=== PATIENT | female | born 1945 | race Caucasian/White ===

== ENCOUNTER 2020-01-25 12:09 | Outpatient (REF) | payer MEDICARE, SELFPAY ==
--- NOTE | 2020-01-25 | XR_ITS ---
EXAMINATION: XR LUMBOSACRAL SPINE CLINICAL INFORMATION: Low back pain. COMPARISON: CT abdomen and pelvis 03/22/2019, radiographs lumbar spine 01/14/2017 TECHNIQUE: Three views of the lumbosacral spine. FINDINGS: There is normal lumbar segmentation with 5 nonrib-bearing lumbar vertebrae of normal height and normal lumbar lordosis. There is no lumbar vertebral compression, spondylolisthesis, destructive process. There are degenerative disc changes again noted with disc narrowing L2-L3 and vertebral spurring L2-L5. Facet degeneration is present L4-L5 and L5-S1. The SI joints and visualized sacrum are unremarkable. XR/XR lumbar spine 2-3V IMPRESSION: 1. Degenerative disc changes. Lower lumbar facet degeneration. 2. No vertebral compression, spondylolisthesis, destructive process.
== END 2020-01-25 12:10 | disposition home or self-care (01) ==
LOC: HO.HMGCX 12:09
PROVIDERS: PCP Internal Medicine; Visit Provider Internal Medicine
DX: M54.5 Low back pain (principal)
CPT/HCPCS: 72100

== ENCOUNTER 2020-08-16 14:02 | Outpatient (REF) | payer MEDICARE, SELFPAY ==
--- NOTE | ~2020-08-16 | XR_ITS ---
EXAMINATION: XR LUMBOSACRAL SPINE CLINICAL INFORMATION: Low back pain COMPARISON: Lumbar spine radiograph from 01/14/2017 TECHNIQUE: Three views of the lumbosacral spine. FINDINGS: No acute visible fracture or dislocation. Multilevel degenerative changes greatest at L5-S1 with disc space narrowing, osteophyte formation, and lower lumbar spine facet arthropathy. Vertebral body heights and disc spaces are otherwise maintained. Posterior elements are intact. Paraspinal soft tissues are unremarkable. Visualized bowel gas is unremarkable. Atherosclerotic calcifications aorta are noted. XR/XR lumbar spine 2-3V IMPRESSION: 1. No acute visible fracture or dislocation. 2. Mild multilevel degenerative changes with L5-S1.
== END 2020-08-16 14:03 | disposition home or self-care (01) ==
LOC: HO.HMGCX 14:02
PROVIDERS: PCP Internal Medicine; Visit Provider Internal Medicine
DX: M54.5 Low back pain (principal)
CPT/HCPCS: 72100

== ENCOUNTER 2020-09-06 13:46 | Outpatient (REF) | payer MEDICARE, SELFPAY ==
--- NOTE | ~2020-09-06 | MM_ITS ---
EXAMINATION: MM SCREENING DIGITAL BREAST TOMOSYNTHESIS, BILATERAL CLINICAL INFORMATION: Screening. Asymptomatic. The lifetime risk of breast cancer based on the Tyrer-Cuzick Model is 8.8%. COMPARISON: Mammography: March 07, 2018 and studies dating back to May 10, 2011 TECHNIQUE: Digital breast tomosynthesis is performed in both the craniocaudal and mediolateral oblique views along with computer-aided detection (CAD). Synthesized 2D images are generated from the tomosynthesis. FINDINGS: There are scattered areas of fibroglandular density (ACR BI-RADS breast composition Category b). There are no significant masses, abnormal calcifications, or other abnormalities. MM/MM tomosynthesis screening BI IMPRESSION: There are no significant changes from prior study. ASSESSMENT: BI-RADS 1: Negative RECOMMENDATION: Routine annual mammography screening. This patient's information was entered into a reminder system with a target due date for their next mammogram.
== END 2020-09-06 13:47 | disposition home or self-care (01) ==
LOC: HO.MAMMO 13:46
PROVIDERS: Visit Provider Internal Medicine
DX: Z12.31 Encounter for screening mammogram for malignant neoplasm of breast (principal)
CPT/HCPCS: 77063; 77067

== ENCOUNTER → 2020-09-26 12:39 | Outpatient (REF) | payer MEDICARE, SELFPAY ==
--- NOTE | 2020-09-26 13:00 | CA_ITS ---
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 The visually estimated ejection fraction is between 60-65%. - There is mild calcification of the aortic valve. Findings Left Ventricle Normal left ventricular cavity size. There is mildly increased left ventricular wall thickness. The left ventricular systolic function is normal. The visually estimated ejection fraction is between 60-65%. There is no evidence of regional wall motion abnormalities. E/E prime ratio is >15, consistent with elevated filling pressures. Evidence suggests grade I (mild) diastolic dysfunction. Right Ventricle Normal right ventricular cavity size and systolic function. Atria The left atrium is normal in size. The right atrium is normal in size. Aortic Valve There is a normal trileaflet aortic valve. There is mild calcification of the aortic valve. There is no aortic valve stenosis. There is no aortic valve regurgitation. Mitral Valve The mitral valve appears normal. There is no mitral valve regurgitation. There is no mitral valve stenosis. Pulmonic Valve The pulmonic valve was not well visualized. Tricuspid Valve Normal tricuspid valve structure. There is trace tricuspid valve regurgitation. The pulmonary artery systolic pressure is normal. Great Vessels The asc aorta is normal in size. Venous The inferior vena cava is normal in size and collapses greater than 50% with inspiration. Pericardium/Pleural There is a trivial pericardial effusion. Prior Study Comparison No prior study available for comparison. Measurements 2D Linear Measurements RVIDd: 2.82 RVIDd Index: 1.51 IVSd: 0.85 0.6-0.9/0.6-1.0 cm LVIDd: 4.31 3.9-5.3/4.2-5.9 cm LVIDd Index: 2.30 2.4-3.2/2.2-3.1 cm/m2 LVIDs: 2.88 2.0-3.6 cm LVPWd: 1.30 0.7-1.1 cm Ao Root: 2.80 2.1-3.5 cm LA Diam: 2.90 2.7-3.8/3.0-4.0 cm LAIDs Index: 1.55 1.5-2.3 cm/m2 LV Mass: 197.10 67-162/88-224 g LV Mass Index: 105.40 43-95/49-115 g/m2 LVOT Diam: 2.00 3.0+(-)1.3 cm 2D Systolic Function EF 4C: 61.40 >55% EF 2C: 62.00 >55% EF BiP: 60.10 >55% Mitral Valve MV Pk E: 0.78 MV PK A: 0.93 MV Decel Time: 199.00 E/A: 0.80 E'Lateral: 5.00 E'Medial: 4.13 E/E' Med: 19.00 E/E' Lat: 15.70 Aortic Valve AoV Pk Tin: 1.75 AoV Mn Tin: 1.23 AoV VTI: 0.35 AoV Pk Grad: 12.00 Aov Mn Grad: 7.00 TABATHA Cont.VTI: 2.29 LVOT LVOT Pk Tin: 1.04 LVOT Mn Tin: 0.72 LVOT VTI: 0.25 LVOT Pk Grad: 4.00 LVOT Mn Grad: 2.00 LVOT Diam: 2.00 LVOT Area: 3.14 Diastolic Function MV Pk E: 0.78 MV Pk A: 0.93 E/A: 0.80 E'Medial: 4.13 E/E' Med: 19.00 E' Laterial: 5.00 E/E' Lat: 15.70 Right Ventricle TAPSE (mm): 2.14 Tricuspid Valve TR Pk Tin: 2.58 TR Pk Grad: 27.00 RA Press: 3.00 RVSP: 30.00 Great Vessels Aorta Ao Root-2D: 2.80 2.0-3.7 cm Ao Asc: 3.00 2.1-3.4 cm Updated in Other Vendor System with Status of Final Quique Loco MD electronically signed on 09/28/2020 2:37:49 PM with status of Final
== END ==
LOC: HO.CARD 12:39
PROVIDERS: Visit Provider Internal Medicine
DX: R01.1 Cardiac murmur, unspecified (principal)
CPT/HCPCS: 93306

== ENCOUNTER 2021-06-02 10:45 | Emergency (ER) | payer MEDICARE, SELFPAY ==
--- NOTE | ~2021-06-02 | CT_ITS ---
EXAMINATION: CT ABDOMEN AND PELVIS WITH CONTRAST CLINICAL INFORMATION: Abdominal pain COMPARISON: None TECHNIQUE: Multidetector volumetric images were obtained from the superior aspect of the liver through the pubic symphysis following administration 85 mL of Omnipaque 350 intravenous contrast. Sagittal and coronal reformatted images were obtained on the technologist's workstation. Oral contrast: No This CT examination was performed using dose optimization techniques as appropriate, variously including the following: *Automated exposure control *Adjustment of mA and/or kV according to patient size (this includes techniques or standardized protocols for targeted exams where dose is matched to indication/reason for exam; i.e. extremities or head) *Use of iterative reconstruction technique DLP: 964 mGy-cm FINDINGS: LUNG BASES: The visualized lung bases are unremarkable. LIVER, GALLBLADDER, AND BILIARY TREE: The liver is normal in size, shape, and attenuation. No focal hepatic lesion or biliary ductal dilatation is present. The gallbladder is unremarkable with no evidence of radiopaque gallstones, gallbladder wall thickening, or obvious pericholecystic inflammatory changes. PANCREAS: Unremarkable. SPLEEN: Unremarkable. ADRENAL GLANDS: Unremarkable. KIDNEYS AND URETERS: The kidneys are normal in size, shape, and attenuation. No hydronephrosis, hydroureter, or calculi seen. No perinephric stranding. There is a 5 mm radiopaque calculi lower pole calyx right kidney and 5 cm exophytic cyst lower pole right kidney. BLADDER: Unremarkable. GASTROINTESTINAL TRACT: There is scattered stool and gas seen throughout the colon. There is diffuse pericolic fat stranding in sigmoid colon consistent with acute diverticulitis. No drainable abscess. In addition there is diffuse mural thickening involving the descending colon with very few diverticula question underlying colitis is questioned. There is mild pericolic fat stranding as well. The ascending and the transverse colon is normal. The small bowel loops are normal caliber. Stomach is nondistended. ABDOMINAL WALL: There is small amount of hernia containing fat. LYMPH NODES: Normal. VASCULAR: Unremarkable. PELVIC VISCERA: There is minimal fluid posterior to the uterus in the cul-de-sac. OSSEOUS STRUCTURES: There are degenerative disc changes with vacuum disc standardized 2-3, L3-L4, L4-L5 and L5/S1 disc levels with mild ventral and posterior spondylosis. No lytic process seen. CT/CT abdomen pelvis w con IMPRESSION: Colonic diverticulosis with diverticulitis. In addition there is descending colon mural thickening suspicious for colitis. There is no abscess or proximal bowel obstruction seen. The appendix is normal caliber. Right renal cyst and a nonobstructive 5 mm radiopaque calculi lower pole right kidney. Fleischner guidelines were followed.
[2021-06-02 11:02] VITALS: BP 158/90; PULSE 92; RESP 18; TEMP 37.1; O2SAT 96; BMI 35.1
--- NOTE | 2021-06-02 11:19 | ED.GIBLEED ---
HPI - GI Bleed General Chief complaint: GI Bleed Stated complaint: Rectal bleed Time Seen by Provider: 06/02/21 11:19 Source: patient Mode of arrival: ambulatory Limitations: no limitations History of Present Illness HPI Narrative: Patient is a 75 year old female presenting to the emergency department today with lower abdominal pain and bright red blood in her stools. Patient states that she ate a 3 egg omelette that had ham and bo in it yesterday and right after that, she began to have abdominal cramping and bright red blood in her stools. Patient states that this happens every 4 months or so and usually resolves on it's own. Patient denies any dizziness, lightheadedness, nausea, vomiting, fever, chills, blurry vision, double vision, loss of vision, chest pain, difficulty breathing, shortness of breath, back pain, night sweats, pain with urination, increased urinary frequency, increased urinary urgency, blood in her urine, syncope or a near syncopal episode, recent trauma or falls, bowel incontinence, bladder incontinence, bowel retention, bladder retention, or any other complaints at this time. Patient states that she does not take any anti-coagulant medications. MD complaint: blood streaked stool Onset (ago): hour(s) Pain Consistency: intermittent Severity: mild Relieving factors: none Exacerbating factors: none Context: unusual food Associated symptoms: abdominal pain Treatments Prior to Arrival: none Related Data Allergies Allergy/AdvReac Type Severity Reaction Status Date / Time oxycodone [OXYCODONE] Allergy Severe N/V Unverified 11/19/19 15:12 aspirin [ASPIRIN] Allergy Intermediate GI Unverified 11/19/19 15:12 UPSET/BLEEDING latex [LATEX] Allergy Intermediate RASH Unverified 11/19/19 15:12 NSAIDS (Non-Steroidal Allergy Intermediate GI Unverified 11/19/19 15:12 Anti-Inflamma UPSET/BLEEDING [NSAIDS (NON-STEROIDAL ANTI-INFLAMMA] Review of Systems Constitutional: Constitutional: Reports no additional constitutional complaints, Denies chills, Denies fever(s) and Denies night sweats Eyes: Eyes: Reports no additional eye complaints, Denies blurry vision, Denies change in vision, Denies diplopia, Denies eye discharge, Denies loss of vision and Denies eye pain ENT: Denies dizziness Cardiovascular: Cardiovascular: Reports no additional cardiovascular complaints, Denies chest pain, Denies lightheadedness, Denies Loss of Consciousness and Denies dyspnea Respiratory: Respiratory: Reports no additional respiratory complaints and Denies dyspnea Gastrointestinal: Gastrointestinal: Reports no additional gastrointestinal complaints, Reports abdominal pain, Denies melena, Reports hematochezia, Denies change in bowel habits and Denies change in stool character Genitourinary: Genitourinary: Denies hematuria, Denies urinary frequency, Denies dysuria, Denies urinary incontinence, Denies urinary hesitancy and Denies urinary urgency Musculoskeletal: Musculoskeletal: Reports no additional musculoskeletal complaints, Denies numbness and Denies tingling Neurologic: Denies dizziness, Denies loss of vision, Denies numbness and Denies tingling Psychiatric: Psychiatric: Reports no additional psychiatric complaints Endocrine: Endocrine: Reports no additional endocrine complaints Hematologic/Lymphatic: Hematologic/Lymphatic: Reports no additional hematologic/lymphatic complaints Allergic/Immunologic: Allergic/Immunologic: Reports no additional allergic/immunologic complaints PMFSH Past Medical History Attestation statement: The following information was validated with the patient. Source: old records reviewed Medical History GI bleed Social History Social History Alcohol intake: never Patient Tobacco Use Status: Former Tobacco user Use of substances other than those prescribed or required for medical reasons: No Substance Use Frequency Other:: cbd drops Advance Directives: No Advance Directives Information Provided: No Physical Exam Vital Signs: Vital Signs: Last Vital Signs Temp 98.1 F 06/02/21 15:00 Pulse 88 06/02/21 15:00 Resp 18 06/02/21 15:00 BP 161/70 H 06/02/21 15:00 Pulse Ox 95 06/02/21 15:00 BMI result Body Mass Index 35.1 Const: General: cooperative, no acute distress, alert and awake Nutritional Appearance: well nourished Orientation/consciousness: patient oriented x3 Limitations: no limitations HEENT: Head: Yes normal to inspection and Yes atraumatic Ears: hearing grossly normal bilaterally and external ears normal General nose exam: Normal external nose present, no nasal discharge noted and no epistaxis Face and sinus: Yes normal facial exam, No abrasion and No laceration Mouth: Normal oral and palatal mucosa present, no drooling and no muffled voice Eyes: General: appearance normal, both eyes and all related structures Periorbital: periorbital findings normal Eyelids: Yes eyelids normal Conjunctivae: conjunctivae normal Pupils: Equal, round and reactive pupils present EOM: EOMs intact bilaterally Neck: Neck: Yes normal visual inspection, Yes full ROM and Yes no lymphadenopathy Chest: Chest palpation & inspection: normal inspection of the chest Resp: Effort & Inspection: normal respiratory effort and able to speak in complete sentences Auscultation: clear to auscultation bilaterally Cardio: Rate: regular rate Rhythm: regular rhythm GI: Inspection: Yes normal to inspection Palpation (GI): Soft to palpation, not firm, nontender, no guarding and not rigid Neuro: General: patient oriented x3 and moves all extremities Cranial nerves: Yes Equal, round and reactive pupils present Cognition (Neuro): normal cognition Motor exam (neuro): 5/5 motor strength present throughout Sensory Exam: Normal double simultaneous stimulation for sensation Coordination: [id number] test normal Extrem: General: Yes normal to inspection, Yes full ROM and Yes capillary refill normal Psych: Appearance: grossly normal Mental Status: mental status grossly normal Affect: normal affect Attitude: cooperative Thought process: Normal thought process present Thought content: Normal thought content present Insight: Good insight present (Psych) MDM - GI Bleed MDM Narrative Medical decision making narrative: Patient is a 75 year old female presenting to the emergency department today with lower abdominal pain and bright red blood in her stool. Patient's physical exam was unremarkable. Patient's blood work showed a slightly elevated troponin at 17.4 that increased to 21.0 on repeat. Patient's EKG was unremarkable. Patient's abdominal CT showed colitis. I explained my physical exam findings as well as all test results to the patient. I answered all questions asked by the patient. I spoke to Dr. 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 Patient received IV fluids, protonix, and PO bentyl which she stated helped her symptoms significantly. I stressed the importance of the patient taking her medication as prescribed. I stressed the importance of the patient following up with her primary care provider, her GI doctor, and with cardiology. I stressed the importance of the patient returning to the emergency department immediately if her symptoms were to worsen or if she were to develop any dizziness, shortness of breath, difficulty breathing, chest pain, blurry vision, loss of vision, nausea, vomiting, abdominal pain, fever, chills, back pain, or any other complaints. Patient verbalized agreement and understanding with this treatment plan and discharge. Differential Diagnosis Differential diagnosis: Likely hemorrhoids, infectious diarrhea, gastritis and Lower gastrointestinal hemorrhage Medical Records Attestation: I reviewed the patient's medical records. Lab Data Attestation: I reviewed the patient's lab results. Result diagrams: 06/02/21 12:24 06/02/21 12:24 Labs: Lab Results 06/02/21 06/02/21 06/02/21 Range/Units 12:24 12:24 12:24 WBC 9.7 (4.8-10.8) X10*3/uL RBC 4.86 (4.20-5.50) X10*6/uL Hgb 14.6 (12.0-16.0) g/dl Hct 43.7 (37.0-47.0) % MCV 89.9 (80.0-98.0) fL MCH 30.0 (27.0-33.0) pg MCHC 33.4 (31.0-35.0) g/dl RDW 12.5 (11.0-16.0) % Plt Count 218 (160-400) X10*3/uL MPV 10.0 (9.4-12.3) fL Immature Gran % (Auto) 0.2 (0.0-0.4) % Neut % (Auto) 74.5 H (45-73) % Lymph % (Auto) 15.4 L (20-40) % Meriwether % (Auto) 8.5 (2-11) % Eos % (Auto) 1.0 (0-4) % Baso % (Auto) 0.4 (0-2) % Lymph # (Auto) 1.5 (1.2-4.9) X10*3/uL Meriwether # (Auto) 0.8 (0.1-1.2) X10*3/uL Eos # (Auto) 0.1 (0.0-0.4) X10*3/uL Baso # (Auto) 0.0 (0.0-0.2) X10*3/uL Abs Immat Gran (auto) 0.02 (0.00-0.03) X10*3/uL Absolute Neuts (auto) 7.2 (2.0-8.3) x10*3/uL Absolute Nucleated RBC 0.000 (0.0-0.012) X10*3/uL Nucleated RBC % (auto) 0.0 (0.0-0.2) /100WBC PT (9.9-13.0) SEC INR (0.9-1.1) APTT (24.1-38.0) SEC Sodium 143 (135-145) mmol/L Potassium 3.8 (3.3-5.1) mmol/L Chloride 107 (96-108) mmol/L Carbon Dioxide 27 (22-29) mmol/L Anion Gap 13 (12-20) BUN 8 L (9-16) mg/dL Creatinine 0.85 (0.5-1.4) mg/dL Estim Creat Clear Calc 58.6 Estimated GFR > 60 Fasting Glucose 141 H (60-99) mg/dL Calcium 9.8 (8.4-10.2) mg/dL Magnesium 2.0 (1.6-2.6) mg/dL Total Bilirubin 1.4 H (0.0-1.0) mg/dL AST 43 H (5-31) U/L ALT 31 (0-31) U/L Alkaline Phosphatase 98 (39-117) U/L Troponin I High Sens 17.4 H (<3.5-17.0) ng/L Total Protein 6.9 (6.5-8.0) g/dL Albumin 4.2 (3.5-5.0) g/dL 06/02/21 06/02/21 Range/Units 12:24 15:38 WBC (4.8-10.8) X10*3/uL RBC (4.20-5.50) X10*6/uL Hgb (12.0-16.0) g/dl Hct (37.0-47.0) % MCV (80.0-98.0) fL MCH (27.0-33.0) pg MCHC (31.0-35.0) g/dl RDW (11.0-16.0) % Plt Count (160-400) X10*3/uL MPV (9.4-12.3) fL Immature Gran % (Auto) (0.0-0.4) % Neut % (Auto) (45-73) % Lymph % (Auto) (20-40) % Meriwether % (Auto) (2-11) % Eos % (Auto) (0-4) % Baso % (Auto) (0-2) % Lymph # (Auto) (1.2-4.9) X10*3/uL Meriwether # (Auto) (0.1-1.2) X10*3/uL Eos # (Auto) (0.0-0.4) X10*3/uL Baso # (Auto) (0.0-0.2) X10*3/uL Abs Immat Gran (auto) (0.00-0.03) X10*3/uL Absolute Neuts (auto) (2.0-8.3) x10*3/uL Absolute Nucleated RBC (0.0-0.012) X10*3/uL Nucleated RBC % (auto) (0.0-0.2) /100WBC PT 12.4 (9.9-13.0) SEC INR 1.1 (0.9-1.1) APTT 30.8 (24.1-38.0) SEC Sodium (135-145) mmol/L Potassium (3.3-5.1) mmol/L Chloride (96-108) mmol/L Carbon Dioxide (22-29) mmol/L Anion Gap (12-20) BUN (9-16) mg/dL Creatinine (0.5-1.4) mg/dL Estim Creat Clear Calc Estimated GFR Fasting Glucose (60-99) mg/dL Calcium (8.4-10.2) mg/dL Magnesium (1.6-2.6) mg/dL Total Bilirubin (0.0-1.0) mg/dL AST (5-31) U/L ALT (0-31) U/L Alkaline Phosphatase (39-117) U/L Troponin I High Sens 21.0 H (<3.5-17.0) ng/L Total Protein (6.5-8.0) g/dL Albumin (3.5-5.0) g/dL Imaging Data CT scan - abdomen: Attestation: I personally reviewed and interpreted this imaging study as follows: My impression: Diverticulosis without diverticulitis Radiologist's impression: EXAMINATION: CT ABDOMEN AND PELVIS WITH CONTRAST? CLINICAL INFORMATION: Abdominal pain? COMPARISON: None? TECHNIQUE: Multidetector volumetric images were obtained from the superior aspect of the liver through the pubic symphysis following administration 85 mL of Omnipaque 350 intravenous contrast. Sagittal and coronal reformatted images were obtained on the technologist's workstation.? Oral contrast: No This CT examination was performed using dose optimization techniques as appropriate, variously including the following: *Automated exposure control *Adjustment of mA and/or kV according to patient size (this includes techniques or standardized protocols for targeted exams where dose is matched to indication/reason for exam; i.e. extremities or head) *Use of iterative reconstruction technique DLP: 964 mGy-cm FINDINGS: LUNG BASES: The visualized lung bases are unremarkable.? LIVER, GALLBLADDER, AND BILIARY TREE: The liver is normal in size, shape, and attenuation. No focal hepatic lesion or biliary ductal dilatation is present. The gallbladder is unremarkable with no evidence of radiopaque gallstones, gallbladder wall thickening, or obvious pericholecystic inflammatory changes.? PANCREAS: Unremarkable.? SPLEEN: Unremarkable.? ADRENAL GLANDS: Unremarkable.? KIDNEYS AND URETERS: The kidneys are normal in size, shape, and attenuation. No hydronephrosis, hydroureter, or calculi seen. No perinephric stranding. There is a 5 mm radiopaque calculi lower pole calyx right kidney and 5 cm exophytic cyst lower pole right kidney. BLADDER: Unremarkable.? GASTROINTESTINAL TRACT: There is scattered stool and gas seen throughout the colon. There is diffuse pericolic fat stranding in sigmoid colon consistent with acute diverticulitis. No drainable abscess. In addition there is diffuse mural thickening involving the descending colon with very few diverticula question underlying colitis is questioned. There is mild pericolic fat stranding as well. The ascending and the transverse colon is normal. The small bowel loops are normal caliber. Stomach is nondistended. ?ABDOMINAL WALL: There is small amount of hernia containing fat.? LYMPH NODES: Normal. VASCULAR: Unremarkable. PELVIC VISCERA: There is minimal fluid posterior to the uterus in the cul-de-sac.? OSSEOUS STRUCTURES: There are degenerative disc changes with vacuum disc standardized 2-3, L3-L4, L4-L5 and L5/S1 disc levels with mild ventral and posterior spondylosis. No lytic process seen.? CT/CT abdomen pelvis w con IMPRESSION: Colonic diverticulosis with diverticulitis. In addition there is descending colon mural thickening suspicious for colitis. There is no abscess or proximal bowel obstruction seen. The appendix is normal caliber. ? Right renal cyst and a nonobstructive 5 mm radiopaque calculi lower pole right kidney. ? Fleischner guidelines were followed. Dictated By: Corby Valverde MD Signed By: Electronically signed by Corby Valverde MD 06/02/21 1604 ECG Data Attestation: I personally reviewed and interpreted this ECG as follows: ECG interpretation date: 06/02/21 ECG interpretation time: 11:41 Prior ECG tracings: available for review Interpretation: Vent. Rate: 085 BPM ? ? Atrial Rate: 085 BPM P-R Int: 152 ms? QRS Dur: 080 ms QT Int: 380 ms ? ? ? P-R-T Axes: 058 -11 050 degrees QTc Int: 452 ms ? Normal sinus rhythm Normal ECG When compared with ECG of 17-JUL-2016 14:10, No significant change was found ? Referred By: Lois Chavez ? Electronically Signed By:QUIQUE WALTER Dictated By: Quique Walter MD Signed By: Electronically signed by Quique Walter MD 06/02/21 9082 Discharge Plan Discharge Clinical Impression: Colitis Patient Disposition: Home, Self-Care Instructions: Colitis (ED) Additional Instructions: Follow up with your primary care provider. Return to the emergency department immediately if your symptoms worsen or if you develop any dizziness, shortness of breath, difficulty breathing, chest pain, blurry vision, loss of vision, nausea, vomiting, abdominal pain, fever, chills, back pain, or any other complaints. Referrals: Rodolfo Stein MD [Primary Care Provider] - 2 days Quique Walter MD [Physician] - 2 days Interventions: ED Discharge Assessment Last Done: 06/02/21 16:51 Discharge Date/Time: 06/02/21 16:53 Print Language: French
--- NOTE | 2021-06-02 11:37 | ECG_ITS ---
Test Reason : ab pain Blood Pressure : / mmHG Vent. Rate : 085 BPM Atrial Rate : 085 BPM P-R Int : 152 ms QRS Dur : 080 ms QT Int : 380 ms P-R-T Axes : 058 -11 050 degrees QTc Int : 452 ms Normal sinus rhythm Normal ECG When compared with ECG of 17-JUL-2016 14:10, No significant change was found Referred By: Lois Chavez Electronically Signed By:GUZMAN WALTER
[2021-06-02 12:28] LABS: MANUAL DIFF FLAG NO
[2021-06-02 12:32] LABS: Basophils Percent Auto 0.4 % (0-2); Eosinophils Absolute Auto 0.1 X10*3/uL (0.0-0.4); Hematocrit 43.7 % (37.0-47.0); Hemoglobin 14.6 g/dl (12.0-16.0); Imm Gran Abs Auto 0.02 X10*3/uL (0.00-0.03); Imm Gran Pct Auto 0.2 % (0.0-0.4); Lymphocytes Absolute Auto 1.5 X10*3/uL (1.2-4.9); Lymphocytes Percent Auto 15.4 % (20-40); Mean Corpuscular HGB Conc 33.4 g/dl (31.0-35.0); Mean Corpuscular Volume 89.9 fL (80.0-98.0); Monocytes Absolute Auto 0.8 X10*3/uL (0.1-1.2); Monocytes Percent Auto 8.5 % (2-11); Neutrophils Absolute Auto 7.2 x10*3/uL (2.0-8.3); Neutrophils Percent Auto 74.5 % (45-73); Platelet Count 218 X10*3/uL (160-400); Red Blood Count 4.86 X10*6/uL (4.20-5.50); Red Cell Distribution Width 12.5 % (11.0-16.0); White Blood Count 9.7 X10*3/uL (4.8-10.8)
[2021-06-02 12:41] LABS: INTERNATIONAL NORM RATIO 1.1 (0.9-1.1); Prothrombin Time 12.4 SEC (9.9-13.0)
[2021-06-02] MEDS: Dicyclomine HCl 10 MG CAPSULE PO (12:42)
[2021-06-02] MEDS: Pantoprazole Sodium 40 MG/10 ML VIAL IVPUSH (12:42)
[2021-06-02] MEDS: ondansetron HCL 4 MG/2 ML VIAL IVPUSH (12:42)
[2021-06-02 12:43] LABS: Partial Thromboplastin Time 30.8 SEC (24.1-38.0)
[2021-06-02] MEDS: 0.9 % Sodium Chloride 1,000 ML 999 ML IVCONT (12:43)
[2021-06-02 12:44] VITALS: BP 177/73; PULSE 81; RESP 18; O2SAT 97
[2021-06-02 12:46] LABS: Alanine Aminotransferase 31 U/L (0-31); Albumin Level 4.2 g/dL (3.5-5.0); Alkaline Phosphatase 98 U/L (39-117); Anion Gap 13 (12-20); Aspartate Amino Transferase 43 U/L (5-31); Bilirubin Total 1.4 mg/dL (0.0-1.0); Blood Urea Nitrogen 8 mg/dL (9-16); Calcium 9.8 mg/dL (8.4-10.2); Carbon Dioxide 27 mmol/L (22-29); Chloride 107 mmol/L (96-108); Creatinine Clr Calc Pharmacy 58.6; Estimated Glomerular Filt Rate > 60; Glucose Fasting 141 mg/dL (60-99); Potassium 3.8 mmol/L (3.3-5.1); Sodium 143 mmol/L (135-145); Total Protein 6.9 g/dL (6.5-8.0)
--- NOTE | 2021-06-02 12:46 | PC.NURSE ---
patient a&ox3, pt c/o 10/11 abd pain, vss, iv inserted, labs drawn, pt medicated per order family at bedside, pt awaiting ct scan, will continue to monitor
[2021-06-02 12:52] LABS: Troponin-I High Sensitivity 17.4 ng/L (<3.5-17.0)
[2021-06-02] MEDS: iohexoL 350 MG/ML 100 ML INFUS..BTL IV (14:41)
[2021-06-02 15:00] VITALS: BP 161/70; PULSE 88; RESP 18; TEMP 36.7; O2SAT 95
== END 2021-06-02 16:53 | disposition home or self-care (01) ==
PROVIDERS: Physician Assistant Medical; Emergency Provider Emergency Medicine; PCP Internal Medicine
DX: K52.9 Noninfective gastroenteritis and colitis, unspecified (principal); K62.5 Hemorrhage of anus and rectum; R10.30 Lower abdominal pain, unspecified
CPT/HCPCS: 36415; 74177; 80053; 83735; 84484; 85025; 85610; 85730; 93005; 96361; 96365; 96375; 99284; J2405; Q9967

== ENCOUNTER 2021-06-06 14:16 | Outpatient (REF) | payer MEDICARE, SELFPAY ==
[2021-06-06 14:32] LABS: MANUAL DIFF FLAG NO
[2021-06-06 14:58] LABS: Basophils Percent Auto 0.6 % (0-2); Eosinophils Absolute Auto 0.2 X10*3/uL (0.0-0.4); Eosinophils Percent Auto 3.3 % (0-4); Hematocrit 42.6 % (37.0-47.0); Hemoglobin 13.6 g/dl (12.0-16.0); Imm Gran Abs Auto 0.03 X10*3/uL (0.00-0.03); Imm Gran Pct Auto 0.5 % (0.0-0.4); Lymphocytes Absolute Auto 1.9 X10*3/uL (1.2-4.9); Lymphocytes Percent Auto 30.5 % (20-40); Mean Corpuscular HGB Conc 31.9 g/dl (31.0-35.0); Mean Corpuscular Hemoglobin 29.9 pg (27.0-33.0); Mean Corpuscular Volume 93.6 fL (80.0-98.0); Mean Platelet Volume 10.6 fL (9.4-12.3); Monocytes Absolute Auto 0.6 X10*3/uL (0.1-1.2); Monocytes Percent Auto 9.7 % (2-11); Neutrophils Absolute Auto 3.5 x10*3/uL (2.0-8.3); Neutrophils Percent Auto 55.4 % (45-73); Platelet Count 211 X10*3/uL (160-400); Red Blood Count 4.55 X10*6/uL (4.20-5.50); Red Cell Distribution Width 12.7 % (11.0-16.0); White Blood Count 6.4 X10*3/uL (4.8-10.8)
[2021-06-06 15:24] LABS: Troponin-I High Sensitivity 6.3 ng/L (<3.5-17.0)
== END 2021-06-06 14:17 | disposition home or self-care (01) ==
LOC: HO.LAB 14:16
PROVIDERS: PCP Internal Medicine; Visit Provider Internal Medicine
DX: R53.83 Other fatigue (principal); R07.9 Chest pain, unspecified
CPT/HCPCS: 36415; 84484; 85025

== ENCOUNTER → 2021-06-12 08:01 | Outpatient (BNVA) | payer MEDICARE, SELFPAY | PROVIDERS: PCP Internal Medicine; Referring Provider Internal Medicine; Visit Provider Internal Medicine | DX: R07.2 Precordial pain (principal); R77.8 Other specified abnormalities of plasma proteins; I10 Essential (primary) hypertension; F41.9 Anxiety disorder, unspecified | CPT/HCPCS: 99202 ==

== ENCOUNTER → 2021-07-05 08:42 | Outpatient (REF) | payer MEDICARE, SELFPAY ==
--- NOTE | ~2021-07-05 | NM_ITS ---
EXERCISE MYOCARDIAL PERFUSION STUDY INDICATION: Chest pain, assess for coronary disease and ischemia TECHNIQUE: The patient was brought in for an exercise perfusion study on 07/05/2021. Patient performed exercise as per Gary protocol and was injected 30 mCi of sestamibi once target heart rate was achieved. Images were obtained using the SPECT gamma camera interlaced with the gating device. Images were obtained in supine position. Resting perfusion study was performed on 07/06/2021. Patient was administered 30 mCi of sestamibi intravenously at rest. Images were then obtained in supine position. Total DLP 114mGy-cm. Images were processed with the software and compared side to side in short axis, horizontal long axis and vertical long axis views. FINDINGS: Raw images were reviewed. The stress perfusion study showed no significant perfusion abnormality. Both uncorrected as well as CT attenuation corrected images were reviewed. The gated study shows normal LV systolic function with calculated LVEF of >70%. LV cavity is normal in size. The gated study shows normal wall thickening and contraction of segments. Resting study shows no significant perfusion abnormality. Gating at rest reveals normal wall motion with ejection fraction at 55%. The findings are consistent with no reversible or fixed perfusion abnormality. NM/NM cardiolite stress test IMPRESSION: 1. Myocardial perfusion imaging study shows normal myocardial perfusion. 2. Gated LVEF is > 70% during stress; 55% during rest. 3. Transient ischemic dilatation not present. EKG component of the test reported separately.
--- NOTE | 2021-07-05 08:47 | CA_ITS ---
Acquisition Time: 2021-07-05 09:10:15 Total Exercise Time: 00:04:25 Test Indications: CP Medications: SEE CHART Protocol: MEHREEN Max HR: 127 BPM 87% of Pred: 145 BPM Max BP: 196/098 mmHG Max Work Load: 5.9 METS Exercise stress test with exercise 4 min 25 sec of Mehreen protocol achieving 87% MPHR, with moderate shortness of breath, no chest discmfort, without arrythmia, with hypertensive response to exercise with max BP 196/98, with EKG showing T wave abn leads I, aVL at baseline and in recovery, without EKG changes meeting criteria for ischemia at peak exercise. In recovery her breathing and BP returned to baseline. Nuclear images pending. Test reviewed with Dr Arroyo. Referred By: Quique Loco Overread By: MARIELLA WARE
== END ==
LOC: HO.CARD 08:42
PROVIDERS: Visit Provider Internal Medicine
DX: R07.2 Precordial pain (principal); R77.8 Other specified abnormalities of plasma proteins
CPT/HCPCS: 78452; 93017; A9500; J0280; J2785

== ENCOUNTER → 2021-08-09 13:49 | Outpatient (REF) | payer MEDICARE, SELFPAY ==
--- NOTE | 2021-08-09 13:51 | CA_ITS ---
Transthoracic Echocardiogram Patient (Last, First, Middle): Merly Mendoza M Gender: Female Date of : 1945 Age: 75 Procedure Date: 08/09/2021 Procedure Type: Transthoracic Echocardiogram Location: OP Height: 157.48 cm Weight: 87.54 kg BSA: 1.88 m2 Heart Rate: bpm BP: 130 / 60 mmHg Building Energy Consultant: SB Referring MD: Quique Loco MD Symptoms: R77.8 - Other specified abnormalities of plasma proteins Study Quality: Good ECG Rhythm: Sinus Conclusions: - The left ventricular systolic function is normal. The visually estimated ejection fraction is between 60-65%. - There is mildly increased left ventricular wall thickness. - There is mild calcification of the aortic valve. Findings Left Ventricle Normal left ventricular cavity size. There is mildly increased left ventricular wall thickness. The left ventricular systolic function is normal. The visually estimated ejection fraction is between 60-65%. There is no evidence of regional wall motion abnormalities. E/E prime ratio is >15, consistent with elevated filling pressures. Evidence suggests grade I (mild) diastolic dysfunction. Right Ventricle Normal right ventricular cavity size and systolic function. Atria Both atria are normal in size. Aortic Valve There is mild calcification of the aortic valve. There is no aortic valve stenosis. There is no aortic valve regurgitation. Mitral Valve The mitral valve appears normal. There is trace mitral valve regurgitation. There is no mitral valve stenosis. Pulmonic Valve The pulmonic valve is likely normal. Tricuspid Valve There is trace tricuspid valve regurgitation. The pulmonary artery systolic pressure is normal. Great Vessels The aortic annulus, sinuses of valsalva, and asc aorta are normal in size. Venous The inferior vena cava is normal in size and collapses greater than 50% with inspiration. Pericardium/Pleural There is no evidence of pericardial effusion. Prior Study Comparison No significant change compared to prior study dated: 09/26/2020. Measurements 2D Linear Measurements IVSd: 1.29 0.6-0.9/0.6-1.0 cm LVIDd: 3.96 3.9-5.3/4.2-5.9 cm LVIDd Index: 2.11 2.4-3.2/2.2-3.1 cm/m2 LVIDs: 2.28 2.0-3.6 cm LVPWd: 1.08 0.7-1.1 cm LA Diam: 3.20 2.7-3.8/3.0-4.0 cm LAIDs Index: 1.70 1.5-2.3 cm/m2 LV Mass: 199.20 67-162/88-224 g LV Mass Index: 105.96 43-95/49-115 g/m2 LVOT Diam: 1.90 3.0+(-)1.3 cm 2D Systolic Function EF 4C: 56.10 >55% Mitral Valve MV Pk E: 1.08 MV PK A: 1.15 MV Decel Time: 200.00 E/A: 0.90 E'Lateral: 4.57 E'Medial: 5.66 E/E' Med: 19.10 E/E' Lat: 23.60 PHT: 59.00 MVA PHT: 3.73 Decel [place]: 5.42 Aortic Valve AoV Pk Tin: 1.64 AoV Mn Tin: 1.19 AoV VTI: 0.37 AoV Pk Grad: 11.00 Aov Mn Grad: 6.00 TABATHA Cont.VTI: 2.48 LVOT LVOT Pk Tin: 1.43 LVOT Mn Tin: 0.98 LVOT VTI: 0.32 LVOT Pk Grad: 8.00 LVOT Mn Grad: 4.00 LVOT Diam: 1.90 LVOT Area: 2.84 Diastolic Function MV Pk E: 1.08 MV Pk A: 1.15 E/A: 0.90 E'Medial: 5.66 E/E' Med: 19.10 E' Laterial: 4.57 E/E' Lat: 23.60 Right Ventricle TAPSE (mm): 21.70 TVS' Tin: 15.20 Great Vessels Aorta Sinus of Valsalva: 2.69 2.0-3.5 cm Ao Asc: 3.30 2.1-3.4 cm Pulmonary Valve PV Pk Tin: 1.38 Peak PV Grad: 8.00 Updated in Other Vendor System with Status of Final Quique Loco MD electronically signed on 08/12/2021 12:26:40 PM with status of Final
== END ==
LOC: HO.CARD 13:49
PROVIDERS: Visit Provider Internal Medicine
DX: R77.8 Other specified abnormalities of plasma proteins (principal); I25.119 Atherosclerotic heart disease of native coronary artery with unspecified angina pectoris; I10 Essential (primary) hypertension
CPT/HCPCS: 93306

== ENCOUNTER → 2021-10-12 14:29 | Outpatient (BNVA) | payer MEDICARE, SELFPAY | PROVIDERS: PCP Internal Medicine; Referring Provider Internal Medicine; Visit Provider Nurse Practitioner Family | DX: R77.8 Other specified abnormalities of plasma proteins (principal); R07.2 Precordial pain; I10 Essential (primary) hypertension; E66.9 Obesity, unspecified; Z68.35 Body mass index [BMI] 35.0-35.9, adult | CPT/HCPCS: 99212 ==

== ENCOUNTER → 2022-03-15 14:26 | Outpatient (BNVA) | payer MEDICARE, SELFPAY | PROVIDERS: PCP Internal Medicine; Visit Provider Internal Medicine | DX: R77.8 Other specified abnormalities of plasma proteins (principal); I10 Essential (primary) hypertension; F41.9 Anxiety disorder, unspecified | CPT/HCPCS: 99212 ==

== ENCOUNTER → 2022-03-27 10:52 | Outpatient (REF) | payer MEDICARE, SELFPAY | LOC: HO.SL 10:52 | PROVIDERS: PCP Internal Medicine; Visit Provider Internal Medicine | DX: G47.33 Obstructive sleep apnea (adult) (pediatric) (principal) | CPT/HCPCS: 95806 ==

== ENCOUNTER 2022-05-28 09:30 | Emergency (ER) | payer MEDICARE, SELFPAY ==
--- NOTE | ~2022-05-28 | CT_ITS ---
EXAMINATION: CT ABDOMEN AND PELVIS WITH CONTRAST CLINICAL INFORMATION: Abdominal pain and bloody diarrhea. History of colitis. COMPARISON: None available. TECHNIQUE: Multidetector volumetric images were obtained from the superior aspect of the liver through the pubic symphysis following administration 85 mL of Omnipaque 350 intravenous contrast. Sagittal and coronal reformatted images were obtained on the technologist's workstation. This CT examination was performed using dose optimization techniques as appropriate, variously including the following: *Automated exposure control *Adjustment of mA and/or kV according to patient size (this includes techniques or standardized protocols for targeted exams where dose is matched to indication/reason for exam; i.e. extremities or head) *Use of iterative reconstruction technique DLP: 645 mGy-cm FINDINGS: Visualized lung bases demonstrate mild dependent atelectasis. The liver demonstrates normal size, contour and attenuation. 3 mm hypodense focus within the inferior right hepatic lobe is stable but too small to accurately characterize. The gallbladder is normal in appearance. The pancreas, spleen and adrenal glands are unremarkable. Symmetrically enhancing kidneys. There is no hydronephrosis of either kidney. Stable approximately 5 cm cyst of the right kidney. A few other smaller bilateral renal hypodensities are again noted but are too small to accurately characterize. 3 mm nonobstructing calculus present within the lower pole the right kidney. Normal caliber loops of small and large bowel. Normal appendix. There is prominent circumferential mucosal thickening involving the entirety of the descending colon and proximal portion of the sigmoid colon. There is mild adjacent pericolonic stranding. There is mild colonic diverticulosis present. Normal caliber abdominal aorta demonstrating moderate atherosclerotic disease. No retroperitoneal lymphadenopathy. Similar small fat-containing umbilical hernia. The bladder is normal in appearance. Unremarkable CT appearance of the uterus. No gross free pelvic fluid. No inguinal lymphadenopathy. Mild to moderate diffuse degenerative changes of the spine. CT/CT abdomen pelvis w IV con IMPRESSION: 1. Prominent circumferential mucosal thickening involving the entirety of the descending colon and proximal portion of the sigmoid colon. There is mild adjacent pericolonic stranding. Findings are most consistent with colitis, likely infectious or inflammatory. 2. Mild colonic diverticulosis. 3. 3 mm nonobstructing right renal calculus. No hydronephrosis. Fleischner guidelines were followed.
[2022-05-28 09:33] VITALS: BP 152/70; PULSE 95; RESP 16; TEMP 36.9; O2SAT 97; BMI 35.6
[2022-05-28 09:55] LABS: MANUAL DIFF FLAG NO
[2022-05-28 09:58] LABS: Basophils Percent Auto 0.4 % (0-2); Eosinophils Absolute Auto 0.1 X10*3/uL (0.0-0.4); Eosinophils Percent Auto 1.2 % (0-4); Hematocrit 45.6 % (37.0-47.0); Hemoglobin 15.2 g/dl (12.0-16.0); Imm Gran Abs Auto 0.03 X10*3/uL (0.00-0.03); Imm Gran Pct Auto 0.3 % (0.0-0.4); Lymphocytes Absolute Auto 1.5 X10*3/uL (1.2-4.9); Lymphocytes Percent Auto 14.7 % (20-40); Mean Corpuscular HGB Conc 33.3 g/dl (31.0-35.0); Mean Corpuscular Hemoglobin 30.4 pg (27.0-33.0); Mean Corpuscular Volume 91.2 fL (80.0-98.0); Monocytes Absolute Auto 0.9 X10*3/uL (0.1-1.2); Monocytes Percent Auto 8.1 % (2-11); Neutrophils Absolute Auto 7.9 x10*3/uL (2.0-8.3); Neutrophils Percent Auto 75.3 % (45-73); Platelet Count 245 X10*3/uL (160-400); Red Cell Distribution Width 12.7 % (11.0-16.0); White Blood Count 10.5 X10*3/uL (4.8-10.8)
[2022-05-28 10:11] LABS: COVID-19 Test Negative (Negative); IDNOW Serial# 08D9AD1C
[2022-05-28 10:15] LABS: Alanine Aminotransferase 28 U/L (0-31); Albumin Level 4.3 g/dL (3.5-5.0); Alkaline Phosphatase 106 U/L (39-117); Anion Gap 13 (12-20); Aspartate Amino Transferase 50 U/L (5-31); Bilirubin Total 1.6 mg/dL (0.0-1.0); Blood Urea Nitrogen 11 mg/dL (9-16); Carbon Dioxide 26 mmol/L (22-29); Chloride 105 mmol/L (96-108); Creatinine Clr Calc Pharmacy 55.5; Estimated Glomerular Filt Rate > 60; Glucose Random 168 mg/dL (60-115); Potassium 4.2 mmol/L (3.3-5.1); Sodium 140 mmol/L (135-145)
--- NOTE | 2022-05-28 10:20 | ED_ITS ---
HPI - Abdominal Pain General Chief Complaint: Abdominal Pain Stated Complaint: rectal bleed Time Seen by Provider: 05/28/22 10:02 Source: patient Mode of arrival: ambulatory Limitations: no limitations History of Present Illness HPI narrative: Patient is a 76yo female with a history of chronic colitis who presented for abdominal cramping x5 days and red blood in her stools which began yesterday. Patient stated that she ate pudding on and she had epigastric cramping that began shortly after. She stated the pain then moved to the suprapubic area. She stated the pain is sharp in nature and intermittent. The pain is relieved by bowel movements. She stated her stools are brown and followed by bright red blood with minimal darker clots. She endorsed profuse sweating and nausea. Patient stated that the sharp cramps occur multiple times every hour. She denies vomiting, dizziness, chest pain, SOB, or syncope. MD elicited complaint: abdominal pain and other (rectal bleeding) Pertinent past history: other (Colitis) Onset (ago): day(s) (5) Pain Consistency: intermittent Location: suprapubic Severity: severe Pain scale (0-10): 10 Quality: sharp Radiation: none Migration to: no migration Exacerbating factors: nothing Relieving factors: bowel movement Associated symptoms: nausea and other (diaphoresis) Related Data Home Medications Medication Instructions Recorded Confirmed latanoprost 0.005 % eye drops 1 drp ophthalmic (eye) DAILY 06/12/21 03/15/22 levothyroxine 50 mcg tablet 50 mcg PO .QOD 06/12/21 03/15/22 levothyroxine 75 mcg tablet 75 mcg PO .QOD 06/12/21 03/15/22 lorazepam 0.5 mg tablet 0.5 mg PO TID PRN 06/12/21 03/15/22 simvastatin 20 mg tablet 20 mg PO BEDTIME 06/12/21 03/15/22 omeprazole 20 mg capsule,delayed 20 mg PO DAILY 10/12/21 03/15/22 release Previous Rx's Medication Instructions Recorded carvedilol 3.125 mg tablet (Coreg) 3.125 mg PO BID 90 days #180 tabs 06/12/21 dicyclomine 10 mg capsule 10 mg PO TID PRN abdominal 05/28/22 discomfort #20 caps levofloxacin 500 mg tablet 500 mg PO DAILY #7 tabs 05/28/22 metronidazole 500 mg tablet 500 mg PO BID 7 days #14 tabs 05/28/22 simethicone 180 mg capsule 180 mg PO BID PRN abdominal 05/28/22 distention #14 caps Allergies Allergy/AdvReac Type Severity Reaction Status Date / Time oxycodone [OXYCODONE] Allergy Severe N/V Verified 03/15/22 14:41 aspirin [ASPIRIN] Allergy Intermediate GI Verified 03/15/22 14:41 UPSET/BLEEDING latex [LATEX] Allergy Intermediate RASH Verified 03/15/22 14:41 NSAIDS (Non-Steroidal Allergy Intermediate GI Verified 03/15/22 14:41 Anti-Inflamma UPSET/BLEEDING [NSAIDS (NON-STEROIDAL ANTI-INFLAMMA] Review of Systems Review of Systems Sharp, suprapubic cramping followed by red blood in stools Yes all other systems are reviewed and are negative [facility] Past Medical History Medical History Anxiety GI bleed Surgical History No pertinent past surgical history S/P tooth extraction Family History Family History (Updated 03/15/22 @ 14:50 by Aline Alvarado) Father S/P CABG x 4 Stroke Heart attack Heart disease Mother Cancer Paternal Uncle Heart disease Diabetes Paternal Uncle Heart disease Daughter Multiple sclerosis Paternal Grandmother Diabetes Maternal Grandfather Stomach cancer Social History Social History Alcohol intake: never Patient Tobacco Use Status: Former Tobacco user Advance Directives: No Advance Directives Information Provided: Yes Physical Exam ED Vital Signs: Vital Signs - 24 hr 05/28/22 09:33 Temperature 98.4 F Pulse Rate 95 Respiratory Rate 16 Blood Pressure 152/70 H Pulse Oximetry 97 Oxygen Delivery Method Room Air BMI result Body Mass Index 35.6 Appearance: Alert. Oriented X3. No acute distress. CVS: Normal heart rate and rhythm. Respiratory: No respiratory distress. Breath sounds normal. Abdomen: Soft and nontender. +BS x4 AKBAR: Normal external inspection, no visible hemorrhoids. Normal rectal tone, no palpable internal hemorrhoids. Brown stool mixed with dark red blood in the rectal vault, small amount Skin: Skin warm and dry. Normal skin color. Normal skin turgor. No rashes. Extremities: No lower extremity edema. Neuro: Oriented X 3. Course Reevaluation(s) Reevaluation #1: Patient has had no bloody bowel movements or able to produce a stool sample while in the emergency department. Her H&H is stable. She is hemodynamically stable. Her pain is well controlled. She is comfortable going home on oral antibiotics with outpatient follow-up. Time: 14:03 Medical Decision Making Medical Decision Making [facility] Narrative: Patient is a 76yo female with a history of chronic colitis who presented for abdominal cramping x5 days and red blood in her stools which began yesterday. She stated this occurs regularly and resolves spontaneously but she is concerned about a perforation due to the severity of pain. Patient's blood work was WNL. Unable to have bowel movement here. Her pain is well controlled, no pain at this current time. CT scan is showing acute colitis involving the descending colon and proximal sigmoid colon. Findings consistent with colitis, infectious versus inflammatory. Discussed results with the patient. She has had similar presentations in the past responded well to oral antibiotics at home. She follows with Dr. Diaz from GI. At this time she is stable for discharge home with oral antibiotics and outpatient follow-up. She will return if she has new or worsening symptoms. Differential Diagnosis Differential Diagnoses: The differential diagnosis associated with the presentation includes Colitis flare, Hemorrhoid, diverticulitis, Perforated ulcer, colitis, abscess, diverticulosis bleeding Admission/Observation Consideration of admission/observation: Escalation of care including admission/observation considered considered admission given bloody stools, however H/H stable, pain is well con trolled. patient comfortable w/ d/c home with abx and will present back to the ER for new/worsening symptoms Lab Data [facility] Lab Attestation statement: I reviewed the patient's lab results. No leukocytosis, H&H is stable, no major electrolyte or metabolic derangement. 05/28/22 09:51 05/28/22 09:51 Labs: Lab Results 05/28/22 05/28/22 05/28/22 Range/Units 09:51 09:51 09:51 WBC 10.5 (4.8-10.8) X10*3/uL RBC 5.00 (4.20-5.50) X10*6/uL Hgb 15.2 (12.0-16.0) g/dl Hct 45.6 (37.0-47.0) % MCV 91.2 (80.0-98.0) fL MCH 30.4 (27.0-33.0) pg MCHC 33.3 (31.0-35.0) g/dl RDW 12.7 (11.0-16.0) % Plt Count 245 (160-400) X10*3/uL MPV 10.0 (9.4-12.3) fL Immature Gran % (Auto) 0.3 (0.0-0.4) % Neut % (Auto) 75.3 H (45-73) % Lymph % (Auto) 14.7 L (20-40) % [place] % (Auto) 8.1 (2-11) % Eos % (Auto) 1.2 (0-4) % Baso % (Auto) 0.4 (0-2) % Lymph # (Auto) 1.5 (1.2-4.9) X10*3/uL [place] # (Auto) 0.9 (0.1-1.2) X10*3/uL Eos # (Auto) 0.1 (0.0-0.4) X10*3/uL Baso # (Auto) 0.0 (0.0-0.2) X10*3/uL Abs Immat Gran (auto) 0.03 (0.00-0.03) X10*3/uL Absolute Neuts (auto) 7.9 (2.0-8.3) x10*3/uL Absolute Nucleated RBC 0.000 (0.0-0.012) X10*3/uL Nucleated RBC % (auto) 0.0 (0.0-0.2) /100WBC Sodium 140 (135-145) mmol/L Potassium 4.2 (3.3-5.1) mmol/L Chloride 105 (96-108) mmol/L Carbon Dioxide 26 (22-29) mmol/L Anion Gap 13 (12-20) BUN 11 (9-16) mg/dL Creatinine 0.89 (0.5-1.4) mg/dL Estim Creat Clear Calc 55.5 Estimated GFR > 60 Random Glucose 168 H (60-115) mg/dL Calcium 10.0 (8.4-10.2) mg/dL Total Bilirubin 1.6 H (0.0-1.0) mg/dL AST 50 H (5-31) U/L ALT 28 (0-31) U/L Alkaline Phosphatase 106 (39-117) U/L Total Protein 7.0 (6.5-8.0) g/dL Albumin 4.3 (3.5-5.0) g/dL Urine Color Urine Appearance Urine pH (5.0-9.0) Ur Specific [place] (1.005-1.025) Urine Protein (Neg-Trace) mg/dL Urine Glucose (UA) (Negative) mg/dL Urine Ketones (Negative) mg/dL Urine Blood (Negative) Urine Nitrite (Negative) Ur Leukocyte Esterase (Negative) COVID-19 (KAREN) Negative (Negative) COVID-19 Clin Com See Note 05/28/22 Range/Units 13:25 WBC (4.8-10.8) X10*3/uL RBC (4.20-5.50) X10*6/uL Hgb (12.0-16.0) g/dl Hct (37.0-47.0) % MCV (80.0-98.0) fL MCH (27.0-33.0) pg MCHC (31.0-35.0) g/dl RDW (11.0-16.0) % Plt Count (160-400) X10*3/uL MPV (9.4-12.3) fL Immature Gran % (Auto) (0.0-0.4) % Neut % (Auto) (45-73) % Lymph % (Auto) (20-40) % [place] % (Auto) (2-11) % Eos % (Auto) (0-4) % Baso % (Auto) (0-2) % Lymph # (Auto) (1.2-4.9) X10*3/uL [place] # (Auto) (0.1-1.2) X10*3/uL Eos # (Auto) (0.0-0.4) X10*3/uL Baso # (Auto) (0.0-0.2) X10*3/uL Abs Immat Gran (auto) (0.00-0.03) X10*3/uL Absolute Neuts (auto) (2.0-8.3) x10*3/uL Absolute Nucleated RBC (0.0-0.012) X10*3/uL Nucleated RBC % (auto) (0.0-0.2) /100WBC Sodium (135-145) mmol/L Potassium (3.3-5.1) mmol/L Chloride (96-108) mmol/L Carbon Dioxide (22-29) mmol/L Anion Gap (12-20) BUN (9-16) mg/dL Creatinine (0.5-1.4) mg/dL Estim Creat Clear Calc Estimated GFR Random Glucose (60-115) mg/dL Calcium (8.4-10.2) mg/dL Total Bilirubin (0.0-1.0) mg/dL AST (5-31) U/L ALT (0-31) U/L Alkaline Phosphatase (39-117) U/L Total Protein (6.5-8.0) g/dL Albumin (3.5-5.0) g/dL Urine Color Yellow Urine Appearance Clear Urine pH 5.0 (5.0-9.0) Ur Specific [place] >= 1.030 H (1.005-1.025) Urine Protein Negative (Neg-Trace) mg/dL Urine Glucose (UA) Negative (Negative) mg/dL Urine Ketones Negative (Negative) mg/dL Urine Blood Negative (Negative) Urine Nitrite Negative (Negative) Ur Leukocyte Esterase Negative (Negative) COVID-19 (KAREN) (Negative) COVID-19 Clin Com Independent Interpretation I performed an independent interpretation of an: CT Scan Interpretation: CT scan reviewed, colitis the descending colon noted, no abscess or perforation. No free air, no evidence of bowel obstruction. Agree with radiologist's reading. Radiology Impression Discussion of test interpretation with radiology: I have reviewed the radiologist's reading. Radiologist Impression: CT/CT abdomen pelvis w IV con IMPRESSION: 1.? Prominent circumferential mucosal thickening involving the entirety of the descending colon and proximal portion of the sigmoid colon. There is mild adjacent pericolonic stranding. Findings are most consistent with colitis, likely infectious or inflammatory. 2.? Mild colonic diverticulosis. 3.? 3 mm nonobstructing right renal calculus. No hydronephrosis. Independent Historian Clinical information obtained from an independent historian. History obtained from or confirmed by: Spouse External Record Review External record reviewed: Outpatient record, Prior outpatient labs and Prior outpatient radiology Prescription Management I considered prescription management with: Pain Medication and Antibiotic Chronic Conditions Patient?s care impacted by: Other (colitis) Medications Administered Discontinued Medications Generic Name Dose Route Start Last Admin Trade Name Freq PRN Reason Stop Dose Admin Sodium Chloride 1,000 mls @ 999 mls/hr 05/28/22 10:30 05/28/22 12:04 Ns IVCONT 05/28/22 11:30 Infused .Q1H1M YULIANA Infusion Iohexol 85 ml 05/28/22 10:44 05/28/22 10:46 Iohexol 350 Mg/Ml 100 Ml Infus..Btl IV 05/28/22 10:45 85 ml ONCE ONE Administration Critical Care Time Critical Care Time Critical Care Time: No Discharge Plan Discharge Clinical Impression: Colitis Patient Disposition: Home, Self-Care Instructions: Colitis (ED) Additional Instructions: Your lab workup today was unremarkable. Your urine test not show any evidence of infection. Your CT scan showed colitis. Take the prescribed antibiotics for this. Take the prescribed other medications as directed. Recommend following up with your primary care doctor as well as your GI doctor. Stick to a clear liquid diet for the next 24-48 hours and slowly advanced as tolerated. If you develop new or worsening symptoms call 911 or come back to the ER for further evaluation. Prescriptions: New levofloxacin 500 mg tablet 500 mg PO DAILY Qty: 7 0RF metronidazole 500 mg tablet 500 mg PO BID 7 Days Qty: 14 0RF dicyclomine 10 mg capsule 10 mg PO TID PRN (Reason: abdominal discomfort) Qty: 20 0RF simethicone 180 mg capsule 180 mg PO BID PRN (Reason: abdominal distention) Qty: 14 0RF No Action simvastatin 20 mg tablet 20 mg PO BEDTIME lorazepam 0.5 mg tablet 0.5 mg PO TID PRN latanoprost 0.005 % drops 1 drp ophthalmic (eye) DAILY levothyroxine 50 mcg tablet 50 mcg PO .QOD levothyroxine 75 mcg tablet 75 mcg PO .QOD carvedilol [Coreg] 3.125 mg tablet 3.125 mg PO BID 90 Days Qty: 180 3RF Rx Instructions: must administer with a meal/food omeprazole 20 mg capsule,delayed release(DR/EC) 20 mg PO DAILY Referrals: [facility] [Provider Group] (Recurrent colitis) Rodolfo Stein MD [Primary Care Provider] - (follow up colitis)
[2022-05-28] MEDS: 0.9 % Sodium Chloride 1,000 ML 999 ML IVCONT (10:35)
[2022-05-28] MEDS: iohexoL 350 MG/ML 100 ML INFUS..BTL 85 ML IV (10:46)
[2022-05-28 13:36] LABS: Appearance Urine Clear; Color Urine Yellow; Glucose Urine UA Negative (Negative); Leukocyte Esterase Urine Negative (Negative); Nitrite Urine Negative (Negative); Specific Gravity - Urine >= 1.030 (1.005-1.025); Urine Blood Negative (Negative); Urine Ketones Negative (Negative); Urine Protein Negative (Neg-Trace)
[2022-05-28 14:00] VITALS: BP 164/78; PULSE 80; RESP 16; O2SAT 97
== END 2022-05-28 15:02 | disposition home or self-care (01) ==
PROVIDERS: Physician Assistant; Emergency Provider Student in an Organized Health Care Education/Training Program; PCP Internal Medicine
DX: K52.9 Noninfective gastroenteritis and colitis, unspecified (principal); Z20.822 Contact with and (suspected) exposure to COVID-19; Z20.828 Contact with and (suspected) exposure to other viral communicable diseases; Z79.899 Other long term (current) drug therapy
CPT/HCPCS: 74177; 80053; 81003; 85025; 87635; 96360; 99284; Q9967

== ENCOUNTER 2022-05-31 14:16 | Outpatient (REF) | payer MEDICARE, SELFPAY ==
--- NOTE | ~2022-05-31 | XR_ITS ---
EXAMINATION: XR KNEE, LEFT XR CERVICAL SPINE CLINICAL INFORMATION: Left knee pain. Neck pain. COMPARISON: Selected images of the neck CT of 01/21/2014. TECHNIQUE: Left knee 2 views; AP and lateral. Cervical spine 3 views; AP, lateral and open-mouth views. FINDINGS: Left Knee: There is [id number] narrowing of the medial knee joint space with subarticular sclerosis. Mild narrowing of the lateral knee joint space. No evidence of suprapatellar joint effusion. Narrowing of the patellofemoral joint space. Patellar enthesophyte is noted at the insertion of quadriceps tendon. There is no evidence of acute fracture or dislocation. Cervical Spine: Minimal grade 1 anterolisthesis of C3 over C4. Atlantoaxial distance is normal. Moderate disc space narrowing is noted at C5-C6 and C6-C7 with marginal endplate osteophytes. Mild narrowing of the C4-C5 disc space. No evidence of prevertebral soft tissue swelling. Airway is patent. Bilateral multilevel facet arthropathy. No evidence of cervical ribs. Visualized lung apices are unremarkable. Open-mouth view is unremarkable. XR/XR cervical spine 3V IMPRESSION: 1. No acute fracture or dislocation in the left knee. Tricompartmental osteoarthritic changes in the left knee, greater in the medial and patellofemoral compartments. 2. Cervical spondylosis. Stable mild grade 1 anterolisthesis of C3 over C4.
--- NOTE | ~2022-05-31 | XR_ITS ---
EXAMINATION: XR LUMBOSACRAL SPINE CLINICAL INFORMATION: Low back pain, rule out degenerative disease COMPARISON: Lumbar spine x-ray on 08/16/2020 TECHNIQUE: Three views of the lumbosacral spine. FINDINGS: The lumbar spine maintains normal alignment. Vertebral body heights are maintained. There is multilevel loss of intervertebral disc space with endplate degenerative changes. Facet arthropathy in the lower lumbar spine. 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
--- NOTE | ~2022-05-31 | XR_ITS ---
EXAMINATION: XR KNEE, LEFT XR CERVICAL SPINE CLINICAL INFORMATION: Left knee pain. Neck pain. COMPARISON: Selected images of the neck CT of 01/21/2014. TECHNIQUE: Left knee 2 views; AP and lateral. Cervical spine 3 views; AP, lateral and open-mouth views. FINDINGS: Left Knee: There is [id number] narrowing of the medial knee joint space with subarticular sclerosis. Mild narrowing of the lateral knee joint space. No evidence of suprapatellar joint effusion. Narrowing of the patellofemoral joint space. Patellar enthesophyte is noted at the insertion of quadriceps tendon. There is no evidence of acute fracture or dislocation. Cervical Spine: Minimal grade 1 anterolisthesis of C3 over C4. Atlantoaxial distance is normal. Moderate disc space narrowing is noted at C5-C6 and C6-C7 with marginal endplate osteophytes. Mild narrowing of the C4-C5 disc space. No evidence of prevertebral soft tissue swelling. Airway is patent. Bilateral multilevel facet arthropathy. No evidence of cervical ribs. Visualized lung apices are unremarkable. Open-mouth view is unremarkable. XR/XR knee LT 2V IMPRESSION: 1. No acute fracture or dislocation in the left knee. Tricompartmental osteoarthritic changes in the left knee, greater in the medial and patellofemoral compartments. 2. Cervical spondylosis. Stable mild grade 1 anterolisthesis of C3 over C4.
== END 2022-05-31 14:17 | disposition home or self-care (01) ==
LOC: HO.HMGCX 14:16
PROVIDERS: PCP Internal Medicine; Visit Provider Internal Medicine
DX: M25.562 Pain in left knee (principal); M54.2 Cervicalgia; M54.50 Low back pain, unspecified
CPT/HCPCS: 72040; 72100; 73560

== ENCOUNTER 2022-07-24 20:11 | Emergency (ER) | payer MEDICARE, SELFPAY ==
--- NOTE | ~2022-07-24 | XR_ITS ---
EXAMINATION: XR KNEE, LEFT CLINICAL INFORMATION: Pain COMPARISON: Previous x-ray May 2022 TECHNIQUE: Two views of the left knee. FINDINGS: Bone alignment is normal. No fracture or dislocation. Osteopenia. Arthritis at the medial femoral tibial and patellofemoral joints. Osteophyte at the quadriceps tendon insertion to the patella. Large joint effusion. XR/XR knee LT 2V IMPRESSION: Arthritis and large joint effusion.
--- NOTE | ~2022-07-24 | US_ITS ---
EXAMINATION: US VENOUS ULTRASOUND WITH DOPPLER LOWER EXTREMITY, LEFT CLINICAL INFORMATION: Left lower extremity pain and edema. COMPARISON: Venous ultrasound dated 02/21/2009. TECHNIQUE: Ultrasound of the deep veins is performed from the hip to the calf with compression sonography and color and pulse Doppler assessment. Spectral analysis with color-flow imaging is performed. FINDINGS: There is normal venous compression and respiratory variation and augmented flow. The visualized common femoral vein, superficial femoral vein, profunda femoral vein, popliteal vein, and the trifurcation region shows no evidence of deep venous thrombosis. There is no significant popliteal fossa cyst. If the patient's symptoms persist, followup ultrasound in 5 days 7 days might be of value to exclude proximal propagation from a non-visualized calf vein. US/US venous duplex LE IMPRESSION: No DVT demonstrated in the left lower extremity.
[2022-07-24 20:21] VITALS: BP 135/61; PULSE 80; RESP 18; TEMP 36.8; O2SAT 95; BMI 35.7
--- NOTE | 2022-07-24 20:23 | ED.LOWEXIN ---
HPI - Extremity Injury (Lower) General Chief Complaint: Extremity Injury, Lower Stated Complaint: left knee and leg pain Time Seen by Provider: 07/24/22 21:33 Source: patient Mode of arrival: ambulatory Limitations: no limitations History of Present Illness HPI Narrative: 76-year-old female history of anxiety, GI bleed, colitis presenting to the emergency department complaints of left leg and knee pain, atraumatic in nature for the past few months worsening. Patient reports that her left knee and leg hurt more when she is ambulating, better at rest. She denies trauma to the area. Patient denies long travel, none contraception or hormone replacement therapy, no history of PE or DVT, not anticoagulated. Patient reports that her lower extremities have been swollen for months however unchanged. Patient denies chest pain, shortness of breath, nausea, vomiting, headache, vision changes, dizziness, weakness, fevers, chills. Scheduled to see PCP tomorrow Related Data Home Medications Medication Instructions Recorded Confirmed latanoprost 0.005 % eye drops 1 drp ophthalmic (eye) DAILY 06/12/21 03/15/22 levothyroxine 50 mcg tablet 50 mcg PO .QOD 06/12/21 03/15/22 levothyroxine 75 mcg tablet 75 mcg PO .QOD 06/12/21 03/15/22 lorazepam 0.5 mg tablet 0.5 mg PO TID PRN 06/12/21 03/15/22 simvastatin 20 mg tablet 20 mg PO BEDTIME 06/12/21 03/15/22 omeprazole 20 mg capsule,delayed 20 mg PO DAILY 10/12/21 03/15/22 release Previous Rx's Medication Instructions Recorded carvedilol 3.125 mg tablet (Coreg) 3.125 mg PO BID 90 days #180 tabs 06/12/21 dicyclomine 10 mg capsule 10 mg PO TID PRN abdominal 05/28/22 discomfort #20 caps levofloxacin 500 mg tablet 500 mg PO DAILY #7 tabs 05/28/22 metronidazole 500 mg tablet 500 mg PO BID 7 days #14 tabs 05/28/22 simethicone 180 mg capsule 180 mg PO BID PRN abdominal 05/28/22 distention #14 caps prednisone 20 mg tablet 40 mg PO DAILY 5 days #10 tabs 07/24/22 Allergies Allergy/AdvReac Type Severity Reaction Status Date / Time oxycodone [OXYCODONE] Allergy Severe N/V Verified 03/15/22 14:41 aspirin [ASPIRIN] Allergy Intermediate GI Verified 03/15/22 14:41 UPSET/BLEEDING latex [LATEX] Allergy Intermediate RASH Verified 03/15/22 14:41 NSAIDS (Non-Steroidal Allergy Intermediate GI Verified 03/15/22 14:41 Anti-Inflamma UPSET/BLEEDING [NSAIDS (NON-STEROIDAL ANTI-INFLAMMA] Review of Systems Review of Systems: Constitutional : No Weight loss, No Fever, No Chills, No Fatigue, No Malaise ENT/Mouth : No sore throat, No Rhinorrhea Eyes: No Eye Pain, No Swelling, No Redness Cardiovascular : No Chest Pain, No SOB, No Dyspnea on Exertion, No Orthopnea, + Edema, No Palpitations Respiratory : No Cough, No Sputum, No Wheezing Gastrointestinal : No Nausea, No Vomiting, No Diarrhea, No Constipation, No abdominal Pain, No Hematochezia, No Melena Genitourinary : No Dysuria, No Urinary Frequency, No Hematuria, Musculoskeletal : No joint pain, No Myalgias, + joint swelling, + LLE edema Skin : No Skin Lesions, No rash Neuro : No Weakness, No Numbness, No Dizziness, No Headache Psych : No Anxiety/Panic, No Depression All other systems reviewed and are negative Yes all other systems are reviewed and are negative [facility] Past Medical History Attestation statement: The following information was validated with the patient. Source: old records reviewed and nursing notes reviewed Medical History Anxiety GI bleed Surgical History No pertinent past surgical history S/P tooth extraction Family History Family History Father S/P CABG x 4 Stroke Heart attack Heart disease Mother Cancer Paternal Uncle Heart disease Diabetes Paternal Uncle Heart disease Daughter Multiple sclerosis Paternal Grandmother Diabetes Maternal Grandfather Stomach cancer Social History Social History Alcohol intake: never Patient Tobacco Use Status: Former Tobacco user Smoked in Last 30 Days: No Use of substances other than those prescribed or required for medical reasons: No Advance Directives: No Advance Directives Information Provided: Yes Physical Exam Vital Signs: Vital Signs: Last Vital Signs Temp 98.3 F 07/24/22 20:21 Pulse 70 07/24/22 21:33 Resp 15 07/24/22 21:33 BP 160/80 H 07/24/22 21:33 Pulse Ox 97 07/24/22 21:33 O2 Del Method Room Air 07/24/22 21:33 BMI result Body Mass Index 35.7 vss Appearance: Alert.? Oriented X3.? No acute distress.? Head: Normocephalic, atraumatic, no step-offs or deformities Eyes: Pupils equal, round and reactive to light.? Neck: Normal inspection.? Neck supple.? CVS: Normal heart rate and rhythm.? Pulses normal.? Respiratory: No respiratory distress.? Breath sounds normal.? Abdomen: Soft and nontender.? Skin: Skin warm and dry.? Normal skin color.? Normal skin turgor.? Extremities:+ bilateral lower extremity 2+ pitting edema left lower extremity greater than right lower extremity, positive tenderness to palpation in Prosper sign on the left. Negative on the right..? 5/5 strength to bilateral upper and lower extremities 2+ dorsalis pedis, anterior tibialis and posterior tibialis pulses equal bilateral. Neuro: Oriented X 3.? No motor deficit.? No sensory deficit. CN 2-12 intact Course Course Course Narrative: RME: 76yo F w/PMHx anxiety, HTN, c/o L knee pain and leg cramping x few months. denies travel, hx clots or SOB. denies taking AC +bilateral LE pitting edema > LLE. +Calf ttp. NV intact Labs, XR, LLE Venous duplex ordered Full HPI, ROS and PE to be performed by primary ED provider. Reevaluation(s) Reevaluation #1: CBC appears to be within normal limits. Chemistry with no acute findings requiring intervention. Coags unremarkable. No DVT in the left lower extremity. X-ray of left knee with arthritis and a large joint effusion, I suspect this is all likely secondary to an inflammatory arthritis. Time: 21:49 Reevaluation #2: I did do a joint aspiration to the superior lateral aspect of patella, prior to this I did obtain verbal consent and went over risks versus benefits including infection, cellulitis, pain, recurrence of effusion, patient verbalizes understanding and patient's friend who is a nurse also at bedside to explain this to patient. I was able to successfully get 30 cc of clear joint fluid, will be sent for analysis. Patient tolerated procedure well an Patrice wrap was placed afterwards. This was done under ultrasound guidance. Dr. Hines at the bedside Time: 22:52 Reevaluation #3: Patient will be given Tylenol for pain as well as 1st dose of prednisone. Time: 22:53 Additional Reevaluation(s): BNP within normal limits. Patient feeling well. Will discharge her home she has an appointment with her PCP tomorrow advised her to follow-up with the orthopedic team will discharge home on prednisone. Educated patient on diagnosis and treatment plan, answered all question, patient verbalizes understanding. At this time patient will be discharged home, advised to return with new or worsening symptoms. Educated on worrisome signs and symptoms and when to return. At this time I feel comfortable discharge home. Medications Administered Discontinued Medications Generic Name Dose Route Start Last Admin Trade Name Robert PRN Reason Stop Dose Admin Acetaminophen 975 mg 07/24/22 22:43 07/24/22 22:54 Acetaminophen 325 Mg Tablet PO 07/24/22 22:44 975 mg ONCE ONE Administration Lidocaine HCl 30 ml 07/24/22 21:51 07/24/22 22:06 Lidocaine Hcl 1 % Mpf 30 Ml Vial SUBCUT 07/24/22 21:52 30 ml ONCE ONE Administration Protocol Prednisone 40 mg 07/24/22 22:43 07/24/22 22:57 Prednisone 20 Mg Tablet PO 07/24/22 22:44 40 mg ONCE ONE Administration Medical Decision Making Medical Decision Making [facility] Narrative: 1351 76-year-old female presents for evaluation of left lower extremity pain swelling, left knee pain, for the past few months. Physical exam significant for+ bilateral lower extremity 2+ pitting edema left lower extremity greater than right lower extremity, positive tenderness to palpation in Prosper sign on the left. Negative on the right..? 5/5 strength to bilateral upper and lower extremities 2+ dorsalis pedis, anterior tibialis and posterior tibialis pulses equal bilateral. Concerns for possible DVT versus inflammatory arthritis vs gout . Unlikely arterial occlusion, threatened limb, septic joint,no signs of neurovascular compromise. Unlikely fractures or dislocations. Plan labs, imaging. Differential Diagnosis Differential Diagnoses: The differential diagnosis associated with the presentation includes Concerns for possible DVT versus inflammatory arthritis vs gout. Unlikely arterial occlusion, threatened limb, septic joint, no signs of neurovascular compromise. Unlikely fractures or dislocations. Admission/Observation Consideration of admission/observation: Escalation of care including admission/observation considered Lab Data MDM Lab Attestation statement: I reviewed the patient's lab results. 07/24/22 20:39 07/24/22 20:39 Labs: Lab Results 07/24/22 07/24/22 07/24/22 Range/Units 20:39 20:39 20:39 WBC 7.9 (4.8-10.8) X10*3/uL RBC 4.27 (4.20-5.50) X10*6/uL Hgb 13.2 (12.0-16.0) g/dl Hct 39.5 (37.0-47.0) % MCV 92.5 (80.0-98.0) fL MCH 30.9 (27.0-33.0) pg MCHC 33.4 (31.0-35.0) g/dl RDW 13.1 (11.0-16.0) % Plt Count 210 (160-400) X10*3/uL MPV 9.7 (9.4-12.3) fL Immature Gran % (Auto) 0.4 (0.0-0.4) % Neut % (Auto) 58.4 (45-73) % Lymph % (Auto) 28.8 (20-40) % [place] % (Auto) 9.1 (2-11) % Eos % (Auto) 2.8 (0-4) % Baso % (Auto) 0.5 (0-2) % Lymph # (Auto) 2.3 (1.2-4.9) X10*3/uL [place] # (Auto) 0.7 (0.1-1.2) X10*3/uL Eos # (Auto) 0.2 (0.0-0.4) X10*3/uL Baso # (Auto) 0.0 (0.0-0.2) X10*3/uL Abs Immat Gran (auto) 0.03 (0.00-0.03) X10*3/uL Absolute Neuts (auto) 4.6 (2.0-8.3) x10*3/uL Absolute Nucleated RBC 0.000 (0.0-0.012) X10*3/uL Nucleated RBC % (auto) 0.0 (0.0-0.2) /100WBC ESR (0-20) MM/HR PT 11.6 (10.0-13.1) SEC INR 1.0 (0.9-1.1) Sodium 143 (135-145) mmol/L Potassium 4.2 (3.3-5.1) mmol/L Chloride 110 H (96-108) mmol/L Carbon Dioxide 26 (22-29) mmol/L Anion Gap 11 L (12-20) BUN 10 (9-16) mg/dL Creatinine 0.83 (0.5-1.4) mg/dL Estim Creat Clear Calc 59.5 Estimated GFR > 60 Random Glucose 174 H (60-115) mg/dL Calcium 9.5 (8.4-10.2) mg/dL Total Bilirubin 0.8 (0.0-1.0) mg/dL Direct Bilirubin 0.2 (0.0-0.5) mg/dL AST 33 H (5-31) U/L ALT 18 (0-31) U/L Alkaline Phosphatase 86 (39-117) U/L C-Reactive Protein 0.22 (< or = 0.50) mg/dL B-Natriuretic Peptide (<100) pg/mL Total Protein 6.4 L (6.5-8.0) g/dL Albumin 3.8 (3.5-5.0) g/dL 07/24/22 07/24/22 Range/Units 20:39 20:39 WBC (4.8-10.8) X10*3/uL RBC (4.20-5.50) X10*6/uL Hgb (12.0-16.0) g/dl Hct (37.0-47.0) % MCV (80.0-98.0) fL MCH (27.0-33.0) pg MCHC (31.0-35.0) g/dl RDW (11.0-16.0) % Plt Count (160-400) X10*3/uL MPV (9.4-12.3) fL Immature Gran % (Auto) (0.0-0.4) % Neut % (Auto) (45-73) % Lymph % (Auto) (20-40) % [place] % (Auto) (2-11) % Eos % (Auto) (0-4) % Baso % (Auto) (0-2) % Lymph # (Auto) (1.2-4.9) X10*3/uL [place] # (Auto) (0.1-1.2) X10*3/uL Eos # (Auto) (0.0-0.4) X10*3/uL Baso # (Auto) (0.0-0.2) X10*3/uL Abs Immat Gran (auto) (0.00-0.03) X10*3/uL Absolute Neuts (auto) (2.0-8.3) x10*3/uL Absolute Nucleated RBC (0.0-0.012) X10*3/uL Nucleated RBC % (auto) (0.0-0.2) /100WBC ESR 11 (0-20) MM/HR PT (10.0-13.1) SEC INR (0.9-1.1) Sodium (135-145) mmol/L Potassium (3.3-5.1) mmol/L Chloride (96-108) mmol/L Carbon Dioxide (22-29) mmol/L Anion Gap (12-20) BUN (9-16) mg/dL Creatinine (0.5-1.4) mg/dL Estim Creat Clear Calc Estimated GFR Random Glucose (60-115) mg/dL Calcium (8.4-10.2) mg/dL Total Bilirubin (0.0-1.0) mg/dL Direct Bilirubin (0.0-0.5) mg/dL AST (5-31) U/L ALT (0-31) U/L Alkaline Phosphatase (39-117) U/L C-Reactive Protein (< or = 0.50) mg/dL B-Natriuretic Peptide 88 (<100) pg/mL Total Protein (6.5-8.0) g/dL Albumin (3.5-5.0) g/dL Independent Interpretation I performed an independent interpretation of an: Plain X-Ray and Ultrasound Radiology Impression Discussion of test interpretation with radiology: I have reviewed the radiologist's reading. Core Measures AMI core measures followed: Yes Measure exclusions: not indicated Critical Care Time Critical Care Time Critical Care Time: Yes Total Critical Care Time: 35 Attestation: I attest to this time spent taking care of the patient, obtaining history, physical, reviewing labs, imaging, speaking to my attending Discharge Plan Discharge Clinical Impression: Effusion, left knee Patient Disposition: Home, Self-Care Instructions: Swollen Knee Joint (ED), Swollen Joint (ED) Additional Instructions: Take your medications as prescribed. If you were prescribed antibiotics today, it is important that you take your medication to their entirety, do not skip any doses, do not finish them early. Follow-up with your primary care provider this week. Return to the emergency department with new or worsening symptoms. Such as fevers, chills, chest pain, shortness of breath, nausea, vomiting, dizziness, headache, vision changes, lethargy In case of emergency call 911 Apply Patrice wrap as instructed. Follow up with orthopedics as needed Normal BNP and labs are reassuring XR/XR knee LT 2V IMPRESSION: Arthritis and large joint effusion. ? US/US venous duplex LE LT IMPRESSION: No DVT demonstrated in the left lower extremity. FINDINGS: There is normal venous compression and respiratory variation and augmented flow. The visualized common femoral vein, superficial femoral vein, profunda femoral vein, popliteal vein, and the trifurcation region shows no evidence of deep venous thrombosis. ? There is no significant popliteal fossa cyst. If the patient's symptoms persist, followup ultrasound in 5 days 7 days might be of value to exclude proximal propagation from a non-visualized calf vein. Prescriptions: New prednisone 20 mg tablet 40 mg PO DAILY 5 Days Qty: 10 0RF No Action levofloxacin 500 mg tablet 500 mg PO DAILY Qty: 7 0RF metronidazole 500 mg tablet 500 mg PO BID 7 Days Qty: 14 0RF dicyclomine 10 mg capsule 10 mg PO TID PRN (Reason: abdominal discomfort) Qty: 20 0RF simethicone 180 mg capsule 180 mg PO BID PRN (Reason: abdominal distention) Qty: 14 0RF simvastatin 20 mg tablet 20 mg PO BEDTIME lorazepam 0.5 mg tablet 0.5 mg PO TID PRN latanoprost 0.005 % drops 1 drp ophthalmic (eye) DAILY levothyroxine 50 mcg tablet 50 mcg PO .QOD levothyroxine 75 mcg tablet 75 mcg PO .QOD carvedilol [Coreg] 3.125 mg tablet 3.125 mg PO BID 90 Days Qty: 180 3RF Rx Instructions: must administer with a meal/food omeprazole 20 mg capsule,delayed release(DR/EC) 20 mg PO DAILY [place] [facility] [place] [facility] [place]Provider Group] - 1 week Rodolfo Stein MD [Primary Care Provider] - 2 days
[2022-07-24 20:42] LABS: MANUAL DIFF FLAG NO
[2022-07-24 20:44] LABS: Basophils Percent Auto 0.5 % (0-2); Eosinophils Absolute Auto 0.2 X10*3/uL (0.0-0.4); Eosinophils Percent Auto 2.8 % (0-4); Hematocrit 39.5 % (37.0-47.0); Hemoglobin 13.2 g/dl (12.0-16.0); Imm Gran Abs Auto 0.03 X10*3/uL (0.00-0.03); Imm Gran Pct Auto 0.4 % (0.0-0.4); Lymphocytes Absolute Auto 2.3 X10*3/uL (1.2-4.9); Lymphocytes Percent Auto 28.8 % (20-40); Mean Corpuscular HGB Conc 33.4 g/dl (31.0-35.0); Mean Corpuscular Hemoglobin 30.9 pg (27.0-33.0); Mean Corpuscular Volume 92.5 fL (80.0-98.0); Mean Platelet Volume 9.7 fL (9.4-12.3); Monocytes Absolute Auto 0.7 X10*3/uL (0.1-1.2); Monocytes Percent Auto 9.1 % (2-11); Neutrophils Absolute Auto 4.6 x10*3/uL (2.0-8.3); Neutrophils Percent Auto 58.4 % (45-73); Platelet Count 210 X10*3/uL (160-400); Red Blood Count 4.27 X10*6/uL (4.20-5.50); Red Cell Distribution Width 13.1 % (11.0-16.0); White Blood Count 7.9 X10*3/uL (4.8-10.8)
[2022-07-24 20:48] LABS: Prothrombin Time 11.6 SEC (10.0-13.1)
[2022-07-24 20:58] LABS: Alanine Aminotransferase 18 U/L (0-31); Albumin Level 3.8 g/dL (3.5-5.0); Alkaline Phosphatase 86 U/L (39-117); Anion Gap 11 (12-20); Aspartate Amino Transferase 33 U/L (5-31); Bilirubin Direct 0.2 mg/dL (0.0-0.5); Bilirubin Total 0.8 mg/dL (0.0-1.0); Blood Urea Nitrogen 10 mg/dL (9-16); Calcium 9.5 mg/dL (8.4-10.2); Carbon Dioxide 26 mmol/L (22-29); Chloride 110 mmol/L (96-108); Creatinine Clr Calc Pharmacy 59.5; Estimated Glomerular Filt Rate > 60; Glucose Random 174 mg/dL (60-115); Potassium 4.2 mmol/L (3.3-5.1); Sodium 143 mmol/L (135-145); Total Protein 6.4 g/dL (6.5-8.0)
[2022-07-24 21:33] VITALS: BP 160/80; PULSE 70; RESP 15; O2SAT 97
--- NOTE | 2022-07-24 21:53 | PC.NURSE ---
pt c/o L knee pain and swelling, denies injury, pain increases upon ambulation h/o colitis aox4 friend at bedside
[2022-07-24] MEDS: Lidocaine HCl 1 % MPF 30 ML VIAL SUBCUT (22:06)
[2022-07-24 22:27] LABS: C Reactive Protein 0.22 mg/dL (< or = 0.50)
[2022-07-24 22:52] LABS: Erythrocyte Sedimentation Rate 11 MM/HR (0-20)
[2022-07-24] MEDS: Acetaminophen 325 MG TABLET 975 MG PO (22:54)
[2022-07-24] MEDS: predniSONE 20 MG TABLET 40 MG PO (22:57)
[2022-07-24 23:14] LABS: B Type Natriuretic Peptide 88 pg/mL (<100)
--- NOTE | 2022-07-24 23:23 | PC.NURSE ---
Discharge instructions given and explained to patient aox4 no apparent distress ambulates safely and independently
[2022-07-24 23:25] VITALS: BP 148/68; PULSE 70; RESP 18; TEMP 36.7; O2SAT 98
[2022-07-25 13:06] LABS: Uric Acid 5.3 mg/dL (2.4-5.7)
== END 2022-07-24 23:32 | disposition home or self-care (01) ==
PROVIDERS: Physician Assistant; Emergency Provider Internal Medicine; PCP Internal Medicine
DX: M25.562 Pain in left knee (principal); M25.462 Effusion, left knee; M79.605 Pain in left leg; M79.89 Other specified soft tissue disorders
CPT/HCPCS: 20611; 36415; 73560; 80048; 80076; 83880; 84550; 85025; 85610; 85652; 86140; 87070; 87073; 87205; 89060; 93971; 99284; 99285

== ENCOUNTER 2022-09-10 12:34 | Outpatient (AMB) | payer MEDICARE, SELFPAY ==
[2022-09-10 12:34] VITALS: BMI 35.7
--- NOTE | 2022-09-10 12:34 | MHC.OFFVIS ---
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 Patient reports that she has had left knee pain for months now. This pain is described as a sharp/stabbing pain in the knee, this brought her to the ED where they ruled out DVT and aspirated the knee. Since having the knee aspirated the pain has decreased but is still present. Reports history of a slip and fall about 15 years ago, since then she has had pain in the left knee and the pelvis She complains of pain in the pelvis/ lower back when weight bearing, she explains her pain as intolerable. Pain is better when sitting or laying. She has colitis and cannot take NSAID. 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 She says her primary complaint is of lower back pain, which she thought she was being seen for. She was seen in the ED on 07/24/22 for knee pain and swelling, where her knee was aspirated. This helped her pain somewhat but did not resolve it. She complains of pain with daily activity, which she describes as sharp. She says she had no relief from a steroid injection by an outside provider. She reports slipping and falling in 2007 which trigger her knee pain as well as pain in her lower back & groin. She says her LBP and groin pain are unbearable and worse with activity. This pain improves when sitting or laying. She says this pain occasionally radiates down her leg, into her knee & calf. Walking is difficult and she feels very limited in her daily activity by her pain. She has colitis and cannot take NSAIDs. [facility] Medical History Anxiety GI bleed Surgical History No pertinent past surgical history S/P tooth extraction Family History Father S/P CABG x 4 Stroke Heart attack Heart disease Mother Cancer Paternal Uncle Heart disease Diabetes Paternal Uncle Heart disease Daughter Multiple sclerosis Paternal Grandmother Diabetes Maternal Grandfather Stomach cancer Social History Alcohol intake: never Patient Tobacco Use Status: Former Tobacco user Review of Systems Const All systems reviewed & are unremarkable except as noted in HPI and below Physical Exam Vital Signs: BMI result Body Mass Index 35.7 Const General: no acute distress, alert and awake Orientation/consciousness: patient oriented x3 HEENT Head: Yes normocephalic and Yes atraumatic Eyes EOM: EOMs intact bilaterally Resp Effort & Inspection: normal respiratory effort and able to speak in complete sentences Cardio Jugular venous distension: no JVD Skin General skin exam: turgor normal Rashes: no rashes Neuro General: patient oriented x3 Extrem Other: Left Knee: Moderate effusion TTP medial joint line antalgic gait Psych Appearance: grossly normal Affect: normal affect Attitude: cooperative Results Reviewed Results Reviewed: I personally reviewed relevant radiographs. Moderate left knee osteoarthritis Assessment & Plan Assessment & Plan (1) Osteoarthritis of left knee: Code(s): M17.12 - Unilateral primary osteoarthritis, left knee Plan: This is a 76 year old woman with left knee OA & moderate effusion. She has pain with daily activity, which she describes as sharp. She had limited relief from a steroid injection in the past, and cannot take NSAIDs. I discussed her diagnosis and treatment options. I think she would benefit from being seen by Pain Management considering her LBP and failure of conservative treatment options. I referred her to Pain Management, and ordered PT. She can follow up prn. (2) Lumbar radiculopathy: Code(s): M54.16 - Radiculopathy, lumbar region Plan: Sharp pain in the lumbar region & pelvic girdle, radiating down into her left leg. Onset in 2007 S/P fall. Pain is relieved when sitting or lying prone. Denies numbness, tingling, or burning. I discussed her diagnosis and treatment options. I referred her to Pain Management for assessment (3) Effusion, left knee: Code(s): M25.462 - Effusion, left knee Plan Scribed for Nigel Higgins MD by Romie Patrick, medical records analyst, on 09/10/22 at 1:00 PM, EST. Orders: Orders PT Evaluation and Treatment Today M17.12 - Unilateral primary osteoarthritis, left knee, M54.16 - Radiculopathy, lumbar region Referrals Pain Management Referral M17.12 - Unilateral primary osteoarthritis, left knee, M54.16 - Radiculopathy, lumbar region Coding Level of Care Code New Pt Level 4 (38419) Diagnoses Osteoarthritis of left knee M17.12 Lumbar radiculopathy M54.16 Effusion, left knee M25.462
== END 2022-09-10 13:05 | disposition home or self-care (01) ==
PROVIDERS: Visit Provider Orthopaedic Surgery
DX: M17.12 Unilateral primary osteoarthritis, left knee (principal); M25.462 Effusion, left knee; M54.16 Radiculopathy, lumbar region
CPT/HCPCS: 99204

== ENCOUNTER → 2022-09-10 12:34 | Outpatient (BNVA) | payer MEDICARE, SELFPAY | PROVIDERS: Visit Provider Orthopaedic Surgery | DX: M17.12 Unilateral primary osteoarthritis, left knee (principal); M54.16 Radiculopathy, lumbar region; M25.462 Effusion, left knee | CPT/HCPCS: 99202 ==

== ENCOUNTER 2022-09-11 12:35 | Outpatient (AMB) | payer MEDICARE, SELFPAY ==
--- NOTE | 2022-09-11 13:01 | MHC.OFFVIS ---
Intake Vital Signs 09/11/22 13:02 Height 5 ft 2 in Weight 194 lb 0.108 oz BMI 35.5 BP 140/70 H Blood Pressure Location Lt brachial Position Sitting Pulse 72 Intake Visit Reasons: 6M follow up Intake Note: 6 month f/u Reliner Required: No Allergies oxycodone [OXYCODONE] Allergy (Severe, Verified 09/11/22 13:14) N/V aspirin [ASPIRIN] Allergy (Intermediate, Verified 09/11/22 13:14) GI UPSET/BLEEDING latex [LATEX] Allergy (Intermediate, Verified 09/11/22 13:14) RASH NSAIDS (Non-Steroidal Anti-Inflamma [NSAIDS (NON-STEROIDAL ANTI-INFLAMMA] Allergy (Intermediate, Verified 09/11/22 13:14) GI UPSET/BLEEDING Medication List - Last Reconciled 09/11/22 by Amber Chaudhari, ADRIANA-C amoxicillin 1,000 mg PO BID carvedilol (Coreg) 3.125 mg PO BID 90 days glipizide 5 mg PO BID latanoprost 0.005% 1 drp ophthalmic (eye) DAILY levothyroxine 75 mcg PO .QOD levothyroxine 50 mcg PO .QOD lorazepam 0.5 mg PO TID PRN omeprazole 20 mg PO DAILY simvastatin 20 mg PO BEDTIME HPI 6M follow up HPI Details Merly is a 76-year-old male with past medical history of hypertension, chest discomfort, heart murmur presents for follow-up. Today she reports that she has been feeling well with no concerning symptoms. She no longer has chest discomfort. Her primary concern is of low back discomfort and will be starting physical therapy soon. She also has some discomfort from prior total knee replacement on the left. She tries to remain active in spite of her symptoms. Her breathing is comfortable, no PND, orthopnea or edema. No presyncope, syncope, falls. Taking medications as directed. [facility], [facility] Medical History Anxiety GI bleed Surgical History No pertinent past surgical history S/P tooth extraction Family History Father S/P CABG x 4 Stroke Heart attack Heart disease Mother Cancer Paternal Uncle Heart disease Diabetes Paternal Uncle Heart disease Daughter Multiple sclerosis Paternal Grandmother Diabetes Maternal Grandfather Stomach cancer Social History Alcohol intake: never Patient Tobacco Use Status: Former Tobacco user Review of Systems Const Details: Back discomfort, left knee discomfort All systems reviewed & are unremarkable except as noted in HPI and below ENT Reports dizziness Card Denies chest pain, Denies chest pain at rest, Denies chest pain with activity, Denies rapid heart rate, Denies pedal edema, Denies edema, Denies leg edema, Denies lightheadedness, Denies palpitations, Denies dyspnea, Denies dyspnea on exertion and Denies orthopnea Resp Denies cough, Denies dyspnea and Denies dyspnea on exertion GI Denies hematochezia and Denies change in stool character Musc Denies abnormal gait, Reports limited range of motion, Reports muscle cramps, Denies muscle weakness, Denies numbness, Denies radiating pain into limb, Denies stiffness and Denies tingling Neuro Denies abnormal gait, Reports dizziness, Denies numbness and Denies tingling Endo Denies palpitations Physical Exam Vital Signs: Last Vital Signs Pulse 72 09/11/22 13:02 BP 140/70 H 09/11/22 13:02 BMI result Body Mass Index 35.5 Const General: cooperative, healthy appearing, comfortable and no acute distress Orientation/consciousness: patient oriented x3 Neck Neck: Yes normal visual inspection Resp Effort & Inspection: normal respiratory effort Auscultation: clear to auscultation bilaterally, no crackles, no rales, no rhonchi and no wheezes Cardio Jugular venous distension: no JVD Rate: regular rate Rhythm: regular rhythm Heart sounds: S1 normal heart sound present, S2 normal heart sound present, no gallops, Murmur heart sound present ( 2/ 6 systolic murmur) and no rubs Peripheral pulses: Peripheral pulses 2+ throughout Neuro General: patient oriented x3 Extrem General: Yes normal to inspection Psych Appearance: grossly normal Mental Status: mental status grossly normal Speech and movement: Normal speech and movement present Office Procedures EKG Details: today, read by me, normal sinus rhythm, right bundle branch block, rate 72, QTC 470 millisecond [id number], Complete Assessment & Plan Assessment & Plan (1) Precordial chest pain: Code(s): R07.2 - Precordial pain Plan: cardiac evaluation initially for elevated troponins when in the ER for colitis and rectal bleeding. No prior history of heart disease. On prior visit she did report getting some random chest discomfort. She did undergo an exercise nuclear stress test on 07/05/2021 showing exercise 4-1/2 minutes with moderate shortness of breath, no chest discomfort, elevated blood pressure reading, no EKG changes of ischemia. Myocardial perfusion imaging was normal. An echocardiogram done 08/09/2021 showed EF 60-65%, mild increase in the LV wall thickness, mild calcification of the aortic valve, grade 1 diastolic dysfunction and no regional wall motion abnormalities. EKG done today showing sinus rhythm with right bundle branch block, rate 72. No reports of anginal sounding symptoms at this time. Will continue with risk factor modification including good blood pressure and cholesterol control. Hemoglobin A1c goal less than 7. Work on weight loss and increasing physical activity as tolerated. Signs and symptoms of true angina reviewed with her. Cardiology follow-up in 1 year, sooner if needed (2) Essential hypertension: Code(s): I10 - Essential (primary) hypertension Plan: initial blood pressure mildly elevated 140/70. Blood pressure recheck done by me 128/74. Meds reviewed and no changes made. Low-salt diet discussed (3) Right bundle branch block: Code(s): I45.10 - Unspecified right bundle-branch block Plan: noted on EKG. (4) Heart murmur: Code(s): R01.1 - Cardiac murmur, unspecified Plan: systolic murmur noted in the atrial position. Last echo reviewed showing mild calcification of the aortic valve, no aortic stenosis or regurgitation. Coding Level of Care Code Est Pt Level 3 (06125) Diagnoses Precordial chest pain R07.2 Essential hypertension I10 Right bundle branch block I45.10 Heart murmur R01.1 CPT Codes EKG - CPT: [id number], Complete ([id number]) Time Spent (min) 24 Comment Chart review, documentation, interview, assessment
[2022-09-11 13:02] VITALS: BP 140/70; PULSE 72; BMI 35.5
== END 2022-09-11 13:36 | disposition home or self-care (01) ==
PROVIDERS: Visit Provider Nurse Practitioner Family
DX: R07.2 Precordial pain (principal); I10 Essential (primary) hypertension; I45.10 Unspecified right bundle-branch block; R01.1 Cardiac murmur, unspecified
CPT/HCPCS: 93010; 99213

== ENCOUNTER → 2022-09-11 12:35 | Outpatient (BNVA) | payer MEDICARE, SELFPAY | PROVIDERS: Visit Provider Nurse Practitioner Family | DX: R07.2 Precordial pain (principal); I10 Essential (primary) hypertension; I45.10 Unspecified right bundle-branch block; R01.1 Cardiac murmur, unspecified | CPT/HCPCS: 93005; 99212 ==

== ENCOUNTER 2022-10-04 14:33 | Outpatient (REF) | payer MEDICARE, SELFPAY ==
--- NOTE | ~2022-10-04 | XR_ITS ---
EXAMINATION: XR BILATERAL HIPS WITH AP PELVIS CLINICAL INFORMATION: Pain in the left hip. COMPARISON: CT abdomen/pelvis 05/28/2022. TECHNIQUE: AP view of the pelvis and single views of each hip were obtained. FINDINGS: No acute fractures or subluxation. Moderate joint space narrowing with subcortical sclerosis in both hips. SI joints are symmetric. Pubic symphysis is maintained. Mild bony productive changes are noted in the bilateral acetabula and femoral trochanters. Small pelvic phleboliths and scattered vascular calcifications. XR/XR hip BI w PEL1V IMPRESSION: 1. No acute fractures or subluxation. 2. 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
== END 2022-10-04 14:34 | disposition home or self-care (01) ==
LOC: HO.XRAY 14:33
PROVIDERS: PCP Internal Medicine; Visit Provider Nurse Practitioner Family
DX: M25.552 Pain in left hip (principal); M53.3 Sacrococcygeal disorders, not elsewhere classified; M47.816 Spondylosis without myelopathy or radiculopathy, lumbar region; M17.12 Unilateral primary osteoarthritis, left knee; M25.561 Pain in right knee
CPT/HCPCS: 73521; 99202

== ENCOUNTER 2022-10-04 14:33 | Outpatient (AMB) | payer MEDICARE, SELFPAY ==
--- NOTE | 2022-10-04 14:45 | MHC.OFFVIS ---
Intake Vital Signs 10/04/22 14:55 10/04/22 15:30 Height 5 ft 2 in Weight 195 lb 8 oz BMI 35.8 BP 192/88 H 180/74 H Blood Pressure Location Rt brachial Lt brachial Position Sitting Sitting Respiration 16 Pulse 72 70 Pulse Source Pulse Oximeter Pulse Oximeter Pulse Oximetry (%) 99 97 Oxygen Delivery Method Room Air Room Air Intake Visit Reasons: Back & Knee Pain Allergies oxycodone [OXYCODONE] Allergy (Severe, Verified 10/04/22 14:50) N/V aspirin [ASPIRIN] Allergy (Intermediate, Verified 10/04/22 14:50) GI UPSET/BLEEDING latex [LATEX] Allergy (Intermediate, Verified 10/04/22 14:50) RASH NSAIDS (Non-Steroidal Anti-Inflamma [NSAIDS (NON-STEROIDAL ANTI-INFLAMMA] Allergy (Intermediate, Verified 10/04/22 14:50) GI UPSET/BLEEDING HPI Back & Knee Pain HPI Details Patient is a pleasant 77 years old female presents today for initial evaluation of significant lower back pain, left hip and sharp left knee pain that affects her walking and regular movements. Denies any recent trauma, injury or falls. Reports slip and fall injury in 2007 which trigger her current pain generators from which left anterior knee pain in medial aspect is most concerning. Patient was seen in the ED on 07/24/22 for knee pain and swelling with knee aspiration without significant pain relief. Her back pain is mainly axial and worsened with bending or flexion but not with extension. SLR testing is negative bilaterally but increases left knee pain. Reports short walking distance tolerance due to left groin pain with walking or weight bearing. She also has localized tenderness in the projection of both sacroiliac joints, worse on the left. Denies pain with sitting, resting or sleeping. Pain affects her daily activities, functions and quality of life. She has started exercise class at [employer] called [employer] with some improvement in her range of motions and is working on strengthening. Patient avoids NSAIDs due to history of GI upset and bleeding. Denies any fever, chills, weight loss, abdominal pain, numbness and tingling, bladder or bowel incontinence or saddle anesthesia. Location Lower back pain, bilateral knee pain, L>R, left hip pain Duration Chronic bilateral knee- 5 months, back- several years Characteristics of symptom or complaint Aching, sharp, shooting, heavy, radiating, squeezing, sore, hurting Aggravating or associated factors Weight bearing, walking, standing, climbing stairs Relieving factors Rest, sitting, laying down, Tylenol Treatment PT- no improvement, left knee aspiration 07/24 [facility] Medical History Anxiety GI bleed Surgical History No pertinent past surgical history S/P tooth extraction Family History Father S/P CABG x 4 Stroke Heart attack Heart disease Mother Cancer Paternal Uncle Heart disease Diabetes Paternal Uncle Heart disease Daughter Multiple sclerosis Paternal Grandmother Diabetes Maternal Grandfather Stomach cancer Social History Alcohol intake: never Patient Tobacco Use Status: Former Tobacco user Review of Systems Const All systems reviewed & are unremarkable except as noted in HPI and below Physical Exam Vital Signs: Last Vital Signs Pulse 70 10/04/22 15:30 Resp 16 10/04/22 15:30 BP 180/74 H 10/04/22 15:30 Pulse Ox 97 10/04/22 15:30 Oxygen Delivery Method Room Air 10/04/22 15:30 BMI result Body Mass Index 35.8 General: Appears afebrile. Alert and oriented. Mood and affect appropriate. Follows and participates in conversation appropriately. Respiratory effort is unlabored. No cough. No nasal discharge. Able to transition from sit to stand unassisted. Back/Spine/Pelvis Other: Patient is able to walk and stand on heels and tip toes with moderate difficulty on the left due to left hip and knee pain. Antalgic gait, with mild limping. Can flex forward to 75-80 degrees experiencing lumbar pain in lower back. Mild pain with lumbar extension. Demonstrates 5/5 strength of quadriceps bilaterally as well as flexion/dorsiflexion of bilateral feet against resistance. 2+ pedal pulses bilaterally. Seated straight leg rise with dorsiflexion negative bilaterally but causes increase in left knee pain. Patellar reflexes not done due to significant pain and +1 achilles reflexes bilaterally. Moderate verbosities and varicose veins left lower leg with non pitting edema left ankle. Facet loading test positive bilaterally. Emmy sign positive on the left, limited Too?s, Pelvic compression and Stinchfield tests are positive bilaterally, Left>Right. Mild to moderate groin pain with left I/E hip rotations. Valsalva maneuver negative. Back: back tenderness Cervical Spine: cervical ROM normal and No Cervical spine tenderness Thoracic/Lumbar Spine: thoracic and lumbar spine normal to inspection, No Thoracic/lumbar spine scar(s), Lasegue's sign negative, straight leg raise negative bilaterally, pain with thoraco-lumbar ROM, paraspinal muscle tenderness, No thoracic spinal tenderness and No lumbar spinal tenderness Pelvis: buttock tenderness on the left and no sciatic notch tenderness Sacroiliac joints: bilaterally tender to palpation Extrem General: Yes no calf tenderness and Yes edema (left ankle, +1) Right lower extremity: hip/thigh (Limited ROM due to pain) Details: normal to inspection and tenderness Location: of the hip Location: laterally; no swelling and knee (Limited ROM and pain with flexion, +Crepitus) Details: tenderness Location: of the patella, of the medial joint line and of the lateral joint line and swelling Location: of the patella; no ecchymosis and no unusual warmth Results Reviewed Results Reviewed: XR KNEE, LEFT 07/24/22 CLINICAL INFORMATION: Pain COMPARISON: Previous x-ray May 2022 FINDINGS: Bone alignment is normal. No fracture or dislocation. Osteopenia. Arthritis at the medial femoral tibial and patellofemoral joints. Osteophyte at the quadriceps tendon insertion to the patella. Large joint effusion. IMPRESSION: Arthritis and large joint effusion. XR LUMBOSACRAL SPINE 05/31/22 CLINICAL INFORMATION: Low back pain, rule out degenerative disease COMPARISON: Lumbar spine x-ray on 08/16/2020 FINDINGS: The lumbar spine maintains normal alignment. Vertebral body heights are maintained. There is multilevel loss of intervertebral disc space with endplate degenerative changes. Facet arthropathy in the lower lumbar spine. IMPRESSION: Mild degenerative disease of the lumbar spine. Assessment & Plan Assessment & Plan (1) Sacroiliac joint pain: Code(s): M53.3 - Sacrococcygeal disorders, not elsewhere classified (2) Left hip pain: Code(s): M25.552 - Pain in left hip (3) Lumbar spondylosis: Code(s): M47.816 - Spondylosis without myelopathy or radiculopathy, lumbar region (4) Osteoarthritis of left knee: Code(s): M17.12 - Unilateral primary osteoarthritis, left knee (5) Left knee pain: Code(s): M25.562 - Pain in left knee Plan 1. Will obtain pelvic and hip imaging to assess for degree of arthritis. If significant degenerative OA changes, will plan for intra-articular left hip steroid injection. If normal imaging, will proceed with lumbar spine MRI for neural integrity and compression. Briefly discussed treatments for low back pain, SIJ, and left hip pain. Informational brochures provided. 2. Continue PT class at [facility] as tolerated. Follow up with Orthopedic provider regarding ongoing left knee pain. 4. Scripts provided for lidocaine and diclofenac gel. All questions and concerns have been answered and patient agreed with the plan. Follow up for xray review and sooner if needed. Orders: Orders XR hip BI w PEL1V 10/04/22 M25.552 - Pain in left hip, M47.816 - Spondylosis without myelopathy or radiculopathy, lumbar region, M53.3 - Sacrococcygeal disorders, not elsewhere classified Medications: New lidocaine 5% 2 patches topical DAILY 30 days PRN 60 ea 1RF pain M17.12 - Unilateral primary osteoarthritis, left knee, M25.562 - Pain in left knee, M47.816 - Spondylosis without myelopathy or radiculopathy, lumbar region diclofenac sodium 1% (Arthritis Pain (diclofenac)) 4 grams topical QID 30 days 100 grams 0RF pain M25.562 - Pain in left knee, M47.816 - Spondylosis without myelopathy or radiculopathy, lumbar region Coding Level of Care Code New Pt Level 4 (63880) Diagnoses Sacroiliac joint pain M53.3 Left hip pain M25.552 Lumbar spondylosis M47.816 Osteoarthritis of left knee M17.12 Left knee pain M25.562
[2022-10-04 14:55] VITALS: BP 192/88; PULSE 72; O2SAT 99; BMI 35.8
[2022-10-04 15:30] VITALS: BP 180/74; PULSE 70; RESP 16; O2SAT 97
== END 2022-10-04 15:32 | disposition home or self-care (01) ==
PROVIDERS: PCP Internal Medicine; Visit Provider Nurse Practitioner Family
DX: M53.3 Sacrococcygeal disorders, not elsewhere classified (principal); M25.552 Pain in left hip; M47.816 Spondylosis without myelopathy or radiculopathy, lumbar region; M17.12 Unilateral primary osteoarthritis, left knee
CPT/HCPCS: 99203

== ENCOUNTER 2022-10-27 10:10 | Emergency (ER) | payer MEDICARE, SELFPAY ==
--- NOTE | ~2022-10-27 | CT_ITS ---
EXAMINATION: CT HEAD WITHOUT CONTRAST CLINICAL INFORMATION: Gait disturbance, right hand tremor COMPARISON: None available. TECHNIQUE: Contiguous axial imaging was performed from the skull base to vertex without intravenous administration of contrast. This CT examination was performed using dose optimization techniques as appropriate, variously including the following: *Automated exposure control *Adjustment of mA and/or kV according to patient size (this includes techniques or standardized protocols for targeted exams where dose is matched to indication/reason for exam; i.e. extremities or head) *Use of iterative reconstruction technique DLP: 627 mGy-cm FINDINGS: There is no evidence of acute intracranial hemorrhage or edematous territorial infarction. No abnormal mass effect or midline shift is seen. [place] to white matter differentiation is grossly preserved. No abnormal extra-axial fluid collections are identified. The ventricles are normal in size. Patchy periventricular and deep white matter hypodensities suggestive of chronic microangiopathic changes. No acute calvarial fracture.. Mild ethmoid sinus mucosal thickening. Paranasal sinuses otherwise and mastoid air cells are well-aerated. CT/CT head/brain wo IV con IMPRESSION: No CT evidence of acute intracranial hemorrhage or edematous large vessel territorial infarction. Etiology of the patient's symptoms has not been determined. Further evaluation with CTA or MRI as clinically warranted.
[2022-10-27 10:11] VITALS: BP 186/78; PULSE 83; RESP 20; TEMP 37.1; O2SAT 96; BMI 35.8
[2022-10-27 10:44] VITALS: BP 164/62; PULSE 72; RESP 12; TEMP 37.2; O2SAT 95
--- NOTE | 2022-10-27 10:47 | ECG_ITS ---
Test Reason : dizziness Blood Pressure : / mmHG Vent. Rate : 073 BPM Atrial Rate : 073 BPM P-R Int : 140 ms QRS Dur : 118 ms QT Int : 444 ms P-R-T Axes : 058 022 003 degrees QTc Int : 489 ms Normal sinus rhythm Possible Left atrial enlargement Incomplete right bundle branch block Borderline ECG When compared with ECG of 02-JUN-2021 11:41, Incomplete right bundle branch block is now Present T wave inversion now evident in Inferior leads Referred By: Sandra Caballero Electronically Signed By:JAMEY GODINEZ
--- NOTE | 2022-10-27 11:09 | ED.GENADULT ---
HPI - General Adult General Chief complaint: Dizziness Stated complaint: medication reaction Time Seen by Provider: 10/27/22 10:34 Source: patient and old records reviewed Mode of arrival: ambulatory Limitations: no limitations History of Present Illness HPI narrative: 77 yo female with history of anxiety on ativan, HTN, left knee OA, RBBB, HFpEF, vertigo, history of tonsillar cancer s/p radiation and chemo, 8 years in remission who presents to the ER for evaluation of lightheadedness that started yesterday when she was in [place] on a bus tour trip. She states she was having difficulty focusing, difficulty with depth perception when walking down stairs. She thought she was having her usual vertigo episode. She states she also has been having new right hand tremor x6 weeks and worsening left knee pain. She has been more anxious than usual. She has been taking ativan BID. She denies current dizziness, lightheadedness, weakness, numbness, tingling, N/V/D, chest pain, SOB or headache. She reports increased fatgiue. MD complaint: multiple complaints Onset (ago): day(s) Severity: moderate Pain Consistency: intermittent Relieving factors: none Exacerbating factors: none Associated symptoms: confusion, loss of appetite and malaise Treatments prior to arrival: none Related Data Home Medications Medication Instructions Recorded Confirmed latanoprost 0.005 % eye drops 1 drp ophthalmic (eye) DAILY 06/12/21 09/11/22 levothyroxine 50 mcg tablet 50 mcg PO .QOD 06/12/21 09/11/22 levothyroxine 75 mcg tablet 75 mcg PO .QOD 06/12/21 09/11/22 lorazepam 0.5 mg tablet 0.5 mg PO TID PRN 06/12/21 09/11/22 simvastatin 20 mg tablet 20 mg PO BEDTIME 06/12/21 09/11/22 omeprazole 20 mg capsule,delayed 20 mg PO DAILY 10/12/21 09/11/22 release glipizide 5 mg tablet 5 mg PO BID 09/10/22 09/11/22 omeprazole 20 mg tablet,delayed 20 mg PO DAILY 10/04/22 release Previous Rx's Medication Instructions Recorded carvedilol 3.125 mg tablet (Coreg) 3.125 mg PO BID 90 days #180 tabs 07/25/22 diclofenac sodium 1 % topical gel 4 g topical QID pain 30 days #100 10/04/22 (Arthritis Pain (diclofenac)) grams lidocaine 5 % topical patch 2 patch topical DAILY PRN pain 30 10/04/22 days #60 ea cefuroxime axetil 250 mg tablet 250 mg PO BID 7 days #14 tabs 10/27/22 Allergies Allergy/AdvReac Type Severity Reaction Status Date / Time oxycodone [OXYCODONE] Allergy Severe N/V Verified 10/04/22 14:50 aspirin [ASPIRIN] Allergy Intermediate GI Verified 10/04/22 14:50 UPSET/BLEEDING latex [LATEX] Allergy Intermediate RASH Verified 10/04/22 14:50 NSAIDS (Non-Steroidal Allergy Intermediate GI Verified 10/04/22 14:50 Anti-Inflamma UPSET/BLEEDING [NSAIDS (NON-STEROIDAL ANTI-INFLAMMA] Review of Systems Review of Systems: Yes all other systems are reviewed and are negative [facility] Past Medical History Medical History Anxiety GI bleed Surgical History No pertinent past surgical history S/P tooth extraction Family History Family History Father S/P CABG x 4 Stroke Heart attack Heart disease Mother Cancer Paternal Uncle Heart disease Diabetes Paternal Uncle Heart disease Daughter Multiple sclerosis Paternal Grandmother Diabetes Maternal Grandfather Stomach cancer Social History Social History Alcohol intake: current Alcohol intake frequency: holidays/special occasions only Patient Tobacco Use Status: Former Tobacco user Smoked in Last 30 Days: No Use of substances other than those prescribed or required for medical reasons: No Advance Directives: No Advance Directives Information Provided: Yes Physical Exam ED Vital Signs: Vital Signs - 24 hr 10/27/22 10:11 10/27/22 10:44 10/27/22 11:36 Temperature 98.8 F 98.9 F Pulse Rate 83 72 69 Respiratory Rate 20 12 Blood Pressure 186/78 H 164/62 H 165/71 H Pulse Oximetry 96 95 Oxygen Delivery Method Room Air Room Air 10/27/22 11:36 10/27/22 11:37 10/27/22 12:11 Temperature Pulse Rate 72 77 73 Respiratory Rate 15 Blood Pressure 171/72 H 165/78 H 172/75 H Pulse Oximetry 95 Oxygen Delivery Method Room Air BMI result Body Mass Index 35.8 Appearance: Alert. Oriented X3. No acute distress. Head: normocephalic, atraumatic. Eyes: Pupils equal, round and reactive to light. ENT: Pharynx normal. No tonsillar swelling or exudate. Neck: Normal inspection. Neck supple. CVS: Normal heart rate and rhythm. +systolic murmus in the right sternal border. Pulses normal. Respiratory: No respiratory distress. Breath sounds normal. Abdomen: Soft and nontender. +BS x4 Skin: Skin warm and dry. Normal skin color. Normal skin turgor. No rashes. Extremities: No lower extremity edema. No joint swelling. Neuro/psych: Oriented X 3. No motor deficit. No sensory deficit. CN II-XII intact. Normal speech and cognition. Normal finger to nose and heel to phillips bilaterally. Steady gait. NIH 0. Medications Administered Discontinued Medications Generic Name Dose Route Start Last Admin Trade Name Freq PRN Reason Stop Dose Admin Lorazepam 0.5 mg 10/27/22 11:06 10/27/22 11:20 Lorazepam 0.5 Mg Tablet PO 10/27/22 11:07 0.5 mg ONCE ONE Administration Medical Decision Making Medical Decision Making MDM Narrative: 77 yo female with history of anxiety on ativan, HTN, left knee OA, RBBB, HFpEF, vertigo, history of tonsillar cancer s/p radiation and chemo, 8 years in remission who presents to the ER for evaluation of lightheadedness that started yesterday when she was in [place] on a bus tour trip. She reports feels different than her usual vertigo. She was also having other nonspecific symptoms including feeling ?fuzzy,? depth perception issues, intermittent right hand tremor for the last several weeks, along with increased anxiety. On arrival to the ER patient is hypertensive which she reports is her baseline. She is anxious. Her neurologic exam is nonfocal. No current lightheadedness. Orthostatic vital signs are negative. Her lab workup today was unremarkable. CT scan of her head was done and was unremarkable as well. Her urinalysis did show evidence of acute UTI. She is steady on her feet. At this time comfortable discharge home with treatment for UTI and outpatient follow-up with her PCP who she sees in a couple of weeks. Return precautions were discussed. Comfortable discharge home Differential Diagnosis Differential Diagnoses: The differential diagnosis associated with the presentation includes Anxiety, dehydration, anemia, vertigo, cardiac arrhythmia, palpitations, UTI, electrolyte abnormality, intention tremor, less likely TIA or stroke Admission/Observation Consideration of admission/observation: Escalation of care including admission/observation considered Actually female with multiple complaints including lightheadedness and gait disturbance. Neuro exam was nonfocal with unremarkable imaging of her head. No emergent need for MRI today Lab Data MDM Lab Attestation statement: I reviewed the patient's lab results. no leukocytosis, normal H/H, no major metabolic derrangement 10/27/22 11:17 10/27/22 11:17 Labs: Lab Results 10/27/22 10/27/22 10/27/22 Range/Units 11:17 11:17 11:17 WBC 7.3 (4.8-10.8) X10*3/uL RBC 4.38 (4.20-5.50) X10*6/uL Hgb 13.6 (12.0-16.0) g/dl Hct 40.7 (37.0-47.0) % MCV 92.9 (80.0-98.0) fL MCH 31.1 (27.0-33.0) pg MCHC 33.4 (31.0-35.0) g/dl RDW 12.7 (11.0-16.0) % Plt Count 223 (160-400) X10*3/uL MPV 10.2 (9.4-12.3) fL Immature Gran % (Auto) 0.3 (0.0-0.4) % Neut % (Auto) 69.1 (45-73) % Lymph % (Auto) 18.9 L (20-40) % [place] % (Auto) 8.6 (2-11) % Eos % (Auto) 2.6 (0-4) % Baso % (Auto) 0.5 (0-2) % Lymph # (Auto) 1.4 (1.2-4.9) X10*3/uL [place] # (Auto) 0.6 (0.1-1.2) X10*3/uL Eos # (Auto) 0.2 (0.0-0.4) X10*3/uL Baso # (Auto) 0.0 (0.0-0.2) X10*3/uL Abs Immat Gran (auto) 0.02 (0.00-0.03) X10*3/uL Absolute Neuts (auto) 5.1 (2.0-8.3) x10*3/uL Absolute Nucleated RBC 0.000 (0.0-0.012) X10*3/uL Nucleated RBC % (auto) 0.0 (0.0-0.2) /100WBC Sodium 142 (135-145) mmol/L Potassium 3.8 (3.3-5.1) mmol/L Chloride 110 H (96-108) mmol/L Carbon Dioxide 23 (22-29) mmol/L Anion Gap 13 (12-20) BUN 8 L (9-16) mg/dL Creatinine 0.77 (0.5-1.4) mg/dL Estim Creat Clear Calc 63.3 Estimated GFR > 60 Random Glucose 149 H (60-115) mg/dL Calcium 9.9 (8.4-10.2) mg/dL Magnesium 1.9 (1.6-2.6) mg/dL Total Bilirubin 1.2 H (0.0-1.0) mg/dL Direct Bilirubin 0.4 (0.0-0.5) mg/dL AST 67 H (5-31) U/L ALT 27 (0-31) U/L Alkaline Phosphatase 75 (39-117) U/L B-Natriuretic Peptide 47 (<100) pg/mL Total Protein 6.9 (6.5-8.0) g/dL Albumin 4.0 (3.5-5.0) g/dL Urine Color Urine Appearance Urine pH (5.0-9.0) Ur Specific [place] (1.005-1.025) Urine Protein (Neg-Trace) mg/dL Urine Glucose (UA) (Negative) mg/dL Urine Ketones (Negative) mg/dL Urine Blood (Negative) Urine Nitrite (Negative) Ur Leukocyte Esterase (Negative) Urine RBC (0-2) /HPF Urine WBC (0-5) /HPF Ur Squamous Epith Cells (0-2) /HPF Urine Bacteria (None Seen) Hyaline Casts (0-2) /LPF 10/27/22 Range/Units 12:28 WBC (4.8-10.8) X10*3/uL RBC (4.20-5.50) X10*6/uL Hgb (12.0-16.0) g/dl Hct (37.0-47.0) % MCV (80.0-98.0) fL MCH (27.0-33.0) pg MCHC (31.0-35.0) g/dl RDW (11.0-16.0) % Plt Count (160-400) X10*3/uL MPV (9.4-12.3) fL Immature Gran % (Auto) (0.0-0.4) % Neut % (Auto) (45-73) % Lymph % (Auto) (20-40) % [place] % (Auto) (2-11) % Eos % (Auto) (0-4) % Baso % (Auto) (0-2) % Lymph # (Auto) (1.2-4.9) X10*3/uL [place] # (Auto) (0.1-1.2) X10*3/uL Eos # (Auto) (0.0-0.4) X10*3/uL Baso # (Auto) (0.0-0.2) X10*3/uL Abs Immat Gran (auto) (0.00-0.03) X10*3/uL Absolute Neuts (auto) (2.0-8.3) x10*3/uL Absolute Nucleated RBC (0.0-0.012) X10*3/uL Nucleated RBC % (auto) (0.0-0.2) /100WBC Sodium (135-145) mmol/L Potassium (3.3-5.1) mmol/L Chloride (96-108) mmol/L Carbon Dioxide (22-29) mmol/L Anion Gap (12-20) BUN (9-16) mg/dL Creatinine (0.5-1.4) mg/dL Estim Creat Clear Calc Estimated GFR Random Glucose (60-115) mg/dL Calcium (8.4-10.2) mg/dL Magnesium (1.6-2.6) mg/dL Total Bilirubin (0.0-1.0) mg/dL Direct Bilirubin (0.0-0.5) mg/dL AST (5-31) U/L ALT (0-31) U/L Alkaline Phosphatase (39-117) U/L B-Natriuretic Peptide (<100) pg/mL Total Protein (6.5-8.0) g/dL Albumin (3.5-5.0) g/dL Urine Color Yellow Urine Appearance Clear Urine pH 6.5 (5.0-9.0) Ur Specific [place] 1.010 (1.005-1.025) Urine Protein Negative (Neg-Trace) mg/dL Urine Glucose (UA) Negative (Negative) mg/dL Urine Ketones Negative (Negative) mg/dL Urine Blood Negative (Negative) Urine Nitrite Negative (Negative) Ur Leukocyte Esterase Moderate (2+) H (Negative) Urine RBC 0-2 (0-2) /HPF Urine WBC 11-20 H (0-5) /HPF Ur Squamous Epith Cells 0-2 (0-2) /HPF Urine Bacteria None Seen (None Seen) Hyaline Casts 0-2 (0-2) /LPF Independent Interpretation I performed an independent interpretation of an: EKG and CT Scan Interpretation: EKG with normal sinus rhythm, HR 73 bpm, incomplete RBBB (old), t-wave inversions in lead III and V1 only CT head without acute bleed or edema, agree w/ radiology read Radiology Impression Discussion of test interpretation with radiology: I have reviewed the radiologist's reading. Radiologist Impression: EXAMINATION: CT HEAD WITHOUT CONTRAST CLINICAL INFORMATION: Gait disturbance, right hand tremor? COMPARISON: None available. TECHNIQUE: Contiguous axial imaging was performed from the skull base to vertex without intravenous administration of contrast. This CT examination was performed using dose optimization techniques as appropriate, variously including the following: *Automated exposure control *Adjustment of mA and/or kV according to patient size (this includes techniques or standardized protocols for targeted exams where dose is matched to indication/reason for exam; i.e. extremities or head) *Use of iterative reconstruction technique DLP: 627 mGy-cm FINDINGS: There is no evidence of acute intracranial hemorrhage or edematous territorial infarction. No abnormal mass effect or midline shift is seen. [place] to white matter differentiation is grossly preserved. No abnormal extra-axial fluid collections are identified. The ventricles are normal in size. Patchy periventricular and deep white matter hypodensities suggestive of chronic microangiopathic changes. No acute calvarial fracture.. Mild ethmoid sinus mucosal thickening. Paranasal sinuses otherwise and mastoid air cells are well-aerated. ? CT/CT head/brain wo IV con IMPRESSION: No CT evidence of acute intracranial hemorrhage or edematous large vessel territorial infarction. ? Etiology of the patient's symptoms has not been determined. Further evaluation with CTA or MRI as clinically warranted. Independent Historian Clinical information obtained from an independent historian. History obtained from or confirmed by: Friend External Record Review External record reviewed: Office record, Outpatient record, Prior outpatient labs and Prior outpatient radiology Tests considered The following testing was considered but not selected: MRI considered however neuro exam is nonfocal, no emergent need today Prescription Management I considered prescription management with: Antibiotic Chronic Conditions Patient?s care impacted by: Hypertension and Other (Anxiolytics) Critical Care Time Critical Care Time Critical Care Time: No Discharge Plan Discharge Clinical Impression: Acute UTI, Anxiety Patient Disposition: Home, Self-Care Instructions: Urinary Tract Infection in Older Adults (ED) Additional Instructions: Your lab workup today was unremarkable. Your CT scan did not show any acute findings in the brain. Your urine test did show evidence of a urinary tract infection. Take the prescribed antibiotics as directed, complete the entire course and do not miss any doses Rest and drink plenty of fluids. Follow up with your doctor. If you develop new or worsening symptoms call 911 or come back to the ER for further evaluation. Prescriptions: New cefuroxime axetil 250 mg tablet 250 mg PO BID 7 Days Qty: 14 0RF No Action carvedilol [Coreg] 3.125 mg tablet 3.125 mg PO BID 90 Days Qty: 180 3RF Rx Instructions: must administer with a meal/food simvastatin 20 mg tablet 20 mg PO BEDTIME lorazepam 0.5 mg tablet 0.5 mg PO TID PRN latanoprost 0.005 % drops 1 drp ophthalmic (eye) DAILY levothyroxine 50 mcg tablet 50 mcg PO .QOD levothyroxine 75 mcg tablet 75 mcg PO .QOD omeprazole 20 mg capsule,delayed release(DR/EC) 20 mg PO DAILY glipizide 5 mg tablet 5 mg PO BID omeprazole 20 mg tablet,delayed release (DR/EC) 20 mg PO DAILY lidocaine 5 % adhesive patch,medicated 2 patch topical DAILY PRN (Reason: pain) 30 Days Qty: 60 1RF diclofenac sodium [Arthritis Pain (diclofenac)] 1 % gel 4 g topical QID 30 Days Qty: 100 0RF Referrals: Rodolfo Stein MD [Primary Care Provider] - Interventions: ED Discharge Assessment Last Done: 10/27/22 13:36 Discharge Date/Time: 10/27/22 13:37
[2022-10-27] MEDS: LORazepam 0.5 MG TABLET PO (11:20)
--- NOTE | 2022-10-27 11:21 | PC.NURSE ---
pt medicated per MAY. resting quietly, report feeling disoriented and foggy denies dizziness at this time.
[2022-10-27 11:22] LABS: MANUAL DIFF FLAG NO
[2022-10-27 11:23] LABS: Basophils Percent Auto 0.5 % (0-2); Eosinophils Absolute Auto 0.2 X10*3/uL (0.0-0.4); Eosinophils Percent Auto 2.6 % (0-4); Hematocrit 40.7 % (37.0-47.0); Hemoglobin 13.6 g/dl (12.0-16.0); Imm Gran Abs Auto 0.02 X10*3/uL (0.00-0.03); Imm Gran Pct Auto 0.3 % (0.0-0.4); Lymphocytes Absolute Auto 1.4 X10*3/uL (1.2-4.9); Lymphocytes Percent Auto 18.9 % (20-40); Mean Corpuscular HGB Conc 33.4 g/dl (31.0-35.0); Mean Corpuscular Hemoglobin 31.1 pg (27.0-33.0); Mean Corpuscular Volume 92.9 fL (80.0-98.0); Mean Platelet Volume 10.2 fL (9.4-12.3); Monocytes Absolute Auto 0.6 X10*3/uL (0.1-1.2); Monocytes Percent Auto 8.6 % (2-11); Neutrophils Absolute Auto 5.1 x10*3/uL (2.0-8.3); Neutrophils Percent Auto 69.1 % (45-73); Platelet Count 223 X10*3/uL (160-400); Red Blood Count 4.38 X10*6/uL (4.20-5.50); Red Cell Distribution Width 12.7 % (11.0-16.0); White Blood Count 7.3 X10*3/uL (4.8-10.8)
[2022-10-27 11:36] VITALS: BP 165/71; BP 171/72; PULSE 69; PULSE 72
[2022-10-27 11:37] VITALS: BP 165/78; PULSE 77
[2022-10-27 11:40] LABS: Alanine Aminotransferase 27 U/L (0-31); Alkaline Phosphatase 75 U/L (39-117); Anion Gap 13 (12-20); Aspartate Amino Transferase 67 U/L (5-31); Bilirubin Direct 0.4 mg/dL (0.0-0.5); Bilirubin Total 1.2 mg/dL (0.0-1.0); Blood Urea Nitrogen 8 mg/dL (9-16); Calcium 9.9 mg/dL (8.4-10.2); Carbon Dioxide 23 mmol/L (22-29); Chloride 110 mmol/L (96-108); Creatinine Clr Calc Pharmacy 63.3; Estimated Glomerular Filt Rate > 60; Glucose Random 149 mg/dL (60-115); Magnesium 1.9 mg/dL (1.6-2.6); Potassium 3.8 mmol/L (3.3-5.1); Sodium 142 mmol/L (135-145); Total Protein 6.9 g/dL (6.5-8.0)
[2022-10-27 11:45] LABS: B Type Natriuretic Peptide 47 pg/mL (<100)
[2022-10-27 12:11] VITALS: BP 172/75; PULSE 73; RESP 15; O2SAT 95
[2022-10-27 12:44] LABS: Appearance Urine Clear; Color Urine Yellow; Glucose Urine UA Negative (Negative); Leukocyte Esterase Urine Moderate (2+) (Negative); Nitrite Urine Negative (Negative); PH 6.5 (5.0-9.0); UMIC TRIGGER UACC YES; Urine Blood Negative (Negative); Urine Ketones Negative (Negative); Urine Protein Negative (Neg-Trace)
[2022-10-27 12:54] LABS: Bacteria Urine None Seen (None Seen); Hyaline Casts Urine 0-2 /LPF (0-2); RBC Urine 0-2 /HPF (0-2); Squamous Epithelial Cell Urine 0-2 /HPF (0-2); UACC Culture Trigger YES
== END 2022-10-27 13:37 | disposition home or self-care (01) ==
PROVIDERS: Physician Assistant; Emergency Provider Student in an Organized Health Care Education/Training Program; PCP Internal Medicine
DX: N39.0 Urinary tract infection, site not specified (principal); F41.9 Anxiety disorder, unspecified; R42 Dizziness and giddiness; I10 Essential (primary) hypertension; I45.10 Unspecified right bundle-branch block; Z79.899 Other long term (current) drug therapy; Z87.891 Personal history of nicotine dependence
CPT/HCPCS: 36415; 70450; 80048; 80076; 81001; 83735; 83880; 85025; 87086; 93005; 99284; 99285

== ENCOUNTER 2023-02-21 13:22 | Outpatient (AMB) | payer MEDICARE, SELFPAY ==
--- NOTE | 2023-02-21 13:25 | MHC.OFFVIS ---
Intake Vital Signs 02/21/23 13:31 Height 5 ft 2 in Weight 200 lb BMI 36.6 BP 144/64 H Blood Pressure Location Lt brachial Position Sitting Respiration 14 Pulse 88 Pulse Source Pulse Oximeter Pulse Oximetry (%) 96 Oxygen Delivery Method Room Air Intake Visit Reasons: Follow Up/Back Pain Intake Note: Patient comes in for back and hip pain. Reports pain level 10/10. Allergies oxycodone [OXYCODONE] Allergy (Severe, Verified 02/21/23 13:30) N/V aspirin [ASPIRIN] Allergy (Intermediate, Verified 02/21/23 13:30) GI UPSET/BLEEDING latex [LATEX] Allergy (Intermediate, Verified 02/21/23 13:30) RASH NSAIDS (Non-Steroidal Anti-Inflamma [NSAIDS (NON-STEROIDAL ANTI-INFLAMMA] Allergy (Intermediate, Verified 02/21/23 13:30) GI UPSET/BLEEDING HPI HPI Comments History of Present Illness Details Patient presents today for follow-up for chronic low back pain and severe left hip pain. She attended physical therapy was at [facility] with minimal improvement in her symptoms. She has been managing her pain with Tylenol and lidocaine patches with continued symptoms. Most recent hip x-ray showed moderate degenerative osteoarthritis in both hips. She also has significant low back pain that radiates into her left buttock and lateral hip consistent with sacroiliac joint pain and facetogenic pain components. Patient is interested and therapeutic hip intra-articular steroid injection. She reports A1C=5.7 on 11/2022. Denies any recent cough, cold, infection, fever, bladder or bowel dysfunction, saddle anesthesia, or other significant changes in medical history since last office visit. PRIOR: Patient is a pleasant 77 years old female presents today for initial evaluation of significant lower back pain, left hip and sharp left knee pain that affects her walking and regular movements. Denies any recent trauma, injury or falls. Reports slip and fall injury in 2007 which trigger her current pain generators from which left anterior knee pain in medial aspect is most concerning. Patient was seen in the ED on 07/24/22 for knee pain and swelling with knee aspiration without significant pain relief. Her back pain is mainly axial and worsened with bending or flexion but not with extension. SLR testing is negative bilaterally but increases left knee pain. Reports short walking distance tolerance due to left groin pain with walking or weight bearing. She also has localized tenderness in the projection of both sacroiliac joints, worse on the left. Denies pain with sitting, resting or sleeping. Pain affects her daily activities, functions and quality of life. She has started exercise class at [facility] called [employer] [facility] [employer] with some improvement in her range of motions and is working on strengthening. Patient avoids NSAIDs due to history of GI upset and bleeding. Denies any fever, chills, weight loss, abdominal pain, numbness and tingling, bladder or bowel incontinence or saddle anesthesia. Location Lower back pain, bilateral knee pain, L>R, left hip pain Duration Chronic bilateral knee- 5 months, back- several years Characteristics of symptom or complaint Aching, sharp, shooting, heavy, radiating, squeezing, sore, hurting Aggravating or associated factors Weight bearing, walking, standing, climbing stairs Relieving factors Rest, sitting, laying down, Tylenol Treatment PT- no improvement, left knee aspiration 07/24 PFSH Medical History Anxiety GI bleed Surgical History S/P tooth extraction No pertinent past surgical history Family History Father S/P CABG x 4 Stroke Heart attack Heart disease Mother Cancer Paternal Uncle Heart disease Diabetes Paternal Uncle Heart disease Daughter Multiple sclerosis Paternal Grandmother Diabetes Maternal Grandfather Stomach cancer Social History Alcohol intake: current Alcohol intake frequency: holidays/special occasions only Patient Tobacco Use Status: Former Tobacco user Review of Systems Const All systems reviewed & are unremarkable except as noted in HPI and below Physical Exam Vital Signs: Last Vital Signs Pulse 88 02/21/23 13:31 Resp 14 02/21/23 13:31 BP 144/64 H 02/21/23 13:31 Pulse Ox 96 02/21/23 13:31 Oxygen Delivery Method Room Air 02/21/23 13:31 BMI result Body Mass Index 36.6 General: Appears afebrile. Alert and oriented. Mood and affect appropriate. Follows and participates in conversation appropriately. Respiratory effort is unlabored. No cough. No nasal discharge. Able to transition from sit to stand unassisted. Back/Spine/Pelvis Other: Limited lumbar ROM due to pain. Lumbar extension and flexion reproduce moderate pain. 2+ pedal pulses bilaterally. Seated straight leg rise with dorsiflexion negative bilaterally. Patellar reflexes not done due to knee pain and +1 achilles reflexes bilaterally. Mild varicose veins left lower leg with mild non pitting edema left ankle. Facet loading test positive bilaterally. Emmy sign positive on the left, limited Too?s, Pelvic compression and Stinchfield tests are positive on the left. Moderate groin pain with left I/E hip rotations. Valsalva maneuver negative. Cervical Spine: cervical ROM normal and No Cervical spine tenderness Thoracic/Lumbar Spine: thoracic and lumbar spine normal to inspection, No Thoracic/lumbar spine scar(s), Lasegue's sign negative, straight leg raise negative bilaterally, pain with thoraco-lumbar ROM, paraspinal muscle tenderness, No thoracic spinal tenderness and No lumbar spinal tenderness Pelvis: buttock tenderness on the left and no sciatic notch tenderness Sacroiliac joints: bilaterally (left>right) tender to palpation Extrem General: Yes capillary refill normal and Yes no calf tenderness Right lower extremity: hip/thigh (Limited ROM due to pain) Details: normal to inspection and tenderness Location: of the hip Location: laterally; no swelling Results Reviewed Results Reviewed: XR BILATERAL HIPS WITH AP PELVIS 10/04/22 CLINICAL INFORMATION: Pain in the left hip. COMPARISON: CT abdomen/pelvis 05/28/2022. FINDINGS: No acute fractures or subluxation. Moderate joint space narrowing with subcortical sclerosis in both hips. SI joints are symmetric. Pubic symphysis is maintained. Mild bony productive changes are noted in the bilateral acetabula and femoral trochanters. Small pelvic phleboliths and scattered vascular calcifications. IMPRESSION: 1. No acute fractures or subluxation. 2. 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 XR KNEE, LEFT 07/24/22 CLINICAL INFORMATION: Pain COMPARISON: Previous x-ray May 2022 FINDINGS: Bone alignment is normal. No fracture or dislocation. Osteopenia. Arthritis at the medial femoral tibial and patellofemoral joints. Osteophyte at the quadriceps tendon insertion to the patella. Large joint effusion. IMPRESSION: Arthritis and large joint effusion. XR LUMBOSACRAL SPINE 05/31/22 CLINICAL INFORMATION: Low back pain, rule out degenerative disease COMPARISON: Lumbar spine x-ray on 08/16/2020 FINDINGS: The lumbar spine maintains normal alignment. Vertebral body heights are maintained. There is multilevel loss of intervertebral disc space with endplate degenerative changes. Facet arthropathy in the lower lumbar spine. IMPRESSION: Mild degenerative disease of the lumbar spine. Assessment & Plan Assessment & Plan (1) Lumbar spondylosis: Code(s): M47.816 - Spondylosis without myelopathy or radiculopathy, lumbar region (2) Sacroiliac joint pain: Code(s): M53.3 - Sacrococcygeal disorders, not elsewhere classified (3) Left hip pain: Code(s): M25.552 - Pain in left hip Plan Hip and pelvic imaging results reviewed with patient today. Schedule left hip intra-articular steroid injection with local and fluoroscopy for significant left hip pain due to osteoarthritis. Expectations, risks and benefits were reviewed. Patient is aware she will be contacted to schedule this procedure. Short script sent for tramadol, side effects and precautions reviewed with patient. Refill sent for lidocaine patches. All questions were answered and the patient is in agreement of plan. Follow-up after injections and sooner as needed. Medications: New tramadol 50 mg PO DAILY 10 days 10 tabs 0RF pain M25.552 - Pain in left hip, M47.816 - Spondylosis without myelopathy or radiculopathy, lumbar region, M53.3 - Sacrococcygeal disorders, not elsewhere classified Refilled lidocaine 5% 2 patches topical DAILY 30 days PRN 60 ea 1RF pain M17.12 - Unilateral primary osteoarthritis, left knee, M25.562 - Pain in left knee, M47.816 - Spondylosis without myelopathy or radiculopathy, lumbar region Coding Level of Care Code Est Pt Level 4 (30426) Diagnoses Lumbar spondylosis M47.816 Sacroiliac joint pain M53.3 Left hip pain M25.552
[2023-02-21 13:31] VITALS: BP 144/64; PULSE 88; RESP 14; O2SAT 96; BMI 36.6
== END 2023-02-21 13:49 | disposition home or self-care (01) ==
PROVIDERS: PCP Internal Medicine; Visit Provider Nurse Practitioner Family
DX: M47.816 Spondylosis without myelopathy or radiculopathy, lumbar region (principal); M53.3 Sacrococcygeal disorders, not elsewhere classified; M25.552 Pain in left hip
CPT/HCPCS: 99214

== ENCOUNTER → 2023-02-21 13:22 | Outpatient (BNVA) | payer MEDICARE, SELFPAY | PROVIDERS: PCP Internal Medicine; Visit Provider Nurse Practitioner Family | DX: M47.816 Spondylosis without myelopathy or radiculopathy, lumbar region (principal); M53.3 Sacrococcygeal disorders, not elsewhere classified; M25.552 Pain in left hip | CPT/HCPCS: 99212 ==

== ENCOUNTER 2023-02-28 13:06 | Outpatient (REF) | payer MEDICARE, SELFPAY | END 2023-02-28 13:07 | disposition home or self-care (01) | LOC: HO.HMGCX 13:06 | PROVIDERS: PCP Internal Medicine; Visit Provider Internal Medicine | DX: M25.552 Pain in left hip (principal); M25.551 Pain in right hip | CPT/HCPCS: 73522 ==

== ENCOUNTER 2023-03-26 06:16 | Outpatient (REF) | payer MEDICARE, SELFPAY | END 2023-03-26 06:17 | disposition home or self-care (01) | LOC: CF 06:16 | PROVIDERS: Visit Provider Anesthesiology | DX: Z13.89 Encounter for screening for other disorder (principal) | CPT/HCPCS: J2795; J3301; Q9967 ==

== ENCOUNTER 2023-05-07 06:17 | Outpatient (REF) | payer MEDICARE, SELFPAY ==
--- NOTE | ~2023-05-07 | FL_ITS ---
INDICATION: Intraoperative fluoroscopy. FLUOROSCOPY: Fluoroscopy Time: 0.5 minutes Dose/air kerma: 13.4 mGy Images saved: 3 FINDINGS: Multiple intraoperative fluoroscopic images are submitted during right hip injection. Relation with operative report. Evaluation is limited secondary to fluoroscopic technique. IMPRESSION: Intra-operative fluoroscopic imaging provided by radiology during right hip injection. Please refer to operative note for further information.
== END 2023-05-07 06:18 | disposition home or self-care (01) ==
LOC: CF 06:17
PROVIDERS: Visit Provider Anesthesiology
DX: M16.0 Bilateral primary osteoarthritis of hip (principal); M47.816 Spondylosis without myelopathy or radiculopathy, lumbar region; M53.3 Sacrococcygeal disorders, not elsewhere classified
CPT/HCPCS: 20610; J2795; J3301; Q9967

== ENCOUNTER 2023-05-07 13:23 | Outpatient (AMB) | payer MEDICARE, SELFPAY ==
[2023-05-07 13:30] VITALS: BP 120/68; PULSE 81; RESP 16; O2SAT 98; BMI 35.7
--- NOTE | 2023-05-07 13:30 | MHC.OFFVIS ---
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 Accompanied by: Friend Allergies oxycodone [OXYCODONE] Allergy (Severe, Verified 05/07/23 13:33) N/V aspirin [ASPIRIN] Allergy (Intermediate, Verified 05/07/23 13:33) GI UPSET/BLEEDING latex [LATEX] Allergy (Intermediate, Verified 05/07/23 13:33) RASH NSAIDS (Non-Steroidal Anti-Inflamma [NSAIDS (NON-STEROIDAL ANTI-INFLAMMA] Allergy (Intermediate, Verified 05/07/23 13:33) GI UPSET/BLEEDING PFSH Medical History Anxiety GI bleed Surgical History S/P tooth extraction No pertinent past surgical history Family History Father S/P CABG x 4 Stroke Heart attack Heart disease Mother Cancer Paternal Uncle Heart disease Diabetes Paternal Uncle Heart disease Daughter Multiple sclerosis Paternal Grandmother Diabetes Maternal Grandfather Stomach cancer Social History Alcohol intake: current Alcohol intake frequency: holidays/special occasions only Patient Tobacco Use Status: Former Tobacco user Physical Exam Vital Signs: Last Vital Signs Pulse 79 05/07/23 14:11 Resp 16 05/07/23 14:11 BP 140/80 H 05/07/23 14:11 Pulse Ox 98 05/07/23 14:11 Oxygen Delivery Method Room Air 05/07/23 14:11 BMI result Body Mass Index 35.7 Assessment & Plan Assessment & Plan (1) Lumbar spondylosis: Code(s): M47.816 - Spondylosis without myelopathy or radiculopathy, lumbar region (2) Sacroiliac joint pain: Code(s): M53.3 - Sacrococcygeal disorders, not elsewhere classified (3) Left hip pain: Code(s): M25.552 - Pain in left hip Plan: Left hip steroid injection. Informed consent was explained to the patient. All questions were explained and answered. The patient was taken inside of the operating room where she was positioned left lateral decubitus on operating table.. Time-out was performed delineating patient's name and date of , correct site, side, the nature of the procedure, patient's allergy, preoperative antibiotic if needed, need for VT prophylaxis.. All operating room staff was participating in OR time-out procedure. Left hip area of the patient was prepped with ChloraPrep and draped with sterile towels. C-arm was brought over the operating field and picture of left and right lateral views of the bilateral hip joints were delineated on the screen. The smaller joint silhouette was chosen as the target. Projection of the left trochanter to the skin was chosen as the initial needle insertion point. After that the skin and subcutaneous tissues was anesthetized with 2% lidocaine 2.5 mL. 22 gauge 5 in long needle was inserted through the skin and started to advance to the joint space under intermittent lateral and anterior posterior views. The needle advancement was very difficult. The patient has advanced anterolateral acetabular spurs which were preventing me to enter to the joint space under the right angle. Eventually with position of modification of the patient's left lower extremity and changing the position of the needle I was able to advance the needle into the intra-articular space. When needle entered the capsule of the joint small amount of the contrast was injected delineating intra-articular space. After that treatment solution containing . 5 mL of bupivacaine 0.5% and 40 mg of Kenalog was injected into the joint. The needle was withdrawn sterile dressing was applied.The patient tolerated procedure well. Plan Hip and pelvic imaging results reviewed with patient today. Schedule left hip intra-articular steroid injection with local and fluoroscopy for significant left hip pain due to osteoarthritis. Expectations, risks and benefits were reviewed. Patient is aware she will be contacted to schedule this procedure. Short script sent for tramadol, side effects and precautions reviewed with patient. Refill sent for lidocaine patches. All questions were answered and the patient is in agreement of plan. Follow-up after injections and sooner as needed. Orders: Orders FL guidance in treatment room Today M16.0 - Bilateral primary osteoarthritis of hip, M25.552 - Pain in left hip Coding Level of Care Code Procedure Only Diagnoses Lumbar spondylosis M47.816 Sacroiliac joint pain M53.3 Left hip pain M25.552
[2023-05-07 14:11] VITALS: BP 140/80; PULSE 79; RESP 16; O2SAT 98; BMI 35.7
== END 2023-05-07 14:09 | disposition home or self-care (01) ==
LOC: HO.PMCPRC 13:23
PROVIDERS: PCP Internal Medicine; Visit Provider Anesthesiology
DX: M25.552 Pain in left hip (principal)
CPT/HCPCS: 20610; 77002

== ENCOUNTER 2023-06-03 12:42 | Outpatient (AMB) | payer MEDICARE, SELFPAY ==
--- NOTE | 2023-06-03 12:53 | A.OFFVIS_ITS ---
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 Valera. Patient reports 30-40% pain relief since procedure but continues to experience moderate-severe pain with most activities, especially walking, weight bearing or climbing stairs. Pain gets very intense with daily activities and decreases her walking capacity. She states having some good days in between but overall recent injection provided her only partial relief. Patient reports no pain with sitting, resting or laying down. Patient also reports reoccurence of left knee pain with localized tenderness and sharp pain in the anterior aspect of left knee. She had aspiration of large effusion last year with Dr. Higgins. During recent left hip steroid injection, there was difficult needle access per Dr. Valera's procedure notes: The needle advancement was very difficult. The patient has advanced anterolateral acetabular spurs which were preventing me to enter to the joint space under the right angle. Eventually with position of modification of the patient's left lower extremity and changing the position of the needle I was able to advance the needle into the intra-articular space. When needle entered the capsule of the joint small amount of the contrast was injected delineating intra-articular space. After that treatment solution containing . 5 mL of bupivacaine 0.5% and 40 mg of Kenalog was injected into the joint. The needle was withdrawn sterile dressing was applied.The patient tolerated procedure well. Denies any recent cough, cold, infection, fever, any significant changes in her medical history, medications or recent hospitalizations. Past Procedures: 05/07/23: Left therapeutic intra-articul ar hip [id number]% pain relief PRIOR: Patient presents today for follow-up for chronic low back pain and severe left hip pain. She attended physical therapy was at [facility] with minimal improvement in her symptoms. She has been managing her pain with Tylenol and lidocaine patches with continued symptoms. Most recent hip x-ray showed moderate degenerative osteoarthritis in both hips. She also has significant low back pain that radiates into her left buttock and lateral hip consistent with sacroiliac joint pain and facetogenic pain components. Patient is interested and therapeutic hip intra-articular steroid injection. She reports A1C=5.7 on 11/2022. Denies any recent cough, cold, infection, fever, bladder or bowel dysfunction, saddle anesthesia, or other significant changes in medical history since last office visit. PRIOR: Patient is a pleasant 77 years old female presents today for initial evaluation of significant lower back pain, left hip and sharp left knee pain that affects her walking and regular movements. Denies any recent trauma, injury or falls. Reports slip and fall injury in 2007 which trigger her current pain generators from which left anterior knee pain in medial aspect is most concerning. Patient was seen in the ED on 07/24/22 for knee pain and swelling with knee aspiration without significant pain relief. Her back pain is mainly axial and worsened with bending or flexion but not with extension. SLR testing is negative bilaterally but increases left knee pain. Reports short walking distance tolerance due to left groin pain with walking or weight bearing. She also has localized tenderness in the projection of both sacroiliac joints, worse on the left. Denies pain with sitting, resting or sleeping. Pain affects her daily activities, functions and quality of life. She has started exercise class at [facility] called [facility] [facility] with some improvement in her range of motions and is working on strengthening. Patient avoids NSAIDs due to history of GI upset and bleeding. Denies any fever, chills, weight loss, abdominal pain, numbness and tingling, bladder or bowel incontinence or saddle anesthesia. Location Lower back pain, bilateral knee pain, L>R, left hip pain Duration Chronic bilateral knee- 5 months, back- several years Characteristics of symptom or complaint Aching, sharp, shooting, heavy, radiating, squeezing, sore, hurting Aggravating or associated factors Weight bearing, walking, standing, climbing stairs Relieving factors Rest, sitting, laying down, Tylenol Treatment PT- no improvement, left knee aspiration 07/24 [facility] Medical History Anxiety GI bleed Surgical History S/P tooth extraction No pertinent past surgical history Family History Father S/P CABG x 4 Stroke Heart attack Heart disease Mother Cancer Paternal Uncle Heart disease Diabetes Paternal Uncle Heart disease Daughter Multiple sclerosis Paternal Grandmother Diabetes Maternal Grandfather Stomach cancer Social History Alcohol intake: current Alcohol intake frequency: holidays/special occasions only Patient Tobacco Use Status: Former Tobacco user Review of Systems Const All systems reviewed & are unremarkable except as noted in HPI and below Physical Exam Vital Signs: Last Vital Signs Pulse 75 06/03/23 12:58 BP 195/80 H 06/03/23 12:58 Pulse Ox 98 06/03/23 12:58 Oxygen Delivery Method Room Air 06/03/23 12:58 BMI result Body Mass Index 35.5 General: Appears afebrile. Alert and oriented. Mood and affect appropriate. Follows and participates in conversation appropriately. Respiratory effort is unlabored. No cough. No nasal discharge. Able to transition from sit to stand unassisted. Back/Spine/Pelvis Cervical Spine: cervical ROM normal and No Cervical spine tenderness Thoracic/Lumbar Spine: thoracic and lumbar spine normal to inspection, No Thoracic/lumbar spine scar(s), Lasegue's sign negative, straight leg raise negative bilaterally, pain with thoraco-lumbar ROM, paraspinal muscle tenderness, No thoracic spinal tenderness and No lumbar spinal tenderness Pelvis: buttock tenderness on the left and no sciatic notch tenderness Sacroiliac joints: bilaterally (left>right) tender to palpation Extrem General: Yes capillary refill normal and Yes no clubbing, cyanosis or edema Left lower extremity: hip/thigh (Limited ROM due to pain. +TTP lateral hip and anterior thigh) Details: normal to inspection and crepitus; no swelling, no ecchymosis and no unusual warmth and knee (Limited ROM due to pain) Details: tenderness Location: of the patella and of the pre-patellar area and crepitus Results Reviewed Results Reviewed: XR BILATERAL HIPS WITH AP PELVIS 10/04/22 CLINICAL INFORMATION: Pain in the left hip. COMPARISON: CT abdomen/pelvis 05/28/2022. FINDINGS: No acute fractures or subluxation. Moderate joint space narrowing with subcortical sclerosis in both hips. SI joints are symmetric. Pubic symphysis is maintained. Mild bony productive changes are noted in the bilateral acetabula and femoral trochanters. Small pelvic phleboliths and scattered vascular calcifications. IMPRESSION: 1. No acute fractures or subluxation. 2. 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 XR KNEE, LEFT 07/24/22 CLINICAL INFORMATION: Pain COMPARISON: Previous x-ray May 2022 FINDINGS: Bone alignment is normal. No fracture or dislocation. Osteopenia. Arthritis at the medial femoral tibial and patellofemoral joints. Osteophyte at the quadriceps tendon insertion to the patella. Large joint effusion. IMPRESSION: Arthritis and large joint effusion. XR LUMBOSACRAL SPINE 05/31/22 CLINICAL INFORMATION: Low back pain, rule out degenerative disease COMPARISON: Lumbar spine x-ray on 08/16/2020 FINDINGS: The lumbar spine maintains normal alignment. Vertebral body heights are maintained. There is multilevel loss of intervertebral disc space with endplate degenerative changes. Facet arthropathy in the lower lumbar spine. IMPRESSION: Mild degenerative disease of the lumbar spine. Assessment & Plan Assessment & Plan (1) Osteoarthritis, hip, bilateral: Code(s): M16.0 - Bilateral primary osteoarthritis of hip (2) Left knee pain: Code(s): M25.562 - Pain in left knee (3) Lumbar spondylosis: Code(s): M47.816 - Spondylosis without myelopathy or radiculopathy, lumbar region (4) Left hip pain: Code(s): M25.552 - Pain in left hip Plan Patient is one month status post left hip intra-articular steroid injection with fluoroscopy with partial and minimal relief. Patient is being referred back to Orthopedics for left knee and left hip pain for potential surgical evaluation. Needle access was very difficult during recent steroid injection as noted above. We discussed short script of low dose opiod for moderate to severe pain for left hip/knee pain as patient is allergic to NSAIDs. She reports poor tolerance with oxycodone and also had nausea with tramadol. Refills provided for lidocaine patches. Continue activity modifications, elevation, ice/heat therapy, topical applications. All questions and concerns have been answered and patient agreed with the plan. Follow up as needed. Orders: Referrals Orthopedics Referral M16.0 - Bilateral primary osteoarthritis of hip, M25.562 - Pain in left knee Medications: Refilled lidocaine 5% 2 patches topical DAILY 30 days PRN 60 ea 1RF pain M17.12 - Unilateral primary osteoarthritis, left knee, M25.562 - Pain in left knee, M47.816 - Spondylosis without myelopathy or radiculopathy, lumbar region Discontinued tramadol Discontinued Reason: Patient no longer taking 50 mg PO DAILY 10 days 10 tabs 0RF pain M25.552 - Pain in left hip, M47.816 - Spondylosis without myelopathy or radiculopathy, lumbar region, M53.3 - Sacrococcygeal disorders, not elsewhere classified Coding Level of Care Code Est Pt Level 4 (52633) Diagnoses Osteoarthritis, hip, bilateral M16.0 Left knee pain M25.562 Lumbar spondylosis M47.816 Left hip pain M25.552
[2023-06-03 12:58] VITALS: BP 195/80; PULSE 75; O2SAT 98; BMI 35.5
== END 2023-06-03 13:23 | disposition home or self-care (01) ==
PROVIDERS: PCP Internal Medicine; Visit Provider Nurse Practitioner Family
DX: M16.0 Bilateral primary osteoarthritis of hip (principal); M25.562 Pain in left knee; M47.816 Spondylosis without myelopathy or radiculopathy, lumbar region; M25.552 Pain in left hip
CPT/HCPCS: 99214

== ENCOUNTER → 2023-06-03 12:42 | Outpatient (BNVA) | payer MEDICARE, SELFPAY | PROVIDERS: PCP Internal Medicine; Visit Provider Nurse Practitioner Family | DX: M16.0 Bilateral primary osteoarthritis of hip (principal); M25.552 Pain in left hip; M25.562 Pain in left knee; M47.816 Spondylosis without myelopathy or radiculopathy, lumbar region | CPT/HCPCS: 99212 ==

== ENCOUNTER 2023-06-13 12:04 | Outpatient (REF) | payer MEDICARE, SELFPAY ==
--- NOTE | ~2023-06-13 | XR_ITS ---
EXAMINATION: XR PELVIS CLINICAL INFORMATION: Pain and unspecified hip. COMPARISON: 02/28/2023 bilateral hips. 10/04/2022 pelvis and bilateral hips. TECHNIQUE: AP view of the pelvis. FINDINGS: Degenerative changes in the imaged lower lumbar spine and bilateral sacroiliac joints. Pubic symphysis appears stable. Advanced degenerative changes with joint space narrowing and hypertrophic change in the bilateral hips. Bones are diffusely demineralized, left greater than right. XR/XR pelvis 1-2V IMPRESSION: Advanced degenerative changes bilateral hips.
== END 2023-06-13 12:05 | disposition home or self-care (01) ==
LOC: HO.HOSX 12:04
PROVIDERS: Visit Provider Orthopaedic Surgery
DX: M16.0 Bilateral primary osteoarthritis of hip (principal); M54.50 Low back pain, unspecified; R10.30 Lower abdominal pain, unspecified
CPT/HCPCS: 72170; 99212

== ENCOUNTER 2023-06-13 12:42 | Outpatient (AMB) | payer MEDICARE, SELFPAY ==
--- NOTE | 2023-06-13 13:27 | MHC.OFFVIS ---
Intake Intake Visit Reasons: Newprob-Left hip pain Intake Note: Merly is a 77 year old female who presents today for a new problem visit with complaints of left hip pain. She would like to discuss surgical treatment as her pain has become so significant it is limiting her ADOL. She also complains of left knee pain and swelling that has previously been aspirated. Left Hip Injection done with pain mgmt on 05/07/23 - She explains that radiologist did not specify a bone spur in the hip and when she went for the injection the doctor was unable to get past the spur to get the injection in adequate position. History of Cancer which she feels that undergoing chemotherapy has left a footprint and residual symptoms such as pain. She has colitis and is unable to take NSAIDS due to bleeding and Tylenol is ineffective. She was using topical lidocaine but was told that she was using too often so she has since dicontinued. Allergies oxycodone [OXYCODONE] Allergy (Severe, Verified 06/13/23 13:27) N/V aspirin [ASPIRIN] Allergy (Intermediate, Verified 06/13/23 13:27) GI UPSET/BLEEDING latex [LATEX] Allergy (Intermediate, Verified 06/13/23 13:27) RASH NSAIDS (Non-Steroidal Anti-Inflamma [NSAIDS (NON-STEROIDAL ANTI-INFLAMMA] Allergy (Intermediate, Verified 06/13/23 13:27) GI UPSET/BLEEDING HPI Newprob-Left hip pain HPI Details Merly is a 77 year old female who presents today for a new problem visit with complaints of left hip pain. She would like to discuss surgical treatment as her pain has become so significant it is limiting her ADLs. She also complains of left knee pain and swelling that has previously been aspirated. Left Hip Injection done with pain mgmt on 05/07/23 - She explains that radiologist did not specify a bone spur in the hip and when she went for the injection the doctor was unable to get past the spur to get the injection in adequate position. History of Cancer which she feels that undergoing chemotherapy has left a footprint and residual symptoms such as pain. She has colitis and is unable to take NSAIDS due to bleeding and Tylenol is ineffective. She was using topical lidocaine but was told that she was using too often so she has since discontinued. She describes lumbar pain with extension into the lateral left hip. Occasional groin pain. [facility] Medical History Anxiety GI bleed Surgical History S/P tooth extraction No pertinent past surgical history Family History Father S/P CABG x 4 Stroke Heart attack Heart disease Mother Cancer Paternal Uncle Heart disease Diabetes Paternal Uncle Heart disease Daughter Multiple sclerosis Paternal Grandmother Diabetes Maternal Grandfather Stomach cancer Social History Alcohol intake: current Alcohol intake frequency: holidays/special occasions only Patient Tobacco Use Status: Former Tobacco user Physical Exam Extrem Other: negative impingement Results Reviewed Results Reviewed: I personally reviewed relevant radiographs. There is moderate left hip OA with acetabular overcoverage Assessment & Plan Assessment & Plan (1) Osteoarthritis, hip, bilateral: Code(s): M16.0 - Bilateral primary osteoarthritis of hip Plan: This is a 77 yo F with left hip OA. Her symptoms however are lumbar and I am worried that arthroplasty would not help her with her primary pain complaint. To proceed forward with arthroplasty I would need to see her have near complete relief with a successful hip injection. Otherwise I do not think the risk is justifiable. I will discuss with pain management. Orders: Orders XR pelvis 1-2V 06/13/23 M25.559 - Pain in unspecified hip Coding Level of Care Code Est Pt Level 4 (97528) Diagnoses Osteoarthritis, hip, bilateral M16.0
== END 2023-06-13 14:11 | disposition home or self-care (01) ==
PROVIDERS: PCP Internal Medicine; Visit Provider Orthopaedic Surgery
DX: M16.0 Bilateral primary osteoarthritis of hip (principal)
CPT/HCPCS: 99213

== ENCOUNTER 2023-06-25 13:00 | Outpatient (REF) | payer MEDICARE, SELFPAY ==
--- NOTE | ~2023-06-25 | XR_ITS ---
EXAMINATION: XR LUMBOSACRAL SPINE CLINICAL INFORMATION: Low back pain. COMPARISON: X-ray pelvis 06/13/2023 and 02/20/2023. Lumbar spine 05/31/2022. TECHNIQUE: Three views of the lumbosacral spine. FINDINGS: Slight rightward curvature of the thoracolumbar spine. Bones are diffusely demineralized. Atherosclerotic aortoiliac calcifications. Facet arthritis in the lower lumbar spine. Redemonstration of multilevel lumbar spondylosis with multilevel loss of disc space height. Degenerative changes of the imaged lower thoracic spine. XR/XR lumbar spine 2-3V IMPRESSION: Redemonstration of multilevel lumbar spondylosis with multilevel loss of disc space height.
== END 2023-06-25 13:01 | disposition home or self-care (01) ==
LOC: HO.HMGCX 13:00
PROVIDERS: PCP Internal Medicine; Visit Provider Internal Medicine
DX: M45.9 Ankylosing spondylitis of unspecified sites in spine (principal)
CPT/HCPCS: 72100

== ENCOUNTER 2023-09-12 12:10 | Outpatient (AMB) | payer MEDICARE, SELFPAY ==
[2023-09-12 12:26] VITALS: BP 136/74; PULSE 71; BMI 36.1
--- NOTE | 2023-09-12 12:26 | A.OFFVIS_ITS ---
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 Accompanied by: Self / Same As Patient Allergies oxycodone [OXYCODONE] Allergy (Severe, Verified 06/13/23 13:27) N/V aspirin [ASPIRIN] Allergy (Intermediate, Verified 06/13/23 13:27) GI UPSET/BLEEDING latex [LATEX] Allergy (Intermediate, Verified 06/13/23 13:27) RASH NSAIDS (Non-Steroidal Anti-Inflamma [NSAIDS (NON-STEROIDAL ANTI-INFLAMMA] Allergy (Intermediate, Verified 06/13/23 13:27) GI UPSET/BLEEDING Medication List - Last Reconciled 09/12/23 by Quique Loco MD ascorbic acid (vitamin C) ER 1,000 mg PO DAILY carvedilol (Coreg) 3.125 mg PO BID 90 days diclofenac sodium 1% (Arthritis Pain (diclofenac)) 4 grams topical QID 30 days glipizide 5 mg PO BID latanoprost 0.005% 1 drp ophthalmic (eye) DAILY levothyroxine 75 mcg PO .QOD levothyroxine 50 mcg PO .QOD lidocaine 5% 2 patches topical DAILY PRN 30 days lorazepam 1 mg PO TID PRN simvastatin 20 mg PO BEDTIME HPI Comments Details: Merly returns for follow-up. In the past she was seen regarding elevated troponins. She came to the ER for colitis and rectal bleeding in that context had troponins that were borderline. From cardiac, no specific complaints. She has aortic sclerosis but no significant stenosis. She does run high blood pressures but no home monitoring. Today's blood pressure seems okay. [facility] Medical History Anxiety GI bleed Surgical History S/P tooth extraction No pertinent past surgical history Family History Father S/P CABG x 4 Stroke Heart attack Heart disease Mother Cancer Paternal Uncle Heart disease Diabetes Paternal Uncle Heart disease Daughter Multiple sclerosis Paternal Grandmother Diabetes Maternal Grandfather Stomach cancer Social History Alcohol intake: current Alcohol intake frequency: holidays/special occasions only Patient Tobacco Use Status: Former Tobacco user Review of Systems Const Denies chills, Denies fatigue, Denies fever(s), Denies weight gain and Denies weight loss ENT Denies dizziness Card Denies chest pain, Reports leg edema, Denies lightheadedness, Denies palpitations, Denies dyspnea on exertion, Denies orthopnea and Denies other Resp Denies cough and Denies dyspnea on exertion GI Denies hematochezia and Denies change in stool character Musc Denies abnormal gait, Denies muscle weakness, Denies numbness, Denies radiating pain into limb and Denies tingling Neuro Denies abnormal gait, Denies dizziness, Denies numbness and Denies tingling Endo Denies fatigue and Denies palpitations Physical Exam Vital Signs: Last Vital Signs Pulse 71 09/12/23 12:26 BP 136/74 09/12/23 12:26 BMI result Body Mass Index 36.1 Const General: comfortable and no acute distress Orientation/consciousness: patient oriented x3 HEENT Other: Unremarkable Head: Yes normal to inspection Neck Neck: Yes normal visual inspection Chest Chest palpation & inspection: normal inspection of the chest Resp Auscultation: clear to auscultation bilaterally Cardio Palpation: normal PMI Heart sounds: S1 normal heart sound present, S2 normal heart sound present, no gallops, Murmur heart sound present systolic III/ and no rubs GI Palpation (GI): Soft to palpation Back/Spine/Pelvis Other: unremarkable Skin General skin exam: no rashes or lesions noted Neuro General: patient oriented x3 Extrem General: Yes normal to inspection Psych Mental Status: mental status grossly normal Office Procedures EKG Details: EKG with sinus rhythm at 71/Min; right bundle-branch block pattern. [id number], Complete Assessment & Plan Assessment & Plan (1) Elevated troponin: Code(s): R77.8 - Other specified abnormalities of plasma proteins Category: Medical (2) Aortic valve sclerosis: Code(s): I35.8 - Other nonrheumatic aortic valve disorders Category: Medical (3) Essential hypertension: Code(s): I10 - Essential (primary) hypertension Category: Medical (4) Anxiety: Code(s): F41.9 - Anxiety disorder, unspecified Category: Medical Plan Cardiac studies reviewed. Echocardiogram with LVEF 60-65% without wall motion abnormalities. Mild aortic valve calcification. Mild LVH. Myocardial perfusion imaging study shows normal perfusion. In the exercise portion, reached 5.9 Mets. Hypertensive blood pressure response. Overall, she does not have any clear symptoms or signs of ischemic heart disease and testing is also reassuring. Mainly risk factor modification. She does have high blood pressures and advised her to do home monitoring. She remains on carvedilol for that. Advised compliance. There is mention of irregular use in the past. With regard to aortic valve sclerosis, we will get echocardiogram before follow- up. Total time spent including review of data, counseling, documentation, coordination of care-31 minutes. Orders: Orders CA echo transthoracic complete 1 Year I35.8 - Other nonrheumatic aortic valve disorders Coding Level of Care Code Est Pt Level 4 (61512) Diagnoses Elevated troponin R77.8 Aortic valve sclerosis I35.8 Essential hypertension I10 Anxiety F41.9 CPT Codes EKG - CPT: 32297-[id number], Complete ([id number])
== END 2023-09-12 12:59 | disposition home or self-care (01) ==
PROVIDERS: PCP Internal Medicine; Visit Provider Internal Medicine
DX: R77.8 Other specified abnormalities of plasma proteins (principal); I35.8 Other nonrheumatic aortic valve disorders; I10 Essential (primary) hypertension; F41.9 Anxiety disorder, unspecified
CPT/HCPCS: 93010; 99214

== ENCOUNTER → 2023-09-12 12:10 | Outpatient (BNVA) | payer MEDICARE, SELFPAY | PROVIDERS: PCP Internal Medicine; Visit Provider Internal Medicine | DX: R77.8 Other specified abnormalities of plasma proteins (principal); I35.8 Other nonrheumatic aortic valve disorders; I10 Essential (primary) hypertension; F41.9 Anxiety disorder, unspecified | CPT/HCPCS: 93005; 99212 ==

== ENCOUNTER 2024-05-19 09:34 | Outpatient (REF) | payer MEDICARE, SELFPAY ==
[2024-05-19 13:02] LABS: MANUAL DIFF FLAG NO
[2024-05-19 13:20] LABS: Basophils Absolute Auto 0.1 X10*3/uL (0.0-0.2); Basophils Percent Auto 0.7 % (0-2); Eosinophils Absolute Auto 0.2 X10*3/uL (0.0-0.4); Eosinophils Percent Auto 2.5 % (0-4); Hematocrit 42.2 % (37.0-47.0); Hemoglobin 13.9 g/dl (12.0-16.0); Imm Gran Abs Auto 0.02 X10*3/uL (0.00-0.03); Imm Gran Pct Auto 0.3 % (0.0-0.4); Lymphocytes Absolute Auto 1.6 X10*3/uL (1.2-4.9); Lymphocytes Percent Auto 21.5 % (20-40); Mean Corpuscular HGB Conc 32.9 g/dl (31.0-35.0); Mean Platelet Volume 10.7 fL (9.4-12.3); Monocytes Absolute Auto 0.6 X10*3/uL (0.1-1.2); Monocytes Percent Auto 8.7 % (2-11); Neutrophils Absolute Auto 4.8 x10*3/uL (2.0-8.3); Neutrophils Percent Auto 66.3 % (45-73); Platelet Count 192 X10*3/uL (160-400); Red Blood Count 4.49 X10*6/uL (4.20-5.50); Red Cell Distribution Width 12.7 % (11.0-16.0); White Blood Count 7.2 X10*3/uL (4.8-10.8)
[2024-05-19 13:58] LABS: Alanine Aminotransferase 23 U/L (0-31); Albumin Level 3.8 g/dL (3.5-5.0); Alkaline Phosphatase 80 U/L (39-117); Anion Gap 13 (12-20); Aspartate Amino Transferase 42 U/L (5-31); Bilirubin Total 1.1 mg/dL (0.0-1.0); Blood Urea Nitrogen 7 mg/dL (9-16); Calcium 9.7 mg/dL (8.4-10.2); Carbon Dioxide 24 mmol/L (22-29); Chloride 113 mmol/L (96-108); Cholesterol 163 mg/dL (<200); Estimated Glomerular Filt Rate > 60; Glucose Fasting 111 mg/dL (60-99); HDL Cholesterol 53 mg/dL (>40); LDL Cholesterol Calculated 92 mg/dL (<100); Potassium 3.8 mmol/L (3.3-5.1); Sodium 146 mmol/L (135-145); Total Protein 6.7 g/dL (6.5-8.0); Triglycerides 90 mg/dL (<150)
[2024-05-19 13:59] LABS: Thyroid Stimulating Hormone 1.13 uIU/mL (0.32-4.0)
== END 2024-05-19 09:35 | disposition home or self-care (01) ==
LOC: HO.HMGCLDS 09:34
PROVIDERS: PCP Internal Medicine; Visit Provider Internal Medicine
DX: R53.83 Other fatigue (principal); E03.9 Hypothyroidism, unspecified; E78.5 Hyperlipidemia, unspecified
CPT/HCPCS: 36415; 80053; 80061; 84439; 84443; 85025

== ENCOUNTER 2024-07-15 13:18 | Outpatient (REF) | payer MEDICARE, SELFPAY ==
--- NOTE | ~2024-07-15 | MM_ITS ---
EXAMINATION: DXA BONE DENSITY AXIAL HISTORY: POST MENOPAUSAL TECHNIQUE: [employer] Dual energy absorptiometry (DEXA) of the lumbar spine, total left hip, and femoral neck was performed. COMPARISON: Comparison is made with the prior examination dated 04/11/2018. FINDINGS: The bone mineral density of the lumbar spine is 1.211 with a T-score of 0.3, and a Z-score of 1.4. This is indicative of normal bone mineral density. This represents a BMD change of 7.3% compared to the prior exam. This is statistically significant. The bone mineral density of the left total hip is 0.875 with a T-score of -1.1, and a Z-score of 0.4. This is indicative of osteopenia. This represents a BMD change of -9.6% compared to the prior exam. This is statistically significant. The bone mineral density of the left femoral neck is 0.727 with a T-score of -2.2, and a Z-score of -0.6. This is indicative of osteopenia.- This represents a BMD change of -8.8% compared to the prior exam. FRACTURE RISK: The FRAX index suggests a ten year probability of major osteoporotic fracture of 15.7%, and of hip fracture 4.8%. MM/XR DEXA axial skeleton IMPRESSION: Based on bone mineral density, and according to World Health Organization (WHO) criteria, the diagnosis is consistent with osteopenia. All bone density values are in grams per centimeter squared (g/cm2). Statistically, 68% of repeat scans fall within 1 SD (+/- 0.010 g/cm2 for AP spine L1-L4) and 1 SD (+/- 0.012 g/cm2 for femur total) FRAX is a trademark of the [employer]'s [place] [facility] Metabolic Bone Disease, a World Health Organization (WHO) Collaborating Center. Electronically signed by: Ulises Lynne MD 07/15/2024 02:42 PM EDT
== END 2024-07-15 13:19 | disposition home or self-care (01) ==
LOC: HO.MAMMO 13:18
PROVIDERS: PCP Internal Medicine; Visit Provider Internal Medicine
DX: Z12.31 Encounter for screening mammogram for malignant neoplasm of breast (principal); Z13.820 Encounter for screening for osteoporosis; Z78.0 Asymptomatic menopausal state
CPT/HCPCS: 77063; 77067; 77080

== ENCOUNTER → 2024-07-15 14:00 | Outpatient (BNV) | payer MEDICARE, SELFPAY | PROVIDERS: PCP Internal Medicine; Visit Provider Radiology Diagnostic Radiology | DX: E28.39 Other primary ovarian failure (principal) | CPT/HCPCS: 77080 ==

== ENCOUNTER 2024-07-28 14:33 | Outpatient (AMB) | payer MEDICARE, SELFPAY ==
--- OUTSIDE RECORDS SUMMARY | 2024-07-28 14:35 | XMS_ITS | Data Portability ---
Author Organization [place] - [facility], [facility] Address [address] [place] [address] Care Team Providers Care Load Dropper Name Role Phone KADENJESSE Lepe Primary Care Provider [phone] Assessment Encounter Date Assessment Date Assessment LastModified by Organization Details LastModified Time 04/27/2024 04/27/2024 78-year-old female with lumbar spondylosis. History of head neck cancer treated with radiation and chemotherapy. MRI from last October unremarkable for any surgical lesions patient reassured this regard. Symptoms however are progressive and consistent with neuro claudication. Possibly she has had some progression or development of metastatic disease. Will order an MRI in this regard and follow-up when that is completed. Natural history reviewed and questions answered. Nails [email or web address] Not available 04/27/2024 15:44:43 04/30/2024 04/30/2024 PROBLEM: Left Hi p Endstage Osteoarthritis HISTORY: The patient is a 78-year-old female who presents today for evaluation of left-sided hip pain. The patient apparently has a long history of ongoing hip and back symptoms. She was seen at [facility]. She reports she initially had some epidural injections which were not helpful for her. She had a left intra-articular hip injection performed on March 25, 2024 which provided about 4 days of relief. She has had multiple corticosteroid injections in her knees which helped her knee pain. She states most recent corticosteroid injection also helped her back. Patient reports significant difficulty climbing ascending stairs. She has difficulty walking any distance. She has difficulty donning and doffing shoes. She has difficulty transitioning from sit to stand. She notes increasing functional limitation due to the severity of her symptoms. She has taken tried Tylenol for her symptoms. She cannot tolerate anti-inflammatori es due to colitis. She does not walk with a cane or assistive device. The patient's hip symptom profile form was reviewed and included in the record. The patient remains symptomatic and has had unsuccessful history of appropriate conservative therapy (non-surgical medical management). Non surgical medical management has been implemented for 3 months or more to assess effectiveness. Conservative treatment as clinically appropriate for the patient? s current episode of care including, but not limited to, one or more of the following: anti-inflammatory medications, analgesics, flexibility and muscle strengthening exercises, supervised physical therapy (Activities of daily living (ADLs) diminished despite completing a plan of care), activity restrictions as is reasonable, assistive device use, weight reduction as appropriate, and therapeutic injections into the joint as appropriate PFMSH and ROS have been reviewed, updated, and is located in the patient? s chart. PAST MEDICAL HISTORY: Past medical history is significant for diabetes, hypercholesteremi a, hypertension, colitis, anxiety, depression, thyroid disease, neck pain, back pain PAST SURGICAL HISTORY: Past surgical history includes none reported MEDICATIONS: List is available for review in the chart . ALLERGIES: Patient reports an allergy to NSAIDs and opioids. Does not report an allergy to metal, latex, Iodine, tape, or adhesives. SOCIAL HISTORY: The patient is retired. She quit smoking 28 years ago. She does not consume alcohol or illegal drugs. She is . 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 She lives alone comes to the office today with a friend PHYSICAL EXAMINATION: Please see vitals recorded below Mental status: Alert and lucid. Normal insight, affect, and grooming. 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 No spasticity or clonus noted. Extremities: Calves are soft and non-tender. Skin intact. Palpable pedal pulses equal bilaterally. Peripheral vascular, lymphatic examination, skin, neurological coordination, reflexes, sensation are within normal limits. ORTHOPEDIC EXAMINATION: Negative SLR tests bilaterally. Full ROM of both knees without pain. She has hip flexion to about 80 degrees. She is about 10 degrees of internal/external rotation of her hip. She states her hip is much less painful since Raissa gave her a cortisone injection. But she indicates that these motions are typically painful. She does have a positive Stinchfield test. She denies any lateral tenderness. The patient ambulates with a modestly antalgic gait. IMAGING: X-rays ordered, obtained, and reviewed today on [facility] PACS: AP pelvis, Marking AP of the Left hip, and Direct Lateral of the Left Hip. Demonstrate end-stage osteoarthritis of the Left hip with bone on bone articulation. Subchondral sclerosis and osteophyte formation are visible. There is no significant dysplasia. Previously obtained X-rays reviewed in the office today on NEOS PACS: Weight bearing AP of Both knees, Kaiser view of Both Knees, [place] View of Both Knees, and Lateral of the Left knee; demonstrate severe end-stage osteoarthritis of the Left Knee. There is dxjo-aw-kxxl articulation medially, subchondral sclerosis, osteophyte formation. There is varus deformity and there is Moderate patellofemoral involvement. There is Kellgren Shashank grade 4 osteoarthritis. IMPRESSION: Left hip and knee end-stage osteoarthritis PLAN: I reviewed with the patient surgical and nonsurgical means to control symptoms. Based on the patient's reported symptom profile I am suspicious that she has end-stage osteoarthritis of both her hip and her knee. This is supported by radiographic imaging. Patient does have multiple corticosteroid injections in multiple joints. Intra-articular hip injection did provide about 4 days of consistent pain relief. Patient is a large lateral osteophyte. I think she would benefit from total hip arthroplasty. I reviewed the risks and benefits surgery with the patient in the office today. Patient would like to proceed with total hip arthroplasty. She understands the likelihood of incomplete pain relief as she has multiple sites of disease. The patient understands that they are at potential increased risk of delayed recovery and incomplete symptom relief. The patient has exhausted all conservative treatment, therapy and measures. The patient was thoroughly counseled today regarding their hip condition, its natural history and the options, both operative and non-operative. The nature of hip replacement surgery, the potential risks, benefits, and complications, the magnitude of the surgery, the intensity of postoperative recovery as well as its elective nature was explained at length today. Issues regarding lifelong dislocation, infection, and activity precautions were reviewed. The longevity of the implants was discussed. The pros and cons of the different bearing surfaces were explained. The patient understands the potential need for revision surgery within the next 15 years. The patient also understands the potential complexity of a revision situation as well. A copy of my hip replacement information packet was given. The patient will require clearance from a medical doctor prior to surgery. The patient wishes to schedule an elective total hip replacement at this time. They were educated about the goal of discharge home from the hospital and given a prescription for pre-hab physical therapy. Next planned follow-up is at the history and physical. The patient knows I will be happy to meet with them again at any time in order to review any additional questions or concerns that they might have. Patient was satisfied with this plan. I attempted to answer all of the patient's questions. [employer] speech recognition full stack python developer software was used to create portions of this document. An attempt at proofreading has been made to minimize errors. Please call for corrections. [email or web address] Not available 04/30/2024 14:58:41 Plan of Treatment Reminders Order Date Submit Date Provider Last Modified By Organization Details Last Modified Time Details Appointments LORENA Arnold&Sonia 2024 09:30A M Raquel Navarro CNP Not available Not available Not available SURGERY @ [facility] 2024 07:30A M Brannon Benson MD Not available Not available Not available POST OP 15 2024 10:45A M Raissa martinez PA-C Not available Not available Not available POST OP 15 2024 11:00A M Rohini Solano PA-C Not available Not available Not available RECHECK 15 2024 01:00P M Pascual Madera PA-C Not available Not available Not available RECHECK 10 2024 01:00P M Brannon Benson MD Not available Not available Not available Lab None recorded . Referral None recorded . Procedures None recorded . Surgeries None recorded . Imaging XR, hip + pelvis, unilater al, 2 or 3 view - 206, [address] Benson's protocol . 2024 025 [email or web address] [facility], [address], [place], [address], 05/11/2024 14:24:10 Medication Orders None recorded . Patient TargetsNo targets recorded. Patient InstructionsNo instructions recorded. Reason for Referral None Reported. Results Created Date Observation Date Name Description Value Unit Range Abnormal Flag Note LastModifiedBy Organization Detail LastModifiedTime 04/30/1904/30/2024 XR, hip + pelvi s, unila teral , 2 or 3 view http:/ [email or web address] ?Encry pted=s hAaTro YD8dLq bEUv6g %2BXZw aYqtaq 0bqfl% 2Fg9IQ a4ajBk vP9nXo QUaueC m3YtLR FvZlgJ JJ8mAn HZtai3 9o3054 AC0Kqb XiEWaW nKiQtr MwF INTERFACE [facility] [address], [place], [address], 04/30/2024 13:50:56 04/30/19 25 04/30/2024 XR, hip + pelvi s, unila teral , 2 or 3 view http:/ [email or web address] ?Encry pted=s hAaTro YD8dLq bEUv6g %2BXZw aYqtaq 0bqfl% 2Fg9IQ a4ajBk vP9nXo QUaueC m3YtLR FvZlgJ JJ8mAn HZtai3 8t9049 AC0Kqb XiEWaW nKiQtr MwF INTERFACE [facility] [address], [place], [address], 04/30/2024 13:50:57 05/06/19 25 05/04/2024 MRI, lumba r spine , w/wo contr ast [facility] Access ion Number : [id number] Patien t Name: Merly Mendoza l Record Number : [id number] Date of : 1945 Date of Exam: 2024 Referr ing Physic bienvenido: Ulises Smith [address] [place] [address] Exam: MR Lumbar Spine (C-/C+ ) CPT 29187 Room Descri ption: [facility] 3T MR Lumbar Spine (C-/C+ ) CPT 15627 INDICA TION: Reason For Exam: Radicu lopath y, lumbar region , , eval for progre ssion or develo pment of metast atic diseas e\E E\prev ious mri done at [facility], Rule Out: eval for progre ssion or develo pment of metast atic diseas e Reason For Exam: Radicu lopath y, lumbar region , , eval for progre ssion or develo pment of metast atic diseas e\E E\prev ious mri done at [facility], Rule Out: eval for progre ssion or develo pment of metast atic diseas e Depart ment Protoc ol TECHNI QUE: MRI of the lumbar spine was perfor med with and withou t intrav enous contra st utiliz ing sagitt al T1, sagitt al T2, sagitt al STIR, axial T1, and axial T2-gonzalez ghted sequen lalo, and post-c ontras t sagitt al T1 and axial T1-gonzalez ghted sequen lalo. 18 mL Dotare m intrav enous contra st was admini stered . COMPAR MACY: Lumbar spine MRI 10/04/19 24. FINDIN GS: NUMBER ING: The study assume s 5 non-ri b-bear ing lumbar type verteb ral bodies . ALIGNM ENT, VERTEB GÓMEZ, MARROW , AND DISCS: Alignm ent is normal . Verteb ral body height s are preser brea. There are again multil evel endpla te osteop hytes as well as combin ed Modic type I and type II signal change s from L1-L2 throug h L3-L4 and at L5-S1 as well as Modic type II signal change s at L4-L5. There is diffus e disc desicc ation and loss of interv ertebr al disc height . There are multip le there is multil evel facet arthro renato. No suspic ious marrow lesion s. CONUS: The conus is normal in signal and contou r, with normal level of termin ation at L1. There is no abnorm al enhanc ement. PARASP INAL TISSUE S: There is atroph y of the academic dean ior parasp inal muscul ature. Multip le partia lly imaged renal cysts, dedica sagrario follow -up. DETAIL ED FINDIN GS BY LEVEL: L1-L2: Minima l disc bulge, ligame ntum flavum thicke trista, and facet arthro renato. No signif icant canal stenos is. There is again minima l bilate ral neural forami nal narrow ing. L2-L3: Diffus e disc bulge, ligame ntum flavum thicke trista, and facet arthro renato. Mild narrow ing of the spinal canal and bilate ral neural forami na. L3-L4: Diffus e disc bulge, ligame ntum flavum thicke trista, and facet arthro renato. There is now also a superi mposed right parace ntral protru singh which abuts the john sing right L4 nerve roots, new. There is mild spinal canal narrow ing. There is mild left and mild to modera te right neural forami nal narrow ing, not signif icantl y change d. L4-L5: Diffus e disc bulge, ligame ntum flavum thicke trista, and facet arthro renato. There is no signif icant canal stenos is. There is again mild to modera te bilate ral neural forami nal narrow ing. L5-S1: Diffus e disc bulge. Facet arthro renato. No signif icant canal stenos is. There is minima l bilate ral neural forami nal narrow ing. IMPRES SINGH: Multil evel degene rative change s of the lumbar spine as descri bed above. There is a new right parace ntral disc protru singh at L3-L4 abutti ng the john sing right L4 nerve roots. No new suspic ious marrow lesion s. Electr onical ly Signed By: Stacie lange MD [email or web address] [facility] [address] [facility] [place] [address], 05/05/2024 14:29:36 Result Notes None recorded. Problems Name Problem SNOMED Code Status Onset Date Resolution Date Notes Provider Name and Address Organization Details Recorded Time Lumbar radiculopat hy 010146698 Active 2023 COLEEN roman [place] - [facility] 4 09:58:25 Osteoarthri tis of left hip joint 7425596217828 08 Active 2024 Brannon Benson MD [address], [facility] [place], [address], [facility] 17:13:47 Osteoarthri tis of left knee joint 3766235396926 09 Active 2024 Raissa martinez PA-C [address], [place], [address], [facility] 10:57:49 Problem Notes None recorded. Procedures Surgical History Date Name Laterality Status Provider Name and Address Organization Details Recorded Time 07/20/2024 JZKNEE INJ completed Raissa Mancilla PA-C [address], [place], [address], [facility] 07/20/2024 10:57:41 01/28/2024 JZKNEE INJ completed Raissa Mancilla PA-C [address], [place], [address], [facility] 01/28/2024 15:41:55 10/28/2023 JZKNEE INJ completed Raissa Mancilla PA-C [address], [place], [address], [facility] 10/28/2023 14:21:09 Imaging Results None recorded. Procedure Notes None recorded. Medical Equipment None Reported. Allergies Allergen ID Allergen Name Allergen Category Reaction Reaction Severity Criticality Documentation Date Start Date Code Code System Note Provider Name and Address Organization Details Recorded Time 362595 Non-stero idal anti-infl ammatory agent (product) medicatio n Not available Not available Not available 04/30/2024 76833 005 SNOMED Caridad lizama [facility] 13:40:03 Medications Name Sig Start Date Stop Date Status Note LastModified by Organization Details LastModified Time freestyle lite test strips strp active Not Available Not Available Not Available amoxicillin 500 mg capsule active Not Available Not Available N ot Available latanoprost 0.005 % eye drops active Not Available Not Available Not Available cefuroxime axetil 250 mg tablet active Not Available Not Available Not Available prednisone 20 mg tablet active Not Available Not Available No t Available tramadol 50 mg tablet active Not Available Not Available Not Available carvedilol 3.125 mg tablet active Not Available Not Availa ble Not Available levothyroxine 75 mcg tablet active Not Available Not Availabl e Not Available lorazepam 0.5 mg tablet active Not Available Not Available No t Available levothyroxine 50 mcg tablet active Not Available Not Availabl e Not Available simvastatin 20 mg tablet active Not Available Not Available No t Available lidocaine 5 % topical patch active Not Available Not Availabl e Not Available gabapentin 100 mg capsule active Not Available Not Available N ot Available lorazepam 1 mg tablet active Not Available Not Available Not Available glipizide 5 mg tablet active Not Available Not Available Not Available cyclosporine 0.05 % eye drops in a dropperette active Not Available Not Available Not Available diclofenac 1 % topical gel active Not Available Not Available Not Available Vitals Date Recorded Body height Provider Name an d Address Organization Details Last Updated DateTime 04/27/2024 157.48 cm OMEGA RODARTE [facility] 04/27/2024 14:18:22 Date Recorded Body height Body mass index (BMI) Body weight Provider Name and Address Organization Details Last Updated DateTime 04/27/2024 157.48 cm 34.5 kg/m2 25309.8 g NEELIMA CABALLERO [place] [facility] 04/27/2024 11:30:50 Date Recorded Body height Body mass index (BMI) Body weight Provider Name and Address Organization Details Last Updated DateTime 04/30/2024 154.94 cm 35 kg/m2 46429.59 g Caridad Ferreira [facility] 04/30/2024 13:36:54 Date Recorded Body height Body mass index (BMI) Body weight Provider Name and Address Organization Details Last Updated DateTime 07/20/2024 154.94 cm 35 kg/m2 70203.59 g Carolina Balderrama [facility] 07/20/2024 10:42:25 Date Recorded Body height Body mass index (BMI) Body weight Provider Name and Address Organization Details Last Updated DateTime 01/28/2024 160.02 cm 34.9 kg/m2 22537.7 g Jesus Medel [facility] 01/28/2024 12:52:10 Social History None recorded. Functional Status None recorded. Mental Status None recorded. Family History Nothing Reported. Medical History No medical history recorded. Gynecological HistoryNo gynecological history recorded. Obstetrics History GPAL:G 0 P 0 0 0 0 Past Encounters Encounter ID Performer Location Encounter Start Date Encounter Closed Date Diagnosis/Indication Diagnosis SNOMED-CT Code Diagnosis ICD10 Code Diagnosis Note [id number] Ulises Smith MD [place] [address] [place], [place] [address] 09/19/2023 08:48:43 10/16/2023 14:03:11 Lumbar radiculopathy 677032602 M54.16 [id number] Ulises Smith MD [place] [address] [place], [place] [address] 10/18/2023 08:52:55 11/12/2023 15:26:18 Lumbar radiculopathy 893310067 M54.16 [id number] Raissa shaw PA-C [facility] [address] [place], [place] [address] 10/28/2023 08:21:57 11/19/2023 15:47:54 Pain of left knee joint 8454510855 54955 M25.562 Osteoarthr itis of left knee joint 8556272993 48437 M17.12 [id number] Raissa shaw PA-C [facility] [address] [place], [place] [address] 01/28/2024 12:36:45 02/12/2024 12:01:15 Osteoarthritis of left knee joint 1307638827 32089 M17.12 [id number] Raissa shaw PA-C [facility] [address] [place], [place] [address] 04/27/2024 10:51:13 05/11/2024 10:05:32 Osteoarthritis of left knee joint 5808600736 06619 M17.12 Osteoarthr itis of left hip joint 9665863705 95554 M16.12 Ulises Smith MD [facility] [place] [address] [place] [address] 04/27/2024 14:08:58 05/11/2024 15:42:47 Lumbar radiculopathy 521691217 M54.16 [id number] MD [facility] [address] [place] [address] 04/30/2024 13:19:05 05/11/2024 14:24:10 Osteoarthritis of left hip joint 7526846376 98526 M16.12 [id number] WILL[facility] [address] [place] [address] 07/20/2024 10:28:50 07/20/2024 10:58:25 Osteoarthritis of left knee joint 6339626846 58427 M17.12 Health Concerns Section Related Observation LastModified by Organization Detai ls LastModified Time None Recorded Concern Status LastModified by Organization Details LastModified Time None Recorded Advance Directives Directive None Recorded Payers Encounter Date Sequence Insurance Name Policy Number Policy Reyes Covered Member ID Reyes Member ID Guarantor Name 01/28/2024 1 [employer] MED[employer] PLAN (MEDICARE REPLACEMENT HMO) [id number] 1 Merly Pérez Canedy [id number] Merly Canedy 04/27/2024 1 [employer] MED[employer]VANTAGE PLAN (MEDICARE REPLACEMENT HMO) [id number] 1 Merly Pérez Canedy [id number] Merly Canedy 04/27/2024 1 [employer]AGE PLAN (MEDICARE REPLACEMENT HMO) [id number] 1 Merly Pérez Canedy [id number] Merly Canedy 04/30/2024 1 [employer]AGE PLAN (MEDICARE REPLACEMENT HMO) [id number] 1 Merly Beto Canedy [id number] Merly Canedy 07/20/2024 1 [employer] PLAN (MEDICARE REPLACEMENT HMO) [id number] 1 Merly Pérez Canedy [id number] Merly Canedy Notes Date Note Type Note Provider Name and Address Organization Details Recorded Time 01/28/2024 text/html I am seeing the patient today under the supervision of Dr. Adair Who was available but who did not see the patient.HPI: 78-year-old woman presents for evaluation of left knee pain. Symptoms have been better following cortisone injection in October 2023. She noticed recent onset of recurrent pain in her left knee and is requesting a repeat cortisone injection today.Past family, medical, social history and review of systems have been reviewed and updated on the medical history sheet saved to the patient's chart. Review of systems is negative except as noted above and/or on the medical history sheet.Examination: The patient is well appearing and in no apparent distress. Alert and oriented x3. Left knee exam demonstrates mild effusion. Exquisitely point tender over medial joint line. Mild tenderness lateral joint line. Extensor mechanism intact without lag. 5/5 strength. Knee range of motion 0-120? ? ? flexion. Knee is ligamentously stable. Negative Patricia. No crepitus. Peripheral vascular, lymphatic examination, skin, neurological, coordination, sensation are within normal limits unless otherwise noted above.X-rays ordered, obtained and reviewed at [facility] 4 views left knee demonstrate bone on bone articulation medial compartment, subchondral sclerosis, tricompartmental osteophyte formationImpression: End-stage osteoarthritis left kneePlan: Treatment options reviewed at length with the patient. She would like to proceed with reppeat cortisone injection today for her left knee. She will follow up with me in 3 months for a recheck and will call sooner with any difficulty. Questions answered.[employer] speech recognition full stack python developer software was used to create portions of this document. An attempt at proofreading has been made to minimize errors. Please call for corrections. Raissa Mancilla PA-C [address] [facility] [address], [place], [address], [facility] - [facility] 01/28/2024 15:42:24 04/27/2024 text/html HPI: 78-year-old female presents with longstanding low back and radiating left leg pain. Seen previously for similar symptoms here 6 months ago. If anything her symptoms have worsened. She has had multiple injections primarily directed at her hip and knee arthrosis. Knee injections have been helpful. Hips not so much. She went to [place] pain management. Some spine injections were performed with minimal benefit. Reports back pain worse than leg pain but leg pain progressive when she walks. Consistent with neuro claudication. No bowel or bladder complaints WORK STATUS: Retired [employer] has been reviewed, updated, and is located in the patient's chart RADIOGRAPHS: Lumbar spine MRI performed last October notable for spondylosis without evidence of ongoing nerve root compression at any level. PHYSICAL EXAMINATION: Ulises Smith MD [address], [place], [address], [place] [facility] 04/27/2024 15:45:02 04/27/2024 text/html I am seeing the patient today under the supervision of Dr. Solano Who was available but who did not see the patient.HPI: 78-year-old woman presents for evaluation of left knee pain. Symptoms have been better following cortisone injection in January 2024. She noticed recent onset of recurrent pain in her left knee and is requesting a repeat cortisone injection today. She complains of pain across her low back and in her left leg today. She has been seen at [facility]. She reports she had multiple lumbar injections in the left hip intra-articular injection. The intra-articular hip injection gave her the most relief however unfortunately only worked for 4 days. She reports that [facility] told her there was nothing more that they could do and recommended that she see an orthopedic surgeon. Complains of a band of pain across her low back, pain radiating down her left leg, and also pain in her left hip.Past family, medical, social history and review of systems have been reviewed and updated on the medical history sheet saved to the patient's chart. Review of systems is negative except as noted above and/or on the medical history sheet.Examination: The patient is well appearing and in no apparent distress. Alert and oriented x3. Left knee exam demonstrates mild effusion. Exquisitely point tender over medial joint line. Mild tenderness lateral joint line. Extensor mechanism intact without lag. 5/5 strength. Knee range of motion 0-120? ? ? flexion. Knee is ligamentously stable. Negative Patricia. No crepitus. Peripheral vascular, lymphatic examination, skin, neurological, coordination, sensation are within normal limits unless otherwise noted above. Left hip exam with pain at end ranges of hip rotation, positive impingement test, positive Stinchfield test.X-rays ordered, obtained and reviewed at [facility] 4 views left knee demonstrate bone on bone articulation medial compartment, subchondral sclerosis, tricompartmental osteophyte formation Previous radiographs of the left hip from 2023 Independently reviewed by me today 2 views left hip which reveal moderate to severe degenerative changes about left hip joint consistent with osteoarthritisImpressio n: End-stage osteoarthritis left knee, Left hip osteoarthritisPlan: Treatment options reviewed at length with the patient. She would like to proceed with repeat cortisone injection today for her left knee. She will follow up with me in 3 months for a recheck and will call sooner with any difficulty. Questions answered. Using meticulous aseptic technique, after discussing risks and obtaining verbal consent, patient's left knee was injected with 4 cc of 0.25% Marcaine and 1 cc of Kenalog 40 mg. Patient tolerated this well, sterile bandage applied, postinjection precautions reviewed. I recommended a surgical consultation regarding her left hip to discuss total hip arthroplasty. Questions answered.[employer] speech recognition full stack python developer software was used to create portions of this document. An attempt at proofreading has been made to minimize errors. Please call for corrections. Raissa Mancilla PA-C [address] [place] [address] [address] [facility] [place], [place], [address], [facility] 05/11/2024 09:57:29 07/20/2024 text/html I am seeing the patient today under the supervision of Dr. Sue Khan was available but who did not see the patient. Chief Complaint The patient presents today for follow-up evaluation regarding the Left knee osteoarthritis. Is known to have knee arthritis treated conservatively to this point with relief of symptoms. Past Medical/Surgical History Reviewed today, otherwise unchanged per intake sheet. Physical Findings General Appearance: Mild antalgic gait Knee exam findings note: restrictions are range of motion with pain at extremes, tenderness to palpation involving medial and lateral compartment with mild crepitance, trace effusion, extensor mechanism intact, no instability. Assessment ? Osteoarthritis of Left knee Plan I discussed with the patient today regarding their knee condition to include all treatment options, conservation and operative, to include total knee replacement surgery which after further discussion, the patient does not wish to pursue any type of operative intervention. In regards to the patient's knees today, I have recommended continued conservative treatment with use of tylenol, possible use of antiinflammatories as well as possibility of intraarticular cortisone injections for which they wish to go forth with. Follow up with us in 3 months for further discussion of total knee replacement surgery versus continued conservative treatment. Raissa Mancilla PA-C [address], [place], [address], [facility] - [facility] 07/20/2024 10:58:23 OBGyn Episode No OBEpisode recorded.
--- NOTE | 2024-07-28 15:13 | MHC.PC.OV ---
Vital Signs 07/28/24 15:16 Height 5 ft 2 in Weight 179 lb 0.4 oz BMI 32.7 BP 144/82 H Blood Pressure Location Rt brachial Pulse 72 Pulse Source Pulse Oximeter Temp 97.8 F Pulse Oximetry (%) 98 Intake Visit Reasons: establish care Intake Note: Having left hip done on August 31 and this is her first surgery and is nervous about it. Allergies oxycodone [OXYCODONE] Allergy (Severe, Verified 07/28/24 16:01) N/V aspirin [ASPIRIN] Allergy (Intermediate, Verified 07/28/24 16:01) GI UPSET/BLEEDING latex [LATEX] Allergy (Intermediate, Verified 07/28/24 16:01) RASH NSAIDS (Non-Steroidal Anti-Inflamma [NSAIDS (NON-STEROIDAL ANTI-INFLAMMA] Allergy (Intermediate, Verified 07/28/24 16:01) GI UPSET/BLEEDING naproxen [From Aleve] Allergy (Verified 07/28/24 16:01) Diarrhea Medication List - Last Reconciled 07/28/24 by Trini Araujo PA-C ascorbic acid (vitamin C) ER 1,000 mg PO DAILY carvedilol (Coreg) 3.125 mg PO BID 90 days diclofenac sodium 1% (Arthritis Pain (diclofenac)) 4 grams topical QID 30 days glipizide 5 mg PO BID latanoprost 0.005% 1 drp ophthalmic (eye) DAILY levothyroxine 75 mcg PO .QOD levothyroxine 50 mcg PO .QOD lidocaine 5% 2 patches topical DAILY PRN 30 days lorazepam 1 mg PO ONCE PRN multivitamin 1 tab PO DAILY simvastatin 20 mg PO BEDTIME HPI establish care HPI Details The patient is a 78-year-old female presenting to [facility] and to discuss her upcoming left hip surgery due to osteoarthritis. The patient's medical history is significant for anxiety, which she manages with a reduced dosage of lorazepam, and type 2 diabetes mellitus, with a previous hemoglobin A1c of 7.1 managed with glipizide. There is a history of cardiovascular issues, including aortic valve sclerosis, right bundle branch block, and a recently detected heart murmur. She also has chronic conditions including lumbar spondylosis and colitis, which have not caused recent significant symptoms. Her surgical history includes an upcoming procedure, with an echocardiogram scheduled, and mentions coordination with orthopedic surgeon Dr. Brannon Renteria for preoperative evaluations. The patient has been compliant with routine health screenings, having a recent mammogram and bone density scan, and her last colonoscopy was in 2019. Social History - No discussion of employment or family status. - No mention of substance use. - Reports having reduced lorazepam usage for anxiety management. - Has a patient portal for healthcare management but does not need to sign up for another. [facility] Medical History (Updated 07/28/24 @ 16:06 by Trini Araujo PA-C) Class 1 obesity with body mass index (BMI) of 32.0 to 32.9 in adult History of mammogram (~07/15/24) Cough Establishing care with new doctor, encounter for Anxiety GI bleed Surgical History History of colonoscopy (~07/08/19) S/P tooth extraction Family History Father S/P CABG x 4 Stroke Heart attack Heart disease Mother Cancer Paternal Uncle Heart disease Diabetes Paternal Uncle Heart disease Daughter Multiple sclerosis Paternal Grandmother Diabetes Maternal Grandfather Stomach cancer Social History Alcohol intake: current Alcohol intake frequency: holidays/special occasions only Patient Tobacco Use Status: Former Tobacco user Questionnaire PHQ-9 Over the last 2 weeks, how often have you been bothered by any of the following problems? 1. Little interest or pleasure in doing things: more than half the days 2. Feeling down, depressed, or hopeless: more than half the days 3. Trouble falling or staying asleep, or sleeping too much: not at all 4. Feeling tired or having little energy: more than half the days 5. Poor appetite or overeating: not at all 6. Feeling bad about yourself - or that you are a failure or have let yourself or your family down: not at all 7. Trouble concentrating on things, such as reading the newspaper or watching television: not at all 8. Moving or speaking so slowly that other people could have noticed. Or the opposite - being so fidgety or restless that you have been moving around a lot more than usual: not at all 9. Thoughts that you would be better off or of hurting yourself in some way: not at all Total score: 6 Depression Screening Interpretation: Positive Depression Screening Follow-up: Existing condition and In treatment Depression Screening Done: Yes 21784 - PHQ-9 Billing: Yes Source: Developed by Drs. Ulises Thomas, Adry Ochoa, Cruz Oreilly and colleagues, with an educational lorenzo from [employer]. Thrive Questionnaire Date Thrive assessed: 07/28/24 I am a: Patient What is your living situation today?: I have a steady place to live Within the past 12 months, did the food you bought not last and you didn't have the money to get more?: Never true Within the past 12 months, did you worry whether your food would run out before you got money to buy more?: Never true Do you have trouble paying for medicines?: No Do you have trouble getting transportation to medical appointments?: No Do you have trouble paying your heating and electricity bill?: No Do you have trouble taking care of your child, family member or friend?: No Do you have trouble with day-to-day activities such as bathing, preparing meals, shopping, managing finances, etc.?: No Are you currently unemployed and looking for a job?: No Are you interested in more education?: No THRIVE Score: 0 AUDIT C Alcohol Use Questionnaire (AUDIT-C) 1. How often do you have a drink containing alcohol?: Never 3. How often do you have six or more drinks on one occasion?: Never Total Score: 0 Score Reviewed/Action Taken: No MALLY-7 AMB Questionnaire MALLY-7 Date MALLY - 7 assessed: 07/28/24 Feeling nervous, anxious, or on edge: 3 = Nearly every day Not being able to stop or control worryin = Nearly every day Worrying too much about different things: 3 = Nearly every day Trouble relaxin = Nearly every day Being so restless that it is hard to sit still: 0 = Not at all Becoming easily annoyed or irritable: 0 = Not at all Feeling afraid as if something awful might happen: 2 = More than half the days Total MALLY-7 score (0-4 normal; 5-9 mild; 10-14 moderate; 15-21 severe): 14 Source: Developed by Drs. Ulises Thomas, Adry Ochoa, Cruz Oreilly and colleagues, with an educational lorenzo from [employer]. MALLY-7 Assessment Billing MALLY-7 Assessment Tool: MALLY-7 Assessment 91208 Review of Systems Const Details: - Cardiovascular: Reports allergies for the past month. - Respiratory: Denies shortness of breath, spitting up blood, or excessive mucus; Reports intermittent wheezing. - Gastrointestinal: Denies abdominal pain. - Musculoskeletal: Reports chronic back pain; Notes osteoarthritis affecting the hips. - Neurological: Denies new-onset headaches or changes in cognition. - Psychological: Reports anxiety, butterflies in the abdomen, and recent anxiety attacks; Denies need for new psychiatric consultation. Physical exam (Primary Care) Vital Signs: Last Vital Signs Temp 97.8 F 07/28/24 15:16 Pulse 72 07/28/24 15:16 BP 144/82 H 07/28/24 15:16 Pulse Ox 98 07/28/24 15:16 Care Plan Goal for BP management: <140/90 at Goal BMI result Body Mass Index 32.7 BMI Assessment/Plan discussion: High BMI High, discussed plan: lifestyle, weight reduction, dietary, physical activity and alcohol moderation Tobacco/Smoking Status: Tobacco use Status Patient Tobacco Use Status Former Tobacco user 07/28/24 15:15 PHQ-9: PHQ-9 Score PHQ-9: Total score 6 07/28/24 15:31 Depression Screening Interpretation: Positive Depression Screening Follow-up: Existing condition and In treatment Thrive Assessment: Date of Thrive Assessment Date Thrive assessed 07/28/24 07/28/24 15:31 Const Other: Appearance: Alert. Oriented X3. No acute distress. Head: Normal external exam. Normocephalic. Atraumatic. Eyes: Pupils are equal, round, and reactive to light. Extraocular movements intact. Conjunctiva and sclera normal. Eyelids normal. Ears: External auditory canal normal. Tympanic membranes normal. Throat: Pharynx normal. Uvula midline. Moist mucous membranes. Neck: Normal inspection. Neck supple. Full range of motion. No adenopathy. Thyroid Normal. No meningeal signs. No neck mass noted. Cardiovascular: Normal heart rate and rhythm. Heart sound normal. Heart murmur noted. Right bundle branch block noted. Pulses normal throughout. Respiratory: No respiratory distress. Painless inspiration. Breath sounds normal. No wheezes/rales/rhonchi noted. Chest nontender. No accessory muscle usage noted or decreased air movement noted. Abdomen: Soft and nontender. Back: No costovertebral angle tenderness. Full range of motion noted. Skin: Skin warm and dry. Normal skin color. Normal skin turgor. No rashes/lesions/lacerations noted. Extremities: No lower extremity edema. Extremities exhibit normal range of motion. Extremities nontender. Neuro: Oriented X 3. No motor deficit. No sensory deficit. Reflexes normal. Results Reviewed Results Reviewed: - Labs: Normal CBC, hemoglobin, hematocrit; Sodium level elevated at 146; Fasting glucose at 111 mg/dL; Total bilirubin mildly elevated at 1.1; AST elevated at 42. - Imaging/Procedures: Mammogram and bone density scan completed on July 15, 2022. Last colonoscopy on July 08, 2019. Coding Level of Care Code New Pt Level 4 (99458) Complex EM visit Add On G2211 Diagnoses Establishing care with new doctor, encounter for Z76.89 Anxiety F41.9 Aortic valve sclerosis I35.8 Osteoarthritis, hip, bilateral M16.0 Heart murmur R01.1 Right bundle branch block I45.10 Essential hypertension I10 Class 1 obesity with body mass index (BMI) of 32.0 to 32.9 in adult E66.811; Z68.32 Additional Codes PHQ-9 - 58286 - PHQ-9 Billing: Yes ([id number]) MALLY-7 Assessment Billing - MALLY-7 Assessment Tool: MALLY-7 Assessment 47742 ([id number]) Time Spent (min) 50 Assessment & Plan Assessment & Plan (1) Establishing care with new doctor, encounter for: Code(s): Z76.89 - Persons encountering health services in other specified circumstances Category: Medical (2) Anxiety: Code(s): F41.9 - Anxiety disorder, unspecified Category: Medical Plan: Plan includes continued use of lorazepam at a reduced dose. Referral to [facility] for medication management is in progress. Condition is chronic and stable continue to monitor. (3) Aortic valve sclerosis: Code(s): I35.8 - Other nonrheumatic aortic valve disorders Category: Medical Plan: Plan involves monitoring in coordination with cardiology for further advice. Immediate intervention is unnecessary. Condition is chronic and stable continue to monitor. (4) Osteoarthritis, hip, bilateral: Code(s): M16.0 - Bilateral primary osteoarthritis of hip Category: Medical Plan: Plan is underway for hip surgery with necessary preoperative evaluations. Condition is chronic and stable continue to monitor. (5) Heart murmur: Code(s): R01.1 - Cardiac murmur, unspecified Category: Medical Plan: Monitoring and correlation with existing valve diagnosis; preoperative cardiac clearance in progress. Condition is chronic and stable will continue to monitor. (6) Right bundle branch block: Code(s): I45.10 - Unspecified right bundle-branch block Category: Medical Plan: Monitoring per previous EKG findings; unlikely cause for immediate intervention. Condition is chronic and stable continue to monitor. (7) Essential hypertension: Code(s): I10 - Essential (primary) hypertension Category: Medical Plan: Blood pressure goal less than 140/90. Patient to continue carvedilol 3.125 mg b.i.d.. Condition is chronic and stable continue to monitor. (8) Class 1 obesity with body mass index (BMI) of 32.0 to 32.9 in adult: Code(s): E66.811 - Obesity, class 1; Z68.32 - Body mass index [BMI] 32.0-32.9, adult Category: Medical Plan: Patient to improve diet and exercise regimen. Condition is chronic and stable continue to monitor. Plan Plan Patient was informed and verbally consented to the use of an ambient scribe for clinic note documentation during this visit. 1. Anxiety Plan includes continued use of lorazepam at a reduced dose. Referral to [facility] for medication management is in progress. 2. Aortic Valve Sclerosis Plan involves monitoring in coordination with cardiology for further advice. Immediate intervention is unnecessary. 3. Osteoarthritis Plan is underway for hip surgery with necessary preoperative evaluations. 4. Chronic Lumbar Spondylosis Plan consists of pain management with topical treatments and periodic cortisone injections. 5. Heart Murmur Monitoring and correlation with existing valve diagnosis; preoperative cardiac clearance in progress. 6. Right Bundle Branch Block Monitoring per previous EKG findings; unlikely cause for immediate intervention. 7. Type 2 Diabetes Mellitus Reinforcement of medication adherence twice daily for improved glucose control. 8. Colitis Ongoing management with regular surveillance; no immediate need for colonic evaluation. 9. History Of Cancer Continued observation for recurrence, although currently asymptomatic. 10. Upcoming Left Hip Surgery Continuous coordination for surgical planning, ensuring appropriate clearance and readiness for the procedure. During the visit, I discussed with the patient her various chronic conditions and their management. We focused prominently on her anxiety management, adjusting her lorazepam use reflecting recent reductions in dosage. We explored her aortic valve sclerosis and heart murmur, reviewing preoperative clearance steps for the scheduled hip surgery. The patient's diabetes management was adjusted to optimize control, and reinforcement of using medication effectively was emphasized. I advised pre-surgical testing set by Dr. Renteria to ensure no overlap in evaluations. Further, I recommended an upcoming hemoglobin A1c level assessment in September after her procedure. Coordination with the orthopedic surgeon aims for a smooth surgical process, as we assist in readiness for upcoming medical engagements and intervention like the chest x-ray to utilize cautious pre-surgical framework. Orders: Orders XR chest 2V Today R05.9 - Cough, unspecified Patient Instructions: - Follow through with preoperative appointments and tests, including echocardiogram scheduled for August 27. - Continue prescribed medications, emphasizing taking glipizide twice daily to manage blood sugar. - Prepare for hip surgery on August 31 by completing all necessary preoperative testing and communications. - Call and schedule an appointment for your routine follow-up visit in September after surgery for diabetes and overall health management. - If symptoms like severe breathing difficulty, chest pain, or significant changes in anxiety occur, seek medical attention immediately. - Follow instructions for getting chest x-ray done at your convenience. - Keep in touch via the patient portal for any changes or questions related to medications and future tests.
[2024-07-28 15:16] VITALS: BP 144/82; PULSE 72; TEMP 36.6; O2SAT 98; BMI 32.7
== END 2024-07-28 15:58 | disposition home or self-care (01) ==
LOC: HO.HMCSH 14:33
PROVIDERS: PCP Internal Medicine; Visit Provider Physician Assistant Medical
DX: Z76.89 Persons encountering health services in other specified circumstances (principal); F41.9 Anxiety disorder, unspecified; I35.8 Other nonrheumatic aortic valve disorders; M16.0 Bilateral primary osteoarthritis of hip; R01.1 Cardiac murmur, unspecified; I45.10 Unspecified right bundle-branch block; I10 Essential (primary) hypertension; E66.811 Obesity, class 1; Z68.32 Body mass index [BMI] 32.0-32.9, adult

== ENCOUNTER → 2024-07-28 14:33 | Outpatient (BNVA) | payer MEDICARE, SELFPAY | PROVIDERS: PCP Internal Medicine; Visit Provider Physician Assistant Medical | DX: M16.0 Bilateral primary osteoarthritis of hip (principal); I35.8 Other nonrheumatic aortic valve disorders; I45.10 Unspecified right bundle-branch block; R01.1 Cardiac murmur, unspecified; I10 Essential (primary) hypertension; E66.811 Obesity, class 1; M47.816 Spondylosis without myelopathy or radiculopathy, lumbar region; E11.9 Type 2 diabetes mellitus without complications; K52.9 Noninfective gastroenteritis and colitis, unspecified; Z68.32 Body mass index [BMI] 32.0-32.9, adult; Z76.89 Persons encountering health services in other specified circumstances | CPT/HCPCS: 96127; 99202 ==

== ENCOUNTER 2024-07-29 11:30 | Emergency (ER) | payer MEDICARE, SELFPAY ==
--- NOTE | ~2024-07-29 | CT_ITS ---
EXAMINATION: CT ABDOMEN PELVIS WITHOUT IV CONTRAST HISTORY: R flank pain COMPARISON: Comparison is made with the prior examination dated 05/28/2022. TECHNIQUE: CT scan of the abdomen and pelvis was performed without contrast using standard departmental protocol. Coronal and sagittal reformatted images were generated and reviewed. Oral contrast material was not administered per department protocol. This CT exam was performed with one or more of the following dose reduction techniques: automated exposure control, adjustment of the mA and/or kV according to patient size, use of iterative reconstruction technique. DLP: 590 mGy-cm FINDINGS: LOWER CHEST: The visualized lung bases are clear. There is no pleural effusion. CARDIOVASCULATURE: The heart is normal in size. There is no pericardial effusion. LIVER: The liver is normal in size and contour. The liver has an unremarkable unenhanced appearance. GALLBLADDER / BILE DUCTS: The gallbladder is unremarkable. There is no intra or extrahepatic biliary ductal dilatation. SPLEEN: The spleen is normal in size and has an unremarkable unenhanced appearance. PANCREAS: The pancreas has an unremarkable unenhanced appearance. ADRENAL GLANDS: Unremarkable. KIDNEYS/RETROPERITONEUM: There are nonobstructing calculi at the upper and lower poles of the right kidney measuring up to 2 mm in size. There is moderate right hydronephrosis and hydroureter to the level of a 3 mm UVJ calculus. No left renal calculi are identified. There is no left hydronephrosis. Again seen is a 5.0 cm cyst at the lower pole of the right kidney. LYMPH NODES: No retroperitoneal lymphadenopathy is identified in the abdomen or pelvis. VASCULATURE: The abdominal aorta demonstrates atherosclerotic calcification, but is normal in caliber. MESENTERY/PERITONEUM: No free fluid. No masses. There is no free intraperitoneal gas. STOMACH: The stomach is collapsed, limiting evaluation. SMALL BOWEL: The small bowel is normal in caliber. COLON: There is diverticulosis of the sigmoid colon, without evidence of diverticulitis. APPENDIX: Normal. URINARY BLADDER/PELVIC ORGANS: The urinary bladder is collapsed, limiting evaluation. The uterus has an unremarkable unenhanced appearance. BONES / SOFT TISSUES: There is degenerative disc disease of the spine. CT/CT abdomen pelvis wo IV con IMPRESSION: Moderate right hydroureteronephrosis secondary to a 3 mm UVJ calculus. Right nephrolithiasis as described. Electronically signed by: Ulsies Lynne MD 07/29/2024 12:33 PM EDT RP
[2024-07-29 11:54] VITALS: BP 190/72; PULSE 80; RESP 16; TEMP 36.6; O2SAT 100; BMI 32.9
--- NOTE | 2024-07-29 11:54 | ED_ITS ---
HPI - Abdominal Pain General Chief Complaint: Abdominal Pain Stated Complaint: R Side Pain/ Back Pain Time Seen by Provider: 07/29/24 12:46 Source: patient Mode of arrival: ambulatory Limitations: no limitations History of Present Illness ED Provider: Lois Chavez PA-C HPI narrative: 78 year old female with a past medical history of hypertension, type 2 diabetes, and bilateral osteoarthritis presents to the ED with a chief complaint of RLQ pain that radiates to the right flank. 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 Patient states that when she urinates it does not feel complete, and she keeps getting the urge to have a bowel movement and then is unable to void. She reports her last bowel movement was yesterday, with no changes to her stool or blood present. Patient states that she forgot to take her blood pressure medication today. She denies SOB, chest pain, nausea, or vomiting. MD elicited complaint: abdominal pain and flank pain Onset (ago): hour(s) Pain Consistency: constant Location: RLQ, R flank and suprapubic Exacerbating factors: nothing Relieving factors: nothing Associated symptoms: denies other symptoms Related Data Home Medications ?Medication ?Instructions ?Recorded ?Confirmed latanoprost 0.005 % eye drops 1 drp ophthalmic (eye) DAILY 06/12/21 07/28/24 levothyroxine 50 mcg tablet 50 mcg PO .QOD 06/12/21 07/28/24 levothyroxine 75 mcg tablet 75 mcg PO .QOD 06/12/21 07/28/24 simvastatin 20 mg tablet 20 mg PO BEDTIME 06/12/21 07/28/24 glipizide 5 mg tablet 5 mg PO BID 09/10/22 07/28/24 ascorbic acid (vitamin C) 1,000 mg 1,000 mg PO DAILY 09/12/23 07/28/24 tablet,extended release lorazepam 0.5 mg tablet 1 mg PO ONCE PRN 07/28/24 07/28/24 multivitamin 1 tab PO DAILY 07/28/24 07/28/24 Previous Rx's ?Medication ?Instructions ?Recorded diclofenac sodium 1 % topical gel 4 g topical QID pain 30 days #100 10/04/22 (Arthritis Pain (diclofenac)) grams lidocaine 5 % topical patch 2 patch topical DAILY PRN pain 30 06/03/23 days #60 ea carvedilol 3.125 mg tablet (Coreg) 3.125 mg PO BID 90 days #180 tabs 10/25/23 prednisone 10 mg tablet 10 mg PO DAILY 5 days #5 tabs 07/29/24 tamsulosin 0.4 mg capsule 0.4 mg PO DAILY #7 caps 07/29/24 Allergies Allergy/AdvReac Type Severity Reaction Status Date / Time oxycodone [OXYCODONE] Allergy Severe N/V Verified 07/29/24 11:57 aspirin [ASPIRIN] Allergy Intermediate GI Verified 07/29/24 11:57 UPSET/BLEEDING latex [LATEX] Allergy Intermediate RASH Verified 07/29/24 11:57 NSAIDS (Non-Steroidal Allergy Intermediate GI Verified 07/29/24 11:57 Anti-Inflamma UPSET/BLEEDING [NSAIDS (NON-STEROIDAL ANTI-INFLAMMA] naproxen [From Aleve] Allergy Diarrhea Verified 07/29/24 11:57 Review of Systems Constitutional: Reports no additional constitutional complaints, Denies chills, Denies fever(s) and Denies night sweats Eyes: Reports no additional eye complaints, Denies blurry vision, Denies change in vision, Denies diplopia, Denies eye discharge, Denies loss of vision and Denies eye pain Denies dizziness Cardiovascular: Reports no additional cardiovascular complaints, Denies chest pain, Denies lightheadedness, Denies Loss of Consciousness and Denies dyspnea Respiratory: Reports no additional respiratory complaints and Denies dyspnea Gastrointestinal: Reports no additional gastrointestinal complaints, Reports abdominal pain, Denies melena, Denies hematochezia, Denies change in bowel habits and Denies change in stool character Genitourinary: Denies hematuria, Denies urinary frequency, Reports difficulty voiding, Denies dysuria, Denies urinary incontinence, Denies urinary hesitancy and Denies urinary urgency Comments: right flank pain Musculoskeletal: Reports no additional musculoskeletal complaints, Denies numbness and Denies tingling Denies dizziness, Denies loss of vision, Denies numbness and Denies tingling Psychiatric: Reports no additional psychiatric complaints Endocrine: Reports no additional endocrine complaints Hematologic/Lymphatic: Reports no additional hematologic/lymphatic complaints Allergic/Immunologic: Reports no additional allergic/immunologic complaints PMFSH Past Medical History Attestation statement: The following information was validated with the patient. Source: old records reviewed and nursing notes reviewed Medical History Class 1 obesity with body mass index (BMI) of 32.0 to 32.9 in adult History of mammogram (~07/15/24) Cough Establishing care with new doctor, encounter for Anxiety GI bleed Surgical History History of colonoscopy (~07/08/19) S/P tooth extraction Family History Family History Father S/P CABG x 4 Stroke Heart attack Heart disease Mother Cancer Paternal Uncle Heart disease Diabetes Paternal Uncle Heart disease Daughter Multiple sclerosis Paternal Grandmother Diabetes Maternal Grandfather Stomach cancer Social History Social History Alcohol intake: current Alcohol intake frequency: holidays/special occasions only Patient Tobacco Use Status: Former Tobacco user Smoked in Last 30 Days: No Use of substances other than those prescribed or required for medical reasons: No Advance Directives: No Advance Directives Information Provided: Yes Do you have a plan to hurt others: No Plan Patient : No Physical Exam ED Vital Signs: Vital Signs - 24 hr 07/29/24 11:54 07/29/24 14:35 07/29/24 15:36 Temperature 97.8 F 98.9 F Pulse Rate 80 86 85 Respiratory Rate 16 18 Blood Pressure 190/72 H 189/90 H 171/55 H Pulse Oximetry 100 98 Oxygen Delivery Method Room Air Room Air 07/29/24 15:44 Temperature 98.9 F Pulse Rate 85 Respiratory Rate 18 Blood Pressure 171/55 H Pulse Oximetry 98 Oxygen Delivery Method Room Air BMI result Body Mass Index 32.9 Const General: cooperative, no acute distress, alert and awake Nutritional Appearance: well nourished Orientation/consciousness: patient oriented x3 Limitations: no limitations HENMT Head: Yes normal to inspection and Yes atraumatic Ears: hearing grossly normal bilaterally and external ears normal General nose exam: Normal external nose present, no nasal discharge noted and no epistaxis Face and sinus: Yes normal facial exam, No abrasion and No laceration Mouth: Normal oral and palatal mucosa present, no drooling and no muffled voice Eyes General: appearance normal, both eyes and all related structures Periorbital: periorbital findings normal Eyelids: Yes eyelids normal Conjunctivae: conjunctivae normal Pupils: Equal, round and reactive pupils present EOM: EOMs intact bilaterally Neck Neck: Yes normal visual inspection, Yes full ROM and Yes no lymphadenopathy Resp Effort & Inspection: normal respiratory effort and able to speak in complete sentences GI Inspection: Yes normal to inspection Palpation (GI): Soft to palpation, not firm, nontender, no guarding and not rigid Neuro General: patient oriented x3 and moves all extremities Cranial nerves: Yes Equal, round and reactive pupils present Cognition (Neuro): normal cognition Extrem General: Yes normal to inspection, Yes full ROM and Yes capillary refill normal Psych Appearance: grossly normal Mental Status: mental status grossly normal Affect: normal affect Attitude: cooperative Thought process: Normal thought process present Thought content: Normal thought content present Insight: Good insight present (Psych) Course Course Course Narrative: 78 yo female with PMH of RBBB, obesity, lumbar radiculopathy, HTN, DM, hypothyroidism, arthritis due for L hip replacement NEOS 08/31 with abrupt onset R back and low abdominal pain, no n/v/d, no fevers, no dysuria. She has no b/b incontinence, no saddle anesthesia. She notes it is 8/10. She is not on blood thinners. It hurts to move and walk. Labs and urine ordered, CT scan this is a RAPID medical screening exam the rest of the history and physical exam is to be done by the main provider. TRISTAN 07/29/24 1158am Medical Decision Making Medical Decision Making [facility] Narrative: Patient is a 78 year old assigned female at with a history of anxiety, HTN, and aortic valve sclerosis presenting to the emergency department today with right sided abdominal and flank pain. Patient's physical exam was as noted in the physical exam portion of this note. Patient's blood work showed an elevated WBC count of 12 but was otherwise unremarkable. Patient's urine showed no evidence of infection but did show blood. Patient's CT abd/pelvis showed moderate right hydroureteronephrosis secondary to a 3 mm UVJ calculus. I spoke with the urologist who recommended discharge home with tamsulosin and prednisone. I explained my physical exam findings as well as all test results to the patient. I answered all questions asked by the patient. I stressed the importance of the patient taking her medication as directed (either prescribed or as the over the counter packaging recommends). I stressed the importance of the patient following up with her primary care provider and urology. I stressed the importance of the patient returning to the emergency department immediately if her symptoms were to worsen or if she were to develop any dizziness, shortness of breath, difficulty breathing, chest pain, blurry vision, loss of vision, nausea, vomiting, abdominal pain, fever, chills, back pain, or any other complaints. Patient verbalized agreement and understanding with this treatment plan and discharge. Differential Diagnosis Differential Diagnoses: The differential diagnosis associated with the presentation includes Kidney stone UTI Abd pain Admission/Observation Consideration of admission/observation: Escalation of care including admission/observation considered Patient would have been admitted to the hospital had her work up had any findings where hospital admission was appropriate and her clinical presentation warranted hospital admission. Consult Healthcare Provider Management of the patient was discussed with: Ball Racker (I spoke with the urology team as noted in the MDM Rationale portion of this note.) Lab Data [facility] Lab Attestation statement: I reviewed the patient's lab results. My interpretation of these results are in the MDM Rationale portion of this note. 07/29/24 13:14 07/29/24 13:14 Labs: Lab Results 07/29/24 07/29/24 Range/Units 13:14 14:05 WBC 12.0 H (4.8-10.8) X10*3/uL RBC 4.46 (4.20-5.50) X10*6/uL Hgb 13.9 (12.0-16.0) g/dl Hct 40.5 (37.0-47.0) % MCV 90.8 (80.0-98.0) fL MCH 31.2 (27.0-33.0) pg MCHC 34.3 (31.0-35.0) g/dl RDW 12.3 (11.0-16.0) % Plt Count 195 (160-400) X10*3/uL MPV 10.7 (9.4-12.3) fL Immature Gran % (Auto) 1.0 H (0.0-0.4) % Neut % (Auto) 77.1 H (45-73) % Lymph % (Auto) 13.6 L (20-40) % [place] % (Auto) 7.5 (2-11) % Eos % (Auto) 0.6 (0-4) % Baso % (Auto) 0.2 (0-2) % Lymph # (Auto) 1.6 (1.2-4.9) X10*3/uL [place] # (Auto) 0.9 (0.1-1.2) X10*3/uL Eos # (Auto) 0.1 (0.0-0.4) X10*3/uL Baso # (Auto) 0.0 (0.0-0.2) X10*3/uL Abs Immat Gran (auto) 0.12 H (0.00-0.03) X10*3/uL Absolute Neuts (auto) 9.3 H (2.0-8.3) x10*3/uL Absolute Nucleated RBC 0.000 (0.0-0.012) X10*3/uL Nucleated RBC % (auto) 0.0 (0.0-0.2) /100WBC Sodium 143 (135-145) mmol/L Potassium 4.2 (3.3-5.1) mmol/L Chloride 113 H (96-108) mmol/L Carbon Dioxide 23 (22-29) mmol/L Anion Gap 11 L (12-20) BUN 7 L (9-16) mg/dL Creatinine 0.63 (0.5-1.4) mg/dL Estim Creat Clear Calc 72.8 Estimated GFR > 60 Random Glucose 103 (60-115) mg/dL Calcium 8.8 D (8.4-10.2) mg/dL Magnesium 1.9 (1.6-2.6) mg/dL Total Bilirubin 0.8 (0.0-1.0) mg/dL Direct Bilirubin 0.2 (0.0-0.5) mg/dL AST 53 H (5-31) U/L ALT 17 (0-31) U/L Alkaline Phosphatase 77 (39-117) U/L Total Protein 6.7 (6.5-8.0) g/dL Albumin 3.9 (3.5-5.0) g/dL Lipase 48 (8-78) U/L Urine Color Yellow Urine Appearance Clear Urine pH 6.0 (5.0-9.0) Ur Specific [place] 1.010 (1.005-1.025) Urine Protein Negative (Neg-Trace) mg/dL Urine Glucose (UA) Negative (Negative) mg/dL Urine Ketones Negative (Negative) mg/dL Urine Blood Large (3+) H (Negative) Urine Nitrite Negative (Negative) Ur Leukocyte Esterase Trace H (Negative) Urine RBC 11-20 H (0-2) /HPF Urine WBC 0-5 (0-5) /HPF Ur Squamous Epith Cells 0-2 (0-2) /HPF Urine Bacteria None Seen (None Seen) Hyaline Casts 0-2 (0-2) /LPF Independent Interpretation I performed an independent interpretation of an: CT Scan Interpretation: My interpretation is in agreement with the radiologist's impression of this imaging study. L Report Number: [id number]: Total DLP = 0.00 mGy-cm EXAMINATION: CT ABDOMEN PELVIS WITHOUT IV CONTRAST HISTORY: R flank pain COMPARISON: Comparison is made with the prior examination dated 05/28/2022. TECHNIQUE: CT scan of the abdomen and pelvis was performed without contrast using standard departmental protocol. Coronal and sagittal reformatted images were generated and reviewed. Oral contrast material was not administered per department protocol. This CT exam was performed with one or more of the following dose reduction techniques: automated exposure control, adjustment of the mA and/or kV according to patient size, use of iterative reconstruction technique. DLP: 590 mGy-cm FINDINGS: LOWER CHEST: The visualized lung bases are clear. There is no pleural effusion. CARDIOVASCULATURE: The heart is normal in size. There is no pericardial effusion. LIVER: The liver is normal in size and contour. The liver has an unremarkable unenhanced appearance. GALLBLADDER / BILE DUCTS: The gallbladder is unremarkable. There is no intra or extrahepatic biliary ductal dilatation. SPLEEN: The spleen is normal in size and has an unremarkable unenhanced appearance. PANCREAS: The pancreas has an unremarkable unenhanced appearance. ADRENAL GLANDS: Unremarkable. KIDNEYS/RETROPERITONEUM: There are nonobstructing calculi at the upper and lower poles of the right kidney measuring up to 2 mm in size. There is moderate right hydronephrosis and hydroureter to the level of a 3 mm UVJ calculus. No left renal calculi are identified. There is no left hydronephrosis. Again seen is a 5.0 cm cyst at the lower pole of the right kidney. LYMPH NODES: No retroperitoneal lymphadenopathy is identified in the abdomen or pelvis. VASCULATURE: The abdominal aorta demonstrates atherosclerotic calcification, but is normal in caliber. MESENTERY/PERITONEUM: No free fluid. No masses. There is no free intraperitoneal gas. STOMACH: The stomach is collapsed, limiting evaluation. SMALL BOWEL: The small bowel is normal in caliber. COLON: There is diverticulosis of the sigmoid colon, without evidence of diverticulitis. APPENDIX: Normal. URINARY BLADDER/PELVIC ORGANS: The urinary bladder is collapsed, limiting evaluation. The uterus has an unremarkable unenhanced appearance. BONES / SOFT TISSUES: There is degenerative disc disease of the spine. CT/CT abdomen pelvis wo IV con IMPRESSION: Moderate right hydroureteronephrosis secondary to a 3 mm UVJ calculus. Right nephrolithiasis as described. Electronically signed by: Ulises Lynne MD 07/29/2024 12:33 PM EDT Dictated By: Ulises Lynne MD Signed By: Electronically signed by Ulises Lynne MD 07/29/24 1233 Radiology Impression Discussion of test interpretation with radiology: I have reviewed the radiologist's reading. Medications Administered Discontinued Medications Generic Name Dose Route Start Last Admin Trade Name Freq PRN Reason Stop Dose Admin Carvedilol 3.125 mg 07/29/24 13:02 07/29/24 14:35 Carvedilol 3.125 Mg Tablet PO 07/29/24 13:03 3.125 mg ONCE ONE Administration Protocol Sodium Chloride 1,000 mls @ 999 mls/hr 07/29/24 13:00 07/29/24 15:39 Ns IV 07/29/24 14:00 Infused .Q1H1M YULIANA Infusion Ketorolac Tromethamine 15 mg 07/29/24 12:46 07/29/24 14:47 Ketorolac Tromethamine 15 Mg/Ml Vial IVPUSH 07/29/24 12:47 15 mg ONCE ONE Administration Pantoprazole Sodium 40 mg 07/29/24 12:46 07/29/24 14:51 Pantoprazole Sodium 40 Mg/10 Ml Vial IVPUSH 07/29/24 12:47 40 mg ONCE ONE Administration Critical Care Time Critical Care Time Critical Care Time: Yes Total Critical Care Time: 36 Attestation: I spent 36 minutes of Critical Care Time with this patient. This does not include time spent on separately reported billable procedures. Discharge Plan Discharge Clinical Impression: Kidney stone Patient Disposition: Home, Self-Care Instructions: Kidney Stones (ED) Additional Instructions: Your work up today showed a 3mm right sided kidney stone. I have prescribed you medication to take to help pass this stone. Follow up with your primary care provider and a urologist. Return to the emergency department immediately if your symptoms worsen or if you develop any numbness, tingling, dizziness, shortness of breath, difficulty breathing, chest pain, blurry vision, loss of vision, nausea, vomiting, abdominal pain, fever, chills, back pain, or any other complaints. Please see the information below about our Patient Portal. If you are not yet enrolled in the [facility] Patient Portal, you will receive an enrollment email invitation following your visit to any [facility] setting. You may also self-enroll in the Patient Portal by visiting our website: [email or web address] The following information is required to access the Patient Portal: - Your [facility] Medical Record Number - Your personal home email address (must match what is in your electronic medical record, Registration staff can assist with this) - Name - Date of Capabilities of the Patient Portal: - Message some providers - View upcoming appointments - Access your health summary, medical history, and visit history - View current conditions and allergies - View procedure and lab results - View your medications, including guidelines, side effects, and precautions - Complete pre-appointment questionnaires requested by your provider - Ready summary reports of your office visits and procedures To access the Patient Portal Mobile Angel, follow these directions: - Search [employer] in the Angel Store or SpinGo Store - Download the Angel - Search for [facility] - Enter your login/password Prescriptions: New prednisone 10 mg tablet 10 mg PO DAILY 5 Days Qty: 5 0RF tamsulosin 0.4 mg capsule 0.4 mg PO DAILY Qty: 7 0RF No Action carvedilol [Coreg] 3.125 mg tablet 3.125 mg PO BID 90 Days Qty: 180 3RF Rx Instructions: must administer with a meal/food simvastatin 20 mg tablet 20 mg PO BEDTIME latanoprost 0.005 % drops 1 drp ophthalmic (eye) DAILY levothyroxine 50 mcg tablet 50 mcg PO .QOD levothyroxine 75 mcg tablet 75 mcg PO .QOD lorazepam 0.5 mg tablet 1 mg PO ONCE PRN glipizide 5 mg tablet 5 mg PO BID ascorbic acid (vitamin C) 1,000 mg tablet extended release 1,000 mg PO DAILY diclofenac sodium [Arthritis Pain (diclofenac)] 1 % gel 4 g topical QID 30 Days Qty: 100 0RF lidocaine 5 % adhesive patch,medicated 2 patch topical DAILY PRN (Reason: pain) 30 Days Qty: 60 1RF multivitamin Tablet 1 tab PO DAILY Referrals: [facility]rology [facility] [Provider Group] (Call to establish and follow up with a urologist. ) Abel Coleman MD [Primary Care Provider] - Interventions: ED Discharge Assessment Last Done: 07/29/24 15:44 Discharge Date/Time: 07/29/24 15:45 Print Language: Persian
[2024-07-29 13:24] LABS: MANUAL DIFF FLAG NO
[2024-07-29 13:28] LABS: Basophils Percent Auto 0.2 % (0-2); Eosinophils Absolute Auto 0.1 X10*3/uL (0.0-0.4); Eosinophils Percent Auto 0.6 % (0-4); Hematocrit 40.5 % (37.0-47.0); Hemoglobin 13.9 g/dl (12.0-16.0); Imm Gran Abs Auto 0.12 X10*3/uL (0.00-0.03); Lymphocytes Absolute Auto 1.6 X10*3/uL (1.2-4.9); Lymphocytes Percent Auto 13.6 % (20-40); Mean Corpuscular HGB Conc 34.3 g/dl (31.0-35.0); Mean Corpuscular Hemoglobin 31.2 pg (27.0-33.0); Mean Corpuscular Volume 90.8 fL (80.0-98.0); Mean Platelet Volume 10.7 fL (9.4-12.3); Monocytes Absolute Auto 0.9 X10*3/uL (0.1-1.2); Monocytes Percent Auto 7.5 % (2-11); Neutrophils Absolute Auto 9.3 x10*3/uL (2.0-8.3); Neutrophils Percent Auto 77.1 % (45-73); Platelet Count 195 X10*3/uL (160-400); Red Blood Count 4.46 X10*6/uL (4.20-5.50); Red Cell Distribution Width 12.3 % (11.0-16.0)
[2024-07-29 13:43] LABS: Alanine Aminotransferase 17 U/L (0-31); Albumin Level 3.9 g/dL (3.5-5.0); Alkaline Phosphatase 77 U/L (39-117); Anion Gap 11 (12-20); Aspartate Amino Transferase 53 U/L (5-31); Bilirubin Direct 0.2 mg/dL (0.0-0.5); Bilirubin Total 0.8 mg/dL (0.0-1.0); Blood Urea Nitrogen 7 mg/dL (9-16); Calcium 8.8 mg/dL (8.4-10.2); Carbon Dioxide 23 mmol/L (22-29); Chloride 113 mmol/L (96-108); Creatinine Clr Calc Pharmacy 72.8; Estimated Glomerular Filt Rate > 60; Glucose Random 103 mg/dL (60-115); Lipase 48 U/L (8-78); Magnesium 1.9 mg/dL (1.6-2.6); Potassium 4.2 mmol/L (3.3-5.1); Sodium 143 mmol/L (135-145); Total Protein 6.7 g/dL (6.5-8.0)
[2024-07-29 14:16] LABS: Appearance Urine Clear; Color Urine Yellow; Glucose Urine UA Negative (Negative); Leukocyte Esterase Urine Trace (Negative); Nitrite Urine Negative (Negative); UMIC TRIGGER UACC YES; Urine Blood Large (3+) (Negative); Urine Ketones Negative (Negative); Urine Protein Negative (Neg-Trace)
[2024-07-29 14:35] VITALS: BP 189/90; PULSE 86
[2024-07-29] MEDS: carvediloL 3.125 MG TABLET PO (14:35)
[2024-07-29 14:41] LABS: Bacteria Urine None Seen (None Seen); Hyaline Casts Urine 0-2 /LPF (0-2); Squamous Epithelial Cell Urine 0-2 /HPF (0-2); WBC Urine 0-5 /HPF (0-5)
[2024-07-29] MEDS: Ketorolac Tromethamine 15 MG/ML VIAL IVPUSH (14:47)
[2024-07-29] MEDS: Pantoprazole Sodium 40 MG/10 ML VIAL IVPUSH (14:51)
[2024-07-29] MEDS: 0.9 % Sodium Chloride 1,000 ML 999 ML IV (14:52)
[2024-07-29 15:36] VITALS: BP 171/55; PULSE 85; RESP 18; TEMP 37.2; O2SAT 98
[2024-07-29 15:44] VITALS: BP 171/55; PULSE 85; RESP 18; TEMP 37.2; O2SAT 98
== END 2024-07-29 15:45 | disposition home or self-care (01) ==
PROVIDERS: Emergency Provider Emergency Medicine; PCP Internal Medicine
DX: N13.2 Hydronephrosis with renal and ureteral calculous obstruction (principal); R10.31 Right lower quadrant pain; E11.9 Type 2 diabetes mellitus without complications; I10 Essential (primary) hypertension; Z79.899 Other long term (current) drug therapy
CPT/HCPCS: 36415; 74176; 80048; 80076; 81001; 83690; 83735; 85025; 96361; 96374; 96375; 99284; 99285; J1885; J2470

== ENCOUNTER → 2024-07-29 11:58 | Outpatient (BNV) | payer MEDICARE, SELFPAY | PROVIDERS: Emergency Provider Emergency Medicine; PCP Internal Medicine; Visit Provider Radiology Diagnostic Radiology | DX: N13.2 Hydronephrosis with renal and ureteral calculous obstruction (principal) | CPT/HCPCS: 74176 ==

== ENCOUNTER 2024-08-03 13:06 | Outpatient (REF) | payer MEDICARE, SELFPAY ==
--- NOTE | ~2024-08-03 | XR_ITS ---
EXAMINATION: XR CHEST CLINICAL INFORMATION: R05.9 - Cough, unspecified COMPARISON: 11/28/2016. TECHNIQUE: 2 views of the chest were obtained. FINDINGS: The cardiac, hilar, and mediastinal contours are normal. The lungs are somewhat hyperaerated, however clear bilaterally. There is no pneumothorax or pleural effusion. There is no focal osseous or soft tissue abnormality. There are spinal degenerative changes. XR/XR chest 2V IMPRESSION: No active pulmonary disease. Electronically signed by: Juan Luis Galan MD 08/03/2024 03:42 PM EDT
--- OUTSIDE RECORDS SUMMARY | 2024-08-03 14:10 | XMS_ITS | Data Portability ---
Author Organization [place] - [facility], [facility] Address [address] [place] [address] Care Team Providers Care Cell Tuber Hand Name Role Phone KADENJESSE Lepe Primary Care Provider [phone] Assessment Encounter Date Assessment Date Assessment LastModified [...] and back symptoms. She was seen at [facility]. She reports she initially [...] and lucid. Normal insight, affect, and grooming. 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 No spasticity [...] Both knees, [facility] view of Both Knees, [place] View of Both Knees, and Lateral of the Left knee; demonstrate severe end-stage osteoarthritis of the Left Knee. There is fipe-tm-xacu articulation medially, subchondral sclerosis, osteophyte formation. There [...] to answer all of the patient's questions. ZummZumm speech recognition side hemmer software was used to create portions of this document. An attempt at proofreading has been made to minimize errors. Please call for corrections. [email or web address] Not available 04/30/2024 14:58:41 Plan of Treatment Reminders Order Date Submit Date Provider Last Modified By Organization Details Last Modified Time Details Appointments LORENA Arnold&Sonia 2024 09:30A M Raquel Navarro CNP Not available Not available Not available SURGERY @ [facility] 2024 07:30A M Brannon Benson MD Not [...] hip. Dr. Benson's protocol . 2024 025 [email or web address] [facility], [address], [place], [address], 05/11/2024 14:24:10 Medication Orders None recorded . [...] a4ajBk vP9nXo QUaueC m3YtLR FvZlgJ JJ8mAn HZtai3 5c8496 AC0Kqb XiEWaW nKiQtr MwF INTERFACE [facility] [address], [place], [address], 04/30/2024 13:50:56 04/30/19 25 04/30/2024 XR, hip + pelvi s, unila teral , 2 or 3 view http:/ [email or web address] ?Encry pted=s hAaTro YD8dLq bEUv6g %2BXZw aYqtaq 0bqfl% 2Fg9IQ a4ajBk vP9nXo QUaueC m3YtLR FvZlgJ JJ8mAn HZtai3 8b4070 AC0Kqb XiEWaW nKiQtr MwF INTERFACE [facility] [address], [place], [address], 04/30/2024 13:50:57 05/06/19 25 05/04/2024 MRI, lumba r spine , w/wo contr ast [facility] Access ion Number : [id number] Patien t Name: Merly Mendoza l Record Number : [id number] Date of : 1945 Date of Exam: 2024 Referr ing Physic bienvenido: Ulises Smith [address] [place] [address] Exam: MR Lumbar Spine (C-/C+ ) CPT 05132 Room Descri ption: [facility] Pion 3T MR Lumbar Spine (C-/C+ ) CPT 61115 INDICA TION: Reason For Exam: Radicu lopath y, lumbar region , , eval for progre ssion or develo pment of metast atic diseas e\E E\prev ious mri done at [facility], Rule Out: eval for progre ssion or develo pment of metast atic diseas e Reason For Exam: Radicu lopath y, lumbar region , , eval for progre ssion or develo pment of metast atic diseas e\E E\prev ious mri done at [facility], Rule Out: eval for progre ssion [...] S: There is atroph y of the surgical supervisor ior parasp inal muscul ature. Multip le [...] onical ly Signed By: Stacie lange MD [email or web address] [facility] ([facility] [address] [place], [address], 05/05/2024 14:29:36 Result Notes None recorded. Problems Name Problem SNOMED Code Status Onset Date Resolution Date Notes Provider Name and Address Organization Details Recorded Time Lumbar radiculopat hy 039863555 Active 2023 COLEEN roman [place] - [facility] 4 09:58:25 Osteoarthri tis of left hip joint 1490179147960 08 Active 2024 Brannon Benson MD [address], [facility] [place], [address], [facility] 17:13:47 Osteoarthri tis of left knee joint 5180085408468 09 Active 2024 Raissa martinez PA-C [address], [place], [address], [facility] 10:57:49 Problem Notes None recorded. Procedures Surgical History Date Name Laterality Status Provider Name and Address Organization Details Recorded Time 07/20/2024 JZKNEE INJ completed Raissa Mancilla PA-C [address], [place], [address], [facility] 07/20/2024 10:57:41 01/28/2024 JZKNEE INJ completed Raissa Mancilla PA-C [address], [place], [address], [facility] 01/28/2024 15:41:55 10/28/2023 JZKNEE INJ completed Raissa Mancilla PA-C [address], [place], [address], [facility] 10/28/2023 14:21:09 Imaging Results None recorded. Procedure Notes None recorded. Medical Equipment None Reported. Allergies Allergen ID Allergen Name Allergen Category Reaction Reaction Severity Criticality Documentation Date Start Date Code Code System Note Provider Name and Address Organization Details Recorded Time [id number] Non-stero idal anti-infl ammatory agent (product) medicatio n Not available Not available Not available 04/30/2024 69348 005 SNOMED Caridad lizama [facility] 13:40:03 Medications Name Sig Start Date Stop [...] Updated DateTime 04/27/2024 157.48 cm OMEGA RODARTE [facility] 04/27/2024 14:18:22 Date Recorded Body height Body mass index (BMI) Body weight Provider Name and Address Organization Details Last Updated DateTime 04/27/2024 157.48 cm 34.5 kg/m2 42188.8 g NEELIMA CABALLERO [place] [facility] 04/27/2024 11:30:50 Date Recorded Body height Body mass index (BMI) Body weight Provider Name and Address Organization Details Last Updated DateTime 04/30/2024 154.94 cm 35 kg/m2 80063.59 g Caridad Ferreira [facility] 04/30/2024 13:36:54 Date Recorded Body height Body mass index (BMI) Body weight Provider Name and Address Organization Details Last Updated DateTime 07/20/2024 154.94 cm 35 kg/m2 23962.59 g Carolina Balderrama [facility] 07/20/2024 10:42:25 Date Recorded Body height Body mass index (BMI) Body weight Provider Name and Address Organization Details Last Updated DateTime 01/28/2024 160.02 cm 34.9 kg/m2 43741.7 g Jesus Medel [facility] 01/28/2024 12:52:10 Social History None recorded. Functional Status None recorded. Mental Status None recorded. Family History Nothing Reported. Medical History No medical history recorded. Gynecological HistoryNo gynecological history recorded. Obstetrics History GPAL:G 0 P 0 0 0 0 Past Encounters Encounter ID Performer Location Encounter Start Date Encounter Closed Date Diagnosis/Indication Diagnosis SNOMED-CT Code Diagnosis ICD10 Code Diagnosis Note [id number] Ulises Smith MD [facility] [address] [place], [place] [address] 09/19/2023 08:48:43 10/16/2023 14:03:11 Lumbar radiculopathy 240037823 M54.16 [id number] Ulises Smith MD [facility] [address] [place], [place] [address] 10/18/2023 08:52:55 11/12/2023 15:26:18 Lumbar radiculopathy 000029378 M54.16 [id number] Raissa shaw PA-C [facility] [address] [place], [place] [address] 10/28/2023 08:21:57 11/19/2023 15:47:54 Pain of left knee joint 6073999374 59708 M25.562 Osteoarthr itis of left knee joint 9966481008 94273 M17.12 [id number] Raissa shaw PA-C [facility] [address] [place], [place] [address] 01/28/2024 12:36:45 02/12/2024 12:01:15 Osteoarthritis of left knee joint 7453262322 97589 M17.12 [id number] Raissa shaw PA-C [facility] [address] [place], [place] [address] 04/27/2024 10:51:13 05/11/2024 10:05:32 Osteoarthritis of left knee joint 4769290451 54347 M17.12 Osteoarthr itis of left hip joint 7690058027 62714 M16.12 Ulises Smith MD [facility] [address] [place] [address] 04/27/2024 14:08:58 05/11/2024 15:42:47 Lumbar radiculopathy 129408920 M54.16 [id number] MD [facility] [address] [place] [address] 04/30/2024 13:19:05 05/11/2024 14:24:10 Osteoarthritis of left hip joint 4305415399 26406 M16.12 [id number] WILLIAM [facility] [address] [place] [address] 07/20/2024 10:28:50 07/28/2024 15:32:21 Osteoarthritis of left knee joint 9972221751 35207 M17.12 Health Concerns Section Related Observation LastModified by Organization Detai ls LastModified Time None Recorded Concern Status LastModified by Organization Details LastModified Time None Recorded Advance Directives Directive None Recorded Payers Encounter Date Sequence Insurance Name Policy Number Policy Reyes Covered Member ID Reyes Member ID Guarantor Name 01/28/2024 1 [employer] MED[employer]VANTAGE PLAN (MEDICARE REPLACEMENT HMO) [id number] 1 Merly Pérez Canedy [id number] Merly Canedy 04/27/2024 1 [employer]AGE PLAN (MEDICARE REPLACEMENT HMO) [id number] 1 Merly Pérez Canedy [id number] Merly Canedy 04/27/2024 1 [employer]AGE PLAN (MEDICARE REPLACEMENT HMO) [id number] 1 Merly Pérez Canedy [id number] Merly Canedy 04/30/2024 1 [employer] MED[employer] ADVANTAGE PLAN (MEDICARE REPLACEMENT HMO) [id number] 1 Merly Beto Canedy [id number] Merly Canedy 07/20/2024 1 [employer] MED[employer]VANTAGE PLAN (MEDICARE REPLACEMENT HMO) [id number] 1 Merly Pérez Canedy [id number] Merly Canedy Notes Date Note Type Note [...] noted above.X-rays ordered, obtained and reviewed at [facility] 4 views left knee demonstrate bone on bone articulation medial compartment, subchondral sclerosis, tricompartmental osteophyte formationImpression: End-stage osteoarthritis left kneePlan: Treatment options reviewed at length with the patient. She would like to proceed with reppeat cortisone injection today for her left knee. She will follow up with me in 3 months for a recheck and will call sooner with any difficulty. Questions answered.ZummZumm speech recognition side hemmer software was used to create portions of this document. An attempt at proofreading has been made to minimize errors. Please call for corrections. Raissa Mancilla PA-C [address] [facility] [address], [place], [address], [facility] 01/28/2024 15:42:24 04/27/2024 text/html HPI: 78-year-old female presents with longstanding low back and radiating left leg pain. Seen previously for similar symptoms here 6 months ago. If anything her symptoms have worsened. She has had multiple injections primarily directed at her hip and knee arthrosis. Knee injections have been helpful. Hips not so much. She went to [place] [facility]. Some spine injections were performed with minimal benefit. Reports back pain worse than leg pain but leg pain progressive when she walks. Consistent with neuro claudication. No bowel or bladder complaints WORK STATUS: Retired [employer] has been reviewed, updated, and is located in the patient's chart RADIOGRAPHS: Lumbar spine MRI performed last October notable for spondylosis without evidence of ongoing nerve root compression at any level. PHYSICAL EXAMINATION: Ulises Smith MD [address], [place], [address], [place] [facility] 04/27/2024 15:45:02 04/27/2024 text/html I am seeing [...] leg today. She has been seen at [facility]. She reports she had multiple lumbar injections in the left hip intra-articular injection. The intra-articular hip injection gave her the most relief however unfortunately only worked for 4 days. She reports that [facility] told her there was nothing more that [...] Stinchfield test.X-rays ordered, obtained and reviewed at [facility] 4 views left knee demonstrate bone on [...] hip to discuss total hip arthroplasty. Questions answered.ZummZumm speech recognition side hemmer software was used to create portions of this document. An attempt at proofreading has been made to minimize errors. Please call for corrections. Raissa Mancilla PA-C [address] [place] [address] [address] [facility], [place], [address], [facility] 05/11/2024 09:57:29 07/20/2024 text/html [...] continued conservative treatment. Raissa Mancilla PA-C [address], [place], [address], [facility] 07/20/2024 10:58:23 OBGyn Episode No OBEpisode recorded.
== END 2024-08-03 13:07 | disposition home or self-care (01) ==
LOC: HO.HMGCX 13:06
PROVIDERS: PCP Internal Medicine; Visit Provider Physician Assistant Medical
DX: R05.9 Cough, unspecified (principal)
CPT/HCPCS: 71046

== ENCOUNTER → 2024-08-03 13:11 | Outpatient (BNV) | payer MEDICARE, SELFPAY | PROVIDERS: PCP Internal Medicine; Visit Provider Radiology Diagnostic Radiology | DX: R05.9 Cough, unspecified (principal) | CPT/HCPCS: 71046 ==

== ENCOUNTER 2024-08-05 15:11 | Outpatient (AMB) | payer MEDICARE, SELFPAY ==
--- NOTE | 2024-08-05 15:16 | MHC.OFFVIS ---
Intake Visit Reasons: kidney stones/ hydronephrosis Intake Note: Pt presents to the office today as a new patient visit for kidney stone/hydronephrosis. Urology Meds:Tamsulosin Blood thinners:None Allergies oxycodone [OXYCODONE] Allergy (Severe, Verified 08/05/24 16:14) N/V aspirin [ASPIRIN] Allergy (Intermediate, Verified 08/05/24 16:14) GI UPSET/BLEEDING latex [LATEX] Allergy (Intermediate, Verified 08/05/24 16:14) RASH NSAIDS (Non-Steroidal Anti-Inflamma [NSAIDS (NON-STEROIDAL ANTI-INFLAMMA] Allergy (Intermediate, Verified 08/05/24 16:14) GI UPSET/BLEEDING naproxen [From Aleve] Allergy (Verified 08/05/24 16:14) Diarrhea Medication List - Last Reconciled 08/05/24 by MEHREEN Jones-NANNETTE ascorbic acid (vitamin C) ER 1,000 mg PO DAILY diclofenac sodium 1% (Arthritis Pain (diclofenac)) 4 grams topical QID 30 days glipizide 5 mg PO BID latanoprost 0.005% 1 drp ophthalmic (eye) DAILY levothyroxine 75 mcg PO .QOD levothyroxine 50 mcg PO .QOD lorazepam 1 mg PO ONCE PRN multivitamin 1 tab PO DAILY simvastatin 20 mg PO BEDTIME HPI Comments Details: Merly is a 78-year-old female patient of Dr. Coleman. She has a past medical history of obesity, hypertension, type 2 diabetes, bilateral osteoarthritis, anxiety, GI bleed, tonsillar cancer status post radiation. She presents to the office today as a new patient for nephrolithiasis. In discussion with the patient today she reports having seeked emergency room care last week for right-sided lower quadrant pain that radiated to flank pain area at which time a CT of the abdomen was ordered and performed. These results were reviewed and communicated with the patient today. 07/26 there nonobstructing calculi at the upper pole and lower pole of the right kidney measuring up to 2 mm in size. There is a moderate right hydronephrosis and hydroureter at the level of a 3 mm UVJ calculus. No left renal calculi are identified. No left-sided hydronephrosis. Again seen is a 5.0 cm cyst in the lower pole of the right kidney. She brings with her today her kidney stone that she has since urinated. She reports pain she had been experiencing has since subsided. She denies any previous history of nephrolithiasis and or surgical intervention for nephrolithiasis. She does however report stress incontinence. We did discussed further treatment options of stress incontinence and risks and benefits of these treatment options however patient discusses her upcoming hip replacement the end of the month therefore were reassess further treatment options after. She denies hematuria, dysuria, foul smelling urine, changes to urinary stream, flank pain, fever, and or chills. All questions were answered. She otherwise offers no other issues or concerns at this time. [facility] Medical History Class 1 obesity with body mass index (BMI) of 32.0 to 32.9 in adult History of mammogram (~07/15/24) Cough Establishing care with new doctor, encounter for Anxiety GI bleed Surgical History History of colonoscopy (~07/08/19) S/P tooth extraction Family History Father S/P CABG x 4 Stroke Heart attack Heart disease Mother Cancer Paternal Uncle Heart disease Diabetes Paternal Uncle Heart disease Daughter Multiple sclerosis Paternal Grandmother Diabetes Maternal Grandfather Stomach cancer Social History Alcohol intake: current Alcohol intake frequency: holidays/special occasions only Patient Tobacco Use Status: Former Tobacco user Review of Systems Const All systems reviewed & are unremarkable except as noted in HPI and below Physical Exam Const General: cooperative, comfortable, no acute distress, well developed, alert and awake Nutritional Appearance: overweight Orientation/consciousness: patient oriented x3 HEENT Head: Yes normal to inspection, Yes normocephalic and Yes atraumatic Ears: hearing grossly normal bilaterally Eyes General: appearance normal, both eyes and all related structures Neck Neck: Yes normal visual inspection and Yes trachea midline Chest Chest palpation & inspection: normal inspection of the chest Resp Effort & Inspection: normal respiratory effort and able to speak in complete sentences Cardio Rate: regular rate GI Inspection: Yes normal to inspection General: Yes no CVA tenderness Back/Spine/Pelvis Back: no CVA tenderness Skin General skin exam: no rashes or lesions noted Neuro General: patient oriented x3 Extrem General: Yes normal to inspection Psych Appearance: grossly normal and well kempt Mental Status: mental status grossly normal Speech and movement: Normal speech and movement present and Clear speech present Affect: normal affect Attitude: cooperative Thought process: Normal thought process present Thought content: Normal thought content present Insight: Fair insight present (Psych) Judgement: Fair judgement present (Psych) Results AMB Urinalysis, Automated UA Leukoctes 70 Zeny/uL Last Edit by Charlotte Richter CMA on 08/05/24 15:32 UA Nitrite Negative Last Edit by Charlotte Richter, EDEN on 08/05/24 15:32 UA Urobilinogen 1 mg/dL Last Edit by Charlotte Richter CMA on 08/05/24 15:32 UA Protein 0 mg/dL Last Edit by Charlotte Richter CMA on 08/05/24 15:32 UA pH 7.5 Last Edit by Charlotte Richter, EDEN on 08/05/24 15:32 UA Blood 0 Henrry/uL Last Edit by Charlotte Richter, EDEN on 08/05/24 15:32 UA Specific Dubach 1.000 Last Edit by Charlotte Richter, EDEN on 08/05/24 15:32 UA Ketone Negative Last Edit by Charlotte Richter CMA on 08/05/24 15:32 UA Bilirubin 0 mg/dL Last Edit by Charlotte Richter CMA on 08/05/24 15:32 UA Glucose 0 mg/dL Last Edit by Charlotte Richter CMA on 08/05/24 15:32 Results Reviewed Results Reviewed: Laboratory Last Values Urine pH (Auto) 7.5 08/05/24 15:31 Specific Dubach (Auto) 1.000 08/05/24 15:31 Urine Protein (Auto) 0 mg/dL 08/05/24 15:31 Glucose (UA)(Auto) 0 mg/dL 08/05/24 15:31 Urine Ketones (Auto) Negative 08/05/24 15:31 Urine Blood (Auto) 0 Henrry/uL 08/05/24 15:31 Urine Nitrite (Auto) Negative 08/05/24 15:31 Urine Bilirubin (Auto) 0 mg/dL 08/05/24 15:31 Urine Urobilinogen (Auto) 1 mg/dL 08/05/24 15:31 Leukocyte Esterase (Auto) 70 Zeny/uL 08/05/24 15:31 Date of Service: 07/29/24 Procedure(s): CT abdomen pelvis wo IV con FINDINGS: LOWER CHEST: The visualized lung bases are clear. There is no pleural effusion. CARDIOVASCULATURE: The heart is normal in size. There is no pericardial effusion. LIVER: The liver is normal in size and contour. The liver has an unremarkable unenhanced appearance. GALLBLADDER / BILE DUCTS: The gallbladder is unremarkable. There is no intra or extrahepatic biliary ductal dilatation. SPLEEN: The spleen is normal in size and has an unremarkable unenhanced appearance. PANCREAS: The pancreas has an unremarkable unenhanced appearance. ADRENAL GLANDS: Unremarkable. KIDNEYS/RETROPERITONEUM: There are nonobstructing calculi at the upper and lower poles of the right kidney measuring up to 2 mm in size. There is moderate right hydronephrosis and hydroureter to the level of a 3 mm UVJ calculus. No left renal calculi are identified. There is no left hydronephrosis. Again seen is a 5.0 cm cyst at the lower pole of the right kidney. LYMPH NODES: No retroperitoneal lymphadenopathy is identified in the abdomen or pelvis. VASCULATURE: The abdominal aorta demonstrates atherosclerotic calcification, but is normal in caliber. MESENTERY/PERITONEUM: No free fluid. No masses. There is no free intraperitoneal gas. STOMACH: The stomach is collapsed, limiting evaluation. SMALL BOWEL: The small bowel is normal in caliber. COLON: There is diverticulosis of the sigmoid colon, without evidence of diverticulitis. APPENDIX: Normal. URINARY BLADDER/PELVIC ORGANS: The urinary bladder is collapsed, limiting evaluation. The uterus has an unremarkable unenhanced appearance. BONES / SOFT TISSUES: There is degenerative disc disease of the spine. IMPRESSION: Moderate right hydroureteronephrosis secondary to a 3 mm UVJ calculus. Right nephrolithiasis as described. Assessment & Plan Assessment & Plan (1) Kidney stone: Code(s): N20.0 - Calculus of kidney Category: Medical Plan In office urinalysis results reviewed with the patient today; as noted above. Will send stone for stone analysis. Recent CT results reviewed with the patient today; as noted above. We discussed at length the importance of adequate hydration relation to nephrolithiasis as well as overall health and well-being. We discussed near future metabolic workup to include Litholink and labs. We discussed adding 1 oz of lemon juice to water daily. Start vitamin B6 as discussed and prescribed. Will obtain renal ultrasound for further assessment evaluation. We also discussed further treatment options of stress incontinence however will revisit these treatment options as patient will soon be having a hip replacement the end of the month. Follow-up in 3 months with imaging to be completed prior; or sooner with any issues, concerns, and or questions. Orders: Orders AMB Urinalysis Automated Today Z13.9 - Encounter for screening, unspecified US retroperitoneal comp Today N20.0 - Calculus of kidney Surgical Today N20.0 - Calculus of kidney Medications: New pyridoxine (vitamin B6) 100 mg PO DAILY 90 tabs 1RF 90 days Patient Instructions: The patient had an opportunity to ask questions regarding the treatment plan. All questions were answered. Physical exam, labs, and imaging were discussed and reviewed in detail. As well as risks, benefits, and discussion of treatment choices. No major barriers to understanding were identified. The patient expressed understanding and agreement with the above treatment plan. The patient was made aware they should contact our office by phone for worsening of their current condition, the appearance of new symptoms, or with any questions or concerns. Compliance is encouraged with any medications and follow up testing that is ordered. It is a privilege to be allowed the opportunity to participate in? your urological care.? Again, if you have any questions or concerns If you have any questions or concerns please do not hesitate to contact me. The office is [phone]. This note is constructed using voice recognition software. While every effort has been made to ensure accuracy retail department reset errors may have been included. Yours sincerely, ANTHONY Jones Coding Level of Care Code New Pt Level 4 (09242) Diagnoses Kidney stone N20.0
--- OUTSIDE RECORDS SUMMARY | 2024-08-05 15:22 | XMS_ITS | Data Portability ---
Author Organization MD - [facility], [facility] Address [address] [place] [address] Care Team Providers Care Insurance Business Analyst Name Role Phone KADENJESSE Lepe Primary Care Provider Assessment Encounter Date Assessment Date Assessment LastModified [...] and back symptoms. She was seen at [facility]. She reports she initially [...] and lucid. Normal insight, affect, and grooming. BARREL RIFLER HOOK: Gross motor coordination is intact. No spasticity [...] Both knees, Kaiser view of Both Knees, Kiefer View of Both Knees, and Lateral of the Left knee; demonstrate severe end-stage osteoarthritis of the Left Knee. There is mbuz-nb-ktng articulation medially, subchondral sclerosis, osteophyte formation. There [...] to answer all of the patient's questions. myAchy speech recognition spray booth operator software was used to create portions of this document. An attempt at proofreading has been made to minimize errors. Please call for corrections. [email or web address] Not available 04/30/2024 14:58:41 Plan of Treatment Reminders Order Date Submit Date Provider Last Modified By Organization Details Last Modified Time Details Appointments LORENA Arnold&Sonia 2024 09:30A M Raquel Navarro CNP Not available Not available Not available SURG[place] @ [facility] 20[place] 07:30A M Brannon Benson MD Not [...] hip. Dr. Benson's protocol . 2024 025 [email or web address] [facility], [address], [place], [address], 05/11/2024 14:24:10 Medication Orders None recorded . [...] a4ajBk vP9nXo QUaueC m3YtLR FvZlgJ JJ8mAn HZtai3 9r5369 AC0Kqb XiEWaW nKiQtr MwF INTERFACE [facility] [address], [place], [address], 04/30/2024 13:50:56 04/30/19 25 04/30/2024 XR, hip + pelvi s, unila teral , 2 or 3 view http:/ [email or web address] ?Encry pted=s hAaTro YD8dLq bEUv6g %2BXZw aYqtaq 0bqfl% 2Fg9IQ a4ajBk vP9nXo QUaueC m3YtLR FvZlgJ JJ8mAn HZtai3 2c2609 AC0Kqb XiEWaW nKiQtr MwF INTERFACE [facility] [address], [place], [address], 04/30/2024 13:50:57 05/06/19 25 05/04/2024 MRI, lumba r spine , w/wo contr ast [facility] Access ion Number : [id number] Patien t Name: Merly Mendoza l Record Number : [id number] Date of : 1945 Date of Exam: 2024 Referr ing Physic bienvenido: Ulises Smith [address] [place] [address] Exam: MR Lumbar Spine (C-/C+ ) CPT 69730 Room Descri ption: [facility] Pion 3T MR Lumbar Spine (C-/C+ ) CPT 95286 INDICA TION: Reason For Exam: Radicu lopath y, lumbar region , , eval for progre ssion or develo pment of metast atic diseas e\E E\prev ious mri done at [facility], Rule Out: eval for progre ssion or develo pment of metast atic diseas e Reason For Exam: Radicu lopath y, lumbar region , , eval for progre ssion or develo pment of metast atic diseas e\E E\prev ious mri done at [facility], Rule Out: eval for progre ssion [...] S: There is atroph y of the sas programmer analyst ior parasp inal muscul ature. Multip le [...] onical ly Signed By: Stacie lange MD [facility] ([facility]) [address] [facility] [place] [address], 05/05/2024 14:29:36 Result Notes None recorded. Problems Name Problem SNOMED Code Status Onset Date Resolution Date Notes Provider Name and Address Organization Details Recorded Time Lumbar radiculopat hy 219272018 Active 2023 COLEEN roman [place] - [facility] 4 09:58:25 Osteoarthri tis of left hip joint 1913273324817 08 Active 2024 Brannon Benson MD [address], [facility] [place], [address], [facility] 17:13:47 Osteoarthri tis of left knee joint 4610966983659 09 Active 2024 Raissa martinez PA-C [address], [place], [address], [facility] 10:57:49 Problem Notes None recorded. Procedures Surgical History Date Name Laterality Status Provider Name and Address Organization Details Recorded Time 07/20/2024 JZKNEE INJ completed Raissa Mancilla PA-C [address], [place], [address], [facility] 07/20/2024 10:57:41 01/28/2024 JZKNEE INJ completed Raissa Mancilla PA-C [address], [place], [address], [facility] 01/28/2024 15:41:55 10/28/2023 JZKNEE INJ completed Raissa Mancilla PA-C [address], [place], [address], [facility] 10/28/2023 14:21:09 Imaging Results None recorded. Procedure Notes None recorded. Medical Equipment None Reported. Allergies Allergen ID Allergen Name Allergen Category Reaction Reaction Severity Criticality Documentation Date Start Date Code Code System Note Provider Name and Address Organization Details Recorded Time 635462 Non-stero idal anti-infl ammatory agent (product) medicatio n Not available Not available Not available 04/30/2024 94616 005 SNOMED Caridad lizama [facility] 13:40:03 Medications Name Sig Start Date Stop [...] Updated DateTime 04/27/2024 157.48 cm OMEGA RODARTE [facility] 04/27/2024 14:18:22 Date Recorded Body height Body mass index (BMI) Body weight Provider Name and Address Organization Details Last Updated DateTime 04/27/2024 157.48 cm 34.5 kg/m2 44870.8 g NEELIMA CABALLERO MD [facility] 04/27/2024 11:30:50 Date Recorded Body height Body mass index (BMI) Body weight Provider Name and Address Organization Details Last Updated DateTime 04/30/2024 154.94 cm 35 kg/m2 74495.59 g Caridad Ferreira [facility] 04/30/2024 13:36:54 Date Recorded Body height Body mass index (BMI) Body weight Provider Name and Address Organization Details Last Updated DateTime 07/20/2024 154.94 cm 35 kg/m2 54215.59 g Carolina Balderrama [facility] 07/20/2024 10:42:25 Date Recorded Body height Body mass index (BMI) Body weight Provider Name and Address Organization Details Last Updated DateTime 01/28/2024 160.02 cm 34.9 kg/m2 48212.7 g Jesus Medel [facility] 01/28/2024 12:52:10 Social History None recorded. Functional Status None recorded. Mental Status None recorded. Family History Nothing Reported. Medical History No medical history recorded. Gynecological HistoryNo gynecological history recorded. Obstetrics History GPAL:G 0 P 0 0 0 0 Past Encounters Encounter ID Performer Location Encounter Start Date Encounter Closed Date Diagnosis/Indication Diagnosis SNOMED-CT Code Diagnosis ICD10 Code Diagnosis Note [id number] Ulises Smith MD [facility] [address] [place], [place] [address] 09/19/2023 08:48:43 10/16/2023 14:03:11 Lumbar radiculopathy 249613842 M54.16 [id number] Ulises Smith MD [facility] [address] [place], [place] [address] 10/18/2023 08:52:55 11/12/2023 15:26:18 Lumbar radiculopathy 785534326 M54.16 [id number] Raissa shaw PA-C [facility] [address] [place], [place] [address] 10/28/2023 08:21:57 11/19/2023 15:47:54 Pain of left knee joint 9832434298 29135 M25.562 Osteoarthr itis of left knee joint 9114950313 54737 M17.12 [id number] Raissa shaw PA-C [facility] [address] [place], [place] [address] 01/28/2024 12:36:45 02/12/2024 12:01:15 Osteoarthritis of left knee joint 7683839505 82411 M17.12 [id number] Raissa shaw PA-C [facility] [address] [place], [place] [address] 04/27/2024 10:51:13 05/11/2024 10:05:32 Osteoarthritis of left knee joint 0477311857 82058 M17.12 Osteoarthr itis of left hip joint 6299740637 05899 M16.12 Ulises Smith MD [facility] [address] [place] [address] 04/27/2024 14:08:58 05/11/2024 15:42:47 Lumbar radiculopathy 270703518 M54.16 [id number] MD [facility] [address] [place] [address] 04/30/2024 13:19:05 05/11/2024 14:24:10 Osteoarthritis of left hip joint 0656885142 80650 M16.12 [id number] WILLIAM [facility] [address] [place] [address] 07/20/2024 10:28:50 07/28/2024 15:32:21 Osteoarthritis of left knee joint 0497448381 57512 M17.12 Health Concerns Section Related Observation LastModified by Organization Detai ls LastModified Time None Recorded Concern Status LastModified by Organization Details LastModified Time None Recorded Advance Directives Directive None Recorded Payers Encounter Date Sequence Insurance Name Policy Number Policy Reyes Covered Member ID Reyes Member ID Guarantor Name 01/28/2024 1 [employer] MED[employer]VANTAGE PLAN (MEDICARE REPLACEMENT HMO) [id number] 1 Merly Pérez Canedy [id number] Merly Canedy 04/27/2024 1 [employer] MEDICARE ADVANTAGE PLAN (MEDICARE REPLACEMENT HMO) [id number] 1 Merly Pérez Canedy [id number] Merly Canedy 04/27/2024 1 [employer] MED[employer] ADVANTAGE PLAN (MEDICARE REPLACEMENT HMO) [id number] 1 Merly Pérez Canedy [id number] Merly Canedy 04/30/2024 1 [employer] MED[employer] ADVANTAGE PLAN (MEDICARE REPLACEMENT HMO) [id number] 1 Merly Beto Canedy [id number] Merly Canedy 07/20/2024 1 [employer] MED[employer] ADVANTAGE PLAN (MEDICARE REPLACEMENT HMO) [id number] 1 Merly Pérez Canedy [id number] Merly Canedy Notes Date Note Type Note [...] noted above.X-rays ordered, obtained and reviewed at [facility] 4 views left knee demonstrate bone on bone articulation medial compartment, subchondral sclerosis, tricompartmental osteophyte formationImpression: End-stage osteoarthritis left kneePlan: Treatment options reviewed at length with the patient. She would like to proceed with reppeat cortisone injection today for her left knee. She will follow up with me in 3 months for a recheck and will call sooner with any difficulty. Questions answered.myAchy speech recognition spray booth operator software was used to create portions of this document. An attempt at proofreading has been made to minimize errors. Please call for corrections. Raissa Mancilla PA-C [address] [facility] [address], [place], [address], [facility] - [facility] 01/28/2024 15:42:24 04/27/2024 text/html HPI: 78-year-old female presents with longstanding low back and radiating left leg pain. Seen previously for similar symptoms here 6 months ago. If anything her symptoms have worsened. She has had multiple injections primarily directed at her hip and knee arthrosis. Knee injections have been helpful. Hips not so much. She went to [facility]. Some spine injections were performed with minimal benefit. Reports back pain worse than leg pain but leg pain progressive when she walks. Consistent with neuro claudication. No bowel or bladder complaints WORK STATUS: Retired [employer] has been reviewed, updated, and is located in the patient's chart RADIOGRAPHS: Lumbar spine MRI performed last October notable for spondylosis without evidence of ongoing nerve root compression at any level. PHYSICAL EXAMINATION: Ulises Smith MD [address] [facility] [address], [place], [address], [place] - [facility] 04/27/2024 15:45:02 04/27/2024 text/html I am seeing [...] leg today. She has been seen at [facility]. She reports she had multiple lumbar injections in the left hip intra-articular injection. The intra-articular hip injection gave her the most relief however unfortunately only worked for 4 days. She reports that [facility] told her there was nothing more that [...] Stinchfield test.X-rays ordered, obtained and reviewed at [facility] 4 views left knee demonstrate bone on [...] hip to discuss total hip arthroplasty. Questions answered.myAchy speech recognition spray booth operator software was used to create portions of this document. An attempt at proofreading has been made to minimize errors. Please call for corrections. Raissa Mancilla PA-C [address] [place] [address] [address] [facility], [place], [address], [facility] 05/11/2024 09:57:29 07/20/2024 text/html [...] continued conservative treatment. Raissa Mancilla PA-C [address] [facility] [address], [place], [address], [facility] - [facility] 07/20/2024 10:58:23 OBGyn Episode No OBEpisode recorded.
== END 2024-08-05 16:21 | disposition home or self-care (01) ==
LOC: HO.HUSH 15:12
PROVIDERS: PCP Internal Medicine; Visit Provider Nurse Practitioner Family
DX: Z13.9 Encounter for screening, unspecified (principal); N20.0 Calculus of kidney
CPT/HCPCS: 99204

== ENCOUNTER 2024-08-05 15:11 | Outpatient (REF) | payer MEDICARE, SELFPAY | END 2024-08-05 15:12 | disposition home or self-care (01) | LOC: HO.LNP 15:11 | PROVIDERS: PCP Internal Medicine; Visit Provider Nurse Practitioner Family | DX: N20.0 Calculus of kidney (principal); Z13.9 Encounter for screening, unspecified | CPT/HCPCS: 81003; 82365; 88300; 99202 ==

== ENCOUNTER → 2024-08-27 12:33 | Outpatient (REF) | payer MEDICARE, SELFPAY ==
--- NOTE | 2024-08-27 12:36 | CA_ITS ---
Transthoracic Echocardiogram Patient (Last, First, Middle): Merly Mendoza M Gender: Female Date of : 1945 Age: 78 Procedure Date: 08/27/2024 Procedure Type: Transthoracic Echocardiogram Location: OP Height: 157.48 cm Weight: 84.37 kg BSA: 1.85 m2 Heart Rate: bpm BP: 150 / 60 mmHg Network Coordinator: TO Referring MD: Quique Loco MD Symptoms: I35.8 - Other nonrheumatic aortic valve disorders Study Quality: Fair Conclusions: - The left ventricular systolic function is hyperdynamic. The visually estimated ejection fraction is >70%. - Aortic valve sclerosis, but no significant stenosis. - There is mild mitral annular calcification. Findings Left Ventricle Normal left ventricular cavity size. There is mildly increased left ventricular wall thickness. The left ventricular systolic function is hyperdynamic. The visually estimated ejection fraction is >70%. There is no evidence of regional wall motion abnormalities. There is no dynamic left ventricular outflow tract obstruction. Evidence suggests grade I (mild) diastolic dysfunction. Right Ventricle Normal right ventricular cavity size and systolic function. Atria Both atria are normal in size. Aortic Valve There is moderate calcification of the aortic valve. There is no aortic valve stenosis. There is no aortic valve regurgitation. Mitral Valve The mitral valve appears normal. There is mild mitral annular calcification. There is no mitral valve regurgitation. There is no mitral valve stenosis. Pulmonic Valve The pulmonic valve is likely normal. Tricuspid Valve There is trace tricuspid valve regurgitation. There is no evidence of pulmonary hypertension. Great Vessels The asc aorta is normal in size. Venous The inferior vena cava is normal in size and collapses greater than 50% with inspiration. Pericardium/Pleural There is a trivial pericardial effusion. Prior Study Comparison No significant change compared to prior study dated: 08/09/2021. Measurements 2D Linear Measurements IVSd: 1.23 0.6-0.9/0.6-1.0 cm LVIDd: 3.62 3.9-5.3/4.2-5.9 cm LVIDd Index: 1.96 2.4-3.2/2.2-3.1 cm/m2 LVIDs: 2.23 2.0-3.6 cm LVPWd: 1.13 0.7-1.1 cm LA Diam: 3.20 2.7-3.8/3.0-4.0 cm LAIDs Index: 1.73 1.5-2.3 cm/m2 LV Mass: 173.07 67-162/88-224 g LV Mass Index: 93.55 43-95/49-115 g/m2 LVOT Diam: 2.10 3.0+(-)1.3 cm 2D Systolic Function EF 4C: 68.40 >55% EF 2C: 71.10 >55% EF BiP: 68.50 >55% Mitral Valve MV VTI: 0.34 MV Pk Tin: 1.29 MV Mn Tin: 0.79 MV Pk Grad: 7.00 MV Mn Grad: 3.00 MV Pk E: 0.87 MV PK A: 1.14 MV Decel Time: 219.00 E/A: 0.80 E'Lateral: 3.81 E'Medial: 3.37 E/E' Med: 25.80 E/E' Lat: 22.80 PHT: 64.00 MVA PHT: 3.44 MVA Continuity: 3.12 Decel Canadian: 3.98 Aortic Valve AoV Pk Tin: 2.19 AoV Mn Tin: 1.64 AoV VTI: 0.48 AoV Pk Grad: 19.00 Aov Mn Grad: 12.00 TABATHA Cont.VTI: 2.24 LVOT LVOT Pk Tin: 1.29 LVOT Mn Tin: 0.88 LVOT VTI: 0.31 LVOT Pk Grad: 7.00 LVOT Mn Grad: 4.00 LVOT Diam: 2.10 LVOT Area: 3.46 Diastolic Function MV Pk E: 0.87 MV Pk A: 1.14 E/A: 0.80 E'Medial: 3.37 E/E' Med: 25.80 E' Laterial: 3.81 E/E' Lat: 22.80 Right Ventricle TAPSE (mm): 18.10 TVS' Tin: 13.40 Tricuspid Valve TR Pk Tin: 2.25 TR Pk Grad: 20.00 RA Press: 3.00 RVSP: 23.00 Great Vessels Aorta Sinus of Valsalva: 2.98 2.0-3.5 cm Ao Asc: 3.50 2.1-3.4 cm Updated in Other Vendor System with Status of Final Quique Loco MD electronically signed on 08/28/2024 4:35:53 PM with status of Final
--- OUTSIDE RECORDS SUMMARY | 2024-08-27 14:53 | XMS_ITS | Continuity of Care Document ---
Author Organization [place] - [facility], [facility] [address]nd floor Address [address] [place] [address] Care Team Providers Care Hospice Superintendent Name Role Phone JESSE RAYMOND Primary Care Provider Assessment Encounter Date Assessment Date Assessment LastModified by Organization Details LastModified Time 08/26/2024 08/26/2024 HPI: The patient presents for History and Physical and surgical consent for planned Lefttotal hip on 08/31/24. Past family, medical, social history and review of systems has been reviewed, updated and signed by me and is located in the patient's chart. The patient reports ongoing marked pain and difficulty with theLeft Hip Reports major impact in daily activities. IMAGING: Previously obtained X-rays reviewed in the office today on [facility]: AP pelvis, Marking AP of the Left hip, and Direct Lateral of the Left Hip. Demonstrate end-stage osteoarthritis of the Left hip with bone on bone articulation. Subchondral sclerosis and osteophyte formation are visible. There is no significant dysplasia. PLAN: The patient has been thoroughly counseled regarding their hip osteoarthritis. The alternatives and the potential risks, benefits and complications of total hip replacement have been reviewed. The risks including infection, blood clot, persistent, new or increased pain, stiffness, scarring, limp, numbness, blood vessel, nerve, ligament or bone damage, malalignment, leg length inequality, instability, implant loosening, wear or breakage, risk of transfusion transmitted diseases, risk of major medical complications including heart attack and stroke, and risk to life and limb have been reviewed. I reviewed the risks and benefits of surgery with the patient in the office today. I largely reassured her about her postoperative recovery. I assured her she can take care of her cats postoperatively. We discussed the importance of participating in outpatient physical therapy. A detailed consent form has been reviewed, as well as the fact that other potential complications, or the need for other procedures now, or in the future, may arise. The usual post-operative course has been outlined, as well as the fact that at times people may deviate substantially from this. The importance of participation in typically painful post-operative hip replacement exercises has been reviewed. The importance of lifelong total hip precautions has been reviewed. All questions have been answered, the patient appears to understand well, and very much wishes to proceed with total hip replacement surgery. Consent forms were signed and pre-operative instructions reviewed. VR1 speech recognition liability claims manager software was used to create portions of this document. An attempt at proofreading has been made to minimize errors. Please call for corrections. [email or web address] Not available 08/26/2024 12:29:19 Plan of Treatment Reminders Order Date Submit Date Provider Last Modified By Organization Details Last Modified Time Details Appointments SURGERY @ [facility] 2024 07:30A M Brannon Benson MD Not [...] recorded . Surgeries None recorded . Imaging None recorded . Medication Orders None recorded . Patient TargetsNo targets recorded. Patient InstructionsNo instructions recorded. Reason for Referral None Reported. Problems Name Problem SNOMED Code Status Onset Date Resolution Date Notes Provider Name and Address Organization Details Recorded Time Lumbar radiculopat hy 487435289 Active 2023 COLEEN roman [place] - [facility] 4 09:58:25 Osteoarthri tis of left hip joint 5781640187870 08 Active 2024 Brannon Benson MD [address] [place] [address] [address], [place], [address], [place] - [facility] 17:13:47 Osteoarthri tis of left knee joint 8241247418200 09 Active 2024 Raissa martinez PA-C [address], [place], [address], [facility] 10:57:49 Problem Notes None recorded. Procedures Surgical History Date Name Laterality Status Provider Name and Address Organization Details Recorded Time 07/20/2024 JZKNEE INJ completed Raissa Mancilla PA-C [address], [place], [address], [facility] 07/20/2024 10:57:41 01/28/2024 JZKNEE INJ completed Raissa Mancilla PA-C [address], [place], [address], [facility] 01/28/2024 15:41:55 10/28/2023 JZKNEE INJ completed Raissa Mancilla PA-C [address], [place], [address], [facility] 10/28/2023 14:21:09 Imaging Results None recorded. Procedure Notes None recorded. Medical Equipment None Reported. Allergies Allergen ID Allergen Name Allergen Category Reaction Reaction Severity Criticality Documentation Date Start Date Code Code System Note Provider Name and Address Organization Details Recorded Time 758217 Non-stero idal anti-infl ammatory agent (product) medicatio n Not available Not available Not available 04/30/2024 90091 005 SNOMED Caridad lizama [facility] 13:40:03 Medications Name Sig Start Date [...] Not Available Vitals Date Recorded Body height Body mass index (BMI) Body weight Provider Name and Address Organization Details Last Updated DateTime 08/26/2024 154.94 cm 35 kg/m2 42498.59 g bharat randhawa [facility] 08/26/2024 09:22:54 Social History None recorded. Functional Status None recorded. Mental Status None recorded. Family History Nothing Reported. Medical History No medical history recorded. Gynecological HistoryNo gynecological history recorded. Obstetrics History GPAL:G 0 P 0 0 0 0 Past Encounters Encounter ID Performer Location Encounter Start Date Encounter Closed Date Diagnosis/Indication Diagnosis SNOMED-CT Code Diagnosis ICD10 Code Diagnosis Note [id number] MD THOR Martinez [address] [place] [address] 08/26/2024 12:27:28 08/26/2024 12:29:28 [id number] Raquel Navarro, ARIADNA Mayes [address] [place] [address] 08/26/2024 09:13:12 08/26/2024 14:26:15 Osteoarthritis of left hip joint [id number] 73660 M16.12 Health Concerns Section Related Observation LastModified by Organization Detai ls LastModified Time None Recorded Concern Status LastModified by Organization Details LastModified Time None Recorded Payers None recorded. OBGyn Episode No OBEpisode recorded.
== END ==
LOC: HO.CARD 12:33
PROVIDERS: PCP Internal Medicine; Visit Provider Internal Medicine
DX: I35.8 Other nonrheumatic aortic valve disorders (principal)
CPT/HCPCS: 93306

== ENCOUNTER → 2024-08-27 12:36 | Outpatient (BNV) | payer MEDICARE, SELFPAY | PROVIDERS: PCP Internal Medicine; Visit Provider Internal Medicine | DX: I35.8 Other nonrheumatic aortic valve disorders (principal); I51.89 Other ill-defined heart diseases | CPT/HCPCS: 93306 ==

== ENCOUNTER 2024-10-02 09:10 | Outpatient (AMB) | payer MEDICARE, SELFPAY ==
--- OUTSIDE RECORDS SUMMARY | 2024-10-02 09:24 | XMS_ITS | Clinical Summary ---
Author Organization [facility] Address [address] [place], [place] [id number] Phone Care Team Providers Care Wire Border Assembler Name Role Phone Rodolfo Stein MD Primary Care Provider [phone] Allergies Active Allergy Reactions Criticality Noted Date Comments Aleve (Naproxen Sodium) GI Upset Medium 01/22/2014 Aspirin GI Upset Medium 01/22/2014 Latex Rash Low 01/22/2014 Nsaids (Non-Steroidal Anti-I nflammatory Drug) GI Upset 08/15/2015 Oxycodone Hcl GI Upset 08/15/2015 Medications LORazepam (ATIVAN) 0.5 MG tablet 2 qhs Active latanoprost (XALATAN) 0.005 % ophthalmic solution 1 drop into affected eye in the evening Active cholecalciferol (VIT D3) 400 unit/mL oral drops Active calcium carbonate (OS-ERROL) 1,500 mg (600 mg elemental) tablet 1 tablet with meals Active simvastatin (ZOCOR) 20 MG tablet 1 tablet in the evening Active fluoride, sodium, 0.5 mg (1.1 mg sod.fluorid)/mL Drop 1 ml Active diphenhydrAMINE (BENADRYL) 25 mg capsule 1 capsule as needed Active levothyroxine (SYNTHROID) 75 MCG tablet 1 tablet on an empty stomach in the morning Active MULTIVIT-MINERAL S/FERROUS FUM (MULTI VITAMIN ORAL) 1 cap(s) Active LACTOBACILLUS ACIDOPHILUS (PROBIOTIC ORAL) 1 cap(s) Act chapo DOCUSATE CALCIUM (STOOL SOFTENER ORAL) Active zolpidem (AMBIEN CR) 12.5 MG CR tablet 1 tablet at bedtime as needed Active ascorbic acid, vitamin C, (VITAMIN C) 500 MG tablet Take 500 mg by mouth daily. Active cinnamon bark (CINNAMON) 500 mg capsule Take 500 mg by mouth daily. 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 Staging:Clinical:Stage SHANIKA(T2, N2b, M0) - Unsigned Diabetes mellitus 02/09/2014 Overview (04/23/2014): Diabetes mellitus Uncoded NIDDM 01/22/2014 Overview (04/23/2014): NIDDM Depressive disorder 01/22/2014 Overview (04/23/2014): Depression Anxiety 01/22/2014 Overview (04/23/2014): Anxiety Hypercholesterolemia 01/22/2014 Overview (04/23/2014): Hypercholesterolemia Hypothyroidism 01/22/2014 Overview (04/23/2014): Hypothyroidism Social History Tobacco Use Types Packs/Day Years Used Date Smoking Tobacco: Never Smokeless Tobacco: Never Education Answer Date Recorded Are you interested in more education? Not on maxine e 06/29/2022 Are you concerned about learning? Not on file 06/29/2022 No 06/29/2022 No 06/29/2022 Digital Access Answer Date Recorded No 07/30/2022 No 07/30/2022 Reliable internet access at home? Not on file 07/30/2022 Device with a working camera? Not on file Comments Unknown Sex and Gender Information Value Date Recorded Sex Assigned at Not on file Legal Sex Female 1:09 PM EST Gender Identity Not on file Sexual Orientation Not on file Last Filed Vital Signs Vital Sign Reading Time Taken Comments Blood Pressure 131/69 02/28/2018 3:52 PM EST Pulse 82 02/28/2018 3:52 PM EST Temperature 36.5 C (97.7 F) 02/28/2018 3:52 PM EST Respiratory Rate 16 03/19/2014 11:35 AM EST Oxygen Saturation 97% 02/28/2018 3:52 PM EST Inhaled Oxygen Concentration - - Weight 87.7 kg (193 lb 4.8 oz) 02/28/2018 3:52 P M EST Height 158.8 cm (5' 2.5 ) 02/28/2018 3:52 PM EST Body Mass Index 34.79 02/28/2018 3:52 PM EST Plan of Treatment Health Maintenance Due Date Last Done Comments Adult Td,Tdap Booster 1945 BLOOD PRESSURE 1945 HEMOGLOBIN A1C 1945 TSH LEVEL 1945 DEPRESSION SCREENING 1957 HEPATITIS C SCREENING 09/25/1963 PNEUMOCOCCAL VACCINES (50+ years) (1 of 2 - PCV) 1964 ZOSTER VACCINES (1 of 2) 1964 OSTEOPOROSIS SCREENING INITI AL (ONE-TIME) 2010 DIABETIC EYE EXAM 04/23/2014 URINE MICROALBUMIN/CREATININ E RATIO 04/23/2014 RSV VACCINE (1 - 1-dose 75+ series) 2020 COVID-19 VACCINE (3 - 2023-2 5 season) 2023 06/29/2020, 06/08/2020 SMOKING STATUS SCREENING (On ce After 26 Yrs) Completed 02/28/2018 HEPATITIS A VACCINES Aged Out No long er eligible based on patient's age to complete this topic HIB VACCINES Aged Out No longer eligi ble based on patient's age to complete this topic MENINGOCOCCAL VACCINES (ACWY) Aged Out No longer eligible based on patient's age to complete this topic MENINGOCOCCAL VACCINES (B) Aged Out N o longer eligible based on patient's age to complete this topic Medical Devices Not on file Insurance [facility] [address] [place] [id number] [place] [id number] [place], [place] [id number] [facility] Care Teams Wire Border Assembler Relationship Specialty Start Date End Date Rodolfo Stein MD [address] [place] [id number] PCP - General Internal Medicine 01/22/14 Additional Source Comments The information contained in this document represents components of the legal health record. It is not the complete legal health record.[facility]
--- OUTSIDE RECORDS SUMMARY | 2024-10-02 09:24 | XMS_ITS | Encounter Summary ---
Author Organization [facility] Address [address] [place] [address] Care Team Providers Care Mail Messenger Name Role Phone Yaya Dobbins MD Primary Care Provider [phone] Encounter Details Date Type Department Care Team (Late st Contact Info) Description 09/19/2024 Lab Requisition [facility] - Main Lab [address] [place] [address] Yaya Dobbins MD [address] [place] [address] Hyperlipidemia, unspecified Social History Tobacco Use Types Packs/Day Years Used Date Smoking Tobacco: Never Assessed Comments Unknown Sex and Gender Information Value Date Recorded Sex Assigned at Not on file Legal Sex Female 12:48 PM EST Gender Identity Not on file Sexual Orientation Not on file documented as of this encounter Plan of Treatment Not on file documented as of this encounter Procedures Procedure Name Priority Date/Time Associated Diagnosis Comments COMPLETE BLOOD COUNT Routine 09/21/2024 4:46 AM EDT Hyperlipidemia, unspecified COMPREHENSIVE METABOLIC PANEL Routine 09/21/2024 4:46 AM EDT Hyperlipidemia, unspecified documented in this encounter Results * (ABNORMAL) Comprehensive metabolic panel (09/21/2024 4:46 AM EDT) Sodium 144 133 - 145 mmol/L LAB CHEMISTRY METHOD 09/21/2024 11:20 AM T [facility] Potassium 4.0 3.5 - 5.5 mmol/L LAB CHEMISTRY METHOD 09/21/2024 11:20 AM EDT [facility] Chloride 114(H) 96 - 110 mmol/L LAB CHEMISTRY METHOD 09/21/2024 11:20 AM [facility] CO2 22 21 - 32 mmol/L LAB CHEMISTRY METHOD 09/21/2024 11:20 AM [facility] Anion Gap 8 3 - 11 LAB CHEMISTRY METHOD 09/21/2024 11:20 AM [facility] Glucose 82 70 - 100 mg/dL LAB CHEMISTRY METHOD 09/21/2024 11:20 AM [facility] BUN 13 5 - 25 mg/dL LAB CHEMISTRY METHOD 09/21/2024 11:20 AM [facility] Creatinine 0.61 0.50 - 1.10 mg/dL LAB CHEMISTRY METHOD 09/21/2024 11:20 AM [facility] eGFR 92 >=60 mL/min/1. 73m2 LAB CHEMISTRY METHOD 09/21/2024 11:20 AM [facility] Comment:Calculation based on the Chronic Kidney Disease Epidemiology Collaboration (CKD-EPI) equation refit without adjustment for race. BUN/Creatinine Ratio 21.3 LAB CHEMISTRY METHOD 09/21/2024 11:20 AM [facility] Calcium 9.0 8.5 - 10.5 mg/dL LAB CHEMISTRY METHOD 09/21/2024 11:20 AM [facility] AST (SGOT) 40 10 - 42 unit/L LAB CHEMISTRY METHOD 09/21/2024 11:20 AM [facility] ALT (SGPT) 31 10 - 60 unit/L LAB CHEMISTRY METHOD 09/21/2024 11:20 AM [facility] Alkaline Phosphatase 140(H) 42 - 121 unit/L LAB CHEMISTRY METHOD 09/21/2024 11:20 AM [facility] Total Protein 5.3(L) 6.0 - 8.0 g/dL LAB CHEMISTRY METHOD 09/21/2024 11:20 AM [facility] Albumin 3.1(L) 3.2 - 5.0 g/dL LAB CHEMISTRY METHOD 09/21/2024 11:20 AM [facility] Total Bilirubin 0.5 0.0 - 1.4 mg/dL LAB CHEMISTRY METHOD 09/21/2024 11:20 AM [facility] Blood Venous blood specimen / Unknown Venipuncture / Unknown 09/21/2024 4:46 AM EDT 09/21/2024 11:05 AM EDT us Yaya Dobbins MD LAB BLOOD ORDERABLES Final Resu lt [facility] [address] [place] [address], * (ABNORMAL) Complete blood count (09/21/2024 4:46 AM EDT) WBC 5.6 4.8 - 10.8 K/mcL LAB HEMETOLOGY METHOD 09/21/2024 10:22 AM [facility] RBC 3.10(L) 3.80 - 4.80 M/mcL LAB HEMETOLOGY METHOD 09/21/2024 10:22 AM [facility] Hemoglobin 9.8(L) 11.5 - 16.0 g/dL LAB HEMETOLOGY METHOD 09/21/2024 10:22 AM [facility] Hematocrit 31.4(L) 35.0 - 47.0 % LAB HEMETOLOGY METHOD 09/21/2024 10:22 AM [facility] MCV 101.0(H) 79.0 - 98.0 FL LAB HEMETOLOGY METHOD 09/21/2024 10:22 AM [facility] MCH 31.5 27.0 - 32.0 pcg LAB HEMETOLOGY METHOD 09/21/2024 10:22 AM [facility] MCHC 31.2(L) 32.0 - 37.0 g/dL LAB HEMETOLOGY METHOD 09/21/2024 10:22 AM EDT [facility] RDW 15.7(H) 11.0 - 15.0 % LAB HEMETOLOGY METHOD 09/21/2024 10:22 AM EDT [facility] Platelets 273 130 - 400 K/mcL LAB HEMETOLOGY METHOD 09/21/2024 10:22 AM EDT [facility] MPV 10.6 7.0 - 11.0 FL LAB HEMETOLOGY METHOD 09/21/2024 10:22 AM EDT [facility] NRBC 0.0 <1.0 % LAB HEMETOLOGY METHOD 09/21/2024 10:22 AM EDT [facility] NRBC Absolute 0.00 <0.10 K/mcL LAB HEMETOLOGY METHOD 09/21/2024 10:22 AM EDT [facility] Blood Venous blood specimen / Unknown Venipuncture / Unknown 09/21/2024 4:46 AM EDT 09/21/2024 10:02 AM EDT Yaya Dobbins MD LAB BLOOD ORDERABLES Final Resu lt [facility] [address] [place] [address], documented in this encounter Visit Diagnoses Diagnosis Hyperlipidemia, unspecified documented in this encounter Care Teams Mail Messenger Relationship Specialty Start Date End Date Yaya Dobbins MD [address] [place] [address] PCP - General Internal Medicine 09/05/24 documented as of this encounter
--- NOTE | 2024-10-02 10:00 | A.OFFPC_ITS ---
Vital Signs 10/02/24 10:01 Height 5 ft 2 in Weight 189 lb BMI 34.6 BP 171/75 H Respiration 16 Pulse 82 Pulse Source Pulse Oximeter Temp 97.5 F Temp Source Temporal Artery Scan Pulse Oximetry (%) 99 Oxygen Delivery Method Room Air Intake Visit Reasons: discharge rehab by [facility] on 09/25/24 Intake Note: Visit Reason: TCM Intake Note: Patient is here for hospital discharge follow up from [facility] on 09/03/2024 to [facility] and was discharged from [facility] on 09/25/2024 now at the [facility] Training Personnel Supervisor Required: No Transmission Mechanic: Not Required per policy Accompanied by: friend Allergies oxycodone (OXYCODONE) Allergy (Severe, Verified 10/02/24 13:09) N/V aspirin (ASPIRIN) Allergy (Intermediate, Verified 10/02/24 13:09) GI UPSET/BLEEDING latex (LATEX) Allergy (Intermediate, Verified 10/02/24 13:09) RASH NSAIDS (Non-Steroidal Anti-Inflamma (NSAIDS (NON-STEROIDAL ANTI-INFLAMMA) Allergy (Intermediate, Verified 10/02/24 13:09) GI UPSET/BLEEDING naproxen (From Aleve) Allergy (Verified 10/02/24 13:09) Diarrhea Medication List - Last Reconciled 10/02/24 by Trini Araujo PA-C ascorbic acid (vitamin C) ER 1,000 mg PO DAILY carvedilol 3.125 mg PO BID diclofenac sodium 1% (Arthritis Pain (diclofenac)) 4 grams topical QID 30 days gabapentin mg PO glipizide 5 mg PO BID 90 days latanoprost 0.005% 1 drp ophthalmic (eye) DAILY levothyroxine 75 mcg PO .QOD levothyroxine 50 mcg PO .QOD lorazepam 1 mg PO ONCE PRN multivitamin 1 tab PO DAILY pantoprazole 40 mg PO DAILY pyridoxine (vitamin B6) 100 mg PO DAILY 90 days simvastatin 20 mg PO BEDTIME Tobacco use date assessed: 10/02/24 Fall risk assessment: No Falls in past year Last assessed Fall Risk: 10/02/24 Dental Screening Dental Screen Date: 10/02/24 Did you have a dental visit in the last 12 months?: Yes Did you have a dental problem in the last 6 months where you did not have access to dental care?: No Was dental information given to patient?: Patient has dentist [facility] Comments History of Present Illness Details Patient presents to the office for a TCM visit. Date of admission: 08/31/2024 Date of discharge: 09/03/2024 This is a Follow-up from admission at [facility] on 09/03/2024 to [facility] and was discharged from [facility] on 09/25/2024 now at the [facility]/Hospital Course/Discharge Summary: : The patient is a 79-year-old female presenting for TCM following total left hip arthroplasty and management of medication issues. The patient underwent a total left hip arthroplasty on August 31, 2024, performed by Dr. Brannon Renteria at [facility]. She was discharged on September 03, 2024, and subsequently went to [facility] for rehabilitation before moving to the [facility] for respite care. The patient reports significant swelling and tenderness in the left leg, particularly in the calf area, raising concerns for a possible deep vein thrombosis. She has a history of being on Eliquis for 30 days post-surgery but is currently off anticoagulation therapy. The patient is experiencing confusion regarding her levothyroxine dosing, which was altered following a recent blood test. She is currently taking 50 mg five days a week and 75 mg two days a week, but the rationale for this regimen is unclear to her. Additionally, there is an issue with her medications being potentially discarded by a contractor, leading to difficulties in managing her prescriptions, particularly for controlled substances like lorazepam. Discharged to/Current Location: Patient normally lives at home alone although at this time she is currently at the [facility] for respite care for the next 2 weeks she believes Lives with: Self Diagnosis: Left hip osteoarthritis Procedures performed: Left total hip arthroplasty New medications: Patient was prescribe tramadol for course of 7 days, she was prescribed Eliquis for course of 30 days which she has completed. She is also on gabapentin 100 mg daily x4 days then she was instructed to discontinue. No other new medications were added. Discontinued medications: Patient was to discontinue tramadol after 7 days, discontinue Eliquis after 30 day course on 10/01/2024 and discontinue gabapentin after 4 days which she has done. Change medications/dosing: No changes in medications or dosing Pending labs: No pending labs are indicated Pending diagnostic test: No pending diagnostic test are indicated although patient reporting left lower extremity pain and has calf tenderness and pitting edema concerned for DVT therefore patient was sent to the emergency department for further evaluation management for possible DVT due to recent surgery to the left hip Any Follow-up Labs required? No follow-up labs required Any Follow-up Diagnostic test required? No follow-up diagnostic test were required although patient sent to the ER for DVT rule out How are you feeling? Patient reports she is feeling better although still in pain especially to her left lower extremity and in her groin area she reports. She has been overwhelmed with possibly losing her medications by a contractor. I explained to her that she may need to file a police report if the contractor discarded her medications to make sure that the contractor actually discarded them and not actually took them although patient is not currently at her home therefore I am comfortable refilling her medications including the Ativan due to she is at the [facility] and has her medications in her hand. Are you in any pain or discomfort? Patient reports left lower leg pain and left groin pain Do you have any questions about your condition or discharge instructions? Patient does not have any questions about her condition or her discharge instructions other than why she is having left lower leg pain and if she can get her medications refilled after a contractor possibly discarded her medications she is unsure why Were you able to get your medications filled? She was able to get all her medications feels but needs refills today Do you have any questions about your medications? All questions that she had about her medications were answered today Any referrals required? She denies requiring any referrals at this time and she followed up with MARITZA's her orthopedic surgeon yesterday and was told everything was okay. Although she reported to them that she felt like she may have a DVT and she reported that they told her she does not have a DVT. She felt like she had a DVT due to left lower extremity pain and swelling. I believe she may also have a DVT therefore I sent her to the emergency department for further evaluation and management. Were you able to schedule your follow-up appointment? Yes patient was already seen yesterday by [facility]. If home health was ordered, have they contact you? Patient is currently at the [facility] and does not feel like she will need VNA, [employer] or meals on wheels at this time Educational need/resources: What support system do you have? Daughter Reza and friend Adry Social History - Housing: Currently residing at the [facility] or's for respite care. - Family: Daughter lives in [facility], and provides support. [facility] Medical History (Updated 10/02/24 @ 13:40 by Trini Araujo PA-C) Medication management Hypothyroidism Class 1 obesity with body mass index (BMI) of 32.0 to 32.9 in adult History of mammogram (~07/15/24) Cough Establishing care with new doctor, encounter for Anxiety GI bleed Surgical History (Updated 10/02/24 @ 13:40 by Trini Araujo PA-C) S/P total left hip arthroplasty History of colonoscopy (~07/08/19) S/P tooth extraction Family History Father S/P CABG x 4 Stroke Heart attack Heart disease Mother Cancer Paternal Uncle Heart disease Diabetes Paternal Uncle Heart disease Daughter Multiple sclerosis Paternal Grandmother Diabetes Maternal Grandfather Stomach cancer Social History Housing: House Alcohol intake: current Alcohol intake frequency: holidays/special occasions only Patient Tobacco Use Status: Former Tobacco user Smoked in Last 30 Days: No Use of substances other than those prescribed or required for medical reasons: No Advance Directives: No Advance Directives Information Provided: No Do you have a plan to hurt others: No Plan service: No Current occupational status: retired Cognitive needs: Yes (walker) Hearing needs: No Vision needs: No Questionnaire PHQ-9 Over the last 2 weeks, how often have you been bothered by any of the following problems? 1. Little interest or pleasure in doing things: more than half the days 2. Feeling down, depressed, or hopeless: more than half the days 3. Trouble falling or staying asleep, or sleeping too much: not at all 4. Feeling tired or having little energy: more than half the days 5. Poor appetite or overeating: not at all 6. Feeling bad about yourself - or that you are a failure or have let yourself or your family down: not at all 7. Trouble concentrating on things, such as reading the newspaper or watching television: not at all 8. Moving or speaking so slowly that other people could have noticed. Or the opposite - being so fidgety or restless that you have been moving around a lot more than usual: not at all 9. Thoughts that you would be better off or of hurting yourself in some way: not at all Total score: 6 Depression Screening Interpretation: Positive Depression Screening Follow-up: Existing condition and In treatment Depression Screening Done: Yes 27514 - PHQ-9 Billing: Yes Source: Developed by Drs. Ulises Thomas, Adry Ochoa, Cruz Oreilly and colleagues, with an educational lorenzo from [employer]. Thrive Questionnaire Date Thrive assessed: 07/28/24 I am a: Patient What is your living situation today?: I have a steady place to live Within the past 12 months, did the food you bought not last and you didn't have the money to get more?: Never true Within the past 12 months, did you worry whether your food would run out before you got money to buy more?: Never true Do you have trouble paying for medicines?: No Do you have trouble getting transportation to medical appointments?: No Do you have trouble paying your heating and electricity bill?: No Do you have trouble taking care of your child, family member or friend?: No Do you have trouble with day-to-day activities such as bathing, preparing meals, shopping, managing finances, etc.?: No Are you currently unemployed and looking for a job?: No Are you interested in more education?: No THRIVE Score: 0 AUDIT C Alcohol Use Questionnaire (AUDIT-C) 1. How often do you have a drink containing alcohol?: Never 3. How often do you have six or more drinks on one occasion?: Never Total Score: 0 Score Reviewed/Action Taken: No MALLY-7 AMB Questionnaire MALLY-7 Date MALLY - 7 assessed: 07/28/24 Feeling nervous, anxious, or on edge: 3 = Nearly every day Not being able to stop or control worryin = Nearly every day Worrying too much about different things: 3 = Nearly every day Trouble relaxin = Nearly every day Being so restless that it is hard to sit still: 0 = Not at all Becoming easily annoyed or irritable: 0 = Not at all Feeling afraid as if something awful might happen: 2 = More than half the days Total MALLY-7 score (0-4 normal; 5-9 mild; 10-14 moderate; 15-21 severe): 14 Source: Developed by Drs. Ulises Thomas, Adry Ochoa, Cruz Oreilly and colleagues, with an educational lorenzo from [employer]. MALLY-7 Assessment Billing MALLY-7 Assessment Tool: MALLY-7 Assessment 64729 Review of Systems Const Details: - Musculoskeletal: Reports significant swelling and tenderness in the left leg, particularly in the calf area. - Neurological: Denies any new neurological symptoms. Physical exam (Primary Care) Vital Signs: Last Vital Signs Temp 97.5 F 10/02/24 10:01 Pulse 82 10/02/24 10:01 Resp 16 10/02/24 10:01 BP 171/75 H 10/02/24 10:01 Pulse Ox 99 10/02/24 10:01 Oxygen Delivery Method Room Air 10/02/24 10:01 Vitals signs have been reviewed. Care Plan Goal for BP management: <140/90 BMI result Body Mass Index 34.6 BMI Assessment/Plan discussion: High BMI High, discussed plan: lifestyle, weight reduction, dietary, physical activity and alcohol moderation Tobacco/Smoking Status: Tobacco use Status Tobacco use date assessed 10/02/24 10/02/24 10:15 Patient Tobacco Use Status Former Tobacco user 10/02/24 10:15 PHQ-9: PHQ-9 Score PHQ-9: Total score 6 10/02/24 10:34 Depression Screening Interpretation: Positive Depression Screening Follow-up: Existing condition and In treatment Thrive Assessment: Date of Thrive Assessment Date Thrive assessed 07/28/24 10/02/24 10:15 Const Other: Appearance: Alert. Oriented X3. No acute distress. Head: Normal external exam. Normocephalic. Atraumatic. Eyes: Pupils are equal, round, and reactive to light. Extraocular movements intact. Conjunctiva and sclera normal. Eyelids normal. Throat: Pharynx normal. Uvula midline. Moist mucous membranes. Neck: Normal inspection. Neck supple. Full range of motion. Cardiovascular: Normal heart rate and rhythm. Heart sound normal. No murmurs noted. Pulses normal throughout. Respiratory: No respiratory distress. Painless inspiration. Breath sounds normal. No wheezes/rales/rhonchi noted. Chest nontender. No accessory muscle usage noted or decreased air movement noted. Back: Full range of motion noted. Skin: Skin warm and dry. Normal skin color. Normal skin turgor. No rashes/lesions/lacerations noted. Extremities: Surgical scar to left hip appears within normal limits no signs of infection and Steri-Strips in place. Patient does have some tenderness to the left inner groin and left lower leg/calf area. Patient has normal pedal pulses and normal capillary refill and no cyanosis is noted. She has a normal steady gait although reports pain to the left lower extremity where the surgical site is not. There are no signs of infection. Not consistent with arterial occlusion. She has a normal steady gait with her walker. All other extremities exhibit normal range of motion nontender. Neuro: Oriented X 3. No motor deficit. No sensory deficit. Reflexes normal. Coding Level of Care Code TCM High MDM <= 14 days Complex EM visit Add On G2211 Diagnoses Hypothyroidism E03.9 S/P total left hip arthroplasty Z96.642 Left leg swelling M79.89 Medication management Z79.899 Additional Codes MALLY-7 Assessment Billing - MALLY-7 Assessment Tool: MALLY-7 Assessment 11079 ([id number]) PHQ-9 - 21831 - PHQ-9 Billing: Yes ([id number]) Time Spent (min) 60 Comment Patient instructed to go to the emergency department for further evaluation management Assessment & Plan Assessment & Plan (1) Hypothyroidism: Code(s): E03.9 - Hypothyroidism, unspecified Category: Medical Plan: The patient is experiencing confusion regarding her levothyroxine dosing, which was altered following a recent blood test. She is currently taking 50 mg five days a week and 75 mg two days a week, but the rationale for this regimen is unclear to her. It was suggested that she may benefit from a consultation with an heel packer to clarify her thyroid management. (2) S/P total left hip arthroplasty: Code(s): Z96.642 - Presence of left artificial hip joint Category: Medical Plan: The patient underwent a total left hip arthroplasty on August 31, 2024, performed by Dr. Brannon Renteria at [facility]. She was discharged on September 03, 2024, and subsequently went to [facility] for rehabilitation before moving to the [facility] for respite care. She is currently experiencing significant swelling and tenderness in the left leg, raising concerns for a possible deep vein thrombosis. An ultrasound of the left leg was recommended to rule out deep vein thrombosis. She is recommended to go to the emergency department for an [facility] DVT study. Patient understands the risks and benefits. (3) Left leg swelling: Code(s): M79.89 - Other specified soft tissue disorders Category: Medical Plan: The patient reports significant swelling and tenderness in the left leg, particularly in the calf area, raising concerns for a possible deep vein thrombosis. She has a history of being on Eliquis for 30 days post-surgery but is currently off anticoagulation therapy. An ultrasound of the left leg was recommended to rule out deep vein thrombosis. Patient to go directly to the emergency department for DVT study (4) Medication management: Code(s): Z79.899 - Other assisted (current) drug therapy Category: Medical Plan: The patient is experiencing difficulties in managing her prescriptions, particularly for controlled substances like lorazepam, due to a contractor potentially discarding her medications. It was advised that she report the incident to the police. Although will be sending the patient's prescription at this time due to she will be at the [facility] for respite and her medications will be with her. Plan Plan Patient was informed and verbally consented to the use of an ambient scribe for clinic note documentation during this visit. 1. Hypothyroidism The patient is experiencing confusion regarding her levothyroxine dosing, which was altered following a recent blood test. She is currently taking 50 mg five days a week and 75 mg two days a week, but the rationale for this regimen is unclear to her. It was suggested that she may benefit from a consultation with an heel packer to clarify her thyroid management. 2. Postoperative Care Following Total Left Hip Arthroplasty The patient underwent a total left hip arthroplasty on August 31, 2024, performed by Dr. Brannon Renteria at [facility]. She was discharged on September 03, 2024, and s ubsequently went to [facility] for rehabilitation before moving to the [facility] for respite care. She is currently experiencing significant swelling and tenderness in the left leg, raising concerns for a possible deep vein thrombosis. An ultrasound of the left leg was recommended to rule out deep vein thrombosis. 3. Suspected Deep Vein Thrombosis The patient reports significant swelling and tenderness in the left leg, particularly in the calf area, raising concerns for a possible deep vein thrombosis. She has a history of being on Eliquis for 30 days post-surgery but is currently off anticoagulation therapy. An ultrasound of the left leg was recommended to rule out deep vein thrombosis. 4. Medication Management Issues The patient is experiencing difficulties in managing her prescriptions, particularly for controlled substances like lorazepam, due to a contractor potentially discarding her medications. It was advised that she report the incident to the police to ensure that she reports this and that no one actually took her medication. Although I explained to her due to her not being at home and being currently [facility] for respite I will refill her Ativan. During the visit, we discussed the patient's postoperative care following her total left hip arthroplasty, including the need for an ultrasound to rule out deep vein thrombosis due to significant swelling and tenderness in her left leg. We also addressed her confusion regarding levothyroxine dosing and suggested a consultation with an heel packer for better management of her thyroid condition. Additionally, we advised her to report the potential medication mismanagement incident to the police to ensure proper handling of her prescriptions, especially controlled substances. Patient Instructions: - Go to the ER for an ultrasound of the left leg to rule out deep vein thrombosis. - Consider consulting with an heel packer for thyroid management. - Report the incident of potential medication mismanagement to the police. - Ensure medications are securely stored and managed while at [facility].
[2024-10-02 10:01] VITALS: BP 171/75; PULSE 82; RESP 16; TEMP 36.4; O2SAT 99; BMI 34.6
== END 2024-10-02 10:49 | disposition home or self-care (01) ==
LOC: HO.HMCSH 09:10
PROVIDERS: PCP Internal Medicine; Visit Provider Physician Assistant Medical
DX: E03.9 Hypothyroidism, unspecified (principal); Z96.642 Presence of left artificial hip joint; M79.89 Other specified soft tissue disorders; Z79.899 Other long term (current) drug therapy

== ENCOUNTER → 2024-10-02 09:10 | Outpatient (BNVA) | payer MEDICARE, SELFPAY | PROVIDERS: PCP Internal Medicine; Visit Provider Physician Assistant Medical | DX: E03.9 Hypothyroidism, unspecified (principal); M79.89 Other specified soft tissue disorders; Z96.642 Presence of left artificial hip joint; Z79.899 Other long term (current) drug therapy; Z13.31 Encounter for screening for depression | CPT/HCPCS: 96127; 99212 ==

== ENCOUNTER 2024-10-02 11:13 | Emergency (ER) | payer MEDICARE, SELFPAY ==
--- NOTE | ~2024-10-02 | US_ITS ---
EXAMINATION: US TRIPLEX LOWER EXTREMITY, LEFT CLINICAL INFORMATION: Edema, left lower extremities. COMPARISON: None available. TECHNIQUE: Color-flow triplex imaging with spectral analysis and compression Doppler were performed on the left lower extremity. FINDINGS: Respiratory variation, normal compression and augmented flow are present in the interrogated left common femoral vein, superficial femoral vein, profunda femoral vein, popliteal vein and midcalf peroneal and posterior tibial venous segments . There is no Eagle's cyst. Edema pattern without fluid collections. US/US venous duplex LE IMPRESSION: No acute deep venous thrombosis interrogated veins, left lower extremity. Negative DVT. Electronically signed by: Jeyson Wagner MD 10/02/2024 01:27 PM EDT
[2024-10-02 11:24] VITALS: BP 207/90; PULSE 79; RESP 16; TEMP 36.6; O2SAT 98; BMI 34.4
--- NOTE | 2024-10-02 11:54 | PC.NURSE ---
patient a&ox3, vss, pt has lle 2+ edema, pt c/o pain upon movement 9/10 pain, call corley within reach, plan of care ongoing.
[2024-10-02 12:06] LABS: MANUAL DIFF FLAG NO
[2024-10-02 12:08] LABS: Hematocrit 34.3 % (37.0-47.0); Hemoglobin 11.4 g/dl (12.0-16.0); Imm Gran Abs Auto 0.01 X10*3/uL (0.00-0.03); Imm Gran Pct Auto 0.2 % (0.0-0.4); Lymphocytes Absolute Auto 1.5 X10*3/uL (1.2-4.9); Mean Corpuscular HGB Conc 33.2 g/dl (31.0-35.0); Mean Corpuscular Hemoglobin 31.9 pg (27.0-33.0); Mean Corpuscular Volume 96.1 fL (80.0-98.0); NRBC Abs Auto 0.000 X10*3/uL (0.0-0.012); NRBC Pct Auto 0.0 /100WBC (0.0-0.2); Platelet Count 173 X10*3/uL (160-400); Red Blood Count 3.57 X10*6/uL (4.20-5.50); White Blood Count 5.8 X10*3/uL (4.8-10.8)
--- NOTE | 2024-10-02 12:17 | ED_ITS ---
HPI - General Adult General Chief complaint: Extremity Injury, Lower Stated complaint: Leg swollen states want an ultrasound of L leg Time Seen by Provider: 10/02/24 11:22 Source: patient, RN notes reviewed and old records reviewed Mode of arrival: ambulatory Limitations: no limitations History of Present Illness ED Provider: Melchor HPI narrative: 79-year-old female presents for evaluation of left leg pain and swelling. Patient had a recent left hip replacement on August 31, 2024 with being orthopedic surgeons. She reports that she was on Eliquis from that date until September 30. She reports that she has had steady swelling to the left lower extremity since the surgery. She reports that the swelling has been getting progressively worse. She was at her primary doctor's office today and due to pain to her left calf as well as pain in her left groin she was referred to the ER for an ultrasound to evaluate for DVT. The patient has no history of DVT or PE She reports some swelling to her right lower extremity but not as significant as the left lower extremity. Denies any recent falls or trauma She is primarily ambulatory with a walker but is able to shuffle short distances without the walker Related Data Previous Rx's ?Medication ?Instructions ?Recorded ascorbic acid (vitamin C) 1,000 mg 1,000 mg PO DAILY # 90 tabs 10/02/24 tablet,extended release carvedilol 3.125 mg tablet 3.125 mg PO BID 90 days #18 0 tabs 10/02/24 diclofenac sodium 1 % topical gel 4 g topical QID pain 30 days #100 10/02/24 (Arthritis Pain (diclofenac)) grams glipizide 5 mg tablet 5 mg PO BID 90 days #180 tab s 10/02/24 latanoprost 0.005 % eye drops 1 drp ophthalmic (eye) D AILY #2.5 10/02/24 mL levothyroxine 50 mcg tablet 50 mcg PO .COMPLEX #90 tab s 10/02/24 levothyroxine 75 mcg tablet 75 mcg PO .COMPLEX #90 tab s 10/02/24 lorazepam 0.5 mg tablet 1 mg (2 x 0.5 mg) PO ONCE WI N 10/02/24 anxiety #30 tabs multivitamin 1 tab PO DAILY #90 tabs 08/0 03/28 pantoprazole 40 mg tablet,delayed 40 mg PO DAILY #90 t abs 10/02/24 release pyridoxine (vitamin B6) 100 mg 100 mg PO DAILY 90 days #90 tabs 10/02/24 tablet simvastatin 20 mg tablet 20 mg PO BEDTIME #90 tabs Allergies Allergy/AdvReac Type Severity Reaction Status Date / Time oxycodone (OXYCODONE) Allergy Severe N/V Verified 10/02/24 13:09 aspirin (ASPIRIN) Allergy Intermediate GI Verified 10/02/24 13:09 UPSET/BLEEDING latex (LATEX) Allergy Intermediate RASH Verified 10/02/24 13:09 NSAIDS (Non-Steroidal Allergy Intermediate GI Verified 10/02/24 13:09 Anti-Inflamma (NSAIDS UPSET/BLEEDING (NON-STEROIDAL ANTI-INFLAMMA) naproxen (From Aleve) Allergy Diarrhea Verified 10/02/24 13:09 Review of Systems 2 Cardiovascular: Cardiovascular: Denies chest pain, Reports leg edema and Denies dyspnea Respiratory: Respiratory: Denies dyspnea Musculoskeletal: Musculoskeletal: Reports radiating pain into limb C omments: Left lower extremity pain including the groin and calf PMFSH Past Medical History Medical History (Updated 10/02/24 @ 13:40 by Trini Araujo PA-C) Medication management Hypothyroidism Class 1 obesity with body mass index (BMI) of 32.0 to 32.9 in adult History of mammogram (~07/15/24) Cough Establishing care with new doctor, encounter for Anxiety GI bleed Surgical History (Updated 10/02/24 @ 13:40 by Trini Araujo PA-C) S/P total left hip arthroplasty History of colonoscopy (~07/08/19) S/P tooth extraction Family History Family History Father S/P CABG x 4 Stroke Heart attack Heart disease Mother Cancer Paternal Uncle Heart disease Diabetes Paternal Uncle Heart disease Daughter Multiple sclerosis Paternal Grandmother Diabetes Maternal Grandfather Stomach cancer Social History Social History Housing: House Alcohol intake: current Alcohol intake frequency: holidays/special occasions only Patient Tobacco Use Status: Former Tobacco user Smoked in Last 30 Days: No Use of substances other than those prescribed or required for medical reasons: No Advance Directives: No Advance Directives Information Provided: No Do you have a plan to hurt others: No Plan service: No Current occupational status: retired Cognitive needs: Yes (walker) Hearing needs: No Vision needs: No Physical Exam ED Vital Signs: Vital Signs - 24 hr 10/02/24 11:24 10/02/24 14:09 Temperature 97.9 F 98 F Pulse Rate 79 72 Respiratory Rate 16 16 Blood Pressure 207/90 H 210/96 H Pulse Oximetry 98 98 Oxygen Delivery Method Room Air Room Air BMI result Body Mass Index 34.4 Const General: healthy appearing, comfortable, no acute distress, alert and awake Nutritional Appearance: well nourished Orientation/consciousness: patient oriented x3 HENMT Head: Yes normocephalic and Yes atraumatic Eyes Eyelids: Yes eyelids normal Conjunctivae: conjunctivae normal Sclerae: sclerae normal Corneas: corneas normal Pupils: Equal, round and reactive pupils present EOM: EOMs intact bilaterally Neck Neck: Yes full ROM Resp Effort & Inspection: normal respiratory effort, able to speak in complete sentences and not labored Skin General skin exam: no rashes or lesions noted and elasticity normal Neuro General: patient oriented x3 Cranial nerves: Yes Equal, round and reactive pupils present and Yes Bilaterally intact EOM present Cognition (Neuro): normal cognition Extrem Other: The patient has 1 to 2+ pitting edema to left lower extremity when compared to the right. DP pulses are 2+ and equal bilaterally. No surrounding skin changes including erythema, ecchymosis, rashes or wounds to the left lower extremity. Course Reevaluation(s) Reevaluation #1: No concerning lab abnormalities. The patient's ultrasound is negative for DVT. Discussed these results with the patient and she will follow up with her outpatient providers Time: 14:00 Reevaluation #2: Patient's repeat blood pressure was elevated to 210/96. Again she remains asymptomatic, no headache, chest pain, abdominal pain. She reports that she would not take her antihypertensive medications this morning. She is on carvedilol 3.125 mg. We offered to give her a dose of her medication here and keep an eye on her, the patient would prefer to go home and given that she is asymptomatic I feel this is appropriate. She may follow up with her doctor for her high blood pressure Time: 14:17 Medical Decision Making Medical Decision Making MDM Narrative: 79-year-old female with a past medical history significant for obesity, osteoarthritis, recent left hip arthroplasty presents for evaluation of left leg swelling. Denies any recent trauma. There are no overt signs of infection. Plan for basic labs and ultrasound to evaluate for DVT. The patient is not currently anticoagulated but was up until 2 days ago. The patient's blood pressure is significantly elevated. However she has no headache, no chest pain, no abdominal pain. Plan to repeat as she is asymptomatic Differential Diagnosis Differential Diagnoses: The differential diagnosis associated with the presentation includes DVT Leg swelling Lymphedema Dependent edema Lab Data MDM Lab Attestation statement: I reviewed the patient's lab results. The patient has no leukocytosis. She does have a mild normocytic anemia. There was no evidence of active bleeding. This could be due to her recent anticoagulation use okay some due to be recovering from a postop. Denies any black or bloody stool, since she stopped her Eliquis a couple of days ago, she can have this repeated as an outpatient. No significant electrolyte abnormalities. BUN and creatinine are within normal limits, not indicative of upper GI bleed. Patient does have a very slight elevation of AST, ALT and alk phos which could be secondary to postop. Normal bilirubin, less likely obstructive biliary pattern. The patient may again, follow up with the primary doctor. 10/02/24 12:01 10/02/24 12:01 Labs: Lab Results 10/02/24 Range/Units 12:01 WBC 5.8 (4.8-10.8) X10*3/uL RBC 3.57 L (4.20-5.50) X10*6/uL Hgb 11.4 L (12.0-16.0) g/dl Hct 34.3 L (37.0-47.0) % MCV 96.1 (80.0-98.0) fL MCH 31.9 (27.0-33.0) pg MCHC 33.2 (31.0-35.0) g/dl RDW 14.3 (11.0-16.0) % Plt Count 173 (160-400) X10*3/uL MPV 10.0 (9.4-12.3) fL Immature Gran % (Auto) 0.2 (0.0-0.4) % Neut % (Auto) 57.5 (45-73) % Lymph % (Auto) 26.0 (20-40) % [place] % (Auto) 12.9 H (2-11) % Eos % (Auto) 2.9 (0-4) % Baso % (Auto) 0.5 (0-2) % Lymph # (Auto) 1.5 (1.2-4.9) X10*3/uL [place] # (Auto) 0.8 (0.1-1.2) X10*3/uL Eos # (Auto) 0.2 (0.0-0.4) X10*3/uL Baso # (Auto) 0.0 (0.0-0.2) X10*3/uL Abs Immat Gran (auto) 0.01 (0.00-0.03) X10*3/uL Absolute Neuts (auto) 3.3 (2.0-8.3) x10*3/uL Absolute Nucleated RBC 0.000 (0.0-0.012) X10*3/uL Nucleated RBC % (auto) 0.0 (0.0-0.2) /100WBC Hold Blue Top SEE NOTE Sodium 144 (135-145) mmol/L Potassium 3.9 (3.3-5.1) mmol/L Chloride 114 H (96-108) mmol/L Carbon Dioxide 23 (22-29) mmol/L Anion Gap 11 L (12-20) BUN 12 (9-16) mg/dL Creatinine 0.61 (0.5-1.4) mg/dL Estim Creat Clear Calc 75.7 Estimated GFR > 60 Random Glucose 109 (60-115) mg/dL Calcium 9.1 (8.4-10.2) mg/dL Total Bilirubin 0.6 (0.0-1.0) mg/dL AST 66 H (5-31) U/L ALT 38 H (0-31) U/L Alkaline Phosphatase 151 H (39-117) U/L Total Protein 6.2 L (6.5-8.0) g/dL Albumin 3.8 (3.5-5.0) g/dL Radiology Impression Discussion of test interpretation with radiology: I have reviewed the radiologist's reading. Radiologist Impression: FINDINGS: Respiratory variation, normal compression and augmented flow are present in the interrogated left common femoral vein, superficial femoral vein, profunda femoral vein, popliteal vein and midcalf peroneal and posterior tibial venous segments . There is no Eagle's cyst. Edema pattern without fluid collections. US/US venous duplex LE LT IMPRESSION: No acute deep venous thrombosis interrogated veins, left lower extremity. Negative DVT. Electronically signed by: Jeyson Wagner MD 10/02/2024 01:27 PM EDT RP Discharge Plan Discharge Clinical Impression: Left leg swelling Patient Disposition: Home, Self-Care Instructions: Leg Edema (ED) Additional Instructions: Your ultrasound was negative for DVT. I recommend continuing your outpatient physical therapy. Elevate the leg when you are not regular walking. You may also benefit from compression stockings. Return for new or worsening symptoms Prescriptions: No Action ascorbic acid (vitamin C) 1,000 mg tablet extended release 1,000 mg PO DAILY Qty: 90 3RF carvedilol 3.125 mg tablet 3.125 mg PO BID 90 Days Qty: 180 3RF diclofenac sodium [Arthritis Pain (diclofenac)] 1 % gel 4 g topical QID 30 Days Qty: 100 3RF glipizide 5 mg tablet 5 mg PO BID 90 Days Qty: 180 3RF latanoprost 0.005 % drops 1 drp ophthalmic (eye) DAILY Qty: 2.5 3RF levothyroxine 75 mcg tablet 75 mcg PO .COMPLEX Qty: 90 3RF Rx Instructions: 75 mcg orally see below Patient takes levothyroxine 75 mcg then the next day 75 mcg then the next day 50 mcg then the next day 75 mcg in the next day 75 mcg them the next day 50 mcg. Therefore patient takes 2 days of 75 mcg of levothyroxine on the 3rd day she takes 50 mcg then on the 4th day she takes 75 mcg then on the 5th day she takes 75 mcg then on the 6th day she takes 50 mcg and she restarts; levothyroxine 50 mcg tablet 50 mcg PO .COMPLEX Qty: 90 3RF Rx Instructions: 50 mcg orally Patient takes levothyroxine 75 mcg then the next day 75 mcg then the next day 50 mcg then the next day 75 mcg in the next day 75 mcg them the next day 50 mcg. Therefore patient takes 2 days of 75 mcg of levothyroxine on the 3rd day she takes 50 mcg then on the 4th day she takes 75 mcg then on the 5th day she takes 75 mcg then on the 6th day she takes 50 mcg and she restarts; lorazepam 0.5 mg tablet 1 mg PO ONCE PRN (Reason: anxiety) Qty: 30 0RF multivitamin Tablet 1 tab PO DAILY Qty: 90 3RF pantoprazole 40 mg tablet,delayed release (DR/EC) 40 mg PO DAILY Qty: 90 3RF pyridoxine (vitamin B6) 100 mg tablet 100 mg PO DAILY 90 Days Qty: 90 3RF simvastatin 20 mg tablet 20 mg PO BEDTIME Qty: 90 3RF Print Language: Icelandic
[2024-10-02 12:46] LABS: Alanine Aminotransferase 38 U/L (0-31); Albumin Level 3.8 g/dL (3.5-5.0); Alkaline Phosphatase 151 U/L (39-117); Anion Gap 11 (12-20); Aspartate Amino Transferase 66 U/L (5-31); Blood Urea Nitrogen 12 mg/dL (9-16); Calcium 9.1 mg/dL (8.4-10.2); Carbon Dioxide 23 mmol/L (22-29); Chloride 114 mmol/L (96-108); Creatinine Clr Calc Pharmacy 75.7; Estimated Glomerular Filt Rate > 60; Potassium 3.9 mmol/L (3.3-5.1); Sodium 144 mmol/L (135-145); Total Protein 6.2 g/dL (6.5-8.0)
[2024-10-02 14:09] VITALS: BP 210/96; PULSE 72; RESP 16; TEMP 36.6; O2SAT 98
[2024-10-02 14:20] VITALS: BP 210/96; PULSE 72; RESP 16; TEMP 36.6; O2SAT 98
== END 2024-10-02 14:20 | disposition home or self-care (01) ==
PROVIDERS: Physician Assistant; Emergency Provider Emergency Medicine; PCP Internal Medicine
DX: M79.89 Other specified soft tissue disorders (principal); M79.605 Pain in left leg; Z96.642 Presence of left artificial hip joint; Z79.01 Long term (current) use of anticoagulants
CPT/HCPCS: 36415; 80053; 85025; 93971; 99284

== ENCOUNTER → 2024-10-02 11:52 | Outpatient (BNV) | payer MEDICARE, SELFPAY | PROVIDERS: Emergency Provider Emergency Medicine; PCP Internal Medicine; Visit Provider Radiology Diagnostic Radiology | DX: R60.0 Localized edema (principal) | CPT/HCPCS: 93971 ==

== ENCOUNTER 2024-10-29 14:31 | Outpatient (AMB) | payer MEDICARE, SELFPAY ==
--- OUTSIDE RECORDS SUMMARY | 2024-10-29 15:10 | XMS_ITS | Encounter Summary ---
Author Organization [facility] Address [address] [place] [address] Care Team Providers Care Typesetting Machine Tender Name Role Phone Yaya Dobbins MD Primary Care Provider [phone] Encounter Details Date Type Department Care Team (Late st Contact Info) Description 09/09/2024 Lab Requisition [facility] - Main Lab [address] [facility] [place] [address] Yaya Dobbins MD [address] [place] [address] Hyperlipidemia, unspecified Social History Tobacco [...] Associated Diagnosis Comments COMPLETE BLOOD COUNT Routine 09/10/2024 4:58 AM EDT Hyperlipidemia, unspecified BASIC METABOLIC PANEL Routine 09/10/2024 4:58 AM EDT Hyperlipidemia, unspecified documented in this encounter Results * (ABNORMAL) Basic metabolic panel (09/10/2024 4:58 AM EDT) Sodium 144 133 - 145 mmol/L LAB CHEMISTRY METHOD 09/10/2024 9:35 AM EDT [facility] Potassium 4.2 3.5 - 5.5 mmol/L LAB CHEMISTRY METHOD 09/10/2024 9:35 AM EDT [facility] Chloride 113(H) 96 - 110 mmol/L LAB CHEMISTRY METHOD 09/10/2024 9:35 AM [facility] CO2 26 21 - 32 mmol/L LAB CHEMISTRY METHOD 09/10/2024 9:35 AM [facility] Anion Gap 5 3 - 11 LAB CHEMISTRY METHOD 09/10/2024 9:35 AM [facility] Glucose 86 70 - 100 mg/dL LAB CHEMISTRY METHOD 09/10/2024 9:35 AM [facility] BUN 10 5 - 25 mg/dL LAB CHEMISTRY METHOD 09/10/2024 9:35 AM [facility] Creatinine 0.51 0.50 - 1.10 mg/dL LAB CHEMISTRY METHOD 09/10/2024 9:35 AM [facility] eGFR 96 >=60 mL/min/1. 73m2 LAB CHEMISTRY METHOD 09/10/2024 9:35 AM [facility] Comment:Calculation based on the Chronic Kidney Disease Epidemiology Collaboration (CKD-EPI) equation refit without adjustment for race. BUN/Creatinine Ratio 19.6 LAB CHEMISTRY METHOD 09/10/2024 9:35 AM [facility] Calcium 9.1 8.5 - 10.5 mg/dL LAB CHEMISTRY METHOD 09/10/2024 9:35 AM [facility] Blood Venous blood specimen / Unknown Venipuncture / Unknown 09/10/2024 4:58 AM EDT 09/10/2024 8:42 AM EDT us Yaya Dobbins MD LAB BLOOD ORDERABLES Final Resu lt [facility] [address] [place] [address], * (ABNORMAL) Complete blood count (09/10/2024 4:58 AM EDT) WBC 7.7 4.8 - 10.8 K/[facility] LAB HEMETOLOGY METHOD 09/10/2024 9:07 AM [facility] RBC 3.00(L) 3.80 - 4.80 M/mcL LAB HEMETOLOGY METHOD 09/10/2024 9:07 AM [facility] Hemoglobin 9.5(L) 11.5 - 16.0 g/dL LAB HEMETOLOGY METHOD 09/10/2024 9:07 AM [facility] Hematocrit 29.7(L) 35.0 - 47.0 % LAB HEMETOLOGY METHOD 09/10/2024 9:07 AM [facility] MCV 98.3(H) 79.0 - 98.0 FL LAB HEMETOLOGY METHOD 09/10/2024 9:07 AM [facility] MCH 31.5 27.0 - 32.0 pcg LAB HEMETOLOGY METHOD 09/10/2024 9:07 AM [facility] MCHC 32.0 32.0 - 37.0 g/dL LAB HEMETOLOGY METHOD 09/10/2024 9:07 AM [facility] RDW 14.1 11.0 - 15.0 % LAB HEMETOLOGY METHOD 09/10/2024 9:07 AM [facility] Platelets 304 130 - 400 K/mcL LAB HEMETOLOGY METHOD 09/10/2024 9:07 AM [facility] MPV 10.5 7.0 - 11.0 FL LAB HEMETOLOGY METHOD 09/10/2024 9:07 AM [facility] NRBC 0.0 <1.0 % LAB HEMETOLOGY METHOD 09/10/2024 9:07 AM [facility] NRBC Absolute 0.00 <0.10 K/mcL LAB HEMETOLOGY METHOD 09/10/2024 9:07 AM [facility] Blood Venous blood specimen / Unknown Venipuncture / Unknown 09/10/2024 4:58 AM EDT 09/10/2024 8:45 AM EDT Yaya Dobbins MD LAB BLOOD ORDERABLES Final Resu lt [facility] ([facility] [address] [place] [address], documented in this encounter Visit Diagnoses Diagnosis Hyperlipidemia, unspecified documented in this encounter Care Teams Typesetting Machine Tender Relationship Specialty Start Date End Date Yaya Dobbins MD [address] [place] [address] PCP - General Internal Medicine 09/05/24 documented as of this encounter
--- OUTSIDE RECORDS SUMMARY | 2024-10-29 15:10 | XMS_ITS | Encounter Summary ---
Author Organization [facility] Address [address] [place] [address] Care Team Providers Care Front Desk Assistant Name Role Phone Yaya Dobbins MD Primary Care Provider [phone] Encounter Details Date Type Department Care Team (Late st Contact Info) Description 09/07/[address] [facility] - Main Lab [address] [facility] [place] [address] Yaya Dobbins MD [address] [place] [address] Hypothyroidism, unspecified; Hyperlipidemia, unspecified Social History Tobacco Use Types [...] Associated Diagnosis Comments COMPLETE BLOOD COUNT Routine 09/07/2024 5:09 AM EDT Hypothyroidism, unspecified Hyperlipidemia, unspecified COMPREHENSIVE METABOLIC PANEL Routine 09/07/2024 5:09 AM EDT Hypothyroidism, unspecified Hyperlipidemia, unspecified documented in this encounter Results * (ABNORMAL) Comprehensive metabolic panel (09/07/2024 5:09 AM EDT) Sodium 144 133 - 145 mmol/L LAB CHEMISTRY METHOD 09/07/2024 12:51 PM EDT [facility] Potassium 4.0 3.5 - 5.5 mmol/L LAB CHEMISTRY METHOD 09/07/2024 12:51 PM EDT [facility] Chloride 111(H) 96 - 110 mmol/L LAB CHEMISTRY METHOD 09/07/2024 12:51 PM [facility] CO2 26 21 - 32 mmol/L LAB CHEMISTRY METHOD 09/07/2024 12:51 PM [facility] Anion Gap 7 3 - 11 LAB CHEMISTRY METHOD 09/07/2024 12:51 PM [facility] Glucose 80 70 - 100 mg/dL LAB CHEMISTRY METHOD 09/07/2024 12:51 PM [facility] BUN 10 5 - 25 mg/dL LAB CHEMISTRY METHOD 09/07/2024 12:51 PM [facility] Creatinine 0.60 0.50 - 1.10 mg/dL LAB CHEMISTRY METHOD 09/07/2024 12:51 PM [facility] eGFR 92 >=60 mL/min/1. 73m2 LAB CHEMISTRY METHOD 09/07/2024 12:51 PM [facility] Comment:Calculation based on the Chronic Kidney Disease Epidemiology Collaboration (CKD-EPI) equation refit without adjustment for race. BUN/Creatinine Ratio 16.7 LAB CHEMISTRY METHOD 09/07/2024 12:51 PM [facility] Calcium 8.6 8.5 - 10.5 mg/dL LAB CHEMISTRY METHOD 09/07/2024 12:51 PM [facility] AST (SGOT) 48(H) 10 - 42 unit/L LAB CHEMISTRY METHOD 09/07/2024 12:51 PM [facility] ALT (SGPT) 32 10 - 60 unit/L LAB CHEMISTRY METHOD 09/07/2024 12:51 PM [facility] Alkaline Phosphatase 106 42 - 121 unit/L LAB CHEMISTRY METHOD 09/07/2024 12:51 PM [facility] Total Protein 5.4(L) 6.0 - 8.0 g/dL LAB CHEMISTRY METHOD 09/07/2024 12:51 PM [facility] Albumin 2.9(L) 3.2 - 5.0 g/dL LAB CHEMISTRY METHOD 09/07/2024 12:51 PM EDT [facility] Total Bilirubin 0.9 0.0 - 1.4 mg/dL LAB CHEMISTRY METHOD 09/07/2024 12:51 PM EDT [facility] Blood Venous blood specimen / Unknown Venipuncture / Unknown 09/07/2024 5:09 AM EDT 09/07/2024 11:28 AM EDT us Yaya Dobbins MD LAB BLOOD ORDERABLES Final Resu lt [facility] [address] [place] [address], [place] [phone] * (ABNORMAL) Complete blood count (09/07/2024 5:09 AM EDT) WBC 8.2 4.8 - 10.8 K/mcL LAB HEMETOLOGY METHOD 09/07/2024 1:09 PM EDT [facility] RBC 3.10(L) 3.80 - 4.80 M/mcL LAB HEMETOLOGY [facility] Hemoglobin 9.3(L) 11.5 - 16.0 g/dL LAB HEMETOLOGY METHOD 09/07/2024 1:09 PM EDT [facility] Hematocrit 29.6(L) 35.0 - 47.0 % LAB HEMETOLOGY METHOD 09/07/2024 1:09 PM EDT [facility] MCV 97.0 79.0 - 98.0 FL LAB HEMETOLOGY METHOD [facility]/07[facility]2024 [facility] MCH 30.5 27.0 - 32.0 pcg LAB HEMETOLOGY METHOD 09/07/2024 1:09 PM EDT [facility] MCHC 31.4(L) 32.0 - 37.0 g/dL LAB HEMETOLOGY METHOD 09/07/2024 1:09 PM EDT [facility] RDW 13.6 11.0 - 15.0 % LAB HEMETOLOGY METHOD 09/07/2024 1:09 PM EDT [facility] Platelets 229 130 - 400 K/mcL LAB HEMETOLOGY METHOD 09/07/2024 1:09 PM EDT [facility] MPV 10.7 7.0 - 11.0 FL LAB HEMETOLOGY METHOD 09/07/2024 1:09 PM EDT [facility] NRBC 0.0 <1.0 % LAB HEMETOLOGY METHOD 09/07/2024 1:09 PM EDT [facility] NRBC Absolute 0.00 <0.10 K/mcL LAB HEMETOLOGY METHOD 09/07/2024 1:09 PM EDT [facility] Blood Venous blood specimen / Unknown Venipuncture / Unknown 09/07/2024 5:09 AM EDT 09/07/2024 11:28 AM EDT Yaya Dobbins MD LAB BLOOD ORDERABLES Final Resu lt [facility] [address] [place] [address], [place] [phone] documented in this encounter Visit Diagnoses Diagnosis Hypothyroidism, unspecified Hyperlipidemia, unspecified documented in this encounter Care Teams Front Desk Assistant Relationship Specialty Start Date End Date Yaya Dobbins MD [address] [place] [id number] PCP - General Internal Medicine 09/05/24 documented as of this encounter
--- OUTSIDE RECORDS SUMMARY | 2024-10-29 15:10 | XMS_ITS | Encounter Summary ---
Author Organization [facility] Address [address] [place] [address] Care Team Providers Care Content Publisher Name Role Phone Yaya Dobbins MD Primary Care Provider [phone] Encounter Details Date Type Department Care Team (Late st Contact Info) Description 09/11/2024 Lab Requisition [facility] - Main Lab [address] [facility] [place] [address] Yaya Dobbins MD [address] [place] [address] Hyperlipidemia, unspecified Social History Tobacco [...] Associated Diagnosis Comments COMPLETE BLOOD COUNT Routine 09/14/2024 4:53 AM EDT Hyperlipidemia, unspecified COMPREHENSIVE METABOLIC PANEL Routine 09/14/2024 4:53 AM EDT Hyperlipidemia, unspecified documented in this encounter Results * (ABNORMAL) Comprehensive metabolic panel (09/14/2024 4:53 AM EDT) Sodium 145 133 - 145 mmol/L LAB CHEMISTRY METHOD 09/14/2024 1:49 PM EDT [facility] Potassium 4.0 3.5 - 5.5 mmol/L LAB CHEMISTRY METHOD 09/14/2024 1:49 PM EDT [facility] Chloride 112(H) 96 - 110 mmol/L LAB CHEMISTRY METHOD 09/14/2024 1:49 PM [facility] CO2 26 21 - 32 mmol/L LAB CHEMISTRY METHOD 09/14/2024 1:49 PM [facility] Anion Gap 7 3 - 11 LAB CHEMISTRY METHOD 09/14/2024 1:49 PM [facility] Glucose 72 70 - 100 mg/dL LAB CHEMISTRY METHOD 09/14/2024 1:49 PM [facility] BUN 12 5 - 25 mg/dL LAB CHEMISTRY METHOD 09/14/2024 1:49 PM [facility] Creatinine 0.64 0.50 - 1.10 mg/dL LAB CHEMISTRY METHOD 09/14/2024 1:49 PM [facility] eGFR 91 >=60 mL/min/1. 73m2 LAB CHEMISTRY METHOD 09/14/2024 1:49 PM [facility] Comment:Calculation based on the Chronic Kidney Disease Epidemiology Collaboration (CKD-EPI) equation refit without adjustment for race. BUN/Creatinine Ratio 18.8 LAB CHEMISTRY METHOD 09/14/2024 1:49 PM [facility] Calcium 9.0 8.5 - 10.5 mg/dL LAB CHEMISTRY METHOD 09/14/2024 1:49 PM [facility] AST (SGOT) 43(H) 10 - 42 unit/L LAB CHEMISTRY METHOD 09/14/2024 1:49 PM [facility] ALT (SGPT) 31 10 - 60 unit/L LAB CHEMISTRY METHOD 09/14/2024 1:49 PM [facility] Alkaline Phosphatase 125(H) 42 - 121 unit/L LAB CHEMISTRY METHOD 09/14/2024 1:49 PM [facility] Total Protein 5.3(L) 6.0 - 8.0 g/dL LAB CHEMISTRY METHOD 09/14/2024 1:49 PM [facility] Albumin 2.9(L) 3.2 - 5.0 g/dL LAB CHEMISTRY METHOD 09/14/2024 1:49 PM EDT [facility] Total Bilirubin 0.5 0.0 - 1.4 mg/dL LAB CHEMISTRY METHOD 09/14/2024 1:49 PM [facility] Blood Venous blood specimen / Unknown Venipuncture / Unknown 09/14/2024 4:53 AM EDT 09/14/2024 10:55 AM EDT us Yaya Dobbins MD LAB BLOOD ORDERABLES Final Resu lt [facility] [address] [place] [address], * (ABNORMAL) Complete blood count (09/14/2024 4:53 AM EDT) WBC 7.1 4.8 - 10.8 K/mcL LAB HEMETOLOGY METHOD 09/14/2024 11:19 AM [facility] RBC 3.20(L) 3.80 - 4.80 M/mcL LAB HEMETOLOGY METHOD 09/14/2024 11:19 AM [facility] Hemoglobin 10.0(L) 11.5 - 16.0 g/dL LAB HEMETOLOGY METHOD 09/14/2024 11:19 AM [facility] Hematocrit 32.0(L) 35.0 - 47.0 % LAB HEMETOLOGY METHOD 09/14/2024 11:19 AM [facility] MCV 100.6(H) 79.0 - 98.0 FL LAB HEMETOLOGY METHOD 09/14/2024 11:19 AM [facility] MCH 31.4 27.0 - 32.0 pcg LAB HEMETOLOGY METHOD 09/14/2024 11:19 AM [facility] MCHC 31.3(L) 32.0 - 37.0 g/dL LAB HEMETOLOGY METHOD 09/14/2024 11:19 AM EDT [facility] RDW 14.9 11.0 - 15.0 % LAB HEMETOLOGY METHOD 09/14/2024 11:19 AM EDT [facility] Platelets 321 130 - 400 K/mcL LAB HEMETOLOGY METHOD 09/14/2024 11:19 AM EDT [facility] MPV 10.2 7.0 - 11.0 FL LAB HEMETOLOGY METHOD 09/14/2024 11:19 AM EDT [facility] NRBC 0.0 <1.0 % LAB HEMETOLOGY METHOD 09/14/2024 11:19 AM EDT [facility] NRBC Absolute 0.00 <0.10 K/mcL LAB HEMETOLOGY METHOD 09/14/2024 11:19 AM EDT [facility] Blood Venous blood specimen / Unknown Venipuncture / Unknown 09/14/2024 4:53 AM EDT 09/14/2024 10:54 AM EDT Yaya Dobbins MD LAB BLOOD ORDERABLES Final Resu lt [facility] [address] [place] [address], documented in this encounter Visit Diagnoses Diagnosis Hyperlipidemia, unspecified documented in this encounter Care Teams Content Publisher Relationship Specialty Start Date End Date Yaya Dobbins MD [address] [place] [address] PCP - General Internal Medicine 09/05/24 documented as of this encounter
--- OUTSIDE RECORDS SUMMARY | 2024-10-29 15:10 | XMS_ITS | Encounter Summary ---
Author Organization [facility] Address [address] [place] [address] Care Team Providers Care Feather Maker Name Role Phone Yaya Dobbins MD Primary Care Provider [phone] Encounter Details Date Type Department Care Team (Late st Contact Info) Description 09/19/2024 Lab Requisition [facility] - Main Lab [address] [facility] [place] [address] Yaya Dobbins MD [address] [place] [address] Hyperlipidemia, unspecified Social History Tobacco [...] LAB CHEMISTRY METHOD 09/21/2024 11:[address] [facility] Potassium 4.0 3.5 - 5.5 mmol/L LAB CHEMISTRY METHOD 09/21/2024 11:[address] [facility] Chloride 114(H) 96 - 110 mmol/L LAB CHEMISTRY METHOD 09/21/2024 11:20 AM [facility] CO2 22 21 - 32 mmol/L LAB CHEMISTRY METHOD 09/21/2024 11:20 AM [facility] Anion Gap 8 3 - 11 LAB CHEMISTRY METHOD 09/21/2024 11:20 AM [facility] Glucose 82 70 - 100 mg/dL LAB CHEMISTRY METHOD 09/21/2024 11:20 AM [facility] BUN 13 5 - 25 mg/dL LAB CHEMISTRY METHOD 09/21/2024 11:20 AM [facility] Creatinine 0.61 0.50 - 1.10 mg/dL LAB CHEMISTRY METHOD 09/21/2024 11:20 AM [facility] eGFR 92 >=60 mL/min/1. 73m2 LAB CHEMISTRY METHOD 09/21/2024 11:20 AM [facility] Comment:Calculation based on the Chronic Kidney Disease Epidemiology Collaboration (CKD-EPI) equation refit without adjustment for race. BUN/Creatinine Ratio 21.3 LAB CHEMISTRY METHOD 09/21/2024 11:20 AM [facility] Calcium 9.0 8.5 - 10.5 mg/dL LAB CHEMISTRY METHOD 09/21/2024 11:20 AM [facility] AST (SGOT) 40 10 - 42 unit/L LAB CHEMISTRY METHOD 09/21/2024 11:20 AM [facility] ALT (SGPT) 31 10 - 60 unit/L LAB CHEMISTRY METHOD 09/21/2024 11:20 AM [facility] Alkaline Phosphatase 140(H) 42 - 121 unit/L LAB CHEMISTRY METHOD 09/21/2024 11:20 AM [facility] Total Protein 5.3(L) 6.0 - 8.0 g/dL LAB CHEMISTRY METHOD 09/21/2024 11:20 AM [facility] Albumin 3.1(L) 3.2 - 5.0 g/dL LAB CHEMISTRY METHOD 09/21/2024 11:20 AM [facility] Total Bilirubin 0.5 0.0 - 1.4 mg/dL LAB CHEMISTRY METHOD 09/21/2024 11:20 AM [facility] Blood Venous blood specimen / Unknown Venipuncture / Unknown 09/21/2024 4:46 AM EDT 09/21/2024 11:05 AM EDT us Yaya Dobbins MD LAB BLOOD ORDERABLES Final Resu lt [facility] [address] [place] [address], * (ABNORMAL) Complete blood count (09/21/2024 4:46 AM EDT) WBC 5.6 4.8 - 10.8 K/mcL LAB HEMETOLOGY METHOD 09/21/2024 10:22 AM [facility] RBC 3.10(L) 3.80 - 4.80 M/mcL LAB HEMETOLOGY METHOD 09/21/2024 10:22 AM [facility] Hemoglobin 9.8(L) 11.5 - 16.0 g/dL LAB HEMETOLOGY METHOD 09/21/2024 10:22 AM [facility] Hematocrit 31.4(L) 35.0 - 47.0 % LAB HEMETOLOGY METHOD 09/21/2024 10:22 AM [facility] MCV 101.0(H) 79.0 - 98.0 FL LAB HEMETOLOGY METHOD 09/21/2024 10:22 AM [facility] MCH 31.5 27.0 - 32.0 pcg LAB HEMETOLOGY METHOD 09/21/2024 10:22 AM [facility] MCHC 31.2(L) 32.0 - 37.0 g/dL LAB HEMETOLOGY METHOD 09/21/2024 10:[address] [facility] RDW 15.7(H) 11.0 - 15.0 % LAB HEMETOLOGY METHOD 09/21/2024 10:[address] [facility] Platelets 273 130 - 400 K/mcL LAB HEMETOLOGY METHOD 09/21/2024 10:[address] [facility] MPV 10.6 7.0 - 11.0 FL LAB HEMETOLOGY METHOD 09/21/2024 10:[address] [facility] NRBC 0.0 <1.0 % LAB HEMETOLOGY METHOD 09/21/2024 10:[address] [facility] NRBC Absolute 0.00 <0.10 K/mcL LAB HEMETOLOGY METHOD 09/21/2024 10:[address] [facility] Blood Venous blood specimen / Unknown Venipuncture / Unknown 09/21/2024 4:46 AM EDT 09/21/2024 10:02 AM EDT Yaya Dobbins MD LAB BLOOD ORDERABLES Final Resu lt [facility] [address] [place] [address], documented in this encounter Visit Diagnoses Diagnosis Hyperlipidemia, unspecified documented in this encounter Care Teams Feather Maker Relationship Specialty Start Date End Date Yaya Dobbins MD [address] [place] [address] PCP - General Internal Medicine 09/05/24 documented as of this encounter
--- OUTSIDE RECORDS SUMMARY | 2024-10-29 15:10 | XMS_ITS | Clinical Summary ---
Author Organization [address] Address [address] [place] [address] Phone Care Team Providers Care Director Of Undergraduate Admissions Name Role Phone Yaya Dobbins MD Primary Care Provider [phone] Encounters Date Type Department Care Team Description 09/19/2024 Lab Requisition [facility] Lab [address] [place] [address] Yaya Dobbins MD Hyperlipidemia, unspecified 09/16/2024 Lab Requisition [facility] Lab [address] [place] [address] Yaya Dobbins MD Hyperlipidemia, unspecified 09/11/2024 Lab Requisition [facility] Lab [address] [place] [address] Yaya Dobbins MD Hyperlipidemia, unspecified 09/09/2024 Lab Requisition [facility] Lab [address] [place] [address] Yaya Dobbins MD Hyperlipidemia, unspecified 09/07/2024 Lab Requisition [facility] Lab [address] [place] [address] Yaya Dobbins MD Hypothyroidism, unspecified; Hyperlipidemia, unspecified 09/05/2024 Lab Requisition [facility] Lab [address] [place] [address] Yaya Dobbins MD Hyperlipidemia, unspecified; Hypothyroidism, unspecified from Last 3 Months Social History Tobacco Use Types Packs/Day Years Used Date Smoking Tobacco: Never Assessed Comments Unknown Sex and Gender Information Value Date Recorded Sex Assigned at Not on file Legal Sex Female 12:48 PM EST Gender Identity Not on file Sexual Orientation Not on file Plan of Treatment Health Maintenance Due Date Last Done Comments Diabetes: Annual Foot Exam 09/25/1955 Diabetes: Annual Retina Eye Exam 09/25/1955 DTaP,Tdap,and Td Vaccines (1 - Tdap) 1964 Pneumococcal Vaccine: 50+ Years (1 of 2 - PCV) 1964 Zoster Vaccines (1 of 2) 09/25/1995 RSV Immunization Adult Patients (1 - 1-dose 75+ series) 2020 COVID-19 Vaccine (1 - season) 2023 Depression Screening 03/04/2024 Cholesterol Screening (Lipid Panel) 09/05/2024 Falls Risk Assessment 09/05/2024 Hepatitis C Screening 09/05/2024 Osteoporosis Screening (Bone Density Screening) 09/05/2024 Social Influencers of Health Screening 09/05/2024 Diabetes: Annual Urine Albumin-Creatinine Ratio (uACR) 2024 Diabetes: Blood Sugar Control Test (HGBA1C) 2024 Influenza Vaccine (#1) 2024 Diabetes: Annual GFR (Glomerular Filtration Rate) 09/21/2025 09/21/2024, 09/17/2024, 09/14/2024, Additional history exists HIB Vaccines Aged Out No longer eligi ble based on patient's age to complete this topic HPV Vaccines Aged Out No longer eligi ble based on patient's age to complete this topic Hepatitis A Vaccines Aged Out No long er eligible based on patient's age to complete this topic Hepatitis B Vaccines Aged Out No long er eligible based on patient's age to complete this topic IPV Vaccines Aged Out No longer eligi ble based on patient's age to complete this topic MMR Vaccines Aged Out No longer eligi ble based on patient's age to complete this topic Meningococcal ACWY Vaccine Aged Out N o longer eligible based on patient's age to complete this topic Meningococcal B Vaccine Aged Out No l onger eligible based on patient's age to complete this topic RSV Immunization Patients Under 20 months Aged Out No longer eligible based on patient's age to complete this topic Varicella Vaccines Aged Out No longer eligible based on patient's age to complete this topic Procedures Procedure Name Priority Date/Time Associated Diagnosis Comments COMPREHENSIVE METABOLIC PANEL Routine 09/21/2024 4:46 AM EDT Hyperlipidemia, unspecified COMPLETE BLOOD COUNT Routine 09/21/2024 4:46 AM EDT Hyperlipidemia, unspecified BASIC METABOLIC PANEL Routine 09/17/2024 4:51 AM EDT Hyperlipidemia, unspecified COMPLETE BLOOD COUNT Routine 09/17/2024 4:51 AM EDT Hyperlipidemia, unspecified COMPREHENSIVE METABOLIC PANEL Routine 09/14/2024 4:53 AM EDT Hyperlipidemia, unspecified COMPLETE BLOOD COUNT Routine 09/14/2024 4:53 AM EDT Hyperlipidemia, unspecified BASIC METABOLIC PANEL Routine 09/10/2024 4:58 AM EDT Hyperlipidemia, unspecified COMPLETE BLOOD COUNT Routine 09/10/2024 4:58 AM EDT Hyperlipidemia, unspecified COMPREHENSIVE METABOLIC PANEL Routine 09/07/2024 5:09 AM EDT Hypothyroidism, unspecified Hyperlipidemia, unspecified COMPLETE BLOOD COUNT Routine 09/07/2024 5:09 AM EDT Hypothyroidism, unspecified Hyperlipidemia, unspecified COMPREHENSIVE METABOLIC PANEL Routine 09/05/2024 6:49 AM EDT Hyperlipidemia, unspecified Hypothyroidism, unspecified COMPLETE BLOOD COUNT Routine 09/05/2024 6:49 AM EDT Hyperlipidemia, unspecified Hypothyroidism, unspecified from Last 3 Months Results * (ABNORMAL) Complete blood count (09/21/2024 4:46 AM EDT) Only the most recent of6 resultswithin the time period is included. [facility] WBC 5.6 4.8 - 10.8 K/[facility] LAB HEMETOLOGY METHOD 09/21/2024 10:22 AM EDT [facility] RBC 3.10(L) 3.80 - 4.80 M/mcL LAB HEMETOLOGY METHOD 09/21/2024 10:22 AM [facility] Hemoglobin 9.8(L) 11.5 - 16.0 g/dL LAB HEMETOLOGY METHOD 09/21/2024 10:22 AM [facility] Hematocrit 31.4(L) 35.0 - 47.0 % LAB HEMETOLOGY METHOD 09/21/2024 10:22 AM [facility] MCV 101.0(H) 79.0 - 98.0 FL LAB HEMETOLOGY METHOD 09/21/2024 10:22 AM [facility] MCH 31.5 27.0 - 32.0 pcg LAB HEMETOLOGY METHOD 09/21/2024 10:22 AM [facility] MCHC 31.2(L) 32.0 - 37.0 g/dL LAB HEMETOLOGY METHOD 09/21/2024 10:22 AM [facility] RDW 15.7(H) 11.0 - 15.0 % LAB HEMETOLOGY METHOD 09/21/2024 10:22 AM [facility] Platelets 273 130 - 400 K/mcL LAB HEMETOLOGY METHOD 09/21/2024 10:22 AM [facility] MPV 10.6 7.0 - 11.0 FL LAB HEMETOLOGY METHOD 09/21/2024 10:22 AM [facility] NRBC 0.0 <1.0 % LAB HEMETOLOGY METHOD 09/21/2024 10:22 AM [facility] NRBC Absolute 0.00 <0.10 K/mcL LAB HEMETOLOGY METHOD 09/21/2024 10:22 AM [facility] Blood Venous blood specimen / Unknown Venipuncture / Unknown 09/21/2024 4:46 AM EDT 09/21/2024 10:02 AM EDT us Yaya Dobbins MD LAB BLOOD ORDERABLES Final Resu lt [facility] [address] [place] [address], [place] [phone] * (ABNORMAL) Comprehensive metabolic panel (09/21/2024 4:46 AM EDT) Only the most recent of4 resultswithin the time period is included. Sodium 144 133 - 145 mmol/L LAB CHEMISTRY METHOD 09/21/2024 11:20 AM [facility] Potassium 4.0 3.5 - 5.5 mmol/L LAB CHEMISTRY METHOD 09/21/2024 11:20 AM [facility] Chloride 114(H) 96 - 110 mmol/L LAB CHEMISTRY METHOD 09/21/2024 11:20 AM [facility] CO2 22 21 - 32 mmol/L LAB CHEMISTRY METHOD 09/21/2024 11:20 AM [facility] Anion Gap 8 3 - 11 LAB CHEMISTRY METHOD 09/21/2024 11:20 AM [facility] Glucose 82 70 - 100 mg/dL LAB CHEMISTRY METHOD 09/21/2024 11:20 AM [facility] BUN 13 5 - 25 mg/dL LAB CHEMISTRY METHOD 09/21/2024 11:20 AM [facility] Creatinine 0.61 0.50 - 1.10 mg/dL LAB CHEMISTRY METHOD 09/21/2024 11:20 AM [facility] eGFR 92 >=60 mL/min/1. 73m2 LAB CHEMISTRY METHOD 09/21/2024 11:20 AM [facility] Comment:Calculation based on the Chronic Kidney Disease Epidemiology Collaboration (CKD-EPI) equation refit without adjustment for race. BUN/Creatinine Ratio 21.3 LAB CHEMISTRY METHOD 09/21/2024 11:20 AM [facility] Calcium 9.0 8.5 - 10.5 mg/dL LAB CHEMISTRY METHOD 09/21/2024 11:20 AM [facility] AST (SGOT) 40 10 - 42 unit/L LAB CHEMISTRY METHOD 09/21/2024 11:20 AM [facility] ALT (SGPT) 31 10 - 60 unit/L LAB CHEMISTRY METHOD 09/21/2024 11:20 AM [facility] Alkaline Phosphatase 140(H) 42 - 121 unit/L LAB CHEMISTRY METHOD 09/21/2024 11:20 AM [facility] Total Protein 5.3(L) 6.0 - 8.0 g/dL LAB CHEMISTRY METHOD 09/21/2024 11:20 AM [facility] Albumin 3.1(L) 3.2 - 5.0 g/dL LAB CHEMISTRY METHOD 09/21/2024 11:20 AM [facility] Total Bilirubin 0.5 0.0 - 1.4 mg/dL LAB CHEMISTRY METHOD 09/21/2024 11:20 AM [facility] Blood Venous blood specimen / Unknown Venipuncture / Unknown 09/21/2024 4:46 AM EDT 09/21/2024 11:05 AM EDT us Yaya Dobbins MD LAB BLOOD ORDERABLES Final Resu lt [facility] [address] [place] [address], * (ABNORMAL) Basic metabolic panel (09/17/2024 4:51 AM EDT) Only the most recent of2 resultswithin the time period is included. Sodium 145 133 - 145 mmol/L LAB CHEMISTRY METHOD 09/17/2024 9:16 AM [facility] Potassium 4.1 3.5 - 5.5 mmol/L LAB CHEMISTRY METHOD 09/17/2024 9:16 AM [facility] Chloride 114(H) 96 - 110 mmol/L LAB CHEMISTRY METHOD 09/17/2024 9:16 AM [facility] CO2 26 21 - 32 mmol/L LAB CHEMISTRY METHOD 09/17/2024 9:16 AM [facility] Anion Gap 5 3 - 11 LAB CHEMISTRY METHOD 09/17/2024 9:16 AM [facility] Glucose 77 70 - 100 mg/dL LAB CHEMISTRY METHOD 09/17/2024 9:16 AM [facility] BUN 11 5 - 25 mg/dL LAB CHEMISTRY METHOD 09/17/2024 9:16 AM [facility] Creatinine 0.65 0.50 - 1.10 mg/dL LAB CHEMISTRY METHOD 09/17/2024 9:16 AM [facility] eGFR 90 >=60 mL/min/1. 73m2 LAB CHEMISTRY METHOD 09/17/2024 9:16 AM [facility] Comment:Calculation based on the Chronic Kidney Disease Epidemiology Collaboration (CKD-EPI) equation refit without adjustment for race. BUN/Creatinine Ratio 16.9 LAB CHEMISTRY METHOD 09/17/2024 9:16 AM [facility] Calcium 9.2 8.5 - 10.5 mg/dL LAB CHEMISTRY METHOD 09/17/2024 9:16 AM [facility] Blood Venous blood specimen / Unknown Venipuncture / Unknown 09/17/2024 4:51 AM EDT 09/17/2024 7:42 AM EDT us Yaya Dobbins MD LAB BLOOD ORDERABLES Final Resu lt [facility] [address] [place] [address], [place] [phone] from Last 3 Months Insurance [facility] Care Teams Director Of Undergraduate Admissions Relationship Specialty Start Date End Date Yaya Dobbins MD [address] [place] [phone] PCP - General Internal Medicine 09/05/24
--- OUTSIDE RECORDS SUMMARY | 2024-10-29 15:10 | XMS_ITS | Encounter Summary ---
Author Organization [facility] Address [address] [place] [address] Care Team Providers Care Ecommerce Marketing Specialist Name Role Phone Yaya Dobbins MD Primary Care Provider [phone] Encounter Details Date Type Department Care Team (Late st Contact Info) Description 09/16/2024 Lab Requisition [facility] - Main Lab [address] [facility] [place] [address] Yaya Dobbins MD [address] [place] [address] Hyperlipidemia, unspecified Social History [...] Associated Diagnosis Comments COMPLETE BLOOD COUNT Routine 09/17/2024 4:51 AM EDT Hyperlipidemia, unspecified BASIC METABOLIC PANEL Routine 09/17/2024 4:51 AM EDT Hyperlipidemia, unspecified documented in this encounter Results * (ABNORMAL) Basic metabolic panel (09/17/2024 4:51 AM EDT) Sodium 145 133 - 145 mmol/L LAB CHEMISTRY METHOD 09/17/2024 9:16 AM EDT [facility] Potassium 4.1 3.5 - 5.5 mmol/L LAB CHEMISTRY METHOD 09/17/2024 9:16 AM EDT [facility] Chloride 114(H) 96 - 110 mmol/L LAB CHEMISTRY METHOD 09/17/2024 9:16 AM [facility] CO2 26 21 - 32 mmol/L LAB CHEMISTRY METHOD 09/17/2024 9:16 AM [facility] Anion Gap 5 3 - 11 LAB CHEMISTRY METHOD 09/17/2024 9:16 AM [facility] Glucose 77 70 - 100 mg/dL LAB CHEMISTRY METHOD 09/17/2024 9:16 AM [facility] BUN 11 5 - 25 mg/dL LAB CHEMISTRY METHOD 09/17/2024 9:16 AM [facility] Creatinine 0.65 0.50 - 1.10 mg/dL LAB CHEMISTRY METHOD 09/17/2024 9:16 AM [facility] eGFR 90 >=60 mL/min/1. 73m2 LAB CHEMISTRY METHOD 09/17/2024 9:16 AM [facility] Comment:Calculation based on the Chronic Kidney Disease Epidemiology Collaboration (CKD-EPI) equation refit without adjustment for race. BUN/Creatinine Ratio 16.9 LAB CHEMISTRY METHOD 09/17/2024 9:16 AM [facility] Calcium 9.2 8.5 - 10.5 mg/dL LAB CHEMISTRY METHOD 09/17/2024 9:16 AM [facility] Blood Venous blood specimen / Unknown Venipuncture / Unknown 09/17/2024 4:51 AM EDT 09/17/2024 7:42 AM EDT us Yaya Dobbins MD LAB BLOOD ORDERABLES Final Resu lt [facility] [address] [place] [address], * (ABNORMAL) Complete blood count (09/17/2024 4:51 AM EDT) WBC 5.9 4.8 - 10.8 K/[facility] LAB HEMETOLOGY METHOD 09/17/2024 8:39 AM [facility] RBC 3.30(L) 3.80 - 4.80 M/mcL LAB HEMETOLOGY METHOD 09/17/2024 8:39 AM [facility] Hemoglobin 10.1(L) 11.5 - 16.0 g/dL LAB HEMETOLOGY METHOD 09/17/2024 8:39 AM [facility] Hematocrit 32.4(L) 35.0 - 47.0 % LAB HEMETOLOGY METHOD 09/17/2024 8:39 AM [facility] MCV 99.7(H) 79.0 - 98.0 FL LAB HEMETOLOGY METHOD 09/17/2024 8:39 AM [facility] MCH 31.1 27.0 - 32.0 pcg LAB HEMETOLOGY METHOD 09/17/2024 8:39 AM [facility] MCHC 31.2(L) 32.0 - 37.0 g/dL LAB HEMETOLOGY METHOD 09/17/2024 8:39 AM [facility] RDW 15.2(H) 11.0 - 15.0 % LAB HEMETOLOGY METHOD 09/17/2024 8:39 AM [facility] Platelets 324 130 - 400 K/mcL LAB HEMETOLOGY METHOD 09/17/2024 8:39 AM [facility] MPV 10.1 7.0 - 11.0 FL LAB HEMETOLOGY METHOD 09/17/2024 8:39 AM [facility] NRBC 0.0 <1.0 % LAB HEMETOLOGY METHOD 09/17/2024 8:39 AM [facility] NRBC Absolute 0.00 <0.10 K/mcL LAB HEMETOLOGY METHOD 09/17/2024 8:39 AM [facility] Blood Venous blood specimen / Unknown Venipuncture / Unknown 09/17/2024 4:51 AM EDT 09/17/2024 7:42 AM EDT Yaya Dobbins MD LAB BLOOD ORDERABLES Final Resu lt [facility] [address] [place] [address], documented in this encounter Visit Diagnoses Diagnosis Hyperlipidemia, unspecified documented in this encounter Care Teams Ecommerce Marketing Specialist Relationship Specialty Start Date End Date Yaya Dobbins MD [address] [place] [address] PCP - General Internal Medicine 09/05/24 documented as of this encounter
--- OUTSIDE RECORDS SUMMARY | 2024-10-29 15:11 | XMS_ITS | Encounter Summary ---
Author Organization [facility] Address [address] [place] [address] Care Team Providers Care Stock Replenisher Name Role Phone Yaya Dobbins MD Primary Care Provider [phone] Encounter Details Date Type Department Care Team (Late st Contact Info) Description 09/05/2024 Lab Requisition [facility] - Main Lab [address] [facility] [place] [address] Yaya Dobbins MD [address] [place] [address] Hyperlipidemia, unspecified; Hypothyroidism, unspecified Social History Tobacco Use Types Packs/Day [...] Associated Diagnosis Comments COMPLETE BLOOD COUNT Routine 09/05/2024 6:49 AM EDT Hyperlipidemia, unspecified Hypothyroidism, unspecified COMPREHENSIVE METABOLIC PANEL Routine 09/05/2024 6:49 AM EDT Hyperlipidemia, unspecified Hypothyroidism, unspecified documented in this encounter Results * (ABNORMAL) Comprehensive metabolic panel (09/05/2024 6:49 AM EDT) Sodium 142 133 - 145 mmol/L LAB CHEMISTRY METHOD 09/05/2024 10:48 AM EDT [facility] Potassium 4.1 3.5 - 5.5 mmol/L LAB CHEMISTRY METHOD 09/05/2024 10:48 AM EDT [facility] Chloride 109 96 - 110 mmol/L LAB CHEMISTRY METHOD 09/05/2024 10:48 AM [facility] CO2 28 21 - 32 mmol/L LAB CHEMISTRY METHOD 09/05/2024 10:48 AM [facility] Anion Gap 5 3 - 11 LAB CHEMISTRY METHOD 09/05/2024 10:48 AM [facility] Glucose 85 70 - 100 mg/dL LAB CHEMISTRY METHOD 09/05/2024 10:48 AM [facility] BUN 11 5 - 25 mg/dL LAB CHEMISTRY METHOD 09/05/2024 10:48 AM [facility] Creatinine 0.60 0.50 - 1.10 mg/dL LAB CHEMISTRY METHOD 09/05/2024 10:48 AM [facility] eGFR 92 >=60 mL/min/1. 73m2 LAB CHEMISTRY METHOD 09/05/2024 10:48 AM [facility] Comment:Calculation based on the Chronic Kidney Disease Epidemiology Collaboration (CKD-EPI) equation refit without adjustment for race. BUN/Creatinine Ratio 18.3 LAB CHEMISTRY METHOD 09/05/2024 10:48 AM [facility] Calcium 8.8 8.5 - 10.5 mg/dL LAB CHEMISTRY METHOD 09/05/2024 10:48 AM [facility] AST (SGOT) 55(H) 10 - 42 unit/L LAB CHEMISTRY METHOD 09/05/2024 10:48 AM [facility] ALT (SGPT) 30 10 - 60 unit/L LAB CHEMISTRY METHOD 09/05/2024 10:48 AM [facility] Alkaline Phosphatase 84 42 - 121 unit/L LAB CHEMISTRY METHOD 09/05/2024 10:48 AM [facility] Total Protein 5.3(L) 6.0 - 8.0 g/dL LAB CHEMISTRY METHOD 09/05/2024 10:48 AM [facility] Albumin 2.8(L) 3.2 - 5.0 g/dL LAB CHEMISTRY METHOD 09/05/2024 10:48 AM EDT [facility] Total Bilirubin 0.9 0.0 - 1.4 mg/dL LAB CHEMISTRY METHOD 09/05/2024 10:48 AM [facility] Blood Venous blood specimen / Unknown Venipuncture / Unknown 09/05/2024 6:49 AM EDT 09/05/2024 9:23 AM EDT us Yaya Dobbins MD LAB BLOOD ORDERABLES Final Resu lt [facility] [address] [place] [address], [place] [phone] * (ABNORMAL) Complete blood count (09/05/2024 6:49 AM EDT) WBC 8.4 4.8 - 10.8 K/mcL LAB HEMETOLOGY METHOD 09/05/2024 10:27 AM [facility] RBC 3.10(L) 3.80 - 4.80 M/mcL LAB HEMETOLOGY METHOD 09/05/2024 10:27 AM [facility] Hemoglobin 9.4(L) 11.5 - 16.0 g/dL LAB HEMETOLOGY METHOD 09/05/2024 10:27 AM [facility] Hematocrit 28.8(L) 35.0 - 47.0 % LAB HEMETOLOGY METHOD 09/05/2024 10:27 AM [facility] MCV 92.9 79.0 - 98.0 FL LAB HEMETOLOGY METHOD 09/05/2024 10:27 AM [facility] MCH 30.3 27.0 - 32.0 pcg LAB HEMETOLOGY METHOD 09/05/2024 10:27 AM [facility] MCHC 32.6 32.0 - 37.0 g/dL LAB HEMETOLOGY METHOD 09/05/2024 10:27 AM EDT [facility] RDW 13.0 11.0 - 15.0 % LAB HEMETOLOGY METHOD 09/05/2024 10:27 AM EDT [facility] Platelets 194 130 - 400 K/mcL LAB HEMETOLOGY METHOD 09/05/2024 10:27 AM EDT [facility] MPV 11.2(H) 7.0 - 11.0 FL LAB HEMETOLOGY METHOD 09/05/2024 10:27 AM EDT [facility] NRBC 0.0 <1.0 % LAB HEMETOLOGY METHOD 09/05/2024 10:27 AM EDT [facility] NRBC Absolute 0.00 <0.10 K/mcL LAB HEMETOLOGY METHOD 09/05/2024 10:27 AM EDT [facility] Blood Venous blood specimen / Unknown Venipuncture / Unknown 09/05/2024 6:49 AM EDT 09/05/2024 9:23 AM EDT us Yaya Dobbins MD LAB BLOOD ORDERABLES Final Resu lt [facility] [address] [place] [address], documented in this encounter Visit Diagnoses Diagnosis Hyperlipidemia, unspecified Hypothyroidism, unspecified documented in this encounter Care Teams Stock Replenisher Relationship Specialty Start Date End Date Yaya Dobbins MD [address] [place] [address] PCP - General Internal Medicine 09/05/24 documented as of this encounter
--- OUTSIDE RECORDS SUMMARY | 2024-10-29 15:11 | XMS_ITS | Clinical Summary ---
Author Organization [facility] Address [address] [place], [place] [id number] Phone Care Team Providers Care Computer Laboratory Technician Name Role Phone Rodolfo Stein MD Primary Care Provider [phone] Allergies Active Allergy Reactions Criticality Noted Date [...] topic Medical Devices Not on file Insurance [facility] [address] [place], [place] [address] [place], [place] [address] [place], [place] [address]O [facility] Care Teams Computer Laboratory Technician Relationship Specialty Start Date End Date Rodolfo Stein MD [address] [place] [phone] PCP - General Internal Medicine 01/22/14 Additional Source Comments The information contained in this document represents components of the legal health record. It is not the complete legal health record.[facility]
[2024-10-29 15:20] VITALS: BP 142/58; PULSE 77; TEMP 36.6; O2SAT 97; BMI 34.2
--- NOTE | 2024-10-29 15:20 | AM.OFFWIN_ITS ---
Intake Vital Signs 10/29/24 15:20 Height 5 ft 2 in Weight 187 lb BMI 34.2 BP 142/58 H Blood Pressure Location Rt brachial Position Sitting Pulse 77 Pulse Source Pulse Oximeter Temp 97.9 F Temp Source Oral Pulse Oximetry (%) 97 Oxygen Delivery Method Room Air Intake Visit Reasons: EP water retention rt leg, bright red hip pain Intake Note: pt presents with concern for bilateral LE edema, redness on LT foot s/p LTHR 08/31/24. wearing compression stockings 12hrs daily. states ultrasound done LT groin at [facility] 3 wks ago- negative DVT. expresses concern for DVT LLE Patient Tobacco Use Status: Former Tobacco user Allergies oxycodone (OXYCODONE) Allergy (Severe, Verified 10/29/24 15:27) N/V aspirin (ASPIRIN) Allergy (Intermediate, Verified 10/29/24 15:27) GI UPSET/BLEEDING latex (LATEX) Allergy (Intermediate, Verified 10/29/24 15:27) RASH NSAIDS (Non-Steroidal Anti-Inflamma (NSAIDS (NON-STEROIDAL ANTI-INFLAMMA) Allergy (Intermediate, Verified 10/29/24 15:27) GI UPSET/BLEEDING naproxen (From Aleve) Allergy (Verified 10/29/24 15:27) Diarrhea Do you need a note to return to daycare/school/sports/work: No HPI HPI Comments History of Present Illness Details HPI -79-year-old female presents for evaluat ion of bilateral leg pain and swelling. -Patient had a recent left hip replaceme nt on August 31, [address] [facility] [address] James Benson, performed at [facility]. -She reports that she was on Eliquis fro m that date until September 30, post op. -She reports that she has had steady swe lling to the left lower extremity since the surgery. But now both are swollen. -She reports that the swelling has been getting progressively worse. -The patient has no history of DVT or PE -Denies any recent falls or trauma -She is primarily ambulatory with a walk er but is able to shuffle short distances without the walker -Has been wearing compression stockings and removed them for this exam. -Went to the [facility] ED 10/02, Left LE venous US negative for DVT - Reports bilateral leg redness resembli ng sunburn, with sensitivity to touch in the left leg. - Postoperative groin pain persists, exa cerbated by movement, particularly when removing shoes. Also complaining of; - Coccyx pain is described as severe tanvi oting pain, especially when sitting or standing, possibly due to nerve involvement. - Coccyx area shows signs of redness, po ssibly indicating a fungal infection. - Currently in respite care due to mobil ity issues and attends physical therapy twice a week. Physical Exam General: Cooperative, healthy appearing, comfortable, no acute distress and well developed Orientation: Patient oriented x3 Limitations: Using a walker Head: Normal to inspection Ears: Hearing grossly normal bilaterally Nose: Normal External nose present Face and sinus: Normal facial exam Eyes: Appearance normal, both eyes and all related structures Neck: Normal visual inspection and Yes full ROM Respiratory: Normal respiratory effort and able to speak in complete sentences. Skin: coccyx with 2cm x 1cm area of flat erythema, no warmth, no signs of infection noted Neuro: Patient oriented x3 Extremities: left LE: erythema without warmth, 1+ pitting edema, TTP and full ROM, + Homans right LE: no skin changes, no warmth, 1+ pitting edema, no TTP and full ROM, - Homans [facility] Medical History (Updated 10/29/24 @ 16:03 by Leila Harris PA-C) Medication management Hypothyroidism Class 1 obesity with body mass index (BMI) of 32.0 to 32.9 in adult History of mammogram (~07/15/24) Cough Establishing care with new doctor, encounter for Anxiety GI bleed Surgical History (Updated 10/02/24 @ 13:40 by Trini Araujo PA-C) S/P total left hip arthroplasty History of colonoscopy (~07/08/19) S/P tooth extraction Family History Father S/P CABG x 4 Stroke Heart attack Heart disease Mother Cancer Paternal Uncle Heart disease Diabetes Paternal Uncle Heart disease Daughter Multiple sclerosis Paternal Grandmother Diabetes Maternal Grandfather Stomach cancer Social History Housing: House Alcohol intake: current Alcohol intake frequency: holidays/special occasions only Patient Tobacco Use Status: Former Tobacco user service: No Current occupational status: retired Cognitive needs: Yes (walker) Hearing needs: No Vision needs: No Review of Systems Const All systems reviewed & are unremarkable except as noted in HPI and below Physical Exam Vital Signs: Last Vital Signs Temp 97.9 F 10/29/24 15:20 Pulse 77 10/29/24 15:20 BP 142/58 H 10/29/24 15:20 Pulse Ox 97 10/29/24 15:20 Oxygen Delivery Method Room Air 10/29/24 15:20 BMI result Body Mass Index 34.2 Assessment & Plan Assessment & Plan (1) Pain of left lower extremity: Code(s): M79.605 - Pain in left leg Plan: Patient was informed and verbally consented to the use of an ambient scribe for clinic note documentation during this visit. Bilateral Lower Extremity Edema - Will repeat ultrasound today to rule out deep vein thrombosis due to persistent edema, erythema and + Prosper's. - US was negative for a clot - Continue wearing compression stockings to manage edema. - It does not appear there is a cellulitis today however I am concerned one might be developing and as we are heading into a holiday weekend. I will send a prescription for Keflex and I told the patient if the pain or the redness got worse over the weekend that she should start taking the antibiotics. Postoperative Pain In The Groin - Possibly 2/2 DVT, getting US to rule this out. - Monitor pain levels and continue physical therapy to aid recovery. Fungal Infection At The Coccyx - Prescribe antifungal cream to be applied twice daily for four weeks. - Suggest using ice packs instead of heat to reduce inflammation (2) Edema of left lower leg: Code(s): R60.0 - Localized edema Plan: as above (3) Candidal intertrigo: Code(s): B37.2 - Candidiasis of skin and nail Plan: as above Orders: Orders US venous duplex LE LT Today M79.605 - Pain in left leg, R60.0 - Localized edema Medications: New clotrimazole 1% 1 appl topical bid 45 grams 0RF 4 weeks cephalexin 500 mg PO Q6H 28 caps 0RF Coding Level of Care Code Est Pt Level 5 (38009) Diagnoses Pain of left lower extremity M79.605 Edema of left lower leg R60.0 Candidal intertrigo B37.2
== END 2024-10-29 16:33 | disposition home or self-care (01) ==
PROVIDERS: PCP Internal Medicine; Visit Provider Physician Assistant
DX: M79.605 Pain in left leg (principal); R60.0 Localized edema; B37.2 Candidiasis of skin and nail

== ENCOUNTER 2024-10-29 16:00 | Outpatient (REF) | payer MEDICARE, SELFPAY ==
--- NOTE | ~2024-10-29 | US_ITS ---
EXAMINATION: US TRIPLEX LOWER EXTREMITY, LEFT CLINICAL INFORMATION: Left leg pain COMPARISON: None available. TECHNIQUE: Color-flow triplex imaging with spectral analysis and compression Doppler were performed on the left lower extremity. FINDINGS: Respiratory variation, normal compression and augmented flow are noted throughout the left lower extremity. The visualized common femoral vein, superficial femoral vein, profunda femoral vein, popliteal vein and midcalf peroneal and posterior tibial venous segments show no evidence of deep venous thrombosis. There is no Eagle's cyst. US/US venous duplex LE LT IMPRESSION: No evidence of deep venous thrombosis involving the left lower extremity. Electronically signed by: Juan Luis Galan MD 10/29/2024 04:24 PM EDT
== END 2024-10-29 16:01 | disposition home or self-care (01) ==
LOC: HO.HMGCX 16:00
PROVIDERS: PCP Physician Assistant Medical; Visit Provider Physician Assistant
DX: M79.605 Pain in left leg (principal); R60.0 Localized edema; B37.2 Candidiasis of skin and nail
CPT/HCPCS: 93971; 99212

== ENCOUNTER → 2024-10-29 16:02 | Outpatient (BNV) | payer MEDICARE, SELFPAY | PROVIDERS: PCP Physician Assistant Medical; Visit Provider Radiology Diagnostic Radiology | DX: M79.605 Pain in left leg (principal) | CPT/HCPCS: 93971 ==

== ENCOUNTER 2024-11-04 13:55 | Outpatient (REF) | payer MEDICARE, SELFPAY ==
--- NOTE | ~2024-11-04 | XR_ITS ---
EXAMINATION: XR CHEST CLINICAL INFORMATION: R05.9 - Cough, unspecified COMPARISON: 08/03/2024. TECHNIQUE: 2 views of the chest were obtained. FINDINGS: The cardiac, hilar, and mediastinal contours are normal. Lungs are hyperaerated however clear bilaterally. There is no pneumothorax or pleural effusion. There is no focal osseous or soft tissue abnormality. There are degenerative changes throughout the spine. XR/XR chest 2V IMPRESSION: No active pulmonary disease. Electronically signed by: Juan Luis Galan MD 11/04/2024 03:49 PM EDT RP
[2024-11-04 16:25] LABS: Hematocrit 37.4 % (37.0-47.0); Hemoglobin 12.0 g/dl (12.0-16.0); Mean Corpuscular HGB Conc 32.1 g/dl (31.0-35.0); Mean Corpuscular Hemoglobin 30.8 pg (27.0-33.0); Mean Corpuscular Volume 95.9 fL (80.0-98.0); NRBC Abs Auto 0.000 X10*3/uL (0.0-0.012); NRBC Pct Auto 0.0 /100WBC (0.0-0.2); Platelet Count 205 X10*3/uL (160-400); Red Blood Count 3.90 X10*6/uL (4.20-5.50); White Blood Count 6.9 X10*3/uL (4.8-10.8)
[2024-11-04 16:35] LABS: B Type Natriuretic Peptide 58 pg/mL (<100)
[2024-11-04 16:56] LABS: Alanine Aminotransferase 30 U/L (0-31); Albumin Level 4.1 g/dL (3.5-5.0); Alkaline Phosphatase 104 U/L (39-117); Anion Gap 12 (12-20); Aspartate Amino Transferase 48 U/L (5-31); Blood Urea Nitrogen 15 mg/dL (9-16); Calcium 9.7 mg/dL (8.4-10.2); Carbon Dioxide 25 mmol/L (22-29); Chloride 110 mmol/L (96-108); Estimated Glomerular Filt Rate > 60; Potassium 4.1 mmol/L (3.3-5.1); Sodium 143 mmol/L (135-145); Total Protein 6.6 g/dL (6.5-8.0)
[2024-11-04 17:08] LABS: Erythrocyte Sedimentation Rate 9 MM/HR (0-20)
== END 2024-11-04 13:56 | disposition home or self-care (01) ==
LOC: HO.HMGCX 13:55
PROVIDERS: PCP Physician Assistant Medical; Visit Provider Physician Assistant Medical
DX: Z00.00 Encounter for general adult medical examination without abnormal findings (principal); R60.0 Localized edema; R05.9 Cough, unspecified; I10 Essential (primary) hypertension; L03.116 Cellulitis of left lower limb; M47.816 Spondylosis without myelopathy or radiculopathy, lumbar region; M25.559 Pain in unspecified hip; N20.0 Calculus of kidney; Z79.2 Long term (current) use of antibiotics; Z79.84 Long term (current) use of oral hypoglycemic drugs; Z79.890 Hormone replacement therapy; Z79.899 Other long term (current) drug therapy
CPT/HCPCS: 36415; 71046; 80053; 83880; 85027; 85652; 86140; 96127; 99212

== ENCOUNTER 2024-11-04 13:55 | Outpatient (AMB) | payer MEDICARE, SELFPAY ==
--- NOTE | 2024-11-04 13:58 | MHC.PC.OV ---
Vital Signs 11/04/24 13:59 Height 5 ft 2 in Weight 201 lb 2 oz BMI 36.8 BP 129/61 Blood Pressure Location Rt femoral Position Sitting Respiration 16 Pulse 77 Pulse Source Pulse Oximeter Temp 98.1 F Temp Source Temporal Artery Scan Pulse Oximetry (%) 96 Oxygen Delivery Method Room Air Intake Visit Reasons: follow up- Blood pressure Intake Note: Visit Reason: Blood pressure and chronic medical conditions follow up Intake Note: Patient is here for follow-up Printing Film Stripper Required: No Open Tenter Operator: Not Required per policy Accompanied by: Self / Same As Patient Allergies oxycodone (OXYCODONE) Allergy (Severe, Verified 11/04/24 15:27) N/V aspirin (ASPIRIN) Allergy (Intermediate, Verified 11/04/24 15:27) GI UPSET/BLEEDING latex (LATEX) Allergy (Intermediate, Verified 11/04/24 15:27) RASH NSAIDS (Non-Steroidal Anti-Inflamma (NSAIDS (NON-STEROIDAL ANTI-INFLAMMA) Allergy (Intermediate, Verified 11/04/24 15:27) GI UPSET/BLEEDING naproxen (From Aleve) Allergy (Verified 11/04/24 15:27) Diarrhea Medication List - Last Reconciled 11/04/24 by Trini Araujo PA-C ascorbic acid (vitamin C) ER 1,000 mg PO DAILY carvedilol 3.125 mg PO BID 90 days cephalexin 500 mg PO Q6H clotrimazole 1% 1 appl topical bid 4 weeks cyclobenzaprine 10 mg PO Q8H PRN doxycycline hyclate 100 mg PO BID 10 days furosemide (Lasix) 20 mg PO DAILY 5 days glipizide 5 mg PO BID 90 days latanoprost 0.005% 1 drp ophthalmic (eye) DAILY levothyroxine Patient takes 50 mcg Saturday through Saturday levothyroxine Patient takes 75 mcg Saturday and Sundays only lorazepam 0.5 mg PO DAILY PRN multivitamin 1 tab PO DAILY pyridoxine (vitamin B6) 100 mg PO DAILY 90 days simvastatin 20 mg PO BEDTIME Tobacco use date assessed: 10/02/24 Fall risk assessment: No Falls in past year Last assessed Fall Risk: 10/02/24 Dental Screening Dental Screen Date: 10/02/24 Did you have a dental visit in the last 12 months?: Yes Did you have a dental problem in the last 6 months where you did not have access to dental care?: No Was dental information given to patient?: Patient has dentist HPI follow up- Blood pressure HPI Details The patient is a 79-year-old female presenting with fluid retention and hypertension management. She reports significant fluid retention, particularly in her legs, causing severe pain. The swelling has been persistent, and she has undergone ultrasounds which were negative for blood clots. Despite cutting out salt from her diet, the swelling persists, and she has been advised to start on Lasix to manage the fluid retention. Her blood pressure was previously high but is currently well-controlled. The patient also reports a cough that has developed recently, characterized by occasional wheezing when lying down, but denies any mucus production. She has a history of kidney stones, having passed a stone recently and is scheduled for a follow-up ultrasound to check for new stones. Additionally, she experiences back and hip pain, which she attributes to overexertion and is considering physical therapy for relief. Social History - Housing: Currently residing at [facility] while her house is being fixed. - Diet: Has cut out all salt from her diet to manage fluid retention. [facility] Medical History (Updated 11/04/24 @ 15:35 by Trini Araujo PA-C) Kidney stone Hip pain Cellulitis of left foot Pedal edema Medication management Hypothyroidism Class 1 obesity with body mass index (BMI) of 32.0 to 32.9 in adult History of mammogram (~07/15/24) Cough Establishing care with new doctor, encounter for Anxiety GI bleed Surgical History S/P total left hip arthroplasty History of colonoscopy (~07/08/19) S/P tooth extraction Family History Father S/P CABG x 4 Stroke Heart attack Heart disease Mother Cancer Paternal Uncle Heart disease Diabetes Paternal Uncle Heart disease Daughter Multiple sclerosis Paternal Grandmother Diabetes Maternal Grandfather Stomach cancer Social History Housing: House Alcohol intake: current Alcohol intake frequency: holidays/special occasions only Patient Tobacco Use Status: Former Tobacco user service: No Current occupational status: retired Cognitive needs: Yes (walker) Hearing needs: No Vision needs: No Questionnaire PHQ-9 Over the last 2 weeks, how often have you been bothered by any of the following problems? 1. Little interest or pleasure in doing things: more than half the days 2. Feeling down, depressed, or hopeless: more than half the days 3. Trouble falling or staying asleep, or sleeping too much: not at all 4. Feeling tired or having little energy: more than half the days 5. Poor appetite or overeating: not at all 6. Feeling bad about yourself - or that you are a failure or have let yourself or your family down: not at all 7. Trouble concentrating on things, such as reading the newspaper or watching television: not at all 8. Moving or speaking so slowly that other people could have noticed. Or the opposite - being so fidgety or restless that you have been moving around a lot more than usual: not at all 9. Thoughts that you would be better off or of hurting yourself in some way: not at all Total score: 6 Depression Screening Interpretation: Positive Depression Screening Follow-up: Existing condition and In treatment Depression Screening Done: Yes 43517 - PHQ-9 Billing: Yes Source: Developed by Drs. Ulises Thomas, Adry Ochoa, Cruz Oreilly and colleagues, with an educational lorenzo from [employer]. Thrive Questionnaire Date Thrive assessed: 07/28/24 I am a: Patient What is your living situation today?: I have a steady place to live Within the past 12 months, did the food you bought not last and you didn't have the money to get more?: Never true Within the past 12 months, did you worry whether your food would run out before you got money to buy more?: Never true Do you have trouble paying for medicines?: No Do you have trouble getting transportation to medical appointments?: No Do you have trouble paying your heating and electricity bill?: No Do you have trouble taking care of your child, family member or friend?: No Do you have trouble with day-to-day activities such as bathing, preparing meals, shopping, managing finances, etc.?: No Are you currently unemployed and looking for a job?: No Are you interested in more education?: No THRIVE Score: 0 AUDIT C Alcohol Use Questionnaire (AUDIT-C) 1. How often do you have a drink containing alcohol?: Never 3. How often do you have six or more drinks on one occasion?: Never Total Score: 0 Score Reviewed/Action Taken: No MALLY-7 AMB Questionnaire MALLY-7 Date MALLY - 7 assessed: 07/28/24 Feeling nervous, anxious, or on edge: 3 = Nearly every day Not being able to stop or control worryin = Nearly every day Worrying too much about different things: 3 = Nearly every day Trouble relaxin = Nearly every day Being so restless that it is hard to sit still: 0 = Not at all Becoming easily annoyed or irritable: 0 = Not at all Feeling afraid as if something awful might happen: 2 = More than half the days Total MALLY-7 score (0-4 normal; 5-9 mild; 10-14 moderate; 15-21 severe): 14 Source: Developed by Drs. Ulises Thomas, Adry Ochoa, Cruz Oreilly and colleagues, with an educational lorenzo from [employer]. MALLY-7 Assessment Billing MALLY-7 Assessment Tool: MALLY-7 Assessment 41092 Review of Systems Const Details: - Cardiovascular: Denies chest pain, denies dyspnea. - Respiratory: Reports cough with occasional wheezing when lying down, denies mucus production. - Musculoskeletal: Reports severe leg pain due to swelling. All systems reviewed & are unremarkable except as noted in HPI and below Physical exam (Primary Care) Vital Signs: Last Vital Signs Temp 98.1 F 11/04/24 13:59 Pulse 77 11/04/24 13:59 Resp 16 11/04/24 13:59 BP 129/61 11/04/24 13:59 Pulse Ox 96 11/04/24 13:59 Oxygen Delivery Method Room Air 11/04/24 13:59 Care Plan Goal for BP management: <140/90 at Goal BMI result Body Mass Index 36.8 BMI Assessment/Plan discussion: High BMI High, discussed plan: lifestyle, weight reduction, dietary, physical activity, alcohol moderation and other Tobacco/Smoking Status: Tobacco use Status Tobacco use date assessed 10/02/24 11/04/24 14:03 Patient Tobacco Use Status Former Tobacco user 11/04/24 14:03 PHQ-9: PHQ-9 Score PHQ-9: Total score 6 11/04/24 14:11 Depression Screening Interpretation: Positive Depression Screening Follow-up: Existing condition and In treatment Thrive Assessment: Date of Thrive Assessment Date Thrive assessed 07/28/24 11/04/24 14:03 Const Other: Appearance: Alert. Oriented X3. No acute distress. Head: Normal external exam. Normocephalic. Atraumatic. Eyes: Pupils are equal, round, and reactive to light. Extraocular movements intact. Conjunctiva and sclera normal. Eyelids normal. Ears: External auditory canal normal. Tympanic membranes normal. Throat: Pharynx normal. Uvula midline. Moist mucous membranes. Neck: Normal inspection. Neck supple. Full range of motion. No adenopathy. Thyroid Normal. No meningeal signs. No neck mass noted. Cardiovascular: Normal heart rate and rhythm. Heart sound normal. No murmurs noted. Pulses normal throughout. Respiratory: No respiratory distress. Painless inspiration. Breath sounds normal. Slight wheeze noted upon exhalation when lying in bed. No accessory muscle usage noted or decreased air movement noted. Back: No costovertebral angle tenderness. Full range of motion noted. Skin: Skin warm and dry. Normal skin color. Normal skin turgor. No rashes/lesions/lacerations noted. Extremities: Bilateral +1 pitting edema to lower extremities. No calf tenderness is noted. Mild redness to the dorsal aspect of the left lateral foot consistent with mild cellulitis. Otherwise all other extremities exhibit normal range of motion nontender no other signs of infection to the rest of the body. Neuro: Oriented X 3. No motor deficit. No sensory deficit. Reflexes normal. Results Reviewed Results Reviewed: - Ultrasound: Negative for blood clots in both legs. Coding Level of Care Code Est Pt Level 4 (51452) Complex EM visit Add On G2211 Diagnoses Pedal edema R60.0 Essential hypertension I10 Cellulitis of left foot L03.116 Cough R05.9 Lumbar spondylosis M47.816 Hip pain M25.559 Kidney stone N20.0 Additional Codes MALLY-7 Assessment Billing - MALLY-7 Assessment Tool: MALLY-7 Assessment 12695 ([id number]) PHQ-9 - 23279 - PHQ-9 Billing: Yes ([id number]) Assessment & Plan Assessment & Plan (1) Pedal edema: Code(s): R60.0 - Localized edema Category: Medical Plan: The patient will be started on Lasix 20 mg for five days to manage fluid retention. Blood work will be conducted to monitor kidney function and electrolyte levels, specifically potassium and sodium. A referral to vascular surgery has been made to investigate the cause of leg swelling. (2) Essential hypertension: Code(s): I10 - Essential (primary) hypertension Category: Medical Plan: The patient's blood pressure is currently well-controlled, and no changes to the current management plan are necessary at this time. (3) Cellulitis of left foot: Code(s): L03.116 - Cellulitis of left lower limb Category: Medical Plan: The patient is currently on Keflex and will be started on doxycycline for 10 days to ensure adequate coverage. She is advised to avoid sun exposure while on doxycycline. (4) Cough: Code(s): R05.9 - Cough, unspecified Category: Medical Plan: A chest x-ray will be performed to rule out any underlying infection or fluid retention in the lungs. Blood work will also be repeated to check for signs of infection. (5) Lumbar spondylosis: Code(s): M47.816 - Spondylosis without myelopathy or radiculopathy, lumbar region Category: Medical Plan: The patient is considering physical therapy for back pain management. A muscle relaxer may be prescribed if necessary. (6) Hip pain: Code(s): M25.559 - Pain in unspecified hip Category: Medical Plan: The patient is considering physical therapy for hip pain management. A muscle relaxer may be prescribed if necessary. (7) Kidney stone: Code(s): N20.0 - Calculus of kidney Category: Medical Plan: The patient is scheduled for a follow-up ultrasound to monitor for new kidney stones. Plan Plan Patient was informed and verbally consented to the use of an ambient scribe for clinic note documentation during this visit. 1. Fluid Retention The patient will be started on Lasix 20 mg for five days to manage fluid retention. Blood work will be conducted to monitor kidney function and electrolyte levels, specifically potassium and sodium. A referral to vascular surgery has been made to investigate the cause of leg swelling. 2. Hypertension The patient's blood pressure is currently well-controlled, and no changes to the current management plan are necessary at this time. 3. Cellulitis Of The Left Lower Extremity The patient is currently on Keflex and will be started on doxycycline for 10 days to ensure adequate coverage. She is advised to avoid sun exposure while on doxycycline. 4. Cough A chest x-ray will be performed to rule out any underlying infection or fluid retention in the lungs. Blood work will also be repeated to check for signs of infection. 5. Back Pain The patient is considering physical therapy for back pain management. A muscle relaxer may be prescribed if necessary. 6. Hip Pain The patient is considering physical therapy for hip pain management. A muscle relaxer may be prescribed if necessary. 7. Kidney Stones The patient is scheduled for a follow-up ultrasound to monitor for new kidney stones. I discussed with the patient the management of her fluid retention, including the use of Lasix and the need for blood work to monitor electrolytes. We also talked about the addition of doxycycline for cellulitis and the importance of avoiding sun exposure while on this medication. I recommended a chest x-ray and blood work to evaluate her cough and potential fluid retention in the lungs. A referral to vascular surgery was made to assess the cause of her leg swelling. We also discussed the possibility of physical therapy for her back and hip pain. Follow-up care was planned, and the patient was advised to return sooner if her symptoms worsen. Orders: Orders Complete Blood Count no Diff Today R60.0 - Localized edema Comprehensive Met. Panel Today Z00.00 - Encounter for general adult medical examination without abnormal findings Erythrocyte Sedimentation Rate Today Z00.00 - Encounter for general adult medical examination without abnormal findings XR chest 2V Today R05.9 - Cough, unspecified, R60.0 - Localized edema B Type Natriuretic Peptide Today R60.0 - Localized edema C Reactive Protein Today Z00.00 - Encounter for general adult medical examination without abnormal findings Referrals Vascular Surgery Referral R60.0 - Localized edema Medications: New furosemide (Lasix) 20 mg PO DAILY 5 tabs 0RF 5 days doxycycline hyclate 100 mg PO BID 20 tabs 0RF 10 days cyclobenzaprine 10 mg PO Q8H PRN 30 tabs 0RF muscle spasm Patient Instructions: - Take Lasix 20 mg daily for five days as prescribed. - Continue taking Keflex and start doxycycline as directed, avoiding sun exposure. - Complete blood work and chest x-ray as soon as possible. - Attend the vascular surgery appointment when scheduled. - Consider physical therapy for back and hip pain. - Return for follow-up in three months or sooner if symptoms worsen.
[2024-11-04 13:59] VITALS: BP 129/61; PULSE 77; RESP 16; TEMP 36.7; O2SAT 96; BMI 36.8
--- OUTSIDE RECORDS SUMMARY | 2024-11-04 16:06 | XMS_ITS | Clinical Summary ---
Author Organization [facility] Address [address] [place], [place] [id number] Phone Care Team Providers Care Sales Apprentice Name Role Phone Rodolfo Stein MD Primary Care Provider [phone] Allergies Active Allergy Reactions Criticality Noted Date [...] VACCINES (1 of 2) 1964 OSTEOPOROSIS SCREENING INITIAL (ONE-TIME) 2010 DIABETIC EYE EXAM 04/23/2014 URINE MICROALBUMIN/CREATININE RATIO 04/23/2014 RSV VACCINE (1 - 1-dose 75+ series) 2020 COVID-19 VACCINE ( - season) 2023 06/29/2020, 06/08/2020 INFLUENZA VACCINE (#1) 2024 0, 12/01/2018, 12/24/2017, Additional history exists SMOKING STATUS SCREENING (Once After 26 Yrs) Completed 02/28/2018 HEPATITIS A [...] topic Medical Devices Not on file Insurance [facility] [place] [address] [place] [id number] [address] [place] [place] [address] [place], [place] [address]O [facility] Care Teams Sales Apprentice Relationship Specialty Start Date End Date Rodolfo Stein MD [address] [place] [id number] PCP - General Internal Medicine 01/22/14 Additional Source Comments The information contained in this document represents components of the legal health record. It is not the complete legal health record.[facility]
--- OUTSIDE RECORDS SUMMARY | 2024-11-04 16:06 | XMS_ITS | Encounter Summary ---
Author Organization [facility] Address [address] [place] [address] Care Team Providers Care Information Clerk [employer] Name Role Phone Yaya Dobbins MD Primary Care Provider [phone] Encounter Details Date Type Department Care Team (Late st Contact Info) Description 09/11/[address] [facility] - Main Lab [address] [facility] [place] [address] Yaya Dobbins MD [address] [place] [address] Hyperlipidemia, unspecified Social History Tobacco [...] LAB CHEMISTRY METHOD 09/14/2024 1:49 PM EDT [facility] Potassium 4.0 3.5 - 5.5 mmol/L LAB CHEMISTRY METHOD 09/14/2024 1:49 PM EDT [facility] Chloride 112(H) 96 - 110 mmol/L [...] LAB CHEMISTRY METHOD 09/14/2024 1:49 PM EDT [facility] Total Bilirubin 0.5 0.0 - 1.4 mg/dL LAB CHEMISTRY METHOD 09/14/2024 1:49 PM [facility] Blood Venous blood specimen / Unknown Venipuncture / Unknown 09/14/2024 4:53 AM EDT 09/14/2024 10:55 AM EDT us Yaya Dobbins MD LAB BLOOD ORDERABLES Final Resu lt [facility] [address] [place] [address], * (ABNORMAL) Complete blood count (09/14/2024 4:53 [...] LAB HEMETOLOGY METHOD 09/14/2024 11:19 AM EDT [facility] RDW 14.9 11.0 - 15.0 % LAB HEMETOLOGY METHOD 09/14/2024 11:19 AM EDT [facility] Platelets 321 130 - 400 K/mcL LAB HEMETOLOGY METHOD 09/14/2024 11:19 AM EDT [facility] MPV 10.2 7.0 - 11.0 FL LAB HEMETOLOGY METHOD 09/14/2024 11:19 AM EDT [facility] NRBC 0.0 <1.0 % LAB HEMETOLOGY METHOD 09/14/2024 11:19 AM EDT [facility] NRBC Absolute 0.00 <0.10 K/mcL LAB HEMETOLOGY METHOD 09/14/2024 11:19 AM EDT [facility] Blood Venous blood specimen / Unknown Venipuncture / Unknown 09/14/2024 4:53 AM EDT 09/14/2024 10:54 AM EDT Yaya Dobbins MD LAB BLOOD ORDERABLES Final Resu lt [facility] [address] [place] [address], documented in this encounter Visit Diagnoses Diagnosis Hyperlipidemia, unspecified documented in this encounter Care Teams Information Clerk [employer] Relationship Specialty Start Date End Date Yaya Dobbins MD [address] [place] [address] PCP - General Internal Medicine 09/05/24 documented as of this encounter
--- OUTSIDE RECORDS SUMMARY | 2024-11-04 16:06 | XMS_ITS | Encounter Summary ---
Author Organization [facility] Address [address] [place] [address] Care Team Providers Care Welding Machine Assembler Name Role Phone Yaya Dobbins MD Primary Care Provider [phone] Encounter Details Date Type Department Care Team (Late st Contact Info) Description 09/19/2024 Lab Requisition [facility] - Main Lab [address] [facility] [place] [address] Yaya Dobbins MD [address] [place] [address] Hyperlipidemia, unspecified Social History Tobacco [...] LAB CHEMISTRY METHOD 09/21/2024 11:20 AM T [facility] Potassium 4.0 3.5 - 5.5 mmol/L LAB CHEMISTRY METHOD 09/21/2024 11:20 AM EDT [facility] Chloride 114(H) 96 - 110 mmol/L LAB CHEMISTRY METHOD 09/21/2024 11:20 AM [facility] CO2 22 21 - 32 mmol/L LAB CHEMISTRY METHOD 09/21/2024 11:20 AM [facility] Anion Gap 8 3 - 11 LAB CHEMISTRY METHOD 09/21/2024 11:20 AM [facility] Glucose 82 70 - 100 mg/dL LAB CHEMISTRY METHOD 09/21/2024 11:20 AM [facility] BUN 13 5 - 25 mg/dL LAB CHEMISTRY METHOD 09/21/2024 11:20 AM [facility] Creatinine 0.61 0.50 - 1.10 mg/dL LAB CHEMISTRY METHOD 09/21/2024 11:20 AM [facility] eGFR 92 >=60 mL/min/1. 73m2 LAB CHEMISTRY METHOD 09/21/2024 11:20 AM [facility] Comment:Calculation based on the Chronic Kidney Disease Epidemiology Collaboration (CKD-EPI) equation refit without adjustment for race. BUN/Creatinine Ratio 21.3 LAB CHEMISTRY METHOD 09/21/2024 11:20 AM [facility] Calcium 9.0 8.5 - 10.5 mg/dL LAB CHEMISTRY METHOD 09/21/2024 11:20 AM [facility] AST (SGOT) 40 10 - 42 unit/L LAB CHEMISTRY METHOD 09/21/2024 11:20 AM [facility] ALT (SGPT) 31 10 - 60 unit/L LAB CHEMISTRY METHOD 09/21/2024 11:20 AM [facility] Alkaline Phosphatase 140(H) 42 - 121 unit/L LAB CHEMISTRY METHOD 09/21/2024 11:20 AM [facility] Total Protein 5.3(L) 6.0 - 8.0 g/dL LAB CHEMISTRY METHOD 09/21/2024 11:20 AM [facility] Albumin 3.1(L) 3.2 - 5.0 g/dL LAB CHEMISTRY METHOD 09/21/2024 11:20 AM [facility] Total Bilirubin 0.5 0.0 - 1.4 mg/dL LAB CHEMISTRY METHOD 09/21/2024 11:20 AM [facility] Blood Venous blood specimen / Unknown Venipuncture / Unknown 09/21/2024 4:46 AM EDT 09/21/2024 11:05 AM EDT us Yaya Dobbins MD LAB BLOOD ORDERABLES Final Resu lt [facility] [address] [place] [address], * (ABNORMAL) Complete blood count (09/21/2024 4:46 AM EDT) WBC 5.6 4.8 - 10.8 K/mcL LAB HEMETOLOGY METHOD 09/21/2024 10:22 AM [facility] RBC 3.10(L) 3.80 - 4.80 M/mcL LAB HEMETOLOGY METHOD 09/21/2024 10:22 AM [facility] Hemoglobin 9.8(L) 11.5 - 16.0 g/dL LAB HEMETOLOGY METHOD 09/21/2024 10:22 AM [facility] Hematocrit 31.4(L) 35.0 - 47.0 % LAB HEMETOLOGY METHOD 09/21/2024 10:22 AM [facility] MCV 101.0(H) 79.0 - 98.0 FL LAB HEMETOLOGY METHOD 09/21/2024 10:22 AM [facility] MCH 31.5 27.0 - 32.0 pcg LAB HEMETOLOGY METHOD 09/21/2024 10:22 AM [facility] MCHC 31.2(L) 32.0 - 37.0 g/dL LAB HEMETOLOGY METHOD 09/21/2024 10:22 AM EDT [facility] RDW 15.7(H) 11.0 - 15.0 % LAB HEMETOLOGY METHOD 09/21/2024 10:22 AM EDT [facility] Platelets 273 130 - 400 K/mcL LAB HEMETOLOGY METHOD 09/21/2024 10:22 AM EDT [facility] MPV 10.6 7.0 - 11.0 FL LAB HEMETOLOGY METHOD 09/21/2024 10:22 AM EDT [facility] NRBC 0.0 <1.0 % LAB HEMETOLOGY METHOD 09/21/2024 10:22 AM EDT [facility] NRBC Absolute 0.00 <0.10 K/mcL LAB HEMETOLOGY METHOD 09/21/2024 10:22 AM EDT [facility] Blood Venous blood specimen / Unknown Venipuncture / Unknown 09/21/2024 4:46 AM EDT 09/21/2024 10:02 AM EDT Yaya Dobbins MD LAB BLOOD ORDERABLES Final Resu lt [facility] [address] [place] [address], documented in this encounter Visit Diagnoses Diagnosis Hyperlipidemia, unspecified documented in this encounter Care Teams Welding Machine Assembler Relationship Specialty Start Date End Date Yaya Dobbins MD [address] [place] [address] PCP - General Internal Medicine 09/05/24 documented as of this encounter
--- OUTSIDE RECORDS SUMMARY | 2024-11-04 16:06 | XMS_ITS | Encounter Summary ---
Author Organization [facility] Address [address] [place] [address] Care Team Providers Care Towel Sewer Name Role Phone Yaya Dobbins MD Primary Care Provider [phone] Encounter Details Date Type Department Care Team (Late st Contact Info) Description 09/16/2024 Lab Requisition [facility] - Main Lab [address] [facility] [place] [address] Yaya Dobbins MD [address] [place] [address] Hyperlipidemia, unspecified Social History Tobacco [...] LAB CHEMISTRY METHOD 09/17/2024 9:16 AM EDT [facility] Potassium 4.1 3.5 - 5.5 mmol/L LAB CHEMISTRY METHOD 09/17/2024 9:16 AM EDT [facility] Chloride 114(H) 96 - 110 mmol/L LAB CHEMISTRY METHOD 09/17/2024 9:16 AM [facility] CO2 26 21 - 32 mmol/L LAB CHEMISTRY METHOD 09/17/2024 9:16 AM [facility] LAB Anion Gap 5 3 - 11 LAB CHEMISTRY METHOD 09/17/2024 9:16 AM [facility] Glucose 77 70 - 100 mg/dL LAB CHEMISTRY METHOD 09/17/2024 9:16 AM [facility] BUN 11 5 - 25 mg/dL LAB CHEMISTRY METHOD 09/17/2024 9:16 AM [facility] Creatinine 0.65 0.50 - 1.10 mg/dL LAB CHEMISTRY METHOD 09/17/2024 9:16 AM [facility] LAB eGFR 90 >=60 mL/min/1. 73m2 LAB CHEMISTRY METHOD 09/17/2024 9:16 AM [facility] LAB Comment:Calculation based on the Chronic Kidney Disease Epidemiology Collaboration (CKD-EPI) equation refit without adjustment for race. BUN/Creatinine Ratio 16.9 LAB CHEMISTRY METHOD 09/17/2024 9:16 AM [facility] Calcium 9.2 8.5 - 10.5 mg/dL LAB CHEMISTRY METHOD 09/17/2024 9:16 AM [facility] LAB Blood Venous blood specimen / Unknown Venipuncture / Unknown 09/17/2024 4:51 AM EDT 09/17/2024 7:42 AM EDT us Yaya Dobbins MD LAB BLOOD ORDERABLES Final Resu lt [facility] LAB [address] [place] [address], * (ABNORMAL) Complete blood count (09/17/2024 4:51 AM EDT) WBC 5.9 4.8 - 10.8 K/[facility] LAB HEMETOLOGY METHOD 09/17/2024 8:39 AM [facility] LAB RBC 3.30(L) 3.80 - 4.80 M/mcL LAB HEMETOLOGY METHOD 09/17/2024 8:39 AM [facility] Hemoglobin 10.1(L) 11.5 - 16.0 g/dL LAB HEMETOLOGY METHOD 09/17/2024 8:39 AM [facility] LAB Hematocrit 32.4(L) 35.0 - 47.0 % LAB HEMETOLOGY METHOD 09/17/2024 8:39 AM [facility] LAB MCV 99.7(H) 79.0 - 98.0 FL LAB HEMETOLOGY METHOD 09/17/2024 8:39 AM [facility] LAB MCH 31.1 27.0 - 32.0 pcg LAB HEMETOLOGY METHOD 09/17/2024 8:39 AM [facility] LAB MCHC 31.2(L) 32.0 - 37.0 g/dL LAB HEMETOLOGY METHOD 09/17/2024 8:39 AM [facility] LAB RDW 15.2(H) 11.0 - 15.0 % LAB HEMETOLOGY METHOD 09/17/2024 8:39 AM [facility] LAB Platelets 324 130 - 400 K/mcL LAB HEMETOLOGY METHOD 09/17/2024 8:39 AM [facility] LAB MPV 10.1 7.0 - 11.0 FL LAB HEMETOLOGY METHOD 09/17/2024 8:39 AM [facility] LAB NRBC 0.0 <1.0 % LAB HEMETOLOGY METHOD 09/17/2024 8:39 AM [facility] LAB NRBC Absolute 0.00 <0.10 K/mcL LAB HEMETOLOGY METHOD 09/17/2024 8:39 AM [facility] LAB Blood Venous blood specimen / Unknown Venipuncture / Unknown 09/17/2024 4:51 AM EDT 09/17/2024 7:42 AM EDT Yaya Dobbins MD LAB BLOOD ORDERABLES Final Resu lt [facility] [address] [place] [address], documented in this encounter Visit Diagnoses Diagnosis Hyperlipidemia, unspecified documented in this encounter Care Teams Towel Sewer Relationship Specialty Start Date End Date Yaya Dobbins MD [address] [place] [address] PCP - General Internal Medicine 09/05/24 documented as of this encounter
--- OUTSIDE RECORDS SUMMARY | 2024-11-04 16:06 | XMS_ITS | Encounter Summary ---
Author Organization [facility] Address [address] [place] [address] Care Team Providers Care Retail Sales Associate Name Role Phone Yaya Dobbins MD Primary Care Provider [phone] Encounter Details Date Type Department Care Team (Late st Contact Info) Description 09/07/2024 Lab Requisition [facility] - Main Lab [address] [facility] [place] [address] Yaya Dobbins MD [address] [place] [address] Hypothyroidism, unspecified; Hyperlipidemia, unspecified Social [...] LAB CHEMISTRY METHOD 09/07/2024 12:51 PM EDT [facility] Potassium 4.0 3.5 - 5.5 mmol/L LAB CHEMISTRY METHOD 09/07/2024 12:51 PM EDT [facility] Chloride 111(H) 96 - 110 mmol/L LAB CHEMISTRY METHOD 09/07/2024 12:51 PM [facility] LAB CO2 26 21 - 32 mmol/L LAB CHEMISTRY METHOD 09/07/2024 12:51 PM [facility] LAB Anion Gap 7 3 - 11 LAB CHEMISTRY METHOD 09/07/2024 12:51 PM [facility] Glucose 80 70 - 100 mg/dL LAB CHEMISTRY METHOD 09/07/2024 12:51 PM [facility] BUN 10 5 - 25 mg/dL LAB CHEMISTRY METHOD 09/07/2024 12:51 PM [facility] Creatinine 0.60 0.50 - 1.10 mg/dL LAB CHEMISTRY METHOD 09/07/2024 12:51 PM [facility] LAB eGFR 92 >=60 mL/min/1. 73m2 LAB CHEMISTRY METHOD 09/07/2024 12:51 PM [facility] Comment:Calculation based on the Chronic Kidney Disease Epidemiology Collaboration (CKD-EPI) equation refit without adjustment for race. BUN/Creatinine Ratio 16.7 LAB CHEMISTRY METHOD 09/07/2024 12:51 PM [facility] Calcium 8.6 8.5 - 10.5 mg/dL LAB CHEMISTRY METHOD 09/07/2024 12:51 PM [facility] AST (SGOT) 48(H) 10 - 42 unit/L LAB CHEMISTRY METHOD 09/07/2024 12:51 PM [facility] ALT (SGPT) 32 10 - 60 unit/L LAB CHEMISTRY METHOD 09/07/2024 12:51 PM [facility] Alkaline Phosphatase 106 42 - 121 unit/L LAB CHEMISTRY METHOD 09/07/2024 12:51 PM [facility] Total Protein 5.4(L) 6.0 - 8.0 g/dL LAB CHEMISTRY METHOD 09/07/2024 12:51 PM [facility] Albumin 2.9(L) 3.2 - 5.0 g/dL LAB CHEMISTRY METHOD 09/07/2024 12:51 PM EDT [facility] Total Bilirubin 0.9 0.0 - 1.4 mg/dL LAB CHEMISTRY METHOD 09/07/2024 12:51 PM EDT [facility] Blood Venous blood specimen / Unknown Venipuncture / Unknown 09/07/2024 5:09 AM EDT 09/07/2024 11:28 AM EDT us Yaya Dobbins MD LAB BLOOD ORDERABLES Final Resu lt [facility] [address] [place] [address], [place] [phone] * (ABNORMAL) Complete blood count (09/07/2024 5:09 AM EDT) WBC 8.2 4.8 - 10.8 K/mcL LAB HEMETOLOGY METHOD 09/07/2024 1:09 PM EDT [facility] RBC 3.10(L) 3.80 - 4.80 M/mcL LAB HEMETOLOGY METHOD 09/07[facility]2024 [facility] Hemoglobin 9.3(L) 11.5 - 16.0 g/dL LAB HEMETOLOGY METHOD 09/07/2024 1:09 PM EDT [facility] Hematocrit 29.6(L) 35.0 - 47.0 % LAB HEMETOLOGY METHOD 09/07/2024 1:09 PM EDT [facility] MCV 97.0 79.0 - 98.0 FL LAB HEMETOLOGY METHOD 09/07/2024 [facility] MCH 30.5 27.0 - 32.0 pcg LAB HEMETOLOGY METHOD 09/07/2024 1:09 PM EDT [facility] MCHC 31.4(L) 32.0 - 37.0 g/dL LAB HEMETOLOGY METHOD 09/07/2024 1:09 PM EDT [facility] RDW 13.6 11.0 - 15.0 % LAB HEMETOLOGY METHOD 09/07/2024 1:09 PM EDT [facility] Platelets 229 130 - 400 K/mcL LAB HEMETOLOGY METHOD 09/07/2024 1:09 PM EDT [facility] MPV 10.7 7.0 - 11.0 FL LAB HEMETOLOGY METHOD 09/07/2024 1:09 PM EDT [facility] NRBC 0.0 <1.0 % LAB HEMETOLOGY METHOD 09/07/2024 1:09 PM EDT [facility] NRBC Absolute 0.00 <0.10 K/mcL LAB HEMETOLOGY METHOD 09/07/2024 1:09 PM EDT [facility] Blood Venous blood specimen / Unknown Venipuncture / Unknown 09/07/2024 5:09 AM EDT 09/07/2024 11:28 AM EDT Yaya Dobbins MD LAB BLOOD ORDERABLES Final Resu lt [facility] [address] [place] [address], [place] [phone] documented in this encounter Visit Diagnoses Diagnosis Hypothyroidism, unspecified Hyperlipidemia, unspecified documented in this encounter Care Teams Retail Sales Associate Relationship Specialty Start Date End Date Yaya Dobbins MD [address] [place] [address] PCP - General Internal Medicine 09/05/24 documented as of this encounter
--- OUTSIDE RECORDS SUMMARY | 2024-11-04 16:06 | XMS_ITS | Clinical Summary ---
Author Organization [address] Address [address] [place] [address] Phone Care Team Providers Care Securities Counselor Name Role Phone Yaya Dobbins MD Primary Care Provider [phone] Encounters Date Type Department Care Team Description 09/19/2024 Lab Requisition [facility] Lab [address] [place] [address] Yaya Dobbins MD Hyperlipidemia, unspecified 09/16/2024 Lab Requisition [facility] Lab [address] [place] [address] Yaya Dobbins MD Hyperlipidemia, unspecified 09/11/2024 Lab Requisition [facility] Lab [address] [place] [address] Yaya Dobbins MD Hyperlipidemia, unspecified 09/09/2024 Lab Requisition [facility] Lab [address] [place] [address] Yaya Dobbins MD Hyperlipidemia, unspecified 09/07/2024 Lab Requisition [facility] Lab [address] [place] [address] Yaya Dobbins MD Hypothyroidism, unspecified; Hyperlipidemia, unspecified 09/05/2024 Lab Requisition [facility] Lab [address] [place] [address] Yaya Dobbins MD Hyperlipidemia, unspecified; Hypothyroidism, unspecified [...] of6 resultswithin the time period is included. [facility] WBC 5.6 4.8 - 10.8 K/[facility] LAB HEMETOLOGY METHOD 09/21/2024 10:22 AM EDT [facility] RBC 3.10(L) 3.80 - 4.80 M/mcL LAB HEMETOLOGY METHOD 09/21/2024 10:22 AM [facility] Hemoglobin 9.8(L) 11.5 - 16.0 g/dL LAB HEMETOLOGY METHOD 09/21/2024 10:22 AM [facility] LAB Hematocrit 31.4(L) 35.0 - 47.0 % LAB HEMETOLOGY METHOD 09/21/2024 10:22 AM [facility] LAB MCV 101.0(H) 79.0 - 98.0 FL LAB HEMETOLOGY METHOD 09/21/2024 10:22 AM [facility] LAB MCH 31.5 27.0 - 32.0 pcg LAB HEMETOLOGY METHOD 09/21/2024 10:22 AM [facility] LAB MCHC 31.2(L) 32.0 - 37.0 g/dL LAB HEMETOLOGY METHOD 09/21/2024 10:22 AM [facility] LAB RDW 15.7(H) 11.0 - 15.0 % LAB HEMETOLOGY METHOD 09/21/2024 10:22 AM [facility] LAB Platelets 273 130 - 400 K/mcL LAB HEMETOLOGY METHOD 09/21/2024 10:22 AM [facility] LAB MPV 10.6 7.0 - 11.0 FL LAB HEMETOLOGY METHOD 09/21/2024 10:22 AM [facility] NRBC 0.0 <1.0 % LAB HEMETOLOGY METHOD 09/21/2024 10:22 AM [facility] NRBC Absolute 0.00 <0.10 K/mcL LAB HEMETOLOGY METHOD 09/21/2024 10:22 AM [facility] Blood Venous blood specimen / Unknown Venipuncture / Unknown 09/21/2024 4:46 AM EDT 09/21/2024 10:02 AM EDT us Yaya Dobbins MD LAB BLOOD ORDERABLES Final Resu lt [facility] [address] [place] [address], [place] [phone] * (ABNORMAL) Comprehensive metabolic panel (09/21/2024 4:46 AM EDT) Only the most recent of4 resultswithin the time period is included. Sodium 144 133 - 145 mmol/L LAB CHEMISTRY METHOD 09/21/2024 11:20 AM [facility] Potassium 4.0 3.5 - 5.5 mmol/L LAB CHEMISTRY METHOD 09/21/2024 11:20 AM [facility] Chloride 114(H) 96 - 110 mmol/L LAB CHEMISTRY METHOD 09/21/2024 11:20 AM [facility] CO2 22 21 - 32 mmol/L LAB CHEMISTRY METHOD 09/21/2024 11:20 AM [facility] Anion Gap 8 3 - 11 LAB CHEMISTRY METHOD 09/21/2024 11:20 AM [facility] Glucose 82 70 - 100 mg/dL LAB CHEMISTRY METHOD 09/21/2024 11:20 AM [facility] BUN 13 5 - 25 mg/dL LAB CHEMISTRY METHOD 09/21/2024 11:20 AM [facility] Creatinine 0.61 0.50 - 1.10 mg/dL LAB CHEMISTRY METHOD 09/21/2024 11:20 AM [facility] LAB eGFR 92 >=60 mL/min/1. 73m2 LAB CHEMISTRY METHOD 09/21/2024 11:20 AM [facility] Comment:Calculation based on the Chronic Kidney Disease Epidemiology Collaboration (CKD-EPI) equation refit without adjustment for race. BUN/Creatinine Ratio 21.3 LAB CHEMISTRY METHOD 09/21/2024 11:20 AM [facility] Calcium 9.0 8.5 - 10.5 mg/dL LAB CHEMISTRY METHOD 09/21/2024 11:20 AM [facility] AST (SGOT) 40 10 - 42 unit/L LAB CHEMISTRY METHOD 09/21/2024 11:20 AM [facility] ALT (SGPT) 31 10 - 60 unit/L LAB CHEMISTRY METHOD 09/21/2024 11:20 AM [facility] Alkaline Phosphatase 140(H) 42 - 121 unit/L LAB CHEMISTRY METHOD 09/21/2024 11:20 AM [facility] Total Protein 5.3(L) 6.0 - 8.0 g/dL LAB CHEMISTRY METHOD 09/21/2024 11:20 AM [facility] Albumin 3.1(L) 3.2 - 5.0 g/dL LAB CHEMISTRY METHOD 09/21/2024 11:20 AM [facility] Total Bilirubin 0.5 0.0 - 1.4 mg/dL LAB CHEMISTRY METHOD 09/21/2024 11:20 AM [facility] Blood Venous blood specimen / Unknown Venipuncture / Unknown 09/21/2024 4:46 AM EDT 09/21/2024 11:05 AM EDT us Yaya Dobbins MD LAB BLOOD ORDERABLES Final Resu lt [facility] [address] [place] [address], * (ABNORMAL) Basic metabolic panel (09/17/2024 4:51 AM EDT) Only the most recent of2 resultswithin the time period is included. Sodium 145 133 - 145 mmol/L LAB CHEMISTRY METHOD 09/17/2024 9:16 AM [facility] Potassium 4.1 3.5 - 5.5 mmol/L LAB CHEMISTRY METHOD 09/17/2024 9:16 AM [facility] Chloride 114(H) 96 - 110 mmol/L LAB CHEMISTRY METHOD 09/17/2024 9:16 AM [facility] CO2 26 21 - 32 mmol/L LAB CHEMISTRY METHOD 09/17/2024 9:16 AM [facility] Anion Gap 5 3 - 11 LAB CHEMISTRY METHOD 09/17/2024 9:16 AM [facility] Glucose 77 70 - 100 mg/dL LAB CHEMISTRY METHOD 09/17/2024 9:16 AM [facility] BUN 11 5 - 25 mg/dL LAB CHEMISTRY METHOD 09/17/2024 9:16 AM [facility] Creatinine 0.65 0.50 - 1.10 mg/dL LAB CHEMISTRY METHOD 09/17/2024 9:16 AM [facility] LAB eGFR 90 >=60 mL/min/1. 73m2 LAB CHEMISTRY METHOD 09/17/2024 9:16 AM [facility] Comment:Calculation based on the Chronic Kidney Disease Epidemiology Collaboration (CKD-EPI) equation refit without adjustment for race. BUN/Creatinine Ratio 16.9 LAB CHEMISTRY METHOD 09/17/2024 9:16 AM [facility] Calcium 9.2 8.5 - 10.5 mg/dL LAB CHEMISTRY METHOD 09/17/2024 9:16 AM [facility] Blood Venous blood specimen / Unknown Venipuncture / Unknown 09/17/2024 4:51 AM EDT 09/17/2024 7:42 AM EDT us Yaya Dobbins MD LAB BLOOD ORDERABLES Final Resu lt [facility] [address] [place] [address], [place] [phone] from Last 3 Months Insurance [facility] Care Teams Securities Counselor Relationship Specialty Start Date End Date Yaya Dobbins MD [address] [place] [id number] PCP - General Internal Medicine 09/05/24
--- OUTSIDE RECORDS SUMMARY | 2024-11-04 16:06 | XMS_ITS | Encounter Summary ---
Author Organization [facility] Address [address] [place] [address] Care Team Providers Care Behavioral Health Specialist Name Role Phone Yaya Dobbins MD Primary Care Provider [phone] Encounter Details Date Type Department Care Team (Late st Contact Info) Description 09/09/2024 Lab Requisition [facility] - Main Lab [address] [facility] [place] [address] Yaya Dobbins MD [address] [place] [address] Hyperlipidemia, unspecified Social History Tobacco [...] LAB CHEMISTRY METHOD 09/10/2024 9:35 AM EDT [facility] Potassium 4.2 3.5 - 5.5 mmol/L LAB CHEMISTRY METHOD 09/10/2024 9:35 AM EDT [facility] Chloride 113(H) 96 - 110 mmol/L LAB CHEMISTRY METHOD 09/10/2024 9:[address] [facility] CO2 26 21 - 32 mmol/L LAB CHEMISTRY METHOD 09/10/2024 9:[address] [facility] Anion Gap 5 3 - 11 LAB CHEMISTRY METHOD 09/10/2024 9:[address] [facility] LAB Glucose 86 70 - 100 mg/dL LAB CHEMISTRY METHOD 09/10/2024 9:[address] [facility] BUN 10 5 - 25 mg/dL LAB CHEMISTRY METHOD 09/10/2024 9:[address] [facility] Creatinine 0.51 0.50 - 1.10 mg/dL LAB CHEMISTRY METHOD 09/10/2024 9:[address] [facility] LAB eGFR 96 >=60 mL/min/1. 73m2 LAB CHEMISTRY METHOD 09/10/2024 9:[address] [facility] Comment:Calculation based on the Chronic Kidney Disease Epidemiology Collaboration (CKD-EPI) equation refit without adjustment for race. BUN/Creatinine Ratio 19.6 LAB CHEMISTRY METHOD 09/10/2024 9:[address] [facility] Calcium 9.1 8.5 - 10.5 mg/dL LAB CHEMISTRY METHOD 09/10/2024 9:[address] [facility] Blood Venous blood specimen / Unknown Venipuncture / Unknown 09/10/2024 4:58 AM EDT 09/10/2024 8:42 AM EDT us Yaya Dobbins MD LAB BLOOD ORDERABLES Final Resu lt [facility] [address] [place] [address], * (ABNORMAL) Complete blood count (09/10/2024 4:58 AM EDT) WBC 7.7 4.8 - 10.8 K/[facility] LAB HEMETOLOGY METHOD 09/10/2024 9:[address] [facility] RBC 3.00(L) 3.80 - 4.80 M/mcL LAB HEMETOLOGY METHOD 09/10/2024 9:[address] [facility] Hemoglobin 9.5(L) 11.5 - 16.0 g/dL LAB HEMETOLOGY METHOD 09/10/2024 9:[address] [facility] LAB Hematocrit 29.7(L) 35.0 - 47.0 % LAB HEMETOLOGY METHOD 09/10/2024 9:[address] [facility] LAB MCV 98.3(H) 79.0 - 98.0 FL LAB HEMETOLOGY METHOD 09/10/2024 9:[address] [facility] LAB MCH 31.5 27.0 - 32.0 pcg LAB HEMETOLOGY METHOD 09/10/2024 9:[address] [facility] MCHC 32.0 32.0 - 37.0 g/dL LAB HEMETOLOGY METHOD 09/10/2024 9:[address] [facility] RDW 14.1 11.0 - 15.0 % LAB HEMETOLOGY METHOD 09/10/2024 9:[address] [facility] Platelets 304 130 - 400 K/mcL LAB HEMETOLOGY METHOD 09/10/2024 9:[address] [facility] LAB MPV 10.5 7.0 - 11.0 FL LAB HEMETOLOGY METHOD 09/10/2024 9:[address] [facility] LAB NRBC 0.0 <1.0 % LAB HEMETOLOGY METHOD 09/10/2024 9:[address] [facility] LAB NRBC Absolute 0.00 <0.10 K/mcL LAB HEMETOLOGY METHOD 09/10/2024 9:[address] [facility] Blood Venous blood specimen / Unknown Venipuncture / Unknown 09/10/2024 4:58 AM EDT 09/10/2024 8:45 AM EDT Yaya Dobbins MD LAB BLOOD ORDERABLES Final Resu lt [facility] [address] [place] [address], documented in this encounter Visit Diagnoses Diagnosis Hyperlipidemia, unspecified documented in this encounter Care Teams Behavioral Health Specialist Relationship Specialty Start Date End Date Yaya Dobbins MD [address] [place] [address] PCP - General Internal Medicine 09/05/24 documented as of this encounter
--- OUTSIDE RECORDS SUMMARY | 2024-11-04 16:06 | XMS_ITS | Encounter Summary ---
Author Organization [facility] Address [address] [place] [address] Care Team Providers Care Multiple Coil Winder Name Role Phone Yaya Dobbins MD Primary Care Provider [phone] Encounter Details Date Type Department Care Team (Late st Contact Info) Description 09/05/2024 Lab Requisition [facility] - Main Lab [address] [facility] [place] [address] Yaya Dobbins MD [address] [place] [address] Hyperlipidemia, unspecified; Hypothyroidism, unspecified Social [...] LAB CHEMISTRY METHOD 09/05/2024 10:48 AM EDT [facility] Potassium 4.1 3.5 - 5.5 mmol/L LAB CHEMISTRY METHOD 09/05/2024 10:48 AM EDT [facility] Chloride 109 96 - 110 [...] LAB CHEMISTRY METHOD 09/05/2024 10:48 AM EDT [facility] Total Bilirubin 0.9 0.0 - 1.4 mg/dL LAB CHEMISTRY METHOD 09/05/2024 10:48 AM [facility] LAB Blood Venous blood specimen / Unknown Venipuncture / Unknown 09/05/2024 6:49 AM EDT 09/05/2024 9:23 AM EDT us Yaya Dobbins MD LAB BLOOD ORDERABLES Final Resu lt [facility] [address] [place] [address], [place] [phone] * (ABNORMAL) Complete blood count (09/05/2024 6:49 [...] LAB HEMETOLOGY METHOD 09/05/2024 10:27 AM EDT [facility] RDW 13.0 11.0 - 15.0 % LAB HEMETOLOGY METHOD 09/05/2024 10:27 AM EDT [facility] Platelets 194 130 - 400 K/mcL LAB HEMETOLOGY METHOD 09/05/2024 10:27 AM EDT [facility] MPV 11.2(H) 7.0 - 11.0 FL LAB HEMETOLOGY METHOD 09/05/2024 10:27 AM EDT [facility] NRBC 0.0 <1.0 % LAB HEMETOLOGY METHOD 09/05/2024 10:27 AM EDT [facility] NRBC Absolute 0.00 <0.10 K/mcL LAB HEMETOLOGY METHOD 09/05/2024 10:27 AM EDT [facility] Blood Venous blood specimen / Unknown Venipuncture / Unknown 09/05/2024 6:49 AM EDT 09/05/2024 9:23 AM EDT us Yaya Dobbins MD LAB BLOOD ORDERABLES Final Resu lt [facility] [address] [place] [address], documented in this encounter Visit Diagnoses Diagnosis Hyperlipidemia, unspecified Hypothyroidism, unspecified documented in this encounter Care Teams Multiple Coil Winder Relationship Specialty Start Date End Date Yaya Dobbins MD [address] [place] [address] PCP - General Internal Medicine 09/05/24 documented as of this encounter
== END 2024-11-04 14:55 | disposition home or self-care (01) ==
LOC: HO.HMCSH 13:55
PROVIDERS: PCP Physician Assistant Medical; Visit Provider Physician Assistant Medical
DX: R60.0 Localized edema (principal); I10 Essential (primary) hypertension; L03.116 Cellulitis of left lower limb; R05.9 Cough, unspecified; M47.816 Spondylosis without myelopathy or radiculopathy, lumbar region; M25.559 Pain in unspecified hip; N20.0 Calculus of kidney

== ENCOUNTER → 2024-11-04 15:31 | Outpatient (BNV) | payer MEDICARE, SELFPAY | PROVIDERS: PCP Physician Assistant Medical; Visit Provider Radiology Diagnostic Radiology | DX: R05.9 Cough, unspecified (principal) | CPT/HCPCS: 71046 ==

== ENCOUNTER 2024-11-09 13:41 | Outpatient (REF) | payer MEDICARE, SELFPAY ==
--- NOTE | ~2024-11-09 | XR_ITS ---
EXAMINATION: XR CHEST CLINICAL INFORMATION: Z00.00 - Encounter for general adult medical examination without abnorma... COMPARISON: 11/04/2024 TECHNIQUE: 2 views of the chest were obtained. FINDINGS: Lungs are mildly hyperinflated with chronic increased interstitial markings. There are no new opacities. Heart size is within normal limits. There is no pleural effusion. Flowing osteophytes versus syndesmophytes are present in the anterior thoracic spine. XR/XR chest 2V IMPRESSION: No acute disease. 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 Electronically signed by: Ritesh Ramirez MD 11/09/2024 02:37 PM EDT
--- OUTSIDE RECORDS SUMMARY | 2024-11-09 15:55 | XMS_ITS | Encounter Summary ---
Author Organization [facility] Address [address] [place] [address] Care Team Providers Care Meat Carrier Name Role Phone Yaya Dobbins MD Primary Care Provider [phone] Encounter Details Date Type Department Care Team (Late st Contact Info) Description 09/11/2024 Lab Requisition [facility] - Main Lab 299 [facility] [place] [address] Yaya Dobbins MD [address] [place] [address] Hyperlipidemia, unspecified Social History Tobacco [...] LAB CHEMISTRY METHOD 09/14/2024 1:49 PM EDT [facility] Potassium 4.0 3.5 - 5.5 mmol/L LAB CHEMISTRY METHOD 09/14/2024 1:49 PM EDT [facility] Chloride 112(H) 96 - 110 mmol/L LAB CHEMISTRY METHOD 09/14/2024 1:49 PM [facility] CO2 26 21 - 32 mmol/L LAB CHEMISTRY METHOD 09/14/2024 1:49 PM [facility] Anion Gap 7 3 - 11 LAB CHEMISTRY METHOD 09/14/2024 1:49 PM [facility] Glucose 72 70 - 100 mg/dL LAB CHEMISTRY METHOD 09/14/2024 1:49 PM [facility] BUN 12 5 - 25 mg/dL LAB CHEMISTRY METHOD 09/14/2024 1:49 PM [facility] Creatinine 0.64 0.50 - 1.10 mg/dL LAB CHEMISTRY METHOD 09/14/2024 1:49 PM [facility] eGFR 91 >=60 mL/min/1. 73m2 LAB CHEMISTRY METHOD 09/14/2024 1:49 PM [facility] Comment:Calculation based on the Chronic Kidney Disease Epidemiology Collaboration (CKD-EPI) equation refit without adjustment for race. BUN/Creatinine Ratio 18.8 LAB CHEMISTRY METHOD 09/14/2024 1:49 PM [facility] Calcium 9.0 8.5 - 10.5 mg/dL LAB CHEMISTRY METHOD 09/14/2024 1:49 PM [facility] AST (SGOT) 43(H) 10 - 42 unit/L LAB CHEMISTRY METHOD 09/14/2024 1:49 PM [facility] ALT (SGPT) 31 10 - 60 unit/L LAB CHEMISTRY METHOD 09/14/2024 1:49 PM [facility] Alkaline Phosphatase 125(H) 42 - 121 unit/L LAB CHEMISTRY METHOD 09/14/2024 1:49 PM [facility] Total Protein 5.3(L) 6.0 - 8.0 g/dL LAB CHEMISTRY METHOD 09/14/2024 1:49 PM [facility] Albumin 2.9(L) 3.2 - 5.0 g/dL LAB CHEMISTRY METHOD 09/14/2024 1:49 PM EDT [facility] Total Bilirubin 0.5 0.0 - 1.4 mg/dL LAB CHEMISTRY METHOD 09/14/2024 1:49 PM [facility] Blood Venous blood specimen / Unknown Venipuncture / Unknown 09/14/2024 4:53 AM EDT 09/14/2024 10:55 AM EDT us Yaya Dobbins MD LAB BLOOD ORDERABLES Final Resu lt [facility] [address] [place] [address], * (ABNORMAL) Complete blood count (09/14/2024 4:53 AM EDT) WBC 7.1 4.8 - 10.8 K/mcL LAB HEMETOLOGY METHOD 09/14/2024 11:19 AM [facility] RBC 3.20(L) 3.80 - 4.80 M/mcL LAB HEMETOLOGY METHOD 09/14/2024 11:19 AM [facility] Hemoglobin 10.0(L) 11.5 - 16.0 g/dL LAB HEMETOLOGY METHOD 09/14/2024 11:19 AM [facility] Hematocrit 32.0(L) 35.0 - 47.0 % LAB HEMETOLOGY METHOD 09/14/2024 11:19 AM [facility] MCV 100.6(H) 79.0 - 98.0 FL LAB HEMETOLOGY METHOD 09/14/2024 11:19 AM [facility] MCH 31.4 27.0 - 32.0 pcg LAB HEMETOLOGY METHOD 09/14/2024 11:19 AM [facility] MCHC 31.3(L) 32.0 - 37.0 g/dL LAB HEMETOLOGY METHOD 09/14/2024 11:19 AM EDT [facility] RDW 14.9 11.0 - 15.0 % LAB HEMETOLOGY METHOD 09/14/2024 11:19 AM EDT [facility] Platelets 321 130 - 400 K/mcL LAB HEMETOLOGY METHOD 09/14/2024 11:19 AM EDT [facility] MPV 10.2 7.0 - 11.0 FL LAB HEMETOLOGY METHOD 09/14/2024 11:19 AM EDT [facility] NRBC 0.0 <1.0 % LAB HEMETOLOGY METHOD 09/14/2024 11:19 AM EDT [facility] NRBC Absolute 0.00 <0.10 K/mcL LAB HEMETOLOGY METHOD 09/14/2024 11:19 AM EDT [facility] Blood Venous blood specimen / Unknown Venipuncture / Unknown 09/14/2024 4:53 AM EDT 09/14/2024 10:54 AM EDT Yaya Dobbins MD LAB BLOOD ORDERABLES Final Resu lt [facility] [address] [place] [address], documented in this encounter Visit Diagnoses Diagnosis Hyperlipidemia, unspecified documented in this encounter Care Teams Meat Carrier Relationship Specialty Start Date End Date Yaya Dobbins MD [address] [place] [address] PCP - General Internal Medicine 09/05/24 documented as of this encounter
--- OUTSIDE RECORDS SUMMARY | 2024-11-09 15:55 | XMS_ITS | Clinical Summary ---
Author Organization [address] Address [address] [place] [address] Phone Care Team Providers Care Vp Outcomes Name Role Phone Yaya Dobbins MD Primary Care Provider [phone] Encounters Date Type Department Care Team Description 09/19/2024 Lab Requisition [facility] Lab [address] [place] [address] Yaya Dobbins MD Hyperlipidemia, unspecified 09/16/2024 Lab Requisition [facility] Lab [address] [place] [address] Yaya Dobbins MD Hyperlipidemia, unspecified 09/11/2024 Lab Requisition [facility] Lab [address] [place] [address] Yaya Dobbins MD Hyperlipidemia, unspecified 09/09/2024 Lab Requisition [facility] Lab [address] [place] [address] Yaya Dobbins MD Hyperlipidemia, unspecified 09/07/2024 Lab Requisition [facility] Lab [address] [place] [address] Yaya Dobbins MD Hypothyroidism, unspecified; Hyperlipidemia, unspecified 09/05/2024 Lab Requisition [facility] Lab [address] [place] [address] Yaya Dobbins MD Hyperlipidemia, unspecified; Hypothyroidism, unspecified [...] of6 resultswithin the time period is included. [facility] WBC 5.6 4.8 - 10.8 K/[facility] LAB HEMETOLOGY METHOD 09/21/2024 10:22 AM EDT [facility] RBC 3.10(L) 3.80 - 4.80 M/mcL LAB HEMETOLOGY METHOD 09/21/2024 10:[address] [facility] Hemoglobin 9.8(L) 11.5 - 16.0 g/dL LAB HEMETOLOGY METHOD 09/21/2024 10:[address] [facility] Hematocrit 31.4(L) 35.0 - 47.0 % LAB HEMETOLOGY METHOD 09/21/2024 10:[address] [facility] MCV 101.0(H) 79.0 - 98.0 FL LAB HEMETOLOGY METHOD 09/21/2024 10:[address] [facility] MCH 31.5 27.0 - 32.0 pcg LAB HEMETOLOGY METHOD 09/21/2024 10:[address] [facility] MCHC 31.2(L) 32.0 - 37.0 g/dL LAB HEMETOLOGY METHOD 09/21/2024 10:[address] [facility] RDW 15.7(H) 11.0 - 15.0 % LAB HEMETOLOGY METHOD 09/21/2024 10:[address] [facility] Platelets 273 130 - 400 K/mcL LAB HEMETOLOGY METHOD 09/21/2024 10:[address] [facility] MPV 10.6 7.0 - 11.0 FL LAB HEMETOLOGY METHOD 09/21/2024 10:[address] [facility] NRBC 0.0 <1.0 % LAB HEMETOLOGY METHOD 09/21/2024 10:[address] [facility] NRBC Absolute 0.00 <0.10 K/mcL LAB HEMETOLOGY METHOD 09/21/2024 10:[address] [facility] Blood Venous blood specimen / Unknown Venipuncture / Unknown 09/21/2024 4:46 AM EDT 09/21/2024 10:02 AM EDT us Yaya Dobbins MD LAB BLOOD ORDERABLES Final Resu lt [facility] [address] [place] [address], [place] [phone] * (ABNORMAL) Comprehensive metabolic panel (09/21/2024 4:46 AM EDT) Only the most recent of4 resultswithin the time period is included. Sodium 144 133 - 145 mmol/L LAB CHEMISTRY METHOD 09/21/2024 11:[address] [facility] Potassium 4.0 3.5 - 5.5 mmol/L LAB CHEMISTRY METHOD 09/21/2024 11:[address] [facility] Chloride 114(H) 96 - 110 mmol/L LAB CHEMISTRY METHOD 09/21/2024 11:[address] [facility] CO2 22 21 - 32 mmol/L LAB CHEMISTRY METHOD 09/21/2024 11:[address] [facility] Anion Gap 8 3 - 11 LAB CHEMISTRY METHOD 09/21/2024 11:[address] [facility] Glucose 82 70 - 100 mg/dL LAB CHEMISTRY METHOD 09/21/2024 11:[address] [facility] BUN 13 5 - 25 mg/dL LAB CHEMISTRY METHOD 09/21/2024 11:[address] [facility] Creatinine 0.61 0.50 - 1.10 mg/dL LAB CHEMISTRY METHOD 09/21/2024 11:[address] [facility] eGFR 92 >=60 mL/min/1. 73m2 LAB CHEMISTRY METHOD 09/21/2024 11:[address] [facility] Comment:Calculation based on the Chronic Kidney Disease Epidemiology Collaboration (CKD-EPI) equation refit without adjustment for race. BUN/Creatinine Ratio 21.3 LAB CHEMISTRY METHOD 09/21/2024 11:[address] [facility] Calcium 9.0 8.5 - 10.5 mg/dL LAB CHEMISTRY METHOD 09/21/2024 11:[address] [facility] AST (SGOT) 40 10 - 42 unit/L LAB CHEMISTRY METHOD 09/21/2024 11:[address] [facility] ALT (SGPT) 31 10 - 60 unit/L LAB CHEMISTRY METHOD 09/21/2024 11:[address] [facility] Alkaline Phosphatase 140(H) 42 - 121 unit/L LAB CHEMISTRY METHOD 09/21/2024 11:[address] [facility] Total Protein 5.3(L) 6.0 - 8.0 g/dL LAB CHEMISTRY METHOD 09/21/2024 11:[address] [facility] Albumin 3.1(L) 3.2 - 5.0 g/dL LAB CHEMISTRY METHOD 09/21/2024 11:[address] [facility] Total Bilirubin 0.5 0.0 - 1.4 mg/dL LAB CHEMISTRY METHOD 09/21/2024 11:[address] [facility] Blood Venous blood specimen / Unknown Venipuncture / Unknown 09/21/2024 4:46 AM EDT 09/21/2024 11:05 AM EDT us Yaya Dobbins MD LAB BLOOD ORDERABLES Final Resu lt [facility] [address] [place] [address], * (ABNORMAL) Basic metabolic panel (09/17/2024 4:51 AM EDT) Only the most recent of2 resultswithin the time period is included. Sodium 145 133 - 145 mmol/L LAB CHEMISTRY METHOD 09/17/2024 9:[address] [facility] Potassium 4.1 3.5 - 5.5 mmol/L LAB CHEMISTRY METHOD 09/17/2024 9:[address] [facility] Chloride 114(H) 96 - 110 mmol/L LAB CHEMISTRY METHOD 09/17/2024 9:[address] [facility] CO2 26 21 - 32 mmol/L LAB CHEMISTRY METHOD 09/17/2024 9:[address] [facility] Anion Gap 5 3 - 11 LAB CHEMISTRY METHOD 09/17/2024 9:[address] [facility] Glucose 77 70 - 100 mg/dL LAB CHEMISTRY METHOD 09/17/2024 9:[address] [facility] BUN 11 5 - 25 mg/dL LAB CHEMISTRY METHOD 09/17/2024 9:[address] [facility] Creatinine 0.65 0.50 - 1.10 mg/dL LAB CHEMISTRY METHOD 09/17/2024 9:[address] [facility] eGFR 90 >=60 mL/min/1. 73m2 LAB CHEMISTRY METHOD 09/17/2024 9:[address] [facility] Comment:Calculation based on the Chronic Kidney Disease Epidemiology Collaboration (CKD-EPI) equation refit without adjustment for race. BUN/Creatinine Ratio 16.9 LAB CHEMISTRY METHOD 09/17/2024 9:[address] [facility] Calcium 9.2 8.5 - 10.5 mg/dL LAB CHEMISTRY METHOD 09/17/2024 9:[address] [facility] Blood Venous blood specimen / Unknown Venipuncture / Unknown 09/17/2024 4:51 AM EDT 09/17/2024 7:42 AM EDT us Yaya Dobbins MD LAB BLOOD ORDERABLES Final Resu lt [facility] [address] [place] [address], [place] [phone] from Last 3 Months Insurance [facility] Care Teams Vp Outcomes Relationship Specialty Start Date End Date Yaya Dobbins MD [address] [place] [id number] PCP - General Internal Medicine 09/05/24
--- OUTSIDE RECORDS SUMMARY | 2024-11-09 15:55 | XMS_ITS | Encounter Summary ---
Author Organization [facility] Address [address] [place] [address] Care Team Providers Care Mental Health Worker Name Role Phone Yaya Dobbins MD Primary Care Provider [phone] Encounter Details Date Type Department Care Team (Late st Contact Info) Description 09/16/2024 Lab Requisition [facility] - Main Lab 299 [facility] [email or web address] [address] Yaya Dobbins MD [address] [place] [address] Hyperlipidemia, unspecified Social History Tobacco [...] LAB CHEMISTRY METHOD 09/17/2024 9:16 AM EDT [facility] Potassium 4.1 3.5 - 5.5 mmol/L LAB CHEMISTRY METHOD 09/17/2024 9:16 AM EDT [facility] Chloride 114(H) 96 - [...] lt [facility] [address] [place] [address], * (ABNORMAL) Complete blood count (09/17/2024 4:51 AM EDT) WBC 5.9 4.8 - 10.8 K/[facility] LAB HEMETOLOGY METHOD 09/17/2024 8:39 [...] MD LAB BLOOD ORDERABLES Final Resu lt [facility] [address] [place] [address], documented in this encounter Visit Diagnoses Diagnosis Hyperlipidemia, unspecified documented in this encounter Care Teams Mental Health Worker Relationship Specialty Start Date End Date Yaya Dobbins MD [address] [place] [address] PCP - General Internal Medicine 09/05/24 documented as of this encounter
--- OUTSIDE RECORDS SUMMARY | 2024-11-09 15:55 | XMS_ITS | Encounter Summary ---
Author Organization [facility] Address [address] [place] [address] Care Team Providers Care Pneumatic Drum Sander Name Role Phone Yaya Dobbins MD Primary Care Provider [phone] Encounter Details Date Type Department Care Team (Late st Contact Info) Description 09/19/2024 Lab Requisition [facility] - Main Lab [address] [facility] [place] [address] Yaya Dobbins MD [address] [place] [address] Hyperlipidemia, unspecified Social History [...] LAB CHEMISTRY METHOD 09/21/2024 11:20 AM T [facility] Potassium 4.0 3.5 - 5.5 mmol/L LAB CHEMISTRY METHOD 09/21/2024 11:20 AM EDT [facility] Chloride 114(H) 96 - 110 mmol/L LAB CHEMISTRY METHOD 09/21/2024 11:20 AM [facility] CO2 22 21 - 32 mmol/L LAB CHEMISTRY METHOD 09/21/2024 11:20 AM [facility] Anion Gap 8 3 - 11 LAB CHEMISTRY METHOD 09/21/2024 11:20 AM [facility] Glucose 82 70 - 100 mg/dL LAB CHEMISTRY METHOD 09/21/2024 11:20 AM [facility] BUN 13 5 - 25 mg/dL LAB CHEMISTRY METHOD 09/21/2024 11:20 AM [facility] Creatinine 0.61 0.50 - 1.10 mg/dL LAB CHEMISTRY METHOD 09/21/2024 11:20 AM [facility] eGFR 92 >=60 mL/min/1. 73m2 LAB CHEMISTRY METHOD 09/21/2024 11:20 AM [facility] Comment:Calculation based on the Chronic Kidney Disease Epidemiology Collaboration (CKD-EPI) equation refit without adjustment for race. BUN/Creatinine Ratio 21.3 LAB CHEMISTRY METHOD 09/21/2024 11:20 AM [facility] Calcium 9.0 8.5 - 10.5 mg/dL LAB CHEMISTRY METHOD 09/21/2024 11:20 AM [facility] AST (SGOT) 40 10 - 42 unit/L LAB CHEMISTRY METHOD 09/21/2024 11:20 AM [facility] ALT (SGPT) 31 10 - 60 unit/L LAB CHEMISTRY METHOD 09/21/2024 11:20 AM [facility] Alkaline Phosphatase 140(H) 42 - 121 unit/L LAB CHEMISTRY METHOD 09/21/2024 11:20 AM [facility] Total Protein 5.3(L) 6.0 - 8.0 g/dL LAB CHEMISTRY METHOD 09/21/2024 11:20 AM [facility] Albumin 3.1(L) 3.2 - 5.0 g/dL LAB CHEMISTRY METHOD 09/21/2024 11:20 AM [facility] Total Bilirubin 0.5 0.0 - 1.4 mg/dL LAB CHEMISTRY METHOD 09/21/2024 11:20 AM [facility] Blood Venous blood specimen / Unknown Venipuncture / Unknown 09/21/2024 4:46 AM EDT 09/21/2024 11:05 AM EDT us Yaya Dobbins MD LAB BLOOD ORDERABLES Final Resu lt [facility] [address] [place] [address], * (ABNORMAL) Complete blood count (09/21/2024 4:46 AM EDT) WBC 5.6 4.8 - 10.8 K/mcL LAB HEMETOLOGY METHOD 09/21/2024 10:22 AM [facility] RBC 3.10(L) 3.80 - 4.80 M/mcL LAB HEMETOLOGY METHOD 09/21/2024 10:22 AM [facility] Hemoglobin 9.8(L) 11.5 - 16.0 g/dL LAB HEMETOLOGY METHOD 09/21/2024 10:22 AM [facility] Hematocrit 31.4(L) 35.0 - 47.0 % LAB HEMETOLOGY METHOD 09/21/2024 10:22 AM [facility] MCV 101.0(H) 79.0 - 98.0 FL LAB HEMETOLOGY METHOD 09/21/2024 10:22 AM [facility] MCH 31.5 27.0 - 32.0 pcg LAB HEMETOLOGY METHOD 09/21/2024 10:22 AM [facility] MCHC 31.2(L) 32.0 - 37.0 g/dL LAB HEMETOLOGY METHOD 09/21/2024 10:22 AM EDT [facility] RDW 15.7(H) 11.0 - 15.0 % LAB HEMETOLOGY METHOD 09/21/2024 10:22 AM EDT [facility] Platelets 273 130 - 400 K/mcL LAB HEMETOLOGY METHOD 09/21/2024 10:22 AM EDT [facility] MPV 10.6 7.0 - 11.0 FL LAB HEMETOLOGY METHOD 09/21/2024 10:22 AM EDT [facility] NRBC 0.0 <1.0 % LAB HEMETOLOGY METHOD 09/21/2024 10:22 AM EDT [facility] NRBC Absolute 0.00 <0.10 K/mcL LAB HEMETOLOGY METHOD 09/21/2024 10:22 AM EDT [facility] Blood Venous blood specimen / Unknown Venipuncture / Unknown 09/21/2024 4:46 AM EDT 09/21/2024 10:02 AM EDT Yaya Dobbins MD LAB BLOOD ORDERABLES Final Resu lt [facility] [address] [place] [address], documented in this encounter Visit Diagnoses Diagnosis Hyperlipidemia, unspecified documented in this encounter Care Teams Pneumatic Drum Sander Relationship Specialty Start Date End Date Yaya Dobbins MD [address] [place] [address] PCP - General Internal Medicine 09/05/24 documented as of this encounter
--- OUTSIDE RECORDS SUMMARY | 2024-11-09 15:56 | XMS_ITS | Clinical Summary ---
Author Organization [facility] Address [address] [place], [place] [id number] Phone Care Team Providers Care Synthetic Filament Extruder Name Role Phone Rodolfo Stein MD Primary Care Provider [phone] Allergies Active Allergy Reactions Criticality Noted Date [...] you interested in more education? Not on mxaine e 06/29/2022 Are you concerned about learning? [...] topic Medical Devices Not on file Insurance [facility] [address] [place], [place] [address]O [facility] [address] [place] [address] [place] [address]O [facility] HMO [facility] H[facility] Care Teams Synthetic Filament Extruder Relationship Specialty Start Date End Date Rodolfo Stein MD [address] [place] [id number] PCP - General Internal Medicine 01/22/14 Additional Source Comments The information contained in this document represents components of the legal health record. It is not the complete legal health record.[facility]
--- OUTSIDE RECORDS SUMMARY | 2024-11-09 15:56 | XMS_ITS | Encounter Summary ---
Author Organization [facility] Address [address] [place] [address] Care Team Providers Care Licensed Occupational Therapist Name Role Phone Yaya Dobbins MD Primary Care Provider [phone] Encounter Details Date Type Department Care Team (Late st Contact Info) Description 09/07/2024 Lab Requisition [facility] - Main Lab 299 [facility] [place] [address] Yaya Dobbins MD [address] [place] [address] Hypothyroidism, unspecified; Hyperlipidemia, unspecified Social [...] LAB CHEMISTRY METHOD 09/07/2024 12:51 PM EDT [facility] Potassium 4.0 3.5 - 5.5 mmol/L LAB CHEMISTRY METHOD 09/07/2024 12:51 PM EDT [facility] Chloride 111(H) 96 - 110 mmol/L LAB CHEMISTRY METHOD 09/07/2024 12:51 PM [facility] CO2 26 21 - 32 mmol/L LAB CHEMISTRY METHOD 09/07/2024 12:51 PM [facility] Anion Gap 7 3 - 11 LAB CHEMISTRY METHOD 09/07/2024 12:51 PM [facility] Glucose 80 70 - 100 mg/dL LAB CHEMISTRY METHOD 09/07/2024 12:51 PM [facility] BUN 10 5 - 25 mg/dL LAB CHEMISTRY METHOD 09/07/2024 12:51 PM [facility] Creatinine 0.60 0.50 - 1.10 mg/dL LAB CHEMISTRY METHOD 09/07/2024 12:51 PM [facility] LAB eGFR 92 >=60 mL/min/1. 73m2 LAB CHEMISTRY METHOD 09/07/2024 12:51 PM [facility] Comment:Calculation based on the Chronic Kidney Disease Epidemiology Collaboration (CKD-EPI) equation refit without adjustment for race. BUN/Creatinine Ratio 16.7 LAB CHEMISTRY METHOD 09/07/2024 12:51 PM [facility] Calcium 8.6 8.5 - 10.5 mg/dL LAB CHEMISTRY METHOD 09/07/2024 12:51 PM [facility] AST (SGOT) 48(H) 10 - 42 unit/L LAB CHEMISTRY METHOD 09/07/2024 12:51 PM [facility] ALT (SGPT) 32 10 - 60 unit/L LAB CHEMISTRY METHOD 09/07/2024 12:51 PM [facility] Alkaline Phosphatase 106 42 - 121 unit/L LAB CHEMISTRY METHOD 09/07/2024 12:51 PM [facility] Total Protein 5.4(L) 6.0 - 8.0 g/dL LAB CHEMISTRY METHOD 09/07/2024 12:51 PM [facility] Albumin 2.9(L) 3.2 - 5.0 g/dL LAB CHEMISTRY METHOD 09/07/2024 12:51 PM EDT [facility] Total Bilirubin 0.9 0.0 - 1.4 mg/dL LAB CHEMISTRY METHOD 09/07/2024 12:51 PM EDT [facility] Blood Venous blood specimen / Unknown Venipuncture / Unknown 09/07/2024 5:09 AM EDT 09/07/2024 11:28 AM EDT us Yaya Dobbins MD LAB BLOOD ORDERABLES Final Resu lt [facility] [address] [place] [address], [place] [phone] * (ABNORMAL) Complete blood count (09/07/2024 5:09 AM EDT) WBC 8.2 4.8 - 10.8 K/mcL LAB HEMETOLOGY METHOD 09/07/2024 1:09 PM EDT [facility] RBC 3.10(L) 3.80 - 4.80 M/mcL LAB [facility]EMETOLOGY [facility] Hemoglobin 9.3(L) 11.5 - 16.0 g/dL LAB HEMETOLOGY METHOD 09/07/2024 1:09 PM EDT [facility] Hematocrit 29.6(L) 35.0 - 47.0 % LAB HEMETOLOGY METHOD 09/07/2024 1:09 PM EDT [facility] MCV 97.0 79.0 - 98.0 FL LAB HEMETOLOGY METHOD [facility]/07[facility]24 [facility] MCH 30.5 27.0 - 32.0 pcg LAB HEMETOLOGY METHOD 09/07/2024 1:09 PM EDT [facility] MCHC 31.4(L) 32.0 - 37.0 g/dL LAB HEMETOLOGY METHOD 09/07/2024 1:09 PM EDT [facility] RDW 13.6 11.0 - 15.0 % LAB HEMETOLOGY METHOD 09/07/2024 1:09 PM EDT [facility] Platelets 229 130 - 400 K/mcL LAB HEMETOLOGY METHOD 09/07/2024 1:09 PM EDT [facility] MPV 10.7 7.0 - 11.0 FL LAB HEMETOLOGY METHOD 09/07/2024 1:09 PM EDT [facility] NRBC 0.0 <1.0 % LAB HEMETOLOGY METHOD 09/07/2024 1:09 PM EDT [facility] NRBC Absolute 0.00 <0.10 K/mcL LAB HEMETOLOGY METHOD 09/07/2024 1:09 PM EDT [facility] Blood Venous blood specimen / Unknown Venipuncture / Unknown 09/07/2024 5:09 AM EDT 09/07/2024 11:28 AM EDT Yaya Dobbins MD LAB BLOOD ORDERABLES Final Resu lt [facility] [address] [place] [address], [place] [phone] documented in this encounter Visit Diagnoses Diagnosis Hypothyroidism, unspecified Hyperlipidemia, unspecified documented in this encounter Care Teams Licensed Occupational Therapist Relationship Specialty Start Date End Date Yaya Dobbins MD [address] [place] [address] PCP - General Internal Medicine 09/05/24 documented as of this encounter
--- OUTSIDE RECORDS SUMMARY | 2024-11-09 15:56 | XMS_ITS | Encounter Summary ---
Author Organization [facility] Address [address] [place] [address] Care Team Providers Care Oil Scout Name Role Phone Yaya Dobbins MD Primary Care Provider Encounter Details Date Type Department Care Team (Late st Contact Info) Description 09/05/2024 Lab Requisition [facility] - Main Lab [address] [facility] [place] [address] Yaya Dobbins MD [address] [place] [address] Hyperlipidemia, unspecified; Hypothyroidism, unspecified Social [...] LAB CHEMISTRY METHOD 09/05/2024 10:48 AM EDT [facility] Potassium 4.1 3.5 - 5.5 mmol/L LAB CHEMISTRY METHOD 09/05/2024 10:48 AM EDT [facility] Chloride 109 96 - 110 mmol/L LAB CHEMISTRY METHOD 09/05/2024 10:48 AM [facility] CO2 28 21 - 32 mmol/L LAB CHEMISTRY METHOD 09/05/2024 10:48 AM [facility] Anion Gap 5 3 - 11 LAB CHEMISTRY METHOD 09/05/2024 10:48 AM [facility] Glucose 85 70 - 100 mg/dL LAB CHEMISTRY METHOD 09/05/2024 10:48 AM [facility] BUN 11 5 - 25 mg/dL LAB CHEMISTRY METHOD 09/05/2024 10:48 AM [facility] Creatinine 0.60 0.50 - 1.10 mg/dL LAB CHEMISTRY METHOD 09/05/2024 10:48 AM [facility] eGFR 92 >=60 mL/min/1. 73m2 LAB CHEMISTRY METHOD 09/05/2024 10:48 AM [facility] Comment:Calculation based on the Chronic Kidney Disease Epidemiology Collaboration (CKD-EPI) equation refit without adjustment for race. BUN/Creatinine Ratio 18.3 LAB CHEMISTRY METHOD 09/05/2024 10:48 AM [facility] Calcium 8.8 8.5 - 10.5 mg/dL LAB CHEMISTRY METHOD 09/05/2024 10:48 AM [facility] AST (SGOT) 55(H) 10 - 42 unit/L LAB CHEMISTRY METHOD 09/05/2024 10:48 AM [facility] ALT (SGPT) 30 10 - 60 unit/L LAB CHEMISTRY METHOD 09/05/2024 10:48 AM [facility] Alkaline Phosphatase 84 42 - 121 unit/L LAB CHEMISTRY METHOD 09/05/2024 10:48 AM [facility] Total Protein 5.3(L) 6.0 - 8.0 g/dL LAB CHEMISTRY METHOD 09/05/2024 10:48 AM [facility] Albumin 2.8(L) 3.2 - 5.0 g/dL LAB CHEMISTRY METHOD 09/05/2024 10:48 AM EDT [facility] Total Bilirubin 0.9 0.0 - 1.4 mg/dL LAB CHEMISTRY METHOD 09/05/2024 10:48 AM [facility] Blood Venous blood specimen / Unknown Venipuncture / Unknown 09/05/2024 6:49 AM EDT 09/05/2024 9:23 AM EDT us Yaya Dobbins MD LAB BLOOD ORDERABLES Final Resu lt [facility] [address] [place] [address], [place] [phone] * (ABNORMAL) Complete blood count (09/05/2024 6:49 AM EDT) WBC 8.4 4.8 - 10.8 K/mcL LAB HEMETOLOGY METHOD 09/05/2024 10:27 AM [facility] RBC 3.10(L) 3.80 - 4.80 M/mcL LAB HEMETOLOGY METHOD 09/05/2024 10:27 AM [facility] Hemoglobin 9.4(L) 11.5 - 16.0 g/dL LAB HEMETOLOGY METHOD 09/05/2024 10:27 AM [facility] Hematocrit 28.8(L) 35.0 - 47.0 % LAB HEMETOLOGY METHOD 09/05/2024 10:27 AM [facility] MCV 92.9 79.0 - 98.0 FL LAB HEMETOLOGY METHOD 09/05/2024 10:27 AM [facility] MCH 30.3 27.0 - 32.0 pcg LAB HEMETOLOGY METHOD 09/05/2024 10:27 AM [facility] MCHC 32.6 32.0 - 37.0 g/dL LAB HEMETOLOGY METHOD 09/05/2024 10:27 AM EDT [facility] RDW 13.0 11.0 - 15.0 % LAB HEMETOLOGY METHOD 09/05/2024 10:27 AM EDT [facility] Platelets 194 130 - 400 K/mcL LAB HEMETOLOGY METHOD 09/05/2024 10:27 AM EDT [facility] MPV 11.2(H) 7.0 - 11.0 FL LAB HEMETOLOGY METHOD 09/05/2024 10:27 AM EDT [facility] NRBC 0.0 <1.0 % LAB HEMETOLOGY METHOD 09/05/2024 10:27 AM EDT [facility] NRBC Absolute 0.00 <0.10 K/mcL LAB HEMETOLOGY METHOD 09/05/2024 10:27 AM EDT [facility] Blood Venous blood specimen / Unknown Venipuncture / Unknown 09/05/2024 6:49 AM EDT 09/05/2024 9:23 AM EDT us Yaya Dobbins MD LAB BLOOD ORDERABLES Final Resu lt [facility] [address] [place] [address], documented in this encounter Visit Diagnoses Diagnosis Hyperlipidemia, unspecified Hypothyroidism, unspecified documented in this encounter Care Teams Oil Scout Relationship Specialty Start Date End Date Yaya Dobbins MD [address] [place] [address] PCP - General Internal Medicine 09/05/24 documented as of this encounter
--- OUTSIDE RECORDS SUMMARY | 2024-11-09 15:56 | XMS_ITS | Encounter Summary ---
Author Organization [facility] Address [address] [place] [address] Care Team Providers Care Senior Cost Accountant Name Role Phone Yaya Dobbins MD Primary Care Provider [phone] Encounter Details Date Type Department Care Team (Late st Contact Info) Description 09/09/[address] [facility] - Main Lab [address] [facility] [place] [address] Yaya Dobbins MD [address] [place] [address] Hyperlipidemia, unspecified Social History Tobacco [...] LAB CHEMISTRY METHOD 09/10/2024 9:35 AM EDT [facility] Potassium 4.2 3.5 - 5.5 mmol/L LAB CHEMISTRY METHOD 09/10/2024 9:35 AM EDT [facility] Chloride 113(H) 96 - 110 mmol/L LAB CHEMISTRY METHOD 09/10/2024 9:35 AM [facility] CO2 26 21 - 32 mmol/L LAB CHEMISTRY METHOD 09/10/2024 9:35 AM [facility] Anion Gap 5 3 - 11 LAB CHEMISTRY METHOD 09/10/2024 9:35 AM [facility] Glucose 86 70 - 100 mg/dL LAB CHEMISTRY METHOD 09/10/2024 9:35 AM [facility] BUN 10 5 - 25 mg/dL LAB CHEMISTRY METHOD 09/10/2024 9:35 AM [facility] Creatinine 0.51 0.50 - 1.10 mg/dL LAB CHEMISTRY METHOD 09/10/2024 9:35 AM [facility] eGFR 96 >=60 mL/min/1. 73m2 LAB CHEMISTRY METHOD 09/10/2024 9:35 AM [facility] Comment:Calculation based on the Chronic Kidney Disease Epidemiology Collaboration (CKD-EPI) equation refit without adjustment for race. BUN/Creatinine Ratio 19.6 LAB CHEMISTRY METHOD 09/10/2024 9:35 AM [facility] Calcium 9.1 8.5 - 10.5 mg/dL LAB CHEMISTRY METHOD 09/10/2024 9:35 AM [facility] Blood Venous blood specimen / Unknown Venipuncture / Unknown 09/10/2024 4:58 AM EDT 09/10/2024 8:42 AM EDT us Yaya Dobbins MD LAB BLOOD ORDERABLES Final Resu lt [facility] [address] [place] [address], * (ABNORMAL) Complete blood count (09/10/2024 4:58 AM EDT) WBC 7.7 4.8 - 10.8 K/[facility] LAB HEMETOLOGY METHOD 09/10/2024 9:07 AM [facility] RBC 3.00(L) 3.80 - 4.80 M/mcL LAB HEMETOLOGY METHOD 09/10/2024 9:07 AM [facility] Hemoglobin 9.5(L) 11.5 - 16.0 g/dL LAB HEMETOLOGY METHOD 09/10/2024 9:07 AM [facility] Hematocrit 29.7(L) 35.0 - 47.0 % LAB HEMETOLOGY METHOD 09/10/2024 9:07 AM [facility] MCV 98.3(H) 79.0 - 98.0 FL LAB HEMETOLOGY METHOD 09/10/2024 9:07 AM [facility] MCH 31.5 27.0 - 32.0 pcg LAB HEMETOLOGY METHOD 09/10/2024 9:07 AM [facility] MCHC 32.0 32.0 - 37.0 g/dL LAB HEMETOLOGY METHOD 09/10/2024 9:07 AM [facility] RDW 14.1 11.0 - 15.0 % LAB HEMETOLOGY METHOD 09/10/2024 9:07 AM [facility] Platelets 304 130 - 400 K/mcL LAB HEMETOLOGY METHOD 09/10/2024 9:07 AM [facility] MPV 10.5 7.0 - 11.0 FL LAB HEMETOLOGY METHOD 09/10/2024 9:07 AM [facility] NRBC 0.0 <1.0 % LAB HEMETOLOGY METHOD 09/10/2024 9:07 AM [facility] NRBC Absolute 0.00 <0.10 K/mcL LAB HEMETOLOGY METHOD 09/10/2024 9:07 AM [facility] Blood Venous blood specimen / Unknown Venipuncture / Unknown 09/10/2024 4:58 AM EDT 09/10/2024 8:45 AM EDT Yaya Dobbins MD LAB BLOOD ORDERABLES Final Resu lt [facility] [address] [place] [address], documented in this encounter Visit Diagnoses Diagnosis Hyperlipidemia, unspecified documented in this encounter Care Teams Senior Cost Accountant Relationship Specialty Start Date End Date Yaya Dobbins MD [address] [place] [address] PCP - General Internal Medicine 09/05/24 documented as of this encounter
[2024-11-09 16:14] LABS: Hematocrit 38.3 % (37.0-47.0); Hemoglobin 12.4 g/dl (12.0-16.0); Mean Corpuscular HGB Conc 32.4 g/dl (31.0-35.0); Mean Corpuscular Hemoglobin 31.1 pg (27.0-33.0); Mean Corpuscular Volume 96.0 fL (80.0-98.0); NRBC Abs Auto 0.000 X10*3/uL (0.0-0.012); NRBC Pct Auto 0.0 /100WBC (0.0-0.2); Platelet Count 214 X10*3/uL (160-400); Red Blood Count 3.99 X10*6/uL (4.20-5.50); White Blood Count 7.4 X10*3/uL (4.8-10.8)
[2024-11-09 16:24] LABS: B Type Natriuretic Peptide 83 pg/mL (<100)
[2024-11-09 16:41] LABS: Anion Gap 14 (12-20); Blood Urea Nitrogen 12 mg/dL (9-16); Calcium 9.6 mg/dL (8.4-10.2); Carbon Dioxide 27 mmol/L (22-29); Chloride 109 mmol/L (96-108); Estimated Glomerular Filt Rate > 60; Potassium 4.2 mmol/L (3.3-5.1); Sodium 146 mmol/L (135-145)
== END 2024-11-09 13:42 | disposition home or self-care (01) ==
LOC: HO.HMGCX 13:41
PROVIDERS: PCP Physician Assistant Medical; Visit Provider Physician Assistant Medical
DX: Z00.00 Encounter for general adult medical examination without abnormal findings (principal); R60.0 Localized edema
CPT/HCPCS: 36415; 71046; 80048; 83880; 85027

== ENCOUNTER → 2024-11-09 13:45 | Outpatient (BNV) | payer MEDICARE, SELFPAY | PROVIDERS: PCP Physician Assistant Medical; Visit Provider Radiology Diagnostic Radiology | DX: Z00.00 Encounter for general adult medical examination without abnormal findings (principal) | CPT/HCPCS: 71046 ==

== ENCOUNTER 2024-11-21 11:28 | Emergency (ER) | payer MEDICARE, SELFPAY ==
[2024-11-21 11:32] VITALS: BP 157/62; PULSE 84; PULSE 90; RESP 18; TEMP 36.9; O2SAT 97; O2SAT 98; BMI 37.8
[2024-11-21 11:39] VITALS: PULSE 84; RESP 16
--- NOTE | 2024-11-21 11:50 | ED.GENADULT ---
HPI - General Adult General Chief complaint: Animal Bite Stated complaint: MULTI BEE STINGS,LOCAL REACTION PER EMS Time Seen by Provider: 11/21/24 11:42 Source: patient and EMS Mode of arrival: EMS Limitations: no limitations History of Present Illness ED Provider: DR. Arzate HPI narrative: 79-year-old female came in by ambulance for evaluation after she was stung by yellow jacket prior to arrival, no known history of bee or yellow jacket sting allergy, there is no upper respiratory distress, no difficulty swallowing, no fever, no chills. Patient is on doxycycline for 10 days prescribed by her PCP for left lower extremity cellulitis. Related Data Previous Rx's ?Medication ?Instructions ?Recorded ascorbic acid (vitamin C) 1,000 mg 1,000 mg PO DAILY #90 tabs 10/02/24 tablet,extended release carvedilol 3.125 mg tablet 3.125 mg PO BID 90 days #180 tabs 10/02/24 glipizide 5 mg tablet 5 mg PO BID 90 days #180 tabs 10/02/24 latanoprost 0.005 % eye drops 1 drp ophthalmic (eye) DAILY #2.5 10/02/24 mL multivitamin 1 tab PO DAILY #90 tabs 10/02/24 pyridoxine (vitamin B6) 100 mg 100 mg PO DAILY 90 days #90 tabs 10/02/24 tablet simvastatin 20 mg tablet 20 mg PO BEDTIME #90 tabs 10/02/24 levothyroxine 50 mcg tablet 50 mcg PO .COMPLEX #90 tabs 10/21/24 levothyroxine 75 mcg tablet 75 mcg PO .COMPLEX #90 tabs 10/21/24 lorazepam 0.5 mg tablet 0.5 mg PO DAILY PRN anxiety #30 10/22/24 tabs cephalexin 500 mg capsule 500 mg PO Q6H #28 caps 10/29/24 clotrimazole 1 % topical cream 1 appl topical bid 4 weeks #45 10/29/24 grams cyclobenzaprine 10 mg tablet 10 mg PO Q8H PRN muscle spasm #30 11/04/24 tabs doxycycline hyclate 100 mg tablet 100 mg PO BID 10 days #20 tabs 11/04/24 cephalexin 500 mg capsule 500 mg PO Q6H 7 days #28 caps 11/09/24 doxycycline monohydrate 100 mg 100 mg PO BID 7 days #14 tabs 11/09/24 tablet furosemide 40 mg tablet (Lasix) 40 mg PO DAILY 5 days #5 tabs 11/09/24 furosemide 20 mg tablet (Lasix) 20 mg PO DAILY 90 days #90 tabs 11/17/24 Allergies Allergy/AdvReac Type Severity Reaction Status Date / Time oxycodone (OXYCODONE) Allergy Severe N/V Verified 11/21/24 11:37 aspirin (ASPIRIN) Allergy Intermediate GI Verified 11/21/24 11:37 UPSET/BLEEDING latex (LATEX) Allergy Intermediate RASH Verified 11/21/24 11:37 NSAIDS (Non-Steroidal Allergy Intermediate GI Verified 11/21/24 11:37 Anti-Inflamma (NSAIDS UPSET/BLEEDING (NON-STEROIDAL ANTI-INFLAMMA) naproxen (From Aleve) Allergy Diarrhea Verified 11/21/24 11:37 Review of Systems Review of Systems: All other systems are reviewed and are negative Constitutional: Reports as per HPI and Reports no additional constitutional complaints Eyes: Reports as per HPI and Reports no additional eye complaints Reports system reviewed and no additional complaints, except as documented Cardiovascular: Reports as per HPI and Reports no additional cardiovascular complaints Respiratory: Reports as per HPI and Reports no additional respiratory complaints Gastrointestinal: Reports as per HPI and Reports no additional gastrointestinal complaints Genitourinary: Reports no additional female genitourinary complaints Musculoskeletal: Reports no additional musculoskeletal complaints Skin/Breast: Reports system reviewed and no additional complaints, except as docu Psychiatric: Reports no additional psychiatric complaints Endocrine: Reports no additional endocrine complaints Hematologic/Lymphatic: Reports no additional hematologic/lymphatic complaints Allergic/Immunologic: Reports no additional allergic/immunologic complaints Reports system reviewed and no additional complaints, except as documented and Reports Abnormal speech present [facility] Past Medical History Medical History Preventative health care Kidney stone Hip pain Cellulitis of left foot Pedal edema Medication management Hypothyroidism Class 1 obesity with body mass index (BMI) of 32.0 to 32.9 in adult History of mammogram (~07/15/24) Cough Establishing care with new doctor, encounter for Anxiety GI bleed Surgical History S/P total left hip arthroplasty History of colonoscopy (~07/08/19) S/P tooth extraction Family History Family History Father S/P CABG x 4 Stroke Heart attack Heart disease Mother Cancer Paternal Uncle Heart disease Diabetes Paternal Uncle Heart disease Daughter Multiple sclerosis Paternal Grandmother Diabetes Maternal Grandfather Stomach cancer Social History Social History Housing: House Alcohol intake: current Alcohol intake frequency: does not drink Patient Tobacco Use Status: Former Tobacco user Smoked in Last 30 Days: No Use of substances other than those prescribed or required for medical reasons: No Advance Directives: No Advance Directives Information Provided: Yes service: No Current occupational status: retired Cognitive needs: Yes (walker) Hearing needs: No Vision needs: No Physical Exam ED Vital Signs: Vital Signs - 24 hr 11/21/24 11:32 11/21/24 11:39 Temperature 98.5 F Pulse Rate 84 84 Respiratory Rate 18 16 Blood Pressure 157/62 H Pulse Oximetry 97 Oxygen Delivery Method Room Air BMI result Body Mass Index 37.8 Vital signs have been reviewed and appear to be correct. Blood pressure elevated. Heart rate normal. Respiratory rate normal. Temperature normal. Oxygen saturation normal. Appearance: Alert. Oriented X3. No acute distress. Head: Normal external exam. Normocephalic. Atraumatic. No Cisneros signs noted. No raccoon eyes noted Eyes: PERRLA. EOMI. Conjunctiva and sclera normal. Eyelids normal. ENT: TM's Normal. Pharynx normal. Uvula midline. Moist mucous membranes. No trismus noted. No drooling noted. No muffled voice noted. Neck: Normal inspection. Neck supple. FROM. No adenopathy. Thyroid Normal. No meningeal signs. No neck mass noted. CVS: Normal heart rate and rhythm. Heart sound normal. No murmurs noted. Pulses normal throughout. Respiratory: No respiratory distress. Painless inspiration. Breath sounds normal. No wheezes/rales/rhonchi noted. Chest nontender. No accessory muscle usage noted or decreased air movement noted. Abdomen: Soft and nontender. Bowel sounds normal in all 4 quadrants. No distention noted. No organomegaly noted. No visible injury noted. Back: No CVA tenderness. Full range of motion noted. Skin: Multiple bee stings on the neck, upper extremities. Extremities: No lower extremity edema. Extremities exhibit normal range of motion. Extremities nontender. Neuro: Oriented X 3. Cranial nerve exam: II-XII are grossly intact No motor deficit. No sensory deficit. Reflexes normal. Course Reevaluation(s) Reevaluation #1: Yellow jacket sting, no anaphylaxis, patent airway, VSS. To be discharged. Patient is already on doxycycline for left foot cellulitis. Time: 15:05 Medications Administered Discontinued Medications Generic Name Dose Route Start Last Admin Trade Name Freq PRN Reason Stop Dose Admin Acetaminophen 975 mg 11/21/24 11:56 11/21/24 12:09 Acetaminophen 325 Mg Tablet PO 11/21/24 11:57 975 mg ONCE ONE Administration Medical Decision Making Differential Diagnosis Differential Diagnoses: The differential diagnosis associated with the presentation includes (Allergic reaction, anaphylaxis, infected insect bite, airway compromise, cardiac monitoring.) Admission/Observation Consideration of admission/observation: Escalation of care including admission/observation considered Discharge Plan Discharge Clinical Impression: Stung by yellow jacket Patient Disposition: Home, Self-Care Instructions: Insect Bite or Sting (ED) Prescriptions: No Action levothyroxine 75 mcg tablet 75 mcg PO .COMPLEX Qty: 90 3RF Rx Instructions: Patient takes 75 mcg Saturday and Sundays only levothyroxine 50 mcg tablet 50 mcg PO .COMPLEX Qty: 90 3RF Rx Instructions: Patient takes 50 mcg Saturday through Saturday lorazepam 0.5 mg tablet 0.5 mg PO DAILY PRN (Reason: anxiety) Qty: 30 0RF furosemide [Lasix] 40 mg tablet 40 mg PO DAILY 5 Days Qty: 5 0RF doxycycline monohydrate 100 mg tablet 100 mg PO BID 7 Days Qty: 14 0RF cephalexin 500 mg capsule 500 mg PO Q6H 7 Days Qty: 28 0RF furosemide [Lasix] 20 mg tablet 20 mg PO DAILY 90 Days Qty: 90 0RF ascorbic acid (vitamin C) 1,000 mg tablet extended release 1,000 mg PO DAILY Qty: 90 3RF carvedilol 3.125 mg tablet 3.125 mg PO BID 90 Days Qty: 180 3RF glipizide 5 mg tablet 5 mg PO BID 90 Days Qty: 180 3RF latanoprost 0.005 % drops 1 drp ophthalmic (eye) DAILY Qty: 2.5 3RF multivitamin Tablet 1 tab PO DAILY Qty: 90 3RF pyridoxine (vitamin B6) 100 mg tablet 100 mg PO DAILY 90 Days Qty: 90 3RF simvastatin 20 mg tablet 20 mg PO BEDTIME Qty: 90 3RF doxycycline hyclate 100 mg tablet 100 mg PO BID 10 Days Qty: 20 0RF cyclobenzaprine 10 mg tablet 10 mg PO Q8H PRN (Reason: muscle spasm) Qty: 30 0RF clotrimazole 1 % cream 1 appl topical bid 28 Days Qty: 45 0RF cephalexin 500 mg capsule 500 mg PO Q6H Qty: 28 0RF Referrals: Trini Araujo PA-C [Primary Care Provider, Internal Medicine] Print Language: [place]
--- OUTSIDE RECORDS SUMMARY | 2024-11-21 12:03 | XMS_ITS | Clinical Summary ---
Author Organization [address] Address [address] [place] [address] Phone Care Team Providers Care Ground Service Equipment Mechanic Name Role Phone Yaya Dobbins MD Primary Care Provider [phone] Encounters Date Type Department Care Team Description 09/19/2024 Lab Requisition [facility] [address] [place] [address] Yaya Dobbins MD Hyperlipidemia, unspecified 09/16/2024 Lab Requisition [facility] [address] [place] [address] Yaya Dobbins MD Hyperlipidemia, unspecified 09/11/2024 Lab Requisition [facility] [address] [place] [address] Yaya Dobbins MD Hyperlipidemia, unspecified 09/09/2024 Lab Requisition [facility] [address] [place] [address] Yaya Dobbins MD Hyperlipidemia, unspecified 09/07/2024 Lab Requisition [facility] [address] [place] [address] Yaya Dobbins MD Hypothyroidism, unspecified; Hyperlipidemia, unspecified 09/05/2024 Lab Requisition [facility] [address] [place] [address] Yaya Dobbins MD Hyperlipidemia, unspecified; Hypothyroidism, unspecified [...] Patients (1 - 1-dose 75+ series) 2020 Depression Screening 03/04/2024 Cholesterol Screening (Lipid Panel) 09/05/2024 Falls Risk Assessment 09/05/2024 Hepatitis C Screening 09/05/2024 Osteoporosis Screening (Bone Density Screening) 09/05/2024 Social Influencers of Health Screening 09/05/2024 Diabetes: Annual Urine Albumin-Creatinine Ratio (uACR) 2024 Diabetes: Blood Sugar Control Test (HGBA1C) 2024 COVID-19 Vaccine ( season) 2024 Influenza Vaccine (#1) 2024 Diabetes: Annual [...] of6 resultswithin the time period is included. [facility] WBC 5.6 4.8 - 10.8 K/[facility] LAB HEMETOLOGY METHOD 09/21/2024 10:22 AM EDT [facility] LAB RBC 3.10(L) 3.80 - 4.80 M/mcL LAB HEMETOLOGY METHOD 09/21/2024 10:22 AM [facility] LAB Hemoglobin 9.8(L) 11.5 - 16.0 g/dL LAB HEMETOLOGY METHOD 09/21/2024 10:22 AM [facility] LAB Hematocrit 31.4(L) 35.0 - 47.0 % LAB HEMETOLOGY METHOD 09/21/2024 10:22 AM [facility] LAB MCV 101.0(H) 79.0 - 98.0 FL LAB HEMETOLOGY METHOD 09/21/2024 10:22 AM [facility] LAB MCH 31.5 27.0 - 32.0 pcg LAB HEMETOLOGY METHOD 09/21/2024 10:22 AM [facility] LAB MCHC 31.2(L) 32.0 - 37.0 g/dL LAB HEMETOLOGY METHOD 09/21/2024 10:22 AM [facility] LAB RDW 15.7(H) 11.0 - 15.0 % LAB HEMETOLOGY METHOD 09/21/2024 10:22 AM [facility] LAB Platelets 273 130 - 400 K/mcL LAB HEMETOLOGY METHOD 09/21/2024 10:22 AM [facility] LAB MPV 10.6 7.0 - 11.0 FL LAB HEMETOLOGY METHOD 09/21/2024 10:22 AM [facility] LAB NRBC 0.0 <1.0 % LAB HEMETOLOGY METHOD 09/21/2024 10:22 AM [facility] LAB NRBC Absolute 0.00 <0.10 K/mcL LAB HEMETOLOGY METHOD 09/21/2024 10:22 AM [facility] LAB Blood Venous blood specimen / Unknown Venipuncture / Unknown 09/21/2024 4:46 AM EDT 09/21/2024 10:02 AM EDT us Yaya Dobbins MD LAB BLOOD ORDERABLES Final Resu lt [facility] [address] [place] [address], [place] [phone] * (ABNORMAL) Comprehensive metabolic panel (09/21/2024 4:46 AM EDT) Only the most recent of4 resultswithin the time period is included. Sodium 144 133 - 145 mmol/L LAB CHEMISTRY METHOD 09/21/2024 11:20 AM [facility] LAB Potassium 4.0 3.5 - 5.5 mmol/L LAB CHEMISTRY METHOD 09/21/2024 11:20 AM [facility] LAB Chloride 114(H) 96 - 110 mmol/L LAB CHEMISTRY METHOD 09/21/2024 11:20 AM [facility] LAB CO2 22 21 - 32 mmol/L LAB CHEMISTRY METHOD 09/21/2024 11:20 AM [facility] LAB Anion Gap 8 3 - 11 LAB CHEMISTRY METHOD 09/21/2024 11:20 AM [facility] LAB Glucose 82 70 - 100 mg/dL LAB CHEMISTRY METHOD 09/21/2024 11:20 AM [facility] BUN 13 5 - 25 mg/dL LAB CHEMISTRY METHOD 09/21/2024 11:20 AM [facility] Creatinine 0.61 0.50 - 1.10 mg/dL LAB CHEMISTRY METHOD 09/21/2024 11:20 AM [facility] LAB eGFR 92 >=60 mL/min/1. 73m2 LAB CHEMISTRY METHOD 09/21/2024 11:20 AM [facility] LAB Comment:Calculation based on the Chronic Kidney Disease Epidemiology Collaboration (CKD-EPI) equation refit without adjustment for race. BUN/Creatinine Ratio 21.3 LAB CHEMISTRY METHOD 09/21/2024 11:20 AM [facility] LAB Calcium 9.0 8.5 - 10.5 mg/dL LAB CHEMISTRY METHOD 09/21/2024 11:20 AM [facility] LAB AST (SGOT) 40 10 - 42 unit/L LAB CHEMISTRY METHOD 09/21/2024 11:20 AM [facility] LAB ALT (SGPT) 31 10 - 60 unit/L LAB CHEMISTRY METHOD 09/21/2024 11:20 AM [facility] LAB Alkaline Phosphatase 140(H) 42 - 121 unit/L LAB CHEMISTRY METHOD 09/21/2024 11:20 AM [facility] LAB Total Protein 5.3(L) 6.0 - 8.0 g/dL LAB CHEMISTRY METHOD 09/21/2024 11:20 AM [facility] LAB Albumin 3.1(L) 3.2 - 5.0 g/dL LAB CHEMISTRY METHOD 09/21/2024 11:20 AM [facility] LAB Total Bilirubin 0.5 0.0 - 1.4 mg/dL LAB CHEMISTRY METHOD 09/21/2024 11:20 AM [facility] LAB Blood Venous blood specimen / Unknown Venipuncture / Unknown 09/21/2024 4:46 AM EDT 09/21/2024 11:05 AM EDT us Yaya Dobbins MD LAB BLOOD ORDERABLES Final Resu lt [facility] [address] [place] [address], * (ABNORMAL) Basic metabolic panel (09/17/2024 4:51 AM EDT) Only the most recent of2 resultswithin the time period is included. Sodium 145 133 - 145 mmol/L LAB CHEMISTRY METHOD 09/17/2024 9:16 AM [facility] Potassium 4.1 3.5 - 5.5 mmol/L LAB CHEMISTRY METHOD 09/17/2024 9:16 AM [facility] LAB Chloride 114(H) 96 - 110 mmol/L LAB CHEMISTRY METHOD 09/17/2024 9:16 AM [facility] LAB CO2 26 21 - 32 mmol/L LAB CHEMISTRY METHOD 09/17/2024 9:16 AM [facility] LAB Anion Gap 5 3 - 11 LAB CHEMISTRY METHOD 09/17/2024 9:16 AM [facility] Glucose 77 70 - 100 mg/dL LAB CHEMISTRY METHOD 09/17/2024 9:16 AM [facility] BUN 11 5 - 25 mg/dL LAB CHEMISTRY METHOD 09/17/2024 9:16 AM [facility] LAB Creatinine 0.65 0.50 - 1.10 mg/dL LAB CHEMISTRY METHOD 09/17/2024 9:16 AM [facility] LAB eGFR 90 >=60 mL/min/1. 73m2 LAB CHEMISTRY METHOD 09/17/2024 9:16 AM [facility] LAB Comment:Calculation based on the Chronic Kidney Disease Epidemiology Collaboration (CKD-EPI) equation refit without adjustment for race. BUN/Creatinine Ratio 16.9 LAB CHEMISTRY METHOD 09/17/2024 9:16 AM [facility] Calcium 9.2 8.5 - 10.5 mg/dL LAB CHEMISTRY METHOD 09/17/2024 9:16 AM [facility] Blood Venous blood specimen / Unknown Venipuncture / Unknown 09/17/2024 4:51 AM EDT 09/17/2024 7:42 AM EDT us Yaya Dobbins MD LAB BLOOD ORDERABLES Final Resu lt [facility] [address] [place] [address], [place] [phone] from Last 3 Months Insurance [facility] Care Teams Ground Service Equipment Mechanic Relationship Specialty Start Date End Date Yaya Dobbins MD [address] [place] [id number] PCP - General Internal Medicine 09/05/24
--- OUTSIDE RECORDS SUMMARY | 2024-11-21 12:03 | XMS_ITS | Encounter Summary ---
Author Organization [facility] Address [address] [place] [address] Care Team Providers Care Student Accounts Manager Name Role Phone Yaya Dobbins MD Primary Care Provider [phone] Encounter Details Date Type Department Care Team (Late st Contact Info) Description 09/19/2024 Lab Requisition [facility] - Main Lab [address] [facility] [place] [address] Yaya Dobbins MD [address] [place] [address] Hyperlipidemia, unspecified Social History Tobacco [...] mmol/L LAB CHEMISTRY METHOD 09/21/2024 11:20 AM [facility] LAB CO2 22 21 - 32 mmol/L LAB CHEMISTRY METHOD 09/21/2024 11:20 AM [facility] LAB Anion Gap 8 3 - 11 LAB CHEMISTRY METHOD 09/21/2024 11:20 AM [facility] LAB Glucose 82 70 - 100 mg/dL LAB CHEMISTRY METHOD 09/21/2024 11:20 AM [facility] LAB BUN 13 5 - 25 mg/dL LAB CHEMISTRY METHOD 09/21/2024 11:20 AM [facility] LAB Creatinine 0.61 0.50 - 1.10 mg/dL LAB CHEMISTRY METHOD 09/21/2024 11:20 AM [facility] LAB eGFR 92 >=60 mL/min/1. 73m2 LAB CHEMISTRY METHOD 09/21/2024 11:20 AM [facility] LAB Comment:Calculation based on the Chronic Kidney Disease Epidemiology Collaboration (CKD-EPI) equation refit without adjustment for race. BUN/Creatinine Ratio 21.3 LAB CHEMISTRY METHOD 09/21/2024 11:20 AM [facility] LAB Calcium 9.0 8.5 - 10.5 mg/dL LAB CHEMISTRY METHOD 09/21/2024 11:20 AM [facility] LAB AST (SGOT) 40 10 - 42 unit/L LAB CHEMISTRY METHOD 09/21/2024 11:20 AM [facility] LAB ALT (SGPT) 31 10 - 60 unit/L LAB CHEMISTRY METHOD 09/21/2024 11:20 AM [facility] LAB Alkaline Phosphatase 140(H) 42 - 121 unit/L LAB CHEMISTRY METHOD 09/21/2024 11:20 AM [facility] LAB Total Protein 5.3(L) 6.0 - 8.0 g/dL LAB CHEMISTRY METHOD 09/21/2024 11:20 AM [facility] LAB Albumin 3.1(L) 3.2 - 5.0 g/dL LAB CHEMISTRY METHOD 09/21/2024 11:20 AM [facility] LAB Total Bilirubin 0.5 0.0 - 1.4 mg/dL LAB CHEMISTRY METHOD 09/21/2024 11:20 AM [facility] LAB Blood Venous blood specimen / Unknown Venipuncture / Unknown 09/21/2024 4:46 AM EDT 09/21/2024 11:05 AM EDT us Yaya Dobbins MD LAB BLOOD ORDERABLES Final Resu lt [facility] [address] [place] [address], * (ABNORMAL) Complete blood count (09/21/2024 4:46 AM EDT) WBC 5.6 4.8 - 10.8 K/mcL LAB HEMETOLOGY METHOD 09/21/2024 10:22 AM [facility] LAB RBC 3.10(L) 3.80 - 4.80 M/mcL LAB HEMETOLOGY METHOD 09/21/2024 10:22 AM [facility] LAB Hemoglobin 9.8(L) 11.5 - 16.0 g/dL LAB HEMETOLOGY METHOD 09/21/2024 10:22 AM [facility] LAB Hematocrit 31.4(L) 35.0 - 47.0 % LAB HEMETOLOGY METHOD 09/21/2024 10:22 AM [facility] LAB MCV 101.0(H) 79.0 - 98.0 FL LAB HEMETOLOGY METHOD 09/21/2024 10:22 AM [facility] LAB MCH 31.5 27.0 - 32.0 pcg LAB HEMETOLOGY METHOD 09/21/2024 10:22 AM [facility] LAB MCHC 31.2(L) 32.0 - 37.0 [...] lt [facility] [address] [place] [address], documented in this encounter Visit Diagnoses Diagnosis Hyperlipidemia, unspecified documented in this encounter Care Teams Student Accounts Manager Relationship Specialty Start Date End Date Yaya Dobbins MD [address] [place] [address] PCP - General Internal Medicine 09/05/24 documented as of this encounter
--- OUTSIDE RECORDS SUMMARY | 2024-11-21 12:03 | XMS_ITS | Encounter Summary ---
Author Organization [facility] Address [address] [place] [address] Care Team Providers Care Insulation Inspector Name Role Phone Yaya Dobbins MD Primary Care Provider [phone] Encounter Details Date Type Department Care Team (Late st Contact Info) Description 09/11/2024 Lab Requisition [facility] - Main Lab [address] [facility] [place] [address] Yaya Dobbins MD [address] [place] [address] Hyperlipidemia, unspecified Social History Tobacco [...] LAB CHEMISTRY METHOD 09/14/2024 1:49 PM EDT [facility] Potassium 4.0 3.5 - 5.5 mmol/L LAB CHEMISTRY METHOD 09/14/2024 1:49 PM EDT [facility] Chloride 112(H) 96 - 110 mmol/L LAB CHEMISTRY METHOD 09/14/2024 1:[address] [facility] CO2 26 21 - 32 mmol/L LAB CHEMISTRY METHOD 09/14/2024 1:[address] [facility] Anion Gap 7 3 - 11 LAB CHEMISTRY METHOD 09/14/2024 1:[address] [facility] Glucose 72 70 - 100 mg/dL LAB CHEMISTRY METHOD 09/14/2024 1:[address] [facility] BUN 12 5 - 25 mg/dL LAB CHEMISTRY METHOD 09/14/2024 1:[address] [facility] Creatinine 0.64 0.50 - 1.10 mg/dL LAB CHEMISTRY METHOD 09/14/2024 1:[address] [facility] eGFR 91 >=60 mL/min/1. 73m2 LAB CHEMISTRY METHOD 09/14/2024 1:[address] [facility] Comment:Calculation based on the Chronic Kidney Disease Epidemiology Collaboration (CKD-EPI) equation refit without adjustment for race. BUN/Creatinine Ratio 18.8 LAB CHEMISTRY METHOD 09/14/2024 1:[address] [facility] Calcium 9.0 8.5 - 10.5 mg/dL LAB CHEMISTRY METHOD 09/14/2024 1:[address] [facility] AST (SGOT) 43(H) 10 - 42 unit/L LAB CHEMISTRY METHOD 09/14/2024 1:[address] [facility] ALT (SGPT) 31 10 - 60 unit/L LAB CHEMISTRY METHOD 09/14/2024 1:[address] [facility] Alkaline Phosphatase 125(H) 42 - 121 unit/L LAB CHEMISTRY METHOD 09/14/2024 1:[address] [facility] Total Protein 5.3(L) 6.0 - 8.0 g/dL LAB CHEMISTRY METHOD 09/14/2024 1:[address] [facility] Albumin 2.9(L) 3.2 - 5.0 g/dL LAB CHEMISTRY METHOD 09/14/2024 1:49 PM EDT [facility] Total Bilirubin 0.5 0.0 - 1.4 mg/dL LAB CHEMISTRY METHOD 09/14/2024 1:[address] [facility] Blood Venous blood specimen / Unknown Venipuncture / Unknown 09/14/2024 4:53 AM EDT 09/14/2024 10:55 AM EDT us Yaya Dobbins MD LAB BLOOD ORDERABLES Final Resu lt [facility] [address] [place] [address], * (ABNORMAL) Complete blood count (09/14/2024 4:53 AM EDT) WBC 7.1 4.8 - 10.8 K/mcL LAB HEMETOLOGY METHOD 09/14/2024 11:[address] [facility] RBC 3.20(L) 3.80 - 4.80 M/mcL LAB HEMETOLOGY METHOD 09/14/2024 11:[address] [facility] Hemoglobin 10.0(L) 11.5 - 16.0 g/dL LAB HEMETOLOGY METHOD 09/14/2024 11:[address] [facility] Hematocrit 32.0(L) 35.0 - 47.0 % LAB HEMETOLOGY METHOD 09/14/2024 11:[address] [facility] MCV 100.6(H) 79.0 - 98.0 FL LAB HEMETOLOGY METHOD 09/14/2024 11:[address] [facility] MCH 31.4 27.0 - 32.0 pcg LAB HEMETOLOGY METHOD 09/14/2024 11:[address] [facility] MCHC 31.3(L) 32.0 - 37.0 g/dL LAB HEMETOLOGY METHOD 09/14/2024 11:19 AM EDT [facility] RDW 14.9 11.0 - 15.0 % LAB HEMETOLOGY METHOD 09/14/2024 11:19 AM EDT [facility] Platelets 321 130 - 400 K/mcL LAB HEMETOLOGY METHOD 09/14/2024 11:19 AM EDT [facility] MPV 10.2 7.0 - 11.0 FL LAB HEMETOLOGY METHOD 09/14/2024 11:19 AM EDT [facility] NRBC 0.0 <1.0 % LAB HEMETOLOGY METHOD 09/14/2024 11:19 AM EDT [facility] NRBC Absolute 0.00 <0.10 K/mcL LAB HEMETOLOGY METHOD 09/14/2024 11:19 AM EDT [facility] Blood Venous blood specimen / Unknown Venipuncture / Unknown 09/14/2024 4:53 AM EDT 09/14/2024 10:54 AM EDT Yaya Dobbins MD LAB BLOOD ORDERABLES Final Resu lt [facility] [address] [place] [address], documented in this encounter Visit Diagnoses Diagnosis Hyperlipidemia, unspecified documented in this encounter Care Teams Insulation Inspector Relationship Specialty Start Date End Date Yaya Dobbins MD [address] [place] [address] PCP - General Internal Medicine 09/05/24 documented as of this encounter
--- OUTSIDE RECORDS SUMMARY | 2024-11-21 12:03 | XMS_ITS | Clinical Summary ---
Author Organization [facility] Address [address] [place], [place] [id number] Phone Care Team Providers Care Clinical Case Manager Name Role Phone Rodolfo Stein MD Primary Care Provider [phone] Allergies Active Allergy Reactions Criticality Noted Date [...] topic Medical Devices Not on file Insurance [facility] [address] [place] [address]O [facility] [address] [place] [place] [address] [place] [address]O [facility] Care Teams Clinical Case Manager Relationship Specialty Start Date End Date Rodolfo Stein MD [address] [place] [id number] PCP - General Internal Medicine 01/22/14 Additional Source Comments The information contained in this document represents components of the legal health record. It is not the complete legal health record.[facility]
--- OUTSIDE RECORDS SUMMARY | 2024-11-21 12:03 | XMS_ITS | Encounter Summary ---
Author Organization [facility] Address [address] [place] [address] Care Team Providers Care Operating Engineer Apprentice Name Role Phone Yaya Dobbins MD Primary Care Provider [phone] Encounter Details Date Type Department Care Team (Late st Contact Info) Description 09/16/2024 Lab Requisition [facility] - Main Lab [address] [facility] [place] [address] Yaya Dobbins MD [address] [place] [address] Hyperlipidemia, unspecified Social History Tobacco [...] LAB CHEMISTRY METHOD 09/17/2024 9:16 AM EDT [facility] Potassium 4.1 3.5 - 5.5 mmol/L LAB CHEMISTRY METHOD 09/17/2024 9:16 AM EDT [facility] Chloride 114(H) 96 - 110 [...] MD LAB BLOOD ORDERABLES Final Resu lt [facility] [address] [place] [address], * (ABNORMAL) Complete blood count (09/17/2024 4:51 AM EDT) WBC 5.9 4.8 - 10.8 K/[facility] LAB HEMETOLOGY METHOD 09/17/2024 8:39 AM [facility] RBC 3.30(L) 3.80 - 4.80 M/mcL LAB HEMETOLOGY METHOD 09/17/2024 8:39 AM [facility] Hemoglobin 10.1(L) 11.5 - 16.0 g/dL LAB HEMETOLOGY METHOD 09/17/2024 8:39 AM [facility] Hematocrit 32.4(L) 35.0 - 47.0 % LAB HEMETOLOGY METHOD 09/17/2024 8:39 AM [facility] MCV 99.7(H) 79.0 - 98.0 FL LAB HEMETOLOGY METHOD 09/17/2024 8:39 AM [facility] MCH 31.1 27.0 - 32.0 pcg LAB HEMETOLOGY METHOD 09/17/2024 8:39 AM [facility] MCHC 31.2(L) 32.0 - 37.0 g/dL LAB HEMETOLOGY METHOD 09/17/2024 8:39 AM [facility] RDW 15.2(H) 11.0 - 15.0 % LAB HEMETOLOGY METHOD 09/17/2024 8:39 AM [facility] Platelets 324 130 - 400 K/mcL LAB HEMETOLOGY METHOD 09/17/2024 8:39 AM [facility] MPV 10.1 7.0 - 11.0 FL LAB HEMETOLOGY METHOD 09/17/2024 8:39 AM [facility] NRBC 0.0 <1.0 % LAB HEMETOLOGY METHOD 09/17/2024 8:39 AM [facility] NRBC Absolute 0.00 <0.10 K/mcL LAB HEMETOLOGY METHOD 09/17/2024 8:39 AM [facility] Blood Venous blood specimen / Unknown Venipuncture / Unknown 09/17/2024 4:51 AM EDT 09/17/2024 7:42 AM EDT Yaya Dobbins MD LAB BLOOD ORDERABLES Final Resu lt [facility] [address] [place] [address], documented in this encounter Visit Diagnoses Diagnosis Hyperlipidemia, unspecified documented in this encounter Care Teams Operating Engineer Apprentice Relationship Specialty Start Date End Date Yaya Dobbins MD [address] [place] [address] PCP - General Internal Medicine 09/05/24 documented as of this encounter
--- OUTSIDE RECORDS SUMMARY | 2024-11-21 12:03 | XMS_ITS | Encounter Summary ---
Author Organization [facility] Address [address] [place] [address] Care Team Providers Care Tube Buffer Name Role Phone Yaya Dobbins MD Primary Care Provider [phone] Encounter Details Date Type Department Care Team (Late st Contact Info) Description 09/05/2024 Lab Requisition [facility] - Main Lab [address] [facility] [place] [address] Yaya Dobbins MD [address] [place] [address] Hyperlipidemia, unspecified; Hypothyroidism, unspecified Social [...] LAB CHEMISTRY METHOD 09/05/2024 10:48 AM EDT [facility] Potassium 4.1 3.5 - 5.5 mmol/L LAB CHEMISTRY METHOD 09/05/2024 10:48 AM EDT [facility] Chloride 109 96 - 110 mmol/L LAB CHEMISTRY METHOD 09/05/2024 10:48 AM [facility] CO2 28 21 - 32 mmol/L LAB CHEMISTRY METHOD 09/05/2024 10:48 AM [facility] Anion Gap 5 3 - 11 LAB CHEMISTRY METHOD 09/05/2024 10:48 AM [facility] Glucose 85 70 - 100 mg/dL LAB CHEMISTRY METHOD 09/05/2024 10:48 AM [facility] BUN 11 5 - 25 mg/dL LAB CHEMISTRY METHOD 09/05/2024 10:48 AM [facility] Creatinine 0.60 0.50 - 1.10 mg/dL LAB CHEMISTRY METHOD 09/05/2024 10:48 AM [facility] eGFR 92 >=60 mL/min/1. 73m2 LAB CHEMISTRY METHOD 09/05/2024 10:48 AM [facility] Comment:Calculation based on the Chronic Kidney Disease Epidemiology Collaboration (CKD-EPI) equation refit without adjustment for race. BUN/Creatinine Ratio 18.3 LAB CHEMISTRY METHOD 09/05/2024 10:48 AM [facility] Calcium 8.8 8.5 - 10.5 mg/dL LAB CHEMISTRY METHOD 09/05/2024 10:48 AM [facility] AST (SGOT) 55(H) 10 - 42 unit/L LAB CHEMISTRY METHOD 09/05/2024 10:48 AM [facility] ALT (SGPT) 30 10 - 60 unit/L LAB CHEMISTRY METHOD 09/05/2024 10:48 AM [facility] Alkaline Phosphatase 84 42 - 121 unit/L LAB CHEMISTRY METHOD 09/05/2024 10:48 AM [facility] Total Protein 5.3(L) 6.0 - 8.0 g/dL LAB CHEMISTRY METHOD 09/05/2024 10:48 AM [facility] Albumin 2.8(L) 3.2 - 5.0 g/dL LAB CHEMISTRY METHOD 09/05/2024 10:48 AM EDT [facility] Total Bilirubin 0.9 0.0 - 1.4 mg/dL LAB CHEMISTRY METHOD 09/05/2024 10:48 AM [facility] Blood Venous blood specimen / Unknown Venipuncture / Unknown 09/05/2024 6:49 AM EDT 09/05/2024 9:23 AM EDT us Yaay Dobbins MD LAB BLOOD ORDERABLES Final Resu lt [facility] [address] [place] [address], [place] [phone] * (ABNORMAL) Complete blood count (09/05/2024 6:49 AM EDT) WBC 8.4 4.8 - 10.8 K/mcL LAB HEMETOLOGY METHOD 09/05/2024 10:27 AM [facility] RBC 3.10(L) 3.80 - 4.80 M/mcL LAB HEMETOLOGY METHOD 09/05/2024 10:27 AM [facility] Hemoglobin 9.4(L) 11.5 - 16.0 g/dL LAB HEMETOLOGY METHOD 09/05/2024 10:27 AM [facility] Hematocrit 28.8(L) 35.0 - 47.0 % LAB HEMETOLOGY METHOD 09/05/2024 10:27 AM [facility] MCV 92.9 79.0 - 98.0 FL LAB HEMETOLOGY METHOD 09/05/2024 10:27 AM [facility] MCH 30.3 27.0 - 32.0 pcg LAB HEMETOLOGY METHOD 09/05/2024 10:27 AM [facility] MCHC 32.6 32.0 - 37.0 g/dL LAB HEMETOLOGY METHOD 09/05/2024 10:27 AM EDT [facility] RDW 13.0 11.0 - 15.0 % LAB HEMETOLOGY METHOD 09/05/2024 10:27 AM EDT [facility] Platelets 194 130 - 400 K/mcL LAB HEMETOLOGY METHOD 09/05/2024 10:27 AM EDT [facility] MPV 11.2(H) 7.0 - 11.0 FL LAB HEMETOLOGY METHOD 09/05/2024 10:27 AM EDT [facility] NRBC 0.0 <1.0 % LAB HEMETOLOGY METHOD 09/05/2024 10:27 AM EDT [facility] NRBC Absolute 0.00 <0.10 K/mcL LAB HEMETOLOGY METHOD 09/05/2024 10:27 AM EDT [facility] Blood Venous blood specimen / Unknown Venipuncture / Unknown 09/05/2024 6:49 AM EDT 09/05/2024 9:23 AM EDT us Yaya Dobbins MD LAB BLOOD ORDERABLES Final Resu lt [facility] [address] [place] [address], documented in this encounter Visit Diagnoses Diagnosis Hyperlipidemia, unspecified Hypothyroidism, unspecified documented in this encounter Care Teams Tube Buffer Relationship Specialty Start Date End Date Yaya Dobbins MD [address] [place] [id number] PCP - General Internal Medicine 09/05/24 documented as of this encounter
--- OUTSIDE RECORDS SUMMARY | 2024-11-21 12:03 | XMS_ITS | Encounter Summary ---
Author Organization [facility] Address [address] [place] [address] Care Team Providers Care Rn Practitioner Name Role Phone Yaya Dobbins MD Primary Care Provider Encounter Details Date Type Department Care Team (Late st Contact Info) Description 09/09/[address] [facility] - Main Lab [address] [facility] [place] [address] Yaya Dobbins MD [address] [place] [address] Hyperlipidemia, unspecified Social History Tobacco [...] LAB CHEMISTRY METHOD 09/10/2024 9:35 AM EDT [facility] Potassium 4.2 3.5 - 5.5 mmol/L LAB CHEMISTRY METHOD 09/10/2024 9:35 AM EDT [facility] Chloride 113(H) 96 - 110 mmol/L LAB CHEMISTRY METHOD 09/10/2024 9:35 AM [facility] CO2 26 21 - 32 mmol/L LAB CHEMISTRY METHOD 09/10/2024 9:35 AM [facility] Anion Gap 5 3 - 11 LAB CHEMISTRY METHOD 09/10/2024 9:35 AM [facility] Glucose 86 70 - 100 mg/dL LAB CHEMISTRY METHOD 09/10/2024 9:35 AM [facility] BUN 10 5 - 25 mg/dL LAB CHEMISTRY METHOD 09/10/2024 9:35 AM [facility] Creatinine 0.51 0.50 - 1.10 mg/dL LAB CHEMISTRY METHOD 09/10/2024 9:35 AM [facility] eGFR 96 >=60 mL/min/1. 73m2 LAB CHEMISTRY METHOD 09/10/2024 9:35 AM [facility] Comment:Calculation based on the Chronic Kidney Disease Epidemiology Collaboration (CKD-EPI) equation refit without adjustment for race. BUN/Creatinine Ratio 19.6 LAB CHEMISTRY METHOD 09/10/2024 9:35 AM [facility] Calcium 9.1 8.5 - 10.5 mg/dL LAB CHEMISTRY METHOD 09/10/2024 9:35 AM [facility] Blood Venous blood specimen / Unknown Venipuncture / Unknown 09/10/2024 4:58 AM EDT 09/10/2024 8:42 AM EDT us Yaya Dobbins MD LAB BLOOD ORDERABLES Final Resu lt [facility] [address] [place] [address], * (ABNORMAL) Complete blood count (09/10/2024 4:58 AM EDT) WBC 7.7 4.8 - 10.8 [facility] LAB HEMETOLOGY METHOD 09/10/2024 9:07 AM [facility] RBC 3.00(L) 3.80 - 4.80 M/mcL LAB HEMETOLOGY METHOD 09/10/2024 9:07 AM [facility] Hemoglobin 9.5(L) 11.5 - 16.0 g/dL LAB HEMETOLOGY METHOD 09/10/2024 9:07 AM [facility] Hematocrit 29.7(L) 35.0 - 47.0 % LAB HEMETOLOGY METHOD 09/10/2024 9:07 AM [facility] MCV 98.3(H) 79.0 - 98.0 FL LAB HEMETOLOGY METHOD 09/10/2024 9:07 AM [facility] MCH 31.5 27.0 - 32.0 pcg LAB HEMETOLOGY METHOD 09/10/2024 9:07 AM [facility] MCHC 32.0 32.0 - 37.0 g/dL LAB HEMETOLOGY METHOD 09/10/2024 9:07 AM [facility] RDW 14.1 11.0 - 15.0 % LAB HEMETOLOGY METHOD 09/10/2024 9:07 AM [facility] Platelets 304 130 - 400 K/mcL LAB HEMETOLOGY METHOD 09/10/2024 9:07 AM [facility] MPV 10.5 7.0 - 11.0 FL LAB HEMETOLOGY METHOD 09/10/2024 9:07 AM [facility] NRBC 0.0 <1.0 % LAB HEMETOLOGY METHOD 09/10/2024 9:07 AM [facility] NRBC Absolute 0.00 <0.10 K/mcL LAB HEMETOLOGY METHOD 09/10/2024 9:07 AM [facility] Blood Venous blood specimen / Unknown Venipuncture / Unknown 09/10/2024 4:58 AM EDT 09/10/2024 8:45 AM EDT Yaya Dobbins MD LAB BLOOD ORDERABLES Final Resu lt [facility] ([facility]) [facility] [address] [place] [address], documented in this encounter Visit Diagnoses Diagnosis Hyperlipidemia, unspecified documented in this encounter Care Teams Rn Practitioner Relationship Specialty Start Date End Date Yaya Dobbins MD [address] [place] [address] PCP - General Internal Medicine 09/05/24 documented as of this encounter
--- OUTSIDE RECORDS SUMMARY | 2024-11-21 12:03 | XMS_ITS | Encounter Summary ---
Author Organization [facility] Address [address] [place] [address] Care Team Providers Care Information Consultant Name Role Phone Yaya Dobbins MD Primary Care Provider [phone] Encounter Details Date Type Department Care Team (Late st Contact Info) Description 09/07/2024 Lab Requisition [facility] - Main Lab [address] [facility] [place] [address] Yaya Dobbins MD [address] [place] [address] Hypothyroidism, unspecified; Hyperlipidemia, unspecified Social [...] mmol/L LAB CHEMISTRY METHOD 09/07/2024 12:51 PM [facility] CO2 26 21 - 32 mmol/L LAB CHEMISTRY METHOD 09/07/2024 12:51 PM [facility] Anion Gap 7 3 - 11 LAB CHEMISTRY METHOD 09/07/2024 12:51 PM [facility] Glucose 80 70 - 100 mg/dL LAB CHEMISTRY METHOD 09/07/2024 12:51 PM [facility] BUN 10 5 - 25 mg/dL LAB CHEMISTRY METHOD 09/07/2024 12:51 PM [facility] Creatinine 0.60 0.50 - 1.10 mg/dL LAB CHEMISTRY METHOD 09/07/2024 12:51 PM [facility] eGFR 92 >=60 mL/min/1. 73m2 LAB CHEMISTRY METHOD 09/07/2024 12:51 PM [facility] Comment:Calculation based on the Chronic Kidney Disease Epidemiology Collaboration (CKD-EPI) equation refit without adjustment for race. BUN/Creatinine Ratio 16.7 LAB CHEMISTRY METHOD 09/07/2024 12:51 PM [facility] Calcium 8.6 8.5 - 10.5 mg/dL LAB CHEMISTRY METHOD 09/07/2024 12:51 PM [facility] AST (SGOT) 48(H) 10 - 42 unit/L LAB CHEMISTRY METHOD 09/07/2024 12:51 PM [facility] ALT (SGPT) 32 10 - 60 unit/L LAB CHEMISTRY METHOD 09/07/2024 12:51 PM [facility] Alkaline Phosphatase 106 42 - 121 unit/L LAB CHEMISTRY METHOD 09/07/2024 12:51 PM [facility] Total Protein 5.4(L) 6.0 - 8.0 g/dL LAB CHEMISTRY METHOD 09/07/2024 12:51 PM [facility] Albumin 2.9(L) [...] Resu lt [facility] [address] [place] [address], [place] [phone] * (ABNORMAL) Complete blood count (09/07/2024 5:09 AM EDT) WBC 8.2 4.8 - 10.8 K/mcL LAB HEMETOLOGY METHOD 09/07/2024 1:09 PM EDT [facility] RBC 3.10(L) 3.80 - 4.80 M/mcL LAB HEMETOLOGY METHOD [facility] Hemoglobin 9.3(L) 11.5 - 16.0 g/dL LAB HEMETOLOGY METHOD 09/07/2024 1:09 PM EDT [facility] Hematocrit 29.6(L) 35.0 - 47.0 % LAB HEMETOLOGY METHOD 09/07/2024 1:09 PM EDT [facility] MCV 97.0 79.0 - 98.0 FL LAB HEMETOLOGY METHOD 09/07/2024 1[facility] MCH 30.5 27.0 - 32.0 pcg [...] Resu lt [facility] [address] [place] [address], [place] [phone] documented in this encounter Visit Diagnoses Diagnosis Hypothyroidism, unspecified Hyperlipidemia, unspecified documented in this encounter Care Teams Information Consultant Relationship Specialty Start Date End Date Yaya Dobbins MD [address] [place] [address] PCP - General Internal Medicine 09/05/24 documented as of this encounter
[2024-11-21 15:30] VITALS: BP 171/74; PULSE 75; RESP 18; TEMP -17.7; TEMP 0; O2SAT 95
== END 2024-11-21 15:31 | disposition home or self-care (01) ==
PROVIDERS: Emergency Provider Emergency Medicine; PCP Physician Assistant Medical
DX: T63.441A Toxic effect of venom of bees, accidental (unintentional), initial encounter (principal); Y92.9 Unspecified place or not applicable
CPT/HCPCS: 99283; 99284

== ENCOUNTER 2024-11-23 14:23 | Outpatient (AMB) | payer MEDICARE, SELFPAY ==
--- NOTE | 2024-11-23 14:23 | A.OFFPC_ITS ---
Vital Signs 11/23/24 14:25 Height 5 ft 2.99 in Weight 201 lb 6 oz BMI 35.7 BP 142/86 H Blood Pressure Location Lt brachial Position Sitting Respiration 20 Pulse 86 Pulse Source Pulse Oximeter Temp 97.2 F Temp Source Temporal Artery Scan Pulse Oximetry (%) 97 Oxygen Delivery Method Room Air Intake Visit Reasons: ER Follow up Accompanied by: Self / Same As Patient Allergies oxycodone (OXYCODONE) Allergy (Severe, Verified 11/23/24 14:57) N/V aspirin (ASPIRIN) Allergy (Intermediate, Verified 11/23/24 14:57) GI UPSET/BLEEDING latex (LATEX) Allergy (Intermediate, Verified 11/23/24 14:57) RASH NSAIDS (Non-Steroidal Anti-Inflamma (NSAIDS (NON-STEROIDAL ANTI-INFLAMMA) Allergy (Intermediate, Verified 11/23/24 14:57) GI UPSET/BLEEDING naproxen (From Aleve) Allergy (Verified 11/23/24 14:57) Diarrhea Medication List - Last Reconciled 11/23/24 by Trini Araujo PA-C ascorbic acid (vitamin C) ER 1,000 mg PO DAILY carvedilol 3.125 mg PO BID 90 days clotrimazole 1% 1 appl topical bid 4 weeks cyclobenzaprine 10 mg PO Q8H PRN furosemide (Lasix) 40 mg PO DAILY 5 days glipizide 5 mg PO BID 90 days latanoprost 0.005% 1 drp ophthalmic (eye) DAILY levothyroxine Patient takes 50 mcg Saturday through Saturday levothyroxine Patient takes 75 mcg Saturday and Sundays only lorazepam 0.5 mg PO DAILY PRN multivitamin 1 tab PO DAILY pyridoxine (vitamin B6) 100 mg PO DAILY 90 days simvastatin 20 mg PO BEDTIME Tobacco use date assessed: 11/23/24 Fall risk assessment: No Falls in past year Dental Screening Dental Screen Date: 11/23/24 Did you have a dental visit in the last 12 months?: Yes HPI ER Follow up HPI Details The patient is a 79-year-old female presenting with the aftermath of multiple yellow jacket stings. She was stung approximately 20 times while at her home, which led to a visit to the emergency room where she was observed for four hours and given Tylenol. The stings have resulted in significant discomfort, with some areas developing cellulitis, particularly on her extremities. The patient also reports a persistent cough that began the morning of the visit, which she associates with difficulty swallowing. There is concern for a possible throat infection, potentially acquired during her recent hospital visit. The patient has a history of diabetes mellitus type 2, which complicates her treatment options, particularly concerning the use of steroids for inflammation control. She is also dealing with chronic venous insufficiency, which has been previously evaluated by a vascular surgeon. Social History - Housing: Currently in respite care, krystina benitez was at home when stung by yellow jackets. - Functional status: Engaged in physical therapy, experiencing soreness in musculature and pelvis. [facility] Medical History (Updated 11/23/24 @ 16:26 by Trini Araujo PA-C) Venous insufficiency Throat infection Type 2 diabetes mellitus with hemoglobin A1c goal of less than 7.0% Cellulitis of lower leg Preventative health care Kidney stone Hip pain Cellulitis of left foot Pedal edema Medication management Hypothyroidism Class 1 obesity with body mass index (BMI) of 32.0 to 32.9 in adult History of mammogram (~07/15/24) Cough Establishing care with new doctor, encounter for Anxiety GI bleed Surgical History S/P total left hip arthroplasty History of colonoscopy (~07/08/19) S/P tooth extraction Family History Father S/P CABG x 4 Stroke Heart attack Heart disease Mother Cancer Paternal Uncle Heart disease Diabetes Paternal Uncle Heart disease Daughter Multiple sclerosis Paternal Grandmother Diabetes Maternal Grandfather Stomach cancer Social History Housing: House Alcohol intake: current Alcohol intake frequency: does not drink Patient Tobacco Use Status: Former Tobacco user service: No Current occupational status: retired Cognitive needs: Yes (walker) Hearing needs: No Vision needs: Yes (uses glasses for reading, not prescribed) Questionnaire PHQ-9 Over the last 2 weeks, how often have you been bothered by any of the following problems? 1. Little interest or pleasure in doing things: more than half the days 2. Feeling down, depressed, or hopeless: more than half the days 3. Trouble falling or staying asleep, or sleeping too much: not at all 4. Feeling tired or having little energy: more than half the days 5. Poor appetite or overeating: not at all 6. Feeling bad about yourself - or that you are a failure or have let yourself or your family down: not at all 7. Trouble concentrating on things, such as reading the newspaper or watching television: not at all 8. Moving or speaking so slowly that other people could have noticed. Or the opposite - being so fidgety or restless that you have been moving around a lot more than usual: not at all 9. Thoughts that you would be better off or of hurting yourself in some way: not at all Total score: 6 Depression Screening Interpretation: Positive Depression Screening Follow-up: Existing condition and In treatment Depression Screening Done: Yes 81638 - PHQ-9 Billing: Yes Source: Developed by Drs. Ulises Thomas, Adry Ochoa, Cruz Oreilly and colleagues, with an educational lorenzo from [employer]. Thrive Questionnaire Date Thrive assessed: 07/28/24 I am a: Patient What is your living situation today?: I have a steady place to live Within the past 12 months, did the food you bought not last and you didn't have the money to get more?: Never true Within the past 12 months, did you worry whether your food would run out before you got money to buy more?: Never true Do you have trouble paying for medicines?: No Do you have trouble getting transportation to medical appointments?: No Do you have trouble paying your heating and electricity bill?: No Do you have trouble taking care of your child, family member or friend?: No Do you have trouble with day-to-day activities such as bathing, preparing meals, shopping, managing finances, etc.?: No Are you currently unemployed and looking for a job?: No Are you interested in more education?: No THRIVE Score: 0 AUDIT C Alcohol Use Questionnaire (AUDIT-C) 1. How often do you have a drink containing alcohol?: Never 3. How often do you have six or more drinks on one occasion?: Never Total Score: 0 Score Reviewed/Action Taken: No MALLY-7 AMB Questionnaire MALLY-7 Date MALLY - 7 assessed: 07/28/24 Feeling nervous, anxious, or on edge: 3 = Nearly every day Not being able to stop or control worryin = Nearly every day Worrying too much about different things: 3 = Nearly every day Trouble relaxin = Nearly every day Being so restless that it is hard to sit still: 0 = Not at all Becoming easily annoyed or irritable: 0 = Not at all Feeling afraid as if something awful might happen: 2 = More than half the days Total MALLY-7 score (0-4 normal; 5-9 mild; 10-14 moderate; 15-21 severe): 14 Source: Developed by Drs. Ulises Thomas, Adry Ochoa, Cruz Oreilly and colleagues, with an educational lorenzo from [employer]. MALLY-7 Assessment Billing MALLY-7 Assessment Tool: MALLY-7 Assessment 28955 Review of Systems Const Details: - Integumentary: Reports multiple yellow jacket stings with associated cellulitis. - Respiratory: Reports persistent cough and difficulty swallowing. - Endocrine: Denies recent changes in diabetes management. All systems reviewed & are unremarkable except as noted in HPI and below Physical exam (Primary Care) Vital Signs: Last Vital Signs Temp 97.2 F 11/23/24 14:25 Pulse 86 11/23/24 14:25 Resp 20 11/23/24 14:25 BP 142/86 H 11/23/24 14:25 Pulse Ox 97 11/23/24 14:25 Oxygen Delivery Method Room Air 11/23/24 14:25 Care Plan Goal for BP management: <140/90 at Goal BMI result Body Mass Index 35.7 BMI Assessment/Plan discussion: High BMI High, discussed plan: lifestyle, weight reduction, dietary, physical activity, alcohol moderation and other Tobacco/Smoking Status: Tobacco use Status Tobacco use date assessed 11/23/24 11/23/24 14:39 Patient Tobacco Use Status Former Tobacco user 11/23/24 14:39 PHQ-9: PHQ-9 Score PHQ-9: Total score 6 11/23/24 14:39 Depression Screening Interpretation: Positive Depression Screening Follow-up: Existing condition and In treatment Thrive Assessment: Date of Thrive Assessment Date Thrive assessed 07/28/24 11/23/24 14:39 Const Other: Appearance: Alert. Oriented X3. No acute distress. Head: Normal external exam. Normocephalic. Atraumatic. Eyes: Pupils are equal, round, and reactive to light. Extraocular movements intact. Conjunctiva and sclera normal. Eyelids normal. Throat: Pharynx normal. Uvula midline. Moist mucous membranes. Normal voice. No exudate is noted. No angioedema is noted. Patient is swallowing well. Patient tolerating secretions well. No trismus drooling or stridor is noted. Neck: Normal inspection. Neck supple. Full range of motion. No adenopathy. No meningeal signs. Cardiovascular: Normal heart rate and rhythm. Heart sound normal. No murmurs noted. Pulses normal throughout. Respiratory: No respiratory distress. Painless inspiration. Breath sounds normal. No wheezes/rales/rhonchi noted. Chest nontender. No accessory muscle usage noted or decreased air movement noted. Back: Full range of motion noted. Three insect bites noted on the back. Skin: Skin warm and dry. Normal skin color. Normal skin turgor. Multiple insect bites noted, including four on the pinky and several on the legs. Some bites are itchy and painful. No additional rashes/lesions/lacerations noted. Extremities: Extremities exhibit normal range of motion. Chronic cellulitis noted on the legs. No calf tenderness is noted. Neuro: Oriented X 3. No motor deficit. No sensory deficit. Reflexes normal. Coding Level of Care Code Est Pt Level 4 (38914) Complex EM visit Add On G2211 Diagnoses Stung by yellow jacket T63.461A Cellulitis of lower leg L03.119 Type 2 diabetes mellitus with hemoglobin A1c goal of less than 7.0% E11.9 Cough R05.9 Throat infection J02.9 Venous insufficiency I87.2 Additional Codes MALLY-7 Assessment Billing - MALLY-7 Assessment Tool: MALLY-7 Assessment 48732 ([id number]) PHQ-9 - 12164 - PHQ-9 Billing: Yes ([id number]) Assessment & Plan Assessment & Plan (1) Stung by yellow jacket: Code(s): T63.461A - Toxic effect of venom of wasps, accidental (unintentional), initial encounter Category: Medical Plan: The patient experienced multiple yellow jacket stings, leading to significant discomfort and cellulitis in some areas. Management includes the application of a topical ointment to alleviate symptoms and prevent further infection. (2) Cellulitis of lower leg: Code(s): L03.119 - Cellulitis of unspecified part of limb Category: Medical Plan: The cellulitis observed in areas affected by the stings is being managed with antibiotics, specifically Augmentin, to address any bacterial infection. (3) Type 2 diabetes mellitus with hemoglobin A1c goal of less than 7.0%: Code(s): E11.9 - Type 2 diabetes mellitus without complications Category: Medical Plan: The patient's diabetes mellitus type 2 complicates the use of systemic steroids due to potential hyperglycemia, thus a topical treatment is preferred. (4) Cough: Code(s): R05.9 - Cough, unspecified Category: Medical Plan: The cough, which may be related to a possible throat infection, is being evaluated with a respiratory panel and chest x-ray to rule out pneumonia or other respiratory conditions. (5) Throat infection: Code(s): J02.9 - Acute pharyngitis, unspecified Category: Medical Plan: A possible throat infection is suspected, and the patient is being treated with antibiotics to address any bacterial cause. (6) Venous insufficiency: Code(s): I87.2 - Venous insufficiency (chronic) (peripheral) Category: Medical Plan: The patient has chronic venous insufficiency, previously evaluated by a vascular surgeon, with a follow-up appointment scheduled to assess the need for further intervention. Plan Plan Patient was informed and verbally consented to the use of an ambient scribe for clinic note documentation during this visit. 1. Yellow Jacket Stings The patient experienced multiple yellow jacket stings, leading to significant discomfort and cellulitis in some areas. Management includes the application of a topical ointment to alleviate symptoms and prevent further infection. 2. Cellulitis The cellulitis observed in areas affected by the stings is being managed with antibiotics, specifically Augmentin, to address any bacterial infection. 3. Diabetes Mellitus Type 2 The patient's diabetes mellitus type 2 complicates the use of systemic steroids due to potential hyperglycemia, thus a topical treatment is preferred. 4. Cough The cough, which may be related to a possible throat infection, is being evalu ated with a respiratory panel and chest x-ray to rule out pneumonia or other respiratory conditions. 5. Possible Throat Infection A possible throat infection is suspected, and the patient is being treated with antibiotics to address any bacterial cause. 6. Venous Insufficiency The patient has chronic venous insufficiency, previously evaluated by a vascular surgeon, with a follow-up appointment scheduled to assess the need for further intervention. I discussed with the patient the management of her yellow jacket stings, emphasizing the use of topical ointments to alleviate symptoms and prevent infection. We also addressed her cellulitis with a course of Augmentin and discussed the potential complications of using systemic steroids due to her diabetes mellitus type 2. A respiratory panel and chest x-ray were ordered to evaluate her cough and possible throat infection, with a follow-up appointment scheduled for further evaluation of her venous insufficiency. Orders: Orders Resp Pathogen Panel - [facility] [place] Today R05.9 - Cough, unspecified XR chest 2V Today R05.9 - Cough, unspecified Hemoglobin A1c Today Z00.00 - Encounter for general adult medical examination without abnormal findings UA CC w/rflx Micro + Cult Today Z00.00 - Encounter for general adult medical examination without abnormal findings Vitamin B12 and Folate Today Z00.00 - Encounter for general adult medical examination without abnormal findings Complete Blood Count no Diff Today Z00.00 - Encounter for general adult medical examination without abnormal findings Liver Panel Today Z00.00 - Encounter for general adult medical examination without abnormal findings Microalbumin, Random (w Creat) Today E11.9 - Type 2 diabetes mellitus without complications Magnesium Today Z00.00 - Encounter for general adult medical examination without abnormal findings Vitamin D 25-OH Total Today Z00.00 - Encounter for general adult medical examination without abnormal findings TSH reflex Free T4 Today Z00.00 - Encounter for general adult medical examination without abnormal findings Medications: New betamethasone dipropionate 0.05% 1 appl topical BID PRN 45 grams 3RF skin irritation amoxicillin-pot clavulanate 875-125 mg 1 tab PO BID 20 tabs 0RF 10 days Patient Instructions: - Apply the prescribed topical ointment to affected areas as directed. - Complete the full course of prescribed antibiotics (Augmentin). - Attend the scheduled appointment for a respiratory panel and chest x-ray. - Follow up with the vascular surgeon as scheduled.
[2024-11-23 14:25] VITALS: BP 142/86; PULSE 86; RESP 20; TEMP 36.2; O2SAT 97; BMI 35.7
--- OUTSIDE RECORDS SUMMARY | 2024-11-23 16:55 | XMS_ITS | Encounter Summary ---
Author Organization [facility] Address [address] [place] [address] Care Team Providers Care Dialysis Equipment Technician Name Role Phone Yaya Dobbins MD Primary Care Provider [phone]
== END 2024-11-23 15:10 | disposition home or self-care (01) ==
LOC: HO.HMCSH 14:23
PROVIDERS: PCP Physician Assistant Medical; Visit Provider Physician Assistant Medical
DX: T63.461A Toxic effect of venom of wasps, accidental (unintentional), initial encounter (principal); L03.119 Cellulitis of unspecified part of limb; E11.9 Type 2 diabetes mellitus without complications; R05.9 Cough, unspecified; J02.9 Acute pharyngitis, unspecified; I87.2 Venous insufficiency (chronic) (peripheral)

== ENCOUNTER → 2024-11-23 14:23 | Outpatient (BNVA) | payer MEDICARE, SELFPAY | PROVIDERS: PCP Physician Assistant Medical; Visit Provider Physician Assistant Medical | DX: R05.3 Chronic cough (principal); E11.9 Type 2 diabetes mellitus without complications; J02.9 Acute pharyngitis, unspecified; I87.2 Venous insufficiency (chronic) (peripheral); L03.116 Cellulitis of left lower limb; T63.461A Toxic effect of venom of wasps, accidental (unintentional), initial encounter | CPT/HCPCS: 96127; 99212 ==

== ENCOUNTER 2024-11-24 13:31 | Outpatient (REF) | payer MEDICARE, SELFPAY ==
--- NOTE | ~2024-11-24 | XR_ITS ---
EXAMINATION: XR CHEST CLINICAL INFORMATION: R05.9 - Cough, unspecified COMPARISON: 11/09/2024, 11/04/2024. TECHNIQUE: 2 views of the chest were obtained. FINDINGS: The cardiac, hilar, and mediastinal contours are normal. The lungs are mildly hyperaerated, however clear bilaterally. There is no pneumothorax or pleural effusion. There is no focal osseous or soft tissue abnormality. There are degenerative changes of the spine. XR/XR chest 2V IMPRESSION: No active pulmonary disease. Electronically signed by: Juan Luis Galan MD 11/24/2024 01:56 PM EDT
--- OUTSIDE RECORDS SUMMARY | 2024-11-24 16:39 | XMS_ITS | Encounter Summary ---
Author Organization [facility] Address [address] [place] [address] Care Team Providers Care Msw Name Role Phone Yaya Dobbins MD Primary Care Provider Encounter Details Date Type Department Care Team (Late st Contact Info) Description 09/09/2024 Lab Requisition [facility] - Main Lab 299 [facility] [place] [address] Yaya Dobbins MD [address] [place] [address] Hyperlipidemia, unspecified Social History Tobacco [...] LAB CHEMISTRY METHOD 09/10/2024 9:[address] [facility] Potassium 4.2 3.5 - 5.5 mmol/L LAB CHEMISTRY METHOD 09/10/2024 9:[address] [facility] Chloride 113(H) 96 - 110 mmol/L LAB CHEMISTRY METHOD 09/10/2024 9:35 AM [facility] CO2 26 21 - 32 mmol/L LAB CHEMISTRY METHOD 09/10/2024 9:35 AM [facility] Anion Gap 5 3 - 11 LAB CHEMISTRY METHOD 09/10/2024 9:35 AM [facility] Glucose 86 70 - 100 mg/dL LAB CHEMISTRY METHOD 09/10/2024 9:35 AM [facility] BUN 10 5 - 25 mg/dL LAB CHEMISTRY METHOD 09/10/2024 9:35 AM [facility] Creatinine 0.51 0.50 - 1.10 mg/dL LAB CHEMISTRY METHOD 09/10/2024 9:35 AM [facility] LAB eGFR 96 >=60 mL/min/1. 73m2 LAB CHEMISTRY METHOD 09/10/2024 9:35 AM [facility] Comment:Calculation based on the Chronic Kidney Disease Epidemiology Collaboration (CKD-EPI) equation refit without adjustment for race. BUN/Creatinine Ratio 19.6 LAB CHEMISTRY METHOD 09/10/2024 9:35 AM [facility] Calcium 9.1 8.5 - 10.5 mg/dL LAB CHEMISTRY METHOD 09/10/2024 9:35 AM [facility] Blood Venous blood specimen / Unknown Venipuncture / Unknown 09/10/2024 4:58 AM EDT 09/10/2024 8:42 AM EDT us Yaya Dobbins MD LAB BLOOD ORDERABLES Final Resu lt [facility] [address] [place] [address], * (ABNORMAL) Complete blood count (09/10/2024 4:58 AM EDT) WBC 7.7 4.8 - 10.8 K/[facility] LAB HEMETOLOGY METHOD 09/10/2024 9:07 AM [facility] RBC 3.00(L) 3.80 - 4.80 M/mcL LAB HEMETOLOGY METHOD 09/10/2024 9:07 AM [facility] Hemoglobin 9.5(L) 11.5 - 16.0 g/dL LAB HEMETOLOGY METHOD 09/10/2024 9:07 AM [facility] LAB Hematocrit 29.7(L) 35.0 - 47.0 % LAB HEMETOLOGY METHOD 09/10/2024 9:07 AM [facility] LAB MCV 98.3(H) 79.0 - 98.0 FL LAB HEMETOLOGY METHOD 09/10/2024 9:07 AM [facility] LAB MCH 31.5 27.0 - 32.0 pcg LAB HEMETOLOGY METHOD 09/10/2024 9:07 AM [facility] LAB MCHC 32.0 32.0 - 37.0 g/dL LAB HEMETOLOGY METHOD 09/10/2024 9:07 AM [facility] LAB RDW 14.1 11.0 - 15.0 % LAB HEMETOLOGY METHOD 09/10/2024 9:07 AM [facility] LAB Platelets 304 130 - 400 K/mcL LAB HEMETOLOGY METHOD 09/10/2024 9:07 AM [facility] LAB MPV 10.5 7.0 - 11.0 FL LAB HEMETOLOGY METHOD 09/10/2024 9:07 AM [facility] LAB NRBC 0.0 <1.0 % LAB HEMETOLOGY METHOD 09/10/2024 9:07 AM [facility] LAB NRBC Absolute 0.00 <0.10 K/mcL LAB HEMETOLOGY METHOD 09/10/2024 9:07 AM [facility] LAB Blood Venous blood specimen / Unknown Venipuncture / Unknown 09/10/2024 4:58 AM EDT 09/10/2024 8:45 AM EDT Yaya Dobbins MD LAB BLOOD ORDERABLES Final Resu lt [facility] ([facility] LAB [address] [place] [address], documented in this encounter Visit Diagnoses Diagnosis Hyperlipidemia, unspecified documented in this encounter Care Teams Msw Relationship Specialty Start Date End Date Yaya Dobbins MD [address] [place] [address] PCP - General Internal Medicine 09/05/24 documented as of this encounter
--- OUTSIDE RECORDS SUMMARY | 2024-11-24 16:39 | XMS_ITS | Encounter Summary ---
Author Organization [facility] Address [address] [place] [address] Care Team Providers Care Mud Mill Tender Name Role Phone Yaya Dobbins MD Primary Care Provider [phone] Encounter Details Date Type Department Care Team (Late st Contact Info) Description 09/07/2024 Lab Requisition [facility] - Main Lab 299 [facility] [place] [address] Yaya Dobbins MD [address] [place] [address] Hypothyroidism, unspecified; Hyperlipidemia, unspecified Social [...] LAB CHEMISTRY METHOD 09/07/2024 12:51 PM EDT [facility] Potassium 4.0 3.5 - 5.5 mmol/L LAB CHEMISTRY METHOD 09/07/2024 12:51 PM EDT [facility] Chloride 111(H) 96 - 110 mmol/L LAB CHEMISTRY METHOD 09/07/2024 12:51 PM [facility] LAB CO2 26 21 - 32 mmol/L LAB CHEMISTRY METHOD 09/07/2024 12:51 PM [facility] LAB Anion Gap 7 3 - 11 LAB CHEMISTRY METHOD 09/07/2024 12:51 PM [facility] Glucose 80 70 - 100 mg/dL LAB CHEMISTRY METHOD 09/07/2024 12:51 PM [facility] BUN 10 5 - 25 mg/dL LAB CHEMISTRY METHOD 09/07/2024 12:51 PM [facility] Creatinine 0.60 0.50 - 1.10 mg/dL LAB CHEMISTRY METHOD 09/07/2024 12:51 PM [facility] LAB eGFR 92 >=60 mL/min/1. 73m2 LAB CHEMISTRY METHOD 09/07/2024 12:51 PM [facility] Comment:Calculation based on the Chronic Kidney Disease Epidemiology Collaboration (CKD-EPI) equation refit without adjustment for race. BUN/Creatinine Ratio 16.7 LAB CHEMISTRY METHOD 09/07/2024 12:51 PM [facility] Calcium 8.6 8.5 - 10.5 mg/dL LAB CHEMISTRY METHOD 09/07/2024 12:51 PM [facility] AST (SGOT) 48(H) 10 - 42 unit/L LAB CHEMISTRY METHOD 09/07/2024 12:51 PM [facility] ALT (SGPT) 32 10 - 60 unit/L LAB CHEMISTRY METHOD 09/07/2024 12:51 PM [facility] Alkaline Phosphatase 106 42 - 121 unit/L LAB CHEMISTRY METHOD 09/07/2024 12:51 PM [facility] Total Protein 5.4(L) 6.0 - 8.0 g/dL LAB CHEMISTRY METHOD 09/07/2024 12:51 PM [facility] Albumin 2.9(L) 3.2 - 5.0 g/dL LAB CHEMISTRY METHOD 09/07/2024 12:51 PM EDT [facility] Total Bilirubin 0.9 0.0 - 1.4 mg/dL LAB CHEMISTRY METHOD 09/07/2024 12:51 PM EDT [facility] Blood Venous blood specimen / Unknown Venipuncture / Unknown 09/07/2024 5:09 AM EDT 09/07/2024 11:28 AM EDT us Yaya Dobbins MD LAB BLOOD ORDERABLES Final Resu lt [facility] [address] [place] [address], [place] [phone] * (ABNORMAL) Complete blood count (09/07/2024 5:09 AM EDT) WBC 8.2 4.8 - 10.8 K/mcL LAB HEMETOLOGY METHOD 09/07/2024 1:09 PM EDT [facility] RBC 3.10(L) 3.80 - 4.80 M/mcL LAB HEMETOLOGY METHOD [facility] Hemoglobin 9.3(L) 11.5 - 16.0 g/dL LAB HEMETOLOGY METHOD 09/07/2024 1:09 PM EDT [facility] Hematocrit 29.6(L) 35.0 - 47.0 % LAB HEMETOLOGY METHOD 09/07/2024 1:09 PM EDT [facility] MCV 97.0 79.0 - 98.0 FL LAB HEMETOLOGY METHOD [facility]/07[facility]24 [facility] MCH 30.5 27.0 - 32.0 pcg LAB HEMETOLOGY METHOD 09/07/2024 1:09 PM EDT [facility] MCHC 31.4(L) 32.0 - 37.0 g/dL LAB HEMETOLOGY METHOD 09/07/2024 1:09 PM EDT [facility] RDW 13.6 11.0 - 15.0 % LAB HEMETOLOGY METHOD 09/07/2024 1:09 PM EDT [facility] Platelets 229 130 - 400 K/mcL LAB HEMETOLOGY METHOD 09/07/2024 1:09 PM EDT [facility] MPV 10.7 7.0 - 11.0 FL LAB HEMETOLOGY METHOD 09/07/2024 1:09 PM EDT [facility] NRBC 0.0 <1.0 % LAB HEMETOLOGY METHOD 09/07/2024 1:09 PM EDT [facility] NRBC Absolute 0.00 <0.10 K/mcL LAB HEMETOLOGY METHOD 09/07/2024 1:09 PM EDT [facility] Blood Venous blood specimen / Unknown Venipuncture / Unknown 09/07/2024 5:09 AM EDT 09/07/2024 11:28 AM EDT Yaya Dobbins MD LAB BLOOD ORDERABLES Final Resu lt [facility] [address] [place] [address], [place] [phone] documented in this encounter Visit Diagnoses Diagnosis Hypothyroidism, unspecified Hyperlipidemia, unspecified documented in this encounter Care Teams Mud Mill Tender Relationship Specialty Start Date End Date Yaya Dobbins MD [address] [place] [address] PCP - General Internal Medicine 09/05/24 documented as of this encounter
--- OUTSIDE RECORDS SUMMARY | 2024-11-24 16:39 | XMS_ITS | Clinical Summary ---
Author Organization [facility] Address [address] [place], [place] [id number] Phone Care Team Providers Care Fuel Testing Technician Name Role Phone Rodolfo Stein MD Primary Care Provider [phone] Allergies Active Allergy Reactions Criticality Noted Date [...] VACCINE (1 - 1-dose 75+ series) 2020 INFLUENZA VACCINE (#1) 2024 0, 12/01/2018, 12/24/2017, Additional history exists COVID-19 VACCINE ( season) 2024 06/29/2020, 06/08/2020 SMOKING STATUS SCREENING (Once After 26 Yrs) [...] topic Medical Devices Not on file Insurance * Guarantor: Merly Mendoza Account Type Relation to Patient Date of Phone Billing Address Personal/Family Self [address] [place] [id number] [facility] H[facility] O O * Guarantor: Merly Mendoza Account Type Relation to Patient Date of Phone Billing Address Personal/Family Self [address] [place] [phone] [place], [place] [address] * Guarantor: Merly Mendoza Account Type Relation to Patient Date of Phone Billing Address Personal/Family Self [address] [place] [id number] [facility] * Guarantor: Merly Mendoza Account Type Relation to Patient Date of Phone Billing Address Personal/Family Self [address] [place] [phone] [place], [place] [address] * Guarantor: Merly Mendoza Account Type Relation to Patient Date of Phone Billing Address Personal/Family Self [address] [place] [phone] [place], [place] [address] * Guarantor: Merly Mendoza Account Type Relation to Patient Date of Phone Billing Address Personal/Family Self [address] [place] [phone] [facility] * Guarantor: Merly Mendoza Account Type Relation to Patient Date of Phone Billing Address Personal/Family Self [address] [place] [id number] [facility] HMO Care Teams Fuel Testing Technician Relationship Specialty Start Date End Date Rodolfo Stein MD [address] [place] [id number] PCP - General Internal Medicine 01/22/14 Additional Source Comments The information contained in this document represents components of the legal health record. It is not the complete legal health record.[facility]
--- OUTSIDE RECORDS SUMMARY | 2024-11-24 16:39 | XMS_ITS | Encounter Summary ---
Author Organization [facility] Address [address] [place] [address] Care Team Providers Care Vocational Rehabilitation Consultant Name Role Phone Yaya Dobbins MD Primary Care Provider [phone] Encounter Details Date Type Department Care Team (Late st Contact Info) Description 09/05/2024 Lab Requisition [facility] - Main Lab 299 [facility] [place] [address] Yaya Dobbins MD [address] [place] [address] Hyperlipidemia, unspecified; Hypothyroidism, unspecified Social [...] LAB CHEMISTRY METHOD 09/05/2024 10:48 AM EDT [facility] Potassium 4.1 3.5 - 5.5 mmol/L LAB CHEMISTRY METHOD 09/05/2024 10:48 AM EDT [facility] Chloride 109 96 - 110 mmol/L [...] LAB CHEMISTRY METHOD 09/05/2024 10:48 AM EDT [facility] Total Bilirubin 0.9 0.0 - 1.4 mg/dL LAB CHEMISTRY METHOD 09/05/2024 10:48 AM [facility] Blood Venous blood specimen / Unknown Venipuncture / Unknown 09/05/2024 6:49 AM EDT 09/05/2024 9:23 AM EDT us Yaya Dobbins MD LAB BLOOD ORDERABLES Final Resu lt [facility] [address] [place] [address], [place] [phone] * (ABNORMAL) Complete blood count (09/05/2024 6:49 [...] LAB HEMETOLOGY METHOD 09/05/2024 10:27 AM EDT [facility] RDW 13.0 11.0 - 15.0 % LAB HEMETOLOGY METHOD 09/05/2024 10:27 AM EDT [facility] Platelets 194 130 - 400 K/mcL LAB HEMETOLOGY METHOD 09/05/2024 10:27 AM EDT [facility] MPV 11.2(H) 7.0 - 11.0 FL LAB HEMETOLOGY METHOD 09/05/2024 10:27 AM EDT [facility] NRBC 0.0 <1.0 % LAB HEMETOLOGY METHOD 09/05/2024 10:27 AM EDT [facility] NRBC Absolute 0.00 <0.10 K/mcL LAB HEMETOLOGY METHOD 09/05/2024 10:27 AM EDT [facility] Blood Venous blood specimen / Unknown Venipuncture / Unknown 09/05/2024 6:49 AM EDT 09/05/2024 9:23 AM EDT us Yaya Dobbins MD LAB BLOOD ORDERABLES Final Resu lt [facility] [address] [place] [address], documented in this encounter Visit Diagnoses Diagnosis Hyperlipidemia, unspecified Hypothyroidism, unspecified documented in this encounter Care Teams Vocational Rehabilitation Consultant Relationship Specialty Start Date End Date Yaya Dobbins MD [address] [place] [address] PCP - General Internal Medicine 09/05/24 documented as of this encounter
--- OUTSIDE RECORDS SUMMARY | 2024-11-24 16:39 | XMS_ITS | Encounter Summary ---
Author Organization [facility] Address [address] [place] [address] Care Team Providers Care Locomotive Crane Operator Helper Name Role Phone Yaya Dobbins MD Primary Care Provider Encounter Details Date Type Department Care Team (Late st Contact Info) Description 09/16/2024 Lab Requisition [facility] - Main Lab 299 [facility] [place] [address] Yaya Dobbins MD [address] [place] [address] Hyperlipidemia, unspecified Social History Tobacco [...] LAB CHEMISTRY METHOD 09/17/2024 9:16 AM EDT [facility] Potassium 4.1 3.5 - 5.5 mmol/L LAB CHEMISTRY METHOD 09/17/2024 9:16 AM EDT [facility] Chloride 114(H) 96 - 110 mmol/L LAB CHEMISTRY METHOD 09/17/2024 9:16 AM [facility] CO2 26 21 - 32 mmol/L LAB CHEMISTRY METHOD 09/17/2024 9:16 AM [facility] Anion Gap 5 3 - 11 LAB CHEMISTRY METHOD 09/17/2024 9:16 AM [facility] Glucose 77 70 - 100 mg/dL LAB CHEMISTRY METHOD 09/17/2024 9:16 AM [facility] BUN 11 5 - 25 mg/dL LAB CHEMISTRY METHOD 09/17/2024 9:16 AM [facility] Creatinine 0.65 0.50 - 1.10 mg/dL LAB CHEMISTRY METHOD 09/17/2024 9:16 AM [facility] eGFR 90 >=60 mL/min/1. 73m2 LAB CHEMISTRY METHOD 09/17/2024 9:16 AM [facility] Comment:Calculation based on the Chronic Kidney Disease Epidemiology Collaboration (CKD-EPI) equation refit without adjustment for race. BUN/Creatinine Ratio 16.9 LAB CHEMISTRY METHOD 09/17/2024 9:16 AM [facility] Calcium 9.2 8.5 - 10.5 mg/dL LAB CHEMISTRY METHOD 09/17/2024 9:16 AM [facility] Blood Venous blood specimen / Unknown Venipuncture / Unknown 09/17/2024 4:51 AM EDT 09/17/2024 7:42 AM EDT us Yaya Dobbins MD LAB BLOOD ORDERABLES Final Resu lt [facility] LAB [address] [place] [address], * (ABNORMAL) Complete blood count (09/17/2024 4:51 AM EDT) WBC 5.9 4.8 - 10.8 K/[facility] LAB HEMETOLOGY METHOD 09/17/2024 8:39 AM [facility] RBC 3.30(L) 3.80 - 4.80 M/mcL LAB HEMETOLOGY METHOD 09/17/2024 8:39 AM [facility] Hemoglobin 10.1(L) 11.5 - 16.0 g/dL LAB HEMETOLOGY METHOD 09/17/2024 8:39 AM [facility] Hematocrit 32.4(L) 35.0 - 47.0 % LAB HEMETOLOGY METHOD 09/17/2024 8:39 AM [facility] MCV 99.7(H) 79.0 - 98.0 FL LAB HEMETOLOGY METHOD 09/17/2024 8:39 AM [facility] MCH 31.1 27.0 - 32.0 pcg LAB HEMETOLOGY METHOD 09/17/2024 8:39 AM [facility] MCHC 31.2(L) 32.0 - 37.0 g/dL LAB HEMETOLOGY METHOD 09/17/2024 8:39 AM [facility] RDW 15.2(H) 11.0 - 15.0 % LAB HEMETOLOGY METHOD 09/17/2024 8:39 AM [facility] Platelets 324 130 - 400 K/mcL LAB HEMETOLOGY METHOD 09/17/2024 8:39 AM [facility] MPV 10.1 7.0 - 11.0 FL LAB HEMETOLOGY METHOD 09/17/2024 8:39 AM [facility] NRBC 0.0 <1.0 % LAB HEMETOLOGY METHOD 09/17/2024 8:39 AM [facility] NRBC Absolute 0.00 <0.10 K/mcL LAB HEMETOLOGY METHOD 09/17/2024 8:39 AM [facility] Blood Venous blood specimen / Unknown Venipuncture / Unknown 09/17/2024 4:51 AM EDT 09/17/2024 7:42 AM EDT Yaya Dobbins MD LAB BLOOD ORDERABLES Final Resu lt [facility] ([facility] [address] [place] [address], documented in this encounter Visit Diagnoses Diagnosis Hyperlipidemia, unspecified documented in this encounter Care Teams Locomotive Crane Operator Helper Relationship Specialty Start Date End Date Yaya Dobbins MD [address] [place] [address] PCP - General Internal Medicine 09/05/24 documented as of this encounter
--- OUTSIDE RECORDS SUMMARY | 2024-11-24 16:39 | XMS_ITS | Encounter Summary ---
Author Organization [facility] Address [address] [place] [address] Care Team Providers Care Regional Hr Manager Name Role Phone Yaya Dobbins MD Primary Care Provider [phone] Encounter Details Date Type Department Care Team (Late st Contact Info) Description 09/19/2024 Lab Requisition [facility] - Main Lab 299 [facility] [place] [address] Yaya Dobbins MD [address] [place] [address] Hyperlipidemia, unspecified Social History Tobacco [...] LAB CHEMISTRY METHOD 09/21/2024 11:20 AM T [facility] Potassium 4.0 3.5 - 5.5 mmol/L LAB CHEMISTRY METHOD 09/21/2024 11:20 AM EDT [facility] Chloride 114(H) 96 - 110 mmol/L LAB CHEMISTRY METHOD 09/21/2024 11:20 AM [facility] CO2 22 21 - 32 mmol/L LAB CHEMISTRY METHOD 09/21/2024 11:20 AM [facility] Anion Gap 8 3 - 11 LAB CHEMISTRY METHOD 09/21/2024 11:20 AM [facility] Glucose 82 70 - 100 mg/dL LAB CHEMISTRY METHOD 09/21/2024 11:20 AM [facility] BUN 13 5 - 25 mg/dL LAB CHEMISTRY METHOD 09/21/2024 11:20 AM [facility] Creatinine 0.61 0.50 - 1.10 mg/dL LAB CHEMISTRY METHOD 09/21/2024 11:20 AM [facility] LAB eGFR 92 >=60 mL/min/1. 73m2 LAB CHEMISTRY METHOD 09/21/2024 11:20 AM [facility] Comment:Calculation based on the Chronic Kidney Disease Epidemiology Collaboration (CKD-EPI) equation refit without adjustment for race. BUN/Creatinine Ratio 21.3 LAB CHEMISTRY METHOD 09/21/2024 11:20 AM [facility] Calcium 9.0 8.5 - 10.5 mg/dL LAB CHEMISTRY METHOD 09/21/2024 11:20 AM [facility] AST (SGOT) 40 10 - 42 unit/L LAB CHEMISTRY METHOD 09/21/2024 11:20 AM [facility] ALT (SGPT) 31 10 - 60 unit/L LAB CHEMISTRY METHOD 09/21/2024 11:20 AM [facility] Alkaline Phosphatase 140(H) 42 - 121 unit/L LAB CHEMISTRY METHOD 09/21/2024 11:20 AM [facility] Total Protein 5.3(L) 6.0 - 8.0 g/dL LAB CHEMISTRY METHOD 09/21/2024 11:20 AM [facility] Albumin 3.1(L) 3.2 - 5.0 g/dL LAB CHEMISTRY METHOD 09/21/2024 11:20 AM [facility] Total Bilirubin 0.5 0.0 - 1.4 mg/dL LAB CHEMISTRY METHOD 09/21/2024 11:20 AM [facility] Blood Venous blood specimen / Unknown Venipuncture / Unknown 09/21/2024 4:46 AM EDT 09/21/2024 11:05 AM EDT us Yaya Dobbins MD LAB BLOOD ORDERABLES Final Resu lt [facility] [address] [place] [address], * (ABNORMAL) Complete blood count (09/21/2024 4:46 AM EDT) WBC 5.6 4.8 - 10.8 K/mcL LAB HEMETOLOGY METHOD 09/21/2024 10:22 AM [facility] RBC 3.10(L) 3.80 - 4.80 M/mcL LAB HEMETOLOGY METHOD 09/21/2024 10:22 AM [facility] Hemoglobin 9.8(L) 11.5 - 16.0 g/dL LAB HEMETOLOGY METHOD 09/21/2024 10:22 AM [facility] Hematocrit 31.4(L) 35.0 - 47.0 % LAB HEMETOLOGY METHOD 09/21/2024 10:22 AM [facility] LAB MCV 101.0(H) 79.0 - 98.0 FL LAB HEMETOLOGY METHOD 09/21/2024 10:22 AM [facility] MCH 31.5 27.0 - 32.0 pcg LAB HEMETOLOGY METHOD 09/21/2024 10:22 AM [facility] MCHC 31.2(L) 32.0 - 37.0 g/dL LAB HEMETOLOGY METHOD 09/21/2024 10:22 AM EDT [facility] RDW 15.7(H) 11.0 - 15.0 % LAB HEMETOLOGY METHOD 09/21/2024 10:22 AM EDT [facility] Platelets 273 130 - 400 K/mcL LAB HEMETOLOGY METHOD 09/21/2024 10:22 AM EDT [facility] MPV 10.6 7.0 - 11.0 FL LAB HEMETOLOGY METHOD 09/21/2024 10:22 AM EDT [facility] NRBC 0.0 <1.0 % LAB HEMETOLOGY METHOD 09/21/2024 10:22 AM EDT [facility] NRBC Absolute 0.00 <0.10 K/mcL LAB HEMETOLOGY METHOD 09/21/2024 10:22 AM EDT [facility] Blood Venous blood specimen / Unknown Venipuncture / Unknown 09/21/2024 4:46 AM EDT 09/21/2024 10:02 AM EDT Yaya Dobbins MD LAB BLOOD ORDERABLES Final Resu lt [facility] [address] [place] [address], documented in this encounter Visit Diagnoses Diagnosis Hyperlipidemia, unspecified documented in this encounter Care Teams Regional Hr Manager Relationship Specialty Start Date End Date Yaya Dobbins MD [address] [place] [address] PCP - General Internal Medicine 09/05/24 documented as of this encounter
--- OUTSIDE RECORDS SUMMARY | 2024-11-24 16:39 | XMS_ITS | Encounter Summary ---
Author Organization [facility] Address [address] [place] [address] Care Team Providers Care Photoengraving Etcher Name Role Phone Yaya Dobbins MD Primary Care Provider [phone] Encounter Details Date Type Department Care Team (Late st Contact Info) Description 09/11/2024 Lab Requisition [facility] - Main Lab [address] [facility] [employer] [place] [address] Yaya Dobbins MD [address] [place] [address] Hyperlipidemia, unspecified Social History Tobacco [...] LAB CHEMISTRY METHOD 09/14/2024 1:49 PM EDT [facility] Potassium 4.0 3.5 - 5.5 mmol/L LAB CHEMISTRY METHOD 09/14/2024 1:49 PM EDT [facility] Chloride 112(H) 96 - 110 mmol/L LAB CHEMISTRY METHOD 09/14/2024 1:49 PM [facility] CO2 26 21 - 32 mmol/L LAB CHEMISTRY METHOD 09/14/2024 1:49 PM [facility] Anion Gap 7 3 - 11 LAB CHEMISTRY METHOD 09/14/2024 1:49 PM [facility] Glucose 72 70 - 100 mg/dL LAB CHEMISTRY METHOD 09/14/2024 1:49 PM [facility] BUN 12 5 - 25 mg/dL LAB CHEMISTRY METHOD 09/14/2024 1:49 PM [facility] Creatinine 0.64 0.50 - 1.10 mg/dL LAB CHEMISTRY METHOD 09/14/2024 1:49 PM [facility] eGFR 91 >=60 mL/min/1. 73m2 LAB CHEMISTRY METHOD 09/14/2024 1:49 PM [facility] Comment:Calculation based on the Chronic Kidney Disease Epidemiology Collaboration (CKD-EPI) equation refit without adjustment for race. BUN/Creatinine Ratio 18.8 LAB CHEMISTRY METHOD 09/14/2024 1:49 PM [facility] Calcium 9.0 8.5 - 10.5 mg/dL LAB CHEMISTRY METHOD 09/14/2024 1:49 PM [facility] AST (SGOT) 43(H) 10 - 42 unit/L LAB CHEMISTRY METHOD 09/14/2024 1:49 PM [facility] ALT (SGPT) 31 10 - 60 unit/L LAB CHEMISTRY METHOD 09/14/2024 1:49 PM [facility] Alkaline Phosphatase 125(H) 42 - 121 unit/L LAB CHEMISTRY METHOD 09/14/2024 1:49 PM [facility] Total Protein 5.3(L) 6.0 - 8.0 g/dL LAB CHEMISTRY METHOD 09/14/2024 1:49 PM [facility] Albumin 2.9(L) 3.2 - 5.0 g/dL LAB CHEMISTRY METHOD 09/14/2024 1:49 PM EDT [facility] Total Bilirubin 0.5 0.0 - 1.4 mg/dL LAB CHEMISTRY METHOD 09/14/2024 1:49 PM [facility] Blood Venous blood specimen / Unknown Venipuncture / Unknown 09/14/2024 4:53 AM EDT 09/14/2024 10:55 AM EDT us Yaya Dobbins MD LAB BLOOD ORDERABLES Final Resu lt [facility] [address] [place] [address], * (ABNORMAL) Complete blood count (09/14/2024 4:53 AM EDT) WBC 7.1 4.8 - 10.8 K/mcL LAB HEMETOLOGY METHOD 09/14/2024 11:19 AM [facility] RBC 3.20(L) 3.80 - 4.80 M/mcL LAB HEMETOLOGY METHOD 09/14/2024 11:19 AM [facility] Hemoglobin 10.0(L) 11.5 - 16.0 g/dL LAB HEMETOLOGY METHOD 09/14/2024 11:19 AM [facility] Hematocrit 32.0(L) 35.0 - 47.0 % LAB HEMETOLOGY METHOD 09/14/2024 11:19 AM [facility] MCV 100.6(H) 79.0 - 98.0 FL LAB HEMETOLOGY METHOD 09/14/2024 11:19 AM [facility] MCH 31.4 27.0 - 32.0 pcg LAB HEMETOLOGY METHOD 09/14/2024 11:19 AM [facility] MCHC 31.3(L) 32.0 - 37.0 g/dL LAB HEMETOLOGY METHOD 09/14/2024 11:19 AM EDT [facility] RDW 14.9 11.0 - 15.0 % LAB HEMETOLOGY METHOD 09/14/2024 11:19 AM EDT [facility] Platelets 321 130 - 400 K/mcL LAB HEMETOLOGY METHOD 09/14/2024 11:19 AM EDT [facility] MPV 10.2 7.0 - 11.0 FL LAB HEMETOLOGY METHOD 09/14/2024 11:19 AM EDT [facility] NRBC 0.0 <1.0 % LAB HEMETOLOGY METHOD 09/14/2024 11:19 AM EDT [facility] NRBC Absolute 0.00 <0.10 K/mcL LAB HEMETOLOGY METHOD 09/14/2024 11:19 AM EDT [facility] Blood Venous blood specimen / Unknown Venipuncture / Unknown 09/14/2024 4:53 AM EDT 09/14/2024 10:54 AM EDT Yaya Dobbins MD LAB BLOOD ORDERABLES Final Resu lt [facility] [address] [place] [address], documented in this encounter Visit Diagnoses Diagnosis Hyperlipidemia, unspecified documented in this encounter Care Teams Photoengraving Etcher Relationship Specialty Start Date End Date Yaya Dobbins MD [address] [place] [address] PCP - General Internal Medicine 09/05/24 documented as of this encounter
--- OUTSIDE RECORDS SUMMARY | 2024-11-24 16:39 | XMS_ITS | Clinical Summary ---
Author Organization [address] Address [address] [place] [address] Phone Care Team Providers Care Poultry Raiser Name Role Phone Yaya Dobbins MD Primary Care Provider [phone] Encounters Date Type Department Care Team Description 09/19/2024 Lab Requisition [facility] Lab [address] [place] [address] Yaya Dobbins MD Hyperlipidemia, unspecified 09/16/2024 Lab Requisition [facility] Lab [address] [place] [address] Yaya Dobbins MD Hyperlipidemia, unspecified 09/11/2024 Lab Requisition [facility] Lab [address] [place] [address] Yaya Dobbins MD Hyperlipidemia, unspecified 09/09/2024 Lab Requisition [facility] Lab [address] [place] [address] Yaya Dobbins MD Hyperlipidemia, unspecified 09/07/2024 Lab Requisition [facility] Lab [address] [place] [address] Yaya Dobbins MD Hypothyroidism, unspecified; Hyperlipidemia, unspecified 09/05/2024 Lab Requisition [facility] Lab [address] [place] [address] Yaya Dobbins MD Hyperlipidemia, unspecified; Hypothyroidism, unspecified [...] of6 resultswithin the time period is included. [facility] WBC 5.6 4.8 - 10.8 K/[facility] LAB HEMETOLOGY METHOD 09/21/2024 10:22 AM EDT [facility] RBC 3.10(L) [...] 09/21/2024 10:22 AM [facility] RDW 15.7(H) 11.0 - 15.0 % LAB HEMETOLOGY METHOD 09/21/2024 10:22 AM [facility] Platelets 273 130 - 400 K/mcL LAB HEMETOLOGY METHOD 09/21/2024 10:22 AM [facility] MPV 10.6 7.0 - 11.0 FL LAB HEMETOLOGY METHOD 09/21/2024 10:22 AM [facility] NRBC 0.0 <1.0 % LAB HEMETOLOGY METHOD 09/21/2024 10:22 AM [facility] NRBC Absolute 0.00 <0.10 K/mcL LAB HEMETOLOGY METHOD 09/21/2024 10:22 AM [facility] Blood Venous blood specimen / Unknown Venipuncture / Unknown 09/21/2024 4:46 AM EDT 09/21/2024 10:02 AM EDT us Yaya Dobbins MD LAB BLOOD ORDERABLES Final Resu lt [facility] [address] [place] [address], [place] [phone] * (ABNORMAL) Comprehensive metabolic panel (09/21/2024 4:46 AM EDT) Only the most recent of4 resultswithin the time period is included. Sodium 144 133 - 145 mmol/L LAB CHEMISTRY METHOD 09/21/2024 11:20 AM [facility] Potassium 4.0 3.5 - 5.5 mmol/L LAB CHEMISTRY METHOD 09/21/2024 11:20 AM [facility] Chloride 114(H) 96 - 110 [...] Resu lt [facility] [address] [place] [address], * (ABNORMAL) Basic metabolic panel (09/17/2024 4:51 AM EDT) Only the most recent of2 resultswithin the time period is included. Sodium 145 133 - 145 mmol/L LAB CHEMISTRY METHOD 09/17/2024 9:16 AM [facility] Potassium 4.1 3.5 - 5.5 mmol/L LAB CHEMISTRY METHOD 09/17/2024 9:16 AM [facility] Chloride 114(H) 96 - 110 mmol/L LAB CHEMISTRY METHOD 09/17/2024 9:16 AM [facility] CO2 26 21 - 32 mmol/L LAB CHEMISTRY METHOD 09/17/2024 9:16 AM [facility] Anion Gap 5 3 - 11 LAB CHEMISTRY METHOD 09/17/2024 9:16 AM [facility] Glucose 77 70 - 100 mg/dL LAB CHEMISTRY METHOD 09/17/2024 9:16 AM [facility] BUN 11 5 - 25 mg/dL LAB CHEMISTRY METHOD 09/17/2024 9:16 AM [facility] Creatinine 0.65 0.50 - 1.10 mg/dL LAB CHEMISTRY METHOD 09/17/2024 9:16 AM [facility] eGFR 90 >=60 mL/min/1. 73m2 LAB CHEMISTRY METHOD 09/17/2024 9:16 AM [facility] Comment:Calculation based on the Chronic Kidney Disease Epidemiology Collaboration (CKD-EPI) equation refit without adjustment for race. BUN/Creatinine Ratio 16.9 LAB CHEMISTRY METHOD 09/17/2024 9:16 AM [facility] Calcium 9.2 8.5 - 10.5 mg/dL LAB CHEMISTRY METHOD 09/17/2024 9:16 AM [facility] Blood Venous blood specimen / Unknown Venipuncture / Unknown 09/17/2024 4:51 AM EDT 09/17/2024 7:42 AM EDT us Yaya Dobbins MD LAB BLOOD ORDERABLES Final Resu lt [facility] [address] [place] [address], [place] [phone] from Last 3 Months Insurance [facility] Care Teams Poultry Raiser Relationship Specialty Start Date End Date Yaya Dobbins MD [address] [place] [id number] PCP - General Internal Medicine 09/05/24
[2024-11-24 16:42] LABS: Hematocrit 39.9 % (37.0-47.0); Hemoglobin 13.5 g/dl (12.0-16.0); Mean Corpuscular HGB Conc 33.8 g/dl (31.0-35.0); Mean Corpuscular Hemoglobin 31.3 pg (27.0-33.0); Mean Corpuscular Volume 92.4 fL (80.0-98.0); NRBC Abs Auto 0.000 X10*3/uL (0.0-0.012); NRBC Pct Auto 0.0 /100WBC (0.0-0.2); Platelet Count 184 X10*3/uL (160-400); Red Blood Count 4.32 X10*6/uL (4.20-5.50); White Blood Count 10.8 X10*3/uL (4.8-10.8)
[2024-11-24 16:46] LABS: Appearance Urine Clear; Glucose Urine UA Negative (Negative); PH 6.5 (5.0-9.0); Specific Gravity - Urine 1.015 (1.005-1.025); UMIC TRIGGER UACC YES
[2024-11-24 16:49] LABS: UACC Culture Trigger YES
[2024-11-24 17:04] LABS: Total Hemoglobin (HGBA1C) 3501.0883 umol/L
[2024-11-24 17:09] LABS: Alanine Aminotransferase 24 U/L (0-31); Albumin Level 4.2 g/dL (3.5-5.0); Alkaline Phosphatase 84 U/L (39-117); Anion Gap 12 (12-20); Aspartate Amino Transferase 47 U/L (5-31); Blood Urea Nitrogen 9 mg/dL (9-16); Calcium 9.4 mg/dL (8.4-10.2); Carbon Dioxide 25 mmol/L (22-29); Chloride 108 mmol/L (96-108); Estimated Glomerular Filt Rate > 60; Magnesium 2.0 mg/dL (1.6-2.6); Potassium 4.0 mmol/L (3.3-5.1); Sodium 141 mmol/L (135-145); Total Protein 7.0 g/dL (6.5-8.0)
[2024-11-24 17:10] LABS: Microalbum/Creatinine Ratio Ur 32.8 ug/mg cr (<30)
[2024-11-24 17:27] LABS: Folate 13.8 ng/mL (> or = 4.0); Vitamin B12 319 pg/mL (200-900)
[2024-11-24 18:18] LABS: Free T4 (Free Thyroxine) 0.71 ng/dL (0.71-1.85)
[2024-11-25 07:40] LABS: Chlamydia pneumoniae PCR Not Detected (Not Detect.); Coronavirus 229E PCR Not Detected (Not Detect.); Coronavirus HKU1 PCR Not Detected (Not Detect.); Coronavirus NL63 PCR Not Detected (Not Detect.); Coronavirus OC43 PCR Not Detected (Not Detect.); RSV PCR Not Detected (Not Detect.); Rhino/Enterovirus PCR Detected (Not Detect.)
[2024-11-25 07:48] LABS: Influenza A H1 PCR Not Detected (Not Detect.); Influenza A H1-2009 PCR Not Detected (Not Detect.); Influenza A H3 PCR Not Detected (Not Detect.); SARS-CoV-2 PCR Not Detected (Not Detect.)
== END 2024-11-24 13:32 | disposition home or self-care (01) ==
LOC: HO.HMGCX 13:31
PROVIDERS: PCP Physician Assistant Medical; Visit Provider Physician Assistant Medical
DX: Z00.00 Encounter for general adult medical examination without abnormal findings (principal); E11.9 Type 2 diabetes mellitus without complications; R05.9 Cough, unspecified
CPT/HCPCS: 36415; 71046; 80048; 80076; 81001; 82043; 82306; 82570; 82607; 82746; 83036; 83735; 84439; 84443; 85027; 87086; 87633

== ENCOUNTER → 2024-11-24 13:37 | Outpatient (BNV) | payer MEDICARE, SELFPAY | PROVIDERS: PCP Physician Assistant Medical; Visit Provider Radiology Diagnostic Radiology | DX: R05.9 Cough, unspecified (principal) | CPT/HCPCS: 71046 ==

== ENCOUNTER 2024-11-28 13:27 | Outpatient (REF) | payer MEDICARE, SELFPAY ==
--- OUTSIDE RECORDS SUMMARY | 2024-11-28 13:31 | XMS_ITS | Encounter Summary ---
Author Organization [facility] Address [address] [place] [address] Care Team Providers Care Forest Pathology Associate Professor Name Role Phone Yaya Dobbins MD Primary Care Provider [phone] Encounter Details Date Type Department Care Team (Late st Contact Info) Description 09/19/2024 Lab Requisition [facility] - Main Lab [address] [facility] [place] [address] Yaya Dobbins MD [address] [place] [address] Hyperlipidemia, unspecified Social History Tobacco [...] LAB CHEMISTRY METHOD 09/21/2024 11:20 AM T [facility] Potassium 4.0 3.5 - 5.5 mmol/L LAB CHEMISTRY METHOD 09/21/2024 11:20 AM EDT [facility] Chloride 114(H) 96 - 110 mmol/L LAB CHEMISTRY METHOD 09/21/2024 11:20 AM [facility] CO2 22 21 - 32 mmol/L LAB CHEMISTRY METHOD 09/21/2024 11:20 AM [facility] Anion Gap 8 3 - 11 LAB CHEMISTRY METHOD 09/21/2024 11:20 AM [facility] Glucose 82 70 - 100 mg/dL LAB CHEMISTRY METHOD 09/21/2024 11:20 AM [facility] BUN 13 5 - 25 mg/dL LAB CHEMISTRY METHOD 09/21/2024 11:20 AM [facility] Creatinine 0.61 0.50 - 1.10 mg/dL LAB CHEMISTRY METHOD 09/21/2024 11:20 AM [facility] eGFR 92 >=60 mL/min/1. 73m2 LAB CHEMISTRY METHOD 09/21/2024 11:20 AM [facility] Comment:Calculation based on the Chronic Kidney Disease Epidemiology Collaboration (CKD-EPI) equation refit without adjustment for race. BUN/Creatinine Ratio 21.3 LAB CHEMISTRY METHOD 09/21/2024 11:20 AM [facility] Calcium 9.0 8.5 - 10.5 mg/dL LAB CHEMISTRY METHOD 09/21/2024 11:20 AM [facility] AST (SGOT) 40 10 - 42 unit/L LAB CHEMISTRY METHOD 09/21/2024 11:20 AM [facility] ALT (SGPT) 31 10 - 60 unit/L LAB CHEMISTRY METHOD 09/21/2024 11:20 AM [facility] Alkaline Phosphatase 140(H) 42 - 121 unit/L LAB CHEMISTRY METHOD 09/21/2024 11:20 AM [facility] Total Protein 5.3(L) 6.0 - 8.0 g/dL LAB CHEMISTRY METHOD 09/21/2024 11:20 AM [facility] Albumin 3.1(L) 3.2 - 5.0 g/dL LAB CHEMISTRY METHOD 09/21/2024 11:20 AM [facility] Total Bilirubin 0.5 0.0 - 1.4 mg/dL LAB CHEMISTRY METHOD 09/21/2024 11:20 AM [facility] Blood Venous blood specimen / Unknown Venipuncture / Unknown 09/21/2024 4:46 AM EDT 09/21/2024 11:05 AM EDT us Yaya Dobbins MD LAB BLOOD ORDERABLES Final Resu lt [facility] [address] [place] [address], * (ABNORMAL) Complete blood count (09/21/2024 4:46 AM EDT) WBC 5.6 4.8 - 10.8 K/mcL LAB HEMETOLOGY METHOD 09/21/2024 10:22 AM [facility] RBC 3.10(L) 3.80 - 4.80 M/mcL LAB HEMETOLOGY METHOD 09/21/2024 10:22 AM [facility] Hemoglobin 9.8(L) 11.5 - 16.0 g/dL LAB HEMETOLOGY METHOD 09/21/2024 10:22 AM [facility] Hematocrit 31.4(L) 35.0 - 47.0 % LAB HEMETOLOGY METHOD 09/21/2024 10:22 AM [facility] MCV 101.0(H) 79.0 - 98.0 FL LAB HEMETOLOGY METHOD 09/21/2024 10:22 AM [facility] MCH 31.5 27.0 - 32.0 pcg LAB HEMETOLOGY METHOD 09/21/2024 10:22 AM [facility] MCHC 31.2(L) 32.0 - 37.0 g/dL LAB HEMETOLOGY METHOD 09/21/2024 10:22 AM EDT [facility] RDW 15.7(H) 11.0 - 15.0 % LAB HEMETOLOGY METHOD 09/21/2024 10:22 AM EDT [facility] Platelets 273 130 - 400 K/mcL LAB HEMETOLOGY METHOD 09/21/2024 10:22 AM EDT [facility] MPV 10.6 7.0 - 11.0 FL LAB HEMETOLOGY METHOD 09/21/2024 10:22 AM EDT [facility] NRBC 0.0 <1.0 % LAB HEMETOLOGY METHOD 09/21/2024 10:22 AM EDT [facility] NRBC Absolute 0.00 <0.10 K/mcL LAB HEMETOLOGY METHOD 09/21/2024 10:22 AM EDT [facility] Blood Venous blood specimen / Unknown Venipuncture / Unknown 09/21/2024 4:46 AM EDT 09/21/2024 10:02 AM EDT Yaya Dobbins MD LAB BLOOD ORDERABLES Final Resu lt [facility] [address] [place] [address], documented in this encounter Visit Diagnoses Diagnosis Hyperlipidemia, unspecified documented in this encounter Care Teams Forest Pathology Associate Professor Relationship Specialty Start Date End Date Yaya Dobbins MD [address] [place] [address] PCP - General Internal Medicine 09/05/24 documented as of this encounter
--- OUTSIDE RECORDS SUMMARY | 2024-11-28 13:31 | XMS_ITS | Clinical Summary ---
Author Organization [address] Address [address] [place] [address] Phone Care Team Providers Care Agency Sales Development Associate Name Role Phone Yaya Dobbins MD Primary Care Provider [phone] Encounters Date Type Department Care Team Description 09/19/2024 Lab Requisition [facility] Lab [address] [place] [address] Yaya Dobbins MD Hyperlipidemia, unspecified 09/16/2024 Lab Requisition [facility] Lab [address] [place] [address] Yaya Dobbins MD Hyperlipidemia, unspecified 09/11/2024 Lab Requisition [facility] [address] [place] [address] Yaya Dobbins MD Hyperlipidemia, unspecified 09/09/2024 Lab Requisition [facility] Lab [address] [place] [address] Yaya Dobbins MD Hyperlipidemia, unspecified 09/07/2024 Lab Requisition [facility] Lab [address] [place] [address] Yaya Dobbins MD Hypothyroidism, unspecified; Hyperlipidemia, unspecified 09/05/2024 Lab Requisition [facility] Lab [address] [place] [address] Yaya Dobbins MD Hyperlipidemia, unspecified; Hypothyroidism, unspecified [...] of6 resultswithin the time period is included. [facility] WBC 5.6 4.8 - 10.8 K/[facility] LAB HEMETOLOGY METHOD 09/21/2024 10:22 AM EDT [facility] RBC 3.10(L) 3.80 - 4.80 M/mcL LAB HEMETOLOGY METHOD 09/21/2024 10:22 AM [facility] Hemoglobin 9.8(L) 11.5 - 16.0 g/dL LAB HEMETOLOGY METHOD 09/21/2024 10:22 AM [facility] Hematocrit 31.4(L) 35.0 - 47.0 % LAB HEMETOLOGY METHOD 09/21/2024 10:22 AM [facility] MCV 101.0(H) 79.0 - 98.0 FL LAB HEMETOLOGY METHOD 09/21/2024 10:22 AM [facility] MCH 31.5 27.0 - 32.0 pcg LAB HEMETOLOGY METHOD 09/21/2024 10:22 AM [facility] MCHC 31.2(L) 32.0 - 37.0 g/dL LAB HEMETOLOGY METHOD 09/21/2024 10:22 AM [facility] RDW 15.7(H) 11.0 - 15.0 % LAB HEMETOLOGY METHOD 09/21/2024 10:22 AM [facility] Platelets 273 130 - 400 K/mcL LAB HEMETOLOGY METHOD 09/21/2024 10:22 AM [facility] MPV 10.6 7.0 - 11.0 FL LAB HEMETOLOGY METHOD 09/21/2024 10:22 AM [facility] NRBC 0.0 <1.0 % LAB HEMETOLOGY METHOD 09/21/2024 10:22 AM [facility] NRBC Absolute 0.00 <0.10 K/mcL LAB HEMETOLOGY METHOD 09/21/2024 10:22 AM [facility] Blood Venous blood specimen / Unknown Venipuncture / Unknown 09/21/2024 4:46 AM EDT 09/21/2024 10:02 AM EDT us Yaya Dbobins MD LAB BLOOD ORDERABLES Final Resu lt [facility] [address] [place] [address], [place] [phone] * (ABNORMAL) Comprehensive metabolic panel (09/21/2024 4:46 AM EDT) Only the most recent of4 resultswithin the time period is included. Sodium 144 133 - 145 mmol/L LAB CHEMISTRY METHOD 09/21/2024 11:20 AM [facility] Potassium 4.0 3.5 - 5.5 mmol/L LAB CHEMISTRY METHOD 09/21/2024 11:20 AM [facility] Chloride 114(H) 96 - 110 mmol/L LAB CHEMISTRY METHOD 09/21/2024 11:20 AM [facility] CO2 22 21 - 32 mmol/L LAB CHEMISTRY METHOD 09/21/2024 11:20 AM [facility] Anion Gap 8 3 - 11 LAB CHEMISTRY METHOD 09/21/2024 11:20 AM [facility] Glucose 82 70 - 100 mg/dL LAB CHEMISTRY METHOD 09/21/2024 11:20 AM [facility] BUN 13 5 - 25 mg/dL LAB CHEMISTRY METHOD 09/21/2024 11:20 AM [facility] Creatinine 0.61 0.50 - 1.10 mg/dL LAB CHEMISTRY METHOD 09/21/2024 11:20 AM [facility] eGFR 92 >=60 mL/min/1. 73m2 LAB CHEMISTRY METHOD 09/21/2024 11:20 AM [facility] Comment:Calculation based on the Chronic Kidney Disease Epidemiology Collaboration (CKD-EPI) equation refit without adjustment for race. BUN/Creatinine Ratio 21.3 LAB CHEMISTRY METHOD 09/21/2024 11:20 AM [facility] Calcium 9.0 8.5 - 10.5 mg/dL LAB CHEMISTRY METHOD 09/21/2024 11:20 AM [facility] AST (SGOT) 40 10 - 42 unit/L LAB CHEMISTRY METHOD 09/21/2024 11:20 AM [facility] ALT (SGPT) 31 10 - 60 unit/L LAB CHEMISTRY METHOD 09/21/2024 11:20 AM [facility] Alkaline Phosphatase 140(H) 42 - 121 unit/L LAB CHEMISTRY METHOD 09/21/2024 11:20 AM [facility] Total Protein 5.3(L) 6.0 - 8.0 g/dL LAB CHEMISTRY METHOD 09/21/2024 11:20 AM [facility] Albumin 3.1(L) 3.2 - 5.0 g/dL LAB CHEMISTRY METHOD 09/21/2024 11:20 AM [facility] Total Bilirubin 0.5 0.0 - 1.4 mg/dL LAB CHEMISTRY METHOD 09/21/2024 11:20 AM [facility] Blood Venous blood specimen / Unknown Venipuncture / Unknown 09/21/2024 4:46 AM EDT 09/21/2024 11:05 AM EDT us Yaya Dobbins MD LAB BLOOD ORDERABLES Final Resu lt [facility] [address] [place] [address], * (ABNORMAL) Basic metabolic panel (09/17/2024 4:51 AM EDT) Only the most recent of2 resultswithin the time period is included. Sodium 145 133 - 145 mmol/L LAB CHEMISTRY METHOD 09/17/2024 9:16 AM [facility] Potassium 4.1 3.5 - 5.5 mmol/L LAB CHEMISTRY METHOD 09/17/2024 9:16 AM [facility] Chloride 114(H) 96 - 110 mmol/L LAB CHEMISTRY METHOD 09/17/2024 9:16 AM [facility] CO2 26 21 - 32 mmol/L LAB CHEMISTRY METHOD 09/17/2024 9:16 AM [facility] Anion Gap 5 3 - 11 LAB CHEMISTRY METHOD 09/17/2024 9:16 AM [facility] Glucose 77 70 - 100 mg/dL LAB CHEMISTRY METHOD 09/17/2024 9:16 AM [facility] BUN 11 5 - 25 mg/dL LAB CHEMISTRY METHOD 09/17/2024 9:16 AM [facility] Creatinine 0.65 0.50 - 1.10 mg/dL LAB CHEMISTRY METHOD 09/17/2024 9:16 AM [facility] eGFR 90 >=60 mL/min/1. 73m2 LAB CHEMISTRY METHOD 09/17/2024 9:16 AM [facility] Comment:Calculation based on the Chronic Kidney Disease Epidemiology Collaboration (CKD-EPI) equation refit without adjustment for race. BUN/Creatinine Ratio 16.9 LAB CHEMISTRY METHOD 09/17/2024 9:16 AM [facility] Calcium 9.2 8.5 - 10.5 mg/dL LAB CHEMISTRY METHOD 09/17/2024 9:16 AM [facility] Blood Venous blood specimen / Unknown Venipuncture / Unknown 09/17/2024 4:51 AM EDT 09/17/2024 7:42 AM EDT us Yaya Dobbins MD LAB BLOOD ORDERABLES Final Resu lt [facility] [address] [place] [address], [place] [phone] from Last 3 Months Insurance [facility] Care Teams Agency Sales Development Associate Relationship Specialty Start Date End Date Yaya Dobbins MD [address] [place] [id number] PCP - General Internal Medicine 09/05/24
--- OUTSIDE RECORDS SUMMARY | 2024-11-28 13:31 | XMS_ITS | Encounter Summary ---
Author Organization [facility] Address [address] [place] [address] Care Team Providers Care Wine Merchant Name Role Phone Yaya Dobbins MD Primary Care Provider Encounter Details Date Type Department Care Team (Late st Contact Info) Description 09/05/[address] [facility] - Main Lab 299 [facility] [address] Yaya Dobbins MD [address] [place] [address] Hyperlipidemia, unspecified; Hypothyroidism, unspecified Social [...] LAB CHEMISTRY METHOD 09/05/2024 10:48 AM EDT [facility] Potassium 4.1 3.5 - 5.5 mmol/L LAB CHEMISTRY METHOD 09/05/2024 10:48 AM EDT [facility] Chloride 109 96 - 110 mmol/L LAB CHEMISTRY METHOD 09/05/2024 10:48 AM [facility] CO2 28 21 - 32 mmol/L LAB CHEMISTRY METHOD 09/05/2024 10:48 AM [facility] Anion Gap 5 3 - 11 LAB CHEMISTRY METHOD 09/05/2024 10:48 AM [facility] Glucose 85 70 - 100 mg/dL LAB CHEMISTRY METHOD 09/05/2024 10:48 AM [facility] BUN 11 5 - 25 mg/dL LAB CHEMISTRY METHOD 09/05/2024 10:48 AM [facility] Creatinine 0.60 0.50 - 1.10 mg/dL LAB CHEMISTRY METHOD 09/05/2024 10:48 AM [facility] eGFR 92 >=60 mL/min/1. 73m2 LAB CHEMISTRY METHOD 09/05/2024 10:48 AM [facility] Comment:Calculation based on the Chronic Kidney Disease Epidemiology Collaboration (CKD-EPI) equation refit without adjustment for race. BUN/Creatinine Ratio 18.3 LAB CHEMISTRY METHOD 09/05/2024 10:48 AM [facility] Calcium 8.8 8.5 - 10.5 mg/dL LAB CHEMISTRY METHOD 09/05/2024 10:48 AM [facility] AST (SGOT) 55(H) 10 - 42 unit/L LAB CHEMISTRY METHOD 09/05/2024 10:48 AM [facility] ALT (SGPT) 30 10 - 60 unit/L LAB CHEMISTRY METHOD 09/05/2024 10:48 AM [facility] Alkaline Phosphatase 84 42 - 121 unit/L LAB CHEMISTRY METHOD 09/05/2024 10:48 AM [facility] Total Protein 5.3(L) 6.0 - 8.0 g/dL LAB CHEMISTRY METHOD 09/05/2024 10:48 AM [facility] Albumin 2.8(L) 3.2 - 5.0 g/dL LAB CHEMISTRY METHOD 09/05/2024 10:48 AM EDT [facility] Total Bilirubin 0.9 0.0 - 1.4 mg/dL LAB CHEMISTRY METHOD 09/05/2024 10:48 AM [facility] Blood Venous blood specimen / Unknown Venipuncture / Unknown 09/05/2024 6:49 AM EDT 09/05/2024 9:23 AM EDT us Yaya Dobbins MD LAB BLOOD ORDERABLES Final Resu lt [facility] [address] [place] [address], [place] [phone] * (ABNORMAL) Complete blood count (09/05/2024 6:49 AM EDT) WBC 8.4 4.8 - 10.8 K/mcL LAB HEMETOLOGY METHOD 09/05/2024 10:27 AM [facility] RBC 3.10(L) 3.80 - 4.80 M/mcL LAB HEMETOLOGY METHOD 09/05/2024 10:27 AM [facility] Hemoglobin 9.4(L) 11.5 - 16.0 g/dL LAB HEMETOLOGY METHOD 09/05/2024 10:27 AM [facility] Hematocrit 28.8(L) 35.0 - 47.0 % LAB HEMETOLOGY METHOD 09/05/2024 10:27 AM [facility] MCV 92.9 79.0 - 98.0 FL LAB HEMETOLOGY METHOD 09/05/2024 10:27 AM [facility] MCH 30.3 27.0 - 32.0 pcg LAB HEMETOLOGY METHOD 09/05/2024 10:27 AM [facility] MCHC 32.6 32.0 - 37.0 g/dL LAB HEMETOLOGY METHOD 09/05/2024 10:27 AM EDT [facility] RDW 13.0 11.0 - 15.0 % LAB HEMETOLOGY METHOD 09/05/2024 10:27 AM EDT [facility] Platelets 194 130 - 400 K/mcL LAB HEMETOLOGY METHOD 09/05/2024 10:27 AM EDT [facility] MPV 11.2(H) 7.0 - 11.0 FL LAB HEMETOLOGY METHOD 09/05/2024 10:27 AM EDT [facility] NRBC 0.0 <1.0 % LAB HEMETOLOGY METHOD 09/05/2024 10:27 AM EDT [facility] NRBC Absolute 0.00 <0.10 K/mcL LAB HEMETOLOGY METHOD 09/05/2024 10:27 AM EDT [facility] Blood Venous blood specimen / Unknown Venipuncture / Unknown 09/05/2024 6:49 AM EDT 09/05/2024 9:23 AM EDT us Yaya Dobbins MD LAB BLOOD ORDERABLES Final Resu lt [facility] [address] [place] [address], documented in this encounter Visit Diagnoses Diagnosis Hyperlipidemia, unspecified Hypothyroidism, unspecified documented in this encounter Care Teams Wine Merchant Relationship Specialty Start Date End Date Yaya Dobbins MD [address] [place] [address] PCP - General Internal Medicine 09/05/24 documented as of this encounter
--- OUTSIDE RECORDS SUMMARY | 2024-11-28 13:31 | XMS_ITS | Encounter Summary ---
Author Organization [facility] Address [address] [place] [address] Care Team Providers Care Attendance Secretary Name Role Phone Yaya Dobbins MD Primary Care Provider [phone] Encounter Details Date Type Department Care Team (Late st Contact Info) Description 09/11/2024 Lab Requisition [facility] - Main Lab 299 [facility] [employer] [place] [address] Yaya Dobbins MD [address] [place] [address] Hyperlipidemia, unspecified Social History Tobacco [...] LAB CHEMISTRY METHOD 09/14/2024 1:49 PM EDT [facility] Potassium 4.0 3.5 - 5.5 mmol/L LAB CHEMISTRY METHOD 09/14/2024 1:49 PM EDT [facility] Chloride 112(H) 96 - 110 mmol/L LAB CHEMISTRY METHOD 09/14/2024 1:49 PM [facility] CO2 26 21 - 32 mmol/L LAB CHEMISTRY METHOD 09/14/2024 1:49 PM [facility] Anion Gap 7 3 - 11 LAB CHEMISTRY METHOD 09/14/2024 1:49 PM [facility] Glucose 72 70 - 100 mg/dL LAB CHEMISTRY METHOD 09/14/2024 1:49 PM [facility] BUN 12 5 - 25 mg/dL LAB CHEMISTRY METHOD 09/14/2024 1:49 PM [facility] Creatinine 0.64 0.50 - 1.10 mg/dL LAB CHEMISTRY METHOD 09/14/2024 1:49 PM [facility] eGFR 91 >=60 mL/min/1. 73m2 LAB CHEMISTRY METHOD 09/14/2024 1:49 PM [facility] Comment:Calculation based on the Chronic Kidney Disease Epidemiology Collaboration (CKD-EPI) equation refit without adjustment for race. BUN/Creatinine Ratio 18.8 LAB CHEMISTRY METHOD 09/14/2024 1:49 PM [facility] Calcium 9.0 8.5 - 10.5 mg/dL LAB CHEMISTRY METHOD 09/14/2024 1:49 PM [facility] AST (SGOT) 43(H) 10 - 42 unit/L LAB CHEMISTRY METHOD 09/14/2024 1:49 PM [facility] ALT (SGPT) 31 10 - 60 unit/L LAB CHEMISTRY METHOD 09/14/2024 1:49 PM [facility] Alkaline Phosphatase 125(H) 42 - 121 unit/L LAB CHEMISTRY METHOD 09/14/2024 1:49 PM [facility] Total Protein 5.3(L) 6.0 - 8.0 g/dL LAB CHEMISTRY METHOD 09/14/2024 1:49 PM [facility] Albumin 2.9(L) 3.2 - 5.0 g/dL LAB CHEMISTRY METHOD 09/14/2024 1:49 PM EDT [facility] Total Bilirubin 0.5 0.0 - 1.4 mg/dL LAB CHEMISTRY METHOD 09/14/2024 1:49 PM [facility] Blood Venous blood specimen / Unknown Venipuncture / Unknown 09/14/2024 4:53 AM EDT 09/14/2024 10:55 AM EDT us Yaya Dobbins MD LAB BLOOD ORDERABLES Final Resu lt [facility] [address] [place] [address], * (ABNORMAL) Complete blood count (09/14/2024 4:53 AM EDT) WBC 7.1 4.8 - 10.8 K/mcL LAB HEMETOLOGY METHOD 09/14/2024 11:19 AM [facility] RBC 3.20(L) 3.80 - 4.80 M/mcL LAB HEMETOLOGY METHOD 09/14/2024 11:19 AM [facility] Hemoglobin 10.0(L) 11.5 - 16.0 g/dL LAB HEMETOLOGY METHOD 09/14/2024 11:19 AM [facility] Hematocrit 32.0(L) 35.0 - 47.0 % LAB HEMETOLOGY METHOD 09/14/2024 11:19 AM [facility] MCV 100.6(H) 79.0 - 98.0 FL LAB HEMETOLOGY METHOD 09/14/2024 11:19 AM [facility] MCH 31.4 27.0 - 32.0 pcg LAB HEMETOLOGY METHOD 09/14/2024 11:19 AM [facility] MCHC 31.3(L) 32.0 - 37.0 g/dL LAB HEMETOLOGY METHOD 09/14/2024 11:19 AM EDT [facility] RDW 14.9 11.0 - 15.0 % LAB HEMETOLOGY METHOD 09/14/2024 11:19 AM EDT [facility] Platelets 321 130 - 400 K/mcL LAB HEMETOLOGY METHOD 09/14/2024 11:19 AM EDT [facility] MPV 10.2 7.0 - 11.0 FL LAB HEMETOLOGY METHOD 09/14/2024 11:19 AM EDT [facility] NRBC 0.0 <1.0 % LAB HEMETOLOGY METHOD 09/14/2024 11:19 AM EDT [facility] NRBC Absolute 0.00 <0.10 K/mcL LAB HEMETOLOGY METHOD 09/14/2024 11:19 AM EDT [facility] Blood Venous blood specimen / Unknown Venipuncture / Unknown 09/14/2024 4:53 AM EDT 09/14/2024 10:54 AM EDT Yaya Dobbins MD LAB BLOOD ORDERABLES Final Resu lt [facility] [address] [place] [address], documented in this encounter Visit Diagnoses Diagnosis Hyperlipidemia, unspecified documented in this encounter Care Teams Attendance Secretary Relationship Specialty Start Date End Date Yaya Dobbins MD [address] [place] [address] PCP - General Internal Medicine 09/05/24 documented as of this encounter
--- OUTSIDE RECORDS SUMMARY | 2024-11-28 13:31 | XMS_ITS | Encounter Summary ---
Author Organization [facility] Address [address] [place] [address] Care Team Providers Care Transportation Department Head Name Role Phone Yaya Dobbins MD Primary Care Provider [phone] Encounter Details Date Type Department Care Team (Late st Contact Info) Description 09/09/2024 Lab Requisition [facility] - Main Lab 299 [facility] [place] [address] Yaya Dobbins MD [address] [place] [address] Hyperlipidemia, unspecified Social History Tobacco [...] mmol/L LAB CHEMISTRY METHOD 09/10/2024 9:[address] [facility] CO2 26 21 - 32 mmol/L LAB CHEMISTRY METHOD 09/10/2024 9:[address] [facility] Anion Gap 5 3 - 11 LAB CHEMISTRY METHOD 09/10/2024 9:[address] [facility] Glucose 86 70 - 100 mg/dL LAB CHEMISTRY METHOD 09/10/2024 9:[address] [facility] BUN 10 5 - 25 mg/dL LAB CHEMISTRY METHOD 09/10/2024 9:[address] [facility] Creatinine 0.51 0.50 - 1.10 mg/dL LAB CHEMISTRY METHOD 09/10/2024 9:[address] [facility] eGFR 96 >=60 mL/min/1. 73m2 LAB CHEMISTRY METHOD 09/10/2024 9:[address] [facility] Comment:Calculation based on the Chronic Kidney Disease Epidemiology Collaboration (CKD-EPI) equation refit without adjustment for race. BUN/Creatinine Ratio 19.6 LAB CHEMISTRY METHOD 09/10/2024 9:[address] [facility] Calcium 9.1 8.5 - 10.5 mg/dL LAB CHEMISTRY METHOD 09/10/2024 9:[address] [facility] Blood Venous blood specimen / Unknown Venipuncture / Unknown 09/10/2024 4:58 AM EDT 09/10/2024 8:42 AM EDT us Yaya Dobbins MD LAB BLOOD ORDERABLES Final Resu lt [facility] [address] [place] [address], * (ABNORMAL) Complete blood count (09/10/2024 4:58 AM EDT) WBC 7.7 4.8 - 10.8 K/[facility] LAB HEMETOLOGY METHOD 09/10/2024 9:[address] [facility] RBC 3.00(L) 3.80 - 4.80 M/mcL LAB HEMETOLOGY METHOD 09/10/2024 9:[address] [facility] Hemoglobin 9.5(L) 11.5 - 16.0 g/dL LAB HEMETOLOGY METHOD 09/10/2024 9:[address] [facility] Hematocrit 29.7(L) 35.0 - 47.0 % LAB HEMETOLOGY METHOD 09/10/2024 9:[address] [facility] MCV 98.3(H) 79.0 - 98.0 FL LAB HEMETOLOGY METHOD 09/10/2024 9:[address] [facility] MCH 31.5 27.0 - 32.0 pcg LAB HEMETOLOGY METHOD 09/10/2024 9:[address] [facility] MCHC 32.0 32.0 - 37.0 g/dL LAB HEMETOLOGY METHOD 09/10/2024 9:[address] [facility] RDW 14.1 11.0 - 15.0 % LAB HEMETOLOGY METHOD 09/10/2024 9:[address] [facility] Platelets 304 130 - 400 K/mcL LAB HEMETOLOGY METHOD 09/10/2024 9:[address] [facility] MPV 10.5 7.0 - 11.0 FL LAB HEMETOLOGY METHOD 09/10/2024 9:[address] [facility] NRBC 0.0 <1.0 % LAB HEMETOLOGY METHOD 09/10/2024 9:[address] [facility] NRBC Absolute 0.00 <0.10 K/mcL LAB HEMETOLOGY METHOD 09/10/2024 9:[address] [facility] Blood Venous blood specimen / Unknown Venipuncture / Unknown 09/10/2024 4:58 AM EDT 09/10/2024 8:45 AM EDT Yaya Dobbins MD LAB BLOOD ORDERABLES Final Resu lt [facility] [address] [place] [address], documented in this encounter Visit Diagnoses Diagnosis Hyperlipidemia, unspecified documented in this encounter Care Teams Transportation Department Head Relationship Specialty Start Date End Date Yaya Dobbins MD [address] [place] [address] PCP - General Internal Medicine 09/05/24 documented as of this encounter
--- OUTSIDE RECORDS SUMMARY | 2024-11-28 13:31 | XMS_ITS | Encounter Summary ---
Author Organization [facility] Address [address] [place] [address] Care Team Providers Care Round Corner Cutter Operator Name Role Phone Yaya Dobbins MD Primary Care Provider [phone] Encounter Details Date Type Department Care Team (Late st Contact Info) Description 09/16/2024 Lab Requisition [facility] - Main Lab [address] [facility] [place] [address] Yaya Dobbins MD [address] [place] [address] Hyperlipidemia, unspecified Social History Tobacco [...] LAB CHEMISTRY METHOD 09/17/2024 9:16 AM EDT [facility] Potassium 4.1 3.5 - 5.5 mmol/L LAB CHEMISTRY METHOD 09/17/2024 9:16 AM EDT [facility] Chloride 114(H) 96 - 110 mmol/L LAB CHEMISTRY METHOD 09/17/2024 9:16 AM [facility] CO2 26 21 - 32 mmol/L LAB CHEMISTRY METHOD 09/17/2024 9:16 AM [facility] Anion Gap 5 3 - 11 LAB CHEMISTRY METHOD 09/17/2024 9:16 AM [facility] Glucose 77 70 - 100 mg/dL LAB CHEMISTRY METHOD 09/17/2024 9:16 AM [facility] BUN 11 5 - 25 mg/dL LAB CHEMISTRY METHOD 09/17/2024 9:16 AM [facility] Creatinine 0.65 0.50 - 1.10 mg/dL LAB CHEMISTRY METHOD 09/17/2024 9:16 AM [facility] eGFR 90 >=60 mL/min/1. 73m2 LAB CHEMISTRY METHOD 09/17/2024 9:16 AM [facility] Comment:Calculation based on the Chronic Kidney Disease Epidemiology Collaboration (CKD-EPI) equation refit without adjustment for race. BUN/Creatinine Ratio 16.9 LAB CHEMISTRY METHOD 09/17/2024 9:16 AM [facility] Calcium 9.2 8.5 - 10.5 mg/dL LAB CHEMISTRY METHOD 09/17/2024 9:16 AM [facility] Blood Venous blood specimen / Unknown Venipuncture / Unknown 09/17/2024 4:51 AM EDT 09/17/2024 7:42 AM EDT us Yaya Dobbins MD LAB BLOOD ORDERABLES Final Resu lt [facility] [address] [place] [address], * (ABNORMAL) Complete blood count (09/17/2024 4:51 AM EDT) WBC 5.9 4.8 - 10.8 K/[facility] LAB HEMETOLOGY METHOD 09/17/2024 8:39 AM [facility] RBC 3.30(L) 3.80 - 4.80 M/mcL LAB HEMETOLOGY METHOD 09/17/2024 8:39 AM [facility] Hemoglobin 10.1(L) 11.5 - 16.0 g/dL LAB HEMETOLOGY METHOD 09/17/2024 8:39 AM [facility] Hematocrit 32.4(L) 35.0 - 47.0 % LAB HEMETOLOGY METHOD 09/17/2024 8:39 AM [facility] MCV 99.7(H) 79.0 - 98.0 FL LAB HEMETOLOGY METHOD 09/17/2024 8:39 AM [facility] MCH 31.1 27.0 - 32.0 pcg LAB HEMETOLOGY METHOD 09/17/2024 8:39 AM [facility] MCHC 31.2(L) 32.0 - 37.0 g/dL LAB HEMETOLOGY METHOD 09/17/2024 8:39 AM [facility] RDW 15.2(H) 11.0 - 15.0 % LAB HEMETOLOGY METHOD 09/17/2024 8:39 AM [facility] Platelets 324 130 - 400 K/mcL LAB HEMETOLOGY METHOD 09/17/2024 8:39 AM [facility] MPV 10.1 7.0 - 11.0 FL LAB HEMETOLOGY METHOD 09/17/2024 8:39 AM [facility] NRBC 0.0 <1.0 % LAB HEMETOLOGY METHOD 09/17/2024 8:39 AM [facility] NRBC Absolute 0.00 <0.10 K/mcL LAB HEMETOLOGY METHOD 09/17/2024 8:39 AM [facility] Blood Venous blood specimen / Unknown Venipuncture / Unknown 09/17/2024 4:51 AM EDT 09/17/2024 7:42 AM EDT Yaya Dobbins MD LAB BLOOD ORDERABLES Final Resu lt [facility] [address] [place] [address], documented in this encounter Visit Diagnoses Diagnosis Hyperlipidemia, unspecified documented in this encounter Care Teams Round Corner Cutter Operator Relationship Specialty Start Date End Date Yaya Dobbins MD [address] [place] [address] PCP - General Internal Medicine 09/05/24 documented as of this encounter
--- OUTSIDE RECORDS SUMMARY | 2024-11-28 13:31 | XMS_ITS | Clinical Summary ---
Author Organization [facility] Address [address] [place], [place] [id number] Phone Care Team Providers Care Client Manager Large Law Name Role Phone Rodolfo Stein MD Primary Care Provider [phone] Allergies Active Allergy Reactions Criticality Noted Date [...] topic Medical Devices Not on file Insurance [facility] [address] [place], [place] [address]O [facility] [address] [place] [address] [place], [place] [address]O [facility] [employer] [facility] [employer] Care Teams Client Manager Large Law Relationship Specialty Start Date End Date Rodolfo Stein MD [address] [place] [address] PCP - General Internal Medicine 01/22/14 Additional Source Comments The information contained in this document represents components of the legal health record. It is not the complete legal health record.[facility]
--- OUTSIDE RECORDS SUMMARY | 2024-11-28 13:31 | XMS_ITS | Encounter Summary ---
Author Organization [facility] Address [address] [place] [address] Care Team Providers Care Ripsaw Grader Name Role Phone Yaya Dobbins MD Primary Care Provider [phone] Encounter Details Date Type Department Care Team (Late st Contact Info) Description 09/07/2024 Lab Requisition [facility] - Main Lab 299 [facility] [place] [address] Yaya Dobbins MD [address] [place] [address] Hypothyroidism, unspecified; Hyperlipidemia, unspecified Social [...] LAB CHEMISTRY METHOD 09/07/2024 12:51 PM EDT [facility] Potassium 4.0 3.5 - 5.5 mmol/L LAB CHEMISTRY METHOD 09/07/2024 12:51 PM EDT [facility] Chloride 111(H) 96 - 110 mmol/L LAB CHEMISTRY METHOD 09/07/2024 12:[address] [facility] CO2 26 21 - 32 mmol/L LAB CHEMISTRY METHOD 09/07/2024 12:[address] [facility] Anion Gap 7 3 - 11 LAB CHEMISTRY METHOD 09/07/2024 12:[address] [facility] Glucose 80 70 - 100 mg/dL LAB CHEMISTRY METHOD 09/07/2024 12:[address] [facility] BUN 10 5 - 25 mg/dL LAB CHEMISTRY METHOD 09/07/2024 12:[address] [facility] Creatinine 0.60 0.50 - 1.10 mg/dL LAB CHEMISTRY METHOD 09/07/2024 12:[address] [facility] eGFR 92 >=60 mL/min/1. 73m2 LAB CHEMISTRY METHOD 09/07/2024 12:[address] [facility] Comment:Calculation based on the Chronic Kidney Disease Epidemiology Collaboration (CKD-EPI) equation refit without adjustment for race. BUN/Creatinine Ratio 16.7 LAB CHEMISTRY METHOD 09/07/2024 12:[address] [facility] Calcium 8.6 8.5 - 10.5 mg/dL LAB CHEMISTRY METHOD 09/07/2024 12:[address] [facility] AST (SGOT) 48(H) 10 - 42 unit/L LAB CHEMISTRY METHOD 09/07/2024 12:[address] [facility] ALT (SGPT) 32 10 - 60 unit/L LAB CHEMISTRY METHOD 09/07/2024 12:[address] [facility] Alkaline Phosphatase 106 42 - 121 unit/L LAB CHEMISTRY METHOD 09/07/2024 12:[address] [facility] Total Protein 5.4(L) 6.0 - 8.0 g/dL LAB CHEMISTRY METHOD 09/07/2024 12:[address] [facility] Albumin 2.9(L) 3.2 - 5.0 g/dL LAB CHEMISTRY METHOD 09/07/2024 12:51 PM EDT [facility] Total Bilirubin 0.9 0.0 - 1.4 mg/dL LAB CHEMISTRY METHOD 09/07/2024 12:51 PM EDT [facility] Blood Venous blood specimen / Unknown Venipuncture / Unknown 09/07/2024 5:09 AM EDT 09/07/2024 11:28 AM EDT us Yaya Dobbins MD LAB BLOOD ORDERABLES Final Resu lt [facility] [address] [place] [address], [place] [phone] * (ABNORMAL) Complete blood count (09/07/2024 5:09 AM EDT) WBC 8.2 4.8 - 10.8 K/mcL LAB HEMETOLOGY METHOD 09/07/2024 1:09 PM EDT [facility] RBC 3.10(L) 3.80 - 4.80 M/mcL LAB HEMETOLOGY METHOD [facility] Hemoglobin 9.3(L) 11.5 - 16.0 g/dL LAB HEMETOLOGY METHOD 09/07/2024 1:09 PM EDT [facility] Hematocrit 29.6(L) 35.0 - 47.0 % LAB HEMETOLOGY METHOD 09/07/2024 1:09 PM EDT [facility] MCV 97.0 79.0 - 98.0 FL LAB HEMETOLOGY METHOD 09/07[facility]2024 [facility] MCH 30.5 27.0 - 32.0 pcg LAB HEMETOLOGY METHOD 09/07/2024 1:09 PM EDT [facility] MCHC 31.4(L) 32.0 - 37.0 g/dL LAB HEMETOLOGY METHOD 09/07/2024 1:09 PM EDT [facility] RDW 13.6 11.0 - 15.0 % LAB HEMETOLOGY METHOD 09/07/2024 1:09 PM EDT [facility] Platelets 229 130 - 400 K/mcL LAB HEMETOLOGY METHOD 09/07/2024 1:09 PM EDT [facility] MPV 10.7 7.0 - 11.0 FL LAB HEMETOLOGY METHOD 09/07/2024 1:09 PM EDT [facility] NRBC 0.0 <1.0 % LAB HEMETOLOGY METHOD 09/07/2024 1:09 PM EDT [facility] NRBC Absolute 0.00 <0.10 K/mcL LAB HEMETOLOGY METHOD 09/07/2024 1:09 PM EDT [facility] Blood Venous blood specimen / Unknown Venipuncture / Unknown 09/07/2024 5:09 AM EDT 09/07/2024 11:28 AM EDT Yaya Dobbins MD LAB BLOOD ORDERABLES Final Resu lt [facility] [address] [place] [address], [place] [phone] documented in this encounter Visit Diagnoses Diagnosis Hypothyroidism, unspecified Hyperlipidemia, unspecified documented in this encounter Care Teams Ripsaw Grader Relationship Specialty Start Date End Date Yaya Dobbins MD [address] [place] [address] PCP - General Internal Medicine 09/05/24 documented as of this encounter
[2024-11-28 16:39] LABS: Free T4 (Free Thyroxine) 0.76 ng/dL (0.71-1.85)
== END 2024-11-28 13:28 | disposition home or self-care (01) ==
LOC: HO.HMGCLDS 13:27
PROVIDERS: PCP Physician Assistant Medical; Visit Provider Physician Assistant Medical
DX: Z00.00 Encounter for general adult medical examination without abnormal findings (principal); Z13.29 Encounter for screening for other suspected endocrine disorder
CPT/HCPCS: 36415; 84439; 84443

== ENCOUNTER 2024-12-17 14:02 | Outpatient (REF) | payer MEDICARE, SELFPAY ==
--- NOTE | ~2024-12-17 | US_ITS ---
CLINICAL HISTORY: N20.0 - Calculus of kidney US Renal Comparison: None provided Findings: Right kidney normal size and echotexture, 10.7 cm length. Left kidney normal size and echotexture, 10.2 cm length. No hydronephrosis of either kidney. Normal color Doppler. There are bilateral renal parenchymal calculi. There is a Bosniak 1 right renal cortical 5.5 x 5.0 x 4.2 cm cyst. Urinary bladder is unremarkable. Prevoid volume 226 mL. Postvoid volume 24.1 mL. Bilateral ureteral jets are visualized. IMPRESSION: 1. Renal parenchymal calculi. No acute findings This document has been electronically signed by: Emerson Sanders MD on 12/18/2024 10:48:51
--- OUTSIDE RECORDS SUMMARY | 2024-12-17 17:46 | XMS_ITS | Encounter Summary ---
Author Organization [facility] Address [address] [place] [address] Care Team Providers Care Safe Expert Name Role Phone Yaya Dobbins MD Primary Care Provider Encounter Details Date Type Department Care Team (Late st Contact Info) Description 09/19/2024 Lab Requisition [facility] - Main Lab [address] [facility] [place] [address] Yaya Dobbins MD [address] [place] [address] Hyperlipidemia, unspecified Social History Tobacco [...] LAB CHEMISTRY METHOD 09/21/2024 11:[address] [facility] Potassium 4.0 3.5 - 5.5 mmol/L LAB CHEMISTRY METHOD 09/21/2024 11:[address] [facility] Chloride 114(H) 96 - 110 [...] MD LAB BLOOD ORDERABLES Final Resu lt [facility] [address] [place] [address], * (ABNORMAL) Complete blood count (09/21/2024 4:46 AM EDT) WBC 5.6 4.8 - 10.8 K/mcL LAB HEMETOLOGY METHOD 09/21/2024 10:22 AM [facility] RBC 3.10(L) 3.80 [...] LAB HEMETOLOGY METHOD 09/21/2024 10:[address] [facility] RDW 15.7(H) 11.0 - 15.0 % LAB HEMETOLOGY METHOD 09/21/2024 10:[address] [facility] Platelets 273 130 - 400 K/mcL LAB HEMETOLOGY METHOD 09/21/2024 10:[address] [facility] MPV 10.6 7.0 - 11.0 FL LAB HEMETOLOGY METHOD 09/21/2024 10:[address] [facility] NRBC 0.0 <1.0 % LAB HEMETOLOGY METHOD 09/21/2024 10:[address] [facility] NRBC Absolute 0.00 <0.10 K/mcL LAB HEMETOLOGY METHOD 09/21/2024 10:[address] [facility] Blood Venous blood specimen / Unknown Venipuncture / Unknown 09/21/2024 4:46 AM EDT 09/21/2024 10:02 AM EDT Yaya Dobbins MD LAB BLOOD ORDERABLES Final Resu lt [facility] [address] [place] [address], documented in this encounter Visit Diagnoses Diagnosis Hyperlipidemia, unspecified documented in this encounter Care Teams Safe Expert Relationship Specialty Start Date End Date Yaya Dobbins MD [address] [place] [id number] PCP - General Internal Medicine 09/05/24 documented as of this encounter
--- OUTSIDE RECORDS SUMMARY | 2024-12-17 17:47 | XMS_ITS | Encounter Summary ---
Author Organization [facility] Address [address] [place] [address] Care Team Providers Care Lead Applier Name Role Phone Yaya Dobbins MD Primary Care Provider [phone] Encounter Details Date Type Department Care Team (Late st Contact Info) Description 09/05/2024 Lab Requisition [facility] - Main Lab [address] [facility] [place] [address] Yaya Dobbins MD [address] [place] [address] Hyperlipidemia, unspecified; Hypothyroidism, unspecified Social [...] LAB CHEMISTRY METHOD 09/05/2024 10:48 AM EDT [facility] Potassium 4.1 3.5 - 5.5 mmol/L LAB CHEMISTRY METHOD 09/05/2024 10:48 AM EDT [facility] Chloride 109 96 - 110 mmol/L LAB CHEMISTRY METHOD 09/05/2024 10:48 AM [facility] CO2 28 21 - 32 mmol/L LAB CHEMISTRY METHOD 09/05/2024 10:48 AM [facility] Anion Gap 5 3 - 11 LAB CHEMISTRY METHOD 09/05/2024 10:48 AM [facility] Glucose 85 70 - 100 mg/dL LAB CHEMISTRY METHOD 09/05/2024 10:48 AM [facility] BUN 11 5 - 25 mg/dL LAB CHEMISTRY METHOD 09/05/2024 10:48 AM [facility] Creatinine 0.60 0.50 - 1.10 mg/dL LAB CHEMISTRY METHOD 09/05/2024 10:48 AM [facility] LAB eGFR 92 >=60 mL/min/1. 73m2 LAB CHEMISTRY METHOD 09/05/2024 10:48 AM [facility] LAB Comment:Calculation based on the Chronic Kidney Disease Epidemiology Collaboration (CKD-EPI) equation refit without adjustment for race. BUN/Creatinine Ratio 18.3 LAB CHEMISTRY METHOD 09/05/2024 10:48 AM [facility] Calcium 8.8 8.5 - 10.5 mg/dL LAB CHEMISTRY METHOD 09/05/2024 10:48 AM [facility] LAB AST (SGOT) 55(H) 10 - 42 unit/L LAB CHEMISTRY METHOD 09/05/2024 10:48 AM [facility] LAB ALT (SGPT) 30 10 - 60 unit/L LAB CHEMISTRY METHOD 09/05/2024 10:48 AM [facility] Alkaline Phosphatase 84 42 - 121 unit/L LAB CHEMISTRY METHOD 09/05/2024 10:48 AM [facility] Total Protein 5.3(L) 6.0 - 8.0 g/dL LAB CHEMISTRY METHOD 09/05/2024 10:48 AM [facility] Albumin 2.8(L) 3.2 - 5.0 g/dL LAB CHEMISTRY METHOD 09/05/2024 10:48 AM EDT [facility] Total Bilirubin 0.9 0.0 - 1.4 mg/dL LAB CHEMISTRY METHOD 09/05/2024 10:48 AM [facility] Blood Venous blood specimen / Unknown Venipuncture / Unknown 09/05/2024 6:49 AM EDT 09/05/2024 9:23 AM EDT us Yaya Dobbins MD LAB BLOOD ORDERABLES Final Resu lt [facility] [address] [place] [address], [place] [phone] * (ABNORMAL) Complete blood count (09/05/2024 6:49 AM EDT) WBC 8.4 4.8 - 10.8 K/mcL LAB HEMETOLOGY METHOD 09/05/2024 10:27 AM [facility] RBC 3.10(L) 3.80 - 4.80 M/mcL LAB HEMETOLOGY METHOD 09/05/2024 10:27 AM [facility] Hemoglobin 9.4(L) 11.5 - 16.0 g/dL LAB HEMETOLOGY METHOD 09/05/2024 10:27 AM [facility] Hematocrit 28.8(L) 35.0 - 47.0 % LAB HEMETOLOGY METHOD 09/05/2024 10:27 AM [facility] LAB MCV 92.9 79.0 - 98.0 FL LAB HEMETOLOGY METHOD 09/05/2024 10:27 AM [facility] MCH 30.3 27.0 - 32.0 pcg LAB HEMETOLOGY METHOD 09/05/2024 10:27 AM [facility] LAB MCHC 32.6 32.0 - 37.0 g/dL LAB HEMETOLOGY METHOD 09/05/2024 10:27 AM EDT [facility] RDW 13.0 11.0 - 15.0 % LAB HEMETOLOGY METHOD 09/05/2024 10:27 AM EDT [facility] Platelets 194 130 - 400 K/mcL LAB HEMETOLOGY METHOD 09/05/2024 10:27 AM EDT [facility] MPV 11.2(H) 7.0 - 11.0 FL LAB HEMETOLOGY METHOD 09/05/2024 10:27 AM EDT [facility] NRBC 0.0 <1.0 % LAB HEMETOLOGY METHOD 09/05/2024 10:27 AM EDT [facility] NRBC Absolute 0.00 <0.10 K/mcL LAB HEMETOLOGY METHOD 09/05/2024 10:27 AM EDT [facility] Blood Venous blood specimen / Unknown Venipuncture / Unknown 09/05/2024 6:49 AM EDT 09/05/2024 9:23 AM EDT us Yaya Dobbins MD LAB BLOOD ORDERABLES Final Resu lt [facility] [address] [place] [address], documented in this encounter Visit Diagnoses Diagnosis Hyperlipidemia, unspecified Hypothyroidism, unspecified documented in this encounter Care Teams Lead Applier Relationship Specialty Start Date End Date Yaya Dobbins MD [address] [place] [address] PCP - General Internal Medicine 09/05/24 documented as of this encounter
--- OUTSIDE RECORDS SUMMARY | 2024-12-17 17:47 | XMS_ITS | Clinical Summary ---
Author Organization [address] [facility] Address [address] [place] [address] Phone Care Team Providers Care Sas Clinical Programmer Name Role Phone Yaya Dobbins MD Primary Care Provider [phone] Encounters Date Type Department Care Team Description 09/19/2024 Lab Requisition [facility] Lab [address] [place] [address] Yaya Dobbins MD Hyperlipidemia, unspecified 09/16/2024 Lab Requisition [facility] Lab [address] [place] [address] Yaya Dobbins MD Hyperlipidemia, unspecified from Last 3 Months Social History [...] Routine 09/17/2024 4:51 AM EDT Hyperlipidemia, unspecified from Last 3 Months Results * (ABNORMAL) Complete blood count (09/21/2024 4:46 AM EDT) Only the most recent of2 resultswithin the time period is included. WBC 5.6 4.8 - 10.8 K/[facility] LAB HEMETOLOGY METHOD 09/21/2024 10:22 AM [facility] RBC 3.10(L) 3.80 - 4.80 M/mcL LAB HEMETOLOGY METHOD 09/21/2024 10:22 AM [facility] Hemoglobin 9.8(L) 11.5 - 16.0 g/dL LAB HEMETOLOGY METHOD 09/21/2024 10:22 AM [facility] LAB Hematocrit 31.4(L) 35.0 - 47.0 % LAB HEMETOLOGY METHOD 09/21/2024 10:22 AM [facility] LAB MCV 101.0(H) 79.0 - 98.0 FL LAB HEMETOLOGY METHOD 09/21/2024 10:22 AM [facility] MCH 31.5 27.0 - 32.0 pcg LAB HEMETOLOGY METHOD 09/21/2024 10:22 AM [facility] LAB MCHC 31.2(L) 32.0 - 37.0 g/dL LAB HEMETOLOGY METHOD 09/21/2024 10:22 AM [facility] LAB RDW 15.7(H) 11.0 - 15.0 % LAB HEMETOLOGY METHOD 09/21/2024 10:22 AM [facility] LAB Platelets 273 130 - 400 K/mcL LAB HEMETOLOGY METHOD 09/21/2024 10:22 AM [facility] MPV 10.6 7.0 - 11.0 FL LAB HEMETOLOGY METHOD 09/21/2024 10:22 AM [facility] LAB NRBC 0.0 <1.0 % LAB HEMETOLOGY METHOD 09/21/2024 10:22 AM [facility] LAB NRBC Absolute 0.00 <0.10 K/mcL LAB HEMETOLOGY METHOD 09/21/2024 10:22 AM [facility] Blood Venous blood specimen / Unknown Venipuncture / Unknown 09/21/2024 4:46 AM EDT 09/21/2024 10:02 AM EDT us Yaya Dobbins MD LAB BLOOD ORDERABLES Final Resu lt [facility] [address] [place] [address], [place] [phone] * (ABNORMAL) Comprehensive metabolic panel (09/21/2024 4:46 AM EDT) Sodium 144 133 - 145 mmol/L LAB CHEMISTRY METHOD 09/21/2024 11:20 AM [facility] Potassium 4.0 3.5 - 5.5 mmol/L LAB CHEMISTRY METHOD 09/21/2024 11:20 AM [facility] Chloride 114(H) 96 - 110 mmol/L LAB CHEMISTRY METHOD 09/21/2024 11:20 AM [facility] CO2 22 21 - 32 mmol/L LAB CHEMISTRY METHOD 09/21/2024 11:20 AM [facility] Anion Gap 8 3 - 11 LAB CHEMISTRY METHOD 09/21/2024 11:20 AM [facility] Glucose 82 70 - 100 mg/dL LAB CHEMISTRY METHOD 09/21/2024 11:20 AM [facility] BUN 13 5 - 25 mg/dL LAB CHEMISTRY METHOD 09/21/2024 11:20 AM [facility] Creatinine 0.61 0.50 - 1.10 mg/dL LAB CHEMISTRY METHOD 09/21/2024 11:20 AM [facility] LAB eGFR 92 >=60 mL/min/1. 73m2 LAB CHEMISTRY METHOD 09/21/2024 11:20 AM [facility] Comment:Calculation based on the Chronic Kidney Disease Epidemiology Collaboration (CKD-EPI) equation refit without adjustment for race. BUN/Creatinine Ratio 21.3 LAB CHEMISTRY METHOD 09/21/2024 11:20 AM [facility] Calcium 9.0 8.5 - 10.5 mg/dL LAB CHEMISTRY METHOD 09/21/2024 11:20 AM [facility] AST (SGOT) 40 10 - 42 unit/L LAB CHEMISTRY METHOD 09/21/2024 11:20 AM [facility] ALT (SGPT) 31 10 - 60 unit/L LAB CHEMISTRY METHOD 09/21/2024 11:20 AM [facility] Alkaline Phosphatase 140(H) 42 - 121 unit/L LAB CHEMISTRY METHOD 09/21/2024 11:20 AM [facility] Total Protein 5.3(L) 6.0 - 8.0 g/dL LAB CHEMISTRY METHOD 09/21/2024 11:20 AM [facility] Albumin 3.1(L) 3.2 - 5.0 g/dL LAB CHEMISTRY METHOD 09/21/2024 11:20 AM [facility] Total Bilirubin 0.5 0.0 - 1.4 mg/dL LAB CHEMISTRY METHOD 09/21/2024 11:20 AM [facility] Blood Venous blood specimen / Unknown Venipuncture / Unknown 09/21/2024 4:46 AM EDT 09/21/2024 11:05 AM EDT us Yaya Dobbins MD LAB BLOOD ORDERABLES Final Resu lt [facility] [address] [place] [address], * (ABNORMAL) Basic metabolic panel (09/17/2024 4:51 AM EDT) Sodium 145 133 - 145 mmol/L LAB CHEMISTRY METHOD 09/17/2024 9:16 AM [facility] Potassium 4.1 3.5 - 5.5 mmol/L LAB CHEMISTRY METHOD 09/17/2024 9:16 AM [facility] Chloride 114(H) 96 - 110 mmol/L LAB CHEMISTRY METHOD 09/17/2024 9:16 AM [facility] CO2 26 21 - 32 mmol/L LAB CHEMISTRY METHOD 09/17/2024 9:16 AM [facility] Anion Gap 5 3 - 11 LAB CHEMISTRY METHOD 09/17/2024 9:16 AM [facility] Glucose 77 70 - 100 mg/dL LAB CHEMISTRY METHOD 09/17/2024 9:16 AM [facility] BUN 11 5 - 25 mg/dL LAB CHEMISTRY METHOD 09/17/2024 9:16 AM [facility] Creatinine 0.65 0.50 - 1.10 mg/dL LAB CHEMISTRY METHOD 09/17/2024 9:16 AM [facility] eGFR 90 >=60 mL/min/1. 73m2 LAB CHEMISTRY METHOD 09/17/2024 9:16 AM [facility] Comment:Calculation based on the Chronic Kidney Disease Epidemiology Collaboration (CKD-EPI) equation refit without adjustment for race. BUN/Creatinine Ratio 16.9 LAB CHEMISTRY METHOD 09/17/2024 9:16 AM [facility] Calcium 9.2 8.5 - 10.5 mg/dL LAB CHEMISTRY METHOD 09/17/2024 9:16 AM [facility] Blood Venous blood specimen / Unknown Venipuncture / Unknown 09/17/2024 4:51 AM EDT 09/17/2024 7:42 AM EDT us Yaya Dobbins MD LAB BLOOD ORDERABLES Final Resu lt [facility] [address] [place] [address], [place] [phone] from Last 3 Months Insurance [facility] Care Teams Sas Clinical Programmer Relationship Specialty Start Date End Date Yaya Dobbins MD [address] [place] [address] PCP - General Internal Medicine 09/05/24
--- OUTSIDE RECORDS SUMMARY | 2024-12-17 17:47 | XMS_ITS | Encounter Summary ---
Author Organization [facility] Address [address] [place] [address] Care Team Providers Care Hand Alterations Seamstress Name Role Phone Yaya Dobbins MD Primary Care Provider [phone] Encounter Details Date Type Department Care Team (Late st Contact Info) Description 09/09/2024 Lab Requisition [facility] - Main Lab [address] [facility] [place] [address] Yaya Dobbins MD [address] [place] [address] Hyperlipidemia, unspecified Social History Tobacco [...] LAB CHEMISTRY METHOD 09/10/2024 9:35 AM EDT [facility] Potassium 4.2 3.5 - 5.5 mmol/L LAB CHEMISTRY METHOD 09/10/2024 9:35 AM EDT [facility] Chloride 113(H) 96 - 110 mmol/L LAB CHEMISTRY METHOD 09/10/2024 9:35 AM [facility] LAB CO2 26 21 - 32 mmol/L LAB CHEMISTRY METHOD 09/10/2024 9:35 AM [facility] LAB Anion Gap 5 3 - 11 LAB CHEMISTRY METHOD 09/10/2024 9:35 AM [facility] LAB Glucose 86 70 - 100 mg/dL LAB CHEMISTRY METHOD 09/10/2024 9:35 AM [facility] BUN 10 5 - 25 mg/dL LAB CHEMISTRY METHOD 09/10/2024 9:35 AM [facility] Creatinine 0.51 0.50 - 1.10 mg/dL LAB CHEMISTRY METHOD 09/10/2024 9:35 AM [facility] LAB eGFR 96 >=60 mL/min/1. 73m2 LAB CHEMISTRY METHOD 09/10/2024 9:35 AM [facility] LAB Comment:Calculation based on the Chronic Kidney Disease Epidemiology Collaboration (CKD-EPI) equation refit without adjustment for race. BUN/Creatinine Ratio 19.6 LAB CHEMISTRY METHOD 09/10/2024 9:35 AM [facility] LAB Calcium 9.1 8.5 - 10.5 mg/dL LAB CHEMISTRY METHOD 09/10/2024 9:35 AM [facility] LAB Blood Venous blood specimen / Unknown Venipuncture / Unknown 09/10/2024 4:58 AM EDT 09/10/2024 8:42 AM EDT us Yaya Dobbins MD LAB BLOOD ORDERABLES Final Resu lt [facility] [address] [place] [address], * (ABNORMAL) Complete blood count (09/10/2024 4:58 AM EDT) WBC 7.7 4.8 - 10.8 K/[facility] LAB HEMETOLOGY METHOD 09/10/2024 9:07 AM [facility] LAB RBC 3.00(L) 3.80 - 4.80 M/mcL LAB HEMETOLOGY METHOD 09/10/2024 9:07 AM [facility] Hemoglobin 9.5(L) 11.5 - 16.0 g/dL LAB HEMETOLOGY METHOD 09/10/2024 9:07 AM [facility] LAB Hematocrit 29.7(L) 35.0 - 47.0 % LAB HEMETOLOGY METHOD 09/10/2024 9:07 AM [facility] LAB MCV 98.3(H) 79.0 - 98.0 FL LAB HEMETOLOGY METHOD 09/10/2024 9:07 AM [facility] LAB MCH 31.5 27.0 - 32.0 pcg LAB HEMETOLOGY METHOD 09/10/2024 9:07 AM [facility] LAB MCHC 32.0 32.0 - 37.0 g/dL LAB HEMETOLOGY METHOD 09/10/2024 9:07 AM [facility] LAB RDW 14.1 11.0 - 15.0 % LAB HEMETOLOGY METHOD 09/10/2024 9:07 AM [facility] LAB Platelets 304 130 - 400 K/mcL LAB HEMETOLOGY METHOD 09/10/2024 9:07 AM [facility] LAB MPV 10.5 7.0 - 11.0 FL LAB HEMETOLOGY METHOD 09/10/2024 9:07 AM [facility] LAB NRBC 0.0 <1.0 % LAB HEMETOLOGY METHOD 09/10/2024 9:07 AM [facility] LAB NRBC Absolute 0.00 <0.10 K/mcL LAB HEMETOLOGY METHOD 09/10/2024 9:07 AM [facility] LAB Blood Venous blood specimen / Unknown Venipuncture / Unknown 09/10/2024 4:58 AM EDT 09/10/2024 8:45 AM EDT Yaya Dobbins MD LAB BLOOD ORDERABLES Final Resu lt [facility] [address] [place] [address], documented in this encounter Visit Diagnoses Diagnosis Hyperlipidemia, unspecified documented in this encounter Care Teams Hand Alterations Seamstress Relationship Specialty Start Date End Date Yaya Dobbins MD [address] [place] [address] PCP - General Internal Medicine 09/05/24 documented as of this encounter
--- OUTSIDE RECORDS SUMMARY | 2024-12-17 17:47 | XMS_ITS | Encounter Summary ---
Author Organization [facility] Address [address] [place] [address] Care Team Providers Care Pre Sales Architect Name Role Phone Yaya Dobbins MD Primary Care Provider Encounter Details Date Type Department Care Team (Late st Contact Info) Description 09/16/2024 Lab Requisition [facility] - Main Lab [address] [facility] [place] [address] Yaya Dobbins MD [address] [place] [address] Hyperlipidemia, unspecified Social History Tobacco [...] LAB CHEMISTRY METHOD 09/17/2024 9:[address] [facility] Potassium 4.1 3.5 - 5.5 mmol/L LAB CHEMISTRY METHOD 09/17/2024 9:[address] [facility] LAB Chloride [...] Resu lt [facility] [address] [place] [address], * (ABNORMAL) Complete blood count (09/17/2024 4:51 AM EDT) WBC 5.9 4.8 - 10.8 K/[facility] LAB HEMETOLOGY METHOD 09/17/2024 8:39 AM [...] MD LAB BLOOD ORDERABLES Final Resu lt [facility] [address] [place] [address], documented in this encounter Visit Diagnoses Diagnosis Hyperlipidemia, unspecified documented in this encounter Care Teams Pre Sales Architect Relationship Specialty Start Date End Date Yaya Dobbins MD [address] [place] [address] PCP - General Internal Medicine 09/05/24 documented as of this encounter
--- OUTSIDE RECORDS SUMMARY | 2024-12-17 17:47 | XMS_ITS | Clinical Summary ---
Author Organization [facility] Address [address] [place], [place] [id number] Phone Care Team Providers Care Tunnel Drier Operator Name Role Phone Rodolfo Stein MD Primary Care Provider [phone] Allergies Active Allergy Reactions Criticality Noted Date [...] topic Medical Devices Not on file Insurance [facility] [address] [place], [place] [id number] [facility] [address] [place] [place] [id number] [place] [id number] [facility] Care Teams Tunnel Drier Operator Relationship Specialty Start Date End Date Rodolfo Stein MD [address] [place] [id number] PCP - General Internal Medicine 01/22/14 Additional Source Comments The information contained in this document represents components of the legal health record. It is not the complete legal health record.[facility]
--- OUTSIDE RECORDS SUMMARY | 2024-12-17 17:47 | XMS_ITS | Encounter Summary ---
Author Organization [facility] Address [address] [place] [address] Care Team Providers Care Machinist Name Role Phone Yaya Dobbins MD Primary Care Provider [phone] Encounter Details Date Type Department Care Team (Late st Contact Info) Description 09/11/2024 Lab Requisition [facility] - Main Lab [address] [facility] [place] [address] Yaya Dobbins MD [address] [place] [address] Hyperlipidemia, unspecified Social History Tobacco [...] LAB CHEMISTRY METHOD 09/14/2024 1:49 PM EDT [facility] Potassium 4.0 3.5 - 5.5 mmol/L LAB CHEMISTRY METHOD 09/14/2024 1:49 PM EDT [facility] Chloride 112(H) 96 - 110 mmol/L LAB CHEMISTRY METHOD 09/14/2024 1:49 PM [facility] CO2 26 21 - 32 mmol/L LAB CHEMISTRY METHOD 09/14/2024 1:49 PM [facility] Anion Gap 7 3 - 11 LAB CHEMISTRY METHOD 09/14/2024 1:49 PM [facility] Glucose 72 70 - 100 mg/dL LAB CHEMISTRY METHOD 09/14/2024 1:49 PM [facility] BUN 12 5 - 25 mg/dL LAB CHEMISTRY METHOD 09/14/2024 1:49 PM [facility] Creatinine 0.64 0.50 - 1.10 mg/dL LAB CHEMISTRY METHOD 09/14/2024 1:49 PM [facility] LAB eGFR 91 >=60 mL/min/1. 73m2 LAB CHEMISTRY METHOD 09/14/2024 1:49 PM [facility] Comment:Calculation based on the Chronic Kidney Disease Epidemiology Collaboration (CKD-EPI) equation refit without adjustment for race. BUN/Creatinine Ratio 18.8 LAB CHEMISTRY METHOD 09/14/2024 1:49 PM [facility] Calcium 9.0 8.5 - 10.5 mg/dL LAB CHEMISTRY METHOD 09/14/2024 1:49 PM [facility] AST (SGOT) 43(H) 10 - 42 unit/L LAB CHEMISTRY METHOD 09/14/2024 1:49 PM [facility] ALT (SGPT) 31 10 - 60 unit/L LAB CHEMISTRY METHOD 09/14/2024 1:49 PM [facility] Alkaline Phosphatase 125(H) 42 - 121 unit/L LAB CHEMISTRY METHOD 09/14/2024 1:49 PM [facility] Total Protein 5.3(L) 6.0 - 8.0 g/dL LAB CHEMISTRY METHOD 09/14/2024 1:49 PM [facility] Albumin 2.9(L) 3.2 - 5.0 g/dL LAB CHEMISTRY METHOD 09/14/2024 1:49 PM EDT [facility] Total Bilirubin 0.5 0.0 - 1.4 mg/dL LAB CHEMISTRY METHOD 09/14/2024 1:49 PM [facility] Blood Venous blood specimen / Unknown Venipuncture / Unknown 09/14/2024 4:53 AM EDT 09/14/2024 10:55 AM EDT us Yaya Dobbins MD LAB BLOOD ORDERABLES Final Resu lt [facility] [address] [place] [address], * (ABNORMAL) Complete blood count (09/14/2024 4:53 AM EDT) WBC 7.1 4.8 - 10.8 K/mcL LAB HEMETOLOGY METHOD 09/14/2024 11:19 AM [facility] RBC 3.20(L) 3.80 - 4.80 M/mcL LAB HEMETOLOGY METHOD 09/14/2024 11:19 AM [facility] Hemoglobin 10.0(L) 11.5 - 16.0 g/dL LAB HEMETOLOGY METHOD 09/14/2024 11:19 AM [facility] Hematocrit 32.0(L) 35.0 - 47.0 % LAB HEMETOLOGY METHOD 09/14/2024 11:19 AM [facility] MCV 100.6(H) 79.0 - 98.0 FL LAB HEMETOLOGY METHOD 09/14/2024 11:19 AM [facility] MCH 31.4 27.0 - 32.0 pcg LAB HEMETOLOGY METHOD 09/14/2024 11:19 AM [facility] MCHC 31.3(L) 32.0 - 37.0 g/dL LAB HEMETOLOGY METHOD 09/14/2024 11:19 AM EDT [facility] RDW 14.9 11.0 - 15.0 % LAB HEMETOLOGY METHOD 09/14/2024 11:19 AM EDT [facility] Platelets 321 130 - 400 K/mcL LAB HEMETOLOGY METHOD 09/14/2024 11:19 AM EDT [facility] MPV 10.2 7.0 - 11.0 FL LAB HEMETOLOGY METHOD 09/14/2024 11:19 AM EDT [facility] NRBC 0.0 <1.0 % LAB HEMETOLOGY METHOD 09/14/2024 11:19 AM EDT [facility] NRBC Absolute 0.00 <0.10 K/mcL LAB HEMETOLOGY METHOD 09/14/2024 11:19 AM EDT [facility] Blood Venous blood specimen / Unknown Venipuncture / Unknown 09/14/2024 4:53 AM EDT 09/14/2024 10:54 AM EDT Yaya Dobbins MD LAB BLOOD ORDERABLES Final Resu lt [facility] [address] [place] [address], documented in this encounter Visit Diagnoses Diagnosis Hyperlipidemia, unspecified documented in this encounter Care Teams Machinist Relationship Specialty Start Date End Date Yaya Dobbins MD [address] [place] [address] PCP - General Internal Medicine 09/05/24 documented as of this encounter
--- OUTSIDE RECORDS SUMMARY | 2024-12-17 17:47 | XMS_ITS | Encounter Summary ---
Author Organization [facility] Address [address] [place] [address] Care Team Providers Care Middle [employer] Director Name Role Phone Yaya Dobbins MD Primary Care Provider [phone] Encounter Details Date Type Department Care Team (Late st Contact Info) Description 09/07/2024 Lab Requisition [facility] - Main Lab [address] [facility] [place] [address] Yaya Dobbins MD [address] [place] [address] Hypothyroidism, unspecified; Hyperlipidemia, unspecified Social [...] LAB CHEMISTRY METHOD 09/07/2024 12:51 PM EDT [facility] Potassium 4.0 3.5 - 5.5 mmol/L LAB CHEMISTRY METHOD 09/07/2024 12:51 PM EDT [facility] Chloride 111(H) 96 - 110 mmol/L LAB CHEMISTRY METHOD 09/07/2024 12:51 PM [facility] CO2 26 21 - 32 mmol/L LAB CHEMISTRY METHOD 09/07/2024 12:51 PM [facility] Anion Gap 7 3 - 11 LAB CHEMISTRY METHOD 09/07/2024 12:51 PM [facility] Glucose 80 70 - 100 mg/dL LAB CHEMISTRY METHOD 09/07/2024 12:51 PM [facility] BUN 10 5 - 25 mg/dL LAB CHEMISTRY METHOD 09/07/2024 12:51 PM [facility] Creatinine 0.60 0.50 - 1.10 mg/dL LAB CHEMISTRY METHOD 09/07/2024 12:51 PM [facility] eGFR 92 >=60 mL/min/1. 73m2 LAB CHEMISTRY METHOD 09/07/2024 12:51 PM [facility] Comment:Calculation based on the Chronic Kidney Disease Epidemiology Collaboration (CKD-EPI) equation refit without adjustment for race. BUN/Creatinine Ratio 16.7 LAB CHEMISTRY METHOD 09/07/2024 12:51 PM [facility] Calcium 8.6 8.5 - 10.5 mg/dL LAB CHEMISTRY METHOD 09/07/2024 12:51 PM [facility] AST (SGOT) 48(H) 10 - 42 unit/L LAB CHEMISTRY METHOD 09/07/2024 12:51 PM [facility] ALT (SGPT) 32 10 - 60 unit/L LAB CHEMISTRY METHOD 09/07/2024 12:51 PM [facility] Alkaline Phosphatase 106 42 - 121 unit/L LAB CHEMISTRY METHOD 09/07/2024 12:51 PM [facility] Total Protein 5.4(L) 6.0 - 8.0 g/dL LAB CHEMISTRY METHOD 09/07/2024 12:51 PM [facility] Albumin 2.9(L) 3.2 - 5.0 g/dL LAB CHEMISTRY METHOD 09/07/2024 12:51 PM EDT [facility] Total Bilirubin 0.9 0.0 - 1.4 mg/dL LAB CHEMISTRY METHOD 09/07/2024 12:51 PM EDT [facility] Blood Venous blood specimen / Unknown Venipuncture / Unknown 09/07/2024 5:09 AM EDT 09/07/2024 11:28 AM EDT us Yaya Dobbins MD LAB BLOOD ORDERABLES Final Resu lt [facility] [address] [place] [address], [place] [phone] * (ABNORMAL) Complete blood count (09/07/2024 5:09 AM EDT) WBC 8.2 4.8 - 10.8 K/mcL LAB HEMETOLOGY METHOD 09/07/2024 1:09 PM EDT [facility] RBC 3.10(L) 3.80 - 4.80 M/mcL LAB [facility] Hemoglobin 9.3(L) 11.5 - 16.0 g/dL LAB HEMETOLOGY METHOD 09/07/2024 1:09 PM EDT [facility] Hematocrit 29.6(L) 35.0 - 47.0 % LAB HEMETOLOGY METHOD 09/07/2024 1:09 PM EDT [facility] MCV 97.0 79.0 - 98.0 FL LAB [facility]OLOG[facility]/07[facility]24 [facility] MCH 30.5 27.0 - 32.0 pcg LAB HEMETOLOGY METHOD 09/07/2024 1:09 PM EDT [facility] MCHC 31.4(L) 32.0 - 37.0 g/dL LAB HEMETOLOGY METHOD 09/07/2024 1:09 PM EDT [facility] RDW 13.6 11.0 - 15.0 % LAB HEMETOLOGY METHOD 09/07/2024 1:09 PM EDT [facility] Platelets 229 130 - 400 K/mcL LAB HEMETOLOGY METHOD 09/07/2024 1:09 PM EDT [facility] MPV 10.7 7.0 - 11.0 FL LAB HEMETOLOGY METHOD 09/07/2024 1:09 PM EDT [facility] NRBC 0.0 <1.0 % LAB HEMETOLOGY METHOD 09/07/2024 1:09 PM EDT [facility] NRBC Absolute 0.00 <0.10 K/mcL LAB HEMETOLOGY METHOD 09/07/2024 1:09 PM EDT [facility] Blood Venous blood specimen / Unknown Venipuncture / Unknown 09/07/2024 5:09 AM EDT 09/07/2024 11:28 AM EDT Yaya Dobbins MD LAB BLOOD ORDERABLES Final Resu lt [facility] [address] [place] [address], [place] [phone] documented in this encounter Visit Diagnoses Diagnosis Hypothyroidism, unspecified Hyperlipidemia, unspecified documented in this encounter Care Teams Middle School Director Relationship Specialty Start Date End Date Yaya Dobbins MD [address] [place] [address] PCP - General Internal Medicine 09/05/24 documented as of this encounter
== END 2024-12-17 14:03 | disposition home or self-care (01) ==
LOC: HO.HMGCX 14:02
PROVIDERS: PCP Physician Assistant Medical; Visit Provider Nurse Practitioner Family
DX: N20.0 Calculus of kidney (principal)
CPT/HCPCS: 76770

== ENCOUNTER → 2024-12-17 14:04 | Outpatient (BNV) | payer MEDICARE, SELFPAY | PROVIDERS: PCP Physician Assistant Medical; Visit Provider Specialist | DX: N20.0 Calculus of kidney (principal) | CPT/HCPCS: 76770 ==

== ENCOUNTER 2024-12-29 13:23 | Outpatient (REF) | payer MEDICARE, SELFPAY ==
--- OUTSIDE RECORDS SUMMARY | 2024-12-29 17:16 | XMS_ITS | Encounter Summary ---
Author Organization [facility] Address [address] [place] [address] Care Team Providers Care Sales Agent Insurance Name Role Phone Yaya Dobbins MD Primary Care Provider [phone] Encounter Details Date Type Department Care Team (Late st Contact Info) Description 09/09/2024 Lab Requisition [facility] - Main Lab [address] [facility] [employer] [place] [address] Yaya Dobbins MD [address] [place] [address] Hyperlipidemia, unspecified Social History Tobacco [...] LAB CHEMISTRY METHOD 09/10/2024 9:35 AM EDT [facility] Potassium 4.2 3.5 - 5.5 mmol/L LAB CHEMISTRY METHOD 09/10/2024 9:35 AM EDT [facility] Chloride 113(H) 96 - 110 mmol/L LAB CHEMISTRY METHOD 09/10/2024 9:35 AM [facility] CO2 26 21 - 32 mmol/L LAB CHEMISTRY METHOD 09/10/2024 9:35 AM [facility] Anion Gap 5 3 - 11 LAB CHEMISTRY METHOD 09/10/2024 9:35 AM [facility] Glucose 86 70 - 100 mg/dL LAB CHEMISTRY METHOD 09/10/2024 9:35 AM [facility] BUN 10 5 - 25 mg/dL LAB CHEMISTRY METHOD 09/10/2024 9:35 AM [facility] Creatinine 0.51 0.50 - 1.10 mg/dL LAB CHEMISTRY METHOD 09/10/2024 9:35 AM [facility] eGFR 96 >=60 mL/min/1. 73m2 LAB CHEMISTRY METHOD 09/10/2024 9:35 AM [facility] Comment:Calculation based on the Chronic Kidney Disease Epidemiology Collaboration (CKD-EPI) equation refit without adjustment for race. BUN/Creatinine Ratio 19.6 LAB CHEMISTRY METHOD 09/10/2024 9:35 AM [facility] Calcium 9.1 8.5 - 10.5 mg/dL LAB CHEMISTRY METHOD 09/10/2024 9:35 AM [facility] Blood Venous blood specimen / Unknown Venipuncture / Unknown 09/10/2024 4:58 AM EDT 09/10/2024 8:42 AM EDT us Yaya Dobbins MD LAB BLOOD ORDERABLES Final Resu lt [facility] [address] [place] [address], * (ABNORMAL) Complete blood count (09/10/2024 4:58 AM EDT) WBC 7.7 4.8 - 10.8 K/[facility] LAB HEMETOLOGY METHOD 09/10/2024 9:07 AM [facility] RBC 3.00(L) 3.80 - 4.80 M/mcL LAB HEMETOLOGY METHOD 09/10/2024 9:07 AM [facility] Hemoglobin 9.5(L) 11.5 - 16.0 g/dL LAB HEMETOLOGY METHOD 09/10/2024 9:07 AM [facility] Hematocrit 29.7(L) 35.0 - 47.0 % LAB HEMETOLOGY METHOD 09/10/2024 9:07 AM [facility] MCV 98.3(H) 79.0 - 98.0 FL LAB HEMETOLOGY METHOD 09/10/2024 9:07 AM [facility] MCH 31.5 27.0 - 32.0 pcg LAB HEMETOLOGY METHOD 09/10/2024 9:07 AM [facility] MCHC 32.0 32.0 - 37.0 g/dL LAB HEMETOLOGY METHOD 09/10/2024 9:07 AM [facility] RDW 14.1 11.0 - 15.0 % LAB HEMETOLOGY METHOD 09/10/2024 9:07 AM [facility] Platelets 304 130 - 400 K/mcL LAB HEMETOLOGY METHOD 09/10/2024 9:07 AM [facility] MPV 10.5 7.0 - 11.0 FL LAB HEMETOLOGY METHOD 09/10/2024 9:07 AM [facility] NRBC 0.0 <1.0 % LAB HEMETOLOGY METHOD 09/10/2024 9:07 AM [facility] NRBC Absolute 0.00 <0.10 K/mcL LAB HEMETOLOGY METHOD 09/10/2024 9:07 AM [facility] Blood Venous blood specimen / Unknown Venipuncture / Unknown 09/10/2024 4:58 AM EDT 09/10/2024 8:45 AM EDT Yaya Dobbins MD LAB BLOOD ORDERABLES Final Resu lt [facility] [address] [place] [address], documented in this encounter Visit Diagnoses Diagnosis Hyperlipidemia, unspecified documented in this encounter Care Teams Sales Agent Insurance Relationship Specialty Start Date End Date Yaya Dobbins MD [address] [place] [address] PCP - General Internal Medicine 09/05/24 documented as of this encounter
--- OUTSIDE RECORDS SUMMARY | 2024-12-29 17:16 | XMS_ITS | Encounter Summary ---
Author Organization [facility] Address [address] [place] [address] Care Team Providers Care Power Plant Mechanic Name Role Phone Yaya Dobbins MD Primary Care Provider [phone] Encounter Details Date Type Department Care Team (Late st Contact Info) Description 09/07/2024 Lab Requisition [facility] - Main Lab [address] [facility] [place] [address] Yaya Dobbins MD [address] [place] [address] Hypothyroidism, unspecified; Hyperlipidemia, unspecified Social [...] LAB CHEMISTRY METHOD 09/07/2024 12:51 PM EDT [facility] Potassium 4.0 3.5 - 5.5 mmol/L LAB CHEMISTRY METHOD 09/07/2024 12:51 PM EDT [facility] Chloride 111(H) 96 - 110 mmol/L LAB CHEMISTRY METHOD 09/07/2024 12:51 PM [facility] CO2 26 21 - 32 mmol/L LAB CHEMISTRY METHOD 09/07/2024 12:51 PM [facility] Anion Gap 7 3 - 11 LAB CHEMISTRY METHOD 09/07/2024 12:51 PM [facility] Glucose 80 70 - 100 mg/dL LAB CHEMISTRY METHOD 09/07/2024 12:51 PM [facility] BUN 10 5 - 25 mg/dL LAB CHEMISTRY METHOD 09/07/2024 12:51 PM [facility] Creatinine 0.60 0.50 - 1.10 mg/dL LAB CHEMISTRY METHOD 09/07/2024 12:51 PM [facility] eGFR 92 >=60 mL/min/1. 73m2 LAB CHEMISTRY METHOD 09/07/2024 12:51 PM [facility] Comment:Calculation based on the Chronic Kidney Disease Epidemiology Collaboration (CKD-EPI) equation refit without adjustment for race. BUN/Creatinine Ratio 16.7 LAB CHEMISTRY METHOD 09/07/2024 12:51 PM [facility] Calcium 8.6 8.5 - 10.5 mg/dL LAB CHEMISTRY METHOD 09/07/2024 12:51 PM [facility] AST (SGOT) 48(H) 10 - 42 unit/L LAB CHEMISTRY METHOD 09/07/2024 12:51 PM [facility] ALT (SGPT) 32 10 - 60 unit/L LAB CHEMISTRY METHOD 09/07/2024 12:51 PM [facility] Alkaline Phosphatase 106 42 - 121 unit/L LAB CHEMISTRY METHOD 09/07/2024 12:51 PM [facility] Total Protein 5.4(L) 6.0 - 8.0 g/dL LAB CHEMISTRY METHOD 09/07/2024 12:51 PM [facility] Albumin 2.9(L) 3.2 - 5.0 g/dL LAB CHEMISTRY METHOD 09/07/2024 12:51 PM EDT [facility] Total Bilirubin 0.9 0.0 - 1.4 mg/dL LAB CHEMISTRY METHOD 09/07/2024 12:51 PM EDT [facility] Blood Venous blood specimen / Unknown Venipuncture / Unknown 09/07/2024 5:09 AM EDT 09/07/2024 11:28 AM EDT us Yaya Dobbins MD LAB BLOOD ORDERABLES Final Resu lt [facility] [address] [place] [address], [place] [phone] * (ABNORMAL) Complete blood count (09/07/2024 5:09 AM EDT) WBC 8.2 4.8 - 10.8 K/mcL LAB HEMETOLOGY METHOD 09/07/2024 1:09 PM EDT [facility] RBC 3.10(L) 3.80 - 4.80 M/mcL LAB HEMETOLOGY METHOD [facility]/07[facility]24 [facility] Hemoglobin 9.3(L) 11.5 - 16.0 g/dL LAB HEMETOLOGY METHOD 09/07/2024 1:09 PM EDT [facility] Hematocrit 29.6(L) 35.0 - 47.0 % LAB HEMETOLOGY METHOD 09/07/2024 1:09 PM EDT [facility] MCV 97.0 79.0 - 98.0 FL LAB HEMETOLOGY METHOD 09/07/2024 1:[facility] MCH 30.5 27.0 - 32.0 pcg LAB HEMETOLOGY METHOD 09/07/2024 1:09 PM EDT [facility] MCHC 31.4(L) 32.0 - 37.0 g/dL LAB HEMETOLOGY METHOD 09/07/2024 1:09 PM EDT [facility] RDW 13.6 11.0 - 15.0 % LAB HEMETOLOGY METHOD 09/07/2024 1:09 PM EDT [facility] Platelets 229 130 - 400 K/mcL LAB HEMETOLOGY METHOD 09/07/2024 1:09 PM EDT [facility] MPV 10.7 7.0 - 11.0 FL LAB HEMETOLOGY METHOD 09/07/2024 1:09 PM EDT [facility] NRBC 0.0 <1.0 % LAB HEMETOLOGY METHOD 09/07/2024 1:09 PM EDT [facility] NRBC Absolute 0.00 <0.10 K/mcL LAB HEMETOLOGY METHOD 09/07/2024 1:09 PM EDT [facility] Blood Venous blood specimen / Unknown Venipuncture / Unknown 09/07/2024 5:09 AM EDT 09/07/2024 11:28 AM EDT Yaya Dobbins MD LAB BLOOD ORDERABLES Final Resu lt [facility] [address] [place] [address], [place] [phone] documented in this encounter Visit Diagnoses Diagnosis Hypothyroidism, unspecified Hyperlipidemia, unspecified documented in this encounter Care Teams Power Plant Mechanic Relationship Specialty Start Date End Date Yaya Dobbins MD [address] [place] [address] PCP - General Internal Medicine 09/05/24 documented as of this encounter
--- OUTSIDE RECORDS SUMMARY | 2024-12-29 17:16 | XMS_ITS | Clinical Summary ---
Author Organization [address] Address [address] [place] [address] Phone Care Team Providers Care Log Tumbler Name Role Phone Yaya Dobbins MD Primary Care Provider [phone] Social History Tobacco Use Types Packs/Day Years [...] Control Test (HGBA1C) 2024 COVID-19 Vaccine ( - season) 2024 Influenza Vaccine (#1) 2024 Diabetes: [...] Routine 09/21/2024 4:46 AM EDT Hyperlipidemia, unspecified from Last 3 Months or Most Recently Relevant to Health Maintenance Results * (ABNORMAL) Comprehensive metabolic panel (09/21/2024 [...] MD LAB BLOOD ORDERABLES Final [facility] [address] [place] [address], from Last 3 Months or Most Recently Relevant to Health Maintenance Insurance [facility] Care Teams Log Tumbler Relationship Specialty Start Date End Date Yaya Dobbins MD [address] [place] [address] PCP - General Internal Medicine 09/05/24
--- OUTSIDE RECORDS SUMMARY | 2024-12-29 17:16 | XMS_ITS | Clinical Summary ---
Author Organization [facility] Address [address] [place], [place] [id number] Phone Care Team Providers Care Paint Roller Covermaker Name Role Phone Rodolfo Stein MD Primary Care Provider [phone] Allergies Active Allergy Reactions Criticality Noted Date [...] Medical Devices Not on file Insurance [facility] [address] [place], [place] [address]O [facility] [address] [place] [address] [place] [address] [facility] Care Teams Paint Roller Covermaker Relationship Specialty Start Date End Date Rodolfo Stein MD [address] [place] [phone] PCP - General Internal Medicine 01/22/14 Additional Source Comments The information contained in this document represents components of the legal health record. It is not the complete legal health record.[facility]
--- OUTSIDE RECORDS SUMMARY | 2024-12-29 17:16 | XMS_ITS | Encounter Summary ---
Author Organization [facility] Address [address] [place] [address] Care Team Providers Care Gin Feeder Name Role Phone Yaya Dobbins MD Primary Care Provider [phone] Encounter Details Date Type Department Care Team (Late st Contact Info) Description 09/11/2024 Lab Requisition [facility] - Main Lab [address] [facility] [place] [address] Yaya Dobbins MD [address] [place] [address] Hyperlipidemia, unspecified Social History Tobacco [...] mmol/L LAB CHEMISTRY METHOD 09/14/2024 1:49 PM [facility] CO2 26 21 - 32 mmol/L LAB CHEMISTRY METHOD 09/14/2024 1:49 PM [facility] Anion Gap 7 3 - 11 LAB CHEMISTRY METHOD 09/14/2024 1:49 PM [facility] Glucose 72 70 - 100 mg/dL LAB CHEMISTRY METHOD 09/14/2024 1:49 PM [facility] BUN 12 5 - 25 mg/dL LAB CHEMISTRY METHOD 09/14/2024 1:49 PM [facility] Creatinine 0.64 0.50 - 1.10 mg/dL LAB CHEMISTRY METHOD 09/14/2024 1:49 PM [facility] eGFR 91 >=60 mL/min/1. 73m2 LAB CHEMISTRY METHOD 09/14/2024 1:49 PM [facility] Comment:Calculation based on the Chronic Kidney Disease Epidemiology Collaboration (CKD-EPI) equation refit without adjustment for race. BUN/Creatinine Ratio 18.8 LAB CHEMISTRY METHOD 09/14/2024 1:49 PM [facility] Calcium 9.0 8.5 - 10.5 mg/dL LAB CHEMISTRY METHOD 09/14/2024 1:49 PM [facility] AST (SGOT) 43(H) 10 - 42 unit/L LAB CHEMISTRY METHOD 09/14/2024 1:49 PM [facility] ALT (SGPT) 31 10 - 60 unit/L LAB CHEMISTRY METHOD 09/14/2024 1:49 PM [facility] Alkaline Phosphatase 125(H) 42 - 121 unit/L LAB CHEMISTRY METHOD 09/14/2024 1:49 PM [facility] Total Protein 5.3(L) 6.0 - 8.0 g/dL LAB CHEMISTRY METHOD 09/14/2024 1:49 PM [facility] Albumin 2.9(L) 3.2 - 5.0 g/dL LAB CHEMISTRY METHOD 09/14/2024 1:49 PM EDT [facility] Total Bilirubin 0.5 0.0 - 1.4 mg/dL LAB CHEMISTRY METHOD 09/14/2024 1:49 PM [facility] Blood Venous blood specimen / Unknown Venipuncture / Unknown 09/14/2024 4:53 AM EDT 09/14/2024 10:55 AM EDT us Yaya Dobbins MD LAB BLOOD ORDERABLES Final Resu lt [facility] [address] [place] [address], * (ABNORMAL) Complete blood count (09/14/2024 4:53 AM EDT) WBC 7.1 4.8 - 10.8 K/mcL LAB HEMETOLOGY METHOD 09/14/2024 11:19 AM [facility] RBC 3.20(L) 3.80 - 4.80 M/mcL LAB HEMETOLOGY METHOD 09/14/2024 11:19 AM [facility] Hemoglobin 10.0(L) 11.5 - 16.0 g/dL LAB HEMETOLOGY METHOD 09/14/2024 11:19 AM [facility] Hematocrit 32.0(L) 35.0 - 47.0 % LAB HEMETOLOGY METHOD 09/14/2024 11:19 AM [facility] MCV 100.6(H) 79.0 - 98.0 FL LAB HEMETOLOGY METHOD 09/14/2024 11:19 AM [facility] MCH 31.4 27.0 - 32.0 pcg LAB HEMETOLOGY METHOD 09/14/2024 11:19 AM [facility] MCHC 31.3(L) 32.0 - 37.0 [...] Resu lt [facility] [address] [place] [address], documented in this encounter Visit Diagnoses Diagnosis Hyperlipidemia, unspecified documented in this encounter Care Teams Gin Feeder Relationship Specialty Start Date End Date Yaya Dobbins MD [address] [place] [address] PCP - General Internal Medicine 09/05/24 documented as of this encounter
--- OUTSIDE RECORDS SUMMARY | 2024-12-29 17:16 | XMS_ITS | Encounter Summary ---
Author Organization [facility] Address [address] [place] [address] Care Team Providers Care Product Safety Technician Name Role Phone Yaya Dobbins MD Primary Care Provider [phone] Encounter Details Date Type Department Care Team (Late st Contact Info) Description 09/19/2024 Lab Requisition [facility] - Main Lab [address] [facility] [place] [address] Yaya Dobbins MD [address] [place] [address] Hyperlipidemia, unspecified Social History Tobacco [...] mmol/L LAB CHEMISTRY METHOD 09/21/2024 11:20 AM [facility] CO2 22 21 - 32 mmol/L LAB CHEMISTRY METHOD 09/21/2024 11:20 AM [facility] Anion Gap 8 3 - 11 LAB CHEMISTRY METHOD 09/21/2024 11:20 AM [facility] Glucose 82 70 - 100 mg/dL LAB CHEMISTRY METHOD 09/21/2024 11:20 AM [facility] BUN 13 5 - 25 mg/dL LAB CHEMISTRY METHOD 09/21/2024 11:20 AM [facility] Creatinine 0.61 0.50 - 1.10 mg/dL LAB CHEMISTRY METHOD 09/21/2024 11:20 AM [facility] eGFR 92 >=60 mL/min/1. 73m2 LAB CHEMISTRY METHOD 09/21/2024 11:20 AM [facility] Comment:Calculation based on the Chronic Kidney Disease Epidemiology Collaboration (CKD-EPI) equation refit without adjustment for race. BUN/Creatinine Ratio 21.3 LAB CHEMISTRY METHOD 09/21/2024 11:20 AM [facility] Calcium 9.0 8.5 - 10.5 mg/dL LAB CHEMISTRY METHOD 09/21/2024 11:20 AM [facility] AST (SGOT) 40 10 - 42 unit/L LAB CHEMISTRY METHOD 09/21/2024 11:20 AM [facility] ALT (SGPT) 31 10 - 60 unit/L LAB CHEMISTRY METHOD 09/21/2024 11:20 AM [facility] Alkaline Phosphatase 140(H) 42 - 121 unit/L LAB CHEMISTRY METHOD 09/21/2024 11:20 AM [facility] Total Protein 5.3(L) 6.0 - 8.0 g/dL LAB CHEMISTRY METHOD 09/21/2024 11:20 AM [facility] Albumin 3.1(L) 3.2 - 5.0 g/dL LAB CHEMISTRY METHOD 09/21/2024 11:20 AM [facility] Total Bilirubin 0.5 0.0 - 1.4 mg/dL LAB CHEMISTRY METHOD 09/21/2024 11:20 AM [facility] Blood Venous blood specimen / Unknown Venipuncture / Unknown 09/21/2024 4:46 AM EDT 09/21/2024 11:05 AM EDT us Yaya Dobbins MD LAB BLOOD ORDERABLES Final Resu lt [facility] [address] [place] [address], * (ABNORMAL) Complete blood count (09/21/2024 4:46 AM EDT) WBC 5.6 4.8 - 10.8 K/mcL LAB HEMETOLOGY METHOD 09/21/2024 10:22 AM [facility] RBC 3.10(L) 3.80 - 4.80 M/mcL LAB HEMETOLOGY METHOD 09/21/2024 10:22 AM [facility] Hemoglobin 9.8(L) 11.5 - 16.0 g/dL LAB HEMETOLOGY METHOD 09/21/2024 10:22 AM [facility] Hematocrit 31.4(L) 35.0 - 47.0 % LAB HEMETOLOGY METHOD 09/21/2024 10:22 AM [facility] MCV 101.0(H) 79.0 - 98.0 FL LAB HEMETOLOGY METHOD 09/21/2024 10:22 AM [facility] MCH 31.5 27.0 - 32.0 pcg LAB HEMETOLOGY METHOD 09/21/2024 10:22 AM [facility] MCHC 31.2(L) 32.0 - 37.0 [...] Resu lt [facility] [address] [place] [address], documented in this encounter Visit Diagnoses Diagnosis Hyperlipidemia, unspecified documented in this encounter Care Teams Product Safety Technician Relationship Specialty Start Date End Date Yaya Dobbins MD [address] [place] [address] PCP - General Internal Medicine 09/05/24 documented as of this encounter
--- OUTSIDE RECORDS SUMMARY | 2024-12-29 17:16 | XMS_ITS | Encounter Summary ---
Author Organization [facility] Address [address] [place] [address] Care Team Providers Care Senior Physical Therapist Name Role Phone Yaya Dobbins MD Primary Care Provider [phone] Encounter Details Date Type Department Care Team (Late st Contact Info) Description 09/16/2024 Lab Requisition [facility] - Main Lab [address] [facility] [employer] [place] [address] Yaya Dobbins MD [address] [place] [address] Hyperlipidemia, unspecified Social History Tobacco [...] LAB CHEMISTRY METHOD 09/17/2024 9:16 AM EDT [facility] LAB Potassium 4.1 3.5 - 5.5 mmol/L LAB CHEMISTRY METHOD 09/17/2024 9:16 AM EDT [facility] LAB Chloride 114(H) 96 - [...] Resu lt [facility] LAB [address] [place] [address], * (ABNORMAL) Complete blood count (09/17/2024 4:51 AM EDT) WBC 5.9 4.8 - 10.8 K/[facility] LAB HEMETOLOGY METHOD 09/17/2024 8:39 AM [facility] LAB RBC 3.30(L) 3.80 - 4.80 M/mcL LAB HEMETOLOGY METHOD 09/17/2024 8:39 AM [facility] LAB Hemoglobin 10.1(L) 11.5 - 16.0 g/dL LAB HEMETOLOGY METHOD 09/17/2024 8:39 AM [facility] LAB Hematocrit 32.4(L) 35.0 - 47.0 % LAB HEMETOLOGY METHOD 09/17/2024 8:39 AM [facility] LAB MCV 99.7(H) 79.0 - 98.0 FL LAB HEMETOLOGY METHOD 09/17/2024 8:39 AM [facility] LAB MCH 31.1 27.0 - 32.0 pcg LAB HEMETOLOGY METHOD 09/17/2024 8:39 AM [facility] LAB MCHC 31.2(L) 32.0 - 37.0 g/dL LAB HEMETOLOGY METHOD 09/17/2024 8:39 AM [facility] LAB RDW 15.2(H) 11.0 - 15.0 % LAB HEMETOLOGY METHOD 09/17/2024 8:39 AM [facility] LAB Platelets 324 130 - 400 K/mcL LAB HEMETOLOGY METHOD 09/17/2024 8:39 AM [facility] LAB MPV 10.1 7.0 - 11.0 FL LAB HEMETOLOGY METHOD 09/17/2024 8:39 AM [facility] LAB NRBC 0.0 <1.0 % LAB HEMETOLOGY METHOD 09/17/2024 8:39 AM [facility] LAB NRBC Absolute 0.00 <0.10 K/mcL LAB HEMETOLOGY METHOD 09/17/2024 8:39 AM [facility] LAB Blood Venous blood specimen / Unknown Venipuncture / Unknown 09/17/2024 4:51 AM EDT 09/17/2024 7:42 AM EDT Yaya Dobbins MD LAB BLOOD ORDERABLES Final Resu lt [facility] LAB [address] [place] [address], documented in this encounter Visit Diagnoses Diagnosis Hyperlipidemia, unspecified documented in this encounter Care Teams Senior Physical Therapist Relationship Specialty Start Date End Date Yaya Dobbins MD [address] [place] [address] PCP - General Internal Medicine 09/05/24 documented as of this encounter
--- OUTSIDE RECORDS SUMMARY | 2024-12-29 17:16 | XMS_ITS | Encounter Summary ---
Author Organization [facility] Address [address] [place] [address] Care Team Providers Care Commercial Leasing Agent Name Role Phone Yaya Dobbins MD Primary Care Provider [phone] Encounter Details Date Type Department Care Team (Late st Contact Info) Description 09/05/2024 Lab Requisition [facility] - Main Lab [address] [facility] [place] [address] Yaya Dobbins MD [address] [place] [address] Hyperlipidemia, unspecified; Hypothyroidism, unspecified Social [...] LAB CHEMISTRY METHOD 09/05/2024 10:48 AM EDT [facility] LAB Potassium 4.1 3.5 - 5.5 mmol/L LAB CHEMISTRY METHOD 09/05/2024 10:48 AM EDT [facility] LAB Chloride 109 96 - 110 mmol/L LAB CHEMISTRY METHOD 09/05/2024 10:48 AM [facility] LAB CO2 28 21 - 32 mmol/L LAB CHEMISTRY METHOD 09/05/2024 10:48 AM [facility] LAB Anion Gap 5 3 - 11 LAB CHEMISTRY METHOD 09/05/2024 10:48 AM [facility] LAB Glucose 85 70 - 100 mg/dL LAB CHEMISTRY METHOD 09/05/2024 10:48 AM [facility] LAB BUN 11 5 - 25 mg/dL LAB CHEMISTRY METHOD 09/05/2024 10:48 AM [facility] LAB Creatinine 0.60 0.50 - 1.10 mg/dL LAB CHEMISTRY METHOD 09/05/2024 10:48 AM [facility] LAB eGFR 92 >=60 mL/min/1. 73m2 LAB CHEMISTRY METHOD 09/05/2024 10:48 AM [facility] LAB Comment:Calculation based on the Chronic Kidney Disease Epidemiology Collaboration (CKD-EPI) equation refit without adjustment for race. BUN/Creatinine Ratio 18.3 LAB CHEMISTRY METHOD 09/05/2024 10:48 AM [facility] LAB Calcium 8.8 8.5 - 10.5 mg/dL LAB CHEMISTRY METHOD 09/05/2024 10:48 AM [facility] LAB AST (SGOT) 55(H) 10 - 42 unit/L LAB CHEMISTRY METHOD 09/05/2024 10:48 AM [facility] LAB ALT (SGPT) 30 10 - 60 unit/L LAB CHEMISTRY METHOD 09/05/2024 10:48 AM [facility] LAB Alkaline Phosphatase 84 42 - 121 unit/L LAB CHEMISTRY METHOD 09/05/2024 10:48 AM [facility] LAB Total Protein 5.3(L) 6.0 - 8.0 g/dL LAB CHEMISTRY METHOD 09/05/2024 10:48 AM [facility] LAB Albumin 2.8(L) 3.2 - 5.0 g/dL LAB CHEMISTRY METHOD 09/05/2024 10:48 AM EDT [facility] LAB Total Bilirubin 0.9 0.0 - 1.4 mg/dL LAB CHEMISTRY METHOD 09/05/2024 10:48 AM [facility] LAB Blood Venous blood specimen / Unknown Venipuncture / Unknown 09/05/2024 6:49 AM EDT 09/05/2024 9:23 AM EDT us Yaya Dobbins MD LAB BLOOD ORDERABLES Final Resu lt [facility] LAB [address] [place] [address], [place] [phone] * (ABNORMAL) Complete blood count (09/05/2024 6:49 AM EDT) WBC 8.4 4.8 - 10.8 K/mcL LAB HEMETOLOGY METHOD 09/05/2024 10:27 AM [facility] LAB RBC 3.10(L) 3.80 - 4.80 M/mcL LAB HEMETOLOGY METHOD 09/05/2024 10:27 AM [facility] LAB Hemoglobin 9.4(L) 11.5 - 16.0 g/dL LAB HEMETOLOGY METHOD 09/05/2024 10:27 AM [facility] LAB Hematocrit 28.8(L) 35.0 - 47.0 % LAB HEMETOLOGY METHOD 09/05/2024 10:27 AM [facility] LAB MCV 92.9 79.0 - 98.0 FL LAB HEMETOLOGY METHOD 09/05/2024 10:27 AM [facility] LAB MCH 30.3 27.0 - 32.0 pcg LAB HEMETOLOGY METHOD 09/05/2024 10:27 AM [facility] LAB MCHC 32.6 32.0 - 37.0 g/dL LAB HEMETOLOGY METHOD 09/05/2024 10:27 AM EDT [facility] LAB RDW 13.0 11.0 - 15.0 % LAB HEMETOLOGY METHOD 09/05/2024 10:27 AM EDT [facility] LAB Platelets 194 130 - 400 K/mcL LAB HEMETOLOGY METHOD 09/05/2024 10:27 AM EDT [facility] LAB MPV 11.2(H) 7.0 - 11.0 FL LAB HEMETOLOGY METHOD 09/05/2024 10:27 AM EDT [facility] LAB NRBC 0.0 <1.0 % LAB HEMETOLOGY METHOD 09/05/2024 10:27 AM EDT [facility] LAB NRBC Absolute 0.00 <0.10 K/mcL LAB HEMETOLOGY METHOD 09/05/2024 10:27 AM EDT [facility] LAB Blood Venous blood specimen / Unknown Venipuncture / Unknown 09/05/2024 6:49 AM EDT 09/05/2024 9:23 AM EDT us Yaya Dobbins MD LAB BLOOD ORDERABLES Final Resu lt [facility] LAB [address] [place] [address], documented in this encounter Visit Diagnoses Diagnosis Hyperlipidemia, unspecified Hypothyroidism, unspecified documented in this encounter Care Teams Commercial Leasing Agent Relationship Specialty Start Date End Date Yaya Dobbins MD [address] [place] [address] PCP - General Internal Medicine 09/05/24 documented as of this encounter
[2024-12-29 19:54] LABS: Free T4 (Free Thyroxine) 0.93 ng/dL (0.71-1.85)
== END 2024-12-29 13:24 | disposition home or self-care (01) ==
LOC: HO.HMGCLDS 13:23
PROVIDERS: PCP Physician Assistant Medical; Visit Provider Physician Assistant Medical
DX: Z00.00 Encounter for general adult medical examination without abnormal findings (principal); Z13.29 Encounter for screening for other suspected endocrine disorder
CPT/HCPCS: 36415; 84439; 84443

== ENCOUNTER 2025-01-05 14:13 | Outpatient (AMB) | payer MEDICARE, SELFPAY ==
--- NOTE | 2025-01-05 14:14 | MHC.OFFVIS ---
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 Pt states she has had Left Total hip through [facility]. States she has not noticed improvment and also states she has swelling and discoloration. Pt states she is starting to get cramping in the left calf. Was wearing compresssion stockings but was causing a tourniquet effect and stopped wearing them 3 weeks ago. STates that swelling has not retirned but does still have discoloration and pain. Sleeps with LE elevated. 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: No Accompanied by: Friend Allergies oxycodone (OXYCODONE) Allergy (Severe, Verified 01/05/25 14:26) N/V aspirin (ASPIRIN) Allergy (Intermediate, Verified 01/05/25 14:26) GI UPSET/BLEEDING latex (LATEX) Allergy (Intermediate, Verified 01/05/25 14:26) RASH NSAIDS (Non-Steroidal Anti-Inflamma (NSAIDS (NON-STEROIDAL ANTI-INFLAMMA) Allergy (Intermediate, Verified 01/05/25 14:26) GI UPSET/BLEEDING naproxen (From Aleve) Allergy (Verified 01/05/25 14:26) Diarrhea HPI HPI TEACHER KINDERGARTEN/[facility] referral for edema: Details: The patient is a 79-year-old female presenting with lower extremity swelling. The swelling has decreased over time, and she has not used compression stockings for over two weeks. Discoloration on the top of the foot persists, with the skin being tight and dry. The patient has a 20-year history of Type 2 Diabetes Mellitus. She is currently in assisted living, using a walker and cane post-surgery four months ago to regain strength. She checks her legs at night to ensure they are cool, fearing complications. It has been affecting there daily activities including walking. It is noted more so in right leg. Patient denies any previous venous surgery or injections. Patient denies any history of DVT/ PE. Patient denies any history of phlebitis. Trial of compression includes - [id number] They now present for vascular evaluation regarding their varicose veins. [facility] Medical History Venous insufficiency Throat infection Type 2 diabetes mellitus with hemoglobin A1c goal of less than 7.0% Cellulitis of lower leg Preventative health care Kidney stone Hip pain Cellulitis of left foot Pedal edema Medication management Hypothyroidism Class 1 obesity with body mass index (BMI) of 32.0 to 32.9 in adult History of mammogram (~07/15/24) Cough Establishing care with new doctor, encounter for Anxiety GI bleed Surgical History S/P total left hip arthroplasty History of colonoscopy (~07/08/19) S/P tooth extraction Family History Father S/P CABG x 4 Stroke Heart attack Heart disease Mother Cancer Paternal Uncle Heart disease Diabetes Paternal Uncle Heart disease Daughter Multiple sclerosis Paternal Grandmother Diabetes Maternal Grandfather Stomach cancer Social History Housing: House Alcohol intake: current Alcohol intake frequency: does not drink Patient Tobacco Use Status: Former Tobacco user service: No Current occupational status: retired Cognitive needs: Yes (walker) Hearing needs: No Vision needs: Yes (uses glasses for reading, not prescribed) Review of Systems Const Reports as per HPI ENT Reports no additional complaints Card Denies chest pain, Denies chest pain at rest and Denies chest pain with activity Resp Denies chest congestion and Denies cough GI Reports no additional complaints Musc Details: pain over varicosities, aching of lower extremities, swelling, cramping, heaviness and tiredness, itching Denies abnormal gait Skin/Breast Reports pruritus and Denies wounds Neuro Reports no additional complaints and Denies abnormal gait Psych Denies no additional complaints Physical Exam Vital Signs: BMI result Body Mass Index 36.8 Const General: cooperative, healthy appearing and comfortable Orientation/consciousness: oriented to person, oriented to place and oriented to time Neck Carotids: no bruits Chest Chest palpation & inspection: normal inspection of the chest and normal palpation of entire chest wall Resp Effort & Inspection: normal respiratory effort and able to speak in complete sentences Cardio Rate: regular rate Heart sounds: S1 normal heart sound present and S2 normal heart sound present Peripheral pulses: Peripheral pulses 2+ throughout GI Inspection: Yes normal to inspection Skin Other: +2 edema, large rope-like varicosities greater than 4 mm CEAP Classification C4 - skin color changes Ep - Etiology Primary As - superficial veins P - reflux General skin exam: dry skin Neuro General: oriented to person, oriented to place and oriented to time Extrem Right lower extremity: full ROM, normal capillary refill and edema Left lower extremity: full ROM, normal capillary refill and edema Psych Mental Status: mental status grossly normal Assessment & Plan Assessment & Plan (1) Varicose veins of right lower extremity with inflammation: Code(s): I83.11 - Varicose veins of right lower extremity with inflammation Category: Medical Plan: In short, the patient has evidence of venous insufficiency. I have discussed the pathophysiology with the patient. In addition I have provided informational material regarding venous disease to the patient. We have discussed conservative measures including compression, elevation, and exercise. I have also provided a handout regarding appropriate use of compression stockings and where to purchase good compression stockings as well. I have taken the liberty of ordering venous insufficiency testing with the patient. They will follow up with me after testing. The patient had an opportunity to ask questions regarding the treatment plan. All questions were answered. Imaging studies, laboratory studies and physical exam results were discussed and reviewed in detail. No major barriers to understanding were identified. The patient expressed understanding and agreement with the above treatment plan. The patient is aware they should contact our office by phone for worsening of the current condition or the appearance of new symptoms. Thank you for allowing me to participate in the vascular care of this patient. If you have any questions or concerns regarding the treatment for the above condition please do not hesitate to contact me. The office telephone contact is [phone]. This note is constructed using voice recognition software. While every effort has been made to ensure accuracy, retail associate errors may have been included. Thank you for allowing me to participate in the care of your patient. Yours sincerely, Manuel Blanco MD, FACS, R.P.V.I. Orders: Orders US venous duplex LE BI Today I83.11 - Varicose veins of right lower extremity with inflammation Coding Level of Care Code New Pt Level 4 (59624) Diagnoses Varicose veins of right lower extremity with inflammation I83.11
[2025-01-05 14:19] VITALS: BMI 36.8
--- OUTSIDE RECORDS SUMMARY | 2025-01-05 17:14 | XMS_ITS | Encounter Summary ---
Author Organization [facility] Address [address] [place] [address] Care Team Providers Care Medical Interpreter Name Role Phone Yaya Dobbins MD Primary Care Provider [phone] Encounter Details Date Type Department Care Team (Late st Contact Info) Description 09/05/2024 Lab Requisition [facility] - Main Lab [address] [facility] [place] [address] Yaya Dobbins MD [address] [place] [address] Hyperlipidemia, unspecified; Hypothyroidism, unspecified Social [...] LAB CHEMISTRY METHOD 09/05/2024 10:48 AM EDT [facility] LAB Potassium 4.1 3.5 - 5.5 mmol/L LAB CHEMISTRY METHOD 09/05/2024 10:48 AM EDT [facility] LAB Chloride 109 96 - 110 mmol/L LAB CHEMISTRY METHOD 09/05/2024 10:48 AM [facility] LAB CO2 28 21 - 32 mmol/L LAB CHEMISTRY METHOD 09/05/2024 10:48 AM [facility] LAB Anion Gap 5 3 - 11 LAB CHEMISTRY METHOD 09/05/2024 10:48 AM [facility] LAB Glucose 85 70 - 100 mg/dL LAB CHEMISTRY METHOD 09/05/2024 10:48 AM [facility] LAB BUN 11 5 - 25 mg/dL LAB CHEMISTRY METHOD 09/05/2024 10:48 AM [facility] LAB Creatinine 0.60 0.50 - 1.10 mg/dL LAB CHEMISTRY METHOD 09/05/2024 10:48 AM [facility] LAB eGFR 92 >=60 mL/min/1. 73m2 LAB CHEMISTRY METHOD 09/05/2024 10:48 AM [facility] LAB Comment:Calculation based on the Chronic Kidney Disease Epidemiology Collaboration (CKD-EPI) equation refit without adjustment for race. BUN/Creatinine Ratio 18.3 LAB CHEMISTRY METHOD 09/05/2024 10:48 AM [facility] LAB Calcium 8.8 8.5 - 10.5 mg/dL LAB CHEMISTRY METHOD 09/05/2024 10:48 AM [facility] LAB AST (SGOT) 55(H) 10 - 42 unit/L LAB CHEMISTRY METHOD 09/05/2024 10:48 AM [facility] LAB ALT (SGPT) 30 10 - 60 unit/L LAB CHEMISTRY METHOD 09/05/2024 10:48 AM [facility] LAB Alkaline Phosphatase 84 42 - 121 unit/L LAB CHEMISTRY METHOD 09/05/2024 10:48 AM [facility] LAB Total Protein 5.3(L) 6.0 - 8.0 g/dL LAB CHEMISTRY METHOD 09/05/2024 10:48 AM [facility] LAB Albumin 2.8(L) 3.2 - 5.0 g/dL LAB CHEMISTRY METHOD 09/05/2024 10:48 AM EDT [facility] LAB Total Bilirubin 0.9 0.0 - 1.4 mg/dL LAB CHEMISTRY METHOD 09/05/2024 10:48 AM [facility] LAB Blood Venous blood specimen / Unknown Venipuncture / Unknown 09/05/2024 6:49 AM EDT 09/05/2024 9:23 AM EDT us Yaya Dobbins MD LAB BLOOD ORDERABLES Final Resu lt [facility] LAB [address] [place] [address], [place] [phone] * (ABNORMAL) Complete blood count (09/05/2024 6:49 AM EDT) WBC 8.4 4.8 - 10.8 K/mcL LAB HEMETOLOGY METHOD 09/05/2024 10:27 AM [facility] LAB RBC 3.10(L) 3.80 - 4.80 M/mcL LAB HEMETOLOGY METHOD 09/05/2024 10:27 AM [facility] LAB Hemoglobin 9.4(L) 11.5 - 16.0 g/dL LAB HEMETOLOGY METHOD 09/05/2024 10:27 AM [facility] LAB Hematocrit 28.8(L) 35.0 - 47.0 % LAB HEMETOLOGY METHOD 09/05/2024 10:27 AM [facility] LAB MCV 92.9 79.0 - 98.0 FL LAB HEMETOLOGY METHOD 09/05/2024 10:27 AM [facility] LAB MCH 30.3 27.0 - 32.0 pcg LAB HEMETOLOGY METHOD 09/05/2024 10:27 AM [facility] LAB MCHC 32.6 32.0 - 37.0 g/dL LAB HEMETOLOGY METHOD 09/05/2024 10:27 AM EDT [facility] LAB RDW 13.0 11.0 - 15.0 % LAB HEMETOLOGY METHOD 09/05/2024 10:27 AM EDT [facility] LAB Platelets 194 130 - 400 K/mcL LAB HEMETOLOGY METHOD 09/05/2024 10:27 AM EDT [facility] LAB MPV 11.2(H) 7.0 - 11.0 FL LAB HEMETOLOGY METHOD 09/05/2024 10:27 AM EDT [facility] LAB NRBC 0.0 <1.0 % LAB HEMETOLOGY METHOD 09/05/2024 10:27 AM EDT [facility] LAB NRBC Absolute 0.00 <0.10 K/mcL LAB HEMETOLOGY METHOD 09/05/2024 10:27 AM EDT [facility] LAB Blood Venous blood specimen / Unknown Venipuncture / Unknown 09/05/2024 6:49 AM EDT 09/05/2024 9:23 AM EDT us Yaya Dobbins MD LAB BLOOD ORDERABLES Final Resu lt [facility] LAB [address] [place] [address], documented in this encounter Visit Diagnoses Diagnosis Hyperlipidemia, unspecified Hypothyroidism, unspecified documented in this encounter Care Teams Medical Interpreter Relationship Specialty Start Date End Date Yaya Dobbins MD [address] [place] [address] PCP - General Internal Medicine 09/05/24 documented as of this encounter
--- OUTSIDE RECORDS SUMMARY | 2025-01-05 17:14 | XMS_ITS | Encounter Summary ---
Author Organization [facility] Address [address] [place] [address] Care Team Providers Care Messaging Architect Name Role Phone Yaya Dobbins MD Primary Care Provider [phone] Encounter Details Date Type Department Care Team (Late st Contact Info) Description 09/16/2024 Lab Requisition [facility] - Main Lab [address] [facility] [place] [address] Yaya Dobbins MD [address] [place] [address] Hyperlipidemia, unspecified Social History Tobacco [...] Resu lt [facility] LAB [address] [place] [address], * (ABNORMAL) Complete blood count (09/17/2024 4:51 AM EDT) WBC 5.9 4.8 - 10.8 K/[facility] LAB HEMETOLOGY METHOD 09/17/2024 8:39 AM [...] MD LAB BLOOD ORDERABLES Final Resu lt [facility] ([facility] LAB [address] [place] [address], documented in this encounter Visit Diagnoses Diagnosis Hyperlipidemia, unspecified documented in this encounter Care Teams Messaging Architect Relationship Specialty Start Date End Date Yaya Dobbins MD [address] [place] [address] PCP - General Internal Medicine 09/05/24 documented as of this encounter
--- OUTSIDE RECORDS SUMMARY | 2025-01-05 17:14 | XMS_ITS | Clinical Summary ---
Author Organization [facility] Address [address] [place], [place] [address] Phone Care Team Providers Care Sales Utility Representative Name Role Phone Rodolfo Stein MD Primary Care Provider [phone] Allergies Active Allergy Reactions Criticality Noted Date [...] Medical Devices Not on file Insurance [facility] [place] [address] [place] [address]O [facility] [address] [place] [place] [address] [place] [address]O [facility] H[facility] Care Teams Sales Utility Representative Relationship Specialty Start Date End Date Rodolfo Stein MD [address] [place] [id number] PCP - General Internal Medicine 01/22/14 Additional Source Comments The information contained in this document represents components of the legal health record. It is not the complete legal health record.[facility]
--- OUTSIDE RECORDS SUMMARY | 2025-01-05 17:14 | XMS_ITS | Encounter Summary ---
Author Organization [facility] Address [address] [place] [address] Care Team Providers Care Hot Roll Inspector Name Role Phone Yaya Dobbins MD Primary Care Provider [phone] Encounter Details Date Type Department Care Team (Late st Contact Info) Description 09/11/2024 Lab Requisition [facility] - Main Lab [address] [facility] [place] [employer] [address] Yaya Dobbins MD [address] [place] [address] Hyperlipidemia, unspecified Social History [...] LAB CHEMISTRY METHOD 09/14/2024 1:49 PM EDT [facility] Potassium 4.0 3.5 - 5.5 mmol/L LAB CHEMISTRY METHOD 09/14/2024 1:49 PM EDT [facility] Chloride 112(H) 96 - 110 mmol/L LAB CHEMISTRY METHOD 09/14/2024 1:49 PM [facility] CO2 26 21 - 32 mmol/L LAB CHEMISTRY METHOD 09/14/2024 1:49 PM [facility] Anion Gap 7 3 - 11 LAB CHEMISTRY METHOD 09/14/2024 1:49 PM [facility] Glucose 72 70 - 100 mg/dL LAB CHEMISTRY METHOD 09/14/2024 1:49 PM [facility] BUN 12 5 - 25 mg/dL LAB CHEMISTRY METHOD 09/14/2024 1:49 PM [facility] Creatinine 0.64 0.50 - 1.10 mg/dL LAB CHEMISTRY METHOD 09/14/2024 1:49 PM [facility] eGFR 91 >=60 mL/min/1. 73m2 LAB CHEMISTRY METHOD 09/14/2024 1:49 PM [facility] Comment:Calculation based on the Chronic Kidney Disease Epidemiology Collaboration (CKD-EPI) equation refit without adjustment for race. BUN/Creatinine Ratio 18.8 LAB CHEMISTRY METHOD 09/14/2024 1:49 PM [facility] Calcium 9.0 8.5 - 10.5 mg/dL LAB CHEMISTRY METHOD 09/14/2024 1:49 PM [facility] AST (SGOT) 43(H) 10 - 42 unit/L LAB CHEMISTRY METHOD 09/14/2024 1:49 PM [facility] ALT (SGPT) 31 10 - 60 unit/L LAB CHEMISTRY METHOD 09/14/2024 1:49 PM [facility] Alkaline Phosphatase 125(H) 42 - 121 unit/L LAB CHEMISTRY METHOD 09/14/2024 1:49 PM [facility] Total Protein 5.3(L) 6.0 - 8.0 g/dL LAB CHEMISTRY METHOD 09/14/2024 1:49 PM [facility] Albumin 2.9(L) 3.2 - 5.0 g/dL LAB CHEMISTRY METHOD 09/14/2024 1:49 PM EDT [facility] Total Bilirubin 0.5 0.0 - 1.4 mg/dL LAB CHEMISTRY METHOD 09/14/2024 1:49 PM [facility] Blood Venous blood specimen / Unknown Venipuncture / Unknown 09/14/2024 4:53 AM EDT 09/14/2024 10:55 AM EDT us Yaya Dobbins MD LAB BLOOD ORDERABLES Final Resu lt [facility] [address] [place] [address], * (ABNORMAL) Complete blood count (09/14/2024 4:53 AM EDT) WBC 7.1 4.8 - 10.8 K/mcL LAB HEMETOLOGY METHOD 09/14/2024 11:19 AM [facility] RBC 3.20(L) 3.80 - 4.80 M/mcL LAB HEMETOLOGY METHOD 09/14/2024 11:19 AM [facility] Hemoglobin 10.0(L) 11.5 - 16.0 g/dL LAB HEMETOLOGY METHOD 09/14/2024 11:19 AM [facility] Hematocrit 32.0(L) 35.0 - 47.0 % LAB HEMETOLOGY METHOD 09/14/2024 11:19 AM [facility] MCV 100.6(H) 79.0 - 98.0 FL LAB HEMETOLOGY METHOD 09/14/2024 11:19 AM [facility] MCH 31.4 27.0 - 32.0 pcg LAB HEMETOLOGY METHOD 09/14/2024 11:19 AM [facility] MCHC 31.3(L) 32.0 - 37.0 g/dL LAB HEMETOLOGY METHOD 09/14/2024 11:19 AM EDT [facility] RDW 14.9 11.0 - 15.0 % LAB HEMETOLOGY METHOD 09/14/2024 11:19 AM EDT [facility] Platelets 321 130 - 400 K/mcL LAB HEMETOLOGY METHOD 09/14/2024 11:19 AM EDT [facility] MPV 10.2 7.0 - 11.0 FL LAB HEMETOLOGY METHOD 09/14/2024 11:19 AM EDT [facility] NRBC 0.0 <1.0 % LAB HEMETOLOGY METHOD 09/14/2024 11:19 AM EDT [facility] NRBC Absolute 0.00 <0.10 K/mcL LAB HEMETOLOGY METHOD 09/14/2024 11:19 AM EDT [facility] Blood Venous blood specimen / Unknown Venipuncture / Unknown 09/14/2024 4:53 AM EDT 09/14/2024 10:54 AM EDT Yaya Dobbins MD LAB BLOOD ORDERABLES Final Resu lt [facility] [address] [place] [address], documented in this encounter Visit Diagnoses Diagnosis Hyperlipidemia, unspecified documented in this encounter Care Teams Hot Roll Inspector Relationship Specialty Start Date End Date Yaya Dobbins MD [address] [place] [address] PCP - General Internal Medicine 09/05/24 documented as of this encounter
--- OUTSIDE RECORDS SUMMARY | 2025-01-05 17:14 | XMS_ITS | Encounter Summary ---
Author Organization [facility] Address [address] [place] [address] Care Team Providers Care Residential Field Manager Name Role Phone Yaya Dobbins MD Primary Care Provider [phone] Encounter Details Date Type Department Care Team (Late st Contact Info) Description 09/19/2024 Lab Requisition [facility] - Main Lab [address] [facility] [place] [address] Yaya Dobbins MD [address] [place] [address] Hyperlipidemia, unspecified Social History [...] LAB CHEMISTRY METHOD 09/21/2024 11:20 AM T [facility] Potassium 4.0 3.5 - 5.5 mmol/L LAB CHEMISTRY METHOD 09/21/2024 11:20 AM EDT [facility] Chloride 114(H) 96 - 110 mmol/L LAB CHEMISTRY METHOD 09/21/2024 11:20 AM [facility] CO2 22 21 - 32 mmol/L LAB CHEMISTRY METHOD 09/21/2024 11:20 AM [facility] Anion Gap 8 3 - 11 LAB CHEMISTRY METHOD 09/21/2024 11:20 AM [facility] Glucose 82 70 - 100 mg/dL LAB CHEMISTRY METHOD 09/21/2024 11:20 AM [facility] BUN 13 5 - 25 mg/dL LAB CHEMISTRY METHOD 09/21/2024 11:20 AM [facility] Creatinine 0.61 0.50 - 1.10 mg/dL LAB CHEMISTRY METHOD 09/21/2024 11:20 AM [facility] eGFR 92 >=60 mL/min/1. 73m2 LAB CHEMISTRY METHOD 09/21/2024 11:20 AM [facility] Comment:Calculation based on the Chronic Kidney Disease Epidemiology Collaboration (CKD-EPI) equation refit without adjustment for race. BUN/Creatinine Ratio 21.3 LAB CHEMISTRY METHOD 09/21/2024 11:20 AM [facility] Calcium 9.0 8.5 - 10.5 mg/dL LAB CHEMISTRY METHOD 09/21/2024 11:20 AM [facility] AST (SGOT) 40 10 - 42 unit/L LAB CHEMISTRY METHOD 09/21/2024 11:20 AM [facility] ALT (SGPT) 31 10 - 60 unit/L LAB CHEMISTRY METHOD 09/21/2024 11:20 AM [facility] Alkaline Phosphatase 140(H) 42 - 121 unit/L LAB CHEMISTRY METHOD 09/21/2024 11:20 AM [facility] Total Protein 5.3(L) 6.0 - 8.0 g/dL LAB CHEMISTRY METHOD 09/21/2024 11:20 AM [facility] Albumin 3.1(L) 3.2 - 5.0 g/dL LAB CHEMISTRY METHOD 09/21/2024 11:20 AM [facility] Total Bilirubin 0.5 0.0 - 1.4 mg/dL LAB CHEMISTRY METHOD 09/21/2024 11:20 AM [facility] Blood Venous blood specimen / Unknown Venipuncture / Unknown 09/21/2024 4:46 AM EDT 09/21/2024 11:05 AM EDT us Yaya Dobbins MD LAB BLOOD ORDERABLES Final Resu lt [facility] [address] [place] [address], * (ABNORMAL) Complete blood count (09/21/2024 4:46 AM EDT) WBC 5.6 4.8 - 10.8 K/mcL LAB HEMETOLOGY METHOD 09/21/2024 10:22 AM [facility] RBC 3.10(L) 3.80 - 4.80 M/mcL LAB HEMETOLOGY METHOD 09/21/2024 10:22 AM [facility] Hemoglobin 9.8(L) 11.5 - 16.0 g/dL LAB HEMETOLOGY METHOD 09/21/2024 10:22 AM [facility] Hematocrit 31.4(L) 35.0 - 47.0 % LAB HEMETOLOGY METHOD 09/21/2024 10:22 AM [facility] MCV 101.0(H) 79.0 - 98.0 FL LAB HEMETOLOGY METHOD 09/21/2024 10:22 AM [facility] MCH 31.5 27.0 - 32.0 pcg LAB HEMETOLOGY METHOD 09/21/2024 10:22 AM [facility] MCHC 31.2(L) 32.0 - 37.0 g/dL LAB HEMETOLOGY METHOD 09/21/2024 10:22 AM EDT [facility] RDW 15.7(H) 11.0 - 15.0 % LAB HEMETOLOGY METHOD 09/21/2024 10:22 AM EDT [facility] Platelets 273 130 - 400 K/mcL LAB HEMETOLOGY METHOD 09/21/2024 10:22 AM EDT [facility] MPV 10.6 7.0 - 11.0 FL LAB HEMETOLOGY METHOD 09/21/2024 10:22 AM EDT [facility] NRBC 0.0 <1.0 % LAB HEMETOLOGY METHOD 09/21/2024 10:22 AM EDT [facility] NRBC Absolute 0.00 <0.10 K/mcL LAB HEMETOLOGY METHOD 09/21/2024 10:22 AM EDT [facility] Blood Venous blood specimen / Unknown Venipuncture / Unknown 09/21/2024 4:46 AM EDT 09/21/2024 10:02 AM EDT Yaya Dobbins MD LAB BLOOD ORDERABLES Final Resu lt [facility] [address] [place] [address], documented in this encounter Visit Diagnoses Diagnosis Hyperlipidemia, unspecified documented in this encounter Care Teams Residential Field Manager Relationship Specialty Start Date End Date Yaya Dobbins MD [address] [place] [address] PCP - General Internal Medicine 09/05/24 documented as of this encounter
--- OUTSIDE RECORDS SUMMARY | 2025-01-05 17:14 | XMS_ITS | Clinical Summary ---
Author Organization [address] Address [address] [place] [address] Phone Care Team Providers Care Tow Truck Driver Name Role Phone Yaya Dobbins MD Primary Care Provider [phone] Social History Tobacco Use Types Packs/Day Years [...] LAB BLOOD ORDERABLES Final Resu lt [facility] [address] [place] [address], from Last 3 Months or Most Recently Relevant to Health Maintenance Insurance [facility] Care Teams Tow Truck Driver Relationship Specialty Start Date End Date Yaya Dobbins MD [address] [place] [address] PCP - General Internal Medicine 09/05/24
--- OUTSIDE RECORDS SUMMARY | 2025-01-05 17:14 | XMS_ITS | Encounter Summary ---
Author Organization [facility] Address [address] [place] [address] Care Team Providers Care Automotive Service Porter Name Role Phone Yaya Dobbins MD Primary Care Provider Encounter Details Date Type Department Care Team (Late st Contact Info) Description 09/07/2024 Lab Requisition [facility] - Main Lab [address] [facility] [place] [address] Yaya Dobbins MD [address] [place] [address] Hypothyroidism, unspecified; Hyperlipidemia, unspecified Social [...] mmol/L LAB CHEMISTRY METHOD 09/07/2024 12:51 PM [facility] CO2 26 21 - 32 mmol/L LAB CHEMISTRY METHOD 09/07/2024 12:51 PM [facility] Anion Gap 7 3 - 11 LAB CHEMISTRY METHOD 09/07/2024 12:51 PM [facility] Glucose 80 70 - 100 mg/dL LAB CHEMISTRY METHOD 09/07/2024 12:51 PM [facility] BUN 10 5 - 25 mg/dL LAB CHEMISTRY METHOD 09/07/2024 12:51 PM [facility] Creatinine 0.60 0.50 - 1.10 mg/dL LAB CHEMISTRY METHOD 09/07/2024 12:51 PM [facility] eGFR 92 >=60 mL/min/1. 73m2 LAB CHEMISTRY METHOD 09/07/2024 12:51 PM [facility] Comment:Calculation based on the Chronic Kidney Disease Epidemiology Collaboration (CKD-EPI) equation refit without adjustment for race. BUN/Creatinine Ratio 16.7 LAB CHEMISTRY METHOD 09/07/2024 12:51 PM [facility] Calcium 8.6 8.5 - 10.5 mg/dL LAB CHEMISTRY METHOD 09/07/2024 12:51 PM [facility] AST (SGOT) 48(H) 10 - 42 unit/L LAB CHEMISTRY METHOD 09/07/2024 12:51 PM [facility] ALT (SGPT) 32 10 - 60 unit/L LAB CHEMISTRY METHOD 09/07/2024 12:51 PM [facility] Alkaline Phosphatase 106 42 - 121 unit/L LAB CHEMISTRY METHOD 09/07/2024 12:51 PM [facility] Total Protein 5.4(L) 6.0 - 8.0 g/dL LAB CHEMISTRY METHOD 09/07/2024 12:51 PM [facility] Albumin 2.9(L) 3.2 - 5.0 [...] Resu lt [facility] [address] [place] [address], [place] [phone] * (ABNORMAL) Complete blood count (09/07/2024 5:09 AM EDT) WBC 8.2 4.8 - 10.8 K/mcL LAB HEMETOLOGY METHOD 09/07/2024 1:09 PM EDT [facility] RBC 3.10(L) 3.80 - 4.80 M/mcL LAB [facility]EMETOLOGY METHOD [facility] Hemoglobin 9.3(L) 11.5 - 16.0 g/dL LAB HEMETOLOGY METHOD 09/07/2024 1:09 PM EDT [facility] Hematocrit 29.6(L) 35.0 - 47.0 % LAB HEMETOLOGY METHOD 09/07/2024 1:09 PM EDT [facility] MCV 97.0 79.0 - 98.0 FL LAB HEMETOLOGY METHOD 09/07/2024 1[facility] MCH 30.5 27.0 - 32.0 [...] Resu lt [facility] [address] [place] [address], [place] [phone] documented in this encounter Visit Diagnoses Diagnosis Hypothyroidism, unspecified Hyperlipidemia, unspecified documented in this encounter Care Teams Automotive Service Porter Relationship Specialty Start Date End Date Yaya Dobbins MD [address] [place] [address] PCP - General Internal Medicine 09/05/24 documented as of this encounter
--- OUTSIDE RECORDS SUMMARY | 2025-01-05 17:14 | XMS_ITS | Encounter Summary ---
Author Organization [facility] Address [address] [place] [address] Care Team Providers Care Pain Management Nurse Name Role Phone Yaya Dobbins MD Primary Care Provider Encounter Details Date Type Department Care Team (Late st Contact Info) Description 09/09/2024 Lab Requisition [facility] - Main Lab [address] [facility] [place] [address] Yaya Dobbins MD [address] [place] [address] Hyperlipidemia, unspecified Social History Tobacco [...] LAB CHEMISTRY METHOD 09/10/2024 9:35 AM EDT [facility] Potassium 4.2 3.5 - 5.5 mmol/L LAB CHEMISTRY METHOD 09/10/2024 9:35 AM EDT [facility] Chloride 113(H) 96 - 110 [...] Resu lt [facility] [address] [place] [address], * (ABNORMAL) Complete blood count (09/10/2024 4:58 AM EDT) WBC 7.7 4.8 - 10.8 K/[facility] LAB HEMETOLOGY METHOD 09/10/2024 9:07 AM [place] [...] LAB BLOOD ORDERABLES Final Resu lt [facility] [address] [place] [address], documented in this encounter Visit Diagnoses Diagnosis Hyperlipidemia, unspecified documented in this encounter Care Teams Pain Management Nurse Relationship Specialty Start Date End Date Yaya Dobbins MD [address] [place] [address] PCP - General Internal Medicine 09/05/24 documented as of this encounter
== END 2025-01-05 14:50 | disposition home or self-care (01) ==
LOC: HO.HVS 14:13
PROVIDERS: PCP Physician Assistant Medical; Visit Provider Surgery Vascular Surgery
DX: I83.11 Varicose veins of right lower extremity with inflammation (principal)
CPT/HCPCS: 99204

== ENCOUNTER → 2025-01-05 14:13 | Outpatient (BNVA) | payer MEDICARE, SELFPAY | PROVIDERS: PCP Physician Assistant Medical; Visit Provider Surgery Vascular Surgery | DX: I83.11 Varicose veins of right lower extremity with inflammation (principal) | CPT/HCPCS: 99202 ==

== ENCOUNTER 2025-02-08 13:54 | Outpatient (AMB) | payer MEDICARE, SELFPAY ==
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
[2025-02-08 13:52] VITALS: BP 186/75; PULSE 80; RESP 16; TEMP 36.2; O2SAT 98; BMI 37.7
[2025-02-08 14:47] VITALS: BP 177/75; PULSE 71
--- OUTSIDE RECORDS SUMMARY | 2025-02-08 22:40 | XMS_ITS | Encounter Summary ---
Author Organization [facility] Address [address] [place] [address] Care Team Providers Care Navigation Officer Name Role Phone Yaya Dobbins MD Primary Care Provider [phone] Encounter Details Date Type Department Care Team (Late st Contact Info) Description 09/11/2024 Lab Requisition [facility] - Main Lab [address] [facility] [place] [address] Yaya Dobbins MD [address] [place] [address] Hyperlipidemia, unspecified Social History [...] LAB CHEMISTRY METHOD 09/14/2024 1:49 PM EDT [facility] Potassium 4.0 3.5 - 5.5 mmol/L LAB CHEMISTRY METHOD 09/14/2024 1:49 PM EDT [facility] Chloride 112(H) 96 - 110 mmol/L LAB CHEMISTRY METHOD 09/14/2024 1:49 PM [facility] CO2 26 21 - 32 mmol/L LAB CHEMISTRY METHOD 09/14/2024 1:49 PM [facility] Anion Gap 7 3 - 11 LAB CHEMISTRY METHOD 09/14/2024 1:49 PM [facility] Glucose 72 70 - 100 mg/dL LAB CHEMISTRY METHOD 09/14/2024 1:49 PM [facility] BUN 12 5 - 25 mg/dL LAB CHEMISTRY METHOD 09/14/2024 1:49 PM [facility] Creatinine 0.64 0.50 - 1.10 mg/dL LAB CHEMISTRY METHOD 09/14/2024 1:49 PM [facility] eGFR 91 >=60 mL/min/1. 73m2 LAB CHEMISTRY METHOD 09/14/2024 1:49 PM [facility] Comment:Calculation based on the Chronic Kidney Disease Epidemiology Collaboration (CKD-EPI) equation refit without adjustment for race. BUN/Creatinine Ratio 18.8 LAB CHEMISTRY METHOD 09/14/2024 1:49 PM [facility] Calcium 9.0 8.5 - 10.5 mg/dL LAB CHEMISTRY METHOD 09/14/2024 1:49 PM [facility] AST (SGOT) 43(H) 10 - 42 unit/L LAB CHEMISTRY METHOD 09/14/2024 1:49 PM [facility] ALT (SGPT) 31 10 - 60 unit/L LAB CHEMISTRY METHOD 09/14/2024 1:49 PM [facility] Alkaline Phosphatase 125(H) 42 - 121 unit/L LAB CHEMISTRY METHOD 09/14/2024 1:49 PM [facility] Total Protein 5.3(L) 6.0 - 8.0 g/dL LAB CHEMISTRY METHOD 09/14/2024 1:49 PM [facility] Albumin 2.9(L) 3.2 - 5.0 g/dL LAB CHEMISTRY METHOD 09/14/2024 1:49 PM EDT [facility] Total Bilirubin 0.5 0.0 - 1.4 mg/dL LAB CHEMISTRY METHOD 09/14/2024 1:49 PM [facility] Blood Venous blood specimen / Unknown Venipuncture / Unknown 09/14/2024 4:53 AM EDT 09/14/2024 10:55 AM EDT us Yaya Dobbins MD LAB BLOOD ORDERABLES Final Resu lt [facility] [address] [place] [address], * (ABNORMAL) Complete blood count (09/14/2024 4:53 AM EDT) WBC 7.1 4.8 - 10.8 K/mcL LAB HEMETOLOGY METHOD 09/14/2024 11:19 AM [facility] RBC 3.20(L) 3.80 - 4.80 M/mcL LAB HEMETOLOGY METHOD 09/14/2024 11:19 AM [facility] Hemoglobin 10.0(L) 11.5 - 16.0 g/dL LAB HEMETOLOGY METHOD 09/14/2024 11:19 AM [facility] Hematocrit 32.0(L) 35.0 - 47.0 % LAB HEMETOLOGY METHOD 09/14/2024 11:19 AM [facility] MCV 100.6(H) 79.0 - 98.0 FL LAB HEMETOLOGY METHOD 09/14/2024 11:19 AM [facility] MCH 31.4 27.0 - 32.0 pcg LAB HEMETOLOGY METHOD 09/14/2024 11:19 AM [facility] MCHC 31.3(L) 32.0 - 37.0 g/dL LAB HEMETOLOGY METHOD 09/14/2024 11:19 AM EDT [facility] RDW 14.9 11.0 - 15.0 % LAB HEMETOLOGY METHOD 09/14/2024 11:19 AM EDT [facility] Platelets 321 130 - 400 K/mcL LAB HEMETOLOGY METHOD 09/14/2024 11:19 AM EDT [facility] MPV 10.2 7.0 - 11.0 FL LAB HEMETOLOGY METHOD 09/14/2024 11:19 AM EDT [facility] NRBC 0.0 <1.0 % LAB HEMETOLOGY METHOD 09/14/2024 11:19 AM EDT [facility] NRBC Absolute 0.00 <0.10 K/mcL LAB HEMETOLOGY METHOD 09/14/2024 11:19 AM EDT [facility] Blood Venous blood specimen / Unknown Venipuncture / Unknown 09/14/2024 4:53 AM EDT 09/14/2024 10:54 AM EDT Yaya Dobbins MD LAB BLOOD ORDERABLES Final Resu lt [facility] [address] [place] [address], documented in this encounter Visit Diagnoses Diagnosis Hyperlipidemia, unspecified documented in this encounter Care Teams Navigation Officer Relationship Specialty Start Date End Date Yaya Dobbins MD [address] [place] [address] PCP - General Internal Medicine 09/05/24 documented as of this encounter
--- OUTSIDE RECORDS SUMMARY | 2025-02-08 22:40 | XMS_ITS | Clinical Summary ---
Author Organization [facility] Address [address] [place], [place] [id number] Phone Care Team Providers Care Veterinary Parasitologist Name Role Phone Rodolfo Stein MD Primary Care Provider [phone] Allergies Active Allergy Reactions Criticality Noted Date [...] topic Medical Devices Not on file Insurance [facility] [place] [address] [place], [place] [id number] [facility] [address] [place] [place] [address] [place] [id number] [facility] Care Teams Veterinary Parasitologist Relationship Specialty Start Date End Date Rodolfo Stein MD [address] [place] [id number] PCP - General Internal Medicine 01/22/14 Additional Source Comments The information contained in this document represents components of the legal health record. It is not the complete legal health record.[facility]
--- OUTSIDE RECORDS SUMMARY | 2025-02-08 22:40 | XMS_ITS | Encounter Summary ---
Author Organization [facility] Address [address] [place] [address] Care Team Providers Care Wood Crafter Name Role Phone Yaya Dobbins MD Primary Care Provider [phone] Encounter Details Date Type Department Care Team (Late st Contact Info) Description 09/16/2024 Lab Requisition [facility] - Main Lab [address] [facility] [place] [address] Yaya Dobbins MD [address] [place] [address] Hyperlipidemia, unspecified Social History Tobacco [...] LAB CHEMISTRY METHOD 09/17/2024 9:16 AM EDT [facility] Potassium 4.1 3.5 - 5.5 mmol/L LAB CHEMISTRY METHOD 09/17/2024 9:16 AM EDT [facility] Chloride 114(H) 96 - 110 mmol/L LAB CHEMISTRY METHOD 09/17/2024 9:16 AM [facility] CO2 26 21 - 32 mmol/L LAB CHEMISTRY METHOD 09/17/2024 9:16 AM [facility] Anion Gap 5 3 - 11 LAB CHEMISTRY METHOD 09/17/2024 9:16 AM [facility] Glucose 77 70 - 100 mg/dL LAB CHEMISTRY METHOD 09/17/2024 9:16 AM [facility] BUN 11 5 - 25 mg/dL LAB CHEMISTRY METHOD 09/17/2024 9:16 AM [facility] Creatinine 0.65 0.50 - 1.10 mg/dL LAB CHEMISTRY METHOD 09/17/2024 9:16 AM [facility] eGFR 90 >=60 mL/min/1. 73m2 LAB CHEMISTRY METHOD 09/17/2024 9:16 AM [facility] Comment:Calculation based on the Chronic Kidney Disease Epidemiology Collaboration (CKD-EPI) equation refit without adjustment for race. BUN/Creatinine Ratio 16.9 LAB CHEMISTRY METHOD 09/17/2024 9:16 AM [facility] Calcium 9.2 8.5 - 10.5 mg/dL LAB CHEMISTRY METHOD 09/17/2024 9:16 AM [facility] Blood Venous blood specimen / Unknown Venipuncture / Unknown 09/17/2024 4:51 AM EDT 09/17/2024 7:42 AM EDT us Yaya Dobbins MD LAB BLOOD ORDERABLES Final Resu lt [facility] [address] [place] [address], * (ABNORMAL) Complete blood count (09/17/2024 4:51 AM EDT) WBC 5.9 4.8 - 10.8 K/[facility] LAB HEMETOLOGY METHOD 09/17/2024 8:39 AM [facility] RBC 3.30(L) 3.80 - 4.80 M/mcL LAB HEMETOLOGY METHOD 09/17/2024 8:39 AM [facility] Hemoglobin 10.1(L) 11.5 - 16.0 g/dL LAB HEMETOLOGY METHOD 09/17/2024 8:39 AM [facility] Hematocrit 32.4(L) 35.0 - 47.0 % LAB HEMETOLOGY METHOD 09/17/2024 8:39 AM [facility] MCV 99.7(H) 79.0 - 98.0 FL LAB HEMETOLOGY METHOD 09/17/2024 8:39 AM [facility] MCH 31.1 27.0 - 32.0 pcg LAB HEMETOLOGY METHOD 09/17/2024 8:39 AM [facility] MCHC 31.2(L) 32.0 - 37.0 g/dL LAB HEMETOLOGY METHOD 09/17/2024 8:39 AM [facility] RDW 15.2(H) 11.0 - 15.0 % LAB HEMETOLOGY METHOD 09/17/2024 8:39 AM [facility] Platelets 324 130 - 400 K/mcL LAB HEMETOLOGY METHOD 09/17/2024 8:39 AM [facility] MPV 10.1 7.0 - 11.0 FL LAB HEMETOLOGY METHOD 09/17/2024 8:39 AM [facility] NRBC 0.0 <1.0 % LAB HEMETOLOGY METHOD 09/17/2024 8:39 AM [facility] NRBC Absolute 0.00 <0.10 K/mcL LAB HEMETOLOGY METHOD 09/17/2024 8:39 AM [facility] Blood Venous blood specimen / Unknown Venipuncture / Unknown 09/17/2024 4:51 AM EDT 09/17/2024 7:42 AM EDT Yaya Dobbins MD LAB BLOOD ORDERABLES Final Resu lt [facility] [address] [place] [address], documented in this encounter Visit Diagnoses Diagnosis Hyperlipidemia, unspecified documented in this encounter Care Teams Wood Crafter Relationship Specialty Start Date End Date Yaya Dobbins MD [address] [place] [address] PCP - General Internal Medicine 09/05/24 documented as of this encounter
--- OUTSIDE RECORDS SUMMARY | 2025-02-08 22:40 | XMS_ITS | Encounter Summary ---
Author Organization [facility] Address [address] [place] [address] Care Team Providers Care Media Intern Name Role Phone Yaya Dobbins MD Primary Care Provider [phone] Encounter Details Date Type Department Care Team (Late st Contact Info) Description 09/09/2024 Lab Requisition [facility] - Main Lab [address] [facility] [place] [address] Yaya Dobbins MD [address] [place] [address] Hyperlipidemia, unspecified Social History Tobacco [...] LAB CHEMISTRY METHOD 09/10/2024 9:35 AM EDT [facility] Potassium 4.2 3.5 - 5.5 mmol/L LAB CHEMISTRY METHOD 09/10/2024 9:35 AM EDT [facility] Chloride 113(H) 96 - 110 mmol/L LAB CHEMISTRY METHOD 09/10/2024 9:35 AM [facility] CO2 26 21 - 32 mmol/L LAB CHEMISTRY METHOD 09/10/2024 9:35 AM [facility] Anion Gap 5 3 - 11 LAB CHEMISTRY METHOD 09/10/2024 9:35 AM [facility] Glucose 86 70 - 100 mg/dL LAB CHEMISTRY METHOD 09/10/2024 9:35 AM [facility] BUN 10 5 - 25 mg/dL LAB CHEMISTRY METHOD 09/10/2024 9:35 AM [facility] Creatinine 0.51 0.50 - 1.10 mg/dL LAB CHEMISTRY METHOD 09/10/2024 9:35 AM [facility] eGFR 96 >=60 mL/min/1. 73m2 LAB CHEMISTRY METHOD 09/10/2024 9:35 AM [facility] Comment:Calculation based on the Chronic Kidney Disease Epidemiology Collaboration (CKD-EPI) equation refit without adjustment for race. BUN/Creatinine Ratio 19.6 LAB CHEMISTRY METHOD 09/10/2024 9:35 AM [facility] Calcium 9.1 8.5 - 10.5 mg/dL LAB CHEMISTRY METHOD 09/10/2024 9:35 AM [facility] Blood Venous blood specimen / Unknown Venipuncture / Unknown 09/10/2024 4:58 AM EDT 09/10/2024 8:42 AM EDT us Yaya Dobbins MD LAB BLOOD ORDERABLES Final Resu lt [facility] [address] [place] [address], * (ABNORMAL) Complete blood count (09/10/2024 4:58 AM EDT) WBC 7.7 4.8 - 10.8 K/[facility] LAB HEMETOLOGY METHOD 09/10/2024 9:07 AM [facility] RBC 3.00(L) 3.80 - 4.80 M/mcL LAB HEMETOLOGY METHOD 09/10/2024 9:07 AM [facility] Hemoglobin 9.5(L) 11.5 - 16.0 g/dL LAB HEMETOLOGY METHOD 09/10/2024 9:07 AM [facility] Hematocrit 29.7(L) 35.0 - 47.0 % LAB HEMETOLOGY METHOD 09/10/2024 9:07 AM [facility] MCV 98.3(H) 79.0 - 98.0 FL LAB HEMETOLOGY METHOD 09/10/2024 9:07 AM [facility] MCH 31.5 27.0 - 32.0 pcg LAB HEMETOLOGY METHOD 09/10/2024 9:07 AM [facility] MCHC 32.0 32.0 - 37.0 g/dL LAB HEMETOLOGY METHOD 09/10/2024 9:07 AM [facility] RDW 14.1 11.0 - 15.0 % LAB HEMETOLOGY METHOD 09/10/2024 9:07 AM [facility] Platelets 304 130 - 400 K/mcL LAB HEMETOLOGY METHOD 09/10/2024 9:07 AM [facility] MPV 10.5 7.0 - 11.0 FL LAB HEMETOLOGY METHOD 09/10/2024 9:07 AM [facility] NRBC 0.0 <1.0 % LAB HEMETOLOGY METHOD 09/10/2024 9:07 AM [facility] NRBC Absolute 0.00 <0.10 K/mcL LAB HEMETOLOGY METHOD 09/10/2024 9:07 AM [facility] Blood Venous blood specimen / Unknown Venipuncture / Unknown 09/10/2024 4:58 AM EDT 09/10/2024 8:45 AM EDT Yaya Dobbins MD LAB BLOOD ORDERABLES Final Resu lt [facility] [address] [place] [address], documented in this encounter Visit Diagnoses Diagnosis Hyperlipidemia, unspecified documented in this encounter Care Teams Media Intern Relationship Specialty Start Date End Date Yaya Dobbins MD [address] [place] [address] PCP - General Internal Medicine 09/05/24 documented as of this encounter
--- OUTSIDE RECORDS SUMMARY | 2025-02-08 22:40 | XMS_ITS | Encounter Summary ---
Author Organization [facility] Address [address] [place] [address] Care Team Providers Care Charge Rn Name Role Phone Yaya Dobbins MD Primary Care Provider [phone] Encounter Details Date Type Department Care Team (Late st Contact Info) Description 09/19/2024 Lab Requisition [facility] - Main Lab [address] [facility] [place] [address] Yaya Dobbins MD [address] [place] [address] Hyperlipidemia, unspecified Social History Tobacco [...] [facility] [address] [place] [address], * (ABNORMAL) Complete blood count (09/21/2024 4:46 [...] [facility] [address] [place] [address], documented in this encounter Visit Diagnoses Diagnosis Hyperlipidemia, unspecified documented in this encounter Care Teams Charge Rn Relationship Specialty Start Date End Date Yaya Dobbins MD [address] [place] [address] PCP - General Internal Medicine 09/05/24 documented as of this encounter
--- OUTSIDE RECORDS SUMMARY | 2025-02-08 22:40 | XMS_ITS | Encounter Summary ---
Author Organization [facility] Address [address] [place] [address] Care Team Providers Care Merchandise Supervisor Name Role Phone Yaya Dobbins MD Primary Care Provider [phone] Encounter Details Date Type Department Care Team (Late st Contact Info) Description 09/05/2024 Lab Requisition [facility] - Main Lab [address] [facility] [place] [address] Yaya Dobbins MD [address] [place] [address] Hyperlipidemia, unspecified; Hypothyroidism, unspecified Social [...] LAB CHEMISTRY METHOD 09/05/2024 10:48 AM EDT [facility] Potassium 4.1 3.5 - 5.5 mmol/L LAB CHEMISTRY METHOD 09/05/2024 10:48 AM EDT [facility] Chloride 109 96 - 110 mmol/L LAB CHEMISTRY METHOD 09/05/2024 10:48 AM [facility] CO2 28 21 - 32 mmol/L LAB CHEMISTRY METHOD 09/05/2024 10:48 AM [facility] Anion Gap 5 3 - 11 LAB CHEMISTRY METHOD 09/05/2024 10:48 AM [facility] Glucose 85 70 - 100 mg/dL LAB CHEMISTRY METHOD 09/05/2024 10:48 AM [facility] BUN 11 5 - 25 mg/dL LAB CHEMISTRY METHOD 09/05/2024 10:48 AM [facility] Creatinine 0.60 0.50 - 1.10 mg/dL LAB CHEMISTRY METHOD 09/05/2024 10:48 AM [facility] eGFR 92 >=60 mL/min/1. 73m2 LAB CHEMISTRY METHOD 09/05/2024 10:48 AM [facility] Comment:Calculation based on the Chronic Kidney Disease Epidemiology Collaboration (CKD-EPI) equation refit without adjustment for race. BUN/Creatinine Ratio 18.3 LAB CHEMISTRY METHOD 09/05/2024 10:48 AM [facility] Calcium 8.8 8.5 - 10.5 mg/dL LAB CHEMISTRY METHOD 09/05/2024 10:48 AM [facility] AST (SGOT) 55(H) 10 - 42 unit/L LAB CHEMISTRY METHOD 09/05/2024 10:48 AM [facility] ALT (SGPT) 30 10 - 60 unit/L LAB CHEMISTRY METHOD 09/05/2024 10:48 AM [facility] Alkaline Phosphatase 84 42 - 121 unit/L LAB CHEMISTRY METHOD 09/05/2024 10:48 AM [facility] Total Protein 5.3(L) 6.0 - 8.0 g/dL LAB CHEMISTRY METHOD 09/05/2024 10:48 AM [facility] Albumin 2.8(L) 3.2 - 5.0 g/dL LAB CHEMISTRY METHOD 09/05/2024 10:48 AM EDT [facility] Total Bilirubin 0.9 0.0 - 1.4 mg/dL LAB CHEMISTRY METHOD 09/05/2024 10:48 AM [facility] Blood Venous blood specimen / Unknown Venipuncture / Unknown 09/05/2024 6:49 AM EDT 09/05/2024 9:23 AM EDT us Yaya Dobbins MD LAB BLOOD ORDERABLES Final Resu lt [facility] [address] [place] [address], [place] [phone] * (ABNORMAL) Complete blood count (09/05/2024 6:49 AM EDT) WBC 8.4 4.8 - 10.8 K/mcL LAB HEMETOLOGY METHOD 09/05/2024 10:27 AM [facility] RBC 3.10(L) 3.80 - 4.80 M/mcL LAB HEMETOLOGY METHOD 09/05/2024 10:27 AM [facility] Hemoglobin 9.4(L) 11.5 - 16.0 g/dL LAB HEMETOLOGY METHOD 09/05/2024 10:27 AM [facility] Hematocrit 28.8(L) 35.0 - 47.0 % LAB HEMETOLOGY METHOD 09/05/2024 10:27 AM [facility] MCV 92.9 79.0 - 98.0 FL LAB HEMETOLOGY METHOD 09/05/2024 10:27 AM [facility] MCH 30.3 27.0 - 32.0 pcg LAB HEMETOLOGY METHOD 09/05/2024 10:27 AM [facility] MCHC 32.6 32.0 - 37.0 g/dL LAB HEMETOLOGY METHOD 09/05/2024 10:27 AM EDT [facility] RDW 13.0 11.0 - 15.0 % LAB HEMETOLOGY METHOD 09/05/2024 10:27 AM EDT [facility] Platelets 194 130 - 400 K/mcL LAB HEMETOLOGY METHOD 09/05/2024 10:27 AM EDT [facility] MPV 11.2(H) 7.0 - 11.0 FL LAB HEMETOLOGY METHOD 09/05/2024 10:27 AM EDT [facility] NRBC 0.0 <1.0 % LAB HEMETOLOGY METHOD 09/05/2024 10:27 AM EDT [facility] NRBC Absolute 0.00 <0.10 K/mcL LAB HEMETOLOGY METHOD 09/05/2024 10:27 AM EDT [facility] Blood Venous blood specimen / Unknown Venipuncture / Unknown 09/05/2024 6:49 AM EDT 09/05/2024 9:23 AM EDT us Yaya Dobbins MD LAB BLOOD ORDERABLES Final Resu lt [facility] [address] [place] [address], documented in this encounter Visit Diagnoses Diagnosis Hyperlipidemia, unspecified Hypothyroidism, unspecified documented in this encounter Care Teams Merchandise Supervisor Relationship Specialty Start Date End Date Yaya Dobbins MD [address] [place] [address] PCP - General Internal Medicine 09/05/24 documented as of this encounter
--- OUTSIDE RECORDS SUMMARY | 2025-02-08 22:40 | XMS_ITS | Encounter Summary ---
Author Organization [facility] Address [address] [place] [address] Care Team Providers Care Bolt Cutter Name Role Phone Yaya Dobbins MD Primary Care Provider [phone] Encounter Details Date Type Department Care Team (Late st Contact Info) Description 09/07/2024 Lab Requisition [facility] - Main Lab [address] [facility] [place] [address] Yaya Dobbins MD [address] [place] [address] Hypothyroidism, unspecified; Hyperlipidemia, unspecified Social [...] LAB CHEMISTRY METHOD 09/07/2024 12:51 PM EDT [facility] Potassium 4.0 3.5 - 5.5 mmol/L LAB CHEMISTRY METHOD 09/07/2024 12:51 PM EDT [facility] Chloride 111(H) 96 [...] LAB CHEMISTRY METHOD 09/07/2024 12:51 PM EDT [facility] Total Bilirubin 0.9 0.0 - 1.4 mg/dL LAB CHEMISTRY METHOD 09/07/2024 12:51 PM EDT [facility] Blood Venous blood specimen / Unknown Venipuncture / Unknown 09/07/2024 5:09 AM EDT 09/07/2024 11:28 AM EDT us Yaya Dobbins MD LAB BLOOD ORDERABLES Final Resu lt [facility] [address] [place] [address], [place] [phone] * (ABNORMAL) Complete blood count (09/07/2024 5:09 AM EDT) WBC 8.2 4.8 - 10.8 K/mcL LAB HEMETOLOGY METHOD 09/07/2024 1:09 PM EDT [facility] RBC 3.10(L) 3.80 - 4.80 M/mcL LAB HEMETOLOGY METHOD [facility] Hemoglobin 9.3(L) 11.5 - 16.0 g/dL LAB HEMETOLOGY METHOD 09/07/2024 1:09 PM EDT [facility] Hematocrit 29.6(L) 35.0 - 47.0 % LAB HEMETOLOGY METHOD 09/07/2024 1:09 PM EDT [facility] MCV 97.0 79.0 - 98.0 FL LAB HEMETOLOGY METHOD 09/07/2024 [facility] MCH 30.5 27.0 - 32.0 pcg LAB HEMETOLOGY METHOD 09/07/2024 1:09 PM EDT [facility] MCHC 31.4(L) 32.0 - 37.0 g/dL LAB HEMETOLOGY METHOD 09/07/2024 1:09 PM EDT [facility] RDW 13.6 11.0 - 15.0 % LAB HEMETOLOGY METHOD 09/07/2024 1:09 PM EDT [facility] Platelets 229 130 - 400 K/mcL LAB HEMETOLOGY METHOD 09/07/2024 1:09 PM EDT [facility] MPV 10.7 7.0 - 11.0 FL LAB HEMETOLOGY METHOD 09/07/2024 1:09 PM EDT [facility] NRBC 0.0 <1.0 % LAB HEMETOLOGY METHOD 09/07/2024 1:09 PM EDT [facility] NRBC Absolute 0.00 <0.10 K/mcL LAB HEMETOLOGY METHOD 09/07/2024 1:09 PM EDT [facility] Blood Venous blood specimen / Unknown Venipuncture / Unknown 09/07/2024 5:09 AM EDT 09/07/2024 11:28 AM EDT Yaya Dobbins MD LAB BLOOD ORDERABLES Final Resu lt [facility] [address] [place] [address], [place] [phone] documented in this encounter Visit Diagnoses Diagnosis Hypothyroidism, unspecified Hyperlipidemia, unspecified documented in this encounter Care Teams Bolt Cutter Relationship Specialty Start Date End Date Yaya Dobbins MD [address] [place] [address] PCP - General Internal Medicine 09/05/24 documented as of this encounter
--- OUTSIDE RECORDS SUMMARY | 2025-02-08 22:40 | XMS_ITS | Clinical Summary ---
Author Organization [address] [facility] Address [address] [place] [address] Phone Care Team Providers Care Rigging Foreman Name Role Phone Yaya Dobbins MD Primary Care Provider [phone] Social History Tobacco Use Types Packs/Day Years Used Date Smoking Tobacco: Never Assessed Comments Unknown Sex and Gender Information Value Date Recorded Sex Assigned at Not on file Legal Sex Female 12:48 PM EST Gender Identity Not on file Sexual Orientation Not on file Plan of Treatment Health Maintenance Due Date Last Done Comments DTaP,Tdap,and Td Vaccines (1 - Tdap) 1964 Pneumococcal Vaccine: 50+ Ye ars (1 of 2 - PCV) 1964 Zoster Vaccines (1 of 2) 09/25/1995 RSV Immunization Adult Patie nts (1 - 1-dose 75+ series) 2020 Depression Screening 03/04/2024 Cholesterol Screening (Lipid Panel) 09/05/2024 Falls Risk Assessment 09/05/2024 Hepatitis C Screening 09/05/2024 Osteoporosis Screening (Bone Density Screening) 09/05/2024 Social Influencers of Health Screening 09/05/2024 COVID-19 Vaccine ( - 2024-2 6 season) 2024 Influenza Vaccine (#1) 2024 HIB Vaccines Aged Out No longer eligi [...] to complete this topic RSV Immunization Patients Un marni 20 months Aged Out No longer eligible b ased on patient's age to complete this topic Varicella Vaccines Aged Out No longer eligible based on patient's age to complete this topic Insurance [facility] Care Teams Rigging Foreman Relationship Specialty Start Date End Date Yaya Dobbins MD [address] [place] [phone] PCP - General Internal Medicine 09/05/24
== END 2025-02-08 14:43 | disposition home or self-care (01) ==
LOC: HO.HMCSH 13:54
PROVIDERS: PCP Physician Assistant Medical; Visit Provider Physician Assistant Medical
DX: I10 Essential (primary) hypertension (principal); G89.29 Other chronic pain; L85.3 Xerosis cutis; L98.9 Disorder of the skin and subcutaneous tissue, unspecified; D22.9 Melanocytic nevi, unspecified; F41.9 Anxiety disorder, unspecified; F32.A Depression, unspecified; Z00.00 Encounter for general adult medical examination without abnormal findings

== ENCOUNTER → 2025-02-08 13:54 | Outpatient (BNVA) | payer MEDICARE, SELFPAY | PROVIDERS: PCP Physician Assistant Medical; Visit Provider Physician Assistant Medical | DX: Z00.00 Encounter for general adult medical examination without abnormal findings (principal); I10 Essential (primary) hypertension; G89.29 Other chronic pain; L85.3 Xerosis cutis; L98.9 Disorder of the skin and subcutaneous tissue, unspecified; D22.9 Melanocytic nevi, unspecified; F41.9 Anxiety disorder, unspecified; F32.A Depression, unspecified | CPT/HCPCS: 96127; 99212 ==

== ENCOUNTER 2025-02-16 13:13 | Outpatient (REF) | payer MEDICARE, SELFPAY ==
--- OUTSIDE RECORDS SUMMARY | 2025-02-16 17:14 | XMS_ITS | Encounter Summary ---
Author Organization [facility] Address [address] [place] [address] Care Team Providers Care Bank Manager Name Role Phone Yaya Dbobins MD Primary Care Provider [phone] Encounter Details Date Type Department Care Team (Late st Contact Info) Description 09/19/2024 Lab Requisition [facility] - Main Lab 299 [facility] [place] [address] Yaya Dobbins MD [address] [place] [address] Hyperlipidemia, unspecified Social History Tobacco [...] LAB CHEMISTRY METHOD 09/21/2024 11:20 AM T [facility] Potassium 4.0 3.5 - 5.5 mmol/L LAB CHEMISTRY METHOD 09/21/2024 11:20 AM EDT [facility] Chloride 114(H) 96 - 110 mmol/L LAB CHEMISTRY METHOD 09/21/2024 11:20 AM [facility] CO2 22 21 - 32 mmol/L LAB CHEMISTRY METHOD 09/21/2024 11:20 AM [facility] Anion Gap 8 3 - 11 LAB CHEMISTRY METHOD 09/21/2024 11:20 AM [facility] Glucose 82 70 - 100 mg/dL LAB CHEMISTRY METHOD 09/21/2024 11:20 AM [facility] BUN 13 5 - 25 mg/dL LAB CHEMISTRY METHOD 09/21/2024 11:20 AM [facility] Creatinine 0.61 0.50 - 1.10 mg/dL LAB CHEMISTRY METHOD 09/21/2024 11:20 AM [facility] eGFR 92 >=60 mL/min/1. 73m2 LAB CHEMISTRY METHOD 09/21/2024 11:20 AM [facility] Comment:Calculation based on the Chronic Kidney Disease Epidemiology Collaboration (CKD-EPI) equation refit without adjustment for race. BUN/Creatinine Ratio 21.3 LAB CHEMISTRY METHOD 09/21/2024 11:20 AM [facility] Calcium 9.0 8.5 - 10.5 mg/dL LAB CHEMISTRY METHOD 09/21/2024 11:20 AM [facility] AST (SGOT) 40 10 - 42 unit/L LAB CHEMISTRY METHOD 09/21/2024 11:20 AM [facility] ALT (SGPT) 31 10 - 60 unit/L LAB CHEMISTRY METHOD 09/21/2024 11:20 AM [facility] Alkaline Phosphatase 140(H) 42 - 121 unit/L LAB CHEMISTRY METHOD 09/21/2024 11:20 AM [facility] Total Protein 5.3(L) 6.0 - 8.0 g/dL LAB CHEMISTRY METHOD 09/21/2024 11:20 AM [facility] Albumin 3.1(L) 3.2 - 5.0 g/dL LAB CHEMISTRY METHOD 09/21/2024 11:20 AM [facility] Total Bilirubin 0.5 0.0 - 1.4 mg/dL LAB CHEMISTRY METHOD 09/21/2024 11:20 AM [facility] Blood Venous blood specimen / Unknown Venipuncture / Unknown 09/21/2024 4:46 AM EDT 09/21/2024 11:05 AM EDT us Yaya Dobbins MD LAB BLOOD ORDERABLES Final Resu lt [facility] [address] [place] [address], * (ABNORMAL) Complete blood count (09/21/2024 4:46 AM EDT) WBC 5.6 4.8 - 10.8 K/mcL LAB HEMETOLOGY METHOD 09/21/2024 10:22 AM [facility] RBC 3.10(L) 3.80 - 4.80 M/mcL LAB HEMETOLOGY METHOD 09/21/2024 10:22 AM [facility] Hemoglobin 9.8(L) 11.5 - 16.0 g/dL LAB HEMETOLOGY METHOD 09/21/2024 10:22 AM [facility] Hematocrit 31.4(L) 35.0 - 47.0 % LAB HEMETOLOGY METHOD 09/21/2024 10:22 AM [facility] MCV 101.0(H) 79.0 - 98.0 FL LAB HEMETOLOGY METHOD 09/21/2024 10:22 AM [facility] MCH 31.5 27.0 - 32.0 pcg LAB HEMETOLOGY METHOD 09/21/2024 10:22 AM [facility] MCHC 31.2(L) 32.0 - 37.0 g/dL LAB HEMETOLOGY METHOD 09/21/2024 10:22 AM EDT [facility] RDW 15.7(H) 11.0 - 15.0 % LAB HEMETOLOGY METHOD 09/21/2024 10:22 AM EDT [facility] Platelets 273 130 - 400 K/mcL LAB HEMETOLOGY METHOD 09/21/2024 10:22 AM EDT [facility] MPV 10.6 7.0 - 11.0 FL LAB HEMETOLOGY METHOD 09/21/2024 10:22 AM EDT [facility] NRBC 0.0 <1.0 % LAB HEMETOLOGY METHOD 09/21/2024 10:22 AM EDT [facility] NRBC Absolute 0.00 <0.10 K/mcL LAB HEMETOLOGY METHOD 09/21/2024 10:22 AM EDT [facility] Blood Venous blood specimen / Unknown Venipuncture / Unknown 09/21/2024 4:46 AM EDT 09/21/2024 10:02 AM EDT Yaya Dobbins MD LAB BLOOD ORDERABLES Final Resu lt [facility] [address] [place] [address], documented in this encounter Visit Diagnoses Diagnosis Hyperlipidemia, unspecified documented in this encounter Care Teams Bank Manager Relationship Specialty Start Date End Date Yaya Dobbins MD [address] [place] [address] PCP - General Internal Medicine 09/05/24 documented as of this encounter
--- OUTSIDE RECORDS SUMMARY | 2025-02-16 17:14 | XMS_ITS | Clinical Summary ---
Author Organization [address] [facility] Address [address] [place] [address] Phone Care Team Providers Care Priming Powder Premix Blender Name Role Phone Yaya Dobbins MD Primary Care Provider [phone] Social History Tobacco Use Types Packs/Day Years [...] patient's age to complete this topic Insurance [facility] Care Teams Priming Powder Premix Blender Relationship Specialty Start Date End Date Yaya Dobbins MD [address] [place] [phone] PCP - General Internal Medicine 09/05/24
--- OUTSIDE RECORDS SUMMARY | 2025-02-16 17:15 | XMS_ITS | Encounter Summary ---
Author Organization [facility] Address [address] [place] [address] Care Team Providers Care Crushing Foreman Name Role Phone Yaya Dobbins MD Primary Care Provider [phone] Encounter Details Date Type Department Care Team (Late st Contact Info) Description 09/05/2024 Lab Requisition [facility] - Main Lab 299 [facility] [place] [address] Yaya Dobbins MD [address] [place] [address] Hyperlipidemia, unspecified; Hypothyroidism, unspecified Social [...] LAB CHEMISTRY METHOD 09/05/2024 10:48 AM EDT [facility] Potassium 4.1 3.5 - 5.5 mmol/L LAB CHEMISTRY METHOD 09/05/2024 10:48 AM EDT [facility] Chloride 109 96 - [...] LAB CHEMISTRY METHOD 09/05/2024 10:48 AM EDT [facility] Total Bilirubin 0.9 0.0 - 1.4 mg/dL LAB CHEMISTRY METHOD 09/05/2024 10:48 AM [facility] Blood Venous blood specimen / Unknown Venipuncture / Unknown 09/05/2024 6:49 AM EDT 09/05/2024 9:23 AM EDT us Yaya Dobbins MD LAB BLOOD ORDERABLES Final Resu lt [facility] [address] [place] [address], [place] [phone] * (ABNORMAL) Complete blood count (09/05/2024 6:49 [...] LAB HEMETOLOGY METHOD 09/05/2024 10:27 AM EDT [facility] RDW 13.0 11.0 - 15.0 % LAB HEMETOLOGY METHOD 09/05/2024 10:27 AM EDT [facility] Platelets 194 130 - 400 K/mcL LAB HEMETOLOGY METHOD 09/05/2024 10:27 AM EDT [facility] MPV 11.2(H) 7.0 - 11.0 FL LAB HEMETOLOGY METHOD 09/05/2024 10:27 AM EDT [facility] NRBC 0.0 <1.0 % LAB HEMETOLOGY METHOD 09/05/2024 10:27 AM EDT [facility] NRBC Absolute 0.00 <0.10 K/mcL LAB HEMETOLOGY METHOD 09/05/2024 10:27 AM EDT [facility] Blood Venous blood specimen / Unknown Venipuncture / Unknown 09/05/2024 6:49 AM EDT 09/05/2024 9:23 AM EDT us Yaya Dobbins MD LAB BLOOD ORDERABLES Final Resu lt [facility] [address] [place] [address], documented in this encounter Visit Diagnoses Diagnosis Hyperlipidemia, unspecified Hypothyroidism, unspecified documented in this encounter Care Teams Crushing Foreman Relationship Specialty Start Date End Date Yaya Dobbins MD [address] [place] [address] PCP - General Internal Medicine 09/05/24 documented as of this encounter
--- OUTSIDE RECORDS SUMMARY | 2025-02-16 17:15 | XMS_ITS | Encounter Summary ---
Author Organization [facility] Address [address] [place] [address] Care Team Providers Care Play Back Operator Name Role Phone Yaya Dobbins MD Primary Care Provider [phone] Encounter Details Date Type Department Care Team (Late st Contact Info) Description 09/09/2024 Lab Requisition [facility] - Main Lab [address] [facility] [address] Yaya Dobbins MD [address] [place] [address] Hyperlipidemia, unspecified Social History Tobacco [...] LAB CHEMISTRY METHOD 09/10/2024 9:[address] [facility] Potassium 4.2 3.5 - 5.5 mmol/L LAB CHEMISTRY METHOD 09/10/2024 9:[address] [facility] Chloride 113(H) 96 - 110 mmol/L LAB CHEMISTRY METHOD 09/10/2024 9:35 AM [facility] CO2 26 21 - 32 mmol/L LAB CHEMISTRY METHOD 09/10/2024 9:35 AM [facility] Anion Gap 5 3 - 11 LAB CHEMISTRY METHOD 09/10/2024 9:35 AM [facility] Glucose 86 70 - 100 mg/dL LAB CHEMISTRY METHOD 09/10/2024 9:35 AM [facility] BUN 10 5 - 25 mg/dL LAB CHEMISTRY METHOD 09/10/2024 9:35 AM [facility] Creatinine 0.51 0.50 - 1.10 mg/dL LAB CHEMISTRY METHOD 09/10/2024 9:35 AM [facility] eGFR 96 >=60 mL/min/1. 73m2 LAB CHEMISTRY METHOD 09/10/2024 9:35 AM [facility] Comment:Calculation based on the Chronic Kidney Disease Epidemiology Collaboration (CKD-EPI) equation refit without adjustment for race. BUN/Creatinine Ratio 19.6 LAB CHEMISTRY METHOD 09/10/2024 9:35 AM [facility] Calcium 9.1 8.5 - 10.5 mg/dL LAB CHEMISTRY METHOD 09/10/2024 9:35 AM [facility] Blood Venous blood specimen / Unknown Venipuncture / Unknown 09/10/2024 4:58 AM EDT 09/10/2024 8:42 AM EDT us Yaya Dobbins MD LAB BLOOD ORDERABLES Final Resu lt [facility] [address] [place] [address], * (ABNORMAL) Complete blood count (09/10/2024 4:58 AM EDT) WBC 7.7 4.8 - 10.8 K/[facility] LAB HEMETOLOGY METHOD 09/10/2024 9:07 AM [facility] RBC 3.00(L) 3.80 - 4.80 M/mcL LAB HEMETOLOGY METHOD 09/10/2024 9:07 AM [facility] Hemoglobin 9.5(L) 11.5 - 16.0 g/dL LAB HEMETOLOGY METHOD 09/10/2024 9:07 AM [facility] Hematocrit 29.7(L) 35.0 - 47.0 % LAB HEMETOLOGY METHOD 09/10/2024 9:07 AM [facility] MCV 98.3(H) 79.0 - 98.0 FL LAB HEMETOLOGY METHOD 09/10/2024 9:07 AM [facility] MCH 31.5 27.0 - 32.0 pcg LAB HEMETOLOGY METHOD 09/10/2024 9:07 AM [facility] MCHC 32.0 32.0 - 37.0 g/dL LAB HEMETOLOGY METHOD 09/10/2024 9:07 AM [facility] RDW 14.1 11.0 - 15.0 % LAB HEMETOLOGY METHOD 09/10/2024 9:07 AM [facility] Platelets 304 130 - 400 K/mcL LAB HEMETOLOGY METHOD 09/10/2024 9:07 AM [facility] MPV 10.5 7.0 - 11.0 FL LAB HEMETOLOGY METHOD 09/10/2024 9:07 AM [facility] NRBC 0.0 <1.0 % LAB HEMETOLOGY METHOD 09/10/2024 9:07 AM [facility] NRBC Absolute 0.00 <0.10 K/mcL LAB HEMETOLOGY METHOD 09/10/2024 9:07 AM [facility] Blood Venous blood specimen / Unknown Venipuncture / Unknown 09/10/2024 4:58 AM EDT 09/10/2024 8:45 AM EDT Yaya Dobbins MD LAB BLOOD ORDERABLES Final Resu lt [facility] ([facility] [address] [place] [address], documented in this encounter Visit Diagnoses Diagnosis Hyperlipidemia, unspecified documented in this encounter Care Teams Play Back Operator Relationship Specialty Start Date End Date Yaya Dobbins MD [address] [place] [address] PCP - General Internal Medicine 09/05/24 documented as of this encounter
--- OUTSIDE RECORDS SUMMARY | 2025-02-16 17:15 | XMS_ITS | Encounter Summary ---
Author Organization [facility] Address [address] [place] [address] Care Team Providers Care Hydroelectric Plant Technician Name Role Phone Yaya Dobbins MD Primary Care Provider [phone] Encounter Details Date Type Department Care Team (Late st Contact Info) Description 09/07/2024 Lab Requisition [facility] - Main Lab [address] [facility] [place] [address] Yaya Dobbins MD [address] [place] [address] Hypothyroidism, unspecified; Hyperlipidemia, unspecified Social [...] LAB CHEMISTRY METHOD 09/07/2024 12:51 PM EDT [facility] Potassium 4.0 3.5 - 5.5 mmol/L LAB CHEMISTRY METHOD 09/07/2024 12:51 PM EDT [facility] Chloride 111(H) 96 - [...] LAB CHEMISTRY METHOD 09/07/2024 12:51 PM EDT [facility] Total Bilirubin 0.9 0.0 - 1.4 mg/dL LAB CHEMISTRY METHOD 09/07/2024 12:51 PM EDT [facility] Blood Venous blood specimen / Unknown Venipuncture / Unknown 09/07/2024 5:09 AM EDT 09/07/2024 11:28 AM EDT us Yaya Dobbins MD LAB BLOOD ORDERABLES Final Resu lt [facility] [address] [place] [address], [place] [phone] * (ABNORMAL) Complete blood count (09/07/2024 5:09 AM EDT) WBC 8.2 4.8 - 10.8 K/mcL LAB HEMETOLOGY METHOD 09/07/2024 1:09 PM EDT [facility] RBC 3.10(L) 3.80 - 4.80 M/mcL LAB HEMETOLOGY METHOD 09/07[facility]24 [facility] Hemoglobin 9.3(L) 11.5 - 16.0 g/dL LAB HEMETOLOGY METHOD 09/07/2024 1:09 PM EDT [facility] Hematocrit 29.6(L) 35.0 - 47.0 % LAB HEMETOLOGY METHOD 09/07/2024 1:09 PM EDT [facility] MCV 97.0 79.0 - 98.0 FL LAB HEMETOLOGY METHOD 09/07/2024 1:[facility] MCH 30.5 27.0 - 32.0 pcg LAB HEMETOLOGY METHOD 09/07/2024 1:09 PM EDT [facility] MCHC 31.4(L) 32.0 - 37.0 g/dL LAB HEMETOLOGY METHOD 09/07/2024 1:09 PM EDT [facility] RDW 13.6 11.0 - 15.0 % LAB HEMETOLOGY METHOD 09/07/2024 1:09 PM EDT [facility] Platelets 229 130 - 400 K/mcL LAB HEMETOLOGY METHOD 09/07/2024 1:09 PM EDT [facility] MPV 10.7 7.0 - 11.0 FL LAB HEMETOLOGY METHOD 09/07/2024 1:09 PM EDT [facility] NRBC 0.0 <1.0 % LAB HEMETOLOGY METHOD 09/07/2024 1:09 PM EDT [facility] NRBC Absolute 0.00 <0.10 K/mcL LAB HEMETOLOGY METHOD 09/07/2024 1:09 PM EDT [facility] Blood Venous blood specimen / Unknown Venipuncture / Unknown 09/07/2024 5:09 AM EDT 09/07/2024 11:28 AM EDT Yaya Dobbins MD LAB BLOOD ORDERABLES Final Resu lt [facility] [address] [place] [address], [place] [phone] documented in this encounter Visit Diagnoses Diagnosis Hypothyroidism, unspecified Hyperlipidemia, unspecified documented in this encounter Care Teams Hydroelectric Plant Technician Relationship Specialty Start Date End Date Yaya Dobbins MD [address] [place] [address] PCP - General Internal Medicine 09/05/24 documented as of this encounter
--- OUTSIDE RECORDS SUMMARY | 2025-02-16 17:15 | XMS_ITS | Clinical Summary ---
Author Organization [facility] Address [address] [place], [place] [id number] Phone Care Team Providers Care Broadcast Operations Director Name Role Phone Rodolfo Stein MD Primary Care Provider [phone] Allergies Active Allergy Reactions Criticality Noted Date [...] topic Medical Devices Not on file Insurance [facility] [address] [place], [place] [address]O [facility] [address] [place] [address] [place] [id number] [facility] [employer] Care Teams Broadcast Operations Director Relationship Specialty Start Date End Date Rodolfo Stein MD [address] [place] [id number] PCP - General Internal Medicine 01/22/14 Additional Source Comments The information contained in this document represents components of the legal health record. It is not the complete legal health record.[facility]
--- OUTSIDE RECORDS SUMMARY | 2025-02-16 17:15 | XMS_ITS | Encounter Summary ---
Author Organization [facility] Address [address] [place] [address] Care Team Providers Care Dust Collector Attendant Name Role Phone Yaya Dobbins MD Primary Care Provider [phone] Encounter Details Date Type Department Care Team (Late st Contact Info) Description 09/11/2024 Lab Requisition [facility] - Main Lab [address] [facility] [place] [address] Yaya Dobbins MD [address] [place] [address] Hyperlipidemia, unspecified Social History Tobacco [...] mmol/L LAB CHEMISTRY METHOD 09/14/2024 1:49 PM [facility] CO2 26 21 - 32 mmol/L LAB CHEMISTRY METHOD 09/14/2024 1:49 PM [facility] Anion Gap 7 3 - 11 LAB CHEMISTRY METHOD 09/14/2024 1:49 PM [facility] Glucose 72 70 - 100 mg/dL LAB CHEMISTRY METHOD 09/14/2024 1:49 PM [facility] BUN 12 5 - 25 mg/dL LAB CHEMISTRY METHOD 09/14/2024 1:49 PM [facility] Creatinine 0.64 0.50 - 1.10 mg/dL LAB CHEMISTRY METHOD 09/14/2024 1:49 PM [facility] eGFR 91 >=60 mL/min/1. 73m2 LAB CHEMISTRY METHOD 09/14/2024 1:49 PM [facility] Comment:Calculation based on the Chronic Kidney Disease Epidemiology Collaboration (CKD-EPI) equation refit without adjustment for race. BUN/Creatinine Ratio 18.8 LAB CHEMISTRY METHOD 09/14/2024 1:49 PM [facility] Calcium 9.0 8.5 - 10.5 mg/dL LAB CHEMISTRY METHOD 09/14/2024 1:49 PM [facility] AST (SGOT) 43(H) 10 - 42 unit/L LAB CHEMISTRY METHOD 09/14/2024 1:49 PM [facility] ALT (SGPT) 31 10 - 60 unit/L LAB CHEMISTRY METHOD 09/14/2024 1:49 PM [facility] Alkaline Phosphatase 125(H) 42 - 121 unit/L LAB CHEMISTRY METHOD 09/14/2024 1:49 PM [facility] Total Protein 5.3(L) 6.0 - 8.0 g/dL LAB CHEMISTRY METHOD 09/14/2024 1:49 PM [facility] Albumin 2.9(L) 3.2 - 5.0 g/dL LAB CHEMISTRY METHOD 09/14/2024 1:49 PM EDT [facility] Total Bilirubin 0.5 0.0 - 1.4 mg/dL LAB CHEMISTRY METHOD 09/14/2024 1:49 PM [facility] Blood Venous blood specimen / Unknown Venipuncture / Unknown 09/14/2024 4:53 AM EDT 09/14/2024 10:55 AM EDT us Yaya Dobbins MD LAB BLOOD ORDERABLES Final Resu lt [facility] [address] [place] [address], * (ABNORMAL) Complete blood count (09/14/2024 4:53 AM EDT) WBC 7.1 4.8 - 10.8 K/mcL LAB HEMETOLOGY METHOD 09/14/2024 11:19 AM [facility] RBC 3.20(L) 3.80 - 4.80 M/mcL LAB HEMETOLOGY METHOD 09/14/2024 11:19 AM [facility] Hemoglobin 10.0(L) 11.5 - 16.0 g/dL LAB HEMETOLOGY METHOD 09/14/2024 11:19 AM [facility] Hematocrit 32.0(L) 35.0 - 47.0 % LAB HEMETOLOGY METHOD 09/14/2024 11:19 AM [facility] MCV 100.6(H) 79.0 - 98.0 FL LAB HEMETOLOGY METHOD 09/14/2024 11:19 AM [facility] MCH 31.4 27.0 - 32.0 pcg LAB HEMETOLOGY METHOD 09/14/2024 11:19 AM [facility] MCHC 31.3(L) 32.0 - [...] Resu lt [facility] [address] [place] [address], documented in this encounter Visit Diagnoses Diagnosis Hyperlipidemia, unspecified documented in this encounter Care Teams Dust Collector Attendant Relationship Specialty Start Date End Date Yaya Dobbins MD [address] [place] [address] PCP - General Internal Medicine 09/05/24 documented as of this encounter
--- OUTSIDE RECORDS SUMMARY | 2025-02-16 17:15 | XMS_ITS | Encounter Summary ---
Author Organization [facility] Address [address] [place] [address] Care Team Providers Care Labor Relations Manager Name Role Phone Yaya Dobbins MD Primary Care Provider Encounter Details Date Type Department Care Team (Late st Contact Info) Description 09/16/2024 Lab Requisition [facility] - Main Lab [address] [facility] [employer] [address] Yaya Dobbins MD [address] [place] [address] Hyperlipidemia, unspecified Social History Tobacco [...] LAB CHEMISTRY METHOD 09/17/2024 9:16 AM EDT [facility] Potassium 4.1 3.5 - 5.5 mmol/L LAB CHEMISTRY METHOD 09/17/2024 9:16 AM EDT [facility] Chloride 114(H) 96 - 110 [...] Final Resu lt [facility] [address] [place] [address], * (ABNORMAL) Complete blood count (09/17/2024 4:51 AM EDT) WBC 5.9 4.8 - 10.8 K/[facility] LAB HEMETOLOGY METHOD 09/17/2024 8:39 AM [place] [...] MD LAB BLOOD ORDERABLES Final Resu lt [facility] [address] [place] [address], documented in this encounter Visit Diagnoses Diagnosis Hyperlipidemia, unspecified documented in this encounter Care Teams Labor Relations Manager Relationship Specialty Start Date End Date Yaya Dobbins MD [address] [place] [address] PCP - General Internal Medicine 09/05/24 documented as of this encounter
[2025-02-16 17:17] LABS: Folate 16.2 ng/mL (> or = 4.0); Vitamin B12 383 pg/mL (200-900)
[2025-02-16 18:53] LABS: Free T4 (Free Thyroxine) 0.98 ng/dL (0.71-1.85)
== END 2025-02-16 13:14 | disposition home or self-care (01) ==
LOC: HO.HMGCLDS 13:13
PROVIDERS: PCP Physician Assistant Medical; Visit Provider Physician Assistant Medical
DX: Z00.00 Encounter for general adult medical examination without abnormal findings (principal); Z13.21 Encounter for screening for nutritional disorder; Z13.29 Encounter for screening for other suspected endocrine disorder
CPT/HCPCS: 36415; 82306; 82607; 82746; 84439; 84443

== ENCOUNTER 2025-02-18 12:59 | Outpatient (AMB) | payer MEDICARE, SELFPAY ==
--- NOTE | 2025-02-18 13:00 | A.OFFVIS_ITS ---
Intake Visit Reasons: 3m/US/UA(SET) Intake Note: Patient is present for /US Urology Medication:VITAMIN C Antibiotic Allergy:NONE Blood Thinner:NONE Evidence Custodian Required: No Allergies oxycodone (OXYCODONE) Allergy (Severe, Verified 02/18/25 13:03) N/V aspirin (ASPIRIN) Allergy (Intermediate, Verified 02/18/25 13:03) GI UPSET/BLEEDING latex (LATEX) Allergy (Intermediate, Verified 02/18/25 13:03) RASH NSAIDS (Non-Steroidal Anti-Inflamma (NSAIDS (NON-STEROIDAL ANTI-INFLAMMA) Allergy (Intermediate, Verified 02/18/25 13:03) GI UPSET/BLEEDING naproxen (From Aleve) Allergy (Verified 02/18/25 13:03) Diarrhea Medication List - Last Reconciled 02/18/25 by MEHREEN Jones-NANNETTE ascorbic acid (vitamin C) ER 1,000 mg PO DAILY betamethasone dipropionate 0.05% 1 appl topical BID PRN carvedilol 3.125 mg PO BID 90 days clotrimazole 1% 1 appl topical bid 4 weeks cyclobenzaprine 10 mg PO Q8H PRN cyclobenzaprine 10 mg PO BEDTIME diclofenac sodium 1% (Voltaren Arthritis Pain) 4 grams topical QID emollient combination no.119 (Eucerin Advanced Repair topical cream) 1 appl topical DAILY furosemide (Lasix) 40 mg PO DAILY 5 days glipizide 5 mg PO BID 90 days latanoprost 0.005% 1 drp ophthalmic (eye) DAILY levothyroxine 75 mcg PO DAILY lisinopril 10 mg PO DAILY lorazepam 0.5 mg PO DAILY PRN multivitamin 1 tab PO DAILY pyridoxine (vitamin B6) 100 mg PO DAILY 90 days simvastatin 20 mg PO BEDTIME HPI Comments Details: Merly is a 78-year-old female patient of Dr. Coleman. She has a past medical history of obesity, hypertension, type 2 diabetes, bilateral osteoarthritis, anxiety, GI bleed, tonsillar cancer status post radiation. She is being followed up on today via telehealth for her history of nephrolithiasis. In discussion with the patient today she denies having had any bothersome urological issues or concerns since her last office visit here approximately 6 months ago. She does discuss having had recent surgical intervention for her hip and has been nerve issues with her hip. Most recent renal imaging results reviewed with the patient today 12/26 bilateral kidneys are normal in size and e chotexture. There are bilateral renal parenchymal calculi. There is a Bosniak 1 right renal cysts measuring 5.5 cm. The urinary bladder is unremarkable. No acute findings per radiology report. Stone composition was reviewed 08/26 20% calcium oxalate dehydrate 80% calcium oxalate monohydrate. She denies any previous history of nephrolithiasis and or surgical intervention for nephrolithiasis. She does report a history of stress incontinence however feels she is managing this well independently at this time. We did review further treatment options. However, we will continue with surveillance monitoring. She denies hematuria, dysuria, foul smelling urine, changes to urinary stream, flank pain, fever, and or chills. All questions were answered. She otherwise offers no other issues or concerns at this time. [facility] Medical History Healthcare maintenance Xerosis of skin Chronic pain Depression Numerous moles Skin lesions Venous insufficiency Throat infection Type 2 diabetes mellitus with hemoglobin A1c goal of less than 7.0% Cellulitis of lower leg Preventative health care Kidney stone Hip pain Cellulitis of left foot Pedal edema Medication management Hypothyroidism Class 1 obesity with body mass index (BMI) of 32.0 to 32.9 in adult History of mammogram (~07/15/24) Cough Establishing care with new doctor, encounter for Anxiety GI bleed Surgical History S/P total left hip arthroplasty History of colonoscopy (~07/08/19) S/P tooth extraction Family History Father S/P CABG x 4 Stroke Heart attack Heart disease Mother Cancer Paternal Uncle Heart disease Diabetes Paternal Uncle Heart disease Daughter Multiple sclerosis Paternal Grandmother Diabetes Maternal Grandfather Stomach cancer Social History Housing: House Alcohol intake: current Alcohol intake frequency: does not drink Patient Tobacco Use Status: Former Tobacco user service: No Current occupational status: retired Cognitive needs: Yes (walker) Hearing needs: No Vision needs: Yes (uses glasses for reading, not prescribed) Review of Systems Const All systems reviewed & are unremarkable except as noted in HPI and below Physical Exam Const General: cooperative Orientation/consciousness: patient oriented x3 Resp Effort & Inspection: able to speak in complete sentences Neuro General: patient oriented x3 Psych Speech and movement: Clear speech present Attitude: cooperative Thought process: Normal thought process present Thought content: Normal thought content present Insight: Fair insight present (Psych) Judgement: Fair judgement present (Psych) Telehealth Telehealth Telehealth Platform: Telephone Location of provider rendering services: practice address Location of patient: address on file Patient Identification confirmed using: Name, : Yes Telehealth method: voice only Patient verbally consented to treatment: Yes Patient verbally consented to billing insurance company: Yes Patient informed of any privacy concerns related to visit: Yes Minutes spent on Phone/Video with Pt.: 15 Results Reviewed Results Reviewed: Date of Service: 12/17/24 Procedure(s): US retroperitoneal comp Findings: Right kidney normal size and echotexture, 10.7 cm length. Left kidney normal size and echotexture, 10.2 cm length. No hydronephrosis of either kidney. Normal color Doppler. There are bilateral renal parenchymal calculi. There is a Bosniak 1 right renal cortical 5.5 x 5.0 x 4.2 cm cyst. Urinary bladder is unremarkable. Prevoid volume 226 mL. Postvoid volume 24.1 mL. Bilateral ureteral jets are visualized. IMPRESSION: 1. Renal parenchymal calculi. No acute findings Assessment & Plan Assessment & Plan (1) Kidney stone: Code(s): N20.0 - Calculus of kidney Category: Medical Plan In office urinalysis results reviewed with the patient today; as noted above. Recent renal imaging results reviewed with the patient today; as noted above. We discussed at length the importance of adequate hydration relation to nephrolithiasis as well as overall health and well-being. We discussed adding 1 oz of lemon juice to water daily. Stop vitamin B6. She currently denies any bothersome urinary issues or concerns. She reports be happy with current voiding parameters. Will obtain KUB in 6 months Follow-up in 6 months with imaging; or sooner with any issues, concerns, and or questions. Orders: Orders XR KUB 6 Months N20.0 - Calculus of kidney Patient Instructions: The patient had an opportunity to ask questions regarding the treatment plan. All questions were answered. Physical exam, labs, and imaging were discussed and reviewed in detail. As well as risks, benefits, and discussion of treatment choices. No major barriers to understanding were identified. The patient expressed understanding and agreement with the above treatment plan. The patient was made aware they should contact our office by phone for worsening of their current condition, the appearance of new symptoms, or with any questions or concerns. Compliance is encouraged with any medications and follow up testing that is ordered. It is a privilege to be allowed the opportunity to participate in? your urological care.? Again, if you have any questions or concerns If you have any questions or concerns please do not hesitate to contact me. The office is [phone]. This note is constructed using voice recognition software. While every effort has been made to ensure accuracy immigration manager errors may have been included. Yours sincerely, ANTHONY Jones Coding Level of Care Code Tele Est Pt Level 3 (46263) Add On Problem Visit Only Diagnoses Kidney stone N20.0
--- OUTSIDE RECORDS SUMMARY | 2025-02-18 16:53 | XMS_ITS | Encounter Summary ---
Author Organization [facility] Address [address] [place] [address] Care Team Providers Care Counter Checker Name Role Phone Yaya Dobbins MD Primary Care Provider [phone] Encounter Details Date Type Department Care Team (Late st Contact Info) Description 09/11/2024 Lab Requisition [facility] - Main Lab [address] [facility] [place] [address] Yaya Dobbins MD [address] [place] [address] Hyperlipidemia, unspecified Social History Tobacco [...] LAB CHEMISTRY METHOD 09/14/2024 1:49 PM EDT [facility] Potassium 4.0 3.5 - 5.5 mmol/L LAB CHEMISTRY METHOD 09/14/2024 1:49 PM EDT [facility] Chloride 112(H) 96 - 110 mmol/L LAB CHEMISTRY METHOD 09/14/2024 1:49 PM [facility] CO2 26 21 - 32 mmol/L LAB CHEMISTRY METHOD 09/14/2024 1:49 PM [facility] Anion Gap 7 3 - 11 LAB CHEMISTRY METHOD 09/14/2024 1:49 PM [facility] Glucose 72 70 - 100 mg/dL LAB CHEMISTRY METHOD 09/14/2024 1:49 PM [facility] BUN 12 5 - 25 mg/dL LAB CHEMISTRY METHOD 09/14/2024 1:49 PM [facility] Creatinine 0.64 0.50 - 1.10 mg/dL LAB CHEMISTRY METHOD 09/14/2024 1:49 PM [facility] eGFR 91 >=60 mL/min/1. 73m2 LAB CHEMISTRY METHOD 09/14/2024 1:49 PM [facility] Comment:Calculation based on the Chronic Kidney Disease Epidemiology Collaboration (CKD-EPI) equation refit without adjustment for race. BUN/Creatinine Ratio 18.8 LAB CHEMISTRY METHOD 09/14/2024 1:49 PM [facility] Calcium 9.0 8.5 - 10.5 mg/dL LAB CHEMISTRY METHOD 09/14/2024 1:49 PM [facility] AST (SGOT) 43(H) 10 - 42 unit/L LAB CHEMISTRY METHOD 09/14/2024 1:49 PM [facility] ALT (SGPT) 31 10 - 60 unit/L LAB CHEMISTRY METHOD 09/14/2024 1:49 PM [facility] Alkaline Phosphatase 125(H) 42 - 121 unit/L LAB CHEMISTRY METHOD 09/14/2024 1:49 PM [facility] Total Protein 5.3(L) 6.0 - 8.0 g/dL LAB CHEMISTRY METHOD 09/14/2024 1:49 PM [facility] Albumin 2.9(L) 3.2 - 5.0 g/dL LAB CHEMISTRY METHOD 09/14/2024 1:49 PM EDT [facility] Total Bilirubin 0.5 0.0 - 1.4 mg/dL LAB CHEMISTRY METHOD 09/14/2024 1:49 PM [facility] Blood Venous blood specimen / Unknown Venipuncture / Unknown 09/14/2024 4:53 AM EDT 09/14/2024 10:55 AM EDT us Yaya Dobbins MD LAB BLOOD ORDERABLES Final Resu lt [facility] [address] [place] [address], * (ABNORMAL) Complete blood count (09/14/2024 4:53 AM EDT) WBC 7.1 4.8 - 10.8 K/mcL LAB HEMETOLOGY METHOD 09/14/2024 11:19 AM [facility] RBC 3.20(L) 3.80 - 4.80 M/mcL LAB HEMETOLOGY METHOD 09/14/2024 11:19 AM [facility] Hemoglobin 10.0(L) 11.5 - 16.0 g/dL LAB HEMETOLOGY METHOD 09/14/2024 11:19 AM [facility] Hematocrit 32.0(L) 35.0 - 47.0 % LAB HEMETOLOGY METHOD 09/14/2024 11:19 AM [facility] MCV 100.6(H) 79.0 - 98.0 FL LAB HEMETOLOGY METHOD 09/14/2024 11:19 AM [facility] MCH 31.4 27.0 - 32.0 pcg LAB HEMETOLOGY METHOD 09/14/2024 11:19 AM [facility] MCHC 31.3(L) 32.0 - 37.0 g/dL LAB HEMETOLOGY METHOD 09/14/2024 11:19 AM EDT [facility] RDW 14.9 11.0 - 15.0 % LAB HEMETOLOGY METHOD 09/14/2024 11:19 AM EDT [facility] Platelets 321 130 - 400 K/mcL LAB HEMETOLOGY METHOD 09/14/2024 11:19 AM EDT [facility] MPV 10.2 7.0 - 11.0 FL LAB HEMETOLOGY METHOD 09/14/2024 11:19 AM EDT [facility] NRBC 0.0 <1.0 % LAB HEMETOLOGY METHOD 09/14/2024 11:19 AM EDT [facility] NRBC Absolute 0.00 <0.10 K/mcL LAB HEMETOLOGY METHOD 09/14/2024 11:19 AM EDT [facility] Blood Venous blood specimen / Unknown Venipuncture / Unknown 09/14/2024 4:53 AM EDT 09/14/2024 10:54 AM EDT Yaya Dobbins MD LAB BLOOD ORDERABLES Final Resu lt [facility] [address] [place] [address], documented in this encounter Visit Diagnoses Diagnosis Hyperlipidemia, unspecified documented in this encounter Care Teams Counter Checker Relationship Specialty Start Date End Date Yaya Dobbins MD [address] [place] [address] PCP - General Internal Medicine 09/05/24 documented as of this encounter
--- OUTSIDE RECORDS SUMMARY | 2025-02-18 16:53 | XMS_ITS | Encounter Summary ---
Author Organization [facility] Address [address] [place] [address] Care Team Providers Care Slitting Machine Feeder Name Role Phone Yaya Dobbins MD Primary Care Provider [phone] Encounter Details Date Type Department Care Team (Late st Contact Info) Description 09/07/2024 Lab Requisition [facility] - Main Lab [address] [facility] [place] [address] Yaya Dobbins MD [address] [place] [address] Hypothyroidism, unspecified; Hyperlipidemia, unspecified Social [...] LAB CHEMISTRY METHOD 09/07/2024 12:51 PM EDT [facility] Potassium 4.0 3.5 - 5.5 mmol/L LAB CHEMISTRY METHOD 09/07/2024 12:51 PM EDT [facility] Chloride 111(H) 96 - 110 mmol/L LAB CHEMISTRY METHOD 09/07/2024 12:51 PM [facility] CO2 26 21 - 32 mmol/L LAB CHEMISTRY METHOD 09/07/2024 12:51 PM [facility] Anion Gap 7 3 - 11 LAB CHEMISTRY METHOD 09/07/2024 12:51 PM [facility] Glucose 80 70 - 100 mg/dL LAB CHEMISTRY METHOD 09/07/2024 12:51 PM [facility] BUN 10 5 - 25 mg/dL LAB CHEMISTRY METHOD 09/07/2024 12:51 PM [facility] Creatinine 0.60 0.50 - 1.10 mg/dL LAB CHEMISTRY METHOD 09/07/2024 12:51 PM [facility] eGFR 92 >=60 mL/min/1. 73m2 LAB CHEMISTRY METHOD 09/07/2024 12:51 PM [facility] Comment:Calculation based on the Chronic Kidney Disease Epidemiology Collaboration (CKD-EPI) equation refit without adjustment for race. BUN/Creatinine Ratio 16.7 LAB CHEMISTRY METHOD 09/07/2024 12:51 PM [facility] Calcium 8.6 8.5 - 10.5 mg/dL LAB CHEMISTRY METHOD 09/07/2024 12:51 PM [facility] AST (SGOT) 48(H) 10 - 42 unit/L LAB CHEMISTRY METHOD 09/07/2024 12:51 PM [facility] ALT (SGPT) 32 10 - 60 unit/L LAB CHEMISTRY METHOD 09/07/2024 12:51 PM [facility] Alkaline Phosphatase 106 42 - 121 unit/L LAB CHEMISTRY METHOD 09/07/2024 12:51 PM [facility] Total Protein 5.4(L) 6.0 - 8.0 g/dL LAB CHEMISTRY METHOD 09/07/2024 12:51 PM [facility] Albumin 2.9(L) 3.2 - 5.0 g/dL LAB CHEMISTRY METHOD 09/07/2024 12:51 PM EDT [facility] Total Bilirubin 0.9 0.0 - 1.4 mg/dL LAB CHEMISTRY METHOD 09/07/2024 12:51 PM EDT [facility] Blood Venous blood specimen / Unknown Venipuncture / Unknown 09/07/2024 5:09 AM EDT 09/07/2024 11:28 AM EDT us Yaya Dobbins MD LAB BLOOD ORDERABLES Final Resu lt [facility] [address] [place] [address], [place] [phone] * (ABNORMAL) Complete blood count (09/07/2024 5:09 AM EDT) WBC 8.2 4.8 - 10.8 K/mcL LAB HEMETOLOGY METHOD 09/07/2024 1:09 PM EDT [facility] RBC 3.10(L) 3.80 - 4.80 M/mcL LAB [facility] Hemoglobin 9.3(L) 11.5 - 16.0 g/dL LAB HEMETOLOGY METHOD 09/07/2024 1:09 PM EDT [facility] Hematocrit 29.6(L) 35.0 - 47.0 % LAB HEMETOLOGY METHOD 09/07/2024 1:09 PM EDT [facility] MCV 97.0 79.0 - 98.0 FL LAB HEMETOLOGY METHOD [facility]/07[facility]2024 [facility] MCH 30.5 27.0 - 32.0 pcg LAB HEMETOLOGY METHOD 09/07/2024 1:09 PM EDT [facility] MCHC 31.4(L) 32.0 - 37.0 g/dL LAB HEMETOLOGY METHOD 09/07/2024 1:09 PM EDT [facility] RDW 13.6 11.0 - 15.0 % LAB HEMETOLOGY METHOD 09/07/2024 1:09 PM EDT [facility] Platelets 229 130 - 400 K/mcL LAB HEMETOLOGY METHOD 09/07/2024 1:09 PM EDT [facility] MPV 10.7 7.0 - 11.0 FL LAB HEMETOLOGY METHOD 09/07/2024 1:09 PM EDT [facility] NRBC 0.0 <1.0 % LAB HEMETOLOGY METHOD 09/07/2024 1:09 PM EDT [facility] NRBC Absolute 0.00 <0.10 K/mcL LAB HEMETOLOGY METHOD 09/07/2024 1:09 PM EDT [facility] Blood Venous blood specimen / Unknown Venipuncture / Unknown 09/07/2024 5:09 AM EDT 09/07/2024 11:28 AM EDT Yaya Dobbins MD LAB BLOOD ORDERABLES Final Resu lt [facility] [address] [place] [address], [place] [phone] documented in this encounter Visit Diagnoses Diagnosis Hypothyroidism, unspecified Hyperlipidemia, unspecified documented in this encounter Care Teams Slitting Machine Feeder Relationship Specialty Start Date End Date Yaya Dobbins MD [address] [place] [address] PCP - General Internal Medicine 09/05/24 documented as of this encounter
--- OUTSIDE RECORDS SUMMARY | 2025-02-18 16:53 | XMS_ITS | Encounter Summary ---
Author Organization [facility] Address [address] [place] [address] Care Team Providers Care Electrician Apprentice Name Role Phone Yaya Dobbins MD Primary Care Provider [phone] Encounter Details Date Type Department Care Team (Late st Contact Info) Description 09/16/2024 Lab Requisition [facility] - Main Lab [address] [facility] [place] [address] Yaya Dobbins MD [address] [place] [address] Hyperlipidemia, unspecified Social History Tobacco [...] LAB CHEMISTRY METHOD 09/17/2024 9:16 AM EDT [facility] Potassium 4.1 3.5 - 5.5 mmol/L LAB CHEMISTRY METHOD 09/17/2024 9:16 AM EDT [facility] Chloride 114(H) 96 - 110 mmol/L LAB CHEMISTRY METHOD 09/17/2024 9:16 AM [facility] CO2 26 21 - 32 mmol/L LAB CHEMISTRY METHOD 09/17/2024 9:16 AM [facility] Anion Gap 5 3 - 11 LAB CHEMISTRY METHOD 09/17/2024 9:16 AM [facility] Glucose 77 70 - 100 mg/dL LAB CHEMISTRY METHOD 09/17/2024 9:16 AM [facility] BUN 11 5 - 25 mg/dL LAB CHEMISTRY METHOD 09/17/2024 9:16 AM [facility] Creatinine 0.65 0.50 - 1.10 mg/dL LAB CHEMISTRY METHOD 09/17/2024 9:16 AM [facility] eGFR 90 >=60 mL/min/1. 73m2 LAB CHEMISTRY METHOD 09/17/2024 9:16 AM [facility] Comment:Calculation based on the Chronic Kidney Disease Epidemiology Collaboration (CKD-EPI) equation refit without adjustment for race. BUN/Creatinine Ratio 16.9 LAB CHEMISTRY METHOD 09/17/2024 9:16 AM [facility] Calcium 9.2 8.5 - 10.5 mg/dL LAB CHEMISTRY METHOD 09/17/2024 9:16 AM [facility] Blood Venous blood specimen / Unknown Venipuncture / Unknown 09/17/2024 4:51 AM EDT 09/17/2024 7:42 AM EDT us Yaya Dobbins MD LAB BLOOD ORDERABLES Final Resu lt [facility] [address] [place] [address], * (ABNORMAL) Complete blood count (09/17/2024 4:51 AM EDT) WBC 5.9 4.8 - 10.8 [facility] LAB HEMETOLOGY METHOD 09/17/2024 8:39 AM [facility] RBC 3.30(L) 3.80 - 4.80 M/mcL LAB HEMETOLOGY METHOD 09/17/2024 8:39 AM [facility] Hemoglobin 10.1(L) 11.5 - 16.0 g/dL LAB HEMETOLOGY METHOD 09/17/2024 8:39 AM [facility] Hematocrit 32.4(L) 35.0 - 47.0 % LAB HEMETOLOGY METHOD 09/17/2024 8:39 AM [facility] MCV 99.7(H) 79.0 - 98.0 FL LAB HEMETOLOGY METHOD 09/17/2024 8:39 AM [facility] MCH 31.1 27.0 - 32.0 pcg LAB HEMETOLOGY METHOD 09/17/2024 8:39 AM [facility] MCHC 31.2(L) 32.0 - 37.0 g/dL LAB HEMETOLOGY METHOD 09/17/2024 8:39 AM [facility] RDW 15.2(H) 11.0 - 15.0 % LAB HEMETOLOGY METHOD 09/17/2024 8:39 AM [facility] Platelets 324 130 - 400 K/mcL LAB HEMETOLOGY METHOD 09/17/2024 8:39 AM [facility] MPV 10.1 7.0 - 11.0 FL LAB HEMETOLOGY METHOD 09/17/2024 8:39 AM [facility] NRBC 0.0 <1.0 % LAB HEMETOLOGY METHOD 09/17/2024 8:39 AM [facility] NRBC Absolute 0.00 <0.10 K/mcL LAB HEMETOLOGY METHOD 09/17/2024 8:39 AM [facility] Blood Venous blood specimen / Unknown Venipuncture / Unknown 09/17/2024 4:51 AM EDT 09/17/2024 7:42 AM EDT Yaya Dobbins MD LAB BLOOD ORDERABLES Final Resu lt [facility] [address] [place] [address], documented in this encounter Visit Diagnoses Diagnosis Hyperlipidemia, unspecified documented in this encounter Care Teams Electrician Apprentice Relationship Specialty Start Date End Date Yaya Dobbins MD [address] [place] [address] PCP - General Internal Medicine 09/05/24 documented as of this encounter
--- OUTSIDE RECORDS SUMMARY | 2025-02-18 16:53 | XMS_ITS | Encounter Summary ---
Author Organization [facility] Address [address] [place] [address] Care Team Providers Care Icicle Machine Operator Name Role Phone Yaya Dobbins MD Primary Care Provider Encounter Details Date Type Department Care Team (Late st Contact Info) Description 09/19/2024 Lab Requisition [facility] - Main Lab [address] [facility] [address] Yaya Dobbins MD [address] [place] [address] Hyperlipidemia, unspecified Social History Tobacco [...] LAB CHEMISTRY METHOD 09/21/2024 11:20 AM T [facility] Potassium 4.0 3.5 - 5.5 mmol/L LAB CHEMISTRY METHOD 09/21/2024 11:20 AM EDT [facility] Chloride 114(H) 96 - 110 [...] Final Resu lt [facility] [address] [place] [address], * (ABNORMAL) Complete blood count (09/21/2024 4:46 [...] 09/21/2024 10:22 AM EDT [facility] RDW 15.7(H) 11.0 - 15.0 % LAB HEMETOLOGY METHOD 09/21/2024 10:22 AM EDT [facility] Platelets 273 130 - 400 K/mcL LAB HEMETOLOGY METHOD 09/21/2024 10:22 AM EDT [facility] MPV 10.6 7.0 - 11.0 FL LAB HEMETOLOGY METHOD 09/21/2024 10:22 AM EDT [facility] NRBC 0.0 <1.0 % LAB HEMETOLOGY METHOD 09/21/2024 10:22 AM EDT [facility] NRBC Absolute 0.00 <0.10 K/mcL LAB HEMETOLOGY METHOD 09/21/2024 10:22 AM EDT [facility] Blood Venous blood specimen / Unknown Venipuncture / Unknown 09/21/2024 4:46 AM EDT 09/21/2024 10:02 AM EDT Yaya Dobbins MD LAB BLOOD ORDERABLES Final Resu lt [facility] [address] [place] [address], documented in this encounter Visit Diagnoses Diagnosis Hyperlipidemia, unspecified documented in this encounter Care Teams Icicle Machine Operator Relationship Specialty Start Date End Date Yaya Dobbins MD [address] [place] [address] PCP - General Internal Medicine 09/05/24 documented as of this encounter
--- OUTSIDE RECORDS SUMMARY | 2025-02-18 16:53 | XMS_ITS | Encounter Summary ---
Author Organization [facility] Address [address] [place] [address] Care Team Providers Care Overseer Kosher Kitchen Name Role Phone Yaya Dobbins MD Primary Care Provider [phone] Encounter Details Date Type Department Care Team (Late st Contact Info) Description 09/09/2024 Lab Requisition [facility] - Main Lab 299 [facility] [place] [address] Yaya Dobbins MD [address] [place] [address] Hyperlipidemia, unspecified Social History Tobacco [...] LAB CHEMISTRY METHOD 09/10/2024 9:35 AM EDT [facility] Potassium 4.2 3.5 - 5.5 mmol/L LAB CHEMISTRY METHOD 09/10/2024 9:35 AM EDT [facility] Chloride 113(H) 96 - 110 mmol/L LAB CHEMISTRY METHOD 09/10/2024 9:35 AM [facility] CO2 26 21 - 32 mmol/L LAB CHEMISTRY METHOD 09/10/2024 9:35 AM [facility] Anion Gap 5 3 - 11 LAB CHEMISTRY METHOD 09/10/2024 9:35 AM [facility] Glucose 86 70 - 100 mg/dL LAB CHEMISTRY METHOD 09/10/2024 9:35 AM [facility] BUN 10 5 - 25 mg/dL LAB CHEMISTRY METHOD 09/10/2024 9:35 AM [facility] Creatinine 0.51 0.50 - 1.10 mg/dL LAB CHEMISTRY METHOD 09/10/2024 9:35 AM [facility] eGFR 96 >=60 mL/min/1. 73m2 LAB CHEMISTRY METHOD 09/10/2024 9:35 AM [facility] Comment:Calculation based on the Chronic Kidney Disease Epidemiology Collaboration (CKD-EPI) equation refit without adjustment for race. BUN/Creatinine Ratio 19.6 LAB CHEMISTRY METHOD 09/10/2024 9:35 AM [facility] Calcium 9.1 8.5 - 10.5 mg/dL LAB CHEMISTRY METHOD 09/10/2024 9:35 AM [facility] Blood Venous blood specimen / Unknown Venipuncture / Unknown 09/10/2024 4:58 AM EDT 09/10/2024 8:42 AM EDT us Yaya Dobbins MD LAB BLOOD ORDERABLES Final Resu lt [facility] [address] [place] [address], * (ABNORMAL) Complete blood count (09/10/2024 4:58 AM EDT) WBC 7.7 4.8 - 10.8 K/[facility] LAB HEMETOLOGY METHOD 09/10/2024 9:07 AM [facility] RBC 3.00(L) 3.80 - 4.80 M/mcL LAB HEMETOLOGY METHOD 09/10/2024 9:07 AM [facility] Hemoglobin 9.5(L) 11.5 - 16.0 g/dL LAB HEMETOLOGY METHOD 09/10/2024 9:07 AM [facility] Hematocrit 29.7(L) 35.0 - 47.0 % LAB HEMETOLOGY METHOD 09/10/2024 9:07 AM [facility] MCV 98.3(H) 79.0 - 98.0 FL LAB HEMETOLOGY METHOD 09/10/2024 9:07 AM [facility] MCH 31.5 27.0 - 32.0 pcg LAB HEMETOLOGY METHOD 09/10/2024 9:07 AM [facility] MCHC 32.0 32.0 - 37.0 g/dL LAB HEMETOLOGY METHOD 09/10/2024 9:07 AM [facility] RDW 14.1 11.0 - 15.0 % LAB HEMETOLOGY METHOD 09/10/2024 9:07 AM [facility] Platelets 304 130 - 400 K/mcL LAB HEMETOLOGY METHOD 09/10/2024 9:07 AM [facility] MPV 10.5 7.0 - 11.0 FL LAB HEMETOLOGY METHOD 09/10/2024 9:07 AM [facility] NRBC 0.0 <1.0 % LAB HEMETOLOGY METHOD 09/10/2024 9:07 AM [facility] NRBC Absolute 0.00 <0.10 K/mcL LAB HEMETOLOGY METHOD 09/10/2024 9:07 AM [facility] Blood Venous blood specimen / Unknown Venipuncture / Unknown 09/10/2024 4:58 AM EDT 09/10/2024 8:45 AM EDT Yaya Dobbins MD LAB BLOOD ORDERABLES Final Resu lt [facility] [address] [place] [address], documented in this encounter Visit Diagnoses Diagnosis Hyperlipidemia, unspecified documented in this encounter Care Teams Overseer Kosher Kitchen Relationship Specialty Start Date End Date Yaya Dobbins MD [address] [place] [address] PCP - General Internal Medicine 09/05/24 documented as of this encounter
--- OUTSIDE RECORDS SUMMARY | 2025-02-18 16:53 | XMS_ITS | Clinical Summary ---
Author Organization [address] [facility] Address [address] [place] [address] Phone Care Team Providers Care Shift Production Supervisor Name Role Phone Yaya Dobbins MD Primary Care Provider [phone] Social History Tobacco Use Types Packs/Day Years [...] age to complete this topic Insurance [facility] Care Teams Shift Production Supervisor Relationship Specialty Start Date End Date Yaya Dobbins MD [address] [place] [phone] PCP - General Internal Medicine 09/05/24
--- OUTSIDE RECORDS SUMMARY | 2025-02-18 16:54 | XMS_ITS | Encounter Summary ---
Author Organization [facility] Address [address] [place] [address] Care Team Providers Care Med Surg Nurse Name Role Phone Yaya Dobbins MD Primary Care Provider [phone] Encounter Details Date Type Department Care Team (Late st Contact Info) Description 09/05/2024 Lab Requisition [facility] - Main Lab 299 [facility] [place] [address] Yaya Dobbins MD [address] [place] [address] Hyperlipidemia, unspecified; Hypothyroidism, unspecified Social [...] CHEMISTRY METHOD 09/05/2024 10:48 AM EDT [facility] Potassium 4.1 3.5 - 5.5 mmol/L LAB CHEMISTRY METHOD 09/05/2024 10:48 AM EDT [facility] Chloride 109 96 - 110 mmol/L LAB CHEMISTRY METHOD 09/05/2024 10:48 AM [facility] CO2 28 21 - 32 mmol/L LAB CHEMISTRY METHOD 09/05/2024 10:48 AM [facility] Anion Gap 5 3 - 11 LAB CHEMISTRY METHOD 09/05/2024 10:48 AM [facility] Glucose 85 70 - 100 mg/dL LAB CHEMISTRY METHOD 09/05/2024 10:48 AM [facility] BUN 11 5 - 25 mg/dL LAB CHEMISTRY METHOD 09/05/2024 10:48 AM [facility] Creatinine 0.60 0.50 - 1.10 mg/dL LAB CHEMISTRY METHOD 09/05/2024 10:48 AM [facility] eGFR 92 >=60 mL/min/1. 73m2 LAB CHEMISTRY METHOD 09/05/2024 10:48 AM [facility] Comment:Calculation based on the Chronic Kidney Disease Epidemiology Collaboration (CKD-EPI) equation refit without adjustment for race. BUN/Creatinine Ratio 18.3 LAB CHEMISTRY METHOD 09/05/2024 10:48 AM [facility] Calcium 8.8 8.5 - 10.5 mg/dL LAB CHEMISTRY METHOD 09/05/2024 10:48 AM [facility] AST (SGOT) 55(H) 10 - 42 unit/L LAB CHEMISTRY METHOD 09/05/2024 10:48 AM [facility] ALT (SGPT) 30 10 - 60 unit/L LAB CHEMISTRY METHOD 09/05/2024 10:48 AM [facility] Alkaline Phosphatase 84 42 - 121 unit/L LAB CHEMISTRY METHOD 09/05/2024 10:48 AM [facility] Total Protein 5.3(L) 6.0 - 8.0 g/dL LAB CHEMISTRY METHOD 09/05/2024 10:48 AM [facility] Albumin 2.8(L) 3.2 - 5.0 g/dL LAB CHEMISTRY METHOD 09/05/2024 10:48 AM EDT [facility] Total Bilirubin 0.9 0.0 - 1.4 mg/dL LAB CHEMISTRY METHOD 09/05/2024 10:48 AM [facility] Blood Venous blood specimen / Unknown Venipuncture / Unknown 09/05/2024 6:49 AM EDT 09/05/2024 9:23 AM EDT us Yaya Dobbins MD LAB BLOOD ORDERABLES Final Resu lt [facility] [address] [place] [address], [place] [phone] * (ABNORMAL) Complete blood count (09/05/2024 6:49 AM EDT) WBC 8.4 4.8 - 10.8 K/mcL LAB HEMETOLOGY METHOD 09/05/2024 10:27 AM [facility] RBC 3.10(L) 3.80 - 4.80 M/mcL LAB HEMETOLOGY METHOD 09/05/2024 10:27 AM [facility] Hemoglobin 9.4(L) 11.5 - 16.0 g/dL LAB HEMETOLOGY METHOD 09/05/2024 10:27 AM [facility] Hematocrit 28.8(L) 35.0 - 47.0 % LAB HEMETOLOGY METHOD 09/05/2024 10:27 AM [facility] MCV 92.9 79.0 - 98.0 FL LAB HEMETOLOGY METHOD 09/05/2024 10:27 AM [facility] MCH 30.3 27.0 - 32.0 pcg LAB HEMETOLOGY METHOD 09/05/2024 10:27 AM [facility] MCHC 32.6 32.0 - 37.0 g/dL LAB HEMETOLOGY METHOD 09/05/2024 10:27 AM EDT [facility] RDW 13.0 11.0 - 15.0 % LAB HEMETOLOGY METHOD 09/05/2024 10:27 AM EDT [facility] Platelets 194 130 - 400 K/mcL LAB HEMETOLOGY METHOD 09/05/2024 10:27 AM EDT [facility] MPV 11.2(H) 7.0 - 11.0 FL LAB HEMETOLOGY METHOD 09/05/2024 10:27 AM EDT [facility] NRBC 0.0 <1.0 % LAB HEMETOLOGY METHOD 09/05/2024 10:27 AM EDT [facility] NRBC Absolute 0.00 <0.10 K/mcL LAB HEMETOLOGY METHOD 09/05/2024 10:27 AM EDT [facility] Blood Venous blood specimen / Unknown Venipuncture / Unknown 09/05/2024 6:49 AM EDT 09/05/2024 9:23 AM EDT us Yaya Dobbins MD LAB BLOOD ORDERABLES Final Resu lt [facility] [address] [place] [address], documented in this encounter Visit Diagnoses Diagnosis Hyperlipidemia, unspecified Hypothyroidism, unspecified documented in this encounter Care Teams Med Surg Nurse Relationship Specialty Start Date End Date Yaya Dobbins MD [address] [place] [address] PCP - General Internal Medicine 09/05/24 documented as of this encounter
--- OUTSIDE RECORDS SUMMARY | 2025-02-18 16:54 | XMS_ITS | Clinical Summary ---
Author Organization [facility] Address [address] [place], [place] [id number] Phone Care Team Providers Care Concrete Pump Operator Helper Name Role Phone Rodolfo Stein MD Primary Care Provider [phone] Allergies Active Allergy Reactions Criticality Noted Date [...] topic Medical Devices Not on file Insurance [facility] HMO [address] [place], [place] [address]O [facility] [address] [place] [address] [place] [address]O [facility] HMO [facility] HMO Care Teams Concrete Pump Operator Helper Relationship Specialty Start Date End Date Rodolfo Stein MD [address] [place] [address] PCP - General Internal Medicine 01/22/14 Additional Source Comments The information contained in this document represents components of the legal health record. It is not the complete legal health record.[facility]
== END 2025-02-18 13:14 | disposition home or self-care (01) ==
LOC: HO.HUSH 13:00
PROVIDERS: PCP Physician Assistant Medical; Visit Provider Nurse Practitioner Family
DX: N20.0 Calculus of kidney (principal)
CPT/HCPCS: 99213; G2211

== ENCOUNTER → 2025-02-24 09:49 | Outpatient (BNV) | payer MEDICARE, SELFPAY | PROVIDERS: PCP Physician Assistant Medical; Visit Provider Physician Assistant Medical | DX: E11.9 Type 2 diabetes mellitus without complications (principal) | CPT/HCPCS: 83036 ==

== ENCOUNTER 2025-03-01 13:13 | Outpatient (REF) | payer MEDICARE, SELFPAY ==
--- NOTE | ~2025-03-01 | US_ITS ---
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 TECHNIQUE: Color flow triplex imaging and compression Doppler was performed to evaluate both the deep and the superficial systems bilaterally. To evaluate the superficial system, the examination was performed in the upright position. Color-flow Doppler ultrasound and compression ultrasound were utilized. In addition, maneuvers were utilized to demonstrate reflux. FINDINGS: 1. DEEP VENOUS ULTRASOUND OF THE RIGHT LOWER EXTREMITY: Common Femoral Vein: Compressible, normal respiratory variation and augmented flow. Femoral Vein: Compressible, normal color flow and augmentation. Popliteal Vein: Compressible, normal augmentation. Deep Reflux: There is no evidence of reflux in the deep system in either the common femoral vein, superficial femoral or the popliteal vein. There is no evidence of a Eagle's cyst. 2. SUPERFICIAL ULTRASOUND WITH DOPPLER OF RIGHT LOWER EXTREMITY: GREAT SAPHENOUS VEIN: Saphenofemoral Junction: 0.5 cm; Reflux: 0 ms Proximal Thigh: 0.3 cm; Reflux: 0 ms Mid Thigh: 0.3 cm; Reflux: 2332 ms Distal Thigh: 0.2 cm; Reflux: 0 ms At Knee: 0.2 cm; Reflux: 0 ms Proximal Calf: 0.3 cm; Reflux: 2760 ms Mid Calf: 0.1 cm; Reflux: 0 ms Distal Calf: 0.2 cm; Reflux: 0 ms DUPLICATED MEDIAL GREAT SAPHENOUS VEIN: Diameter: None imaged Reflux: NA DUPLICATED LATERAL GREAT SAPHENOUS VEIN: Diameter: None imaged Reflux: NA SMALL SAPHENOUS VEIN: Saphenopopliteal Junction: 0.3 cm; Reflux: 0 ms Proximal: 0.2 cm; Reflux: 0 ms Distal: 0.2 cm; Reflux: 0 ms VEIN OF GIACOMINI: Size: Neural 0.2 cm Reflux: NA PERFORATORS: Location: Mid thigh and calf. Size: 0.1 to 0.3 cm Reflux: NA VARICOSITIES: Location: Mid thigh Size: 0.4 centimeters Reflux: Greater than 3160 ms reflux Proximal thigh measuring 0.3 cm without reflux. 3. DEEP VENOUS ULTRASOUND OF THE LEFT LOWER EXTREMITY: Common Femoral Vein: Compressible, normal respiratory variation and augmented flow. Femoral Vein: Compressible, normal color flow and augmentation. Popliteal Vein: Compressible, normal augmentation. Deep Reflux: There is no evidence of reflux in the deep system in either the common femoral vein, superficial femoral or the popliteal vein. There is no evidence of a Eagle's cyst. 4. SUPERFICIAL ULTRASOUND WITH DOPPLER OF LEFT LOWER EXTREMITY: GREAT SAPHENOUS VEIN: Saphenofemoral Junction: 0.5 cm; Reflux: 0 ms Proximal Thigh: 0.5 cm; Reflux: 488 ms Mid Thigh: 0.5 cm; Reflux: 1028 ms Distal Thigh: 0.4 cm; Reflux: 1096 ms At Knee: 0.5 cm; Reflux: 03/06/2007 ms Proximal Calf: 0.4 cm; Reflux: 1440 ms Mid Calf: 0.4 cm; Reflux: 1688 ms Distal Calf: 0.2 cm; Reflux: 832 ms DUPLICATED MEDIAL GREAT SAPHENOUS VEIN: Diameter: None imaged Reflux: NA DUPLICATED LATERAL GREAT SAPHENOUS VEIN: Diameter: 0.3 cm Reflux: NA SMALL SAPHENOUS VEIN: Saphenopopliteal Junction: 0.2 cm; Reflux: 0 ms Proximal: 0.3 cm; Reflux: 0 ms Distal: 0.3 cm; Reflux: 0 ms VEIN OF GIACOMINI: Size: 0.3 cm Reflux: NA PERFORATORS: Location: Calf Size: 0.2 to 0.3 cm Reflux: NA VARICOSITIES: Location: Thigh Size: 0.3 cm Reflux: NA US/US venous insuf bilat IMPRESSION: Right: No evidence of DVT or deep venous reflux. Normal caliber right greater saphenous vein. Right greater saphenous vein reflux in the mid thigh and proximal calf measuring maximum 2.8 seconds. Normal caliber right lesser saphenous vein without reflux. Small perforators in the thigh and calf without reflux. Small varicosities in the thigh, 1 greater than 3.2 second reflux in the mid thigh. Left: No evidence of DVT or deep venous reflux. Normal caliber left greater saphenous vein. Diffuse reflux measuring maximum 1.7 seconds. Perforators in the calf without reflux. Varicosity is in the thigh without reflux. Electronically signed by: Merly Zuniga MD 03/01/2025 03:40 PM [facility]
--- OUTSIDE RECORDS SUMMARY | 2025-03-01 15:12 | XMS_ITS | Encounter Summary ---
Author Organization [facility] Address [address] [place] [address] Care Team Providers Care Corporate Sales Representative Name Role Phone Yaya Dobbins MD Primary Care Provider [phone] Encounter Details Date Type Department Care Team (Late st Contact Info) Description 09/05/2024 Lab Requisition [facility] - Main Lab [address] [facility] [place] [address] Yaya Dobbins MD [address] [place] [address] Hyperlipidemia, unspecified; Hypothyroidism, unspecified Social [...] LAB CHEMISTRY METHOD 09/05/2024 10:48 AM EDT [facility] Potassium 4.1 3.5 - 5.5 mmol/L LAB CHEMISTRY METHOD 09/05/2024 10:48 AM EDT [facility] Chloride 109 96 - [...] LAB CHEMISTRY METHOD 09/05/2024 10:48 AM EDT [facility] Total Bilirubin 0.9 0.0 - 1.4 mg/dL LAB CHEMISTRY METHOD 09/05/2024 10:48 AM [facility] Blood Venous blood specimen / Unknown Venipuncture / Unknown 09/05/2024 6:49 AM EDT 09/05/2024 9:23 AM EDT us Yaya Dobbins MD LAB BLOOD ORDERABLES Final Resu lt [facility] [address] [place] [address], [place] [phone] * (ABNORMAL) Complete blood count (09/05/2024 6:49 [...] LAB HEMETOLOGY METHOD 09/05/2024 10:27 AM EDT [facility] RDW 13.0 11.0 - 15.0 % LAB HEMETOLOGY METHOD 09/05/2024 10:27 AM EDT [facility] Platelets 194 130 - 400 K/mcL LAB HEMETOLOGY METHOD 09/05/2024 10:27 AM EDT [facility] MPV 11.2(H) 7.0 - 11.0 FL LAB HEMETOLOGY METHOD 09/05/2024 10:27 AM EDT [facility] NRBC 0.0 <1.0 % LAB HEMETOLOGY METHOD 09/05/2024 10:27 AM EDT [facility] NRBC Absolute 0.00 <0.10 K/mcL LAB HEMETOLOGY METHOD 09/05/2024 10:27 AM EDT [facility] Blood Venous blood specimen / Unknown Venipuncture / Unknown 09/05/2024 6:49 AM EDT 09/05/2024 9:23 AM EDT us Yaya Dobbins MD LAB BLOOD ORDERABLES Final Resu lt [facility] [address] [place] [address], documented in this encounter Visit Diagnoses Diagnosis Hyperlipidemia, unspecified Hypothyroidism, unspecified documented in this encounter Care Teams Corporate Sales Representative Relationship Specialty Start Date End Date Yaya Dobbins MD [address] [place] [address] PCP - General Internal Medicine 09/05/24 documented as of this encounter
--- OUTSIDE RECORDS SUMMARY | 2025-03-01 15:12 | XMS_ITS | Clinical Summary ---
Author Organization [facility] Address [address] [place], [place] [id number] Phone Care Team Providers Care Administrative Director Name Role Phone Rodolfo Stein MD Primary Care Provider [phone] Allergies Active Allergy Reactions Criticality Noted Date [...] topic Medical Devices Not on file Insurance [facility] HMO [address] [place], [place] [id number] [facility] [address] [place] [place] [address] [place], [place] [address]O [facility] HMO [facility] HMO Care Teams Administrative Director Relationship Specialty Start Date End Date Rodolfo Stein MD [address] [place] [id number] PCP - General Internal Medicine 01/22/14 Additional Source Comments The information contained in this document represents components of the legal health record. It is not the complete legal health record.[facility]
--- OUTSIDE RECORDS SUMMARY | 2025-03-01 15:12 | XMS_ITS | Encounter Summary ---
Author Organization [facility] Address [address] [place] [address] Care Team Providers Care Vocational Rehab Consultant Name Role Phone Yaya Dobbins MD Primary Care Provider [phone] Encounter Details Date Type Department Care Team (Late st Contact Info) Description 09/11/2024 Lab Requisition [facility] - Main Lab [address] [facility] [place] [address] Yaya Dobbins MD [address] [...] mmol/L LAB CHEMISTRY METHOD 09/14/2024 1:49 PM [facility] CO2 26 21 - 32 mmol/L LAB CHEMISTRY METHOD 09/14/2024 1:49 PM [facility] Anion Gap 7 3 - 11 LAB CHEMISTRY METHOD 09/14/2024 1:49 PM [facility] Glucose 72 70 - 100 mg/dL LAB CHEMISTRY METHOD 09/14/2024 1:49 PM [facility] BUN 12 5 - 25 mg/dL LAB CHEMISTRY METHOD 09/14/2024 1:49 PM [facility] Creatinine 0.64 0.50 - 1.10 mg/dL LAB CHEMISTRY METHOD 09/14/2024 1:49 PM [facility] eGFR 91 >=60 mL/min/1. 73m2 LAB CHEMISTRY METHOD 09/14/2024 1:49 PM [facility] Comment:Calculation based on the Chronic Kidney Disease Epidemiology Collaboration (CKD-EPI) equation refit without adjustment for race. BUN/Creatinine Ratio 18.8 LAB CHEMISTRY METHOD 09/14/2024 1:49 PM [facility] Calcium 9.0 8.5 - 10.5 mg/dL LAB CHEMISTRY METHOD 09/14/2024 1:49 PM [facility] AST (SGOT) 43(H) 10 - 42 unit/L LAB CHEMISTRY METHOD 09/14/2024 1:49 PM [facility] ALT (SGPT) 31 10 - 60 unit/L LAB CHEMISTRY METHOD 09/14/2024 1:49 PM [facility] Alkaline Phosphatase 125(H) 42 - 121 unit/L LAB CHEMISTRY METHOD 09/14/2024 1:49 PM [facility] Total Protein 5.3(L) 6.0 - 8.0 g/dL LAB CHEMISTRY METHOD 09/14/2024 1:49 PM [facility] Albumin 2.9(L) 3.2 - 5.0 g/dL LAB CHEMISTRY METHOD 09/14/2024 1:49 PM EDT [facility] Total Bilirubin 0.5 0.0 - 1.4 mg/dL LAB CHEMISTRY METHOD 09/14/2024 1:49 PM [facility] Blood Venous blood specimen / Unknown Venipuncture / Unknown 09/14/2024 4:53 AM EDT 09/14/2024 10:55 AM EDT us Yaya Dobbins MD LAB BLOOD ORDERABLES Final Resu lt [facility] [address] [place] [address], * (ABNORMAL) Complete blood count (09/14/2024 4:53 AM EDT) WBC 7.1 4.8 - 10.8 K/mcL LAB HEMETOLOGY METHOD 09/14/2024 11:19 AM [facility] RBC 3.20(L) 3.80 - 4.80 M/mcL LAB HEMETOLOGY METHOD 09/14/2024 11:19 AM [facility] Hemoglobin 10.0(L) 11.5 - 16.0 g/dL LAB HEMETOLOGY METHOD 09/14/2024 11:19 AM [facility] Hematocrit 32.0(L) 35.0 - 47.0 % LAB HEMETOLOGY METHOD 09/14/2024 11:19 AM [facility] MCV 100.6(H) 79.0 - 98.0 FL LAB HEMETOLOGY METHOD 09/14/2024 11:19 AM [facility] MCH 31.4 27.0 - 32.0 pcg LAB HEMETOLOGY METHOD 09/14/2024 11:19 AM [facility] MCHC 31.3(L) 32.0 - 37.0 [...] Resu lt [facility] [address] [place] [address], documented in this encounter Visit Diagnoses Diagnosis Hyperlipidemia, unspecified documented in this encounter Care Teams Vocational Rehab Consultant Relationship Specialty Start Date End Date Yaya Dobbins MD [address] [place] [address] PCP - General Internal Medicine 09/05/24 documented as of this encounter
--- OUTSIDE RECORDS SUMMARY | 2025-03-01 15:12 | XMS_ITS | Encounter Summary ---
Author Organization [facility] Address [address] [place] [address] Care Team Providers Care Ict Managers Name Role Phone Yaya Dobbins MD Primary Care Provider [phone] Encounter Details Date Type Department Care Team (Late st Contact Info) Description 09/07/2024 Lab Requisition [facility] - Main Lab [address] [facility] [place] [address] Yaya Dobbins MD [address] [place] [address] Hypothyroidism, unspecified; Hyperlipidemia, unspecified Social [...] LAB CHEMISTRY METHOD 09/07/2024 12:51 PM EDT [facility] Potassium 4.0 3.5 - 5.5 mmol/L LAB CHEMISTRY METHOD 09/07/2024 12:51 PM EDT [facility] Chloride 111(H) 96 - 110 [...] LAB CHEMISTRY METHOD 09/07/2024 12:51 PM EDT [facility] Total Bilirubin 0.9 0.0 - 1.4 mg/dL LAB CHEMISTRY METHOD 09/07/2024 12:51 PM EDT [facility] Blood Venous blood specimen / Unknown Venipuncture / Unknown 09/07/2024 5:09 AM EDT 09/07/2024 11:28 AM EDT us Yaya Dobbins MD LAB BLOOD ORDERABLES Final Resu lt [facility] [address] [place] [address], [place] [phone] * (ABNORMAL) Complete blood count (09/07/2024 5:09 AM EDT) WBC 8.2 4.8 - 10.8 K/mcL LAB HEMETOLOGY METHOD 09/07/2024 1:09 PM EDT [facility] RBC 3.10(L) 3.80 - 4.80 M/mcL LAB HEMETOLOGY METHOD 09/07[facility]24 [facility] Hemoglobin 9.3(L) 11.5 - 16.0 g/dL LAB HEMETOLOGY METHOD 09/07/2024 1:09 PM EDT [facility] Hematocrit 29.6(L) 35.0 - 47.0 % LAB HEMETOLOGY METHOD 09/07/2024 1:09 PM EDT [facility] MCV 97.0 79.0 - 98.0 FL LAB HEMETOLOGY METHOD 09/07/2024 1[facility] MCH 30.5 27.0 - 32.0 pcg LAB HEMETOLOGY METHOD 09/07/2024 1:09 PM EDT [facility] MCHC 31.4(L) 32.0 - 37.0 g/dL LAB HEMETOLOGY METHOD 09/07/2024 1:09 PM EDT [facility] RDW 13.6 11.0 - 15.0 % LAB HEMETOLOGY METHOD 09/07/2024 1:09 PM EDT [facility] Platelets 229 130 - 400 K/mcL LAB HEMETOLOGY METHOD 09/07/2024 1:09 PM EDT [facility] MPV 10.7 7.0 - 11.0 FL LAB HEMETOLOGY METHOD 09/07/2024 1:09 PM EDT [facility] NRBC 0.0 <1.0 % LAB HEMETOLOGY METHOD 09/07/2024 1:09 PM EDT [facility] NRBC Absolute 0.00 <0.10 K/mcL LAB HEMETOLOGY METHOD 09/07/2024 1:09 PM EDT [facility] Blood Venous blood specimen / Unknown Venipuncture / Unknown 09/07/2024 5:09 AM EDT 09/07/2024 11:28 AM EDT Yaya Dobbins MD LAB BLOOD ORDERABLES Final Resu lt [facility] [address] [place] [address], [place] [phone] documented in this encounter Visit Diagnoses Diagnosis Hypothyroidism, unspecified Hyperlipidemia, unspecified documented in this encounter Care Teams Ict Managers Relationship Specialty Start Date End Date Yaya Dobbins MD [address] [place] [address] PCP - General Internal Medicine 09/05/24 documented as of this encounter
--- OUTSIDE RECORDS SUMMARY | 2025-03-01 15:12 | XMS_ITS | Encounter Summary ---
Author Organization [facility] Address [address] [place] [address] Care Team Providers Care Brand Planner Name Role Phone Yaya Dobbins MD Primary Care Provider [phone] Encounter Details Date Type Department Care Team (Late st Contact Info) Description 09/19/2024 Lab Requisition [facility] - Main Lab 299 [facility] [place] [address] Yaya Dobbins MD [address] [place] [address] Hyperlipidemia, unspecified Social History Tobacco [...] LAB CHEMISTRY METHOD 09/21/2024 11:20 AM T [facility] Potassium 4.0 3.5 - 5.5 mmol/L LAB CHEMISTRY METHOD 09/21/2024 11:20 AM EDT [facility] Chloride 114(H) 96 - [...] Resu lt [facility] [address] [place] [address], * (ABNORMAL) Complete blood count (09/21/2024 4:46 [...] 10:22 AM EDT [facility] RDW 15.7(H) 11.0 - 15.0 % LAB HEMETOLOGY METHOD 09/21/2024 10:22 AM EDT [facility] Platelets 273 130 - 400 K/mcL LAB HEMETOLOGY METHOD 09/21/2024 10:22 AM EDT [facility] MPV 10.6 7.0 - 11.0 FL LAB HEMETOLOGY METHOD 09/21/2024 10:22 AM EDT [facility] NRBC 0.0 <1.0 % LAB HEMETOLOGY METHOD 09/21/2024 10:22 AM EDT [facility] NRBC Absolute 0.00 <0.10 K/mcL LAB HEMETOLOGY METHOD 09/21/2024 10:22 AM EDT [facility] Blood Venous blood specimen / Unknown Venipuncture / Unknown 09/21/2024 4:46 AM EDT 09/21/2024 10:02 AM EDT Yaya Dobbins MD LAB BLOOD ORDERABLES Final Resu lt [facility] [address] [place] [address], documented in this encounter Visit Diagnoses Diagnosis Hyperlipidemia, unspecified documented in this encounter Care Teams Brand Planner Relationship Specialty Start Date End Date Yaya Dobbins MD [address] [place] [address] PCP - General Internal Medicine 09/05/24 documented as of this encounter
--- OUTSIDE RECORDS SUMMARY | 2025-03-01 15:12 | XMS_ITS | Encounter Summary ---
Author Organization [facility] Address [address] [place] [address] Care Team Providers Care Pressure Dispatcher Name Role Phone Yaya Dobbins MD Primary Care Provider [phone] Encounter Details Date Type Department Care Team (Late st Contact Info) Description 09/16/2024 Lab Requisition [facility] - Main Lab [address] [facility] [place] [address] Yaya Dobbins MD [address] [place] [address] Hyperlipidemia, unspecified Social History [...] mmol/L LAB CHEMISTRY METHOD 09/17/2024 9:[address] [facility] CO2 26 21 - 32 mmol/L LAB CHEMISTRY METHOD 09/17/2024 9:[address] [facility] Anion Gap 5 3 - 11 LAB CHEMISTRY METHOD 09/17/2024 9:[address] [facility] Glucose 77 70 - 100 mg/dL LAB CHEMISTRY METHOD 09/17/2024 9:[address] [facility] BUN 11 5 - 25 mg/dL LAB CHEMISTRY METHOD 09/17/2024 9:[address] [facility] Creatinine 0.65 0.50 - 1.10 mg/dL LAB CHEMISTRY METHOD 09/17/2024 9:[address] [facility] eGFR 90 >=60 mL/min/1. 73m2 LAB CHEMISTRY METHOD 09/17/2024 9:[address] [facility] Comment:Calculation based on the Chronic Kidney Disease Epidemiology Collaboration (CKD-EPI) equation refit without adjustment for race. BUN/Creatinine Ratio 16.9 LAB CHEMISTRY METHOD 09/17/2024 9:[address] [facility] Calcium 9.2 8.5 - 10.5 mg/dL LAB CHEMISTRY METHOD 09/17/2024 9:[address] [facility] Blood Venous blood specimen / Unknown Venipuncture / Unknown 09/17/2024 4:51 AM EDT 09/17/2024 7:42 AM EDT us Yaya Dobbins MD LAB BLOOD ORDERABLES Final Resu lt [facility] [address] [place] [address], * (ABNORMAL) Complete blood count (09/17/2024 4:51 AM EDT) WBC 5.9 4.8 - 10.8 K/[facility] LAB HEMETOLOGY METHOD 09/17/2024 8:[address] [facility] RBC 3.30(L) 3.80 - 4.80 M/mcL LAB HEMETOLOGY METHOD 09/17/2024 8:[address] [facility] Hemoglobin 10.1(L) 11.5 - 16.0 g/dL LAB HEMETOLOGY METHOD 09/17/2024 8:[address] [facility] Hematocrit 32.4(L) 35.0 - 47.0 % LAB HEMETOLOGY METHOD 09/17/2024 8:[address] [facility] MCV 99.7(H) 79.0 - 98.0 FL LAB HEMETOLOGY METHOD 09/17/2024 8:[address] [facility] MCH 31.1 27.0 - 32.0 pcg LAB HEMETOLOGY METHOD 09/17/2024 8:[address] [facility] MCHC 31.2(L) 32.0 - 37.0 g/dL LAB HEMETOLOGY METHOD 09/17/2024 8:[address] [facility] RDW 15.2(H) 11.0 - 15.0 % LAB HEMETOLOGY METHOD 09/17/2024 8:[address] [facility] Platelets 324 130 - 400 K/mcL LAB HEMETOLOGY METHOD 09/17/2024 8:[address] [facility] MPV 10.1 7.0 - 11.0 FL LAB HEMETOLOGY METHOD 09/17/2024 8:[address] [facility] NRBC 0.0 <1.0 % LAB HEMETOLOGY METHOD 09/17/2024 8:[address] [facility] NRBC Absolute 0.00 <0.10 K/mcL LAB HEMETOLOGY METHOD 09/17/2024 8:[address] [facility] Blood Venous blood specimen / Unknown Venipuncture / Unknown 09/17/2024 4:51 AM EDT 09/17/2024 7:42 AM EDT Yaya Dobbins MD LAB BLOOD ORDERABLES Final Resu lt [facility] [address] [place] [address], documented in this encounter Visit Diagnoses Diagnosis Hyperlipidemia, unspecified documented in this encounter Care Teams Pressure Dispatcher Relationship Specialty Start Date End Date Yaya Dobbins MD [address] [place] [address] PCP - General Internal Medicine 09/05/24 documented as of this encounter
--- OUTSIDE RECORDS SUMMARY | 2025-03-01 15:12 | XMS_ITS | Encounter Summary ---
Author Organization [facility] Address [address] [place] [address] Care Team Providers Care Laboratory Chemical Assistant Name Role Phone Yaya Dobbins MD Primary Care Provider [phone] Encounter Details Date Type Department Care Team (Late st Contact Info) Description 09/09/2024 Lab Requisition [facility] - Main Lab [address] [facility] [place] [address] Yaya Dobbins MD [address] [place] [address] Hyperlipidemia, unspecified Social History Tobacco [...] LAB CHEMISTRY METHOD 09/10/2024 9:35 AM EDT [facility] Potassium 4.2 3.5 - 5.5 mmol/L LAB CHEMISTRY METHOD 09/10/2024 9:35 AM EDT [facility] Chloride 113(H) 96 - 110 mmol/L LAB CHEMISTRY METHOD 09/10/2024 9:35 AM [facility] CO2 26 21 - 32 mmol/L LAB CHEMISTRY METHOD 09/10/2024 9:35 AM [facility] Anion Gap 5 3 - 11 LAB CHEMISTRY METHOD 09/10/2024 9:35 AM [facility] Glucose 86 70 - 100 mg/dL LAB CHEMISTRY METHOD 09/10/2024 9:35 AM [facility] BUN 10 5 - 25 mg/dL LAB CHEMISTRY METHOD 09/10/2024 9:35 AM [facility] Creatinine 0.51 0.50 - 1.10 mg/dL LAB CHEMISTRY METHOD 09/10/2024 9:35 AM [facility] eGFR 96 >=60 mL/min/1. 73m2 LAB CHEMISTRY METHOD 09/10/2024 9:35 AM [facility] Comment:Calculation based on the Chronic Kidney Disease Epidemiology Collaboration (CKD-EPI) equation refit without adjustment for race. BUN/Creatinine Ratio 19.6 LAB CHEMISTRY METHOD 09/10/2024 9:35 AM [facility] Calcium 9.1 8.5 - 10.5 mg/dL LAB CHEMISTRY METHOD 09/10/2024 9:35 AM [facility] Blood Venous blood specimen / Unknown Venipuncture / Unknown 09/10/2024 4:58 AM EDT 09/10/2024 8:42 AM EDT us Yaya Dobbins MD LAB BLOOD ORDERABLES Final Resu lt [facility] [address] [place] [address], * (ABNORMAL) Complete blood count (09/10/2024 4:58 AM EDT) WBC 7.7 4.8 - 10.8 K/[facility] LAB HEMETOLOGY METHOD 09/10/2024 9:07 AM [facility] RBC 3.00(L) 3.80 - 4.80 M/mcL LAB HEMETOLOGY METHOD 09/10/2024 9:07 AM [facility] Hemoglobin 9.5(L) 11.5 - 16.0 g/dL LAB HEMETOLOGY METHOD 09/10/2024 9:07 AM [facility] Hematocrit 29.7(L) 35.0 - 47.0 % LAB HEMETOLOGY METHOD 09/10/2024 9:07 AM [facility] MCV 98.3(H) 79.0 - 98.0 FL LAB HEMETOLOGY METHOD 09/10/2024 9:07 AM [facility] MCH 31.5 27.0 - 32.0 pcg LAB HEMETOLOGY METHOD 09/10/2024 9:07 AM [facility] MCHC 32.0 32.0 - 37.0 g/dL LAB HEMETOLOGY METHOD 09/10/2024 9:07 AM [facility] RDW 14.1 11.0 - 15.0 % LAB HEMETOLOGY METHOD 09/10/2024 9:07 AM [facility] Platelets 304 130 - 400 K/mcL LAB HEMETOLOGY METHOD 09/10/2024 9:07 AM [facility] MPV 10.5 7.0 - 11.0 FL LAB HEMETOLOGY METHOD 09/10/2024 9:07 AM [facility] NRBC 0.0 <1.0 % LAB HEMETOLOGY METHOD 09/10/2024 9:07 AM [facility] NRBC Absolute 0.00 <0.10 K/mcL LAB HEMETOLOGY METHOD 09/10/2024 9:07 AM [facility] Blood Venous blood specimen / Unknown Venipuncture / Unknown 09/10/2024 4:58 AM EDT 09/10/2024 8:45 AM EDT Yaya Dobbins MD LAB BLOOD ORDERABLES Final Resu lt [facility] [address] [place] [address], documented in this encounter Visit Diagnoses Diagnosis Hyperlipidemia, unspecified documented in this encounter Care Teams Laboratory Chemical Assistant Relationship Specialty Start Date End Date Yaya Dobbins MD [address] [place] [address] PCP - General Internal Medicine 09/05/24 documented as of this encounter
--- OUTSIDE RECORDS SUMMARY | 2025-03-01 15:12 | XMS_ITS | Clinical Summary ---
Author Organization [address] [facility] Address [address] [place] [address] Phone Care Team Providers Care Double End Trimmer Name Role Phone Yaya Dobbins MD Primary Care Provider [phone] Social History Tobacco Use Types Packs/Day Years [...] patient's age to complete this topic Insurance [facility] Care Teams Double End Trimmer Relationship Specialty Start Date End Date Yaya Dobbins MD [address] [place] [id number] PCP - General Internal Medicine 09/05/24
== END 2025-03-01 13:14 ==
LOC: HO.US 13:13
PROVIDERS: PCP Physician Assistant Medical; Visit Provider Surgery Vascular Surgery
DX: I83.11 Varicose veins of right lower extremity with inflammation (principal)
CPT/HCPCS: 93970

== ENCOUNTER → 2025-03-01 13:17 | Outpatient (BNV) | payer MEDICARE, SELFPAY | PROVIDERS: PCP Physician Assistant Medical; Visit Provider Radiology Diagnostic Radiology | DX: I83.11 Varicose veins of right lower extremity with inflammation (principal); I83.12 Varicose veins of left lower extremity with inflammation | CPT/HCPCS: 93970 ==